=== PATIENT | male | born 1960 ===

== ENCOUNTER 2017-01-27 15:38 | Inpatient (IN) | payer MEDICAID, OTHER ==
[2017-01-27 15:45] VITALS: BMI 26.3
[2017-01-27] MEDS ORDERED: Sodium Chloride 0.9% 1,000 ML IV ONE ×3 (17:06→20:59)
--- NOTE | 2017-01-27 17:52 | C.PDOC ---
History Of Present Illness Patient BIBA from home for evaluation of nausea, vomiting and decreased PO intake for the last 3-4 days. Patient denies any current symptoms. Patient has h/o dementia, CAD, CHF, diabetes, DKA, HTN, schizophrenia, anemia. Time Seen by Provider: 01/27/17 17:05 Chief Complaint (Nursing): GI Problem History Per: Patient History/Exam Limitations: other (poor historian) Current Symptoms Are (Timing): Still Present Severity: Mild Past Medical History Reviewed: Historical Data, Nursing Documentation, Vital Signs Vital Signs: Last Vital Signs Temp 98.0 F 01/27/17 15:45 Pulse 82 01/27/17 15:45 Resp 16 01/27/17 15:45 BP 125/78 01/27/17 15:45 Pulse Ox 100 01/27/17 19:07 - Medical History PMH: Anemia, Anxiety, Bipolar Disorder, CAD, CHF, Dementia, Depression, Diabetes (DKA), Fractures (Skull), HTN, Schizophrenia - [facility] Procedures INSERTION OF ENDOTRACHEAL AIRWAY INTO TRACHEA, VIA OPENING (12/06/14) INTRODUCTION OF SERUM/TOX/VACCINE INTO MUSCLE, PERC APPROACH (11/26/16) OCCUPATIONAL THERAPY (06/01/14) PHYSICAL THERAPY NEC (06/01/14) RESPIRATORY VENTILATION, 24-96 CONSECUTIVE HOURS (12/06/14) VACCINATION NEC (06/15/14) Family History: States: No Known Family Hx - Social History Hx Tobacco Use: Yes Hx Alcohol Use: No Hx Substance Use: No - Immunization History Hx Tetanus Toxoid Vaccination: No Hx Influenza Vaccination: No Hx Pneumococcal Vaccination: No Review Of Systems Except As Marked, All Systems Reviewed And Found Negative. Constitutional: Negative for: Fever, Chills Cardiovascular: Negative for: Chest Pain, Palpitations Respiratory: Negative for: Cough, Shortness of Breath Gastrointestinal: Positive for: Nausea, Vomiting, Abdominal Pain. Negative for : Diarrhea Genitourinary: Negative for: Dysuria, Hematuria Physical Exam - Physical Exam Appears: Well, Non-toxic, No Acute Distress Skin: Normal Color, Warm, Dry Oral Mucosa: Moist Cardiovascular: Rhythm Regular Respiratory: Normal Breath Sounds, No Rales, No Rhonchi, No Wheezing Gastrointestinal/Abdominal: Normal Exam, Bowel Sounds, Soft, No Tenderness Neurological/Psych: Other (awake, alert) ED Course And Treatment - Laboratory Results Result Diagrams: 01/27/17 17:44 11/24/17 17:44 ECG: Interpreted By Me, Viewed By Me (NSR 73 bpm, normal axis, no peaked T waves , no QRS widening, no acute ST/ T wave changes) ECG Interpretation: No Acute Changes O2 Sat by Pulse Oximetry: 100 (RA) Pulse Ox Interpretation: Normal - Radiology CXR: Interpreted by Me, Viewed By Me CXR Interpretation: Yes: No Acute Disease. No: Infiltrates Progress Note: Blood work ordered and reviewed. Patient given IV NS bolus. 6: 25pm- Spoke with intenisivist Dr. Robles Wong, agrees with ICU admission for DKA. Pending call back from hospitalst. VBG and insulin drip ordered, as well as CXR , blood culture, urine culture. 6:35PM- Spoke with hospitalist, she agrees with admission to her service. Disposition - Disposition
[2017-01-27] MEDS ORDERED: Sodium Chloride 0.9% 1,000 ML ONE ×2 (17:54→19:04)
[2017-01-27 17:56] LABS: BASO % 0.5 % (0.0-2.0); EOS % 0.3 % (0.0-4.0); HEMATOCRIT 32.8 % (35.0-51.0); LYMPH # 3.1 K/uL (1.0-4.3); LYMPH % 34.5 % (20.0-40.0); MEAN CELL VOLUME 93.4 fL (80.0-94.0); MEAN CORPUSCULAR HEMOGLOBIN 30.7 pg (27.0-31.0); MEAN CORPUSCULAR HGB CONC 32.9 g/dL (33.0-37.0); MEAN PLATELET VOLUME 8.3 fL (7.2-11.7); MONO # 0.4 K/uL (0.0-0.8); MONO % 4.9 % (0.0-10.0); RED CELL DISTRIBUTION WIDTH 12.6 % (11.5-14.5)
[2017-01-27 18:15] LABS: URINE COLOR YELLOW (YELLOW)
[2017-01-27 18:16] LABS: PH,URINE 5.5 (5.0-8.0); RBC URINE 1 /hpf (0-3); URINE BILIRUBIN NEGATIVE (NEGATIVE); URINE BLOOD NEGATIVE (NEGATIVE); URINE GLUCOSE (UA) >1000 mg/dL (Normal); URINE KETONE 40 mg/dL (NEGATIVE); URINE LEUKOCYTE ESTERASE NEGATIVE Leu/uL (Negative); URINE PROTEIN 30 mg/dL (NEGATIVE); URINE UROBILINOGEN 0.2 mg/dL (0.2-1.0); WBC URINE 2 /hpf (0-5)
[2017-01-27 18:21] LABS: ALB/GLOB RATIO 1.9 (1.0-2.1); ALKALINE PHOSPHATASE 126 U/L (38-126); ALT/SGPT 90 U/L (21-72); AST/SGOT 37 U/L (17-59); BILIRUBIN,TOTAL 0.8 mg/dL (0.2-1.3); BLOOD UREA NITROGEN 48 mg/dL (9-20); CALCIUM 8.9 mg/dl (8.6-10.4); CARBON DIOXIDE 15 mmol/L (22-30); CHLORIDE 85 mmol/L (98-107); GFR AFRICAN-AMERICAN 51; POTASSIUM 6.5 mmol/L (3.6-5.2); SODIUM 120 mmol/L (132-148); TOTAL PROTEIN 6.5 g/dL (6.3-8.3)
[2017-01-27] MEDS ORDERED: Insulin Human Regular 100 UNIT in Sodium Chloride 0.9% 99 ML IV STA ×2 (18:21→21:07)
[2017-01-27] MEDS ORDERED: Calcium Gluconate 4.65 MEQ in Dextrose 5% In Water 100 ML IV STA (18:36)
[2017-01-27 18:51] LABS: GLUCOSE,RANDOM 754 mg/dL (75-110)
--- NOTE | 2017-01-27 18:57 | CP.PCM.CON ---
<Bret Rodriguez - Last Filed: 01/27/17 19:04> History of Present Illness - History of Present Illness History of Present Illness: PGY1 ICU Consult Note for Dr. Wong ICU Consult for DKA w/ anion gap of 27 56 year old male presents to the emergency room and was found to be in DKA. Patient does not appear to be in acute distress. Denied any problems. Did not know why he was at the hospital. Did not respond to other questions when attempting to obtain history. Patient states he is hungry and would like a sandwich. Per ED note, patient has had nausea, vomiting and decreased PO intake for the past 3-4 days. All information from chart review: PMHx: dementia, CAD, CHF, diabetes, DKA, HTN, schizophrenia, anemia. PSH: unknown Allergies: NKDA Medications: As per med rec, questionable compliance Family Hx: Unable to obtain Social Hx: Lives with /family, no tobacco or EtOH reported Surrogate: , info on chart Review of Systems - Review of Systems Systems not reviewed;Unavailable: Other (patient does not answer give any history.) Past Patient History - Infectious Disease Hx of Infectious Diseases: None - Tetanus Immunizations Tetanus Immunization: Unknown - Past Medical History & Family History Past Medical History?: Yes - Past Social History Smoking Status: Heavy Smoker > 10 Cigarettes Daily - CARDIAC Hx Congestive Heart Failure: Yes Hx Hypertension: Yes - PULMONARY Hx Tuberculosis: No (Pt denies) - NEUROLOGICAL Hx Dementia: Yes - HEENT Hx HEENT Problems: No - RENAL Hx Chronic Kidney Disease: No Hx Kidney Stones: No - ENDOCRINE/METABOLIC Hx Endocrine Disorders: Yes Hx Diabetes Mellitus Type 2: Yes - HEMATOLOGICAL/ONCOLOGICAL Hx Anemia: Yes - INTEGUMENTARY Hx Dermatological Problems: No - MUSCULOSKELETAL/RHEUMATOLOGICAL Hx Fractures: Yes (Skull) - GASTROINTESTINAL Hx Gastrointestinal Disorders: Yes HX Swallowing Problems: Yes ( has to blend food) - GENITOURINARY/GYNECOLOGICAL Hx Sexually Transmitted Disorders: No - PSYCHIATRIC Hx Anxiety: Yes Hx Bipolar Disorder: Yes Hx Depression: Yes Hx Schizophrenia: Yes Hx Substance Use: No - SURGICAL HISTORY Hx Surgeries: Yes Other/Comment: metal plates in head (skull fx) - ANESTHESIA Hx Anesthesia: Yes Hx Anesthesia Reactions: No Hx Malignant Hyperthermia: No Meds Allergies/Adverse Reactions: Allergies Allergy/AdvReac Type Severity Reaction Status Date / Time No Known Allergies Allergy Verified 01/27/17 15:42 - Medications Medications: Current Medications Insulin Human Regular 100 unit (/ Sodium Chloride) 100 mls @ 2 mls/hr IV .Q24H STA Stop: 01/28/17 18:20 Sodium Chloride (Sodium Chloride 0.9%) 1,000 mls @ 1,000 mls/hr IV .Q1H ONE Stop: 01/27/17 19:21 Calcium Gluconate 4.65 meq/ (Dextrose) 110 mls @ 1 mls/hr IV ONCE STA Stop: 02/01/17 08:35 Physical Exam - Constitutional Appears: No Acute Distress, Other (disheveled. ) - Head Exam Head Exam: ATRAUMATIC, NORMOCEPHALIC - Eye Exam Eye Exam: EOMI, Normal appearance - ENT Exam ENT Exam: Mucous Membranes Moist - Respiratory Exam Respiratory Exam: NORMAL BREATHING PATTERN. absent: Accessory Muscle Use, Respiratory Distress - Cardiovascular Exam Cardiovascular Exam: REGULAR RHYTHM - GI/Abdominal Exam GI & Abdominal Exam: Soft. absent: Distended, Firm, Guarding, Rigid, Tenderness - Extremities Exam Extremities exam: Positive for: pedal pulses present. Negative for: calf tenderness, pedal edema Additional comments: no hair on legs - Neurological Exam Neurological exam: Alert - Psychiatric Exam Additional comments: Patient states that he is hungry and would like a sandwich. Denied any problems. Did not know why he was at the hospital. Did not respond to other questions when attempting to obtain history. - Skin Skin Exam: Dry, Normal Color, Warm Results - Vital Signs Recent Vital Signs: Last Vital Signs Temp 98.0 F 01/27/17 15:45 Pulse 82 01/27/17 15:45 Resp 16 01/27/17 15:45 BP 125/78 01/27/17 15:45 Pulse Ox 100 01/27/17 18:49 - Labs Result Diagrams: 01/27/17 17:44 01/27/17 17:44 Labs: Laboratory Results - last 24 hr 01/27/17 01/27/17 01/27/17 15:53 17:44 17:44 WBC 9.0 D RBC 3.52 L Hgb 10.8 L Hct 32.8 L MCV 93.4 MCH 30.7 MCHC 32.9 L RDW 12.6 Plt Count 280 D MPV 8.3 Neut % (Auto) 59.8 Lymph % (Auto) 34.5 [place] % (Auto) 4.9 Eos % (Auto) 0.3 Baso % (Auto) 0.5 Neut # 5.4 Lymph # 3.1 [place] # 0.4 Eos # 0.0 Baso # 0.0 Sodium Potassium Chloride Carbon Dioxide Anion Gap BUN Creatinine Est GFR ( Amer) Est GFR (Non-Af Amer) POC Glucose (mg/dL) 468 H* Calcium Total Bilirubin AST ALT Alkaline Phosphatase Total Protein Albumin Globulin Albumin/Globulin Ratio Urine Color Yellow Urine Clarity Clear Urine pH 5.5 Ur Specific [place] 1.015 Urine Protein 30 Urine Glucose (UA) >1000 Urine Ketones 40 Urine Blood Negative Urine Nitrate Negative Urine Bilirubin Negative Urine Urobilinogen 0.2 Ur Leukocyte Esterase Negative Urine WBC (Auto) 2 Urine RBC (Auto) 1 Ur Squamous Epith Cells 2 Serum Ketones 01/27/17 17:44 WBC RBC Hgb Hct MCV MCH MCHC RDW Plt Count MPV Neut % (Auto) Lymph % (Auto) [place] % (Auto) Eos % (Auto) Baso % (Auto) Neut # Lymph # [place] # Eos # Baso # Sodium 120 L* Potassium 6.5 H* D Chloride 85 L Carbon Dioxide 15 L Anion Gap 27 H BUN 48 H Creatinine 1.7 H Est GFR ( Amer) 51 Est GFR (Non-Af Amer) 42 POC Glucose (mg/dL) Calcium 8.9 Total Bilirubin 0.8 AST 37 ALT 90 H D Alkaline Phosphatase 126 D Total Protein 6.5 Albumin 4.3 Globulin 2.2 Albumin/Globulin Ratio 1.9 Urine Color Urine Clarity Urine pH Ur Specific [place] Urine Protein Urine Glucose (UA) Urine Ketones Urine Blood Urine Nitrate Urine Bilirubin Urine Urobilinogen Ur Leukocyte Esterase Urine WBC (Auto) Urine RBC (Auto) Ur Squamous Epith Cells Serum Ketones Large Assessment & Plan - Assessment and Plan (Free Text) Assessment: 56 year old male with PMH of dementia, CAD, CHF, diabetes, HTN, schizophrenia, anemia presenting in DKA. Plan: Endo: Glucose 754 Sodium 120 Potassium 6.5 ED course: Calcium gluconate, 10 units of insulin given, Insulin drip started, 2L NS fluid bolus, ekg, cxr, vbg initial VBG - pO2 33/pCO2 33/HCO3 15.5/pH 7.27 Patient appears comfortable on exam. No agonal breathing. continue insulin drip f/u BMP/mag/phos q6h f/u VBG q2h keep NPO accuchecks q1h Case discussed with Dr. Wong <Ira Wong - Last Filed: 01/28/17 06:47> Meds - Medications Medications: Current Medications Heparin Sodium (Porcine) (Heparin) 5,000 units SC Q12 ALIE Calcium Gluconate 4.65 meq/ (Sodium Chloride) 110 mls @ 1 mls/hr IV ONCE STA Stop: 02/01/17 09:03 Last Admin: 01/27/17 19:13 Dose: 1 mls/hr Insulin Human Regular 100 unit (/ Sodium Chloride) 100 mls @ 2 mls/hr IV .Q24H STA PRN Reason: Protocol Stop: 01/28/17 21:06 Last Titration: 01/28/17 00:00 Dose: 0 ml/hr, 0 mls/hr Dextrose/Lactated Ringer's (Dextrose 5%/Lactated Ringer's) 1,000 mls @ 125 mls/ hr IV .Q8H ALIE Last Admin: 01/28/17 00:00 Dose: 125 mls/hr Insulin Glargine (Lantus) 12 unit SC HS ALIE Last Admin: 01/27/17 21:25 Dose: 12 units Pantoprazole Sodium (Protonix Ec Tab) 40 mg PO DAILY [facility] Results - Vital Signs Recent Vital Signs: Last Vital Signs Temp 98.5 F 01/28/17 04:00 Pulse 67 01/28/17 05:03 Resp 11 L 01/28/17 05:03 BP 104/53 L 01/28/17 04:12 Pulse Ox 98 01/28/17 04:12 - Labs Result Diagrams: 01/28/17 05:59 01/28/17 05:59 Labs: Laboratory Results - last 24 hr 01/27/17 01/27/17 01/27/17 15:53 17:44 17:44 WBC 9.0 D RBC 3.52 L Hgb 10.8 L Hct 32.8 L MCV 93.4 MCH 30.7 MCHC 32.9 L RDW 12.6 Plt Count 280 D MPV 8.3 Neut % (Auto) 59.8 Lymph % (Auto) 34.5 [place] % (Auto) 4.9 Eos % (Auto) 0.3 Baso % (Auto) 0.5 Neut # 5.4 Lymph # 3.1 [place] # 0.4 Eos # 0.0 Baso # 0.0 Puncture Site pO2 Artis Test VBG pH VBG pCO2 VBG HCO3 VBG Total CO2 VBG O2 Sat (Calc) VBG Base Excess VBG Potassium Glucose Lactate Crit Value Called To Crit Value Called By Crit Value Read Back Blood Gas Notified Time Sodium Potassium Chloride Carbon Dioxide Anion Gap BUN Creatinine Est GFR ( Amer) Est GFR (Non-Af Amer) POC Glucose (mg/dL) 468 H* Random Glucose Calcium Phosphorus Magnesium Total Bilirubin AST ALT Alkaline Phosphatase Total Protein Albumin Globulin Albumin/Globulin Ratio Venous Blood Potassium Urine Color Yellow Urine Clarity Clear Urine pH 5.5 Ur Specific [place] 1.015 Urine Protein 30 Urine Glucose (UA) >1000 Urine Ketones 40 Urine Blood Negative Urine Nitrate Negative Urine Bilirubin Negative Urine Urobilinogen 0.2 Ur Leukocyte Esterase Negative Urine WBC (Auto) 2 Urine RBC (Auto) 1 Ur Squamous Epith Cells 2 Serum Ketones Influenza Typ A,B (EIA) 01/27/17 01/27/17 01/27/17 17:44 18:52 18:52 WBC RBC Hgb Hct MCV MCH MCHC RDW Plt Count MPV Neut % (Auto) Lymph % (Auto) [place] % (Auto) Eos % (Auto) Baso % (Auto) Neut # Lymph # [place] # Eos # Baso # Puncture Site pO2 Artis Test VBG pH VBG pCO2 VBG HCO3 VBG Total CO2 VBG O2 Sat (Calc) VBG Base Excess VBG Potassium Glucose Lactate Crit Value Called To Crit Value Called By Crit Value Read Back Blood Gas Notified Time Sodium 120 L* 121 L Potassium 6.5 H* D 6.1 H Chloride 85 L 88 L Carbon Dioxide 15 L 13 L Anion Gap 27 H 26 H BUN 48 H 45 H Creatinine 1.7 H 1.8 H Est GFR ( Amer) 51 47 Est GFR (Non-Af Amer) 42 39 POC Glucose (mg/dL) Random Glucose 754 H* D 720 H* Calcium 8.9 8.1 L Phosphorus 5.4 H Magnesium 2.1 Total Bilirubin 0.8 AST 37 ALT 90 H D Alkaline Phosphatase 126 D Total Protein 6.5 Albumin 4.3 Globulin 2.2 Albumin/Globulin Ratio 1.9 Venous Blood Potassium Urine Color Urine Clarity Urine pH Ur Specific [place] Urine Protein Urine Glucose (UA) Urine Ketones Urine Blood Urine Nitrate Urine Bilirubin Urine Urobilinogen Ur Leukocyte Esterase Urine WBC (Auto) Urine RBC (Auto) Ur Squamous Epith Cells Serum Ketones Large Influenza Typ A,B (EIA) Negative for flu a/b 01/27/17 01/27/17 01/27/17 18:55 19:43 20:59 WBC RBC Hgb Hct MCV MCH MCHC RDW Plt Count MPV Neut % (Auto) Lymph % (Auto) [place] % (Auto) Eos % (Auto) Baso % (Auto) Neut # Lymph # [place] # Eos # Baso # Puncture Site pO2 33 Artis Test VBG pH 7.27 L VBG pCO2 33 L VBG HCO3 15.5 VBG Total CO2 16.2 L VBG O2 Sat (Calc) 72.1 H VBG Base Excess -10.6 L VBG Potassium 6.6 H* Glucose > 750 H* Lactate 2.0 Crit Value Called To T karlos do Crit Value Called By Dom aguirre block mason Crit Value Read Back Y Blood Gas Notified Time 1900 Sodium 147.0 Potassium Chloride 111.0 H Carbon Dioxide Anion Gap BUN Creatinine Est GFR ( Amer) Est GFR (Non-Af Amer) POC Glucose (mg/dL) > 500 H* > 500 H* Random Glucose Calcium Phosphorus Magnesium Total Bilirubin AST ALT Alkaline Phosphatase Total Protein Albumin Globulin Albumin/Globulin Ratio Venous Blood Potassium 6.6 H* Urine Color Urine Clarity Urine pH Ur Specific [place] Urine Protein Urine Glucose (UA) Urine Ketones Urine Blood Urine Nitrate Urine Bilirubin Urine Urobilinogen Ur Leukocyte Esterase Urine WBC (Auto) Urine RBC (Auto) Ur Squamous Epith Cells Serum Ketones Influenza Typ A,B (EIA) 01/27/17 01/27/17 01/27/17 22:28 22:51 22:51 WBC 8.6 RBC 2.83 L Hgb 8.8 L D Hct 25.5 L MCV 90.3 D MCH 31.2 H MCHC 34.6 RDW 12.5 Plt Count 221 MPV 7.1 L Neut % (Auto) 47.2 L Lymph % (Auto) 46.2 H [place] % (Auto) 5.2 Eos % (Auto) 1.0 Baso % (Auto) 0.4 Neut # 4.1 Lymph # 4.0 [place] # 0.4 Eos # 0.1 Baso # 0.0 Puncture Site pO2 Artis Test VBG pH VBG pCO2 VBG HCO3 VBG Total CO2 VBG O2 Sat (Calc) VBG Base Excess VBG Potassium Glucose Lactate Crit Value Called To Crit Value Called By Crit Value Read Back Blood Gas Notified Time Sodium 129 L Potassium 4.0 Chloride 99 Carbon Dioxide 19 L Anion Gap 15 BUN 40 H Creatinine 1.5 Est GFR ( Amer) 58 Est GFR (Non-Af Amer) 48 POC Glucose (mg/dL) 268 H Random Glucose 217 H Calcium 8.4 L Phosphorus 3.3 Magnesium 2.0 Total Bilirubin 0.6 AST 25 ALT 71 Alkaline Phosphatase 88 Total Protein 5.4 L Albumin 3.4 L D Globulin 2.0 L Albumin/Globulin Ratio 1.7 Venous Blood Potassium Urine Color Urine Clarity Urine pH Ur Specific [place] Urine Protein Urine Glucose (UA) Urine Ketones Urine Blood Urine Nitrate Urine Bilirubin Urine Urobilinogen Ur Leukocyte Esterase Urine WBC (Auto) Urine RBC (Auto) Ur Squamous Epith Cells Serum Ketones Influenza Typ A,B (EIA) 01/27/17 01/28/17 01/28/17 23:15 00:23 01:16 WBC RBC Hgb Hct MCV MCH MCHC RDW Plt Count MPV Neut % (Auto) Lymph % (Auto) [place] % (Auto) Eos % (Auto) Baso % (Auto) Neut # Lymph # [place] # Eos # Baso # Puncture Site pO2 Artis Test VBG pH VBG pCO2 VBG HCO3 VBG Total CO2 VBG O2 Sat (Calc) VBG Base Excess VBG Potassium Glucose Lactate Crit Value Called To Crit Value Called By Crit Value Read Back Blood Gas Notified Time Sodium Potassium Chloride Carbon Dioxide Anion Gap BUN Creatinine Est GFR ( Amer) Est GFR (Non-Af Amer) POC Glucose (mg/dL) 189 H 101 86 Random Glucose Calcium Phosphorus Magnesium Total Bilirubin AST ALT Alkaline Phosphatase Total Protein Albumin Globulin Albumin/Globulin Ratio Venous Blood Potassium Urine Color Urine Clarity Urine pH Ur Specific [place] Urine Protein Urine Glucose (UA) Urine Ketones Urine Blood Urine Nitrate Urine Bilirubin Urine Urobilinogen Ur Leukocyte Esterase Urine WBC (Auto) Urine RBC (Auto) Ur Squamous Epith Cells Serum Ketones Influenza Typ A,B (EIA) 01/28/17 01/28/17 01/28/17 02:05 03:12 04:08 WBC RBC Hgb Hct MCV MCH MCHC RDW Plt Count MPV Neut % (Auto) Lymph % (Auto) [place] % (Auto) Eos % (Auto) Baso % (Auto) Neut # Lymph # [place] # Eos # Baso # Puncture Site pO2 Artis Test VBG pH VBG pCO2 VBG HCO3 VBG Total CO2 VBG O2 Sat (Calc) VBG Base Excess VBG Potassium Glucose Lactate Crit Value Called To Crit Value Called By Crit Value Read Back Blood Gas Notified Time Sodium Potassium Chloride Carbon Dioxide Anion Gap BUN Creatinine Est GFR ( Amer) Est GFR (Non-Af Amer) POC Glucose (mg/dL) 88 94 84 Random Glucose Calcium Phosphorus Magnesium Total Bilirubin AST ALT Alkaline Phosphatase Total Protein Albumin Globulin Albumin/Globulin Ratio Venous Blood Potassium Urine Color Urine Clarity Urine pH Ur Specific [place] Urine Protein Urine Glucose (UA) Urine Ketones Urine Blood Urine Nitrate Urine Bilirubin Urine Urobilinogen Ur Leukocyte Esterase Urine WBC (Auto) Urine RBC (Auto) Ur Squamous Epith Cells Serum Ketones Influenza Typ A,B (EIA) 01/28/17 01/28/17 01/28/17 05:01 05:24 05:59 WBC RBC Hgb Hct MCV MCH MCHC RDW Plt Count MPV Neut % (Auto) Lymph % (Auto) [place] % (Auto) Eos % (Auto) Baso % (Auto) Neut # Lymph # [place] # Eos # Baso # Puncture Site Drawn by rn pO2 56 H Artis Test Na VBG pH 7.44 H VBG pCO2 35 L VBG HCO3 24.8 VBG Total CO2 VBG O2 Sat (Calc) 95.7 H VBG Base Excess 0.1 VBG Potassium Glucose Lactate Crit Value Called To Crit Value Called By Crit Value Read Back Blood Gas Notified Time Sodium 135 Potassium 3.7 Chloride 103 Carbon Dioxide 24 Anion Gap 11 BUN 37 H Creatinine 1.3 Est GFR ( Amer) > 60 Est GFR (Non-Af Amer) 57 POC Glucose (mg/dL) 119 H Random Glucose 81 Calcium 8.5 L Phosphorus 3.4 Magnesium 2.0 Total Bilirubin AST ALT Alkaline Phosphatase Total Protein Albumin Globulin Albumin/Globulin Ratio Venous Blood Potassium Urine Color Urine Clarity Urine pH Ur Specific [place] Urine Protein Urine Glucose (UA) Urine Ketones Urine Blood Urine Nitrate Urine Bilirubin Urine Urobilinogen Ur Leukocyte Esterase Urine WBC (Auto) Urine RBC (Auto) Ur Squamous Epith Cells Serum Ketones Influenza Typ A,B (EIA) 01/28/17 01/28/17 05:59 06:24 WBC 8.0 RBC 2.80 L Hgb 8.6 L Hct 25.2 L MCV 89.8 MCH 30.9 MCHC 34.4 RDW 12.5 Plt Count 223 MPV 7.6 Neut % (Auto) 40.4 L Lymph % (Auto) 51.8 H [place] % (Auto) 5.1 Eos % (Auto) 2.1 Baso % (Auto) 0.6 Neut # 3.2 Lymph # 4.1 [place] # 0.4 Eos # 0.2 Baso # 0.0 Puncture Site pO2 Artis Test VBG pH VBG pCO2 VBG HCO3 VBG Total CO2 VBG O2 Sat (Calc) VBG Base Excess VBG Potassium Glucose Lactate Crit Value Called To Crit Value Called By Crit Value Read Back Blood Gas Notified Time Sodium Potassium Chloride Carbon Dioxide Anion Gap BUN Creatinine Est GFR ( Amer) Est GFR (Non-Af Amer) POC Glucose (mg/dL) 106 Random Glucose Calcium Phosphorus Magnesium Total Bilirubin AST ALT Alkaline Phosphatase Total Protein Albumin Globulin Albumin/Globulin Ratio Venous Blood Potassium Urine Color Urine Clarity Urine pH Ur Specific [place] Urine Protein Urine Glucose (UA) Urine Ketones Urine Blood Urine Nitrate Urine Bilirubin Urine Urobilinogen Ur Leukocyte Esterase Urine WBC (Auto) Urine RBC (Auto) Ur Squamous Epith Cells Serum Ketones Influenza Typ A,B (EIA) Assessment & Plan - Assessment and Plan (Free Text) Plan: Patient seen and examined with above resident. Patient admitted to ICU for DKA. continue DKA protocol -DKA -above resident has doumented my clinical findgins and management -cc time 35 minutes
[2017-01-27 18:59] LABS: VENOUS BLOOD GAS BASE EXCESS -10.6 mmol/L (0.0-2.0); VENOUS BLOOD GAS PCO2 33 mmHg (40-60); VENOUS BLOOD PH 7.27 (7.32-7.43)
[2017-01-27] MEDS ORDERED: Calcium Gluconate 4.65 mEq/10 ml Inj ONE (19:04)
[2017-01-27] MEDS ORDERED: (Novolin R) Insulin Human Regular 100 units/ml vial IV ONE (19:07)
[2017-01-27 19:16] LABS: CALCIUM 8.1 mg/dl (8.6-10.4); MAGNESIUM 2.1 mg/dL (1.6-2.3); PHOSPHOROUS 5.4 mg/dL (2.5-4.5); POTASSIUM 6.1 mmol/L (3.6-5.2)
[2017-01-27] MEDS ORDERED: (Novolin R) Insulin Human Regular 100 units/ml vial ONE (19:17)
--- NOTE | 2017-01-27 19:58 | CP.PCM.HP ---
<Mirna Garcia - Last Filed: 01/27/17 19:55> History of Present Illness - History of Present Illness History of Present Illness: 56 year old male presents to the emergency room and was found to be in DKA. Patient does not appear to be in acute distress. Denied any problems.Stated he was in the hospital because of his sugar but does not know what happened with his sugar. Patient stated he was in the hospital but could not state what year it was or who the president currently is. Did not respond to other questions when attempting to obtain history. Per ED note, patient has had nausea, vomiting and decreased PO intake for the past 3-4 days. All information from chart review: PMHx: dementia, CAD, CHF, diabetes, DKA, HTN, schizophrenia, anemia. PSH: unknown Allergies: NKDA Medications: As per med rec, questionable compliance Family History: Unable to obtain Social History: Lives with /family, no tobacco or EtOH reported Surrogate: , info on chart Present on Admission - Present on Admission Any Indicators Present on Admission: No Review of Systems - Review of Systems Systems not reviewed;Unavailable: Dementia (patient does not answer give any history) Past Patient History - Infectious Disease Hx of Infectious Diseases: None - Tetanus Immunizations Tetanus Immunization: Unknown - Past Medical History & Family History Past Medical History?: Yes - Past Social History Smoking Status: Heavy Smoker > 10 Cigarettes Daily - CARDIAC Hx Congestive Heart Failure: Yes Hx Hypertension: Yes - PULMONARY Hx Tuberculosis: No (Pt denies) - NEUROLOGICAL Hx Dementia: Yes - HEENT Hx HEENT Problems: No - RENAL Hx Chronic Kidney Disease: No Hx Kidney Stones: No - ENDOCRINE/METABOLIC Hx Endocrine Disorders: Yes Hx Diabetes Mellitus Type 2: Yes - HEMATOLOGICAL/ONCOLOGICAL Hx Anemia: Yes - INTEGUMENTARY Hx Dermatological Problems: No - MUSCULOSKELETAL/RHEUMATOLOGICAL Hx Fractures: Yes (Skull) - GASTROINTESTINAL Hx Gastrointestinal Disorders: Yes HX Swallowing Problems: Yes ( has to blend food) - GENITOURINARY/GYNECOLOGICAL Hx Sexually Transmitted Disorders: No - PSYCHIATRIC Hx Anxiety: Yes Hx Bipolar Disorder: Yes Hx Depression: Yes Hx Schizophrenia: Yes Hx Substance Use: No - SURGICAL HISTORY Hx Surgeries: Yes Other/Comment: metal plates in head (skull fx) - ANESTHESIA Hx Anesthesia: Yes Hx Anesthesia Reactions: No Hx Malignant Hyperthermia: No Meds Allergies/Adverse Reactions: Allergies Allergy/AdvReac Type Severity Reaction Status Date / Time No Known Allergies Allergy Verified 01/27/17 15:42 Physical Exam - Constitutional Appears: No Acute Distress, Chronically Ill - Head Exam Head Exam: ATRAUMATIC, NORMAL INSPECTION - Eye Exam Eye Exam: EOMI, Normal appearance - ENT Exam ENT Exam: Mucous Membranes Moist - Respiratory Exam Respiratory Exam: Clear to Auscultation Bilateral, NORMAL BREATHING PATTERN - Cardiovascular Exam Cardiovascular Exam: REGULAR RHYTHM - GI/Abdominal Exam GI & Abdominal Exam: Normal Bowel Sounds, Soft. absent: Tenderness - Extremities Exam Extremities exam: Positive for: normal inspection. Negative for: joint swelling , pedal edema, tenderness - Neurological Exam Neurological exam: Alert - Skin Skin Exam: Normal Color, Warm Results - Vital Signs Recent Vital Signs: Last Vital Signs Temp 98 F 01/27/17 19:44 Pulse 80 01/27/17 19:44 Resp 16 01/27/17 19:44 BP 120/70 01/27/17 19:44 Pulse Ox 100 01/27/17 19:44 - Labs Result Diagrams: 01/27/17 17:44 01/27/17 18:52 Labs: Laboratory Results - last 24 hr 01/27/17 01/27/17 01/27/17 15:53 17:44 17:44 WBC 9.0 D RBC 3.52 L Hgb 10.8 L Hct 32.8 L MCV 93.4 MCH 30.7 MCHC 32.9 L RDW 12.6 Plt Count 280 D MPV 8.3 Neut % (Auto) 59.8 Lymph % (Auto) 34.5 [place] % (Auto) 4.9 Eos % (Auto) 0.3 Baso % (Auto) 0.5 Neut # 5.4 Lymph # 3.1 [place] # 0.4 Eos # 0.0 Baso # 0.0 pO2 VBG pH VBG pCO2 VBG HCO3 VBG Total CO2 VBG O2 Sat (Calc) VBG Base Excess VBG Potassium Glucose Lactate Crit Value Called To Crit Value Called By Crit Value Read Back Blood Gas Notified Time Sodium Potassium Chloride Carbon Dioxide Anion Gap BUN Creatinine Est GFR ( Amer) Est GFR (Non-Af Amer) POC Glucose (mg/dL) 468 H* Random Glucose Calcium Phosphorus Magnesium Total Bilirubin AST ALT Alkaline Phosphatase Total Protein Albumin Globulin Albumin/Globulin Ratio Venous Blood Potassium Urine Color Yellow Urine Clarity Clear Urine pH 5.5 Ur Specific [place] 1.015 Urine Protein 30 Urine Glucose (UA) >1000 Urine Ketones 40 Urine Blood Negative Urine Nitrate Negative Urine Bilirubin Negative Urine Urobilinogen 0.2 Ur Leukocyte Esterase Negative Urine WBC (Auto) 2 Urine RBC (Auto) 1 Ur Squamous Epith Cells 2 Serum Ketones Influenza Typ A,B (EIA) 01/27/17 01/27/17 01/27/17 17:44 18:52 18:52 WBC RBC Hgb Hct MCV MCH MCHC RDW Plt Count MPV Neut % (Auto) Lymph % (Auto) [place] % (Auto) Eos % (Auto) Baso % (Auto) Neut # Lymph # [place] # Eos # Baso # pO2 VBG pH VBG pCO2 VBG HCO3 VBG Total CO2 VBG O2 Sat (Calc) VBG Base Excess VBG Potassium Glucose Lactate Crit Value Called To Crit Value Called By Crit Value Read Back Blood Gas Notified Time Sodium 120 L* 121 L Potassium 6.5 H* D 6.1 H Chloride 85 L 88 L Carbon Dioxide 15 L 13 L Anion Gap 27 H 26 H BUN 48 H 45 H Creatinine 1.7 H 1.8 H Est GFR ( Amer) 51 47 Est GFR (Non-Af Amer) 42 39 POC Glucose (mg/dL) Random Glucose 754 H* D 720 H* Calcium 8.9 8.1 L Phosphorus 5.4 H Magnesium 2.1 Total Bilirubin 0.8 AST 37 ALT 90 H D Alkaline Phosphatase 126 D Total Protein 6.5 Albumin 4.3 Globulin 2.2 Albumin/Globulin Ratio 1.9 Venous Blood Potassium Urine Color Urine Clarity Urine pH Ur Specific [place] Urine Protein Urine Glucose (UA) Urine Ketones Urine Blood Urine Nitrate Urine Bilirubin Urine Urobilinogen Ur Leukocyte Esterase Urine WBC (Auto) Urine RBC (Auto) Ur Squamous Epith Cells Serum Ketones Large Influenza Typ A,B (EIA) Negative for flu a/b 01/27/17 01/27/17 18:55 19:43 WBC RBC Hgb Hct MCV MCH MCHC RDW Plt Count MPV Neut % (Auto) Lymph % (Auto) [place] % (Auto) Eos % (Auto) Baso % (Auto) Neut # Lymph # [place] # Eos # Baso # pO2 33 VBG pH 7.27 L VBG pCO2 33 L VBG HCO3 15.5 VBG Total CO2 16.2 L VBG O2 Sat (Calc) 72.1 H VBG Base Excess -10.6 L VBG Potassium 6.6 H* Glucose > 750 H* Lactate 2.0 Crit Value Called To T karlos do Crit Value Called By Dom aguirre student services coordinator Crit Value Read Back Y Blood Gas Notified Time 190 Sodium 147.0 Potassium Chloride 111.0 H Carbon Dioxide Anion Gap BUN Creatinine Est GFR ( Amer) Est GFR (Non-Af Amer) POC Glucose (mg/dL) > 500 H* Random Glucose Calcium Phosphorus Magnesium Total Bilirubin AST ALT Alkaline Phosphatase Total Protein Albumin Globulin Albumin/Globulin Ratio Venous Blood Potassium 6.6 H* Urine Color Urine Clarity Urine pH Ur Specific [place] Urine Protein Urine Glucose (UA) Urine Ketones Urine Blood Urine Nitrate Urine Bilirubin Urine Urobilinogen Ur Leukocyte Esterase Urine WBC (Auto) Urine RBC (Auto) Ur Squamous Epith Cells Serum Ketones Influenza Typ A,B (EIA) Assessment & Plan - Assessment and Plan (Free Text) Assessment: 56 year old male presents to the emergency room and was found to be in DKA with an anion gap of 20. 1.) DKA - Admitted to ICU - Glucose 754 - Sodium 120 - Potassium 6.5 - ED course: Calcium gluconate, 10 units of insulin given, Insulin drip started , 2L NS fluid bolus, ekg, cxr, vbg initial VBG - pO2 33/pCO2 33/HCO3 15.5/pH 7.27 - continue insulin drip - f/u x-ray - f/u BMP/mag/phos q6h - f/u VBG q2h - keep NPO - accuchecks q1h <Florian Botello - Last Filed: 01/28/17 06:27> Results - Vital Signs Recent Vital Signs: Last Vital Signs Temp 98.5 F 01/28/17 04:00 Pulse 67 01/28/17 05:03 Resp 11 L 01/28/17 05:03 BP 104/53 L 01/28/17 04:12 Pulse Ox 98 01/28/17 04:12 - Labs Result Diagrams: 01/28/17 05:59 01/27/17 22:51 Labs: Laboratory Results - last 24 hr 01/27/17 01/27/17 01/27/17 15:53 17:44 17:44 WBC 9.0 D RBC 3.52 L Hgb 10.8 L Hct 32.8 L MCV 93.4 MCH 30.7 MCHC 32.9 L RDW 12.6 Plt Count 280 D MPV 8.3 Neut % (Auto) 59.8 Lymph % (Auto) 34.5 [place] % (Auto) 4.9 Eos % (Auto) 0.3 Baso % (Auto) 0.5 Neut # 5.4 Lymph # 3.1 [place] # 0.4 Eos # 0.0 Baso # 0.0 Puncture Site pO2 Artis Test VBG pH VBG pCO2 VBG HCO3 VBG Total CO2 VBG O2 Sat (Calc) VBG Base Excess VBG Potassium Glucose Lactate Crit Value Called To Crit Value Called By Crit Value Read Back Blood Gas Notified Time Sodium Potassium Chloride Carbon Dioxide Anion Gap BUN Creatinine Est GFR ( Amer) Est GFR (Non-Af Amer) POC Glucose (mg/dL) 468 H* Random Glucose Calcium Phosphorus Magnesium Total Bilirubin AST ALT Alkaline Phosphatase Total Protein Albumin Globulin Albumin/Globulin Ratio Venous Blood Potassium Urine Color Yellow Urine Clarity Clear Urine pH 5.5 Ur Specific [place] 1.015 Urine Protein 30 Urine Glucose (UA) >1000 Urine Ketones 40 Urine Blood Negative Urine Nitrate Negative Urine Bilirubin Negative Urine Urobilinogen 0.2 Ur Leukocyte Esterase Negative Urine WBC (Auto) 2 Urine RBC (Auto) 1 Ur Squamous Epith Cells 2 Serum Ketones Influenza Typ A,B (EIA) 01/27/17 01/27/17 01/27/17 17:44 18:52 18:52 WBC RBC Hgb Hct MCV MCH MCHC RDW Plt Count MPV Neut % (Auto) Lymph % (Auto) [place] % (Auto) Eos % (Auto) Baso % (Auto) Neut # Lymph # [place] # Eos # Baso # Puncture Site pO2 Artis Test VBG pH VBG pCO2 VBG HCO3 VBG Total CO2 VBG O2 Sat (Calc) VBG Base Excess VBG Potassium Glucose Lactate Crit Value Called To Crit Value Called By Crit Value Read Back Blood Gas Notified Time Sodium 120 L* 121 L Potassium 6.5 H* D 6.1 H Chloride 85 L 88 L Carbon Dioxide 15 L 13 L Anion Gap 27 H 26 H BUN 48 H 45 H Creatinine 1.7 H 1.8 H Est GFR ( Amer) 51 47 Est GFR (Non-Af Amer) 42 39 POC Glucose (mg/dL) Random Glucose 754 H* D 720 H* Calcium 8.9 8.1 L Phosphorus 5.4 H Magnesium 2.1 Total Bilirubin 0.8 AST 37 ALT 90 H D Alkaline Phosphatase 126 D Total Protein 6.5 Albumin 4.3 Globulin 2.2 Albumin/Globulin Ratio 1.9 Venous Blood Potassium Urine Color Urine Clarity Urine pH Ur Specific [place] Urine Protein Urine Glucose (UA) Urine Ketones Urine Blood Urine Nitrate Urine Bilirubin Urine Urobilinogen Ur Leukocyte Esterase Urine WBC (Auto) Urine RBC (Auto) Ur Squamous Epith Cells Serum Ketones Large Influenza Typ A,B (EIA) Negative for flu a/b 01/27/17 01/27/17 01/27/17 18:55 19:43 20:59 WBC RBC Hgb Hct MCV MCH MCHC RDW Plt Count MPV Neut % (Auto) Lymph % (Auto) [place] % (Auto) Eos % (Auto) Baso % (Auto) Neut # Lymph # [place] # Eos # Baso # Puncture Site pO2 33 Artis Test VBG pH 7.27 L VBG pCO2 33 L VBG HCO3 15.5 VBG Total CO2 16.2 L VBG O2 Sat (Calc) 72.1 H VBG Base Excess -10.6 L VBG Potassium 6.6 H* Glucose > 750 H* Lactate 2.0 Crit Value Called To Glenna everett do Crit Value Called By Dom aguirre student services coordinator Crit Value Read Back Y Blood Gas Notified Time 1900 Sodium 147.0 Potassium Chloride 111.0 H Carbon Dioxide Anion Gap BUN Creatinine Est GFR ( Amer) Est GFR (Non-Af Amer) POC Glucose (mg/dL) > 500 H* > 500 H* Random Glucose Calcium Phosphorus Magnesium Total Bilirubin AST ALT Alkaline Phosphatase Total Protein Albumin Globulin Albumin/Globulin Ratio Venous Blood Potassium 6.6 H* Urine Color Urine Clarity Urine pH Ur Specific [place] Urine Protein Urine Glucose (UA) Urine Ketones Urine Blood Urine Nitrate Urine Bilirubin Urine Urobilinogen Ur Leukocyte Esterase Urine WBC (Auto) Urine RBC (Auto) Ur Squamous Epith Cells Serum Ketones Influenza Typ A,B (EIA) 01/27/17 01/27/17 01/27/17 22:28 22:51 22:51 WBC 8.6 RBC 2.83 L Hgb 8.8 L D Hct 25.5 L MCV 90.3 D MCH 31.2 H MCHC 34.6 RDW 12.5 Plt Count 221 MPV 7.1 L Neut % (Auto) 47.2 L Lymph % (Auto) 46.2 H [place] % (Auto) 5.2 Eos % (Auto) 1.0 Baso % (Auto) 0.4 Neut # 4.1 Lymph # 4.0 [place] # 0.4 Eos # 0.1 Baso # 0.0 Puncture Site pO2 Artis Test VBG pH VBG pCO2 VBG HCO3 VBG Total CO2 VBG O2 Sat (Calc) VBG Base Excess VBG Potassium Glucose Lactate Crit Value Called To Crit Value Called By Crit Value Read Back Blood Gas Notified Time Sodium 129 L Potassium 4.0 Chloride 99 Carbon Dioxide 19 L Anion Gap 15 BUN 40 H Creatinine 1.5 Est GFR ( Amer) 58 Est GFR (Non-Af Amer) 48 POC Glucose (mg/dL) 268 H Random Glucose 217 H Calcium 8.4 L Phosphorus 3.3 Magnesium 2.0 Total Bilirubin 0.6 AST 25 ALT 71 Alkaline Phosphatase 88 Total Protein 5.4 L Albumin 3.4 L D Globulin 2.0 L Albumin/Globulin Ratio 1.7 Venous Blood Potassium Urine Color Urine Clarity Urine pH Ur Specific [place] Urine Protein Urine Glucose (UA) Urine Ketones Urine Blood Urine Nitrate Urine Bilirubin Urine Urobilinogen Ur Leukocyte Esterase Urine WBC (Auto) Urine RBC (Auto) Ur Squamous Epith Cells Serum Ketones Influenza Typ A,B (EIA) 01/27/17 01/28/17 01/28/17 23:15 00:23 01:16 WBC RBC Hgb Hct MCV MCH MCHC RDW Plt Count MPV Neut % (Auto) Lymph % (Auto) [place] % (Auto) Eos % (Auto) Baso % (Auto) Neut # Lymph # [place] # Eos # Baso # Puncture Site pO2 Artis Test VBG pH VBG pCO2 VBG HCO3 VBG Total CO2 VBG O2 Sat (Calc) VBG Base Excess VBG Potassium Glucose Lactate Crit Value Called To Crit Value Called By Crit Value Read Back Blood Gas Notified Time Sodium Potassium Chloride Carbon Dioxide Anion Gap BUN Creatinine Est GFR ( Amer) Est GFR (Non-Af Amer) POC Glucose (mg/dL) 189 H 101 86 Random Glucose Calcium Phosphorus Magnesium Total Bilirubin AST ALT Alkaline Phosphatase Total Protein Albumin Globulin Albumin/Globulin Ratio Venous Blood Potassium Urine Color Urine Clarity Urine pH Ur Specific [place] Urine Protein Urine Glucose (UA) Urine Ketones Urine Blood Urine Nitrate Urine Bilirubin Urine Urobilinogen Ur Leukocyte Esterase Urine WBC (Auto) Urine RBC (Auto) Ur Squamous Epith Cells Serum Ketones Influenza Typ A,B (EIA) 01/28/17 01/28/17 01/28/17 02:05 03:12 04:08 WBC RBC Hgb Hct MCV MCH MCHC RDW Plt Count MPV Neut % (Auto) Lymph % (Auto) [place] % (Auto) Eos % (Auto) Baso % (Auto) Neut # Lymph # [place] # Eos # Baso # Puncture Site pO2 Artis Test VBG pH VBG pCO2 VBG HCO3 VBG Total CO2 VBG O2 Sat (Calc) VBG Base Excess VBG Potassium Glucose Lactate Crit Value Called To Crit Value Called By Crit Value Read Back Blood Gas Notified Time Sodium Potassium Chloride Carbon Dioxide Anion Gap BUN Creatinine Est GFR ( Amer) Est GFR (Non-Af Amer) POC Glucose (mg/dL) 88 94 84 Random Glucose Calcium Phosphorus Magnesium Total Bilirubin AST ALT Alkaline Phosphatase Total Protein Albumin Globulin Albumin/Globulin Ratio Venous Blood Potassium Urine Color Urine Clarity Urine pH Ur Specific [place] Urine Protein Urine Glucose (UA) Urine Ketones Urine Blood Urine Nitrate Urine Bilirubin Urine Urobilinogen Ur Leukocyte Esterase Urine WBC (Auto) Urine RBC (Auto) Ur Squamous Epith Cells Serum Ketones Influenza Typ A,B (EIA) 01/28/17 01/28/17 01/28/17 05:01 05:24 05:59 WBC 8.0 RBC 2.80 L Hgb 8.6 L Hct 25.2 L MCV 89.8 MCH 30.9 MCHC 34.4 RDW 12.5 Plt Count 223 MPV 7.6 Neut % (Auto) 40.4 L Lymph % (Auto) 51.8 H [place] % (Auto) 5.1 Eos % (Auto) 2.1 Baso % (Auto) 0.6 Neut # 3.2 Lymph # 4.1 [place] # 0.4 Eos # 0.2 Baso # 0.0 Puncture Site Drawn by rn pO2 56 H Artis Test Na VBG pH 7.44 H VBG pCO2 35 L VBG HCO3 24.8 VBG Total CO2 VBG O2 Sat (Calc) 95.7 H VBG Base Excess 0.1 VBG Potassium Glucose Lactate Crit Value Called To Crit Value Called By Crit Value Read Back Blood Gas Notified Time Sodium Potassium Chloride Carbon Dioxide Anion Gap BUN Creatinine Est GFR ( Amer) Est GFR (Non-Af Amer) POC Glucose (mg/dL) 119 H Random Glucose Calcium Phosphorus Magnesium Total Bilirubin AST ALT Alkaline Phosphatase Total Protein Albumin Globulin Albumin/Globulin Ratio Venous Blood Potassium Urine Color Urine Clarity Urine pH Ur Specific [place] Urine Protein Urine Glucose (UA) Urine Ketones Urine Blood Urine Nitrate Urine Bilirubin Urine Urobilinogen Ur Leukocyte Esterase Urine WBC (Auto) Urine RBC (Auto) Ur Squamous Epith Cells Serum Ketones Influenza Typ A,B (EIA) Assessment & Plan - Date & Time Date: 01/28/17 (I have seen and examined the patient. I agree with the findings and plan of care as documented by Dr. Garcia. Patient with DKA. Admit to ICU for close monitoring and management. Insulin drip. Monitor labs and ABG and adjust treatment as necessary. IVF. Monitor for acute changes.) Time: 06:26 Attending/Attestation - Attestation I have personally seen and examined this patient.: Yes I have fully participated in the care of the patient.: Yes I have reviewed all pertinent clinical information: Yes
[2017-01-27] MEDS ORDERED: (Lantus) Insulin Glargine, Recombinant SC SCH (22:00)
[2017-01-27 22:54] LABS: BASO % 0.4 % (0.0-2.0); EOS # 0.1 K/uL (0.0-0.7); HEMATOCRIT 25.5 % (35.0-51.0); LYMPH % 46.2 % (20.0-40.0); MEAN CELL VOLUME 90.3 fL (80.0-94.0); MEAN CORPUSCULAR HEMOGLOBIN 31.2 pg (27.0-31.0); MEAN CORPUSCULAR HGB CONC 34.6 g/dL (33.0-37.0); MEAN PLATELET VOLUME 7.1 fL (7.2-11.7); MONO # 0.4 K/uL (0.0-0.8); MONO % 5.2 % (0.0-10.0); RED CELL DISTRIBUTION WIDTH 12.5 % (11.5-14.5); WHITE BLOOD COUNT 8.6 K/uL (4.8-10.8)
[2017-01-27 23:10] LABS: ALB/GLOB RATIO 1.7 (1.0-2.1); BILIRUBIN,TOTAL 0.6 mg/dL (0.2-1.3); CALCIUM 8.4 mg/dl (8.6-10.4); PHOSPHOROUS 3.3 mg/dL (2.5-4.5); TOTAL PROTEIN 5.4 g/dL (6.3-8.3)
[2017-01-27] MEDS ORDERED: Dextrose 5%/Lactated Ringer's 1,000 ML IV SCH (23:45)
[2017-01-28 05:32] LABS: VENOUS BLOOD GAS BASE EXCESS 0.1 mmol/L (0.0-2.0); VENOUS BLOOD GAS PCO2 35 mmHg (40-60); VENOUS BLOOD PH 7.44 (7.32-7.43)
[2017-01-28 06:07] LABS: BASO % 0.6 % (0.0-2.0); EOS # 0.2 K/uL (0.0-0.7); EOS % 2.1 % (0.0-4.0); HEMATOCRIT 25.2 % (35.0-51.0); LYMPH # 4.1 K/uL (1.0-4.3); LYMPH % 51.8 % (20.0-40.0); MEAN CELL VOLUME 89.8 fL (80.0-94.0); MEAN CORPUSCULAR HEMOGLOBIN 30.9 pg (27.0-31.0); MEAN CORPUSCULAR HGB CONC 34.4 g/dL (33.0-37.0); MEAN PLATELET VOLUME 7.6 fL (7.2-11.7); MONO # 0.4 K/uL (0.0-0.8); MONO % 5.1 % (0.0-10.0); RED CELL DISTRIBUTION WIDTH 12.5 % (11.5-14.5)
[2017-01-28 06:40] LABS: BLOOD UREA NITROGEN 37 mg/dL (9-20); CALCIUM 8.5 mg/dl (8.6-10.4); CARBON DIOXIDE 24 mmol/L (22-30); CHLORIDE 103 mmol/L (98-107); GFR AFRICAN-AMERICAN > 60; GLUCOSE,RANDOM 81 mg/dL (75-110); PHOSPHOROUS 3.4 mg/dL (2.5-4.5); POTASSIUM 3.7 mmol/L (3.6-5.2); SODIUM 135 mmol/L (132-148)
--- NOTE | 2017-01-28 09:21 | CP.PCM.DIS ---
Provider - Provider Date of Admission: 01/27/17 18:28 Attending physician: Lia Saavedra MD Primary care physician: PMD: Jimenez Time Spent in preparation of Discharge (in minutes): 31 Diagnosis - Discharge Diagnosis (1) DKA (diabetic ketoacidoses) Status: Acute Priority: High Comment: Patient admitted to critical care unit, monitored, stablized and transfered out from the unit. Patient tolerating diet and reports feeling better. Provided insulin, equipement to check his sugars including test strips, lancets, syringes (one month supply) and prescription for new glucometer since he does not have a working one at home. Discussed with patient's and patient's PMD at time of discharge. (2) Diabetes Status: Chronic (3) Non-compliance Status: Chronic Hospital Course - Lab Results Lab Results: Most Recent Lab Values WBC 8.0 K/uL (4.8-10.8) 01/28/17 05:59 RBC 2.80 Mil/uL (4.40-5.90) L 01/28/17 05:59 Hgb 8.6 g/dL (12.0-18.0) L 01/28/17 05:59 Hct 25.2 % (35.0-51.0) L 01/28/17 05:59 MCV 89.8 fL (80.0-94.0) 01/28/17 05:59 MCH 30.9 pg (27.0-31.0) 01/28/17 05:59 MCHC 34.4 g/dL (33.0-37.0) 01/28/17 05:59 RDW 12.5 % (11.5-14.5) 01/28/17 05:59 Plt Count 223 K/uL (130-400) 01/28/17 05:59 MPV 7.6 fL (7.2-11.7) 01/28/17 05:59 Neut % (Auto) 40.4 % (50.0-75.0) L 01/28/17 05:59 Lymph % (Auto) 51.8 % (20.0-40.0) H 01/28/17 05:59 Treg[place] % (Auto) 5.1 % (0.0-10.0) 01/28/17 05:59 Eos % (Auto) 2.1 % (0.0-4.0) 01/28/17 05:59 Baso % (Auto) 0.6 % (0.0-2.0) 01/28/17 05:59 Neut # 3.2 K/uL (1.8-7.0) 01/28/17 05:59 Lymph # 4.1 K/uL (1.0-4.3) 01/28/17 05:59 [place] # 0.4 K/uL (0.0-0.8) 01/28/17 05:59 Eos # 0.2 K/uL (0.0-0.7) 01/28/17 05:59 Baso # 0.0 K/uL (0.0-0.2) 01/28/17 05:59 Puncture Site Drawn by rn 01/28/17 05:24 pO2 56 mm/Hg (30-55) H 01/28/17 05:24 Artis Test Na 01/28/17 05:24 VBG pH 7.44 (7.32-7.43) H 01/28/17 05:24 VBG pCO2 35 mmHg (40-60) L 01/28/17 05:24 VBG HCO3 24.8 mmol/L 01/28/17 05:24 VBG Total CO2 16.2 mmol/L (22-28) L 01/27/17 18:55 VBG O2 Sat (Calc) 95.7 % (40-65) H 01/28/17 05:24 VBG Base Excess 0.1 mmol/L (0.0-2.0) 01/28/17 05:24 VBG Potassium 6.6 mmol/L (3.6-5.2) H* 01/27/17 18:55 Sodium 147.0 mmol/l (132-148) 01/27/17 18:55 Chloride 111.0 mmol/L (98-107) H 01/27/17 18:55 Glucose > 750 mg/dl (75-110) H* 01/27/17 18:55 Lactate 2.0 mmol/L (0.7-2.1) 01/27/17 18:55 Crit Value Called To Glenna everett do 01/27/17 18:55 Crit Value Called By Dom aguirre nursing student 01/27/17 18:55 Crit Value Read Back Y 01/27/17 18:55 Blood Gas Notified Time 1900 01/27/17 18:55 Sodium 135 mmol/L (132-148) 01/28/17 05:59 Potassium 3.7 mmol/L (3.6-5.2) 01/28/17 05:59 Chloride 103 mmol/L (98-107) 01/28/17 05:59 Carbon Dioxide 24 mmol/L (22-30) 01/28/17 05:59 Anion Gap 11 (10-20) 01/28/17 05:59 BUN 37 mg/dL (9-20) H 01/28/17 05:59 Creatinine 1.3 mg/dL (0.8-1.5) 01/28/17 05:59 Est GFR ( Amer) > 60 01/28/17 05:59 Est GFR (Non-Af Amer) 57 01/28/17 05:59 POC Glucose (mg/dL) 105 mg/dL (65-110) 01/28/17 07:12 Random Glucose 81 mg/dL (75-110) 01/28/17 05:59 Calcium 8.5 mg/dl (8.6-10.4) L 01/28/17 05:59 Phosphorus 3.4 mg/dL (2.5-4.5) 01/28/17 05:59 Magnesium 2.0 mg/dL (1.6-2.3) 01/28/17 05:59 Total Bilirubin 0.6 mg/dL (0.2-1.3) 01/27/17 22:51 AST 25 U/L (17-59) 01/27/17 22:51 ALT 71 U/L (21-72) 01/27/17 22:51 Alkaline Phosphatase 88 U/L (38-126) 01/27/17 22:51 Total Protein 5.4 g/dL (6.3-8.3) L 01/27/17 22:51 Albumin 3.4 g/dL (3.5-5.0) L D 01/27/17 22:51 Globulin 2.0 gm/dL (2.2-3.9) L 01/27/17 22:51 Albumin/Globulin Ratio 1.7 (1.0-2.1) 01/27/17 22:51 Venous Blood Potassium 6.6 mmol/L (3.6-5.2) H* 01/27/17 18:55 Urine Color Yellow (YELLOW) 01/27/17 17:44 Urine Clarity Clear (Clear) 01/27/17 17:44 Urine pH 5.5 (5.0-8.0) 01/27/17 17:44 Ur Specific [place] 1.015 (1.003-1.030) 01/27/17 17:44 Urine Protein 30 mg/dL (NEGATIVE) 01/27/17 17:44 Urine Glucose (UA) >1000 mg/dL (Normal) 01/27/17 17:44 Urine Ketones 40 mg/dL (NEGATIVE) 01/27/17 17:44 Urine Blood Negative (NEGATIVE) 01/27/17 17:44 Urine Nitrate Negative (NEGATIVE) 01/27/17 17:44 Urine Bilirubin Negative (NEGATIVE) 01/27/17 17:44 Urine Urobilinogen 0.2 mg/dL (0.2-1.0) 01/27/17 17:44 Ur Leukocyte Esterase Negative William/uL (Negative) 01/27/17 17:44 Urine WBC (Auto) 2 /hpf (0-5) 01/27/17 17:44 Urine RBC (Auto) 1 /hpf (0-3) 01/27/17 17:44 Ur Squamous Epith Cells 2 /hpf (0-5) 01/27/17 17:44 Serum Ketones Large (NEGATIVE) 01/27/17 17:44 Influenza Typ A,B (EIA) Negative for flu a/b (NEGATIVE) 01/27/17 18:52 - Hospital Course Hospital Course: 56 year old male presents to the emergency room and was found to be in DKA. Patient does not appear to be in acute distress. Denied any problems.Stated he was in the hospital because of his sugar but does not know what happened with his sugar. Patient stated he was in the hospital but could not state what year it was or who the president currently is. Did not respond to other questions when attempting to obtain history. Per ED note, patient has had nausea, vomiting and decreased PO intake for the past 3-4 days. All information from chart review: PMHx: dementia, CAD, CHF, diabetes, DKA, HTN, schizophrenia, anemia. PSH: unknown Allergies: NKDA Medications: As per med rec, questionable compliance Family History: Unable to obtain Social History: Lives with /family, no tobacco or EtOH reported Surrogate: , info on chart Patient admitted to the critical care unit for DKA. patient stabilized and transferred out from the ICU this morning. Patient reports he is feeling well. Patient tolerating diet at bedside. Patient reports he has a homemaker that helps to take care of him. Patient has history of noncompliance on medications. Patient reports he has insulin at home. Patient denies any acute complaints at bedside. Patient tolerating breakfast at bedside. I spoke with patient's Amanda Hill ([phone]) given patient's history of dementia. confirms they do have sufficient insulin but do not having working glucometer at home. I advised patient should be checking his sugars prior to each meal and in the evening and bring his sugar logs to his primary care doctor's appointment. I spoke with Dr. Gaona, patient's PMD, in regards to the patient upon discharge, advises him to call his office on Monday for follow-up. He is currently away, but Dr. Garcia is covering his office. Patient has a previously scheduled appointment for Mar 10 2017, advised to move up his appointment given his recent hospitalization. New Prescriptions: 1) Lantus 12 units subHS (1 vial) no refill 2) Novolog 5 units TID AC (1 vial) no refill 3) Glucometer (One Touch Brand) 4) Test strips, lancets, and syringes-->one month supply provided This is a summary of patient's hospitalization. Please see EMR for further details. - Date & Time of H&P Date of H&P: 01/28/17 Time of H&P: 19:55 Discharge Exam - Head Exam Head Exam: ATRAUMATIC, NORMAL INSPECTION - Eye Exam Eye Exam: EOMI - ENT Exam ENT Exam: Mucous Membranes Moist - Respiratory Exam Respiratory Exam: Clear to PA & Lateral, NORMAL BREATHING PATTERN. absent: Rales, Rhonchi - Cardiovascular Exam Cardiovascular Exam: REGULAR RHYTHM, +S1, +S2 - GI/Abdominal Exam GI & Abdominal Exam: Normal Bowel Sounds, Soft. absent: Distended, Firm, Guarding, Rebound, Rigid, Tenderness - Extremities Exam Extremities exam: pedal pulses present Additional comments: no edema, no cyanosis, no clubbing b/l - Back Exam Back exam: absent: CVA tenderness (L), CVA tenderness (R), rash noted - Neurological Exam Neurological exam: Alert, Oriented x3 Additional comments: Patient identify Zuly is the President, he knows he is at the hospital, knows his 's name is Amanda - Psychiatric Exam Psychiatric exam: Normal Affect, Normal Mood - Skin Skin Exam: Dry, Intact, Normal Color, Warm Discharge Plan - Discharge Medications Prescriptions: Insulin Aspart, Recombinant [Novolog] 5 unit SQ AC #1 vial Insulin Glargine, Recombina [Lantus] 12 unit SQ HS #1 vial - Follow Up Plan Condition: STABLE Disposition: HOME/ ROUTINE Instructions: Diabetic Ketoacidosis (DC) Additional Instructions: Follow up visit with PMD Referrals: Javier Gaona MD [Staff Provider] -
[2017-01-28] MEDS ORDERED: Pantoprazole 40 mg EC Tab PO SCH (10:00)
[2017-01-28 11:02] VITALS: TEMP 98.4
[2017-01-28] MEDS ORDERED: (Novolog) Insulin Aspart, Recombinant 100 u/ml 10 ml vial SC SCH (11:30)
--- NOTE | 2017-01-28 12:11 | RAD ---
PROCEDURE: CHEST RADIOGRAPH, 1 VIEW HISTORY: DKA COMPARISON: Comparison chest 12/30/14. FINDINGS: Interval removal ETT. LUNGS: No acute consolidation. PLEURA: No pneumothorax or pleural fluid seen. CARDIOVASCULAR: Normal. OSSEOUS STRUCTURES: No significant abnormalities. VISUALIZED UPPER ABDOMEN: Normal. OTHER FINDINGS: None. IMPRESSION: No active disease.
[2017-01-28 13:15] VITALS: RESP 14
[2017-01-28 13:18] VITALS: BP 112/60; PULSE 66; O2SAT 97
--- NOTE | 2017-01-30 09:02 | CARD ---
APPROVED REPORT EKG Measurement Heart [id number] <Conclusion> Normal sinus rhythm Normal ECG
== END 2017-01-28 13:00 | disposition home or self-care (01) | DRG 294 ==
LOC: C.ER 15:38 → C.9E 18:28 → C.9I 19:04
PROVIDERS: ADMIT Internal Medicine; ATTEND Internal Medicine
DX: E11.10 Type 2 diabetes mellitus with ketoacidosis without coma (principal); I11.0 Hypertensive heart disease with heart failure; F03.90 Unspecified dementia, unspecified severity, without behavioral disturbance, psychotic disturbance, mood disturbance, and anxiety; I50.9 Heart failure, unspecified; F20.9 Schizophrenia, unspecified; F31.9 Bipolar disorder, unspecified; I25.10 Atherosclerotic heart disease of native coronary artery without angina pectoris; Z79.4 Long term (current) use of insulin; Z87.891 Personal history of nicotine dependence; Z91.19 Patient's noncompliance with other medical treatment and regimen

== ENCOUNTER 2017-02-24 00:34 | Inpatient (IN) | payer MEDICAID, OTHER ==
[2017-02-24 00:50] VITALS: BMI 21.9
[2017-02-24 01:59] LABS: BASO # 0.1 K/uL (0.0-0.2); BASO % 0.5 % (0.0-2.0); EOS # 0.2 K/uL (0.0-0.7); EOS % 1.2 % (0.0-4.0); HEMOGLOBIN 11.1 g/dL (12.0-18.0); LYMPH # 5.3 K/uL (1.0-4.3); LYMPH % 38.4 % (20.0-40.0); MEAN CORPUSCULAR HEMOGLOBIN 33.1 pg (27.0-31.0); MEAN PLATELET VOLUME 7.7 fL (7.2-11.7); MONO # 0.8 K/uL (0.0-0.8); MONO % 6.1 % (0.0-10.0); NEUT # 7.4 K/uL (1.8-7.0); NEUT % 53.8 % (50.0-75.0); RBC 3.36 Mil/uL (4.40-5.90); RED CELL DISTRIBUTION WIDTH 13.4 % (11.5-14.5); WHITE BLOOD COUNT 13.8 K/uL (4.8-10.8)
[2017-02-24 02:01] LABS: BARBITURATES, UR NEGATIVE (NEGATIVE); OPIATES, UR NEGATIVE (NEGATIVE); PHENCYCLIDINE, UR NEGATIVE (NEGATIVE)
[2017-02-24 02:08] LABS: BENZODIAZEPINES, UR POSITIVE (NEGATIVE)
[2017-02-24 02:12] LABS: ALB/GLOB RATIO 1.7 (1.0-2.1); ALBUMIN 4.5 g/dL (3.5-5.0); ALT/SGPT 53 U/L (21-72); AST/SGOT 71 U/L (17-59); BLOOD UREA NITROGEN 63 mg/dL (9-20); CALCIUM 9.1 mg/dl (8.6-10.4); GFR AFRICAN-AMERICAN 36; GFR NON-AFRICAN AMERICAN 29
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
[2017-02-24] MEDS ORDERED: Sodium Chloride 0.9% 1,000 ML IV ONE (02:21)
[2017-02-24] MEDS ORDERED: Midazolam 2 MG/2 ML VIAL IM STA (02:36)
[2017-02-24] MEDS ORDERED: DiphenhydrAMINE 50 mg/ml Inj IM STA (02:36)
[2017-02-24 02:39] LABS: URINE BILIRUBIN NEGATIVE (NEGATIVE); URINE BLOOD NEGATIVE (NEGATIVE); URINE CLARITY Clear (Clear); URINE COLOR Yellow (YELLOW); URINE GLUCOSE (UA) 3+ mg/dL (Normal); URINE LEUKOCYTE ESTERASE NEG Leu/uL (Negative); URINE NITRATE NEGATIVE (NEGATIVE); URINE PROTEIN 1+ mg/dL (NEGATIVE); URINE UROBILINOGEN NORMAL mg/dL (0.2-1.0)
[2017-02-24] MEDS ORDERED: DiphenhydrAMINE 50 mg/ml Inj ONE ×2 (02:39→02:40)
[2017-02-24] MEDS ORDERED: Midazolam 2 MG/2 ML VIAL ONE (02:41)
[2017-02-24] MEDS ORDERED: Sodium Chloride 0.9% 1,000 ML ONE (03:05)
[2017-02-24] MEDS ORDERED: (Novolin R) Insulin Human Regular 100 units/ml vial ONE ×2 (05:06→12:42)
[2017-02-24] MEDS ORDERED: (Novolin R) Insulin Human Regular 100 units/ml vial IV STA (05:07)
--- NOTE | 2017-02-24 09:11 | CT ---
PROCEDURE: CT HEAD WITHOUT CONTRAST. HISTORY: Altered mental status COMPARISON: None available. TECHNIQUE: Axial computed tomography images were obtained through the head/brain without intravenous contrast. Radiation dose: Total exam DLP = 1001.75 MGy-cm. This CT exam was performed using one or more of the following dose reduction techniques: Automated exposure control, adjustment of the mA and/or kV according to patient size, and/or use of iterative reconstruction technique. FINDINGS: HEMORRHAGE: No intracranial hemorrhage. BRAIN: Martinez-white matter differentiation is preserved. There is no mass, mass effect or abnormal extra-axial fluid collection. There are mild chronic microangiopathic changes. There is a small old lacunar infarction in the left thalamus. There are probable small lacunar infarctions in the right cerebellar hemisphere. VENTRICLES: There is mild global parenchymal volume loss and proportionate enlargement of the ventricles and cortical sulci. CALVARIUM: There is no calvarial fracture or extracranial soft tissue swelling. PARANASAL SINUSES: Predominantly clear. MASTOID AIR CELLS: Predominantly clear. OTHER FINDINGS: None. IMPRESSION: No acute intracranial abnormality. Mild chronic microangiopathic changes and mild global parenchymal volume loss, slightly advanced for the patient's age. Small old infarction in the left thalamus.
[2017-02-24] MEDS ORDERED: (Novolin R) Insulin Human Regular 100 units/ml vial SC STA (12:38)
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
[2017-02-24 14:37] LABS: ALB/GLOB RATIO 1.1 (1.0-2.1); ALBUMIN 3.5 g/dL (3.5-5.0); CALCIUM 8.4 mg/dl (8.6-10.4)
[2017-02-24] MEDS ORDERED: Divalproex 500 mg DR Tab PO SCH (18:00)
[2017-02-24] MEDS ORDERED: Divalproex 250 mg DR Tab PO SCH (18:00)
[2017-02-24] MEDS ORDERED: (Novolin N) Insulin Human Isophane (NPH) 100 u/ml 10 ml vial SC STA (20:34)
--- NOTE | 2017-02-24 21:59 | CP.PCM.HP ---
<Neno Smith - Last Filed: 02/25/17 03:24> History of Present Illness - History of Present Illness History of Present Illness: Medicine H&P for Dr. Botello This is a 56 year old male with PMHx bipolar, schizophrenia, dementia, CAD, CHF , diabetes, DKA, HTN, anemia who presents to the hospital brought in for psychotic behavior. Patient's called the police because the patient began knocking on the doors of their neighbors and was behaving bizarrely. Patient himself was very incoherent and unable to provide much insight as to why he was brought in. At this time, patient seems to deny suicidal or homicidal ideation but patient was apparently very agitated prompting restraints earlier during the day. By the time that the patient was seen in the ED, he had been heavily medicated including haldol, depakote, and versed. He was not on restraints by the time he was seen in the evening. Patient denies any acute complaints at the moment. Per Review of the EMR: PMHx: dementia, CAD, CHF, diabetes, DKA, HTN, schizophrenia, anemia. PSH: unknown Allergies: NKDA Medications: As per med rec, questionable compliance Family History: Unable to obtain Social History: Lives with /family, no tobacco or EtOH reported. Surrogate: , info on chart Present on Admission - Present on Admission Any Indicators Present on Admission: Yes History of Uncontrolled Diabetes: Yes Review of Systems - Constitutional Constitutional: absent: Chills, Fever - EENT Eyes: absent: Change in Vision Ears: absent: Decreased Hearing Nose/Mouth/Throat: absent: Nasal Congestion - Cardiovascular Cardiovascular: absent: Chest Pain - Respiratory Respiratory: absent: Dyspnea - Gastrointestinal Gastrointestinal: absent: Abdominal Pain, Constipation, Diarrhea, Nausea, Vomiting - Genitourinary Genitourinary: absent: Dysuria, Hematuria - Musculoskeletal Musculoskeletal: absent: Muscle Weakness - Integumentary Integumentary: absent: Rash - Neurological Neurological: absent: Weakness - Psychiatric Psychiatric: Confusion. absent: Homicidal Ideation, Suicidal Ideation - Endocrine Endocrine: absent: Fatigue Past Patient History - Infectious Disease Hx of Infectious Diseases: None - Tetanus Immunizations Tetanus Immunization: Unknown - Past Medical History & Family History Past Medical History?: Yes - Past Social History Smoking Status: Light Smoker < 10 Cigarettes Daily - CARDIAC Hx Cardiac Disorders: No Hx Hypertension: Yes - PULMONARY Hx Tuberculosis: No - NEUROLOGICAL HX Cerebrovascular Accident: No Hx Seizures: No - HEENT Hx HEENT Problems: No - RENAL Hx Chronic Kidney Disease: No Hx Kidney Stones: No - ENDOCRINE/METABOLIC Hx Endocrine Disorders: Yes Hx Diabetes Mellitus Type 1: Yes - HEMATOLOGICAL/ONCOLOGICAL Hx Cancer: No Hx Human Immunodeficiency Virus (HIV): No - INTEGUMENTARY Hx Dermatological Problems: No - MUSCULOSKELETAL/RHEUMATOLOGICAL Hx Fractures: Yes (Skull) - GASTROINTESTINAL Hx Gastrointestinal Disorders: Yes HX Swallowing Problems: Yes ( has to blend food) - GENITOURINARY/GYNECOLOGICAL Hx Sexually Transmitted Disorders: No - PSYCHIATRIC Hx Anxiety: Yes Hx Bipolar Disorder: Yes Hx Depression: Yes Hx Schizophrenia: Yes Hx Substance Use: No - SURGICAL HISTORY Hx Surgeries: Yes Other/Comment: metal plates in head (skull fx) - ANESTHESIA Hx Anesthesia: Yes Hx Anesthesia Reactions: No Hx Malignant Hyperthermia: No Meds Allergies/Adverse Reactions: Allergies Allergy/AdvReac Type Severity Reaction Status Date / Time No Known Allergies Allergy Verified 02/24/17 00:50 Physical Exam - Constitutional Appears: No Acute Distress, Confused - Head Exam Head Exam: ATRAUMATIC, NORMOCEPHALIC - Eye Exam Eye Exam: EOMI, PERRL - ENT Exam ENT Exam: Mucous Membranes Moist - Respiratory Exam Respiratory Exam: Clear to Auscultation Bilateral. absent: Rales, Rhonchi, Wheezes - Cardiovascular Exam Cardiovascular Exam: REGULAR RHYTHM, +S1, +S2 - GI/Abdominal Exam GI & Abdominal Exam: Normal Bowel Sounds, Soft. absent: Tenderness - Extremities Exam Extremities exam: Positive for: pedal pulses present. Negative for: tenderness - Neurological Exam Neurological exam: Alert, Oriented x3 - Psychiatric Exam Psychiatric exam: Manic - Skin Skin Exam: Dry, Warm Results - Vital Signs Recent Vital Signs: Last Vital Signs Temp 98.7 F 02/24/17 12:30 Pulse 80 02/24/17 19:30 Resp 14 02/24/17 19:30 BP 164/75 H 02/24/17 19:30 Pulse Ox 97 02/24/17 19:30 - Labs Result Diagrams: 02/24/17 01:53 02/24/17 23:00 Labs: Laboratory Results - last 24 hr 02/24/17 02/24/17 02/24/17 01:39 01:53 01:53 WBC 13.8 H D RBC 3.36 L Hgb 11.1 L D Hct 30.9 L MCV 92.0 D MCH 33.1 H MCHC 36.0 RDW 13.4 Plt Count 328 D MPV 7.7 Neut % (Auto) 53.8 Lymph % (Auto) 38.4 [place] % (Auto) 6.1 Eos % (Auto) 1.2 Baso % (Auto) 0.5 Neut # 7.4 H Lymph # 5.3 H [place] # 0.8 Eos # 0.2 Baso # 0.1 Sodium 128 L Potassium 5.6 H Chloride 91 L Carbon Dioxide 22 Anion Gap 21 H BUN 63 H Creatinine 2.3 H Est GFR ( Amer) 36 Est GFR (Non-Af Amer) 29 POC Glucose (mg/dL) Random Glucose 497 H* D Calcium 9.1 Total Bilirubin 0.3 AST 71 H D ALT 53 Alkaline Phosphatase 106 Total Protein 7.2 Albumin 4.5 Globulin 2.6 Albumin/Globulin Ratio 1.7 Urine Color Urine Clarity Urine pH Ur Specific [place] Urine Protein Urine Glucose (UA) Urine Ketones Urine Blood Urine Nitrate Urine Bilirubin Urine Urobilinogen Ur Leukocyte Esterase Urine WBC (Auto) Urine RBC (Auto) Hyaline Casts Urine Opiates Screen Negative Urine Methadone Screen Negative Ur Barbiturates Screen Negative Ur Phencyclidine Scrn Negative Ur Amphetamines Screen Negative U Benzodiazepines Scrn Positive U Oth Cocaine Metabols Negative U Cannabinoids Screen Negative Alcohol, Quantitative < 10 02/24/17 02/24/17 02/24/17 01:53 04:09 05:00 WBC RBC Hgb Hct MCV MCH MCHC RDW Plt Count MPV Neut % (Auto) Lymph % (Auto) [place] % (Auto) Eos % (Auto) Baso % (Auto) Neut # Lymph # [place] # Eos # Baso # Sodium Potassium Chloride Carbon Dioxide Anion Gap BUN Creatinine Est GFR ( Amer) Est GFR (Non-Af Amer) POC Glucose (mg/dL) 471 H* 440 H* Random Glucose Calcium Total Bilirubin AST ALT Alkaline Phosphatase Total Protein Albumin Globulin Albumin/Globulin Ratio Urine Color Yellow Urine Clarity Clear Urine pH 5.0 Ur Specific [place] 1.013 Urine Protein 1+ H Urine Glucose (UA) 3+ H Urine Ketones Negative Urine Blood Negative Urine Nitrate Negative Urine Bilirubin Negative Urine Urobilinogen Normal Ur Leukocyte Esterase Neg Urine WBC (Auto) 1 Urine RBC (Auto) < 1 Hyaline Casts 11-20 H Urine Opiates Screen Urine Methadone Screen Ur Barbiturates Screen Ur Phencyclidine Scrn Ur Amphetamines Screen U Benzodiazepines Scrn U Oth Cocaine Metabols U Cannabinoids Screen Alcohol, Quantitative 02/24/17 02/24/17 02/24/17 05:35 08:00 12:32 WBC RBC Hgb Hct MCV MCH MCHC RDW Plt Count MPV Neut % (Auto) Lymph % (Auto) [place] % (Auto) Eos % (Auto) Baso % (Auto) Neut # Lymph # [place] # Eos # Baso # Sodium Potassium Chloride Carbon Dioxide Anion Gap BUN Creatinine Est GFR ( Amer) Est GFR (Non-Af Amer) POC Glucose (mg/dL) 333 H 190 H > 500 H* Random Glucose Calcium Total Bilirubin AST ALT Alkaline Phosphatase Total Protein Albumin Globulin Albumin/Globulin Ratio Urine Color Urine Clarity Urine pH Ur Specific [place] Urine Protein Urine Glucose (UA) Urine Ketones Urine Blood Urine Nitrate Urine Bilirubin Urine Urobilinogen Ur Leukocyte Esterase Urine WBC (Auto) Urine RBC (Auto) Hyaline Casts Urine Opiates Screen Urine Methadone Screen Ur Barbiturates Screen Ur Phencyclidine Scrn Ur Amphetamines Screen U Benzodiazepines Scrn U Oth Cocaine Metabols U Cannabinoids Screen Alcohol, Quantitative 02/24/17 02/24/17 02/24/17 14:13 14:22 16:45 WBC RBC Hgb Hct MCV MCH MCHC RDW Plt Count MPV Neut % (Auto) Lymph % (Auto) [place] % (Auto) Eos % (Auto) Baso % (Auto) Neut # Lymph # [place] # Eos # Baso # Sodium 128 L Potassium 5.8 H Chloride 96 L Carbon Dioxide 24 Anion Gap 14 BUN 55 H Creatinine 1.7 H Est GFR ( Amer) 51 Est GFR (Non-Af Amer) 42 POC Glucose (mg/dL) 316 H 309 H Random Glucose 346 H Calcium 8.4 L Total Bilirubin 0.2 AST 45 ALT 49 Alkaline Phosphatase 75 Total Protein 6.5 Albumin 3.5 D Globulin 3.1 Albumin/Globulin Ratio 1.1 Urine Color Urine Clarity Urine pH Ur Specific [place] Urine Protein Urine Glucose (UA) Urine Ketones Urine Blood Urine Nitrate Urine Bilirubin Urine Urobilinogen Ur Leukocyte Esterase Urine WBC (Auto) Urine RBC (Auto) Hyaline Casts Urine Opiates Screen Urine Methadone Screen Ur Barbiturates Screen Ur Phencyclidine Scrn Ur Amphetamines Screen U Benzodiazepines Scrn U Oth Cocaine Metabols U Cannabinoids Screen Alcohol, Quantitative 02/24/17 20:10 WBC RBC Hgb Hct MCV MCH MCHC RDW Plt Count MPV Neut % (Auto) Lymph % (Auto) [place] % (Auto) Eos % (Auto) Baso % (Auto) Neut # Lymph # [place] # Eos # Baso # Sodium Potassium Chloride Carbon Dioxide Anion Gap BUN Creatinine Est GFR ( Amer) Est GFR (Non-Af Amer) POC Glucose (mg/dL) 495 H* Random Glucose Calcium Total Bilirubin AST ALT Alkaline Phosphatase Total Protein Albumin Globulin Albumin/Globulin Ratio Urine Color Urine Clarity Urine pH Ur Specific [place] Urine Protein Urine Glucose (UA) Urine Ketones Urine Blood Urine Nitrate Urine Bilirubin Urine Urobilinogen Ur Leukocyte Esterase Urine WBC (Auto) Urine RBC (Auto) Hyaline Casts Urine Opiates Screen Urine Methadone Screen Ur Barbiturates Screen Ur Phencyclidine Scrn Ur Amphetamines Screen U Benzodiazepines Scrn U Oth Cocaine Metabols U Cannabinoids Screen Alcohol, Quantitative Assessment & Plan - Assessment and Plan (Free Text) Plan: Schizophrenia and Bipolar Psychiatry consulted, Dr. Burdick, help appreciated Dr. Magana psychiatrist on duty has evaluated the patient and recommended [facility] evaluation for assisted care Per Dr. Magana, Abilify 2 mg PO daily and Depakote 250 mg PO BID, Haldol 5 mg IM Q1H prn agitation History of Diabetes Regular ISS high dose NS @100cc/hr No anion gap currently Hyperkalemia and hyperglycemia remains on repeat BMP despite receiving 10 units of IV novolin, 20 units of SC novolin in the ED and 10 units of SC novolin given on the floors EKG showed NSR without any peaked T waves Case DW Dr. Rosmery Smith PGY-1 <Florian Botello - Last Filed: 02/25/17 06:34> Results - Vital Signs Recent Vital Signs: Last Vital Signs Temp 98.5 F 02/24/17 23:26 Pulse 90 02/24/17 23:26 Resp 20 02/24/17 23:26 BP 120/67 02/24/17 23:26 Pulse Ox 100 02/24/17 23:26 - Labs Result Diagrams: 02/24/17 01:53 02/24/17 23:00 Labs: Laboratory Results - last 24 hr 02/24/17 02/24/17 02/24/17 08:00 12:32 14:13 Sodium 128 L Potassium 5.8 H Chloride 96 L Carbon Dioxide 24 Anion Gap 14 BUN 55 H Creatinine 1.7 H Est GFR ( Amer) 51 Est GFR (Non-Af Amer) 42 POC Glucose (mg/dL) 190 H > 500 H* Random Glucose 346 H Calcium 8.4 L Total Bilirubin 0.2 AST 45 ALT 49 Alkaline Phosphatase 75 Total Protein 6.5 Albumin 3.5 D Globulin 3.1 Albumin/Globulin Ratio 1.1 02/24/17 02/24/17 02/24/17 14:22 16:45 20:10 Sodium Potassium Chloride Carbon Dioxide Anion Gap BUN Creatinine Est GFR ( Amer) Est GFR (Non-Af Amer) POC Glucose (mg/dL) 316 H 309 H 495 H* Random Glucose Calcium Total Bilirubin AST ALT Alkaline Phosphatase Total Protein Albumin Globulin Albumin/Globulin Ratio 02/24/17 02/24/17 02/24/17 21:59 22:02 23:00 Sodium 124 L Potassium 5.9 H Chloride 95 L Carbon Dioxide 20 L Anion Gap 15 BUN 56 H Creatinine 1.5 Est GFR ( Amer) 58 Est GFR (Non-Af Amer) 48 POC Glucose (mg/dL) 457 H* 435 H* Random Glucose 417 H* D Calcium 8.4 L Total Bilirubin AST ALT Alkaline Phosphatase Total Protein Albumin Globulin Albumin/Globulin Ratio 02/25/17 01:58 Sodium Potassium Chloride Carbon Dioxide Anion Gap BUN Creatinine Est GFR ( Amer) Est GFR (Non-Af Amer) POC Glucose (mg/dL) 140 H Random Glucose Calcium Total Bilirubin AST ALT Alkaline Phosphatase Total Protein Albumin Globulin Albumin/Globulin Ratio Assessment & Plan - Date & Time Date: 02/25/17 (I have seen and examined the patient. I agree with the findings and plan of care as documented by Dr. Smith. Patient with uncontrolled diabetes. NISS and accuchecks for now. Monitor blood sugars and add long acting insulin. History of schizophrenia and bipolar. Possible dementia. Consult to psych. 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 Monitor for acute changes.) Time: 06:33 Attending/Attestation - Attestation I have personally seen and examined this patient.: Yes I have fully participated in the care of the patient.: Yes I have reviewed all pertinent clinical information: Yes
[2017-02-24] MEDS: Sodium Chloride 0.9% 1,000 ML IV SCH (22:13)
[2017-02-24] MEDS: (Novolin R) Insulin Human Regular 100 units/ml vial SC SCH (22:18)
[2017-02-24] MEDS ORDERED: (Novolin R) Insulin Human Regular 100 units/ml vial SC ONE (23:05)
[2017-02-24 23:17] LABS: CALCIUM 8.4 mg/dl (8.6-10.4)
[2017-02-24] MEDS ORDERED: Lidocaine 5% Patch TD SCH (23:23)
[2017-02-24 23:27] VITALS: RESP 20
[2017-02-25] MEDS ORDERED: Dextrose 50% SYRINGE Inj (50 ml) IV PRN (03:24)
[2017-02-25] MEDS ORDERED: Glucagon Recombinant 1 mg Inj IM PRN (03:24)
[2017-02-25 07:42] LABS: BASO % 0.6 % (0.0-2.0); EOS # 0.2 K/uL (0.0-0.7); EOS % 2.2 % (0.0-4.0); HEMOGLOBIN 9.7 g/dL (12.0-18.0); LYMPH # 3.9 K/uL (1.0-4.3); MEAN CELL VOLUME 90.4 fL (80.0-94.0); MEAN CORPUSCULAR HEMOGLOBIN 32.1 pg (27.0-31.0); MEAN CORPUSCULAR HGB CONC 35.6 g/dL (33.0-37.0); MEAN PLATELET VOLUME 7.8 fL (7.2-11.7); MONO # 0.6 K/uL (0.0-0.8); MONO % 7.6 % (0.0-10.0); NEUT # 3.2 K/uL (1.8-7.0); NEUT % 40.6 % (50.0-75.0); RBC 3.01 Mil/uL (4.40-5.90)
[2017-02-25] MEDS: (Novolin R) Insulin Human Regular 100 units/ml vial SC SCH ×2 (08:14→12:07)
[2017-02-25 08:34] LABS: BLOOD UREA NITROGEN 49 mg/dL (9-20); CALCIUM 8.7 mg/dl (8.6-10.4); GFR AFRICAN-AMERICAN > 60; GFR NON-AFRICAN AMERICAN 57
[2017-02-25] MEDS ORDERED: Sod Polystyrene Sulf 15 gm/60 ml Susp PO ONE (09:54)
[2017-02-25] MEDS: Enoxaparin 40 mg Syringe SC SCH (10:06)
[2017-02-25] MEDS: Sodium Chloride 0.9% 1,000 ML IV SCH ×2 (10:08→17:45)
[2017-02-25] MEDS: Divalproex 500 mg DR Tab PO SCH ×2 (10:20→17:55)
[2017-02-25] MEDS ORDERED: (Novolog) Insulin Aspart, Recombinant 100 u/ml 10 ml vial SC SCH (11:30)
[2017-02-25] MEDS: Metoprolol Succinate 50 mg XL Tab PO SCH (12:15)
--- NOTE | 2017-02-25 13:39 | CP.PCM.PN ---
<Radha Wells - Last Filed: 02/25/17 17:27> Subjective - Date & Time of Evaluation Date of Evaluation: 02/25/17 Time of Evaluation: 08:30 - Subjective Subjective: Medicine Progress Note: Hospitalist Service Patient seen and examined at bedside. Per nursing no acute events overnight. Patient is orientated to person and place. When asked what the date was, patient became frustrated and did not want to answer the question. He states that he wants to go to sleep and not be bothered. Patient denies headaches, dizziness, cp, palpitations, sob, abdominal pain, urinary symptoms, changes in bowel habits. Objective - Vital Signs/Intake and Output Vital Signs (last 24 hours): Temp Pulse Resp BP Pulse Ox 97.7 F 87 20 140/72 98 02/25/17 07:57 02/25/17 07:57 02/25/17 07:57 02/25/17 07:57 02/25/17 07:57 Intake and Output: 02/25/17 02/25/17 06:59 18:59 Intake Total 1040 Balance 1040 - Medications Medications: Current Medications Aripiprazole (Abilify) 5 mg PO DAILY [facility] Last Admin: 02/25/17 10:20 Dose: 5 mg Aspirin (Ecotrin) 81 mg PO DAILY [facility] Last Admin: 02/25/17 12:04 Dose: 81 mg Clopidogrel Bisulfate (Plavix) 75 mg PO DAILY [facility] Last Admin: 02/25/17 12:14 Dose: 75 mg Dextrose (Dextrose 50% Inj) 0 ml IV STAT PRN; Protocol PRN Reason: Hypoglycemia Protocol Dextrose (Glutose 15) 0 gm PO ONCE PRN; Protocol PRN Reason: Hypoglycemia Protocol Divalproex Sodium (Depakote Dr) 500 mg PO BID [facility] Last Admin: 02/25/17 10:20 Dose: 500 mg Enoxaparin Sodium (Lovenox) 40 mg SC DAILY [facility] Last Admin: 02/25/17 10:06 Dose: 40 mg Glucagon (Glucagen Diagnostic Kit) 0 mg IM STAT PRN; Protocol PRN Reason: Hypoglycemia Protocol Haloperidol (Haldol) 5 mg PO Q1H PRN PRN Reason: agitation max 4x/24h Haloperidol Lactate (Haldol) 5 mg IM Q1H PRN PRN Reason: aggression max 4x/24h Sodium Chloride (Sodium Chloride 0.9%) 1,000 mls @ 100 mls/hr IV .Q10H [facility] Last Admin: 02/25/17 10:08 Dose: 100 mls/hr Dextrose (Dextrose 5% In Water 1000 Ml) 1,000 mls @ 0 mls/hr IV .Q0M PRN; Protocol; Per Protocol PRN Reason: Hypoglycemia Protocol Insulin Aspart (Novolog) 10 unit SC AC [facility] Last Admin: 02/25/17 12:06 Dose: 10 unit Insulin Glargine (Lantus) 20 unit SC HS [facility] Insulin Human Regular (Novolin R) 0 unit SC ACHS [facility] PRN Reason: Protocol Last Admin: 02/25/17 12:07 Dose: 12 unit Lorazepam (Ativan) 1 mg PO Q4H PRN PRN Reason: severe agitation Metoprolol Succinate (Toprol Xl) 50 mg PO DAILY [facility] Last Admin: 02/25/17 12:15 Dose: 50 mg Pneumococcal Polyvalent Vaccine (Pneumovax 23 Vaccine) 0.5 ml IM .ONCE ONE Stop: 02/26/17 10:01 Rosuvastatin Calcium (Crestor) 5 mg PO [facility] - Labs Labs: 02/25/17 07:15 02/25/17 07:15 - Constitutional Appears: Well, No Acute Distress, Unkempt, Older Than Stated Age, Agitated, Confused - Head Exam Head Exam: ATRAUMATIC, NORMAL INSPECTION - Eye Exam Eye Exam: EOMI, Normal appearance - ENT Exam ENT Exam: Mucous Membranes Moist - Neck Exam Neck Exam: Full ROM - Respiratory Exam Respiratory Exam: Clear to Ausculation Bilateral, NORMAL BREATHING PATTERN. absent: Rales, Rhonchi, Wheezes - Cardiovascular Exam Cardiovascular Exam: REGULAR RHYTHM, +S1, +S2 - GI/Abdominal Exam GI & Abdominal Exam: Soft. absent: Guarding, Rigid, Tenderness - Extremities Exam Extremities Exam: Normal Inspection. absent: Calf Tenderness - Neurological Exam Neurological Exam: Alert, Awake. absent: Oriented x3 - Psychiatric Exam Psychiatric exam: Agitated, Flat Affect - Skin Skin Exam: Dry, Normal Color, Warm Assessment and Plan - Assessment and Plan (Free Text) Assessment: 1. Schizophrenia and Bipolar disorder * Psychiatry consulted, Dr. 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 History of Uncontrolled Diabetes Mellitus, non-compliant * Stable, afebrile * Accuchecks 156-500 * HgA1C 02/2017 - 13.0 * Endocrine consult placed, Dr Hernandez, help appreciated * Novolog 12 units SC AC * Lantus 30 units SC QHS * High dose ISS, accuchecks ACHS * Crestor 5mg PO daily * Will consider adding lisinopril for renal protection, however will hold in setting of hyperkalemia * Hypoglycemic protocol 3. Hyperkalemia * Potassium was 5.8 on admission, patient was given insulin * Today potassium is 5.5, Kayexylate ordered * Will continue to monitor 4. Normacytic Anemia * Chronic in nature, Hgb at baseline * No active bleeding at this time * Will continue to monitor 5. History of Coronary Artery Disease * Continue ASA and plavix daily 6. History of Hypertension * Continue Toprol XL 50mg PO daily 7. History of Hyperlipidemia * Continue Crestor 5mg daily * Lipid panel from 02/2017 * Triglycerides - 225 * Cholesterol - 209 * LDL - 101 * HDL - 56 Prophylactic measures * Lovenox 40mg SC daily <Lashell Pappas V - Last Filed: 02/26/17 15:59> Objective - Vital Signs/Intake and Output Vital Signs (last 24 hours): Temp Pulse Resp BP Pulse Ox 98.4 F 86 20 155/84 H 100 02/26/17 15:34 02/26/17 15:34 02/26/17 15:34 02/26/17 15:34 02/26/17 15:34 Intake and Output: 02/26/17 02/26/17 06:59 18:59 Intake Total 360 Balance 360 - Medications Medications: Current Medications Aripiprazole (Abilify) 5 mg PO DAILY [facility] Last Admin: 02/26/17 10:14 Dose: 5 mg Aspirin (Ecotrin) 81 mg PO DAILY [facility] Last Admin: 02/26/17 10:11 Dose: 81 mg Clopidogrel Bisulfate (Plavix) 75 mg PO DAILY [facility] Last Admin: 02/26/17 10:11 Dose: 75 mg Dextrose (Dextrose 50% Inj) 0 ml IV STAT PRN; Protocol PRN Reason: Hypoglycemia Protocol Dextrose (Glutose 15) 0 gm PO ONCE PRN; Protocol PRN Reason: Hypoglycemia Protocol Divalproex Sodium (Depakote ) 500 mg PO BID [facility] Last Admin: 02/26/17 10:14 Dose: 500 mg Enoxaparin Sodium (Lovenox) 40 mg SC DAILY [facility] Last Admin: 02/26/17 10:11 Dose: 40 mg Glucagon (Glucagen Diagnostic Kit) 0 mg IM STAT PRN; Protocol PRN Reason: Hypoglycemia Protocol Haloperidol (Haldol) 5 mg PO Q1H PRN PRN Reason: agitation max 4x/24h Haloperidol Lactate (Haldol) 5 mg IM Q1H PRN PRN Reason: aggression max 4x/24h Dextrose (Dextrose 5% In Water 1000 Ml) 1,000 mls @ 0 mls/hr IV .Q0M PRN; Protocol; Per Protocol PRN Reason: Hypoglycemia Protocol Sodium Chloride (Sodium Chloride 0.9%) 1,000 mls @ 150 mls/hr IV .Q6H40M [facility] Last Admin: 02/26/17 14:21 Dose: Not Given Insulin Aspart (Novolog) 0 unit SC ACHS [facility] PRN Reason: Protocol Last Admin: 02/26/17 12:31 Dose: 4 unit Insulin Aspart (Novolog) 16 unit SC AC [facility] Insulin Glargine (Lantus) 40 unit SC HS [facility] Lorazepam (Ativan) 1 mg PO Q4H PRN PRN Reason: severe agitation Metoprolol Succinate (Toprol Xl) 50 mg PO DAILY [facility] Last Admin: 02/26/17 10:11 Dose: 50 mg Rosuvastatin Calcium (Crestor) 5 mg PO HS [facility] Last Admin: 02/25/17 21:22 Dose: 5 mg - Labs Labs: 02/26/17 07:54 02/26/17 07:54 Attending/Attestation - Attestation I have personally seen and examined this patient.: Yes I have fully participated in the care of the patient.: Yes I have reviewed all pertinent clinical information, including history, physical exam and plan: Yes Notes (Text): This this is a late computer entry for 02/25/2017. Patient is well known to the hospitalist service. Patient with a known history of noncompliance for his diabetes. Patient also has a history of coronary artery disease hypertension and hyperlipidemia. As per review patient was brought in by for further psychiatric evaluation. Per crisis notes, patient is pending acceptance [place] [facility] [place] pending medical clearance. Patient sugars are uncontrolled. Endocrinology consulted. Discussed case with psychiatrist chaperon. Please note patient has forgotten his dentures at home and will need to change diet to soft. Assessment/Plan 1. Schizophrenia and Bipolar disorder * Psychiatry consulted, Dr. 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 History of Uncontrolled Diabetes Mellitus, non-compliant * Stable, afebrile * Accuchecks 156-500 * HgA1C 02/2017 - 13.0 * Endocrine consult placed, Dr Hernandez, help appreciated * Novolog 12 units SC AC * Lantus 30 units SC QHS * High dose ISS, accuchecks ACHS * Crestor 5mg PO daily * Will hold adding lisinopril for renal protection given hyperkalemia, however will hold in setting of hyperkalemia * Hypoglycemic protocol 3. Hyperkalemia * Potassium was 5.8 on admission, patient was given insulin * Today potassium is 5.5, Kayexylate ordered * Will continue to monitor 4. Normocytic Anemia * Chronic in nature, Hgb at baseline * No active bleeding at this time * Will continue to monitor 5. History of Coronary Artery Disease * Continue ASA 81mg PO daily and plavix 75mg PO daily * Continue Crestor 5mg daily 6. History of Hypertension * Continue Toprol XL 50mg PO daily 7. History of Hyperlipidemia * Continue Crestor 5mg daily * Lipid panel from 02/2017 * Triglycerides - 225 * Cholesterol - 209 * LDL - 101 * HDL - 56 8) Prophylactic measures * Lovenox 40mg SC daily Disposition: Patient is pending medical clearance for possible [facility] [place] for his multiple psychiatric conditions.
--- NOTE | 2017-02-25 16:02 | PCM.PYCHPN ---
Psychiatric Progress Note - Psychiatric Progress Note Patient seen today, length of contact: 15 minutes Patient Chief Complaint: "I'm fine" Problems Identified/Issues Discussed: Patient was seen and evaluated. Chart was reviewed. Stuffed nose input received. Patient is compliant with the medication and he denied side effects. Patient is not oriented to time place person. He was eating the food by using his fingers. 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 Patient was uncooperative and refused to answer. DSM 5 Symptoms Update: Schizophrenia - acute exacerbation r/o dementia r/o intellectual disability? Medication Change: No Medical Record Reviewed: Yes Mental Status Examination - Cognitive Function Orientation: Person, Place (pt is not oriented to place), Time (not oriented to year and month) Attention: Poor Concentration: Poor Association: Loose Fund of Knowledge: Poor Decription of patient's judgement and insights: Limited/poor - Mood Mood: Other (Irritable) - Affect Affect: Constricted (odd) - Speech Speech: Loud (Soft to loud) - Formal Thought Process Formal Thought Process: Loosening of associations Psychotic Thoughts and Behaviors: Uncooperative, eating his food with the hands - Suicidal Ideation Suicidal Ideation: No - Homicidal Ideation Homicidal Ideation: No Goal/Treatment Plan - Goal/Treatment Plan Need for Continued Stay: Discharge may exacerbated symptoms, Severe functional impairment Progress Toward Problem(s) and Goals/Treatment Plan: Continue current management and treatment as per primary team Continue Abilify low dose for agitation, possible psychosis. Depakote for mood swings, agitation (he used it before) prn meds. Therapy in milieu. Recommend to involve the social media director for patient disposition. - Smoking Cessation Smoking Cessation Initiated: No
[2017-02-25] MEDS: (Novolog) Insulin Aspart, Recombinant 100 u/ml 10 ml vial SC SCH ×3 (16:30→22:00)
[2017-02-25] MEDS ORDERED: (Lantus) Insulin Glargine, Recombinant SC SCH ×2 (22:00)
--- NOTE | 2017-02-26 00:10 | CON ---
ENDOCRINOLOGY CONSULTATION LOCATION: Room 359. HISTORY OF PRESENT ILLNESS: This is a 56-year-old male with known history of type 2 insulin-requiring diabetes presenting here with aggressive behavioral disturbances with underlying bipolar disorder and is now being referred for diabetic evaluation and management. PAST MEDICAL HISTORY: History of type 2 insulin-requiring diabetes on a combination of Lantus given as 30 units at bedtime and Humalog given as 12 units t.i.d. before meals as given. His glycemic values have been fluctuating at home as per the with variable oral intake and erratic usage of his insulin regimen depending on his day-to-day mood swings. He has history of hypertension and dyslipidemia, history of coronary artery disease with underlying peripheral arterial disease and vasculopathy. There is also significant history of early dementia with progressively worsening emotional lability and behavioral disturbances and has had multiple admissions in the hospital for not only uncontrolled type 2 insulin-requiring diabetes with diabetic ketoacidosis and hyperosmolar state, but also has had multiple psychiatric admissions for behavioral disturbances and worsening psychosis as noted. FAMILY HISTORY: Positive for hypertension and heart disease. SOCIAL HISTORY: Patient has supportive family. No known substance use. REVIEW OF SYSTEMS: As per the , the patient has had bizarre behavioral disturbances over the last 2 to 3 days prior to admission and has also had disturbances to his neighbors as noted in the history. He has had also increasing bouts of dizziness and light-headedness with suboptimal energy level and generalized body weakness and episodic hypersomnolence and disruptive sleep pattern. No chest pains or palpations or PNDs. His oral intake has been variable with nausea, dyspepsia, and vague upper abdominal pains. Also admits to marked polyuria and nocturia and recent weight loss as noted. PHYSICAL EXAMINATION: GENERAL: This is an average-built male, in no apparent distress. VITAL SIGNS: Blood pressure of 140/80, pulse of 70 beats per minute and regular, temperature 99, respirations 20. His height is 5 feet 2 inches. Weight is 120 pounds. HEENT: Head is normocephalic. Eyes, anicteric with pink conjunctivae. Funduscopy is not possible at this time. Ears, nose, and throat otherwise normal. NECK: Supple. Thyroid gland is normal in size. No carotid bruits or any cervical adenopathy. CARDIOPULMONARY: Revealed adynamic precordium. S1 and S2 is rapid and regular. LUNGS: Clear to auscultation. ABDOMEN: Flat, soft with positive bowel sounds. EXTREMITIES: No peripheral edema. Pulses are +2 bilaterally. LABORATORY DATA: Chemistries, initial BUN of 56, sodium 124, potassium 5.9, chloride 95, CO2 of 20, glucose 417, and creatinine 1.5. ASSESSMENT: This is a 56-year-old male with uncontrolled and decompensated type 2 insulin-requiring diabetes presenting here with recent psychotic breakthrough and behavioral disturbances and also with concomitant uncontrolled type 2 insulin-requiring diabetes as noted thereof. There also is diabetic microvascular complications of retinopathy, polyneuropathy, and nephropathy with diabetic macrovascular complications of coronary artery disease and peripheral arterial disease and vasculopathy. PLAN OF MANAGEMENT: As discussed with the staff, we will modify his current insulin regimen and switch him to a more physiologic basal and bolus insulin drug combination with Lantus given at a higher dose of 30 units subcu at bedtime daily as ordered. We will start him with Humalog, Novolog given at 12 units subcu t.i.d. before meals as ordered. We will modify the coverage scale to obviate hypoglycemia and detailed orders have been given. We will recommend IV hydration with expected increased volume depletion from the underlying increased osmotic diuresis from the recent hyperglycemic accelerations as noted thereof. We will obtain serial chemistries and supplement accordingly as needed. We will also obtain baseline thyroid studies and lipid panel. Brook Hernandez MD
[2017-02-26] MEDS: Sodium Chloride 0.9% 1,000 ML IV SCH ×3 (05:14→19:25)
[2017-02-26 08:07] LABS: BASO # 0.1 K/uL (0.0-0.2); BASO % 0.7 % (0.0-2.0); EOS # 0.1 K/uL (0.0-0.7); HEMOGLOBIN 10.7 g/dL (12.0-18.0); LYMPH # 3.6 K/uL (1.0-4.3); MEAN PLATELET VOLUME 8.4 fL (7.2-11.7); MONO # 0.5 K/uL (0.0-0.8)
[2017-02-26 08:16] LABS: EOS % 1.3 % (0.0-4.0); LYMPH % 38.4 % (20.0-40.0); MEAN CORPUSCULAR HEMOGLOBIN 32.4 pg (27.0-31.0); MEAN CORPUSCULAR HGB CONC 34.2 g/dL (33.0-37.0); MONO % 5.5 % (0.0-10.0); NEUT % 54.1 % (50.0-75.0); RBC 3.32 Mil/uL (4.40-5.90); RED CELL DISTRIBUTION WIDTH 13.2 % (11.5-14.5); WHITE BLOOD COUNT 9.3 K/uL (4.8-10.8)
[2017-02-26 08:24] LABS: MEAN CELL VOLUME 94.6 fL (80.0-94.0)
[2017-02-26] MEDS: (Novolog) Insulin Aspart, Recombinant 100 u/ml 10 ml vial SC SCH ×7 (08:24→21:50)
[2017-02-26 08:38] LABS: LDL CHOLESTEROL 138 mg/dL (0-129)
--- NOTE | 2017-02-26 08:38 | CP.PCM.PN ---
<Radha Wells - Last Filed: 02/26/17 16:01> Subjective - Date & Time of Evaluation Date of Evaluation: 02/26/17 Time of Evaluation: 08:35 - Subjective Subjective: Medicine Progress Note: Hospitalist Service Patient seen and examined at bedside. Per nursing, patient has a blood sugar of over 500 this morning. Offers no complaints at this time. He is orientated to person and place, not time. Denies headaches, dizziness, cp, palpitations, sob, abdominal pain, urinary symptoms, changes in bowel habits. Objective - Vital Signs/Intake and Output Vital Signs (last 24 hours): Temp Pulse Resp BP Pulse Ox 98.3 F 91 H 20 138/69 98 02/26/17 00:12 02/26/17 00:12 02/26/17 00:12 02/26/17 00:12 02/26/17 00:12 Intake and Output: 02/26/17 02/26/17 06:59 18:59 Intake Total 360 Balance 360 - Medications Medications: Current Medications Aripiprazole (Abilify) 5 mg PO DAILY [facility] Last Admin: 02/25/17 10:20 Dose: 5 mg Aspirin (Ecotrin) 81 mg PO DAILY [facility] Last Admin: 02/25/17 12:04 Dose: 81 mg Clopidogrel Bisulfate (Plavix) 75 mg PO DAILY [facility] Last Admin: 02/25/17 12:14 Dose: 75 mg Dextrose (Dextrose 50% Inj) 0 ml IV STAT PRN; Protocol PRN Reason: Hypoglycemia Protocol Dextrose (Glutose 15) 0 gm PO ONCE PRN; Protocol PRN Reason: Hypoglycemia Protocol Divalproex Sodium (Depakote Dr) 500 mg PO BID [facility] Last Admin: 02/25/17 17:55 Dose: 500 mg Enoxaparin Sodium (Lovenox) 40 mg SC DAILY [facility] Last Admin: 02/25/17 10:06 Dose: 40 mg Glucagon (Glucagen Diagnostic Kit) 0 mg IM STAT PRN; Protocol PRN Reason: Hypoglycemia Protocol Haloperidol (Haldol) 5 mg PO Q1H PRN PRN Reason: agitation max 4x/24h Haloperidol Lactate (Haldol) 5 mg IM Q1H PRN PRN Reason: aggression max 4x/24h Sodium Chloride (Sodium Chloride 0.9%) 1,000 mls @ 100 mls/hr IV .Q10H [facility] Last Admin: 02/26/17 05:14 Dose: Not Given Dextrose (Dextrose 5% In Water 1000 Ml) 1,000 mls @ 0 mls/hr IV .Q0M PRN; Protocol; Per Protocol PRN Reason: Hypoglycemia Protocol Insulin Aspart (Novolog) 0 unit SC ACHS [facility] PRN Reason: Protocol Last Admin: 02/26/17 08:24 Dose: 4 unit Insulin Aspart (Novolog) 12 unit SC AC [facility] Last Admin: 02/26/17 08:25 Dose: 12 unit Insulin Glargine (Lantus) 30 unit SC HS [facility] Last Admin: 02/25/17 22:30 Dose: 30 units Lorazepam (Ativan) 1 mg PO Q4H PRN PRN Reason: severe agitation Metoprolol Succinate (Toprol Xl) 50 mg PO DAILY [facility] Last Admin: 02/25/17 12:15 Dose: 50 mg Pneumococcal Polyvalent Vaccine (Pneumovax 23 Vaccine) 0.5 ml IM .ONCE ONE Stop: 02/26/17 10:01 Rosuvastatin Calcium (Crestor) [address] [facility] Last Admin: 02/25/17 21:22 Dose: 5 mg - Labs Labs: 02/26/17 07:54 02/25/17 07:15 - Constitutional Appears: Well, No Acute Distress - Head Exam Head Exam: ATRAUMATIC, NORMAL INSPECTION, NORMOCEPHALIC - Eye Exam Eye Exam: EOMI - ENT Exam ENT Exam: Mucous Membranes Moist - Respiratory Exam Respiratory Exam: Clear to Ausculation Bilateral, NORMAL BREATHING PATTERN. absent: Rales, Rhonchi, Wheezes - Cardiovascular Exam Cardiovascular Exam: REGULAR RHYTHM, +S1, +S2 - GI/Abdominal Exam GI & Abdominal Exam: Soft, Normal Bowel Sounds. absent: Firm, Guarding, Rigid, Tenderness - Extremities Exam Extremities Exam: Normal Capillary Refill, Normal Inspection. absent: Calf Tenderness - Neurological Exam Neurological Exam: Alert, Awake. absent: Oriented x3 (Oriented to person and place) - Psychiatric Exam Psychiatric exam: Normal Affect, Normal Mood - Skin Skin Exam: Dry, Normal Color, Warm Assessment and Plan - Assessment and Plan (Free Text) Assessment: 1. Schizophrenia and Bipolar disorder * Psychiatry consulted, Dr. Burdick, help appreciated * Psych is recommending [facility] evaluation for alf care * Per ED documentation, Dr De Guzman wants 2 consecutive glucose levels below 200 * Patient will need to be medically stabilized * Management per psych team 2. History of Uncontrolled Diabetes Mellitus, non-compliant * Stable, afebrile * Last HgA1C 02/2017 - 13.0 * Accuchecks today range from 163-500, Serum glucose 676 * ABG showed pH 7.37 PO2 133 PCO2 19 HCO3 15.3 * Anion gap 16 * NS bolus 500 cc x 1; NS @ 150 cc/hr * Will order CXR to rule out infectious etiology * F/U blood cx, urine cx, UA, procalcitonin, amylase, lipase * Endocrine on consult, Dr Hernandez, help appreciated- Increased Novolog 16 units SC TID, Increased Lantus 40 units SC QHS * Continue Low dose ISS, accuchecks ACHS * Continue Crestor 5mg PO daily * Will consider adding lisinopril for renal protection, however will hold in setting of hyperkalemia * Hypoglycemic protocol 3. Hyperkalemia * Potassium was 5.8 on admission, patient was given insulin * Today Potassium is 5.7, Kayexylate ordered, sampson * Repeat BMP this afternoon * Will continue to monitor 4. Normacytic Anemia * Chronic in nature, Hgb at baseline * No active bleeding at this time * Will continue to monitor 5. History of Coronary Artery Disease * Continue ASA and plavix daily 6. History of Hypertension * Continue Toprol XL 50mg PO daily 7. History of Hyperlipidemia * Continue Crestor 5mg daily * Lipid panel from 02/2017 * Triglycerides - 225 * Cholesterol - 209 * LDL - 101 * HDL - 56 Prophylactic measures * Lovenox 40mg SC daily <Lashell Pappas V - Last Filed: 02/26/17 16:28> Objective - Vital Signs/Intake and Output Vital Signs (last 24 hours): Temp Pulse Resp BP Pulse Ox 98.4 F 86 20 155/84 H 100 02/26/17 15:34 02/26/17 15:34 02/26/17 15:34 02/26/17 15:34 02/26/17 15:34 Intake and Output: 02/26/17 02/26/17 06:59 18:59 Intake Total 360 Balance 360 - Medications Medications: Current Medications Aripiprazole (Abilify) 5 mg PO DAILY [facility] Last Admin: 02/26/17 10:14 Dose: 5 mg Aspirin (Ecotrin) 81 mg PO DAILY [facility] Last Admin: 02/26/17 10:11 Dose: 81 mg Clopidogrel Bisulfate (Plavix) 75 mg PO DAILY [facility] Last Admin: 02/26/17 10:11 Dose: 75 mg Dextrose (Dextrose 50% Inj) 0 ml IV STAT PRN; Protocol PRN Reason: Hypoglycemia Protocol Dextrose (Glutose 15) 0 gm PO ONCE PRN; Protocol PRN Reason: Hypoglycemia Protocol Divalproex Sodium (Depakote Dr) 500 mg PO BID [facility] Last Admin: 02/26/17 10:14 Dose: 500 mg Enoxaparin Sodium (Lovenox) 40 mg SC DAILY [facility] Last Admin: 02/26/17 10:11 Dose: 40 mg Glucagon (Glucagen Diagnostic Kit) 0 mg IM STAT PRN; Protocol PRN Reason: Hypoglycemia Protocol Haloperidol (Haldol) 5 mg PO Q1H PRN PRN Reason: agitation max 4x/24h Haloperidol Lactate (Haldol) 5 mg IM Q1H PRN PRN Reason: aggression max 4x/24h Dextrose (Dextrose 5% In Water 1000 Ml) 1,000 mls @ 0 mls/hr IV .Q0M PRN; Protocol; Per Protocol PRN Reason: Hypoglycemia Protocol Sodium Chloride (Sodium Chloride 0.9%) 1,000 mls @ 150 mls/hr IV .Q6H40M [facility] Last Admin: 02/26/17 14:21 Dose: Not Given Insulin Aspart (Novolog) 0 unit SC ACHS [facility] PRN Reason: Protocol Last Admin: 02/26/17 12:31 Dose: 4 unit Insulin Aspart (Novolog) 16 unit SC AC [facility] Insulin Glargine (Lantus) 40 unit SC HS [facility] Lorazepam (Ativan) 1 mg PO Q4H PRN PRN Reason: severe agitation Metoprolol Succinate (Toprol Xl) 50 mg PO DAILY [facility] Last Admin: 02/26/17 10:11 Dose: 50 mg Rosuvastatin Calcium (Crestor) 5 mg PO HS [facility] Last Admin: 02/25/17 21:22 Dose: 5 mg - Labs Labs: 02/26/17 07:54 02/26/17 07:54 Attending/Attestation - Attestation I have personally seen and examined this patient.: Yes I have fully participated in the care of the patient.: Yes I have reviewed all pertinent clinical information, including history, physical exam and plan: Yes Notes (Text): Patient seen, examined, and case discussed with daytime resident. Patient seen this morning and was very agitated. Patient's sugars were above 600. Nursing has placed a call out to endocrinology. Insulin was readjusted. Patient seen again during lunch. Patient refused to eat lunch. Patient reports that the lunch is the reason why he has diabetes. Patient reemphasized to eat lunch given that he is a diabetic and I have spoken with his [place]-speaking nurse Isha as well. There is a concern that patient may go into DKA. Patient did have an ABG today please know a think he hyperventilated during ABG with a CO2 of 19. Patient does have a mild gap. This afternoon patient has refused repeat blood work and IV fluids. Have asked the resident to go down and reassess the patient and as well as patient's afternoon nurse to try to get blood work. Given that we are trying to prevent deep DKA for the patient. Patient is clinically more hydrated compared to yesterday patient is denying any excessive bathroom use. I referred psych evaluation note as well noting patient does have a aggressive episodes. And is in denial of his 's recognition of his aggression. Recommends for social work consult. Given that this is the holiday there is no social or case management available to us during the holiday weekend. We'll continue to monitor patient. Patient with a prior history of congestive heart failure with a most recent echo in October 2016. Where in EF improved compared to prior echo in 2014 where EF was less than 25%. Patient is on IV fluids and prevention of dehydration in light of possible DKA resident is aware to monitor for fluid overload state. Will repeat chest x-ray this evening to see his lung status patient lungs are clear on exam this morning this patient will be endorsed to nighttime resident and my colleagues for further monitoring. Patient does have persistently high sugars in the 400s. Will order for blood, urine, chest xray and procalcitonin to rule out infection. Assessment/Plan 1. Schizophrenia and Bipolar disorder * Psychiatry consulted, Dr. Burdick, help appreciated * Psych is recommending [facility] evaluation for alf care * Patient will need to be medically stabilize * Management per psych team 2. History of Uncontrolled Diabetes Mellitus, non-compliant * Patient is awake, alert, aggresive. * Accuchecks >400 today. Marked by patient refusal of treatment such as IV fluids and refusal of repeat blood work * HgA1C 02/2017 - 13.0 * Endocrine consult placed, Dr Hernandez, help appreciated * Novolog 16 units SC AC * Lantus 40 units SC QHS * Novolog sliding scale subq * High dose ISS, accuchecks ACHS * Crestor 5mg PO daily * Will hold adding lisinopril for renal protection given hyperkalemia * Hypoglycemic protocol 3. Hyperkalemia * Potassium was 5.8 on admission, patient was given insulin * Today potassium is 5.5, Kayexylate ordered * We'll hold lisinopril given side effect of hyperkalemia * Will continue to monitor 4. Normocytic Anemia * Chronic in nature, Hgb at baseline * No active bleeding at this time * Will continue to monitor 5. History of Coronary Artery Disease * Continue ASA 81mg PO daily and plavix 75mg PO daily * Continue Crestor 5mg daily 6. History of Hypertension * Continue Toprol XL 50mg PO daily 7. History of Hyperlipidemia * Continue Crestor 5mg daily * Lipid panel from 02/2017 * Triglycerides - 225 * Cholesterol - 209 * LDL - 101 * HDL - 56 8) Prophylactic measures * Lovenox 40mg SC daily Disposition: Patient is pending medical clearance for possible [facility] evaluation for his multiple psychiatric conditions. Patient will need sugars below 200 prior to consideration to [facility]. Pending social work family meeting with his . Awaiting cultures to rule out infection.
[2017-02-26 08:39] LABS: MAGNESIUM 1.8 mg/dL (1.6-2.3)
[2017-02-26 08:42] LABS: ALB/GLOB RATIO 1.5 (1.0-2.1); ALBUMIN 3.7 g/dL (3.5-5.0); ALT/SGPT 48 U/L (21-72); AST/SGOT 36 U/L (17-59); BLOOD UREA NITROGEN 42 mg/dL (9-20); CALCIUM 8.9 mg/dl (8.6-10.4); GFR AFRICAN-AMERICAN > 60; GFR NON-AFRICAN AMERICAN 57; HDL CHOLESTEROL 81 mg/dL (30-70)
[2017-02-26] MEDS ORDERED: Influenza Vaccine 60 mcg/0.5 mL SYR (4YR UP) IM ONE (10:00)
[2017-02-26] MEDS ORDERED: Pneumococcal 23-Valent Vaccine IM ONE (10:00)
[2017-02-26] MEDS: Enoxaparin 40 mg Syringe SC SCH (10:11)
[2017-02-26] MEDS: Metoprolol Succinate 50 mg XL Tab PO SCH (10:11)
[2017-02-26] MEDS: Divalproex 500 mg DR Tab PO SCH ×3 (10:14→17:40)
--- NOTE | 2017-02-26 11:14 | PCM.PYCHPN ---
Psychiatric Progress Note - Psychiatric Progress Note Patient seen today, length of contact: 17 min Patient Chief Complaint: "I am OK" Problems Identified/Issues Discussed: The pt is seen, chart reviewed and case discussed. He is better than he was seen in ED: somewhat more organized, knows hospital name, city, state, month, year and that it is almost "new year." He also denies AVH, delusions, paranoia, SI/HI. However, he minimizes his condition (DM) but knows he has it. He also denies his 's allegations, i.e. aggression. 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 His speech is hard to understand at times. He wants to go home but he is not ready yet and cannot sign out AMA yet. His judgment is poor and is unpredictable, irate and thought disordered. Medication Change: No Medical Record Reviewed: Yes Mental Status Examination - Cognitive Function Orientation: Person, Place, Time Memory: Impaired Attention: Poor Concentration: Poor Association: Loose Fund of Knowledge: Poor - Mood Mood: Other (labile) - Affect Affect: Constricted (labile, odd) - Speech Speech: Loud (Soft to loud) - Formal Thought Process Formal Thought Process: Loosening of associations - Suicidal Ideation Suicidal Ideation: No - Homicidal Ideation Homicidal Ideation: No Goal/Treatment Plan - Goal/Treatment Plan Need for Continued Stay: Discharge may exacerbated symptoms, Severe functional impairment, Other (Still running very high FS) Progress Toward Problem(s) and Goals/Treatment Plan: Abilify low dose for agitation, possible psychosi Depakote for mood swings, agitation, check level after 4 days prn meds Collateral info - Please invite for a meeting with the SW and possibly psychiatrist (Dr. 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 However, he is still medically not cleared (gluc was 600+!
[2017-02-26 11:30] LABS: ABG ALLEN TEST P; ARTERIAL BLOOD GAS HCO3 15.3 mmol/L (21-28); ARTERIAL BLOOD GAS HEMOGLOBIN 10.2 g/dL (11.7-17.4); ARTERIAL BLOOD GAS O2 SAT 100.3 % (95-98); ARTERIAL BLOOD GAS PCO2 19 mm/Hg (35-45); ARTERIAL BLOOD GAS PH 7.37 (7.35-7.45); ARTERIAL BLOOD GAS PO2 133 mm/Hg (80-100); ARTERIAL BLOOD GAS TCO2 11.6 mmol/L (22-28)
[2017-02-26] MEDS ORDERED: Sodium Chloride 0.9% 500 ML IV ONE ×2 (12:52→13:58)
[2017-02-26] MEDS ORDERED: Sodium Chloride 0.9% 250 ML IV ONE (12:53)
[2017-02-26 13:41] LABS: AMYLASE 59 U/L (30-110); LIPASE 120 U/L (23-300)
--- NOTE | 2017-02-26 14:42 | PN ---
ENDOCRINOLOGY FOLLOWUP NOTE LOCATION: In the room #359. This is a 56-year-old male with recent uncontrolled type 2 insulin-requiring diabetes, presenting here with marked hyperglycemic accelerations and early ketosis with concomitant dehydration with prerenal azotemia and spurious hyponatremia. He received intensive insulin therapy and vigorous IV hydration as given. His latest chemistries showed a BUN of 42, sodium 125, potassium 5.7, chloride 91, CO2 of 18, glucose 676 and creatinine 1.3. His glucose levels have been extremely elevated overnight ranging from 408 to over 500 mg/dL. So at this time, we will modify and increase his IV hydration with normal saline to be given at 150 mL per hour as ordered. We will titrate incrementally as indicated to optimize metabolic control. We will also obtain serial chemistries and supplement accordingly as needed. We will increase his IV hydration of normal saline to 150 mL per hour as ordered. We will also titrate his insulin regimen to optimize metabolic control and increase the Lantus to 40 units subcu at bedtime daily to start tonight. We will also increase the NovoLog to 16 units subcu t.i.d. before meals to start at dinnertime today as ordered. We will continue the low-dose correction scale using NovoLog insulin as given. We will titrate incrementally as indicated to optimize metabolic control. We will follow. Brook Hernandez MD
[2017-02-26] MEDS ORDERED: Sod Polystyrene Sulf 15 gm/60 ml Susp PO ONE (15:36)
[2017-02-26] MEDS ORDERED: Albuterol-Ipratrop 3 mg / 0.5 (3 ml) UD INH STA (15:36)
[2017-02-26 16:36] LABS: BLOOD UREA NITROGEN 46 mg/dL (9-20); CALCIUM 8.9 mg/dl (8.6-10.4); GFR AFRICAN-AMERICAN > 60; GFR NON-AFRICAN AMERICAN 57
[2017-02-26 16:44] LABS: URINE BACTERIA RARE (<OCC); URINE BILIRUBIN NEGATIVE (NEGATIVE); URINE CLARITY Clear (Clear); URINE COLOR Yellow (YELLOW); URINE GLUCOSE (UA) 3+ mg/dL (Normal); URINE LEUKOCYTE ESTERASE NEG Leu/uL (Negative); URINE NITRATE NEGATIVE (NEGATIVE); URINE PROTEIN 1+ mg/dL (NEGATIVE); URINE UROBILINOGEN NORMAL mg/dL (0.2-1.0)
[2017-02-26 16:46] LABS: URINE BLOOD NEGATIVE (NEGATIVE)
--- NOTE | 2017-02-26 16:59 | RAD ---
HISTORY: R/O infectious process COMPARISON: 01/27/2017. FINDINGS: LUNGS: The lungs are hyperinflated and there is peribronchial thickening with chronic changes in both lungs. No focal consolidation. PLEURA: No significant pleural effusion identified, no pneumothorax apparent. CARDIOVASCULAR: Normal. OSSEOUS STRUCTURES: No significant abnormalities. VISUALIZED UPPER ABDOMEN: Normal. OTHER FINDINGS: None. IMPRESSION: No active pulmonary disease. COPD.
[2017-02-26] MEDS: (Lantus) Insulin Glargine, Recombinant SC SCH (21:48)
[2017-02-27] MEDS: Sodium Chloride 0.9% 1,000 ML IV SCH ×2 (03:00→08:15)
[2017-02-27 06:54] LABS: BASO % 0.5 % (0.0-2.0); EOS # 0.1 K/uL (0.0-0.7); EOS % 1.5 % (0.0-4.0); LYMPH % 44.7 % (20.0-40.0); MEAN CELL VOLUME 90.4 fL (80.0-94.0); MEAN CORPUSCULAR HEMOGLOBIN 31.9 pg (27.0-31.0); MEAN CORPUSCULAR HGB CONC 35.3 g/dL (33.0-37.0); MEAN PLATELET VOLUME 7.7 fL (7.2-11.7); MONO # 0.5 K/uL (0.0-0.8); MONO % 5.5 % (0.0-10.0); NEUT # 4.3 K/uL (1.8-7.0); NEUT % 47.8 % (50.0-75.0); NRBC % 0.1 % (0.0-2.0); RBC 2.83 Mil/uL (4.40-5.90); RED CELL DISTRIBUTION WIDTH 13.4 % (11.5-14.5); WHITE BLOOD COUNT 8.9 K/uL (4.8-10.8)
[2017-02-27 07:13] LABS: ALB/GLOB RATIO 1.3 (1.0-2.1); ALBUMIN 3.2 g/dL (3.5-5.0); ALT/SGPT 42 U/L (21-72); AST/SGOT 34 U/L (17-59); BLOOD UREA NITROGEN 40 mg/dL (9-20); CALCIUM 8.7 mg/dl (8.6-10.4); GFR AFRICAN-AMERICAN > 60; GFR NON-AFRICAN AMERICAN > 60; MAGNESIUM 1.7 mg/dL (1.6-2.3)
[2017-02-27] MEDS: (Novolog) Insulin Aspart, Recombinant 100 u/ml 10 ml vial SC SCH ×8 (08:13→21:42)
[2017-02-27] MEDS: Enoxaparin 40 mg Syringe SC SCH (09:20)
[2017-02-27] MEDS: Divalproex 500 mg DR Tab PO SCH ×2 (09:21→17:15)
[2017-02-27] MEDS: Metoprolol Succinate 50 mg XL Tab PO SCH (09:22)
--- NOTE | 2017-02-27 10:36 | CP.PCM.PN ---
<Neno Smith - Last Filed: 02/27/17 19:45> Subjective - Date & Time of Evaluation Date of Evaluation: 02/27/17 Time of Evaluation: 07:35 - Subjective Subjective: Medicine progress note for Dr. Gricel Wong Patient seen and examined at bedside. Patient reports no acute complaints. He states that he is in no pain and is eating well. Patient is requesting to go home. Objective - Vital Signs/Intake and Output Vital Signs (last 24 hours): Temp Pulse Resp BP Pulse Ox 98 F 84 20 130/80 97 02/27/17 07:42 02/27/17 07:42 02/27/17 07:42 02/27/17 07:42 02/27/17 07:42 Intake and Output: 02/27/17 02/27/17 06:59 18:59 Intake Total 740 Balance 740 - Medications Medications: Current Medications Aripiprazole (Abilify) 5 mg PO DAILY COUNT [facility]CLUD[facility] Last Admin: 02/27/17 09:22 Dose: 5 mg Aspirin (Ecotrin) 81 mg PO DAILY [facility]CLUD[facility] Last Admin: 02/27/17 09:20 Dose: 81 mg Clopidogrel Bisulfate (Plavix) 75 mg PO DAILY [facility] Last Admin: 02/27/17 09:22 Dose: 75 mg Dextrose (Dextrose 50% Inj) 0 ml IV STAT PRN; Protocol PRN Reason: Hypoglycemia Protocol Dextrose (Glutose 15) 0 gm PO ONCE PRN; Protocol PRN Reason: Hypoglycemia Protocol Divalproex Sodium (Depakote Dr) 500 mg PO BID COUNT [facility]CLUDES [facility] Last Admin: 02/27/17 09:21 Dose: 500 mg Enoxaparin Sodium (Lovenox) 40 mg SC DAILY [facility] Last Admin: 02/27/17 09:20 Dose: 40 mg Glucagon (Glucagen Diagnostic Kit) 0 mg IM STAT PRN; Protocol PRN Reason: Hypoglycemia Protocol Haloperidol (Haldol) 5 mg PO Q1H PRN PRN Reason: agitation max 4x/24h Last Admin: 02/26/17 19:53 Dose: 5 mg Haloperidol Lactate (Haldol) 5 mg IM Q1H PRN PRN Reason: aggression max 4x/24h Last Admin: 02/26/17 20:13 Dose: 5 mg Dextrose (Dextrose 5% In Water 1000 Ml) 1,000 mls @ 0 mls/hr IV .Q0M PRN; Protocol; Per Protocol PRN Reason: Hypoglycemia Protocol Sodium Chloride (Sodium Chloride 0.9%) 1,000 mls @ 150 mls/hr IV .Q6H40M COUNT INCLUDES [facility] Last Admin: 02/27/17 08:15 Dose: Not Given Insulin Aspart (Novolog) 0 unit SC ACHS COUNT INCLUDES [facility] PRN Reason: Protocol Last Admin: 02/27/17 08:14 Dose: Not Given Insulin Aspart (Novolog) 16 unit SC AC COUNT [facility]CLUDES [facility] Last Admin: 02/27/17 08:13 Dose: 16 unit Insulin Glargine (Lantus) 40 unit SC HS COUNT [facility]CLUDES [facility] Last Admin: 02/26/17 21:48 Dose: 40 units Lorazepam (Ativan) 1 mg PO Q4H PRN PRN Reason: severe agitation Last Admin: 02/26/17 19:53 Dose: 1 mg Metoprolol Succinate (Toprol Xl) 50 mg PO DAILY [facility] Last Admin: 02/27/17 09:22 Dose: 50 mg Rosuvastatin Calcium (Crestor) 5 mg PO [facility] Last Admin: 02/26/17 21:45 Dose: 5 mg - Labs Labs: 02/27/17 06:45 02/27/17 06:45 - Constitutional Appears: No Acute Distress - Head Exam Head Exam: ATRAUMATIC, NORMOCEPHALIC - Eye Exam Eye Exam: EOMI, Normal appearance - ENT Exam ENT Exam: Mucous Membranes Moist - Respiratory Exam Respiratory Exam: Clear to Ausculation Bilateral, NORMAL BREATHING PATTERN. absent: Rales, Rhonchi, Wheezes - Cardiovascular Exam Cardiovascular Exam: REGULAR RHYTHM, +S1, +S2 - GI/Abdominal Exam GI & Abdominal Exam: Soft, Normal Bowel Sounds. absent: Distended, Guarding, Tenderness - Extremities Exam Extremities Exam: Normal Inspection - Neurological Exam Neurological Exam: Alert, Awake. absent: Oriented x3 (person and place) - Psychiatric Exam Psychiatric exam: Anxious - Skin Skin Exam: Dry, Warm Assessment and Plan - Assessment and Plan (Free Text) Plan: 1. Schizophrenia and Bipolar disorder * Psychiatry consulted, Dr. Burdick, help appreciated * Psych is recommending [facility] for intermediate care * Per ED documentation, Dr De Guzman wants 2 consecutive glucose levels below 200 * Patient will need to be medically stabilized * Management per psych team 2. History of Uncontrolled Diabetes Mellitus, non-compliant * Stable, afebrile * HgA1C 02/2017 - 13.4 * Accuchecks today range from 163-500, Serum glucose 676 * ABG showed pH 7.37 PO2 133 PCO2 19 HCO3 15.3 * Anion gap 16 * NS @ 150 cc/hr * CXR shows no active disease but evidence of COPD * F/U blood cx, urine cx, * UA shows 1+ protein, 3+glucose and 6-10 hyaline casts * procalcitonin, amylase, lipase were all unremarkable * Endocrine on consult, Dr Hernandez, help appreciated- Novolog 16 units SC TIDAC, Lantus 40 units SC QHS * Continue Low dose ISS, accuchecks ACHS * Continue Crestor 10mg PO daily * Will consider adding lisinopril for renal protection, however will hold in setting of hyperkalemia * Hypoglycemic protocol 3. Hyperkalemia * Potassium was 5.8 on admission, patient was given insulin * yesterday Potassium is 5.7, Kayexylate ordered, duonebs * Resolved * Will continue to monitor 4. Normacytic Anemia * Chronic in nature, Hgb at baseline * No active bleeding at this time * Will continue to monitor 5. History of Coronary Artery Disease * Continue ASA and plavix daily 6. History of Hypertension * Continue Toprol XL 50mg PO daily 7. History of Hyperlipidemia * Increased Crestor to 10mg daily due to LDL given diabetic status * Lipid panel from 02/2017 * Triglycerides - 225 * Cholesterol - 209 * LDL - 101 * HDL - 56 Prophylactic measures * Lovenox 40mg SC daily Patient is now medically optimized for transfer to [facility] for long-term care. Per psychiatry, he remains unable to competently make decisions. Case DW Dr. Gricel Smith PGY-1 <Raymond Wong - Last Filed: 02/27/17 20:09> Objective - Vital Signs/Intake and Output Vital Signs (last 24 hours): Temp Pulse Resp BP Pulse Ox 98.2 F 87 20 134/74 100 02/27/17 15:00 02/27/17 15:00 02/27/17 15:00 02/27/17 15:00 02/27/17 15:00 Intake and Output: 02/27/17 02/28/17 18:59 06:59 Intake Total 300 Balance 300 - Medications Medications: Current Medications Aripiprazole (Abilify) 5 mg PO DAILY COUNT [facility]CLUD[facility] Last Admin: 02/27/17 09:22 Dose: 5 mg Aspirin (Ecotrin) 81 mg PO DAILY COUNT [facility]CLUDES [facility] Last Admin: 02/27/17 09:20 Dose: 81 mg Clopidogrel Bisulfate (Plavix) 75 mg PO DAILY COUNT [facility]CLUD[facility] Last Admin: 02/27/17 09:22 Dose: 75 mg Dextrose (Dextrose 50% Inj) 0 ml IV STAT PRN; Protocol PRN Reason: Hypoglycemia Protocol Dextrose (Glutose 15) 0 gm PO ONCE PRN; Protocol PRN Reason: Hypoglycemia Protocol Divalproex Sodium (Depakote Dr) 500 mg PO BID COUNT [facility]CLUD[facility] Last Admin: 02/27/17 17:15 Dose: 500 mg Enoxaparin Sodium (Lovenox) 40 mg SC DAILY COUNT [facility]CLUDES [facility] Last Admin: 02/27/17 09:20 Dose: 40 mg Glucagon (Glucagen Diagnostic Kit) 0 mg IM STAT PRN; Protocol PRN Reason: Hypoglycemia Protocol Haloperidol (Haldol) 5 mg PO Q1H PRN PRN Reason: agitation max 4x/24h Last Admin: 02/27/17 17:15 Dose: 5 mg Haloperidol Lactate (Haldol) 5 mg IM Q1H PRN PRN Reason: aggression max 4x/24h Last Admin: 02/26/17 20:13 Dose: 5 mg Dextrose (Dextrose 5% In Water 1000 Ml) 1,000 mls @ 0 mls/hr IV .Q0M PRN; Protocol; Per Protocol PRN Reason: Hypoglycemia Protocol Insulin Aspart (Novolog) 0 unit SC ACHS COUNT INCLUDES [facility] PRN Reason: Protocol Last Admin: 02/27/17 17:01 Dose: Not Given Insulin Aspart (Novolog) 16 unit SC AC COUNT INCLUDES [facility] Last Admin: 02/27/17 17:01 Dose: Not Given Insulin Glargine (Lantus) 40 unit SC HS COUNT INCLUDES [facility] Last Admin: 02/26/17 21:48 Dose: 40 units Lorazepam (Ativan) 1 mg PO Q4H PRN PRN Reason: severe agitation Last Admin: 02/27/17 17:15 Dose: 1 mg Metoprolol Succinate (Toprol Xl) 50 mg PO DAILY COUNT [facility]CLUDES [facility] Last Admin: 02/27/17 09:22 Dose: 50 mg Rosuvastatin Calcium (Crestor) 10 mg PO HS COUNT INCLUDES [facility] - Labs Labs: 02/27/17 06:45 02/27/17 06:45 Attending/Attestation - Attestation I have personally seen and examined this patient.: Yes I have fully participated in the care of the patient.: Yes I have reviewed all pertinent clinical information, including history, physical exam and plan: Yes Notes (Text): 02/27/17 20:03 Patient was seen and examined at 4:45 PM 02/27/17 359 A Exam, assessment and plan were thoroughly gone over with the resident Assessments: 1). Schizophrenia/Bipolar Disorder Reta Underwood PRN, [place] PRN Psychiatry Dr. Magana 2). DM 1 Aspart 12 units meals Lantus 30 units SC HS Hypoglycemic Protocol Aspart ISS ACHS 3). CAD/HF ASA, Plavix, Metoprolol, Crestor 4). HTN Metoprolol 5). HLD Crestor 5). Anemia Chronic Disease Monitor Hgb/Hct F/U TSH, T4 Disposition: Patient is medical optimized for transfer to Psychiatry [facility]. Medicine Team will speak with Psychiatry Team on 02/28/17 for them to arrange this. Raymond Wong D.O.
--- NOTE | 2017-02-27 14:01 | PN ---
DATE: ENDOCRINOLOGY FOLLOWUP NOTE LOCATION: Room 359. SUBJECTIVE: This is a 56-year-old male with recent uncontrolled type 2 insulin-requiring diabetes with marked hyperglycemic accelerations and is now being followed closely for metabolic management. His glycemic levels are fluctuating as noted, also related to the variability of his oral intake as noted. His glucose values today have ranged from 193 to 374 mg/dL. His latest chemistries showed a BUN of 40, sodium 132, potassium 4.3, chloride 98, CO2 of 27, glucose 151, and creatinine 1.2. So, at this time, we will hold off dose modifications of his insulin regimen to allow for dose equilibration and keep him on the Lantus given as 40 units subcu at bedtime daily as ordered. We will also continue the NovoLog given as 16 units subcu t.i.d. before meals as ordered. We will titrate incrementally as indicated to optimize metabolic control. We will also continue the low-dose correction scale using NovoLog insulin as given. The biggest concern is really the patient's adherence to his insulin regimen on the outpatient because of his underlying chronic schizoaffective disorder and behavioral disturbances thereof. We will follow and advise accordingly. Brook Hernandez MD
--- NOTE | 2017-02-27 19:24 | PCM.PYCHPN ---
Psychiatric Progress Note - Psychiatric Progress Note Patient seen today, length of contact: 15 min Patient Chief Complaint: "I'm better" Problems Identified/Issues Discussed: Patient was seen and evaluated. Chart was reviewed. Nurse input received that pt is with the medication. As per Dr. Fernandes, pt wants to be d/c. Pt is oriented to time and place. Pt stated that he is taking his meds and he denied side effects. He is less irritable. Pt stated that his appetite is good and slept well last night. DSM 5 Symptoms Update: Schizophrenia Dementia Medication Change: No Medical Record Reviewed: Yes Mental Status Examination - Cognitive Function Orientation: Person, Place, Time Memory: Impaired Attention: Poor Concentration: Poor Association: Loose Fund of Knowledge: Poor - Mood Mood: Other (labile) - Affect Affect: Constricted (labile, odd) - Speech Speech: Loud (Soft to loud) - Formal Thought Process Formal Thought Process: Loosening of associations - Suicidal Ideation Suicidal Ideation: No - Homicidal Ideation Homicidal Ideation: No Goal/Treatment Plan - Goal/Treatment Plan Need for Continued Stay: Discharge may exacerbated symptoms, Severe functional impairment, Other (Still running very high FS) Progress Toward Problem(s) and Goals/Treatment Plan: Continue current management and treatment as per primary team Continue Abilify low dose for agitation, possible psychosis. Depakote for mood swings, agitation (he used it before) prn meds. Therapy in milieu. Psychoeducation regarding medication, benefits, side effects provided to pt. Recommend to involve the social worker school for patient disposition. Recommend SW to involve family members regarding pt disposition and mental and physical health. Pt cannot sign out AMA yet. His judgment is poor and is unpredictable. Pt information was collaborated with primary team
[2017-02-27] MEDS: (Lantus) Insulin Glargine, Recombinant SC SCH (21:43)
[2017-02-28 06:23] LABS: BASO # 0.1 K/uL (0.0-0.2); BASO % 0.7 % (0.0-2.0); EOS # 0.2 K/uL (0.0-0.7); HEMOGLOBIN 9.4 g/dL (12.0-18.0); LYMPH # 3.8 K/uL (1.0-4.3); LYMPH % 49.5 % (20.0-40.0); MEAN CELL VOLUME 91.2 fL (80.0-94.0); MEAN CORPUSCULAR HEMOGLOBIN 31.5 pg (27.0-31.0); MEAN CORPUSCULAR HGB CONC 34.6 g/dL (33.0-37.0); MEAN PLATELET VOLUME 7.7 fL (7.2-11.7); MONO # 0.5 K/uL (0.0-0.8); MONO % 6.6 % (0.0-10.0); NEUT # 3.1 K/uL (1.8-7.0); NEUT % 41.2 % (50.0-75.0); NRBC % 0.1 % (0.0-2.0); RBC 2.97 Mil/uL (4.40-5.90); WHITE BLOOD COUNT 7.6 K/uL (4.8-10.8)
[2017-02-28] MEDS: (Novolog) Insulin Aspart, Recombinant 100 u/ml 10 ml vial SC SCH ×7 (07:30→21:44)
--- NOTE | 2017-02-28 07:35 | CP.PCM.PN ---
<Neno Smith S - Last Filed: 02/28/17 16:00> Subjective - Date & Time of Evaluation Date of Evaluation: 02/28/17 Time of Evaluation: 07:40 - Subjective Subjective: Medicine progress note for Dr. Gricel Wong Patient seen and examined at bedside. Patient feels well with no acute complaints and still wishes to go home. Objective - Vital Signs/Intake and Output Vital Signs (last 24 hours): Temp Pulse Resp BP Pulse Ox 98.5 F 80 20 147/80 99 02/27/17 23:33 02/27/17 23:33 02/27/17 23:33 02/27/17 23:33 02/27/17 23:33 Intake and Output: 02/28/17 02/28/17 06:59 18:59 Intake Total 450 Output Total 500 Balance -50 - Medications Medications: Current Medications Aripiprazole (Abilify) 5 mg PO DAILY [facility] Last Admin: 02/27/17 09:22 Dose: 5 mg Aspirin (Ecotrin) 81 mg PO DAILY [facility] Last Admin: 02/27/17 09:20 Dose: 81 mg Clopidogrel Bisulfate (Plavix) 75 mg PO DAILY [facility] Last Admin: 02/27/17 09:22 Dose: 75 mg Dextrose (Dextrose 50% Inj) 0 ml IV STAT PRN; Protocol PRN Reason: Hypoglycemia Protocol Dextrose (Glutose 15) 0 gm PO ONCE PRN; Protocol PRN Reason: Hypoglycemia Protocol Divalproex Sodium (Depakote Dr) 500 mg PO BID [facility] Last Admin: 02/27/17 17:15 Dose: 500 mg Enoxaparin Sodium (Lovenox) 40 mg SC DAILY [facility] Last Admin: 02/27/17 09:20 Dose: 40 mg Glucagon (Glucagen Diagnostic Kit) 0 mg IM STAT PRN; Protocol PRN Reason: Hypoglycemia Protocol Haloperidol (Haldol) 5 mg PO Q1H PRN PRN Reason: agitation max 4x/24h Last Admin: 02/27/17 21:45 Dose: 5 mg Haloperidol Lactate (Haldol) 5 mg IM Q1H PRN PRN Reason: aggression max 4x/24h Last Admin: 02/26/17 20:13 Dose: 5 mg Dextrose (Dextrose 5% In Water 1000 Ml) 1,000 mls @ 0 mls/hr IV .Q0M PRN; Protocol; Per Protocol PRN Reason: Hypoglycemia Protocol Insulin Aspart (Novolog) 0 unit SC ACHS [facility] PRN Reason: Protocol Last Admin: 02/27/17 21:42 Dose: 2 unit Insulin Aspart (Novolog) 16 unit SC AC [facility] Last Admin: 02/27/17 17:25 Dose: 16 unit Insulin Glargine (Lantus) 40 unit SC HS [facility] Last Admin: 02/27/17 21:43 Dose: 40 units Lorazepam (Ativan) 1 mg PO Q4H PRN PRN Reason: severe agitation Last Admin: 02/27/17 17:15 Dose: 1 mg Metoprolol Succinate (Toprol Xl) 50 mg PO DAILY [facility] Last Admin: 02/27/17 09:22 Dose: 50 mg Rosuvastatin Calcium (Crestor) 10 mg PO HS [facility] Last Admin: 02/27/17 21:42 Dose: 10 mg - Labs Labs: 02/28/17 06:04 02/27/17 06:45 - Constitutional Appears: No Acute Distress - Head Exam Head Exam: ATRAUMATIC, NORMOCEPHALIC - Eye Exam Eye Exam: EOMI, Normal appearance - ENT Exam ENT Exam: Mucous Membranes Moist - Respiratory Exam Respiratory Exam: Clear to Ausculation Bilateral, NORMAL BREATHING PATTERN. absent: Rales, Rhonchi, Wheezes - Cardiovascular Exam Cardiovascular Exam: REGULAR RHYTHM, +S1, +S2 - GI/Abdominal Exam GI & Abdominal Exam: Soft, Normal Bowel Sounds. absent: Tenderness - Extremities Exam Extremities Exam: absent: Pedal Edema, Tenderness - Neurological Exam Neurological Exam: Alert, Awake, Oriented x3 - Psychiatric Exam Psychiatric exam: Anxious - Skin Skin Exam: Dry, Warm Assessment and Plan - Assessment and Plan (Free Text) Plan: 1. Schizophrenia and Bipolar disorder * Psychiatry consulted, Dr. Burdick, help appreciated * Psych is recommending [facility] evaluation for [facility] * Per ED documentation, Dr De Guzman wants 2 consecutive glucose levels below 200 * Patient medically optimized * Management per psych team 2. History of Uncontrolled Diabetes Mellitus, non-compliant * Stable, afebrile * HgA1C 02/2017 - 13.4 * Accuchecks today range from 163-500, Serum glucose 676 * ABG showed pH 7.37 PO2 133 PCO2 19 HCO3 15.3 * Anion gap 16 * NS @ 150 cc/hr * CXR shows no active disease but evidence of COPD * F/U blood cx, urine cx, * UA shows 1+ protein, 3+glucose and 6-10 hyaline casts * procalcitonin, amylase, lipase were all unremarkable * Endocrine on consult, Dr Hernandez, help appreciated- Novolog 16 units SC TIDAC, Lantus 40 units SC QHS * Continue Low dose ISS, accuchecks ACHS * Continue Crestor 10mg PO daily * Will consider adding lisinopril for renal protection, however will hold in setting of hyperkalemia * Hypoglycemic protocol 3. Hyperkalemia * Potassium was 5.8 on admission, patient was given insulin * yesterday Potassium is 5.7, Kayexylate ordered, duonebs * Resolved * Will continue to monitor 4. Normacytic Anemia * Chronic in nature, Hgb at baseline * No active bleeding at this time * Will continue to monitor 5. History of Coronary Artery Disease * Continue ASA and plavix daily 6. History of Hypertension * Continue Toprol XL 50mg PO daily 7. History of Hyperlipidemia * Increased Crestor to 10mg daily due to LDL given diabetic status * Lipid panel from 02/2017 * Triglycerides - 225 * Cholesterol - 209 * LDL - 101 * HDL - 56 Prophylactic measures * Lovenox 40mg SC daily Patient is medically optimized for transfer to [facility] for long-term care. Per psychiatry, he remains unable to competently make decisions and will be screened for involuntary commitment at [facility]. Case DW Dr. Gricel Smith PGY1 <Raymond Wong - Last Filed: 02/28/17 18:47> Objective - Vital Signs/Intake and Output Vital Signs (last 24 hours): Temp Pulse Resp BP Pulse Ox 98.8 F 87 20 163/89 H 100 02/28/17 16:21 02/28/17 16:21 02/28/17 16:21 02/28/17 16:21 02/28/17 16:21 Intake and Output: 02/28/17 02/28/17 06:59 18:59 Intake Total 450 Output Total 500 Balance -50 - Medications Medications: Current Medications Aripiprazole (Abilify) 5 mg PO DAILY [facility] Last Admin: 02/28/17 10:25 Dose: 5 mg Aspirin (Ecotrin) 81 mg PO DAILY [facility] Last Admin: 02/28/17 10:20 Dose: 81 mg Clopidogrel Bisulfate (Plavix) 75 mg PO DAILY [facility] Last Admin: 02/28/17 10:23 Dose: 75 mg Dextrose (Dextrose 50% Inj) 0 ml IV STAT PRN; Protocol PRN Reason: Hypoglycemia Protocol Dextrose (Glutose 15) 0 gm PO ONCE PRN; Protocol PRN Reason: Hypoglycemia Protocol Divalproex Sodium (Depakote Dr) 500 mg PO BID [facility] Last Admin: 02/28/17 17:34 Dose: 500 mg Enoxaparin Sodium (Lovenox) 40 mg SC DAILY [facility] Last Admin: 02/28/17 10:24 Dose: 40 mg Glucagon (Glucagen Diagnostic Kit) 0 mg IM STAT PRN; Protocol PRN Reason: Hypoglycemia Protocol Haloperidol (Haldol) 5 mg PO Q1H PRN PRN Reason: agitation max 4x/24h Last Admin: 02/27/17 21:45 Dose: 5 mg Haloperidol Lactate (Haldol) 5 mg IM Q1H PRN PRN Reason: aggression max 4x/24h Last Admin: 02/26/17 20:13 Dose: 5 mg Dextrose (Dextrose 5% In Water 1000 Ml) 1,000 mls @ 0 mls/hr IV .Q0M PRN; Protocol; Per Protocol PRN Reason: Hypoglycemia Protocol Insulin Aspart (Novolog) 0 unit SC ACHS [facility] PRN Reason: Protocol Last Admin: 02/28/17 17:04 Dose: 2 unit Insulin Aspart (Novolog) 16 unit SC AC [facility] Last Admin: 02/28/17 17:05 Dose: 16 unit Insulin Glargine (Lantus) 40 unit SC HS [facility] Last Admin: 02/27/17 21:43 Dose: 40 units Lorazepam (Ativan) 1 mg PO Q4H PRN PRN Reason: severe agitation Last Admin: 02/27/17 17:15 Dose: 1 mg Metoprolol Succinate (Toprol Xl) 50 mg PO DAILY [facility] Last Admin: 02/28/17 10:18 Dose: 50 mg Rosuvastatin Calcium (Crestor) 10 mg PO HS [facility] Last Admin: 02/27/17 21:42 Dose: 10 mg - Labs Labs: 02/28/17 06:04 02/28/17 06:04 Attending/Attestation - Attestation I have personally seen and examined this patient.: Yes I have fully participated in the care of the patient.: Yes I have reviewed all pertinent clinical information, including history, physical exam and plan: Yes Notes (Text): 02/28/17 18:46 Hospitalist Progress Note Patient was seen and examined at 1:00 PM 02/28/17 359 A Exam, assessment and plan were thoroughly gone over with the resident Assessments: 1). Schizophrenia/Bipolar Disorder Abilify, Haldol PRN, Ativan PRN Psychiatry Dr. Magana/Guicho 2). DM 1 Aspart 12 units meals Lantus 30 units SC HS Hypoglycemic Protocol Aspart ISS ACHS 3). CAD/HF ASA, Plavix, Metoprolol, Crestor 4). HTN Metoprolol 5). HLD Crestor 5). Anemia Chronic Disease Monitor Hgb/Hct TSH and T4 are WNL Disposition: Patient is medical optimized for transfer to Psychiatry [facility]. Medicine Team spoke with Psychiatry Team on 02/28/[address] Lindo to contact [facility]. Resident Care Provider Adam was also made aware. Raymond Wong D.O. 02/28/17 18:47
[2017-02-28 08:18] LABS: ALB/GLOB RATIO 1.3 (1.0-2.1); ALBUMIN 3.2 g/dL (3.5-5.0); ALT/SGPT 44 U/L (21-72); AST/SGOT 51 U/L (17-59); BLOOD UREA NITROGEN 29 mg/dL (9-20); CALCIUM 8.5 mg/dl (8.6-10.4); GFR AFRICAN-AMERICAN > 60; GFR NON-AFRICAN AMERICAN > 60; MAGNESIUM 1.8 mg/dL (1.6-2.3)
[2017-02-28] MEDS: Metoprolol Succinate 50 mg XL Tab PO SCH (10:18)
[2017-02-28] MEDS: Enoxaparin 40 mg Syringe SC SCH (10:24)
[2017-02-28] MEDS: Divalproex 500 mg DR Tab PO SCH ×2 (10:25→17:34)
--- NOTE | 2017-02-28 12:05 | PCM.PYCHPN ---
Psychiatric Progress Note - Psychiatric Progress Note Patient seen today, length of contact: 15 min Patient Chief Complaint: " I want to go home" Problems Identified/Issues Discussed: The pt is seen, chart reviewed and case discussed. Patient was seen at the nursing station with his nurse. Patient was quite agitated and states that he wants to go home. Patient states that " I have been here for many days and nothing is wrong with me, i just want to go home." Patient's was called with the help of nurse Stefanie on 3T as event staff. Patient's that they have no place to live, she is currently living in a Hotel and cannot accommodate her . She states that they have been kicked out of 3 apartments because of the patient's agitation and aggression. Patient' s states that she no longer has the help to take care of her . During the conversation, patient's was told that [facility] [place] and if accepted, patient will go with [facility] and if not, patient will be discharged home to family. DSM 5 Symptoms Update: Schizophrenia Possible Dementia Medication Change: No Medical Record Reviewed: Yes Mental Status Examination - Cognitive Function Orientation: Person, Place Memory: Impaired Attention: Poor Concentration: Poor Association: Loose Fund of Knowledge: Poor - Mood Mood: Other (labile and agitated) - Affect Affect: Constricted (labile, odd) - Speech Speech: Loud (Soft to loud and incoherent at times ) - Formal Thought Process Formal Thought Process: Loosening of associations - Suicidal Ideation Suicidal Ideation: No - Homicidal Ideation Homicidal Ideation: No Goal/Treatment Plan - Goal/Treatment Plan Need for Continued Stay: Discharge may exacerbated symptoms, Severe functional impairment, Other (Still running very high FS) Progress Toward Problem(s) and Goals/Treatment Plan: Continue current management and treatment as per primary team Continue Abilify low dose for agitation, possible psychosis. Depakote for mood swings, agitation (he used it before) As needed medications Pt cannot sign out AMA yet. His judgment is poor and is unpredictable. [facility] [place] possible long-term placement. Patient's notified via phone conversation. Patient's is not cooperative. - Smoking Cessation Smoking Cessation Initiated: No
[2017-02-28] MEDS: (Lantus) Insulin Glargine, Recombinant SC SCH (21:45)
[2017-02-28] MEDS ORDERED: (Lantus) Insulin Glargine, Recombinant SC ONE (23:22)
--- NOTE | 2017-03-01 06:46 | PN ---
DATE: ENDOCRINOLOGY FOLLOWUP NOTE LOCATION: In the room #359. This is a 56-year-old male with recent uncontrolled type 2 insulin-requiring diabetes, now being followed closely for metabolic management. His glycemic levels are fluctuating, but improved and the latest glucose levels have ranged from 90-129 and 413 mg/dL at bedtime last night. His chemistries showed a BUN of 29, sodium 134, potassium 4.1, chloride of 100, CO2 of 28, glucose 97 and creatinine 1.1. So at this time, we will continue the same basal and bolus insulin regimen to allow for dose equilibration and keep him on the NovoLog given as 16 units subcu t.i.d. before meals and Lantus given as 40 units subcu at bedtime daily as ordered. We will continue the low dose correction scale using Novolog insulin as given. We will follow. Brook Hernandez MD
--- NOTE | 2017-03-01 06:58 | CP.PCM.PN ---
<Neno Smith - Last Filed: 03/01/17 16:29> Subjective - Date & Time of Evaluation Date of Evaluation: 03/01/17 Time of Evaluation: 07:10 - Subjective Subjective: Medicine progress note for Dr. Gricel Wong Patient seen and examined at bedside. Patient feels well with no acute complaints and still wishes to go home. Objective - Vital Signs/Intake and Output Vital Signs (last 24 hours): Temp Pulse Resp BP Pulse Ox 98.1 F 81 20 142/69 98 03/01/17 00:00 03/01/17 00:00 03/01/17 00:00 03/01/17 00:00 03/01/17 00:00 Intake and Output: 02/28/17 03/01/17 18:59 06:59 Intake Total 840 Output Total 450 Balance 390 - Medications Medications: Current Medications Aripiprazole (Abilify) 5 mg PO DAILY [facility] Last Admin: 02/28/17 10:25 Dose: 5 mg Aspirin (Ecotrin) 81 mg PO DAILY [facility] Last Admin: 02/28/17 10:20 Dose: 81 mg Clopidogrel Bisulfate (Plavix) 75 mg PO DAILY [facility] Last Admin: 02/28/17 10:23 Dose: 75 mg Dextrose (Dextrose 50% Inj) 0 ml IV STAT PRN; Protocol PRN Reason: Hypoglycemia Protocol Dextrose (Glutose 15) 0 gm PO ONCE PRN; Protocol PRN Reason: Hypoglycemia Protocol Divalproex Sodium (Depakote Dr) 500 mg PO BID [facility] Last Admin: 02/28/17 17:34 Dose: 500 mg Enoxaparin Sodium (Lovenox) 40 mg SC DAILY [facility] Last Admin: 02/28/17 10:24 Dose: 40 mg Glucagon (Glucagen Diagnostic Kit) 0 mg IM STAT PRN; Protocol PRN Reason: Hypoglycemia Protocol Haloperidol (Haldol) 5 mg PO Q1H PRN PRN Reason: agitation max 4x/24h Last Admin: 02/27/17 21:45 Dose: 5 mg Haloperidol Lactate (Haldol) 5 mg IM Q1H PRN PRN Reason: aggression max 4x/24h Last Admin: 02/26/17 20:13 Dose: 5 mg Dextrose (Dextrose 5% In Water 1000 Ml) 1,000 mls @ 0 mls/hr IV .Q0M PRN; Protocol; Per Protocol PRN Reason: Hypoglycemia Protocol Insulin Aspart (Novolog) 0 unit SC ACHS [facility] PRN Reason: Protocol Last Admin: 02/28/17 21:44 Dose: Not Given Insulin Aspart (Novolog) 16 unit SC AC [facility] Last Admin: 02/28/17 17:05 Dose: 16 unit Insulin Glargine (Lantus) 40 unit SC HS [facility] Last Admin: 02/28/17 21:45 Dose: Not Given Lorazepam (Ativan) 1 mg PO Q4H PRN PRN Reason: severe agitation Last Admin: 02/27/17 17:15 Dose: 1 mg Metoprolol Succinate (Toprol Xl) 50 mg PO DAILY [facility] Last Admin: 02/28/17 10:18 Dose: 50 mg Rosuvastatin Calcium (Crestor) 10 mg PO [facility] Last Admin: 02/28/17 22:22 Dose: 10 mg - Labs Labs: 02/28/17 06:04 02/28/17 06:04 - Constitutional Appears: No Acute Distress - Head Exam Head Exam: ATRAUMATIC, NORMOCEPHALIC - Eye Exam Eye Exam: EOMI, Normal appearance - ENT Exam ENT Exam: Mucous Membranes Moist - Respiratory Exam Respiratory Exam: Clear to Ausculation Bilateral. absent: Rales, Rhonchi, Wheezes - Cardiovascular Exam Cardiovascular Exam: REGULAR RHYTHM, +S1, +S2 - GI/Abdominal Exam GI & Abdominal Exam: Soft, Normal Bowel Sounds. absent: Tenderness - Neurological Exam Neurological Exam: Alert, Awake - Psychiatric Exam Psychiatric exam: Anxious - Skin Skin Exam: Dry, Intact, Normal Color, Warm Assessment and Plan - Assessment and Plan (Free Text) Plan: 1. Schizophrenia and Bipolar disorder * Psychiatry consulted, Dr. Burdick, help appreciated * Psych is recommending [facility] evaluation for egg gatherer care * Per ED documentation, Dr De Guzman wants 2 consecutive glucose levels below 200 * Patient medically optimized * Management per psych team * Pending [facility] screening 2. History of Uncontrolled Diabetes Mellitus, non-compliant * Stable, afebrile * HgA1C 02/2017 - 13.4 * Accuchecks today range from 163-500, Serum glucose 676 * ABG showed pH 7.37 PO2 133 PCO2 19 HCO3 15.3 * Anion gap 16 * NS @ 150 cc/hr * CXR shows no active disease but evidence of COPD * F/U blood cx, urine cx, * UA shows 1+ protein, 3+glucose and 6-10 hyaline casts * procalcitonin, amylase, lipase were all unremarkable * Endocrine on consult, Dr Hernandez, help appreciated- Novolog 16 units SC TIDAC, Lantus 40 units SC QHS * Continue Low dose ISS, accuchecks ACHS * Continue Crestor 10mg PO daily * Will consider adding lisinopril for renal protection, however will hold in setting of hyperkalemia * Hypoglycemic protocol 3. Hyperkalemia * Potassium was 5.8 on admission, patient was given insulin * yesterday Potassium is 5.7, Kayexylate ordered, duonebs * Resolved * Will continue to monitor 4. Normacytic Anemia * Chronic in nature, Hgb at baseline * No active bleeding at this time * Will continue to monitor 5. History of Coronary Artery Disease * Continue ASA and plavix daily 6. History of Hypertension * Continue Toprol XL 50mg PO daily 7. History of Hyperlipidemia * Increased Crestor to 10mg daily due to LDL given diabetic status * Lipid panel from 02/2017 * Triglycerides - 225 * Cholesterol - 209 * LDL - 101 * HDL - 56 Prophylactic measures * Lovenox 40mg SC daily Patient is medically optimized for transfer to [facility] for long-term care. Per psychiatry, he remains unable to competently make decisions and will be screened for involuntary commitment at [facility]. shop worker is also looking into placement options at the center where the patient previously stayed. Case DW Dr. Gricel Smith PGY-1 <Raymond Wong - Last Filed: 03/01/17 17:16> Objective - Vital Signs/Intake and Output Vital Signs (last 24 hours): Temp Pulse Resp BP Pulse Ox 98.3 F 84 20 159/71 H 99 03/01/17 15:00 03/01/17 15:00 03/01/17 15:00 03/01/17 15:00 03/01/17 15:00 Intake and Output: 03/01/17 03/01/17 06:59 18:59 Intake Total 840 250 Output Total 450 500 Balance 390 -250 - Medications Medications: Current Medications Aripiprazole (Abilify) 5 mg PO DAILY [facility] Last Admin: 03/01/17 10:04 Dose: 5 mg Aspirin (Ecotrin) 81 mg PO DAILY [facility] Last Admin: 03/01/17 10:04 Dose: 81 mg Clopidogrel Bisulfate (Plavix) 75 mg PO DAILY [facility] Last Admin: 03/01/17 10:04 Dose: 75 mg Dextrose (Dextrose 50% Inj) 0 ml IV STAT PRN; Protocol PRN Reason: Hypoglycemia Protocol Dextrose (Glutose 15) 0 gm PO ONCE PRN; Protocol PRN Reason: Hypoglycemia Protocol Divalproex Sodium (Depakote Dr) 500 mg PO BID [facility] Last Admin: 03/01/17 10:04 Dose: 500 mg Enoxaparin Sodium (Lovenox) 40 mg SC DAILY [facility] Last Admin: 03/01/17 10:04 Dose: 40 mg Glucagon (Glucagen Diagnostic Kit) 0 mg IM STAT PRN; Protocol PRN Reason: Hypoglycemia Protocol Haloperidol (Haldol) 5 mg PO Q1H PRN PRN Reason: agitation max 4x/24h Last Admin: 02/27/17 21:45 Dose: 5 mg Haloperidol Lactate (Haldol) 5 mg IM Q1H PRN PRN Reason: aggression max 4x/24h Last Admin: 02/26/17 20:13 Dose: 5 mg Dextrose (Dextrose 5% In Water 1000 Ml) 1,000 mls @ 0 mls/hr IV .Q0M PRN; Protocol; Per Protocol PRN Reason: Hypoglycemia Protocol Insulin Aspart (Novolog) 0 unit SC ACHS [facility] PRN Reason: Protocol Last Admin: 03/01/17 11:30 Dose: Not Given Insulin Aspart (Novolog) 10 unit SC AC [facility] Insulin Glargine (Lantus) 24 unit SC HS [facility] Lorazepam (Ativan) 1 mg PO Q4H PRN PRN Reason: severe agitation Last Admin: 02/27/17 17:15 Dose: 1 mg Metoprolol Succinate (Toprol Xl) 50 mg PO DAILY [facility] Last Admin: 03/01/17 10:04 Dose: 50 mg Rosuvastatin Calcium (Crestor) 10 mg PO HS [facility] Last Admin: 02/28/17 22:22 Dose: 10 mg - Labs Labs: 03/01/17 07:09 03/01/17 07:09 Attending/Attestation - Attestation I have personally seen and examined this patient.: Yes I have fully participated in the care of the patient.: Yes I have reviewed all pertinent clinical information, including history, physical exam and plan: Yes Notes (Text): 03/01/17 17:09 Hospitalist Progress Note Patient was seen and examined at 2:55 PM 03/01/17 359 A Exam, assessment and plan were thoroughly gone over with the resident Assessments: 1). Schizophrenia/Bipolar Disorder Abilicandelaria, Haldol PRN, Ativan PRN Psychiatry Dr. Magana/Guicho 2). DM 1 Aspart 12 units meals Lantus 30 units SC HS Hypoglycemic Protocol Aspart ISS ACHS 3). CAD/HF ASA, Plavix, Metoprolol, Crestor 4). HTN Metoprolol 5). HLD Crestor 5). Anemia Chronic Disease Monitor Hgb/Hct TSH and T4 are WNL Disposition: Patient is medical optimized for transfer to Psychiatry [facility]. Medicine Team spoke with Psychiatry Team on 02/28/[address] Lindo to contact [facility]. Wind Turbine Machinist Adam was also made aware. If [facility] does NOT accept patient , then option would be for [facility], which Wind Turbine Machinist Andrea is working on. Raymond Wong D.O.
[2017-03-01 07:21] LABS: BASO % 0.4 % (0.0-2.0); EOS # 0.1 K/uL (0.0-0.7); HEMOGLOBIN 9.3 g/dL (12.0-18.0); LYMPH % 40.9 % (20.0-40.0); MEAN CELL VOLUME 91.1 fL (80.0-94.0); MEAN CORPUSCULAR HEMOGLOBIN 31.8 pg (27.0-31.0); MEAN CORPUSCULAR HGB CONC 34.9 g/dL (33.0-37.0); MEAN PLATELET VOLUME 8.2 fL (7.2-11.7); MONO # 0.5 K/uL (0.0-0.8); MONO % 7.2 % (0.0-10.0); NEUT # 3.7 K/uL (1.8-7.0); NEUT % 49.5 % (50.0-75.0); RBC 2.94 Mil/uL (4.40-5.90); WHITE BLOOD COUNT 7.4 K/uL (4.8-10.8)
[2017-03-01] MEDS: (Novolog) Insulin Aspart, Recombinant 100 u/ml 10 ml vial SC SCH ×7 (08:00→21:57)
[2017-03-01 08:21] LABS: ALBUMIN 3.2 g/dL (3.5-5.0); ALT/SGPT 44 U/L (21-72); AST/SGOT 47 U/L (17-59); BLOOD UREA NITROGEN 26 mg/dL (9-20); CALCIUM 8.4 mg/dl (8.6-10.4); GFR AFRICAN-AMERICAN > 60; GFR NON-AFRICAN AMERICAN 57; MAGNESIUM 1.8 mg/dL (1.6-2.3)
[2017-03-01 08:26] LABS: ALB/GLOB RATIO 1.3 (1.0-2.1)
[2017-03-01] MEDS: Divalproex 500 mg DR Tab PO SCH ×2 (10:04→17:59)
[2017-03-01] MEDS: Metoprolol Succinate 50 mg XL Tab PO SCH (10:04)
[2017-03-01] MEDS: Enoxaparin 40 mg Syringe SC SCH (10:04)
--- NOTE | 2017-03-01 11:46 | CARD ---
APPROVED REPORT EKG Measurement Heart [id number] <Conclusion> Normal sinus rhythm Normal ECG
--- NOTE | 2017-03-01 13:36 | PCM.PYCHPN ---
Psychiatric Progress Note - Psychiatric Progress Note Patient seen today, length of contact: 15 min Patient Chief Complaint: "Can I go home" Problems Identified/Issues Discussed: The pt is seen, chart reviewed and case discussed. Patient was quite agitated and states that he wants to go home. Patient is awaiting to be seen by [facility] screener Medication Change: No Medical Record Reviewed: Yes Mental Status Examination - Cognitive Function Orientation: Person, Place Memory: Impaired Attention: Poor Concentration: Poor Association: Loose Fund of Knowledge: Poor - Mood Mood: Other (labile and agitated) - Affect Affect: Constricted (labile, odd) - Speech Speech: Loud (Soft to loud and incoherent at times ) - Formal Thought Process Formal Thought Process: Loosening of associations - Suicidal Ideation Suicidal Ideation: No - Homicidal Ideation Homicidal Ideation: No Goal/Treatment Plan - Goal/Treatment Plan Need for Continued Stay: Discharge may exacerbated symptoms, Severe functional impairment, Other (Still running very high FS) Progress Toward Problem(s) and Goals/Treatment Plan: Continue current management and treatment as per primary team Continue Abilify low dose for agitation, possible psychosis. Depakote for mood swings, agitation (he used it before) As needed medications Pt cannot sign out AMA yet. His judgment is poor and is unpredictable. Awaiting [facility] screener evaluation From psychiatry, nothing more to do at this time
[2017-03-01] MEDS ORDERED: (Novolin R) Insulin Human Regular 100 units/ml vial IV ONE (18:33)
--- NOTE | 2017-03-01 19:12 | PN ---
DATE: ENDOCRINOLOGY FOLLOWUP NOTE LOCATION: Room 359. SUBJECTIVE: This is a 56-year-old male with recent uncontrolled type 2 insulin-requiring diabetes, now being followed closely for metabolic management. He continues to have variable oral intake with supervening glycemic fluctuations and today, his glucose levels were low normal with a glucose of 58 mg/dL at noontime and supervening hyperglycemic accelerations and glucose values now over 500 mg/dL. His latest chemistries showed a BUN of 26, sodium 132, potassium 4.7, chloride 97, CO2 of 28, glucose 251, and creatinine 1.3. So, at this time, we will modify once again his basal and bolus insulin regimen and lower the NovoLog to 10 units subcu t.i.d. before meals to start today as ordered. We will also lower the basal insulin with Lantus to be given as 24 units subcu at bedtime daily to start tonight. We will continue the low-dose correction scale using NovoLog insulin as ordered. We will obtain serial chemistries and supplement accordingly as needed. We will follow. Brook Hernandez MD
[2017-03-01 21:42] LABS: ALB/GLOB RATIO 1.4 (1.0-2.1); ALBUMIN 3.6 g/dL (3.5-5.0); ALT/SGPT 44 U/L (21-72); AST/SGOT 37 U/L (17-59); BLOOD UREA NITROGEN 31 mg/dL (9-20); CALCIUM 8.9 mg/dl (8.6-10.4); GFR AFRICAN-AMERICAN > 60; GFR NON-AFRICAN AMERICAN > 60
[2017-03-01] MEDS ORDERED: (Lantus) Insulin Glargine, Recombinant SC SCH (22:00)
--- NOTE | 2017-03-02 07:08 | CP.PCM.PN ---
<Neno Smith - Last Filed: 03/02/17 16:15> Subjective - Date & Time of Evaluation Date of Evaluation: 03/02/17 Time of Evaluation: 07:30 - Subjective Subjective: Medicine progress note for Dr. Gricel Wong Patient seen and examined at bedside. Patient reports that he is doing well and feels good. No acute complaints at this time. Objective - Vital Signs/Intake and Output Vital Signs (last 24 hours): Temp Pulse Resp BP Pulse Ox 98.1 F 83 20 149/78 100 03/01/17 23:50 03/01/17 23:50 03/01/17 23:50 03/01/17 23:50 03/01/17 23:50 Intake and Output: 03/02/17 03/02/17 06:59 18:59 Intake Total 740 Balance 740 - Medications Medications: Current Medications Aripiprazole (Abilify) 5 mg PO DAILY [facility] Last Admin: 03/01/17 10:04 Dose: 5 mg Aspirin (Ecotrin) 81 mg PO DAILY [facility] Last Admin: 03/01/17 10:04 Dose: 81 mg Clopidogrel Bisulfate (Plavix) 75 mg PO DAILY [facility] Last Admin: 03/01/17 10:04 Dose: 75 mg Dextrose (Dextrose 50% Inj) 0 ml IV STAT PRN; Protocol PRN Reason: Hypoglycemia Protocol Dextrose (Glutose 15) 0 gm PO ONCE PRN; Protocol PRN Reason: Hypoglycemia Protocol Divalproex Sodium (Depakote Dr) 500 mg PO BID [facility] Last Admin: 03/01/17 17:59 Dose: 500 mg Enoxaparin Sodium (Lovenox) 40 mg SC DAILY [facility] Last Admin: 03/01/17 10:04 Dose: 40 mg Glucagon (Glucagen Diagnostic Kit) 0 mg IM STAT PRN; Protocol PRN Reason: Hypoglycemia Protocol Haloperidol (Haldol) 5 mg PO Q1H PRN PRN Reason: agitation max 4x/24h Last Admin: 02/27/17 21:45 Dose: 5 mg Haloperidol Lactate (Haldol) 5 mg IM Q1H PRN PRN Reason: aggression max 4x/24h Last Admin: 02/26/17 20:13 Dose: 5 mg Dextrose (Dextrose 5% In Water 1000 Ml) 1,000 mls @ 0 mls/hr IV .Q0M PRN; Protocol; Per Protocol PRN Reason: Hypoglycemia Protocol Insulin Aspart (Novolog) 0 unit SC ACHS [facility] PRN Reason: Protocol Last Admin: 03/01/17 21:57 Dose: Not Given Insulin Aspart (Novolog) 10 unit SC AC [facility] Last Admin: 03/01/17 17:16 Dose: 10 unit Insulin Glargine (Lantus) 24 unit SC HS [facility] Last Admin: 03/01/17 22:32 Dose: 24 units Lorazepam (Ativan) 1 mg PO Q4H PRN PRN Reason: severe agitation Last Admin: 02/27/17 17:15 Dose: 1 mg Metoprolol Succinate (Toprol Xl) 50 mg PO DAILY [facility] Last Admin: 03/01/17 10:04 Dose: 50 mg Rosuvastatin Calcium (Crestor) 10 mg PO HS [facility] Last Admin: 03/01/17 21:55 Dose: 10 mg - Labs Labs: 03/01/17 07:09 03/01/17 21:19 - Constitutional Appears: No Acute Distress - Head Exam Head Exam: ATRAUMATIC, NORMOCEPHALIC - Eye Exam Eye Exam: EOMI, Normal appearance - ENT Exam ENT Exam: Mucous Membranes Moist - Respiratory Exam Respiratory Exam: Clear to Ausculation Bilateral. absent: Rales, Rhonchi, Wheezes - Cardiovascular Exam Cardiovascular Exam: REGULAR RHYTHM, +S1, +S2 - GI/Abdominal Exam GI & Abdominal Exam: Soft, Normal Bowel Sounds. absent: Tenderness - Extremities Exam Extremities Exam: absent: Pedal Edema, Tenderness - Neurological Exam Neurological Exam: Alert, Awake - Psychiatric Exam Psychiatric exam: Normal Affect, Normal Mood - Skin Skin Exam: Dry, Intact, Normal Color, Warm Assessment and Plan - Assessment and Plan (Free Text) Plan: 1. Schizophrenia and Bipolar disorder * Psychiatry consulted, Dr. Burdick, help appreciated * Psych is recommending [facility] [place] for [place] * Per ED documentation, Dr De Guzman wants 2 consecutive glucose levels below 200 * Patient medically optimized * Management per psych team * [facility] screening denied the patient on 03/01/17 in the evening stating that his issue is a behavioral one not a psychiatric issue * Per Dr. Lindo, patient is stable for discharge from psychiatric perspective 2. History of Uncontrolled Diabetes Mellitus, non-compliant * Stable, afebrile * HgA1C 02/2017 - 13.4 * Accuchecks today range from 163-500, Serum glucose 676 * ABG showed pH 7.37 PO2 133 PCO2 19 HCO3 15.3 * Anion gap 16 * NS @ 150 cc/hr * CXR shows no active disease but evidence of COPD * F/U blood cx, urine cx, * UA shows 1+ protein, 3+glucose and 6-10 hyaline casts * procalcitonin, amylase, lipase were all unremarkable * Endocrine on consult, Dr Hernandez, help appreciated- Novolog 16 units SC TIDAC, Lantus 40 units SC QHS * Continue Low dose ISS, accuchecks ACHS * Continue Crestor 10mg PO daily * Will consider adding lisinopril for renal protection, however will hold in setting of hyperkalemia * Hypoglycemic protocol 3. Hyperkalemia * Potassium was 5.8 on admission, patient was given insulin * Resolved * Will continue to monitor 4. Normacytic Anemia * Chronic in nature, Hgb at baseline * No active bleeding at this time * Will continue to monitor 5. History of Coronary Artery Disease * Continue ASA and plavix daily 6. History of Hypertension * Continue Toprol XL 50mg PO daily 7. History of Hyperlipidemia * Increased Crestor to 10mg daily due to LDL given diabetic status * Lipid panel from 02/2017 * Triglycerides - 225 * Cholesterol - 209 * LDL - 101 * HDL - 56 Prophylactic measures * Lovenox 40mg SC daily Patient was medically optimized for transfer to [facility] for long-[place] care. Per psychiatry, he remains unable to competently make decisions and was screened for involuntary commitment at [facility]. However [facility] denied him stating that his issue was a behavioral one not a psychiatric one. Per Dr. Lindo, patient is stable for discharge from psychiatric perspective. antique auto museum maintenance worker is currently looking into placement options at [facility] in [place] where the patient previously stayed. Case DW Dr. Gricel Smith PGY-1 <Raymond Wong - Last Filed: 03/02/17 18:50> Objective - Vital Signs/Intake and Output Vital Signs (last 24 hours): Temp Pulse Resp BP Pulse Ox 98.2 F 81 20 157/89 H 100 03/02/17 15:16 03/02/17 15:16 03/02/17 15:16 03/02/17 15:16 03/02/17 15:16 Intake and Output: 03/02/17 03/02/17 06:59 18:59 Intake Total 740 450 Balance 740 450 - Medications Medications: Current Medications Aripiprazole (Abilify) 5 mg PO DAILY [facility] Last Admin: 03/02/17 10:44 Dose: 5 mg Aspirin (Ecotrin) 81 mg PO DAILY [facility] Last Admin: 03/02/17 10:42 Dose: 81 mg Clopidogrel Bisulfate (Plavix) 75 mg PO DAILY [facility] Last Admin: 03/02/17 10:42 Dose: 75 mg Dextrose (Dextrose 50% Inj) 0 ml IV STAT PRN; Protocol PRN Reason: Hypoglycemia Protocol Dextrose (Glutose 15) 0 gm PO ONCE PRN; Protocol PRN Reason: Hypoglycemia Protocol Divalproex Sodium (Depakote Dr) 500 mg PO BID [facility] Last Admin: 03/02/17 17:04 Dose: 500 mg Enoxaparin Sodium (Lovenox) 40 mg SC DAILY [facility] Last Admin: 03/02/17 10:41 Dose: 40 mg Glucagon (Glucagen Diagnostic Kit) 0 mg IM STAT PRN; Protocol PRN Reason: Hypoglycemia Protocol Haloperidol (Haldol) 5 mg PO Q1H PRN PRN Reason: agitation max 4x/24h Last Admin: 02/27/17 21:45 Dose: 5 mg Haloperidol Lactate (Haldol) 5 mg IM Q1H PRN PRN Reason: aggression max 4x/24h Last Admin: 02/26/17 20:13 Dose: 5 mg Dextrose (Dextrose 5% In Water 1000 Ml) 1,000 mls @ 0 mls/hr IV .Q0M PRN; Protocol; Per Protocol PRN Reason: Hypoglycemia Protocol Insulin Aspart (Novolog) 0 unit SC ACHS [facility] PRN Reason: Protocol Last Admin: 03/02/17 17:03 Dose: Not Given Insulin Aspart (Novolog) 12 unit SC AC [facility] Last Admin: 03/02/17 17:02 Dose: 12 unit Insulin Glargine (Lantus) 30 unit SC HS [facility] Lorazepam (Ativan) 1 mg PO Q4H PRN PRN Reason: severe agitation Last Admin: 02/27/17 17:15 Dose: 1 mg Metoprolol Succinate (Toprol Xl) 50 mg PO DAILY [facility] Last Admin: 03/02/17 10:42 Dose: 50 mg Rosuvastatin Calcium (Crestor) 10 mg PO HS [facility] Last Admin: 03/01/17 21:55 Dose: 10 mg - Labs Labs: 03/02/17 08:03 03/02/17 08:03 Attending/Attestation - Attestation I have personally seen and examined this patient.: Yes I have fully participated in the care of the patient.: Yes I have reviewed all pertinent clinical information, including history, physical exam and plan: Yes Notes (Text): 03/02/17 18:47 Hospitalist Progress Note Patient was seen and examined at 11:15 AM 03/02/17 359 A Exam, assessment and plan were thoroughly gone over with the resident Assessments: 1). Schizophrenia/Bipolar Disorder Arabellalicandelaria, Haldol PRN, Ativan PRN Psychiatry Dr. Magana/Guicho 2). DM 1 Aspart 12 units meals Lantus 30 units SC HS Hypoglycemic Protocol Aspart ISS ACHS Episodes of Hyperglycemia: patient continues to have sugar packets near his bed as well as sugary juices. Again, spoke with nurses and RUBBER MIXER (who is situated in this room that has 4 patients) to keep an eye on patient taking sugar filled snacks/drinks/fruit cups from the food center on the floor. 3). CAD/HF ASA, Plavix, Metoprolol, Crestor 4). HTN Metoprolol 5). HLD Crestor 5). Anemia Chronic Disease Monitor Hgb/Hct TSH and T4 are WNL Disposition: Patient is medical optimized for transfer to Psychiatry [facility]. Medicine Team spoke with Psychiatry Team on 02/28/[address] Lindo to contacted [facility]. Tube Sizer Operator Andrea was also made aware. However, [facility] did NOT accept patient. Tube Sizer Operator Andrea is working towards placing patient at [facility] in [place]. Raymond Wong D.O.
[2017-03-02 08:13] LABS: BASO % 0.5 % (0.0-2.0); EOS # 0.2 K/uL (0.0-0.7); HEMOGLOBIN 10.1 g/dL (12.0-18.0); LYMPH # 3.2 K/uL (1.0-4.3); LYMPH % 35.1 % (20.0-40.0); MEAN CORPUSCULAR HEMOGLOBIN 32.2 pg (27.0-31.0); MEAN CORPUSCULAR HGB CONC 35.4 g/dL (33.0-37.0); MEAN PLATELET VOLUME 7.7 fL (7.2-11.7); MONO # 0.5 K/uL (0.0-0.8); MONO % 5.8 % (0.0-10.0); NEUT # 5.1 K/uL (1.8-7.0); NEUT % 56.6 % (50.0-75.0); RBC 3.13 Mil/uL (4.40-5.90); RED CELL DISTRIBUTION WIDTH 13.1 % (11.5-14.5); WHITE BLOOD COUNT 9.1 K/uL (4.8-10.8)
[2017-03-02] MEDS: (Novolog) Insulin Aspart, Recombinant 100 u/ml 10 ml vial SC SCH ×7 (08:23→21:05)
[2017-03-02 09:24] LABS: ALB/GLOB RATIO 1.2 (1.0-2.1); ALBUMIN 3.5 g/dL (3.5-5.0); ALT/SGPT 38 U/L (21-72); AST/SGOT 25 U/L (17-59); BLOOD UREA NITROGEN 29 mg/dL (9-20); CALCIUM 8.5 mg/dl (8.6-10.4); GFR AFRICAN-AMERICAN > 60; GFR NON-AFRICAN AMERICAN > 60; MAGNESIUM 1.7 mg/dL (1.6-2.3)
[2017-03-02] MEDS: Enoxaparin 40 mg Syringe SC SCH (10:41)
[2017-03-02] MEDS: Metoprolol Succinate 50 mg XL Tab PO SCH (10:42)
[2017-03-02] MEDS: Divalproex 500 mg DR Tab PO SCH ×2 (10:44→17:04)
--- NOTE | 2017-03-02 13:30 | PCM.PYCHPN ---
Psychiatric Progress Note - Psychiatric Progress Note Patient seen today, length of contact: 15 min Patient Chief Complaint: I am feeling better Problems Identified/Issues Discussed: Patient seen and evaluated, chart reviewed and discussed with the nurse. Patient reports improvement in his mood and reports improvement in the anxiety symptoms. He denies any auditory or visual hallucinations. He remained calm and cooperative. He denies any feelings of hopelessness and helplessness. He is taking medication and denies any side effects. He needs more time for stabilization. Supportive therapy and psychoeducation were given. Medication Change: No Medical Record Reviewed: Yes Mental Status Examination - Cognitive Function Orientation: Person, Place Memory: Impaired Attention: WNL Concentration: WNL Association: WNL Fund of Knowledge: WNL - Mood Mood: Anxious - Affect Affect: Constricted - Speech Speech: Appropriate - Formal Thought Process Formal Thought Process: No Impairment - Suicidal Ideation Suicidal Ideation: No - Homicidal Ideation Homicidal Ideation: No Goal/Treatment Plan - Goal/Treatment Plan Need for Continued Stay: Other Progress Toward Problem(s) and Goals/Treatment Plan: Pt psychiatrically stable for discharge. - Smoking Cessation Smoking Cessation Initiated: No
[2017-03-02] MEDS ORDERED: (Lantus) Insulin Glargine, Recombinant SC SCH (22:00)
--- NOTE | 2017-03-03 01:13 | PN ---
DATE: LOCATION: Room 359 SUBJECTIVE: This is a 56-year-old male with recent uncontrolled type 2 insulin-requiring diabetes, now being followed closely for metabolic management. His oral intake remains quite variable at this time, but somehow has improved today as noted. His glucose values have ranged from 163 to 235 mg/dL. The latest chemistry shows a BUN of 29, sodium 128, potassium 4.9, chloride 94, CO2 is 28, glucose 239 and creatinine 1.0. So at this time we will modify once again his basal and bolus insulin regimen and increase the Lantus to 30 units subcu at bedtime daily to start tonight. We will also increase his NovoLog to 12 units subcu t.i.d. before meals as ordered. We will continue his NovoLog coverage scale with a very low dose algorithm to obviate hypoglycemia. He was extremely elevated actually last night with glucose levels ranging from 303 to over 500 mg/dL as noted. We will obtain serial chemistry and supplement accordingly as needed. We will follow with you. Brook Hernandez MD
[2017-03-03 07:56] LABS: BASO % 0.7 % (0.0-2.0); EOS # 0.1 K/uL (0.0-0.7); EOS % 2.2 % (0.0-4.0); HEMOGLOBIN 9.1 g/dL (12.0-18.0); LYMPH # 2.5 K/uL (1.0-4.3); LYMPH % 39.4 % (20.0-40.0); MEAN CELL VOLUME 90.2 fL (80.0-94.0); MEAN CORPUSCULAR HEMOGLOBIN 32.1 pg (27.0-31.0); MEAN CORPUSCULAR HGB CONC 35.5 g/dL (33.0-37.0); MEAN PLATELET VOLUME 7.5 fL (7.2-11.7); MONO # 0.7 K/uL (0.0-0.8); MONO % 10.1 % (0.0-10.0); NEUT # 3.1 K/uL (1.8-7.0); NEUT % 47.6 % (50.0-75.0); RBC 2.82 Mil/uL (4.40-5.90); RED CELL DISTRIBUTION WIDTH 12.9 % (11.5-14.5); WHITE BLOOD COUNT 6.4 K/uL (4.8-10.8)
[2017-03-03 07:58] LABS: ALB/GLOB RATIO 1.3 (1.0-2.1); ALBUMIN 3.2 g/dL (3.5-5.0); ALT/SGPT 37 U/L (21-72); AST/SGOT 26 U/L (17-59); BLOOD UREA NITROGEN 25 mg/dL (9-20); CALCIUM 8.6 mg/dl (8.6-10.4); GFR AFRICAN-AMERICAN > 60; GFR NON-AFRICAN AMERICAN > 60; MAGNESIUM 1.9 mg/dL (1.6-2.3)
[2017-03-03] MEDS: (Novolog) Insulin Aspart, Recombinant 100 u/ml 10 ml vial SC SCH ×7 (08:46→21:54)
[2017-03-03] MEDS: Divalproex 500 mg DR Tab PO SCH ×2 (09:03→18:27)
[2017-03-03] MEDS: Metoprolol Succinate 50 mg XL Tab PO SCH (09:04)
[2017-03-03] MEDS: Enoxaparin 40 mg Syringe SC SCH (09:04)
--- NOTE | 2017-03-03 14:03 | PN ---
ENDOCRINOLOGY FOLLOWUP NOTE LOCATION: Room 359. SUBJECTIVE: This is a 56-year-old male with recent uncontrolled type 2 insulin-requiring diabetes, now being followed closely for metabolic management. His glycemic levels are fluctuating also because of the variability of his oral intake as noted thereof. His glucose values today have ranged from the chemistry showing a BUN of 25, sodium 131, potassium 4.5, chloride 96, CO2 of 34, glucose . So at this time, we will modify once again his basal and bolus insulin regimen and we will also lower the Lantus to 24 units subcu at bedtime daily to start tonight. We will also modify the prandial insulin and lower the Novolog to 12 units subcu t.i.d. before meals as ordered. We will titrate incrementally as indicated to optimize metabolic control. We will follow. Brook Hernandez MD
--- NOTE | 2017-03-03 16:25 | CP.PCM.PN ---
Subjective - Date & Time of Evaluation Date of Evaluation: 03/03/17 Time of Evaluation: 09:30 - Subjective Subjective: Medicine progress note for Dr. Gricel Wong Patient seen and examined at bedside this morning. Patient reports no acute complaints at this time. Objective - Vital Signs/Intake and Output Vital Signs (last 24 hours): Temp Pulse Resp BP Pulse Ox 99.2 F 66 20 104/61 96 03/03/17 15:23 03/03/17 15:23 03/03/17 15:23 03/03/17 15:23 03/03/17 15:23 Intake and Output: 03/03/17 03/03/17 06:59 18:59 Intake Total 500 500 Output Total 500 Balance 0 500 - Medications Medications: Current Medications Aripiprazole (Abilify) 5 mg PO DAILY [facility] Last Admin: 03/03/17 09:04 Dose: 5 mg Aspirin (Ecotrin) 81 mg PO DAILY [facility] Last Admin: 03/03/17 09:04 Dose: 81 mg Clopidogrel Bisulfate (Plavix) 75 mg PO DAILY [facility] Last Admin: 03/03/17 09:04 Dose: 75 mg Dextrose (Dextrose 50% Inj) 0 ml IV STAT PRN; Protocol PRN Reason: Hypoglycemia Protocol Dextrose (Glutose 15) 0 gm PO ONCE PRN; Protocol PRN Reason: Hypoglycemia Protocol Divalproex Sodium (Depakote Dr) 500 mg PO BID [facility] Last Admin: 03/03/17 09:03 Dose: 500 mg Enoxaparin Sodium (Lovenox) 40 mg SC DAILY [facility] Last Admin: 03/03/17 09:04 Dose: 40 mg Glucagon (Glucagen Diagnostic Kit) 0 mg IM STAT PRN; Protocol PRN Reason: Hypoglycemia Protocol Haloperidol (Haldol) 5 mg PO Q1H PRN PRN Reason: agitation max 4x/24h Last Admin: 02/27/17 21:45 Dose: 5 mg Haloperidol Lactate (Haldol) 5 mg IM Q1H PRN PRN Reason: aggression max 4x/24h Last Admin: 02/26/17 20:13 Dose: 5 mg Dextrose (Dextrose 5% In Water 1000 Ml) 1,000 mls @ 0 mls/hr IV .Q0M PRN; Protocol; Per Protocol PRN Reason: Hypoglycemia Protocol Insulin Aspart (Novolog) 0 unit SC ACHS [facility] PRN Reason: Protocol Last Admin: 03/03/17 11:36 Dose: Not Given Insulin Aspart (Novolog) 8 unit SC AC [facility] Last Admin: 03/03/17 13:15 Dose: 8 unit Insulin Glargine (Lantus) 24 unit SC [facility] Lorazepam (Ativan) 1 mg PO Q4H PRN PRN Reason: severe agitation Last Admin: 02/27/17 17:15 Dose: 1 mg Metoprolol Succinate (Toprol Xl) 50 mg PO DAILY [facility] Last Admin: 03/03/17 09:04 Dose: 50 mg Rosuvastatin Calcium (Crestor) 10 mg PO HS [facility] Last Admin: 03/02/17 23:14 Dose: 10 mg - Labs Labs: 03/03/17 07:14 03/03/17 07:14 - Constitutional Appears: No Acute Distress - Head Exam Head Exam: ATRAUMATIC, NORMOCEPHALIC - Eye Exam Eye Exam: EOMI, Normal appearance - ENT Exam ENT Exam: Mucous Membranes Moist - Respiratory Exam Respiratory Exam: Clear to Ausculation Bilateral. absent: Rales, Rhonchi, Wheezes - Cardiovascular Exam Cardiovascular Exam: REGULAR RHYTHM, +S1, +S2 - GI/Abdominal Exam GI & Abdominal Exam: Soft, Normal Bowel Sounds. absent: Distended, Tenderness - Extremities Exam Extremities Exam: absent: Pedal Edema, Tenderness - Neurological Exam Neurological Exam: Alert, Awake - Psychiatric Exam Psychiatric exam: Normal Affect, Normal Mood - Skin Skin Exam: Dry, Warm Assessment and Plan - Assessment and Plan (Free Text) Plan: 1. Schizophrenia and Bipolar disorder * Psychiatry consulted, Dr. Burdick, help appreciated * Psych is [place] [facility] [place] * Per ED documentation, Dr De Guzman wants 2 consecutive glucose levels below 200 * Patient medically optimized * Management per psych team * [facility] [place] 03/01/17 in the evening stating that his issue is a behavioral one not a psychiatric issue * Per Dr. Lindo, patient is stable for discharge from psychiatric perspective 2. History of Uncontrolled Diabetes Mellitus, non-compliant * Stable, afebrile * HgA1C 02/2017 - 13.4 * Accuchecks today range from 163-500, Serum glucose 676 * ABG showed pH 7.37 PO2 133 PCO2 19 HCO3 15.3 * Anion gap 16 * NS @ 150 cc/hr * CXR shows no active disease but evidence of COPD * F/U blood cx, urine cx, * UA shows 1+ protein, 3+glucose and 6-10 hyaline casts * procalcitonin, amylase, lipase were all unremarkable * Endocrine on consult, Dr Hernandez, help appreciated- Novolog 12 units SC TIDAC, Lantus 24 units SC QHS * Continue Low dose ISS, accuchecks ACHS * Continue Crestor 10mg PO daily * Will consider adding lisinopril for renal protection, however will hold in setting of hyperkalemia * Hypoglycemic protocol 3. Hyperkalemia * Potassium was 5.8 on admission, patient was given insulin * Resolved * Will continue to monitor 4. Normacytic Anemia * Chronic in nature, Hgb at baseline * No active bleeding at this time * Will continue to monitor 5. History of Coronary Artery Disease * Continue ASA and plavix daily 6. History of Hypertension * Continue Toprol XL 50mg PO daily 7. History of Hyperlipidemia * Increased Crestor to 10mg daily due to LDL given diabetic status * Lipid panel from 02/2017 * Triglycerides - 225 * Cholesterol - 209 * LDL - 101 * HDL - 56 Prophylactic measures * Lovenox 40mg SC daily Patient was medically optimized for transfer [place] [facility] [place]. Per psychiatry, he remains unable to competently make decisions and was screened for involuntary commitment [place] [facility] [place] [facility] [place] stating that his issue was a behavioral one not a psychiatric one. Per Dr. Lindo, patient is stable for discharge from psychiatric perspective. Per social insurance adviser, [facility] in [place] where the patient previously stayed has denied him stating that his issue is more of a psychiatric one rather than the patient being unable to care for himself. Case DW Dr. Gricel Smith PGY-1
[2017-03-03] MEDS ORDERED: (Lantus) Insulin Glargine, Recombinant SC SCH (22:00)
--- NOTE | 2017-03-04 01:38 | CP.PCM.PN ---
<Tejas Garcia - Last Filed: 03/04/17 01:36> Subjective - Date & Time of Evaluation Date of Evaluation: 03/04/17 Time of Evaluation: 01:36 (`) - Subjective Subjective: Medicine progress note for Dr. Gricel Wong Patient seen and examined at bedside this morning. Patient reports no acute complaints at this time. Objective - Vital Signs/Intake and Output Vital Signs (last 24 hours): Temp Pulse Resp BP Pulse Ox 98.9 F 81 20 133/74 81 L 03/03/17 23:52 03/03/17 23:52 03/03/17 23:52 03/03/17 23:52 03/03/17 23:52 Intake and Output: 03/03/17 03/04/17 18:59 06:59 Intake Total 500 Balance 500 - Medications Medications: Current Medications Aripiprazole (Abilify) 5 mg PO DAILY [facility] Last Admin: 03/03/17 09:04 Dose: 5 mg Aspirin (Ecotrin) 81 mg PO DAILY [facility] Last Admin: 03/03/17 09:04 Dose: 81 mg Clopidogrel Bisulfate (Plavix) 75 mg PO DAILY [facility] Last Admin: 03/03/17 09:04 Dose: 75 mg Dextrose (Dextrose 50% Inj) 0 ml IV STAT PRN; Protocol PRN Reason: Hypoglycemia Protocol Dextrose (Glutose 15) 0 gm PO ONCE PRN; Protocol PRN Reason: Hypoglycemia Protocol Divalproex Sodium (Depakote Dr) 500 mg PO BID [facility] Last Admin: 03/03/17 18:27 Dose: 500 mg Enoxaparin Sodium (Lovenox) 40 mg SC DAILY [facility] Last Admin: 03/03/17 09:04 Dose: 40 mg Glucagon (Glucagen Diagnostic Kit) 0 mg IM STAT PRN; Protocol PRN Reason: Hypoglycemia Protocol Haloperidol (Haldol) 5 mg PO Q1H PRN PRN Reason: agitation max 4x/24h Last Admin: 02/27/17 21:45 Dose: 5 mg Haloperidol Lactate (Haldol) 5 mg IM Q1H PRN PRN Reason: aggression max 4x/24h Last Admin: 02/26/17 20:13 Dose: 5 mg Dextrose (Dextrose 5% In Water 1000 Ml) 1,000 mls @ 0 mls/hr IV .Q0M PRN; Protocol; Per Protocol PRN Reason: Hypoglycemia Protocol Insulin Aspart (Novolog) 0 unit SC ACHS [facility] PRN Reason: Protocol Last Admin: 03/03/17 21:54 Dose: Not Given Insulin Aspart (Novolog) 8 unit SC AC [facility] Last Admin: 03/03/17 18:01 Dose: Not Given Insulin Glargine (Lantus) 24 unit SC HS [facility] Last Admin: 03/03/17 22:05 Dose: Not Given Lorazepam (Ativan) 1 mg PO Q4H PRN PRN Reason: severe agitation Last Admin: 02/27/17 17:15 Dose: 1 mg Metoprolol Succinate (Toprol Xl) 50 mg PO DAILY [facility] Last Admin: 03/03/17 09:04 Dose: 50 mg Rosuvastatin Calcium (Crestor) 10 mg PO [facility] Last Admin: 03/03/17 22:04 Dose: 10 mg - Labs Labs: 03/03/17 07:14 03/03/17 07:14 - Additional Findings Additional findings: - Constitutional Appears: No Acute Distress - Head Exam Head Exam: ATRAUMATIC, NORMOCEPHALIC - Eye Exam Eye Exam: EOMI, Normal appearance - ENT Exam ENT Exam: Mucous Membranes Moist - Respiratory Exam Respiratory Exam: Clear to Ausculation Bilateral. absent: Rales, Rhonchi, Wheezes - Cardiovascular Exam Cardiovascular Exam: REGULAR RHYTHM, +S1, +S2 - GI/Abdominal Exam GI & Abdominal Exam: Soft, Normal Bowel Sounds. absent: Distended, Tenderness - Extremities Exam Extremities Exam: absent: Pedal Edema, Tenderness - Neurological Exam Neurological Exam: Alert, Awake - Psychiatric Exam Psychiatric exam: Normal Affect, Normal Mood - Skin Skin Exam: Dry, Warm Assessment and Plan - Assessment and Plan (Free Text) Assessment: 1. Schizophrenia and Bipolar disorder * Psychiatry consulted, Dr. Burdick, help appreciated * Psych is recommending [facility] evaluation for extermination supervisor care * Per ED documentation, Dr De Guzman wants 2 consecutive glucose levels below 200 * Patient medically optimized * Management per psych team * [facility] screening denied the patient on 03/01/17 in the evening stating that his issue is a behavioral one not a psychiatric issue * Per Dr. Lindo, patient is stable for discharge from psychiatric perspective 2. History of Uncontrolled Diabetes Mellitus, non-compliant * Stable, afebrile * HgA1C 02/2017 - 13.4 * Accuchecks today range from 163-500, Serum glucose 676 * ABG showed pH 7.37 PO2 133 PCO2 19 HCO3 15.3 * Anion gap 16 * NS @ 150 cc/hr * CXR shows no active disease but evidence of COPD * F/U blood cx, urine cx, * UA shows 1+ protein, 3+glucose and 6-10 hyaline casts * procalcitonin, amylase, lipase were all unremarkable * Endocrine on consult, Dr Hernandez, help appreciated- Novolog 12 units SC TIDAC, Lantus 24 units SC QHS * Continue Low dose ISS, accuchecks ACHS * Continue Crestor 10mg PO daily * Will consider adding lisinopril for renal protection, however will hold in setting of hyperkalemia * Hypoglycemic protocol 3. Hyperkalemia * Potassium was 5.8 on admission, patient was given insulin * Resolved * Will continue to monitor 4. Normacytic Anemia * Chronic in nature, Hgb at baseline * No active bleeding at this time * Will continue to monitor 5. History of Coronary Artery Disease * Continue ASA and plavix daily 6. History of Hypertension * Continue Toprol XL 50mg PO daily 7. History of Hyperlipidemia * Increased Crestor to 10mg daily due to LDL given diabetic status * Lipid panel from 02/2017 * Triglycerides - 225 * Cholesterol - 209 * LDL - 101 * HDL - 56 Prophylactic measures * Lovenox 40mg SC daily Patient was medically optimized for transfer to [facility] for long-term care. Per psychiatry, he remains unable to competently make decisions and was screened for involuntary commitment at [facility]. However [facility] denied him stating that his issue was a behavioral one not a psychiatric one. Per Dr. Lindo, patient is stable for discharge from psychiatric perspective. Per social scientist, [facility] in [place] where the patient previously stayed has denied him stating that his issue is more of a psychiatric one rather than the patient being unable to care for himself. <Raymond Wong - Last Filed: 03/04/17 19:15> Objective - Vital Signs/Intake and Output Vital Signs (last 24 hours): Temp Pulse Resp BP Pulse Ox 98.4 F 91 H 20 166/79 H 100 03/04/17 15:30 03/04/17 15:30 03/04/17 15:30 03/04/17 15:30 03/04/17 15:30 Intake and Output: 12/30/17 12/31/17 18:59 06:59 Intake Total 400 Balance 400 - Medications Medications: Current Medications Aripiprazole (Abilify) 5 mg PO DAILY [facility] Last Admin: 03/04/17 10:21 Dose: 5 mg Aspirin (Ecotrin) 81 mg PO DAILY [facility] Last Admin: 03/04/17 10:21 Dose: 81 mg Clopidogrel Bisulfate (Plavix) 75 mg PO DAILY [facility] Last Admin: 03/04/17 10:21 Dose: 75 mg Dextrose (Dextrose 50% Inj) 0 ml IV STAT PRN; Protocol PRN Reason: Hypoglycemia Protocol Dextrose (Glutose 15) 0 gm PO ONCE PRN; Protocol PRN Reason: Hypoglycemia Protocol Divalproex Sodium (Depakote Dr) 500 mg PO BID [facility] Last Admin: 03/04/17 10:20 Dose: 500 mg Enoxaparin Sodium (Lovenox) 40 mg SC DAILY [facility] Last Admin: 03/04/17 10:20 Dose: 40 mg Glucagon (Glucagen Diagnostic Kit) 0 mg IM STAT PRN; Protocol PRN Reason: Hypoglycemia Protocol Haloperidol (Haldol) 5 mg PO Q1H PRN PRN Reason: agitation max 4x/24h Last Admin: 02/27/17 21:45 Dose: 5 mg Haloperidol Lactate (Haldol) 5 mg IM Q1H PRN PRN Reason: aggression max 4x/24h Last Admin: 02/26/17 20:13 Dose: 5 mg Dextrose (Dextrose 5% In Water 1000 Ml) 1,000 mls @ 0 mls/hr IV .Q0M PRN; Protocol; Per Protocol PRN Reason: Hypoglycemia Protocol Insulin Aspart (Novolog) 0 unit SC ACHS [facility] PRN Reason: Protocol Last Admin: 03/04/17 16:46 Dose: Not Given Insulin Aspart (Novolog) 10 unit SC AC [facility] Last Admin: 03/04/17 16:55 Dose: Not Given Insulin Glargine (Lantus) 30 unit SC HS [facility] Lorazepam (Ativan) 1 mg PO Q4H PRN PRN Reason: severe agitation Last Admin: 02/27/17 17:15 Dose: 1 mg Metoprolol Succinate (Toprol Xl) 50 mg PO DAILY [facility] Last Admin: 03/04/17 10:21 Dose: 50 mg Rosuvastatin Calcium (Crestor) 10 mg PO HS [facility] Last Admin: 03/03/17 22:04 Dose: 10 mg - Labs Labs: 03/04/17 07:52 03/04/17 07:52 Attending/Attestation - Attestation I have personally seen and examined this patient.: Yes I have fully participated in the care of the patient.: Yes I have reviewed all pertinent clinical information, including history, physical exam and plan: Yes Notes (Text): 03/04/17 19:11 Hospitalist Progress Note Patient was seen and examined at 4:40 PM 03/04/17 359 A Exam, assessment and plan were thoroughly gone over with the resident Assessments: 1). Schizophrenia/Bipolar Disorder Kj, Reta PRN, Ativan PRN Psychiatry Dr. Magana/Guicho 2). DM 1 Aspart 10 units AC meals Lantus 30 units SC HS Hypoglycemic Protocol Aspart ISS ACHS Episodes of Hyperglycemia continue and likely secondary to patient noncompliance with instructions concerning snacking: patient continues to have sugary juices and fruits. Again, spoke with nurses and VAULT CASHIER (who is situated in this room that has 4 patients) to keep an eye on patient taking sugar filled snacks/drinks/fruit cups from the food center on the floor. 3). CAD/HF ASA, Plavix, Metoprolol, Crestor 4). HTN Metoprolol 5). HLD Crestor 5). Anemia Chronic Disease Monitor Hgb/Hct TSH and T4 are WNL Disposition: Patient is medical optimized for transfer to Psychiatry [facility]. Medicine Team spoke with Psychiatry Team on 02/28/[address] Lindo to contacted [facility]. Padder Cushion Andrea was also made aware. However, [facility] did NOT accept patient. Social Ankita Medina is worked towards placing patient at [facility] in [place], where he was before his signed him out from there. However, [facility] has denied patient. Social Ankita Medina continues to look for placement for this patient. Raymond Wong D.O.
[2017-03-04 07:59] LABS: BASO # 0.1 K/uL (0.0-0.2); BASO % 0.7 % (0.0-2.0); EOS # 0.2 K/uL (0.0-0.7); HEMOGLOBIN 10.2 g/dL (12.0-18.0); LYMPH # 3.2 K/uL (1.0-4.3); LYMPH % 41.9 % (20.0-40.0); MEAN CELL VOLUME 91.5 fL (80.0-94.0); MEAN CORPUSCULAR HEMOGLOBIN 31.5 pg (27.0-31.0); MEAN CORPUSCULAR HGB CONC 34.5 g/dL (33.0-37.0); MEAN PLATELET VOLUME 7.4 fL (7.2-11.7); MONO # 0.7 K/uL (0.0-0.8); MONO % 8.8 % (0.0-10.0); NEUT # 3.6 K/uL (1.8-7.0); NEUT % 46.6 % (50.0-75.0); NRBC % 0.1 % (0.0-2.0); RBC 3.25 Mil/uL (4.40-5.90); RED CELL DISTRIBUTION WIDTH 13.2 % (11.5-14.5); WHITE BLOOD COUNT 7.7 K/uL (4.8-10.8)
[2017-03-04] MEDS: (Novolog) Insulin Aspart, Recombinant 100 u/ml 10 ml vial SC SCH ×7 (08:05→21:23)
[2017-03-04 08:58] LABS: ALB/GLOB RATIO 1.5 (1.0-2.1); ALBUMIN 3.5 g/dL (3.5-5.0); ALT/SGPT 39 U/L (21-72); AST/SGOT 32 U/L (17-59); BLOOD UREA NITROGEN 26 mg/dL (9-20); CALCIUM 8.1 mg/dl (8.6-10.4); GFR AFRICAN-AMERICAN > 60; GFR NON-AFRICAN AMERICAN > 60; MAGNESIUM 1.9 mg/dL (1.6-2.3)
[2017-03-04] MEDS: Enoxaparin 40 mg Syringe SC SCH (10:20)
[2017-03-04] MEDS: Divalproex 500 mg DR Tab PO SCH ×3 (10:20→21:31)
[2017-03-04] MEDS: Metoprolol Succinate 50 mg XL Tab PO SCH (10:21)
--- NOTE | 2017-03-04 13:02 | PN ---
DATE: ENDOCRINOLOGY FOLLOWUP NOTE LOCATION: Room 359. SUBJECTIVE: This is a 56-year-old male with recent uncontrolled type 2 insulin-requiring diabetes with extremes of glycemic fluctuations as noted overnight with glucose levels actually in the 40s yesterday at dinnertime and overnight had hyperglycemic accelerations with glucose levels ranging from 279 to 337 mg/dL. His latest chemistry showed the BUN of 26, sodium 129, potassium 5.1, chloride 95, CO2 of 28, glucose 337, and creatinine 1.1. So, at this time, we will modify once again his basal and bolus insulin regimen and increase the Lantus to 30 units subcutaneously at bedtime daily to start tonight. We will also titrate his NovoLog to 10 units subcutaneously t.i.d. before meals to start at lunchtime today as ordered. We will obtain serial chemistries and supplement accordingly as need. We will also continue the low-dose correction scale using NovoLog insulin as given. We will follow. Brook Hernandez MD
[2017-03-04] MEDS: (Lantus) Insulin Glargine, Recombinant SC SCH (21:22)
--- NOTE | 2017-03-05 00:52 | CP.PCM.PN ---
<Tejas Garcia R - Last Filed: 03/05/17 00:50> Subjective - Date & Time of Evaluation Date of Evaluation: 03/05/17 Time of Evaluation: 00:50 - Subjective Subjective: Medicine progress note for Dr. Gricel Wong Patient seen and examined at bedside this morning. He is eating well, sleeping well and able to ambulate without difficulty. Patient reports no acute complaints at this time. Objective - Vital Signs/Intake and Output Vital Signs (last 24 hours): Temp Pulse Resp BP Pulse Ox 98.3 F 87 20 168/84 H 100 03/04/17 23:28 03/04/17 23:28 03/04/17 23:28 03/04/17 23:28 03/04/17 23:28 Intake and Output: 03/04/17 03/05/17 18:59 06:59 Intake Total 400 500 Balance 400 500 - Medications Medications: Current Medications Aripiprazole (Abilify) 5 mg PO DAILY [facility] Last Admin: 03/04/17 10:21 Dose: 5 mg Aspirin (Ecotrin) 81 mg PO DAILY [facility] Last Admin: 03/04/17 10:21 Dose: 81 mg Clopidogrel Bisulfate (Plavix) 75 mg PO DAILY [facility] Last Admin: 03/04/17 10:21 Dose: 75 mg Dextrose (Dextrose 50% Inj) 0 ml IV STAT PRN; Protocol PRN Reason: Hypoglycemia Protocol Dextrose (Glutose 15) 0 gm PO ONCE PRN; Protocol PRN Reason: Hypoglycemia Protocol Divalproex Sodium (Depakote Dr) 500 mg PO BID [facility] Last Admin: 03/04/17 21:31 Dose: 500 mg Enoxaparin Sodium (Lovenox) 40 mg SC DAILY [facility] Last Admin: 03/04/17 10:20 Dose: 40 mg Glucagon (Glucagen Diagnostic Kit) 0 mg IM STAT PRN; Protocol PRN Reason: Hypoglycemia Protocol Haloperidol (Haldol) 5 mg PO Q1H PRN PRN Reason: agitation max 4x/24h Last Admin: 02/27/17 21:45 Dose: 5 mg Haloperidol Lactate (Haldol) 5 mg IM Q1H PRN PRN Reason: aggression max 4x/24h Last Admin: 02/26/17 20:13 Dose: 5 mg Dextrose (Dextrose 5% In Water 1000 Ml) 1,000 mls @ 0 mls/hr IV .Q0M PRN; Protocol; Per Protocol PRN Reason: Hypoglycemia Protocol Insulin Aspart (Novolog) 0 unit SC ACHS [facility] PRN Reason: Protocol Last Admin: 03/04/17 21:23 Dose: 3 unit Insulin Aspart (Novolog) 10 unit SC AC [facility] Last Admin: 03/04/17 16:55 Dose: Not Given Insulin Glargine (Lantus) 30 unit SC HS [facility] Last Admin: 03/04/17 21:22 Dose: 30 units Lorazepam (Ativan) 1 mg PO Q4H PRN PRN Reason: severe agitation Last Admin: 02/27/17 17:15 Dose: 1 mg Metoprolol Succinate (Toprol Xl) 50 mg PO DAILY [facility] Last Admin: 03/04/17 10:21 Dose: 50 mg Rosuvastatin Calcium (Crestor) 10 mg PO HS [facility] Last Admin: 03/04/17 21:21 Dose: 10 mg - Labs Labs: 03/04/17 07:52 03/04/17 07:52 - Additional Findings Additional findings: - Constitutional Appears: No Acute Distress - Head Exam Head Exam: ATRAUMATIC, NORMOCEPHALIC - Eye Exam Eye Exam: EOMI, Normal appearance - ENT Exam ENT Exam: Mucous Membranes Moist - Respiratory Exam Respiratory Exam: Clear to Ausculation Bilateral. absent: Rales, Rhonchi, Wheezes - Cardiovascular Exam Cardiovascular Exam: REGULAR RHYTHM, +S1, +S2 - GI/Abdominal Exam GI & Abdominal Exam: Soft, Normal Bowel Sounds. absent: Distended, Tenderness - Extremities Exam Extremities Exam: absent: Pedal Edema, Tenderness - Neurological Exam Neurological Exam: Alert, Awake - Psychiatric Exam Psychiatric exam: Normal Affect, Normal Mood - Skin Skin Exam: Dry, Warm Assessment and Plan - Assessment and Plan (Free Text) Assessment: 1. Schizophrenia and Bipolar disorder * Psychiatry consulted, Dr. Burdick, help appreciated * Psych is recommending [facility] [place] termite treater helper care * Per ED documentation, Dr De Guzman wants 2 consecutive glucose levels below 200 * Patient medically optimized * Management per psych team * [facility] screening denied the patient on 03/01/17 in the evening stating that his issue is a behavioral one not a psychiatric issue * Per Dr. Lindo, patient is stable for discharge from psychiatric perspective 2. History of Uncontrolled Diabetes Mellitus, non-compliant * Stable, afebrile * HgA1C 02/2017 - 13.4 * Accuchecks today range from 163-500, Serum glucose 676 * ABG showed pH 7.37 PO2 133 PCO2 19 HCO3 15.3 * Anion gap 16 * NS @ 150 cc/hr * CXR shows no active disease but evidence of COPD * F/U blood cx, urine cx, * UA shows 1+ protein, 3+glucose and 6-10 hyaline casts * procalcitonin, amylase, lipase were all unremarkable * Endocrine on consult, Dr Hernandez, help appreciated- Novolog 12 units SC TIDAC, Lantus 24 units SC QHS * Continue Low dose ISS, accuchecks ACHS * Continue Crestor 10mg PO daily * Will consider adding lisinopril for renal protection, however will hold in setting of hyperkalemia * Hypoglycemic protocol 3. Hyperkalemia * Potassium was 5.8 on admission, patient was given insulin * Resolved * Will continue to monitor 4. Normacytic Anemia * Chronic in nature, Hgb at baseline * No active bleeding at this time * Will continue to monitor 5. History of Coronary Artery Disease * Continue ASA and plavix daily 6. History of Hypertension * Continue Toprol XL 50mg PO daily 7. History of Hyperlipidemia * Increased Crestor to 10mg daily due to LDL given diabetic status * Lipid panel from 02/2017 * Triglycerides - 225 * Cholesterol - 209 * LDL - 101 * HDL - 56 Prophylactic measures * Lovenox 40mg SC daily Disposition: Patient is medical optimized for transfer to Psychiatry [facility]. Medicine Team spoke with Psychiatry Team on 02/28/[address] Lindo to contacted [facility]. Bdr Andrea was also made aware. However, [facility] did NOT accept patient. Social Ankita Medina is worked towards placing patient at [facility] in [place], where he was before his signed him out from there. However, [facility] has denied patient. Bdr Andrea continues to look for placement for this patient. <Raymond Wong - Last Filed: 03/05/17 19:58> Objective - Vital Signs/Intake and Output Vital Signs (last 24 hours): Temp Pulse Resp BP Pulse Ox 98.6 F 81 20 165/77 H 100 03/05/17 15:00 03/05/17 15:00 03/05/17 15:00 03/05/17 15:00 03/05/17 15:00 - Medications Medications: Current Medications Aripiprazole (Abilify) 5 mg PO DAILY [facility] Last Admin: 03/05/17 09:30 Dose: 5 mg Aspirin (Ecotrin) 81 mg PO DAILY [facility] Last Admin: 03/05/17 09:30 Dose: 81 mg Clopidogrel Bisulfate (Plavix) 75 mg PO DAILY [facility] Last Admin: 03/05/17 09:30 Dose: 75 mg Dextrose (Dextrose 50% Inj) 0 ml IV STAT PRN; Protocol PRN Reason: Hypoglycemia Protocol Dextrose (Glutose 15) 0 gm PO ONCE PRN; Protocol PRN Reason: Hypoglycemia Protocol Divalproex Sodium (Depakote Dr) 500 mg PO BID [facility] Last Admin: 03/05/17 17:52 Dose: 500 mg Enoxaparin Sodium (Lovenox) 40 mg SC DAILY [facility] Last Admin: 03/05/17 09:30 Dose: 40 mg Glucagon (Glucagen Diagnostic Kit) 0 mg IM STAT PRN; Protocol PRN Reason: Hypoglycemia Protocol Haloperidol (Haldol) 5 mg PO Q1H PRN PRN Reason: agitation max 4x/24h Last Admin: 03/05/17 17:52 Dose: 5 mg Haloperidol Lactate (Haldol) 5 mg IM Q1H PRN PRN Reason: aggression max 4x/24h Last Admin: 02/26/17 20:13 Dose: 5 mg Dextrose (Dextrose 5% In Water 1000 Ml) 1,000 mls @ 0 mls/hr IV .Q0M PRN; Protocol; Per Protocol PRN Reason: Hypoglycemia Protocol Insulin Aspart (Novolog) 0 unit SC ACHS [facility] PRN Reason: Protocol Last Admin: 03/05/17 16:30 Dose: Not Given Insulin Aspart (Novolog) 10 unit SC AC [facility] Last Admin: 03/05/17 16:30 Dose: 10 unit Insulin Glargine (Lantus) 30 unit SC HS [facility] Last Admin: 03/04/17 21:22 Dose: 30 units Lorazepam (Ativan) 1 mg PO Q4H PRN PRN Reason: severe agitation Last Admin: 03/05/17 14:23 Dose: 1 mg Metoprolol Succinate (Toprol Xl) 50 mg PO DAILY [facility] Last Admin: 03/05/17 09:30 Dose: 50 mg Rosuvastatin Calcium (Crestor) 10 mg PO HS [facility] Last Admin: 03/04/17 21:21 Dose: 10 mg - Labs Labs: 03/05/17 07:43 03/05/17 07:43 Attending/Attestation - Attestation I have personally seen and examined this patient.: Yes I have fully participated in the care of the patient.: Yes I have reviewed all pertinent clinical information, including history, physical exam and plan: Yes Notes (Text): 03/05/17 19:57 Hospitalist Progress Note Patient was seen and examined at 5:15 PM 03/05/17 359 A Exam, assessment and plan were thoroughly gone over with the resident Assessments: 1). Schizophrenia/Bipolar Disorder Kj, Reta PRN, Ativan PRN Psychiatry Dr. Magana/Guicho 2). DM 1 Aspart 10 units AC meals Lantus 30 units SC HS Hypoglycemic Protocol Aspart ISS ACHS Episodes of Hyperglycemia continue and likely secondary to patient noncompliance with instructions concerning snacking: patient continues to have sugary juices and fruits. Again on 03/04/17, spoke with nurses and DRAW HAND (who is situated in this room that has 4 patients) to keep an eye on patient taking sugar filled snacks/drinks/fruit cups from the food center on the floor. Blood Glucose better on 03/05/17. 3). CAD/HF ASA, Plavix, Metoprolol, Crestor 4). HTN Metoprolol 5). HLD Crestor 5). Anemia Chronic Disease Monitor Hgb/Hct TSH and T4 are WNL Disposition: Patient is medical optimized for transfer to [facility]iat[facility]. Medicine Team spoke with Psychiatry Team on 02/28/[address] Lindo to contacted [facility]. Bdr Andrea was also made aware. However, [facility] did NOT accept patient. Social Ankita Medina is worked towards placing patient at [facility] in [place], where he was before his signed him out from there. However, [facility] has denied patient. Social Ankita Medina continues to look for placement for this patient. Raymond Wong D.O.
[2017-03-05] MEDS: (Novolog) Insulin Aspart, Recombinant 100 u/ml 10 ml vial SC SCH ×7 (07:30→22:30)
[2017-03-05 07:53] LABS: BASO # 0.1 K/uL (0.0-0.2); BASO % 0.6 % (0.0-2.0); EOS # 0.2 K/uL (0.0-0.7); EOS % 1.5 % (0.0-4.0); HEMOGLOBIN 9.7 g/dL (12.0-18.0); LYMPH # 4.9 K/uL (1.0-4.3); LYMPH % 42.2 % (20.0-40.0); MEAN CORPUSCULAR HEMOGLOBIN 31.6 pg (27.0-31.0); MEAN CORPUSCULAR HGB CONC 34.7 g/dL (33.0-37.0); MEAN PLATELET VOLUME 7.1 fL (7.2-11.7); MONO # 0.9 K/uL (0.0-0.8); NEUT # 5.5 K/uL (1.8-7.0); NEUT % 47.7 % (50.0-75.0); RBC 3.09 Mil/uL (4.40-5.90); RED CELL DISTRIBUTION WIDTH 13.3 % (11.5-14.5); WHITE BLOOD COUNT 11.6 K/uL (4.8-10.8)
[2017-03-05 08:50] LABS: ALB/GLOB RATIO 1.5 (1.0-2.1); ALBUMIN 4.5 g/dL (3.5-5.0); ALT/SGPT 48 U/L (21-72); AST/SGOT 38 U/L (17-59); BLOOD UREA NITROGEN 35 mg/dL (9-20); CALCIUM 9.4 mg/dl (8.6-10.4); GFR AFRICAN-AMERICAN > 60; GFR NON-AFRICAN AMERICAN > 60; MAGNESIUM 2.1 mg/dL (1.6-2.3)
[2017-03-05] MEDS: Metoprolol Succinate 50 mg XL Tab PO SCH (09:30)
[2017-03-05] MEDS: Enoxaparin 40 mg Syringe SC SCH (09:30)
[2017-03-05] MEDS: Divalproex 500 mg DR Tab PO SCH ×2 (09:31→17:52)
--- NOTE | 2017-03-05 19:55 | CP.PCM.PCO ---
Physician Communication Note - Physician Communication Note Physician Communication Note: Patient CAN NOT sign AMA
[2017-03-05] MEDS: (Lantus) Insulin Glargine, Recombinant SC SCH (22:30)
--- NOTE | 2017-03-06 03:09 | CP.PCM.PN ---
<Neno Smith - Last Filed: 03/06/17 06:58> Subjective - Date & Time of Evaluation Date of Evaluation: 03/06/17 Time of Evaluation: 06:20 - Subjective Subjective: Medicine progress note for Dr. Saavedra Patient seen and examined at bedside. No acute complaints at this time. Patient is requesting to go home. Objective - Vital Signs/Intake and Output Vital Signs (last 24 hours): Temp Pulse Resp BP Pulse Ox 98.4 F 83 20 123/69 99 03/06/17 00:28 03/06/17 00:28 03/06/17 00:28 03/06/17 00:28 03/06/17 00:28 Intake and Output: 03/05/17 03/06/17 18:59 06:59 Intake Total 300 Balance 300 - Medications Medications: Current Medications Aripiprazole (Abilify) 5 mg PO DAILY [facility] Last Admin: 03/05/17 09:30 Dose: 5 mg Aspirin (Ecotrin) 81 mg PO DAILY [facility] Last Admin: 03/05/17 09:30 Dose: 81 mg Clopidogrel Bisulfate (Plavix) 75 mg PO DAILY [facility] Last Admin: 03/05/17 09:30 Dose: 75 mg Dextrose (Dextrose 50% Inj) 0 ml IV STAT PRN; Protocol PRN Reason: Hypoglycemia Protocol Dextrose (Glutose 15) 0 gm PO ONCE PRN; Protocol PRN Reason: Hypoglycemia Protocol Divalproex Sodium (Depakote Dr) 500 mg PO BID [facility] Last Admin: 03/05/17 17:52 Dose: 500 mg Enoxaparin Sodium (Lovenox) 40 mg SC DAILY [facility] Last Admin: 03/05/17 09:30 Dose: 40 mg Glucagon (Glucagen Diagnostic Kit) 0 mg IM STAT PRN; Protocol PRN Reason: Hypoglycemia Protocol Haloperidol (Haldol) 5 mg PO Q1H PRN PRN Reason: agitation max 4x/24h Last Admin: 03/05/17 17:52 Dose: 5 mg Haloperidol Lactate (Haldol) 5 mg IM Q1H PRN PRN Reason: aggression max 4x/24h Last Admin: 02/26/17 20:13 Dose: 5 mg Dextrose (Dextrose 5% In Water 1000 Ml) 1,000 mls @ 0 mls/hr IV .Q0M PRN; Protocol; Per Protocol PRN Reason: Hypoglycemia Protocol Insulin Aspart (Novolog) 0 unit SC ACHS [facility] PRN Reason: Protocol Last Admin: 03/05/17 22:30 Dose: 3 unit Insulin Aspart (Novolog) 10 unit SC AC [facility] Last Admin: 03/05/17 16:30 Dose: 10 unit Insulin Glargine (Lantus) 30 unit SC HS [facility] Last Admin: 03/05/17 22:30 Dose: 30 units Lorazepam (Ativan) 1 mg PO Q4H PRN PRN Reason: severe agitation Last Admin: 03/06/17 01:33 Dose: 1 mg Metoprolol Succinate (Toprol Xl) 50 mg PO DAILY [facility] Last Admin: 03/05/17 09:30 Dose: 50 mg Rosuvastatin Calcium (Crestor) 10 mg PO [facility] Last Admin: 03/05/17 22:29 Dose: 10 mg - Labs Labs: 03/05/17 07:43 03/05/17 07:43 - Constitutional Appears: No Acute Distress - Head Exam Head Exam: ATRAUMATIC, NORMOCEPHALIC - Eye Exam Eye Exam: EOMI, Normal appearance - ENT Exam ENT Exam: Mucous Membranes Moist - Respiratory Exam Respiratory Exam: Clear to Ausculation Bilateral. absent: Rales, Rhonchi, Wheezes - Cardiovascular Exam Cardiovascular Exam: REGULAR RHYTHM, +S1, +S2 - GI/Abdominal Exam GI & Abdominal Exam: Soft, Normal Bowel Sounds. absent: Distended, Tenderness - Extremities Exam Extremities Exam: absent: Pedal Edema, Tenderness - Neurological Exam Neurological Exam: Alert, Awake - Psychiatric Exam Psychiatric exam: Normal Affect, Normal Mood - Skin Skin Exam: Dry, Intact, Normal Color, Warm Assessment and Plan - Assessment and Plan (Free Text) Plan: 1. Schizophrenia and Bipolar disorder * Psychiatry consulted, Dr. Burdick, help appreciated * Psych is recommending [facility] evaluation for group home care * Per ED documentation, Dr De Guzman wants 2 consecutive glucose levels below 200 * Patient medically optimized * Management per psych team * [facility] screening denied the patient on 03/01/17 in the evening stating that his issue is a behavioral one not a psychiatric issue * Per Dr. Lindo, patient is stable for discharge from psychiatric perspective 2. History of Uncontrolled Diabetes Mellitus, non-compliant * Stable, afebrile * HgA1C 02/2017 - 13.4 * Accuchecks today range from 163-500, Serum glucose 676 * ABG showed pH 7.37 PO2 133 PCO2 19 HCO3 15.3 * Anion gap 16 * NS @ 150 cc/hr * CXR shows no active disease but evidence of COPD * F/U blood cx, urine cx, * UA shows 1+ protein, 3+glucose and 6-10 hyaline casts * procalcitonin, amylase, lipase were all unremarkable * Endocrine on consult, Dr Hernandez, help appreciated- Novolog 12 units SC TIDAC, Lantus 24 units SC QHS * Continue Low dose ISS, accuchecks ACHS * Continue Crestor 10mg PO daily * Will consider adding lisinopril for renal protection, however will hold in setting of hyperkalemia * Hypoglycemic protocol 3. Hyperkalemia * Potassium was 5.8 on admission, patient was given insulin * Resolved * Will continue to monitor 4. Normacytic Anemia * Chronic in nature, Hgb at baseline * No active bleeding at this time * Will continue to monitor 5. History of Coronary Artery Disease * Continue ASA and plavix daily 6. History of Hypertension * Continue Toprol XL 50mg PO daily 7. History of Hyperlipidemia * Increased Crestor to 10mg daily due to LDL given diabetic status * Lipid panel from 02/2017 * Triglycerides - 225 * Cholesterol - 209 * LDL - 101 * HDL - 56 Prophylactic measures * Lovenox 40mg SC daily Disposition: Patient is medical optimized for transfer to Psychiatry [facility]. Medicine Team spoke with Psychiatry Team on 02/28/[address] Lindo to contacted [facility]. Outside Event Sales Specialist Adam was also made aware. However, [facility] did NOT accept patient. Outside Event Sales Specialist worked towards placing patient at [facility] in [place], where he was before his signed him out from there. However, [facility] has denied patient. Outside Event Sales Specialist continues to look for placement for this patient. Will DW Dr. Quentin Smith PGY-1 <Lia Saavedra - Last Filed: 03/06/17 13:55> Objective - Vital Signs/Intake and Output Vital Signs (last 24 hours): Temp Pulse Resp BP Pulse Ox 98.5 F 90 20 157/78 H 100 03/06/17 08:30 03/06/17 08:30 03/06/17 08:30 03/06/17 08:30 03/06/17 08:30 Intake and Output: 01/01/18 01/01/18 06:59 18:59 Intake Total 300 250 Balance 300 250 - Medications Medications: Current Medications Aripiprazole (Abilify) 5 mg PO DAILY [facility] Last Admin: 03/06/17 09:54 Dose: 5 mg Aspirin (Ecotrin) 81 mg PO DAILY [facility] Last Admin: 03/06/17 09:53 Dose: 81 mg Clopidogrel Bisulfate (Plavix) 75 mg PO DAILY [facility] Last Admin: 03/06/17 09:54 Dose: 75 mg Dextrose (Dextrose 50% Inj) 0 ml IV STAT PRN; Protocol PRN Reason: Hypoglycemia Protocol Dextrose (Glutose 15) 0 gm PO ONCE PRN; Protocol PRN Reason: Hypoglycemia Protocol Divalproex Sodium (Depakote Dr) 500 mg PO BID [facility] Last Admin: 03/06/17 09:54 Dose: 500 mg Enoxaparin Sodium (Lovenox) 40 mg SC DAILY [facility] Last Admin: 03/06/17 09:53 Dose: 40 mg Glucagon (Glucagen Diagnostic Kit) 0 mg IM STAT PRN; Protocol PRN Reason: Hypoglycemia Protocol Haloperidol (Haldol) 5 mg PO Q1H PRN PRN Reason: agitation max 4x/24h Last Admin: 03/05/17 17:52 Dose: 5 mg Haloperidol Lactate (Haldol) 5 mg IM Q1H PRN PRN Reason: aggression max 4x/24h Last Admin: 02/26/17 20:13 Dose: 5 mg Dextrose (Dextrose 5% In Water 1000 Ml) 1,000 mls @ 0 mls/hr IV .Q0M PRN; Protocol; Per Protocol PRN Reason: Hypoglycemia Protocol Insulin Aspart (Novolog) 0 unit SC ACHS [facility] PRN Reason: Protocol Last Admin: 03/06/17 11:38 Dose: Not Given Insulin Aspart (Novolog) 6 unit SC AC [facility] Last Admin: 03/06/17 12:30 Dose: 6 unit Insulin Glargine (Lantus) 24 unit SC HS [facility] Lorazepam (Ativan) 1 mg PO Q4H PRN PRN Reason: severe agitation Last Admin: 03/06/17 01:33 Dose: 1 mg Metoprolol Succinate (Toprol Xl) 50 mg PO DAILY [facility] Last Admin: 03/06/17 09:53 Dose: 50 mg Rosuvastatin Calcium (Crestor) 10 mg PO HS [facility] Last Admin: 03/05/17 22:29 Dose: 10 mg - Labs Labs: 03/05/17 07:43 03/05/17 07:43 Attending/Attestation - Attestation I have personally seen and examined this patient.: Yes I have fully participated in the care of the patient.: Yes I have reviewed all pertinent clinical information, including history, physical exam and plan: Yes Notes (Text): Seen and examined,I agree with the documentation of the assessment and plan of the resident Case discussed with the resident
[2017-03-06] MEDS: (Novolog) Insulin Aspart, Recombinant 100 u/ml 10 ml vial SC SCH ×7 (08:07→22:17)
[2017-03-06] MEDS: Metoprolol Succinate 50 mg XL Tab PO SCH (09:53)
[2017-03-06] MEDS: Enoxaparin 40 mg Syringe SC SCH (09:53)
[2017-03-06] MEDS: Divalproex 500 mg DR Tab PO SCH ×2 (09:54→17:46)
--- NOTE | 2017-03-06 10:31 | PN ---
DATE: 03/05/2017 ENDOCRINOLOGY FOLLOWUP NOTE SUBJECTIVE: This is a 56-year-old male with recent uncontrolled type 2 insulin-requiring diabetes, presenting here with marked hyperglycemic accelerations related to poor adherence to his insulin regimen and is now being followed closely for metabolic management. His glycemic levels are fluctuating with glucose levels ranging from 112 to 233 and 390 mg/dL. His latest chemistry shows a BUN of 35, sodium 133, potassium 4.2, chloride 91, CO2 of 31, glucose 64, and creatinine 1.1. So, at this time, we will continue the same basal and bolus insulin regimen to allow for dose equilibration and keep him on the Lantus given as 30 units subcu at bedtime daily as ordered. We will continue the NovoLog given as 10 units subcu t.i.d. before meals as ordered. We will titrate incrementally as indicated to optimize metabolic control. We will follow. Brook Hernandez MD
[2017-03-06 14:18] LABS: BASO % 0.5 % (0.0-2.0); EOS # 0.1 K/uL (0.0-0.7); EOS % 1.7 % (0.0-4.0); HEMOGLOBIN 8.9 g/dL (12.0-18.0); LYMPH # 3.1 K/uL (1.0-4.3); LYMPH % 39.4 % (20.0-40.0); MEAN CELL VOLUME 90.8 fL (80.0-94.0); MEAN CORPUSCULAR HEMOGLOBIN 31.5 pg (27.0-31.0); MEAN CORPUSCULAR HGB CONC 34.7 g/dL (33.0-37.0); MONO # 0.6 K/uL (0.0-0.8); MONO % 7.5 % (0.0-10.0); NEUT % 50.9 % (50.0-75.0); RBC 2.82 Mil/uL (4.40-5.90); RED CELL DISTRIBUTION WIDTH 13.4 % (11.5-14.5); WHITE BLOOD COUNT 7.8 K/uL (4.8-10.8)
[2017-03-06 14:33] LABS: ALB/GLOB RATIO 1.4 (1.0-2.1); ALBUMIN 3.6 g/dL (3.5-5.0); ALT/SGPT 31 U/L (21-72); AST/SGOT 28 U/L (17-59); BLOOD UREA NITROGEN 30 mg/dL (9-20); CALCIUM 8.7 mg/dl (8.6-10.4); GFR AFRICAN-AMERICAN > 60; GFR NON-AFRICAN AMERICAN > 60; MAGNESIUM 2.2 mg/dL (1.6-2.3)
[2017-03-06] MEDS: (Lantus) Insulin Glargine, Recombinant SC SCH (22:10)
[2017-03-07] MEDS: (Lantus) Insulin Glargine, Recombinant SC SCH (02:28)
[2017-03-07 06:40] LABS: BASO # 0.1 K/uL (0.0-0.2); BASO % 0.8 % (0.0-2.0); EOS # 0.1 K/uL (0.0-0.7); EOS % 1.4 % (0.0-4.0); LYMPH # 2.7 K/uL (1.0-4.3); LYMPH % 33.4 % (20.0-40.0); MEAN CORPUSCULAR HEMOGLOBIN 32.2 pg (27.0-31.0); MEAN CORPUSCULAR HGB CONC 35.7 g/dL (33.0-37.0); MEAN PLATELET VOLUME 7.1 fL (7.2-11.7); MONO # 0.8 K/uL (0.0-0.8); MONO % 10.1 % (0.0-10.0); NEUT # 4.4 K/uL (1.8-7.0); NEUT % 54.3 % (50.0-75.0); RBC 2.5 Mil/uL (4.40-5.90); RED CELL DISTRIBUTION WIDTH 13.4 % (11.5-14.5); WHITE BLOOD COUNT 8.1 K/uL (4.8-10.8)
[2017-03-07 06:57] LABS: ALBUMIN 3.1 g/dL (3.5-5.0); ALT/SGPT 29 U/L (21-72); AST/SGOT 23 U/L (17-59); BLOOD UREA NITROGEN 31 mg/dL (9-20); CALCIUM 8.6 mg/dl (8.6-10.4); GFR AFRICAN-AMERICAN > 60; GFR NON-AFRICAN AMERICAN > 60; MAGNESIUM 2.2 mg/dL (1.6-2.3)
[2017-03-07 06:59] LABS: ALB/GLOB RATIO 1.3 (1.0-2.1)
--- NOTE | 2017-03-07 07:59 | PN ---
DATE: ENDOCRINOLOGY FOLLOWUP NOTE LOCATION: Room 359. SUBJECTIVE: This is a 56-year-old male with recent uncontrolled type 2 insulin requiring diabetes, now being followed closely for metabolic management. He once again developed director pharmaceutical hypoglycemia and glucose levels dropped to 37 mg/dL. His oral intake has been quite variable as per the nursing staff. LABORATORY DATA: As noted, his latest chemistry showed a BUN of 35, sodium 133, potassium 4.2, chloride 91, CO2 of 31, glucose 64, creatinine 1.1. PLAN: So, at this time, we will modify once again his basal and bolus insulin regimen and lower the Lantus to 24 units subcutaneous at bedtime daily to start tonight. We also lowered the NovoLog to 6 units subcutaneous t.i.d. before meals to start at lunchtime today as ordered. We will titrate incrementally as indicated to optimize metabolic control. We will follow. Brook Hernandez MD
[2017-03-07] MEDS: (Novolog) Insulin Aspart, Recombinant 100 u/ml 10 ml vial SC SCH ×7 (08:36→21:33)
[2017-03-07] MEDS: Metoprolol Succinate 50 mg XL Tab PO SCH (09:43)
[2017-03-07] MEDS: Enoxaparin 40 mg Syringe SC SCH (09:44)
[2017-03-07] MEDS: Divalproex 500 mg DR Tab PO SCH ×2 (09:44→17:42)
--- NOTE | 2017-03-07 15:08 | CP.PCM.PN ---
<Cy Mcdonald - Last Filed: 03/07/17 15:01> Subjective - Date & Time of Evaluation Date of Evaluation: 03/07/17 Time of Evaluation: 15:01 - Subjective Subjective: Patient has been seen and examined. No overnight events reported. He has no complaints at this time. Objective - Vital Signs/Intake and Output Vital Signs (last 24 hours): Temp Pulse Resp BP Pulse Ox 98.7 F 88 20 158/77 H 100 03/07/17 08:00 03/07/17 08:00 03/07/17 08:00 03/07/17 08:00 03/07/17 08:00 Intake and Output: 03/07/17 03/07/17 06:59 18:59 Intake Total 550 Balance 550 - Medications Medications: Current Medications Aripiprazole (Abilify) 5 mg PO DAILY [facility] Last Admin: 03/07/17 12:30 Dose: 5 mg Aspirin (Ecotrin) 81 mg PO DAILY [facility] Last Admin: 03/07/17 09:43 Dose: 81 mg Clopidogrel Bisulfate (Plavix) 75 mg PO DAILY [facility] Last Admin: 03/07/17 09:43 Dose: 75 mg Dextrose (Dextrose 50% Inj) 0 ml IV STAT PRN; Protocol PRN Reason: Hypoglycemia Protocol Dextrose (Glutose 15) 0 gm PO ONCE PRN; Protocol PRN Reason: Hypoglycemia Protocol Divalproex Sodium (Depakote Dr) 500 mg PO BID [facility] Last Admin: 03/07/17 09:44 Dose: 500 mg Enoxaparin Sodium (Lovenox) 40 mg SC DAILY [facility] Last Admin: 03/07/17 09:44 Dose: 40 mg Glucagon (Glucagen Diagnostic Kit) 0 mg IM STAT PRN; Protocol PRN Reason: Hypoglycemia Protocol Haloperidol (Haldol) 5 mg PO Q1H PRN PRN Reason: agitation max 4x/24h Last Admin: 03/05/17 17:52 Dose: 5 mg Haloperidol Lactate (Haldol) 5 mg IM Q1H PRN PRN Reason: aggression max 4x/24h Last Admin: 02/26/17 20:13 Dose: 5 mg Dextrose (Dextrose 5% In Water 1000 Ml) 1,000 mls @ 0 mls/hr IV .Q0M PRN; Protocol; Per Protocol PRN Reason: Hypoglycemia Protocol Insulin Aspart (Novolog) 0 unit SC ACHS [facility] PRN Reason: Protocol Last Admin: 03/07/17 12:30 Dose: Not Given Insulin Aspart (Novolog) 6 unit SC AC [facility] Last Admin: 03/07/17 12:31 Dose: Not Given Insulin Glargine (Lantus) 24 unit SC HS [facility] Last Admin: 03/07/17 02:28 Dose: 24 units Lorazepam (Ativan) 1 mg PO Q4H PRN PRN Reason: severe agitation Last Admin: 03/06/17 01:33 Dose: 1 mg Metoprolol Succinate (Toprol Xl) 50 mg PO DAILY [facility] Last Admin: 03/07/17 09:43 Dose: 50 mg Rosuvastatin Calcium (Crestor) 10 mg PO [facility] Last Admin: 03/06/17 21:20 Dose: 10 mg - Labs Labs: 03/07/17 06:28 03/07/17 06:28 - Additional Findings Additional findings: - Constitutional Appears: No Acute Distress - Head Exam Head Exam: ATRAUMATIC, NORMOCEPHALIC - Eye Exam Eye Exam: EOMI, Normal appearance - ENT Exam ENT Exam: Mucous Membranes Moist - Respiratory Exam Respiratory Exam: Clear to Ausculation Bilateral. absent: Rales, Rhonchi, Wheezes - Cardiovascular Exam Cardiovascular Exam: REGULAR RHYTHM, +S1, +S2 - GI/Abdominal Exam GI & Abdominal Exam: Soft, Normal Bowel Sounds. absent: Distended, Tenderness - Extremities Exam Extremities Exam: absent: Pedal Edema, Tenderness - Neurological Exam Neurological Exam: Alert, Awake - Psychiatric Exam Psychiatric exam: Normal Affect, Normal Mood - Skin Skin Exam: Dry, Intact, Normal Color, Warm Assessment and Plan - Assessment and Plan (Free Text) Assessment: 56 year old male with PMHx bipolar, schizophrenia, dementia, CAD, CHF, diabetes , DKA, HTN, anemia who presents to the hospital brought in for psychotic behavior. Found to have uncontrolled diabetes. Plan: 1. Schizophrenia and Bipolar disorder * Psychiatry consulted, Dr. Burdick, help appreciated * Psych is recommending [facility] evaluation for intermission coordinator care * Patient medically optimized * Management per psych team * [facility] screening denied the patient on 03/01/17 in the evening stating that his issue is a behavioral one not a psychiatric issue * Per Dr. Lindo, patient is stable for discharge from psychiatric perspective * Reconsulted Psych (Dr. Magana) - F/U * Consulted Palliative Care for Goals of care. - F/U with Recs 2. History of Uncontrolled Diabetes Mellitus, non-compliant * Stable, afebrile * HgA1C 02/2017 - 13.4 * Accuchecks today range from 163-500, Serum glucose 676 * ABG showed pH 7.37 PO2 133 PCO2 19 HCO3 15.3 * Anion gap 16 * NS @ 150 cc/hr * CXR shows no active disease but evidence of COPD * F/U blood cx, urine cx, * UA shows 1+ protein, 3+glucose and 6-10 hyaline casts * procalcitonin, amylase, lipase were all unremarkable * Endocrine on consult, Dr Hernandez, help appreciated- * Novolog 12 units SC TIDAC, Lantus 24 units SC QHS * Continue Low dose ISS, accuchecks ACHS * Continue Crestor 10mg PO daily * Will consider adding lisinopril for renal protection, however will hold in setting of hyperkalemia * Hypoglycemic protocol 3. Hyperkalemia (Resolved) * Potassium was 5.8 on admission, patient was given insulin * Will continue to monitor 4. Normacytic Anemia (Stable) * Chronic in nature, Hgb at baseline * No active bleeding at this time * Will continue to monitor 5. History of Coronary Artery Disease * Continue ASA and plavix daily 6. History of Hypertension * Continue Toprol XL 50mg PO daily 7. History of Hyperlipidemia * Increased Crestor to 10mg daily due to LDL given diabetic status * Lipid panel from 02/2017 * Triglycerides - 225 * Cholesterol - 209 * LDL - 101 * HDL - 56 Prophylactic measures * Lovenox 40mg SC daily Disposition: Patient is medical optimized for transfer to Psychiatry [facility]. Medicine Team spoke with Psychiatry Team on 02/28/[address] Lindo to contacted [facility]. [employer] Adam was also made aware. However, [facility] did NOT accept patient. [employer] worked towards placing patient at [facility] in [place], where he was before his signed him out from there. However, [facility] has denied patient. [employer] continues to look for placement for this patient. 03/07/16: Reconsulted Psych. Consulted Palliative, consulted dietary (Patient doesn't have dentures with him) Patient seen and discussed with Attending Cy Mcdonald PGY-1 <Lashell Pappas V - Last Filed: 03/07/17 17:22> Objective - Vital Signs/Intake and Output Vital Signs (last 24 hours): Temp Pulse Resp BP Pulse Ox 98.7 F 88 20 158/77 H 100 03/07/17 08:00 03/07/17 12:50 03/07/17 08:00 03/07/17 12:50 03/07/17 12:50 Intake and Output: 03/07/17 03/07/17 06:59 18:59 Intake Total 550 Balance 550 - Medications Medications: Current Medications Aripiprazole (Abilify) 5 mg PO DAILY [facility] Last Admin: 03/07/17 12:30 Dose: 5 mg Aspirin (Ecotrin) 81 mg PO DAILY [facility] Last Admin: 03/07/17 09:43 Dose: 81 mg Clopidogrel Bisulfate (Plavix) 75 mg PO DAILY [facility] Last Admin: 03/07/17 09:43 Dose: 75 mg Dextrose (Dextrose 50% Inj) 0 ml IV STAT PRN; Protocol PRN Reason: Hypoglycemia Protocol Dextrose (Glutose 15) 0 gm PO ONCE PRN; Protocol PRN Reason: Hypoglycemia Protocol Divalproex Sodium (Depakote Dr) 500 mg PO BID [facility] Last Admin: 03/07/17 09:44 Dose: 500 mg Enoxaparin Sodium (Lovenox) 40 mg SC DAILY [facility] Last Admin: 03/07/17 09:44 Dose: 40 mg Glucagon (Glucagen Diagnostic Kit) 0 mg IM STAT PRN; Protocol PRN Reason: Hypoglycemia Protocol Haloperidol (Haldol) 5 mg PO Q1H PRN PRN Reason: agitation max 4x/24h Last Admin: 03/05/17 17:52 Dose: 5 mg Haloperidol Lactate (Haldol) 5 mg IM Q1H PRN PRN Reason: aggression max 4x/24h Last Admin: 02/26/17 20:13 Dose: 5 mg Dextrose (Dextrose 5% In Water 1000 Ml) 1,000 mls @ 0 mls/hr IV .Q0M PRN; Protocol; Per Protocol PRN Reason: Hypoglycemia Protocol Insulin Aspart (Novolog) 0 unit SC ACHS [facility] PRN Reason: Protocol Last Admin: 03/07/17 12:30 Dose: Not Given Insulin Aspart (Novolog) 6 unit SC AC [facility] Last Admin: 03/07/17 12:31 Dose: Not Given Insulin Glargine (Lantus) 24 unit SC [facility] Last Admin: 03/07/17 02:28 Dose: 24 units Lorazepam (Ativan) 1 mg PO Q4H PRN PRN Reason: severe agitation Last Admin: 03/06/17 01:33 Dose: 1 mg Metoprolol Succinate (Toprol Xl) 50 mg PO DAILY [facility] Last Admin: 03/07/17 09:43 Dose: 50 mg Rosuvastatin Calcium (Crestor) 10 mg PO [facility] Last Admin: 03/06/17 21:20 Dose: 10 mg - Labs Labs: 03/07/17 06:28 03/07/17 06:28 Attending/Attestation - Attestation I have personally seen and examined this patient.: Yes I have fully participated in the care of the patient.: Yes I have reviewed all pertinent clinical information, including history, physical exam and plan: Yes Notes (Text): Patient seen, examined, in case discussed with daytime resident. Patient seen this morning. Spoke to the patient in U[place]bek. Patient was very calm, denied acute complaints except that he can't really eat the food without his dentures which are at the house. Patient inquires when he can go home. Discussed with case management and social welfare clerk. There is much controversy in regards to discharge planning for the patient. Patient was refused from [facility] given that his major issues are behavioral as opposed to psychiatric. Patient has been refused from [facility] a long-term care facility which he has previous history of signing himself out AGAINST MEDICAL ADVICE. Resident did recheck to patient's primary care doctor Dr. Gaona. He reports from his visits with the patient that he is hard headed and stubborn but he is able to make decisions. Palliative care consult for goals of care. Palliative care has spoken with with patient's who remarks the patient is very aggressive behavior, refusal to take his medications at home, which is complicated by a very social situation wherein she is also providing further 33-year-old son with Down syndrome and in- home situation is unstable given that they have lost their apartments in the past given patient's aggressive behavior. Patient cannot leave AGAINST MEDICAL ADVICE. We'll ask psych to reevaluate the patient. I do believe part of patient's aggressive behavior in the hospital setting is usually most associated with language barrier given his paralleling which is [place]. Patient has not been aggressive with me. Patient has been noted to be aggressive with nursing staff, refusing blood works, and eating when he chooses to. Assessment/Plan 1. Schizophrenia and Bipolar disorder (stable) * Psychiatry consulted, Dr. Burdick, help appreciated * Psych is recommending [facility] evaluation for penitentiary care * Patient medically optimized * [facility] screening denied the patient on 03/01/17 in the evening stating that his issue is a behavioral one not a psychiatric issue * Per Dr. Lindo, patient is stable for discharge from psychiatric perspective * Will reconsult Psych (Dr. Magana) * Consulted Palliative Care for Goals of care. - F/U with Recs 2. History of Uncontrolled Diabetes Mellitus, non-compliant * Stable, afebrile * HgA1C 02/2017 - 13.4 * Accuchecks today range from 163-500, Serum glucose 676 * CXR shows no active disease but evidence of COPD * Blood cultures: negative * urine cx: <10,000 CFU contamination * procalcitonin, amylase, lipase were all unremarkable * Endocrine on consult, Dr Hernandez, help appreciated- * Novolog ) units subq ACHS8) * Novolog 6 units subq AC * Lantus 24 units subHS * Continue Crestor 10mg PO daily * Hold Lisinopril to prevent hyperkalemia * Hypoglycemic protocol 3. Hyperkalemia (Resolved) * Normalized 4. Normacytic Anemia (Stable) * Chronic in nature, Hgb at baseline * No active bleeding at this time * Will continue to monitor 5. History of Coronary Artery Disease * Continue ASA and plavix daily 6. History of Hypertension * Continue Toprol XL 50mg PO daily 7. History of Hyperlipidemia * Increased Crestor to 10mg daily due to LDL given diabetic status * Lipid panel from 02/2017 * Triglycerides - 225 * Cholesterol - 209 * LDL - 101 * HDL - 56 8_ Prophylactic measures * Lovenox 40mg SC daily Disposition: * Patient is medical optimized for transfer to Psychiatry [facility]. * Medicine Team spoke with Psychiatry Team on 02/28/[address] Lindo to contacted [facility]. [employer] Adam was also made aware. However, [facility] did NOT accept patient. [employer] worked towards placing patient at [facility] in [place], where he was before his signed him out from there. However, [facility] has denied patient. [employer] continues to look for placement for this patient. * Palliative care consult * Will need to reconsult psych * Patient cannot AMA.
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
--- NOTE | 2017-03-07 17:21 | PCM.PYCHPN ---
Psychiatric Progress Note - Psychiatric Progress Note Patient seen today, length of contact: 18 min Patient Chief Complaint: "I feel fine" Problems Identified/Issues Discussed: The pt is seen, chart reviewed and case discussed again. He is better than when he first presented to ED; calmer and cooperative, pleasantly answering questions, almost child-like at times. He denies suicidal/homicidal ideation and no delusions or hallucinations elicited. He is reported to be more irate at night time and maybe confused, which could be due to his dementia. He is adherent to his meds but has minimal insight and is NOT able to take care of ADLs, meds, blood sugar, even basic needs without help/support or guidance. His psych condition is NO longer affecting him as negatively and he NO longer needs inpatient psych admission. However, he does NOT have the capacity to make medical decisions, as he does not grasp his conditions properly, nor is able to take care of self by himself. His is refusing to take him back fearing he will stop meds and relapse again, plus she is already taking care of their down syndrome son. Support given, psychoed given. Medication Change: Yes (Abilify 5 mg twice a day) Medical Record Reviewed: Yes Mental Status Examination - Cognitive Function Orientation: Person, Place, Time (year and month) Memory: Impaired (more significant than other cognitive areas) Attention: Poor Concentration: Poor Association: Loose Fund of Knowledge: Poor - Mood Mood: Other (labile) - Affect Affect: Constricted (odd), Other (labile) - Speech Speech: Slurred - Formal Thought Process Formal Thought Process: Loosening of associations - Suicidal Ideation Suicidal Ideation: No - Homicidal Ideation Homicidal Ideation: No Goal/Treatment Plan - Goal/Treatment Plan Need for Continued Stay: Discharge may exacerbated symptoms, Severe functional impairment Progress Toward Problem(s) and Goals/Treatment Plan: Abilify 5 mg BID for psychosis Depakote for mood swings, irritability prn meds Support and psychoed Aricept for dementia sxs Refer to intermediate accountant placement
[2017-03-07] MEDS ORDERED: (Lantus) Insulin Glargine, Recombinant SC SCH (22:00)
--- NOTE | 2017-03-08 00:25 | PN ---
DATE: ENDOCRINOLOGY FOLLOWUP NOTE LOCATION: Room 359. SUBJECTIVE: This is a 56-year-old male with recent uncontrolled type 2 insulin-requiring diabetes with extremes of glycemic fluctuations and constant daily metabolic lability as noted, and the glucose values again overnight have ranged from 92 to 153 and 268 mg/dL. His latest chemistry showed a BUN of 31, sodium 131, potassium 4.5, chloride 96, CO2 29, glucose 206, creatinine 1.2. So at this time, we will modify once again his basal and bolus insulin regimen and increase the Lantus to 28 units subcu at bedtime daily to start tonight. We will increase his Novolog to 8 units subcu t.i.d. before meals to start tomorrow morning before breakfast as ordered. We will continue again the low dose correction scale using Novolog insulin to obviate hypoglycemia and detailed orders have been given. We will obtain serial chemistries and supplement accordingly as needed. Brook Hernandez MD
[2017-03-08] MEDS: (Novolog) Insulin Aspart, Recombinant 100 u/ml 10 ml vial SC SCH ×7 (07:16→21:55)
[2017-03-08] MEDS: Divalproex 500 mg DR Tab PO SCH ×2 (09:05→18:00)
[2017-03-08] MEDS: Enoxaparin 40 mg Syringe SC SCH (09:06)
[2017-03-08] MEDS: Metoprolol Succinate 50 mg XL Tab PO SCH (09:06)
--- NOTE | 2017-03-08 15:59 | CP.PCM.PN ---
<Cy Mcdonald - Last Filed: 03/08/17 16:13> Subjective - Date & Time of Evaluation Date of Evaluation: 03/08/17 Time of Evaluation: 09:30 - Subjective Subjective: Patient has been seen and examined. No overnight events reported. He has no complaints at this time. Objective - Vital Signs/Intake and Output Vital Signs (last 24 hours): Temp Pulse Resp BP Pulse Ox 98.1 F 83 20 155/73 H 98 03/08/17 15:39 03/08/17 15:39 03/08/17 15:39 03/08/17 15:39 03/08/17 15:39 Intake and Output: 03/08/17 03/08/17 06:59 18:59 Intake Total 240 480 Balance 240 480 - Medications Medications: Current Medications Aripiprazole (Abilify) 5 mg PO BID [facility] Last Admin: 03/08/17 09:05 Dose: 5 mg Aspirin (Ecotrin) 81 mg PO DAILY [facility] Last Admin: 03/08/17 09:05 Dose: 81 mg Clopidogrel Bisulfate (Plavix) 75 mg PO DAILY [facility] Last Admin: 03/08/17 09:05 Dose: 75 mg Dextrose (Dextrose 50% Inj) 0 ml IV STAT PRN; Protocol PRN Reason: Hypoglycemia Protocol Dextrose (Glutose 15) 0 gm PO ONCE PRN; Protocol PRN Reason: Hypoglycemia Protocol Divalproex Sodium (Depakote Dr) 500 mg PO BID [facility] Last Admin: 03/08/17 09:05 Dose: 500 mg Enoxaparin Sodium (Lovenox) 40 mg SC DAILY [facility] Last Admin: 03/08/17 09:06 Dose: 40 mg Glucagon (Glucagen Diagnostic Kit) 0 mg IM STAT PRN; Protocol PRN Reason: Hypoglycemia Protocol Haloperidol (Haldol) 5 mg PO Q1H PRN PRN Reason: agitation max 4x/24h Last Admin: 03/05/17 17:52 Dose: 5 mg Haloperidol Lactate (Haldol) 5 mg IM Q1H PRN PRN Reason: aggression max 4x/24h Last Admin: 02/26/17 20:13 Dose: 5 mg Dextrose (Dextrose 5% In Water 1000 Ml) 1,000 mls @ 0 mls/hr IV .Q0M PRN; Protocol; Per Protocol PRN Reason: Hypoglycemia Protocol Insulin Aspart (Novolog) 0 unit SC ACHS [facility] PRN Reason: Protocol Last Admin: 03/08/17 12:07 Dose: Not Given Insulin Aspart (Novolog) 8 unit SC AC [facility] Last Admin: 03/08/17 12:07 Dose: 8 unit Insulin Glargine (Lantus) 30 unit SC HS [facility] Lorazepam (Ativan) 1 mg PO Q4H PRN PRN Reason: severe agitation Last Admin: 03/06/17 01:33 Dose: 1 mg Metoprolol Succinate (Toprol Xl) 50 mg PO DAILY [facility] Last Admin: 03/08/17 09:06 Dose: 50 mg Rosuvastatin Calcium (Crestor) 10 mg PO HS [facility] Last Admin: 03/07/17 21:43 Dose: 10 mg - Labs Labs: 03/07/17 06:28 03/07/17 06:28 - Additional Findings Additional findings: - Constitutional Appears: No Acute Distress - Head Exam Head Exam: ATRAUMATIC, NORMOCEPHALIC - Eye Exam Eye Exam: EOMI, Normal appearance - ENT Exam ENT Exam: Mucous Membranes Moist - Respiratory Exam Respiratory Exam: Clear to Ausculation Bilateral. absent: Rales, Rhonchi, Wheezes - Cardiovascular Exam Cardiovascular Exam: REGULAR RHYTHM, +S1, +S2 - GI/Abdominal Exam GI & Abdominal Exam: Soft, Normal Bowel Sounds. absent: Distended, Tenderness - Extremities Exam Extremities Exam: absent: Pedal Edema, Tenderness - Neurological Exam Neurological Exam: Alert, Awake - Psychiatric Exam Psychiatric exam: Normal Affect, Normal Mood - Skin Skin Exam: Dry, Intact, Normal Color, Warm Assessment and Plan - Assessment and Plan (Free Text) Assessment: 56 year old male with PMHx bipolar, schizophrenia, dementia, CAD, CHF, diabetes , DKA, HTN, anemia who presents to the hospital brought in for psychotic behavior. Found to have uncontrolled diabetes. Plan: 1. Schizophrenia and Bipolar disorder * Psychiatry consulted, Dr. Burdcik, help appreciated * Psych is recommending [facility] [place] for [place] care * Patient medically optimized * Management per psych team * [facility] screening denied the patient on 03/01/17 in the evening stating that his issue is a behavioral one not a psychiatric issue * Reconsulted Psych (Dr. Magana) - Stated that patient does not have the competency to make medical decisions. * Consulted Palliative Care for Goals of care. - Stated that if patient isn't competent for medical decisions than can sign POLST. Recomended Long-term placement 2. History of Uncontrolled Diabetes Mellitus, non-compliant * Stable, afebrile * HgA1C 02/2017 - 13.4 * Accuchecks today range from 163-500, Serum glucose 676 * ABG showed pH 7.37 PO2 133 PCO2 19 HCO3 15.3 * Anion gap 16 * NS @ 150 cc/hr * CXR shows no active disease but evidence of COPD * F/U blood cx, urine cx, * UA shows 1+ protein, 3+glucose and 6-10 hyaline casts * procalcitonin, amylase, lipase were all unremarkable * Endocrine on consult, Dr Hernandez, help appreciated- * Novolog 8 units AC, ISS, and Glaragine 30 Units HS * Continue Crestor 10mg PO daily * Will consider adding lisinopril for renal protection, however will hold in setting of hyperkalemia * Hypoglycemic protocol 3. Hyperkalemia (Resolved) * Potassium was 5.8 on admission, patient was given insulin * Will continue to monitor 4. Normacytic Anemia (Stable) * Chronic in nature, Hgb at baseline * No active bleeding at this time * Will continue to monitor 5. History of Coronary Artery Disease * Continue ASA and plavix daily 6. History of Hypertension * Continue Toprol XL 50mg PO daily 7. History of Hyperlipidemia * Increased Crestor to 10mg daily due to LDL given diabetic status * Lipid panel from 02/2017 * Triglycerides - 225 * Cholesterol - 209 * LDL - 101 * HDL - 56 Prophylactic measures * Lovenox 40mg SC daily Disposition: Patient is medical optimized for transfer to Psychiatry [facility]. Medicine Team spoke with Psychiatry Team on 02/28/[address] Lindo to contacted [facility]. Anesthesiologist Assistant Certified Adam was also made aware. However, [facility] did NOT accept patient. Anesthesiologist Assistant Certified worked towards placing patient at [facility] in [place], where he was before his signed him out from there. However, [facility] has denied patient. Anesthesiologist Assistant Certified continues to look for placement for this patient. Per Psych, patient does not have the competence to make medical decisions. Per Palliative. If patient does not hold competence, than patient's may sign POLST. The plan at this time if to start the process of terminal makeup operator placement. Case management is aware. Patient seen and discussed with Attending Cy Mcdonald PGY-1 <Lashell Pappas V - Last Filed: 03/08/17 23:35> Objective - Vital Signs/Intake and Output Vital Signs (last 24 hours): Temp Pulse Resp BP Pulse Ox 98.0 F 83 20 155/73 H 98 03/08/17 20:54 03/08/17 16:48 03/08/17 15:39 03/08/17 16:48 03/08/17 16:48 Intake and Output: 03/08/17 03/09/17 18:59 06:59 Intake Total 480 350 Balance 480 350 - Medications Medications: Current Medications Acetaminophen (Tylenol 325mg Tab) 650 mg PO Q6 PRN PRN Reason: pain. Last Admin: 03/08/17 19:54 Dose: 650 mg Aripiprazole (Abilify) 5 mg PO BID [facility] Last Admin: 03/08/17 18:00 Dose: 5 mg Aspirin (Ecotrin) 81 mg PO DAILY [facility] Last Admin: 03/08/17 09:05 Dose: 81 mg Clopidogrel Bisulfate (Plavix) 75 mg PO DAILY [facility] Last Admin: 03/08/17 09:05 Dose: 75 mg Dextrose (Dextrose 50% Inj) 0 ml IV STAT PRN; Protocol PRN Reason: Hypoglycemia Protocol Dextrose (Glutose 15) 0 gm PO ONCE PRN; Protocol PRN Reason: Hypoglycemia Protocol Divalproex Sodium (Depakote Dr) 500 mg PO BID [facility] Last Admin: 03/08/17 18:00 Dose: 500 mg Enoxaparin Sodium (Lovenox) 40 mg SC DAILY [facility] Last Admin: 03/08/17 09:06 Dose: 40 mg Glucagon (Glucagen Diagnostic Kit) 0 mg IM STAT PRN; Protocol PRN Reason: Hypoglycemia Protocol Haloperidol (Haldol) 5 mg PO Q1H PRN PRN Reason: agitation max 4x/24h Last Admin: 03/05/17 17:52 Dose: 5 mg Haloperidol Lactate (Haldol) 5 mg IM Q1H PRN PRN Reason: aggression max 4x/24h Last Admin: 02/26/17 20:13 Dose: 5 mg Dextrose (Dextrose 5% In Water 1000 Ml) 1,000 mls @ 0 mls/hr IV .Q0M PRN; Protocol; Per Protocol PRN Reason: Hypoglycemia Protocol Insulin Aspart (Novolog) 0 unit SC ACHS [facility] PRN Reason: Protocol Last Admin: 03/08/17 21:55 Dose: 2 unit Insulin Aspart (Novolog) 8 unit SC AC [facility] Last Admin: 03/08/17 17:10 Dose: 8 unit Insulin Glargine (Lantus) 30 unit SC HS [facility] Last Admin: 03/08/17 21:53 Dose: 30 unit Lorazepam (Ativan) 1 mg PO Q4H PRN PRN Reason: severe agitation Last Admin: 03/06/17 01:33 Dose: 1 mg Metoprolol Succinate (Toprol Xl) 50 mg PO DAILY [facility] Last Admin: 03/08/17 09:06 Dose: 50 mg Rosuvastatin Calcium (Crestor) 10 mg PO [facility] Last Admin: 03/08/17 21:22 Dose: 10 mg - Labs Labs: 03/07/17 06:28 03/07/17 06:28 Attending/Attestation - Attestation I have personally seen and examined this patient.: Yes I have fully participated in the care of the patient.: Yes I have reviewed all pertinent clinical information, including history, physical exam and plan: Yes
[2017-03-08] MEDS: (Lantus) Insulin Glargine, Recombinant SC SCH (21:53)
--- NOTE | 2017-03-09 01:27 | PN ---
DATE: ENDOCRINOLOGY FOLLOWUP NOTE LOCATION: Room 659. SUBJECTIVE: This is a 56-year-old male with recent uncontrolled type-2 insulin-requiring diabetes with marked metabolic lability and extensive glycemic fluctuation as noted with his glucose values of range from 92, 233, 268 and 427 mg /dL. LABORATORY DATA: His chemistries showed BUN of 26, sodium 129, potassium 5.1, chloride 95, CO2 of 28, glucose 337, and creatinine 1.1. PLAN: So at this time we will modify once again his basal and bolus insulin regimen and increase the Lantus to 33 units subcu at bedtime daily to start tonight. We will continue NovoLog given as 8 units t.i.d. before meals as ordered. We will titrate incrementally as indicated to optimize metabolic control. We will follow. Brook Hernandez MD
[2017-03-09] MEDS: (Novolog) Insulin Aspart, Recombinant 100 u/ml 10 ml vial SC SCH ×7 (07:58→21:36)
--- NOTE | 2017-03-09 08:09 | CP.PCM.PN ---
<Cy Mcdonald - Last Filed: 03/09/17 12:34> Subjective - Date & Time of Evaluation Date of Evaluation: 03/09/17 Time of Evaluation: 08:06 - Subjective Subjective: Patient has been seen and examined. He has no complaints at this time. He states "I'm okay". Patient is wondering when he is going home and has been refusing blood draws. Objective - Vital Signs/Intake and Output Vital Signs (last 24 hours): Temp Pulse Resp BP Pulse Ox 98.4 F 78 20 160/79 H 100 03/09/17 07:00 03/09/17 07:00 03/09/17 07:00 03/09/17 07:00 03/09/17 07:00 Intake and Output: 03/09/17 03/09/17 06:59 18:59 Intake Total 590 Balance 590 - Medications Medications: Current Medications Acetaminophen (Tylenol 325mg Tab) 650 mg PO Q6 PRN PRN Reason: pain. Last Admin: 03/08/17 19:54 Dose: 650 mg Aripiprazole (Abilify) 5 mg PO BID [facility] Last Admin: 03/08/17 18:00 Dose: 5 mg Aspirin (Ecotrin) 81 mg PO DAILY [facility] Last Admin: 03/08/17 09:05 Dose: 81 mg Clopidogrel Bisulfate (Plavix) 75 mg PO DAILY [facility] Last Admin: 03/08/17 09:05 Dose: 75 mg Dextrose (Dextrose 50% Inj) 0 ml IV STAT PRN; Protocol PRN Reason: Hypoglycemia Protocol Dextrose (Glutose 15) 0 gm PO ONCE PRN; Protocol PRN Reason: Hypoglycemia Protocol Divalproex Sodium (Depakote Dr) 500 mg PO BID [facility] Last Admin: 03/08/17 18:00 Dose: 500 mg Enoxaparin Sodium (Lovenox) 40 mg SC DAILY [facility] Last Admin: 03/08/17 09:06 Dose: 40 mg Glucagon (Glucagen Diagnostic Kit) 0 mg IM STAT PRN; Protocol PRN Reason: Hypoglycemia Protocol Haloperidol (Haldol) 5 mg PO Q1H PRN PRN Reason: agitation max 4x/24h Last Admin: 03/05/17 17:52 Dose: 5 mg Haloperidol Lactate (Haldol) 5 mg IM Q1H PRN PRN Reason: aggression max 4x/24h Last Admin: 02/26/17 20:13 Dose: 5 mg Dextrose (Dextrose 5% In Water 1000 Ml) 1,000 mls @ 0 mls/hr IV .Q0M PRN; Protocol; Per Protocol PRN Reason: Hypoglycemia Protocol Insulin Aspart (Novolog) 0 unit SC ACHS [facility] PRN Reason: Protocol Last Admin: 03/09/17 07:58 Dose: Not Given Insulin Aspart (Novolog) 8 unit SC AC [facility] Last Admin: 03/09/17 07:58 Dose: Not Given Insulin Glargine (Lantus) 30 unit SC [facility] Last Admin: 03/08/17 21:53 Dose: 30 unit Lorazepam (Ativan) 1 mg PO Q4H PRN PRN Reason: severe agitation Last Admin: 03/06/17 01:33 Dose: 1 mg Metoprolol Succinate (Toprol Xl) 50 mg PO DAILY [facility] Last Admin: 03/08/17 09:06 Dose: 50 mg Rosuvastatin Calcium (Crestor) 10 mg PO [facility] Last Admin: 03/08/17 21:22 Dose: 10 mg - Labs Labs: 03/07/17 06:28 03/07/17 06:28 - Additional Findings Additional findings: - Constitutional Appears: No Acute Distress - Head Exam Head Exam: ATRAUMATIC, NORMOCEPHALIC - Eye Exam Eye Exam: EOMI, Normal appearance - ENT Exam ENT Exam: Mucous Membranes Moist - Respiratory Exam Respiratory Exam: Clear to Ausculation Bilateral. absent: Rales, Rhonchi, Wheezes - Cardiovascular Exam Cardiovascular Exam: REGULAR RHYTHM, +S1, +S2 - GI/Abdominal Exam GI & Abdominal Exam: Soft, Normal Bowel Sounds. absent: Distended, Tenderness - Extremities Exam Extremities Exam: absent: Pedal Edema, Tenderness - Neurological Exam Neurological Exam: Alert, Awake - Psychiatric Exam Psychiatric exam: Normal Affect, Normal Mood - Skin Skin Exam: Dry, Intact, Normal Color, Warm Assessment and Plan - Assessment and Plan (Free Text) Assessment: 56 year old male with PMHx bipolar, schizophrenia, dementia, CAD, CHF, diabetes , DKA, HTN, anemia who presents to the hospital brought in for psychotic behavior. Found to have uncontrolled diabetes. Currently awaiting parts counterman placement. Plan: 1. Schizophrenia and Bipolar disorder * Psychiatry consulted, Dr. Burdick, help appreciated * Psych is recommending [facility] [place] for parts counterman care * Patient medically optimized * Management per psych team * [facility] screening denied the patient on 03/01/17 in the evening stating that his issue is a behavioral one not a psychiatric issue * Reconsulted Psych (Dr. Magana) - Stated that patient does not have the competency to make medical decisions. * Consulted Palliative Care for Goals of care. - Stated that if patient isn't competent for medical decisions than can sign POLST. Recomended Long-term placement 2. History of Uncontrolled Diabetes Mellitus, non-compliant * Stable, afebrile * HgA1C 02/2017 - 13.4 * Accuchecks today range from 163-500, Serum glucose 676 * ABG showed pH 7.37 PO2 133 PCO2 19 HCO3 15.3 * Anion gap 16 * NS @ 150 cc/hr * CXR shows no active disease but evidence of COPD * F/U blood cx, urine cx, * UA shows 1+ protein, 3+glucose and 6-10 hyaline casts * procalcitonin, amylase, lipase were all unremarkable * Endocrine on consult, Dr Hernandez, help appreciated- * Novolog 8 units AC, ISS, and Glaragine 30 Units HS * Continue Crestor 10mg PO daily * Will consider adding lisinopril for renal protection, however will hold in setting of hyperkalemia * Hypoglycemic protocol 3. Hyperkalemia (Resolved) * Potassium was 5.8 on admission, patient was given insulin * Will continue to monitor 4. Normacytic Anemia (Stable) * Chronic in nature, Hgb at baseline * No active bleeding at this time * Will continue to monitor 5. History of Coronary Artery Disease * Continue ASA and plavix daily 6. History of Hypertension * Continue Toprol XL 50mg PO daily 7. History of Hyperlipidemia * Increased Crestor to 10mg daily due to LDL given diabetic status * Lipid panel from 02/2017 * Triglycerides - 225 * Cholesterol - 209 * LDL - 101 * HDL - 56 Prophylactic measures * Lovenox 40mg SC daily Disposition: Patient is medical optimized for transfer to Psychiatry [facility]. Medicine Team spoke with Psychiatry Team on 02/28/[address] Lindo to contacted [facility]. Pleating Supervisor Adam was also made aware. However, [facility] did NOT accept patient. Pleating Supervisor worked towards placing patient at [facility] in [place], where he was before his signed him out from there. However, [facility] has denied patient. Pleating Supervisor continues to look for placement for this patient. Per Psych, patient does not have the competence to make medical decisions. Per Palliative. If patient does not hold competence, than patient's may sign POLST. The plan at this time if to start the process of penitentiary placement. Case management is aware. Will follow up. (03/09/16): Patient has been refusing blood draws since yesterday. Patient seen and discussed with Attending Cy Mcdonald PGY-1 <Lashell Pappas V - Last Filed: 03/09/17 16:28> Objective - Vital Signs/Intake and Output Vital Signs (last 24 hours): Temp Pulse Resp BP Pulse Ox 98.4 F 78 20 150/75 98 03/09/17 07:00 03/09/17 15:26 03/09/17 07:00 03/09/17 15:26 03/09/17 15:26 Intake and Output: 03/09/17 03/09/17 06:59 18:59 Intake Total 590 550 Balance 590 550 - Medications Medications: Current Medications Acetaminophen (Tylenol 325mg Tab) 650 mg PO Q6 PRN PRN Reason: pain. Last Admin: 03/08/17 19:54 Dose: 650 mg Aripiprazole (Abilify) 5 mg PO BID [facility] Last Admin: 03/09/17 11:08 Dose: 5 mg Aspirin (Ecotrin) 81 mg PO DAILY [facility] Last Admin: 03/09/17 11:07 Dose: 81 mg Clopidogrel Bisulfate (Plavix) 75 mg PO DAILY [facility] Last Admin: 03/09/17 11:07 Dose: 75 mg Dextrose (Dextrose 50% Inj) 0 ml IV STAT PRN; Protocol PRN Reason: Hypoglycemia Protocol Dextrose (Glutose 15) 0 gm PO ONCE PRN; Protocol PRN Reason: Hypoglycemia Protocol Divalproex Sodium (Depakote Dr) 500 mg PO BID [facility] Last Admin: 03/09/17 11:08 Dose: 500 mg Enoxaparin Sodium (Lovenox) 40 mg SC DAILY [facility] Last Admin: 03/09/17 11:07 Dose: 40 mg Glucagon (Glucagen Diagnostic Kit) 0 mg IM STAT PRN; Protocol PRN Reason: Hypoglycemia Protocol Haloperidol (Haldol) 5 mg PO Q1H PRN PRN Reason: agitation max 4x/24h Last Admin: 03/05/17 17:52 Dose: 5 mg Haloperidol Lactate (Haldol) 5 mg IM Q1H PRN PRN Reason: aggression max 4x/24h Last Admin: 02/26/17 20:13 Dose: 5 mg Dextrose (Dextrose 5% In Water 1000 Ml) 1,000 mls @ 0 mls/hr IV .Q0M PRN; Protocol; Per Protocol PRN Reason: Hypoglycemia Protocol Insulin Aspart (Novolog) 0 unit SC ACHS [facility] PRN Reason: Protocol Last Admin: 03/09/17 11:30 Dose: Not Given Insulin Aspart (Novolog) 8 unit SC AC [facility] Last Admin: 03/09/17 11:37 Dose: 8 unit Insulin Glargine (Lantus) 30 unit SC HS [facility] Last Admin: 03/08/17 21:53 Dose: 30 unit Lorazepam (Ativan) 1 mg PO Q4H PRN PRN Reason: severe agitation Last Admin: 03/09/17 15:15 Dose: 1 mg Metoprolol Succinate (Toprol Xl) 50 mg PO DAILY [facility] Last Admin: 03/09/17 11:07 Dose: 50 mg Rosuvastatin Calcium (Crestor) 10 mg PO [facility] Last Admin: 03/08/17 21:22 Dose: 10 mg - Labs Labs: 03/07/17 06:28 03/07/17 06:28 Attending/Attestation - Attestation I have personally seen and examined this patient.: Yes I have fully participated in the care of the patient.: Yes I have reviewed all pertinent clinical information, including history, physical exam and plan: Yes Notes (Text): Assessment/Plan 1. Schizophrenia and Bipolar disorder Aggressive Behavior * Psychiatry consulted, Dr. Burdick, Dr. Lindo, and Dr. Javier help appreciated * Palliative Care: goals of care * Per discussion with palliative care (03/07/17), Mrs. Alcala states fear of her 's aggressive behavior when he is home and is asking for him to be placed to a parts counterman facility. She reports that at home, patient refuses to take his meds and insulin, becomes violent and presents threat to her and her child who is with Down Syndrome. She is also worried that her land lord would kick her out of the apartment because of his misbehavior . She is concerned about loosing place to live with her disabled child. I elicited her impression about patient's ability to make Medical decisions. Mrs. Alcala suggested that it was better not to talk to patient about it as he could get irritated and violent, as he has a habit of denying all of his diagnosis. She stated that they never discussed End of life care. She agreed to sign POLST if patient determined incompetent to make medical decisions. I allowed Mrs. Alcala to leave hospital without being seen by her , as I was concerned that after seeing her , Mr. Hill would get more irritated and aggressive about going home. * Psych is recommending [facility] evaluation on admission, patient is not eligible for [facility] admission given behaviors issue rather psychiatric issues. * Patient medically optimized for placement * [facility] screening denied the patient on 03/01/17 in the evening stating that his issue is a behavioral one not a psychiatric issue * Per Dr. Lindo, patient is stable for discharge from psychiatric perspective prior visit. However, Latest psych note (03/07/17): He is adherent to his meds but has minimal insight and is NOT able to take care of ADLs, meds, blood sugar , even basic needs without help/support or guidance. His psych condition is NO longer affecting him as negatively and he NO longer needs inpatient psych admission. However, he does NOT have the capacity to make medical decisions, as he does not grasp his conditions properly, nor is able to take care of self by himself. His is refusing to take him back fearing he will stop meds and relapse again, plus she is already taking care of their down syndrome son. Refer to penitentiary placement. This patient should not be allowed to sign AMA * During hospitalization, patient refuses blood works and has refused bloodwork for the past two days. * Abilify 5mg PO BID * Depakote 500mg PO BID * Haldol 5mg [id number] agitation/ IM Q1H aggression * Ativan 1mg PO Q4H PRN severe agitation 2. History of Uncontrolled Diabetes Mellitus, non-compliant * Endocrine on consult, Dr Hernandez, help appreciated- * Stable, afebrile * HgA1C 02/2017 - 13.4 * Accuchecks today range from 298 * Note: patient refuses blood works and sugars and at times refuses to eat. * CXR shows no active disease but evidence of COPD * Blood cultures: negative * urine cx: <10,000 CFU contamination * procalcitonin, amylase, lipase were all unremarkable * Endocrine on consult, Dr Hernandez, help appreciated- * Novolog sliding scale subq * Novolog 8 units subq AC * Lantus 30 units subHS * Continue Crestor 10mg PO daily * Hold Lisinopril to prevent hyperkalemia * Hypoglycemic protocol 3. Hyperkalemia (Resolved) * Normalized 4. Normacytic Anemia (Stable) * Chronic in nature, Hgb at baseline * No active bleeding at this time * Will continue to monitor 5. History of Coronary Artery Disease * Continue ASA and plavix daily 6. History of Hypertension * Continue Toprol XL 50mg PO daily 7. History of Hyperlipidemia * Increased Crestor to 10mg daily due to LDL given diabetic status * Lipid panel from 02/2017 * Triglycerides - 225 * Cholesterol - 209 * LDL - 101 * HDL - 56 8_ Prophylactic measures * Lovenox 40mg SC daily Disposition: * Patient is medical optimized. However, [facility] psych has refused the patient. Our patient is not eligible per inpatient psych at [facility] as per 03/07/17 Psych note. Will need to work with social and case management for parts counterman placement for the patient. * Patient cannot AMA.
[2017-03-09] MEDS: Enoxaparin 40 mg Syringe SC SCH (11:07)
[2017-03-09] MEDS: Metoprolol Succinate 50 mg XL Tab PO SCH (11:07)
[2017-03-09] MEDS: Divalproex 500 mg DR Tab PO SCH ×2 (11:08→17:23)
[2017-03-09] MEDS: (Lantus) Insulin Glargine, Recombinant SC SCH (21:34)
--- NOTE | 2017-03-10 00:31 | PN ---
ENDOCRINOLOGY FOLLOWUP NOTE DATE: LOCATION: Room 359. SUBJECTIVE: This is a 56-year-old male with recent uncontrolled type 2 insulin-requiring diabetes, now being followed for metabolic management. His glycemic levels are fluctuating, but much improved at this time. The latest glucose levels have ranged from 296 to 298 and mg/dL. His latest chemistry shows a BUN of 31, sodium 131, potassium 4.5, chloride 96, CO2 of 29, glucose 206 and creatinine 1.2. His bedtime glucose was 351 mg/dL. ASSESSMENT This is a 56-year-old male with uncontrolled and decompensated type 2 insulin-requiring diabetes with extremes of glycemic fluctuation as noted thereof. PLAN OF MANAGEMENT: We will continue the same basal and bolus insulin regimen to allow for dose equilibration and keep him on the Lantus given as 30 units subcu at bedtime daily as ordered. We will continue the NovoLog given as 8 units subcu t.i.d. before meals as ordered. We will titrate incrementally as indicated to optimize metabolic control. We will follow up with you. Brook Hernandez MD
[2017-03-10] MEDS: (Novolog) Insulin Aspart, Recombinant 100 u/ml 10 ml vial SC SCH ×8 (07:28→21:32)
[2017-03-10 07:32] LABS: BASO # 0.1 K/uL (0.0-0.2); BASO % 0.7 % (0.0-2.0); EOS # 0.2 K/uL (0.0-0.7); EOS % 2.3 % (0.0-4.0); HEMOGLOBIN 8.8 g/dL (12.0-18.0); LYMPH % 39.3 % (20.0-40.0); MEAN CELL VOLUME 91.3 fL (80.0-94.0); MEAN CORPUSCULAR HEMOGLOBIN 31.9 pg (27.0-31.0); MEAN CORPUSCULAR HGB CONC 34.9 g/dL (33.0-37.0); MONO # 0.7 K/uL (0.0-0.8); NEUT # 3.7 K/uL (1.8-7.0); NEUT % 48.7 % (50.0-75.0); RBC 2.75 Mil/uL (4.40-5.90); RED CELL DISTRIBUTION WIDTH 13.6 % (11.5-14.5); WHITE BLOOD COUNT 7.5 K/uL (4.8-10.8)
[2017-03-10 08:23] LABS: ALBUMIN 3.1 g/dL (3.5-5.0); ALT/SGPT 27 U/L (21-72); AST/SGOT 23 U/L (17-59); BLOOD UREA NITROGEN 31 mg/dL (9-20); CALCIUM 8.3 mg/dl (8.6-10.4); GFR AFRICAN-AMERICAN > 60; GFR NON-AFRICAN AMERICAN > 60
[2017-03-10 08:24] LABS: ALB/GLOB RATIO 1.2 (1.0-2.1)
[2017-03-10] MEDS: Enoxaparin 40 mg Syringe SC SCH (09:23)
[2017-03-10] MEDS: Metoprolol Succinate 50 mg XL Tab PO SCH (09:23)
[2017-03-10] MEDS: Divalproex 250 mg DR Tab PO SCH ×2 (09:24→17:25)
--- NOTE | 2017-03-10 15:44 | CP.PCM.PN ---
<Cy Mcdonald - Last Filed: 03/10/17 15:42> Subjective - Date & Time of Evaluation Date of Evaluation: 03/10/17 Time of Evaluation: 13:42 - Subjective Subjective: Patient has been seen and examined. No overnight events reported. He has no complaints at this time. He states "I'm okay". Objective - Vital Signs/Intake and Output Vital Signs (last 24 hours): Temp Pulse Resp BP Pulse Ox 98.4 F 77 20 148/73 99 03/10/17 00:00 03/10/17 00:00 03/10/17 00:00 03/10/17 00:00 03/10/17 00:00 Intake and Output: 03/10/17 03/10/17 06:59 18:59 Intake Total 1150 850 Balance 1150 850 - Medications Medications: Current Medications Acetaminophen (Tylenol 325mg Tab) 650 mg PO Q6 PRN PRN Reason: pain. Last Admin: 03/08/17 19:54 Dose: 650 mg Aripiprazole (Abilify) 5 mg PO BID [facility] Last Admin: 03/10/17 09:24 Dose: 5 mg Aspirin (Ecotrin) 81 mg PO DAILY [facility] Last Admin: 03/10/17 09:23 Dose: 81 mg Clopidogrel Bisulfate (Plavix) 75 mg PO DAILY [facility] Last Admin: 03/10/17 09:23 Dose: 75 mg Dextrose (Dextrose 50% Inj) 0 ml IV STAT PRN; Protocol PRN Reason: Hypoglycemia Protocol Last Admin: 03/10/17 12:07 Dose: 50 ml Dextrose (Glutose 15) 0 gm PO ONCE PRN; Protocol PRN Reason: Hypoglycemia Protocol Last Admin: 03/10/17 05:24 Dose: 15 gm Divalproex Sodium (Depakote Dr) 750 mg PO BID [facility] Last Admin: 03/10/17 09:24 Dose: 750 mg Enoxaparin Sodium (Lovenox) 40 mg SC DAILY [facility] Last Admin: 03/10/17 09:23 Dose: 40 mg Glucagon (Glucagen Diagnostic Kit) 0 mg IM STAT PRN; Protocol PRN Reason: Hypoglycemia Protocol Haloperidol (Haldol) 5 mg PO Q1H PRN PRN Reason: agitation max 4x/24h Last Admin: 03/05/17 17:52 Dose: 5 mg Haloperidol Lactate (Haldol) 5 mg IM Q1H PRN PRN Reason: aggression max 4x/24h Last Admin: 02/26/17 20:13 Dose: 5 mg Dextrose (Dextrose 5% In Water 1000 Ml) 1,000 mls @ 0 mls/hr IV .Q0M PRN; Protocol; Per Protocol PRN Reason: Hypoglycemia Protocol Insulin Aspart (Novolog) 0 unit SC ACHS [facility] PRN Reason: Protocol Last Admin: 03/10/17 12:13 Dose: Not Given Insulin Aspart (Novolog) 8 unit SC AC [facility] Last Admin: 03/10/17 12:13 Dose: Not Given Insulin Glargine (Lantus) 30 unit SC HS [facility] Last Admin: 03/09/17 21:34 Dose: 30 unit Lorazepam (Ativan) 1 mg PO Q4H PRN PRN Reason: severe agitation Last Admin: 03/09/17 15:15 Dose: 1 mg Metoprolol Succinate (Toprol Xl) 50 mg PO DAILY [facility] Last Admin: 03/10/17 09:23 Dose: 50 mg Rosuvastatin Calcium (Crestor) 10 mg PO [facility] Last Admin: 03/09/17 22:02 Dose: 10 mg - Labs Labs: 03/10/17 07:15 03/10/17 07:15 - Additional Findings Additional findings: - Constitutional Appears: No Acute Distress - Head Exam Head Exam: ATRAUMATIC, NORMOCEPHALIC - Eye Exam Eye Exam: EOMI, Normal appearance - ENT Exam ENT Exam: Mucous Membranes Moist - Respiratory Exam Respiratory Exam: Clear to Ausculation Bilateral. absent: Rales, Rhonchi, Wheezes - Cardiovascular Exam Cardiovascular Exam: REGULAR RHYTHM, +S1, +S2 - GI/Abdominal Exam GI & Abdominal Exam: Soft, Normal Bowel Sounds. absent: Distended, Tenderness - Extremities Exam Extremities Exam: absent: Pedal Edema, Tenderness - Neurological Exam Neurological Exam: Alert, Awake - Psychiatric Exam Psychiatric exam: Normal Affect, Normal Mood - Skin Skin Exam: Dry, Intact, Normal Color, Warm Assessment and Plan - Assessment and Plan (Free Text) Assessment: 56 year old male with PMHx bipolar, schizophrenia, dementia, CAD, CHF, diabetes , DKA, HTN, anemia who presents to the hospital brought in for psychotic behavior. Found to have uncontrolled diabetes. Currently awaiting intermediate placement. Plan: 1. Schizophrenia and Bipolar disorder * Psychiatry consulted, Dr. Burdick, help appreciated * Psych is recommending [facility] [place] for vermin exterminator care * Patient medically optimized * Management per psych team * [facility] screening denied the patient on 03/01/17 in the evening stating that his issue is a behavioral one not a psychiatric issue * Reconsulted Psych (Dr. Magana) - Stated that patient does not have the competency to make medical decisions. * Consulted Palliative Care for Goals of care. - Stated that if patient isn't competent for medical decisions than can sign POLST. Recomended Long-term placement 2. History of Uncontrolled Diabetes Mellitus, non-compliant * Stable, afebrile * HgA1C 02/2017 - 13.4 * Accuchecks today range from 163-500, Serum glucose 676 * ABG showed pH 7.37 PO2 133 PCO2 19 HCO3 15.3 * Anion gap 16 * NS @ 150 cc/hr * CXR shows no active disease but evidence of COPD * F/U blood cx, urine cx, * UA shows 1+ protein, 3+glucose and 6-10 hyaline casts * procalcitonin, amylase, lipase were all unremarkable * Endocrine on consult, Dr Hernandez, help appreciated- * Novolog 8 units AC, ISS, and Glaragine 30 Units HS * Continue Crestor 10mg PO daily * Will consider adding lisinopril for renal protection, however will hold in setting of hyperkalemia * Hypoglycemic protocol 3. Hyperkalemia (Resolved) * Potassium was 5.8 on admission, patient was given insulin * Will continue to monitor 4. Normacytic Anemia (Stable) * Chronic in nature, Hgb at baseline * No active bleeding at this time * Will continue to monitor 5. History of Coronary Artery Disease * Continue ASA and plavix daily 6. History of Hypertension * Continue Toprol XL 50mg PO daily 7. History of Hyperlipidemia * Increased Crestor to 10mg daily due to LDL given diabetic status * Lipid panel from 02/2017 * Triglycerides - 225 * Cholesterol - 209 * LDL - 101 * HDL - 56 Prophylactic measures * Lovenox 40mg SC daily Disposition: Patient is medical optimized for transfer to Psychiatry [facility]. Medicine Team spoke with Psychiatry Team on 02/28/[address] Lindo to contacted [facility]. District Gauger Adam was also made aware. However, [facility] did NOT accept patient. District Gauger worked towards placing patient at [facility] in [place], where he was before his signed him out from there. However, [facility] has denied patient. District Gauger continues to look for placement for this patient. Per Psych, patient does not have the competence to make medical decisions. Per Palliative. If patient does not hold competence, than patient's may sign POLST. The plan at this time if to start the process of intermediate placement. Case management is aware. Will follow up. Patient seen and discussed with Attending Cy Mcdonald PGY-1 <Lashell Pappas V - Last Filed: 03/11/17 08:17> Objective - Vital Signs/Intake and Output Vital Signs (last 24 hours): Temp Pulse Resp BP Pulse Ox 98.4 F 94 H 20 171/78 H 99 03/10/17 23:26 03/10/17 23:26 03/10/17 23:26 03/10/17 23:26 03/10/17 23:26 Intake and Output: 03/11/17 03/11/17 06:59 18:59 Intake Total 1080 Balance 1080 - Medications Medications: Current Medications Acetaminophen (Tylenol 325mg Tab) 650 mg PO Q6 PRN PRN Reason: pain. Last Admin: 03/08/17 19:54 Dose: 650 mg Amlodipine Besylate (Norvasc) 5 mg PO DAILY [facility] Aripiprazole (Abilify) 5 mg PO BID [facility] Last Admin: 03/10/17 17:24 Dose: 5 mg Aspirin (Ecotrin) 81 mg PO DAILY [facility] Last Admin: 03/10/17 09:23 Dose: 81 mg Clopidogrel Bisulfate (Plavix) 75 mg PO DAILY [facility] Last Admin: 03/10/17 09:23 Dose: 75 mg Dextrose (Dextrose 50% Inj) 0 ml IV STAT PRN; Protocol PRN Reason: Hypoglycemia Protocol Last Admin: 03/10/17 12:07 Dose: 50 ml Dextrose (Glutose 15) 0 gm PO ONCE PRN; Protocol PRN Reason: Hypoglycemia Protocol Last Admin: 03/10/17 05:24 Dose: 15 gm Divalproex Sodium (Depakote Dr) 750 mg PO BID [facility] Last Admin: 03/10/17 17:25 Dose: 750 mg Enoxaparin Sodium (Lovenox) 40 mg SC DAILY [facility] Last Admin: 03/10/17 09:23 Dose: 40 mg Glucagon (Glucagen Diagnostic Kit) 0 mg IM STAT PRN; Protocol PRN Reason: Hypoglycemia Protocol Haloperidol (Haldol) 5 mg PO Q1H PRN PRN Reason: agitation max 4x/24h Last Admin: 03/05/17 17:52 Dose: 5 mg Haloperidol Lactate (Haldol) 5 mg IM Q1H PRN PRN Reason: aggression max 4x/24h Last Admin: 02/26/17 20:13 Dose: 5 mg Dextrose (Dextrose 5% In Water 1000 Ml) 1,000 mls @ 0 mls/hr IV .Q0M PRN; Protocol; Per Protocol PRN Reason: Hypoglycemia Protocol Insulin Aspart (Novolog) 0 unit SC ACHS [facility] PRN Reason: Protocol Last Admin: 03/11/17 07:40 Dose: Not Given Insulin Aspart (Novolog) 6 unit SC AC [facility] Last Admin: 03/11/17 07:40 Dose: Not Given Insulin Glargine (Lantus) 25 unit SC HS [facility] Lorazepam (Ativan) 1 mg PO Q4H PRN PRN Reason: severe agitation Last Admin: 03/09/17 15:15 Dose: 1 mg Metoprolol Succinate (Toprol Xl) 50 mg PO DAILY [facility] Last Admin: 03/10/17 09:23 Dose: 50 mg Rosuvastatin Calcium (Crestor) 10 mg PO HS [facility] Last Admin: 03/10/17 21:31 Dose: 10 mg - Labs Labs: 03/10/17 07:15 03/10/17 07:15 Attending/Attestation - Attestation I have personally seen and examined this patient.: Yes I have fully participated in the care of the patient.: Yes I have reviewed all pertinent clinical information, including history, physical exam and plan: Yes Notes (Text): This is a late computer entry for 03/10/2017. Patient seen and examined and case discussed with medical assistant secretary. Patient continues to have labile sugars. Per nursing staff patient is eating all his meals. Will need to coordinate with endocrinology to adjust his insulin while patient remains here at the hospital will be able to monitor patient's compliance and effectiveness on the insulin. No new updates from case management. Assessment/Plan 1. Schizophrenia and Bipolar disorder Aggressive Behavior * Psychiatry consulted, Dr. Burdick, Dr. Lindo, and Dr. Javier help appreciated * Palliative Care: goals of care * Per discussion with palliative care (03/07/17), Mrs. Alcala states fear of her 's aggressive behavior when he is home and is asking for him to be placed to a vermin exterminator facility. She reports that at home, patient refuses to take his meds and insulin, becomes violent and presents threat to her and her child who is with Down Syndrome. She is also worried that her land lord would kick her out of the apartment because of his misbehavior . She is concerned about loosing place to live with her disabled child. I elicited her impression about patient's ability to make Medical decisions. Mrs. Alcala suggested that it was better not to talk to patient about it as he could get irritated and violent, as he has a habit of denying all of his diagnosis. She stated that they never discussed End of life care. She agreed to sign POLST if patient determined incompetent to make medical decisions. I allowed Mrs. Alcala to leave hospital without being seen by her , as I was concerned that after seeing her , Mr. Hill would get more irritated and aggressive about going home. * Psych is recommending [facility] [place] admission, patient is not eligible for [facility] admission given behaviors issue rather psychiatric issues. * Patient medically optimized for placement * [facility] screening denied the patient on 03/01/17 in the evening stating that his issue is a behavioral one not a psychiatric issue * Per Dr. Lindo, patient is stable for discharge from psychiatric perspective prior visit. However, Latest psych note (03/07/17): He is adherent to his meds but has minimal insight and is NOT able to take care of ADLs, meds, blood sugar , even basic needs without help/support or guidance. His psych condition is NO longer affecting him as negatively and he NO longer needs inpatient psych admission. However, he does NOT have the capacity to make medical decisions, as he does not grasp his conditions properly, nor is able to take care of self by himself. His is refusing to take him back fearing he will stop meds and relapse again, plus she is already taking care of their down syndrome son. Refer to vermin exterminator placement. This patient should not be allowed to sign AMA * During hospitalization, patient refuses blood works and has refused bloodwork for the past two days. Patient has allowed for blood work today. * Abilify 5mg PO BID * Depakote 500mg PO BID * Haldol 5mg [id number] agitation/ IM Q1H aggression * Ativan 1mg PO Q4H PRN severe agitation 2. History of Uncontrolled Diabetes Mellitus, non-compliant * Endocrine on consult, Dr Hernandez, help appreciated- * Stable, afebrile * HgA1C 02/2017 - 13.4 * Accuchecks today range from 298 * Note: patient refuses blood works and sugars and at times refuses to eat. * CXR shows no active disease but evidence of COPD * Blood cultures: negative * urine cx: <10,000 CFU contamination * procalcitonin, amylase, lipase were all unremarkable * Endocrine on consult, Dr Hernandez, help appreciated- * Novolog sliding scale subq * Novolog 8 units subq AC * Lantus 30 units subHS * Continue Crestor 10mg PO daily * Hold Lisinopril to prevent hyperkalemia * Hypoglycemic protocol 3. Hyperkalemia (Resolved) * Normalized 4. Normacytic Anemia (Stable) * Chronic in nature, Hgb at baseline * No active bleeding at this time * Will continue to monitor 5. History of Coronary Artery Disease * Continue ASA and plavix daily 6. History of Hypertension * Continue Toprol XL 50mg PO daily 7. History of Hyperlipidemia * Increased Crestor to 10mg daily due to LDL given diabetic status * Lipid panel from 02/2017 * Triglycerides - 225 * Cholesterol - 209 * LDL - 101 * HDL - 56 8_ Prophylactic measures * Lovenox 40mg SC daily Disposition: * Patient is medical optimized. However, [facility] psych has refused the patient. Our patient is not eligible per inpatient psych at [facility] as per 03/07/17 Psych note. Will need to work with social and case management for vermin exterminator placement for the patient. * Patient cannot AMA. * F/u case management and social work in regards to placement
[2017-03-10] MEDS: (Lantus) Insulin Glargine, Recombinant SC SCH (21:32)
--- NOTE | 2017-03-11 00:37 | CP.PCM.PN ---
<Radha Wells - Last Filed: 03/11/17 03:48> Subjective - Date & Time of Evaluation Date of Evaluation: 03/11/17 Time of Evaluation: 00:36 - Subjective Subjective: Medicine Progress Note: Hospitalist Service Patient seen and examined at bedside. Patient seen and examined at bedside. Per nursing no acute events overnight. Patient is doing well, offers no complaints at this time. Resting comfortably in bed. Denies headaches, dizziness, cp, palpitations, sob, abdominal pain, urinary symptoms, changes in bowel habits. Objective - Vital Signs/Intake and Output Vital Signs (last 24 hours): Temp Pulse Resp BP Pulse Ox 98.4 F 94 H 20 171/78 H 99 03/10/17 23:26 03/10/17 23:26 03/10/17 23:26 03/10/17 23:26 03/10/17 23:26 Intake and Output: 03/10/17 03/11/17 18:59 06:59 Intake Total 850 600 Balance 850 600 - Medications Medications: Current Medications Acetaminophen (Tylenol 325mg Tab) 650 mg PO Q6 PRN PRN Reason: pain. Last Admin: 03/08/17 19:54 Dose: 650 mg Aripiprazole (Abilify) 5 mg PO BID [facility] Last Admin: 03/10/17 17:24 Dose: 5 mg Aspirin (Ecotrin) 81 mg PO DAILY [facility] Last Admin: 03/10/17 09:23 Dose: 81 mg Clopidogrel Bisulfate (Plavix) 75 mg PO DAILY [facility] Last Admin: 03/10/17 09:23 Dose: 75 mg Dextrose (Dextrose 50% Inj) 0 ml IV STAT PRN; Protocol PRN Reason: Hypoglycemia Protocol Last Admin: 03/10/17 12:07 Dose: 50 ml Dextrose (Glutose 15) 0 gm PO ONCE PRN; Protocol PRN Reason: Hypoglycemia Protocol Last Admin: 03/10/17 05:24 Dose: 15 gm Divalproex Sodium (Depakote Dr) 750 mg PO BID [facility] Last Admin: 03/10/17 17:25 Dose: 750 mg Enoxaparin Sodium (Lovenox) 40 mg SC DAILY [facility] Last Admin: 03/10/17 09:23 Dose: 40 mg Glucagon (Glucagen Diagnostic Kit) 0 mg IM STAT PRN; Protocol PRN Reason: Hypoglycemia Protocol Haloperidol (Haldol) 5 mg PO Q1H PRN PRN Reason: agitation max 4x/24h Last Admin: 03/05/17 17:52 Dose: 5 mg Haloperidol Lactate (Haldol) 5 mg IM Q1H PRN PRN Reason: aggression max 4x/24h Last Admin: 02/26/17 20:13 Dose: 5 mg Dextrose (Dextrose 5% In Water 1000 Ml) 1,000 mls @ 0 mls/hr IV .Q0M PRN; Protocol; Per Protocol PRN Reason: Hypoglycemia Protocol Insulin Aspart (Novolog) 0 unit SC ACHS [facility] PRN Reason: Protocol Last Admin: 03/10/17 21:32 Dose: Not Given Insulin Aspart (Novolog) 6 unit SC AC [facility] Insulin Glargine (Lantus) 30 unit SC [facility] Last Admin: 03/10/17 21:32 Dose: 30 unit Lorazepam (Ativan) 1 mg PO Q4H PRN PRN Reason: severe agitation Last Admin: 03/09/17 15:15 Dose: 1 mg Metoprolol Succinate (Toprol Xl) 50 mg PO DAILY [facility] Last Admin: 03/10/17 09:23 Dose: 50 mg Rosuvastatin Calcium (Crestor) 10 mg PO [facility] Last Admin: 03/10/17 21:31 Dose: 10 mg - Labs Labs: 03/10/17 07:15 03/10/17 07:15 - Additional Findings Additional findings: Appears: No Acute Distress - Head Exam Head Exam: ATRAUMATIC, NORMOCEPHALIC - Eye Exam Eye Exam: EOMI, Normal appearance - ENT Exam ENT Exam: Mucous Membranes Moist - Respiratory Exam Respiratory Exam: Clear to Ausculation Bilateral. absent: Rales, Rhonchi, Wheezes - Cardiovascular Exam Cardiovascular Exam: REGULAR RHYTHM, +S1, +S2 - GI/Abdominal Exam GI & Abdominal Exam: Soft, Normal Bowel Sounds. absent: Distended, Tenderness - Extremities Exam Extremities Exam: absent: Pedal Edema, Tenderness - Neurological Exam Neurological Exam: Alert, Awake - Psychiatric Exam Psychiatric exam: Normal Affect, Normal Mood - Skin Skin Exam: Dry, Intact, Normal Color, Warm Assessment and Plan - Assessment and Plan (Free Text) Assessment: 56 year old male with PMHx bipolar, schizophrenia, dementia, CAD, CHF, diabetes , DKA, HTN, anemia who presents to the hospital brought in for psychotic behavior. Found to have uncontrolled diabetes. Currently awaiting terminal operations manager placement. Plan: 1. Schizophrenia and Bipolar disorder * Psychiatry consulted, Dr. Burdick, help appreciated * Psych was recommending [facility] [place] * Patient medically optimized for placement * [facility] [place] denied the patient on 03/01/17 in the evening stating that his issue is a behavioral one not a psychiatric issue * Per Dr. Lindo, patient is stable for discharge from psychiatric perspective prior visit. However, Latest psych note (03/07/17): He is adherent to his meds but has minimal insight and is NOT able to take care of ADLs, meds, blood sugar , even basic needs without help/support or guidance. His psych condition is NO longer affecting him as negatively and he NO longer needs inpatient psych admission. However, he does NOT have the capacity to make medical decisions, as he does not grasp his conditions properly, nor is able to take care of self by himself. His is refusing to take him back fearing he will stop meds and relapse again, plus she is already taking care of their down syndrome son. Refer to terminal operations manager placement. This patient should not be allowed to sign AMA * Consulted Palliative Care for Goals of care. - Mrs. Alcala stated that they never discussed End of life care. She agreed to sign POLST if patient determined incompetent to make medical decisions * Medical Management per psych team * Continue Abilify 5mg PO BID, Depakote 750mg PO BID * Haldol 5mg [id number] agitation/ IM Q1H aggression * Ativan 1mg PO Q4H PRN severe agitatio 2. History of Uncontrolled Diabetes Mellitus, non-compliant * Stable, afebrile * HgA1C 02/2017 - 13.4 * Accuchecks today range from 28-319, patient was symptomatic during hypoglycemic episode * CXR shows no active disease but evidence of COPD * UA shows 1+ protein, 3+glucose and 6-10 hyaline casts * Blood cx no growth for 5 days, urine cx <10,000 CFU contamination * Procalcitonin, amylase, lipase were all unremarkable * Endocrine on consult, Dr Hernandez, help appreciated- * Novolog 6 units AC * ISS, accuchecks ACHS * Lantus 30 Units HS * Continue Crestor 10mg PO daily * Will consider adding lisinopril for renal protection * Hypoglycemic protocol 3. Hyperkalemia (Resolved) * Potassium was 5.8 on admission, patient was given insulin * Will continue to monitor * K+ currently 4.5 4. Normacytic Anemia (Stable) * Chronic in nature, Hgb at baseline * No active bleeding at this time * Will continue to monitor 5. History of Coronary Artery Disease * Continue ASA and plavix daily * Continue Crestor 10mp PO HS 6. History of Hypertension * Continue Toprol XL 50mg PO daily * SBPs 165-192 range, patient was given Hydralazine 25mg PO yesterday * Will consider add anti-hypertensive agent or increasing Toprol XL dose 7. History of Hyperlipidemia * Increased Crestor to 10mg daily due to LDL given diabetic status * Lipid panel from 02/2017 * Triglycerides - 225 * Cholesterol - 209 * LDL - 101 * HDL - 56 Prophylactic measures * Lovenox 40mg SC daily Disposition: * Patient is medical optimized. However, [facility] psych [place] refused the patient. Our patient is not eligible per inpatient psych at [facility] as per 03/07/17 Psych note. Will need to work with social and case management for terminal operations manager placement for the patient. * Patient cannot AMA. <Lashell Pappas V - Last Filed: 03/11/17 09:58> Objective - Vital Signs/Intake and Output Vital Signs (last 24 hours): Temp Pulse Resp BP Pulse Ox 98.5 F 85 20 182/85 H 100 03/11/17 08:41 03/11/17 08:41 03/11/17 08:41 03/11/17 08:41 03/11/17 08:41 Intake and Output: 03/11/17 03/11/17 06:59 18:59 Intake Total 1080 Balance 1080 - Medications Medications: Current Medications Acetaminophen (Tylenol 325mg Tab) 650 mg PO Q6 PRN PRN Reason: pain. Last Admin: 03/08/17 19:54 Dose: 650 mg Amlodipine Besylate (Norvasc) 5 mg PO DAILY [facility] Aripiprazole (Abilify) 5 mg PO BID [facility] Last Admin: 03/10/17 17:24 Dose: 5 mg Aspirin (Ecotrin) 81 mg PO DAILY [facility] Last Admin: 03/10/17 09:23 Dose: 81 mg Clopidogrel Bisulfate (Plavix) 75 mg PO DAILY [facility] Last Admin: 03/10/17 09:23 Dose: 75 mg Dextrose (Dextrose 50% Inj) 0 ml IV STAT PRN; Protocol PRN Reason: Hypoglycemia Protocol Last Admin: 03/10/17 12:07 Dose: 50 ml Dextrose (Glutose 15) 0 gm PO ONCE PRN; Protocol PRN Reason: Hypoglycemia Protocol Last Admin: 03/10/17 05:24 Dose: 15 gm Divalproex Sodium (Depakote Dr) 750 mg PO BID [facility] Last Admin: 03/10/17 17:25 Dose: 750 mg Enoxaparin Sodium (Lovenox) 40 mg SC DAILY [facility] Last Admin: 03/10/17 09:23 Dose: 40 mg Glucagon (Glucagen Diagnostic Kit) 0 mg IM STAT PRN; Protocol PRN Reason: Hypoglycemia Protocol Haloperidol (Haldol) 5 mg PO Q1H PRN PRN Reason: agitation max 4x/24h Last Admin: 03/05/17 17:52 Dose: 5 mg Haloperidol Lactate (Haldol) 5 mg IM Q1H PRN PRN Reason: aggression max 4x/24h Last Admin: 02/26/17 20:13 Dose: 5 mg Dextrose (Dextrose 5% In Water 1000 Ml) 1,000 mls @ 0 mls/hr IV .Q0M PRN; Protocol; Per Protocol PRN Reason: Hypoglycemia Protocol Insulin Aspart (Novolog) 0 unit SC ACHS [facility] PRN Reason: Protocol Last Admin: 03/11/17 07:40 Dose: Not Given Insulin Aspart (Novolog) 6 unit SC AC [facility] Last Admin: 03/11/17 07:40 Dose: Not Given Insulin Glargine (Lantus) 25 unit SC [facility] Lorazepam (Ativan) 1 mg PO Q4H PRN PRN Reason: severe agitation Last Admin: 03/09/17 15:15 Dose: 1 mg Metoprolol Succinate (Toprol Xl) 50 mg PO DAILY [facility] Last Admin: 03/10/17 09:23 Dose: 50 mg Rosuvastatin Calcium (Crestor) 10 mg PO HS [facility] Last Admin: 03/10/17 21:31 Dose: 10 mg - Labs Labs: 03/10/17 07:15 03/10/17 07:15 Attending/Attestation - Attestation I have personally seen and examined this patient.: Yes I have fully participated in the care of the patient.: Yes I have reviewed all pertinent clinical information, including history, physical exam and plan: Yes Notes (Text): Patient seen and examined and case discussed with medical reimbursement manager. Patient continues to have labile sugars. Per nursing staff patient is eating all his meals. Patient received Lantus 30 units overnight. AM sugars: 53/55, Patient did not receive pre-meal insulin of 6 units given concern by nursing staff that he will become hypoglycemic. Patient is eating all his food at bedside. Will continue to monitor sugars. I have lowered evening Lantus 25 units subHS to prevent hypoglycemia in AM. Patient will start hctz 12.5mg once a day for blood pressure control. Patient has refused blood work for this morning. No new updates from case management. Assessment/Plan 1. Schizophrenia and Bipolar disorder Aggressive Behavior * Psychiatry consulted, Dr. Burdick, Dr. Lindo, and Dr. Javier help appreciated * Palliative Care: goals of care * Per discussion with palliative care (03/07/17), Mrs. Alcala states fear of her 's aggressive behavior when he is home and is asking for him to be placed to a terminal operations manager facility. She reports that at home, patient refuses to take his meds and insulin, becomes violent and presents threat to her and her child who is with Down Syndrome. She is also worried that her land lord would kick her out of the apartment because of his misbehavior . She is concerned about loosing place to live with her disabled child. I elicited her impression about patient's ability to make Medical decisions. Mrs. Alcala suggested that it was better not to talk to patient about it as he could get irritated and violent, as he has a habit of denying all of his diagnosis. She stated that they never discussed End of life care. She agreed to sign POLST if patient determined incompetent to make medical decisions. I allowed Mrs. Alcala to leave hospital without being seen by her , as I was concerned that after seeing her , Mr. Hill would get more irritated and aggressive about going home. * Psych is recommending [facility] [place] admission, patient is not eligible for [facility] admission given behaviors issue rather psychiatric issues. * Patient medically optimized for placement * [facility] [place] denied the patient on 03/01/17 in the evening stating that his issue is a behavioral one not a psychiatric issue * Per Dr. Lindo, patient is stable for discharge from psychiatric perspective prior visit. However, Latest psych note (03/07/17): He is adherent to his meds but has minimal insight and is NOT able to take care of ADLs, meds, blood sugar , even basic needs without help/support or guidance. His psych condition is NO longer affecting him as negatively and he NO longer needs inpatient psych admission. However, he does NOT have the capacity to make medical decisions, as he does not grasp his conditions properly, nor is able to take care of self by himself. His is refusing to take him back fearing he will stop meds and relapse again, plus she is already taking care of their down syndrome son. Refer to terminal operations manager placement. This patient should not be allowed to sign AMA * During hospitalization, patient refuses blood works and has refused bloodwork for the past two days. Patient has allowed for blood work today. * Abilify 5mg PO BID * Depakote 500mg PO BID * Haldol 5mg [id number] agitation/ IM Q1H aggression * Ativan 1mg PO Q4H PRN severe agitation 2. History of Uncontrolled Diabetes Mellitus, non-compliant * Endocrine on consult, Dr Hernandez, help appreciated- * Sugars are liable afebrile * HgA1C 02/2017 - 13.4 * Accuchecks QAC and H * Note: patient refuses blood works at times and sugars and at times refuses to eat. However, he has been eating very well for the past three days per discussion with nursing staff. * CXR shows no active disease but evidence of COPD * Blood cultures: negative * urine cx: <10,000 CFU contamination * procalcitonin, amylase, lipase were all unremarkable * Endocrine on consult, Dr Hernandez, help appreciated- * Novolog sliding scale subq * Novolog 6 units subq AC * Lantus 25 units subHS * Continue Crestor 10mg PO HS * Hold Lisinopril to prevent hyperkalemia * Hypoglycemic protocol 3. Hyperkalemia (Resolved) * Normalized 4. Normacytic Anemia (Stable) * Chronic in nature, Hgb at baseline * No active bleeding at this time * Will continue to monitor 5. History of Coronary Artery Disease * Continue ASA and plavix daily 6. History of Hypertension * Continue Toprol XL 50mg PO daily * start HCTZ 12.5mg PO once a day 7. History of Hyperlipidemia * Increased Crestor to 10mg daily due to LDL given diabetic status * Lipid panel from 02/2017 * Triglycerides - 225 * Cholesterol - 209 * LDL - 101 * HDL - 56 8_ Prophylactic measures * Lovenox 40mg SC daily Disposition: * Patient is medical optimized. However, [facility] psych has refused the patient. Our patient is not eligible per inpatient psych at [facility] as per 03/07/17 Psych note. Will need to work with social and case management for detention placement for the patient. * Patient cannot AMA. * F/u case management and social work in regards to placement
--- NOTE | 2017-03-11 01:32 | PN ---
ENDOCRINOLOGY FOLLOWUP NOTE DATE: LOCATION: Room 359. SUBJECTIVE: This is a 56-year-old male with recent uncontrolled type 2 insulin-requiring diabetes with persistent glycemic fluctuations ranging from hypoglycemic to hyperglycemic accelerations and this is now being followed closely for metabolic management. His oral intake also continues to be quite variable as per the nursing staff. His glucose has varied from 235 to 296 mg/dL. The latest chemistry showed a BUN of 31, sodium 131, potassium 4.5, chloride 96, CO2 of 29, glucose 206 and creatinine of 0.2. So at this time, we will continue again the basal and bolus insulin regimen to allow for dose equilibration and keep him on the Lantus given as 3 units subcu at bedtime daily as given. We will continue the NovoLog given as 8 units subcu t.i.d. before meals as ordered. We will titrate incrementally as indicated to optimize metabolic control. We will follow. Brook Hernandez MD
[2017-03-11] MEDS: (Novolog) Insulin Aspart, Recombinant 100 u/ml 10 ml vial SC SCH ×7 (07:40→21:55)
[2017-03-11] MEDS ORDERED: (Lantus) Insulin Glargine, Recombinant SC SCH (07:43)
[2017-03-11] MEDS: Metoprolol Succinate 50 mg XL Tab PO SCH (09:52)
[2017-03-11] MEDS: Enoxaparin 40 mg Syringe SC SCH (09:53)
[2017-03-11] MEDS: Divalproex 250 mg DR Tab PO SCH ×2 (09:53→18:05)
--- NOTE | 2017-03-11 13:26 | PN ---
DATE: ENDOCRINOLOGY FOLLOWUP NOTE LOCATION: Room 359. SUBJECTIVE: This is a 56-year-old male with recent uncontrolled type 2 insulin requiring diabetes, who continues to have extremes of glycemic fluctuations from symptomatic hypoglycemia to hyperglycemic acceleration as noted thereof. Today at lunch time, his glucose levels dropped to 28 with a repeat level of 36 mg/dL. His glucose levels subsequent to that have ranged from 158 to 319 mg/dL. LABORATORY DATA: His latest chemistry showed a BUN of 31, sodium 133, potassium 4.5, chloride 98, CO2 of 30, glucose 195 and creatinine 1.2. ASSESSEMENT AND PLAN: So at this time, we will modify once again his basal and bolus insulin regimen and lower the NovoLog to 6 units subcutaneously t.i.d. before meals to start today as ordered. We also continue the Lantus given as 30 units subcutaneously at bedtime daily as ordered. We will obtain serum chemistries and supplement accordingly as needed. We will follow with you. Brook Hernandez MD
--- NOTE | 2017-03-12 01:38 | CP.PCM.PN ---
<Radha Wells - Last Filed: 03/12/17 06:37> Subjective - Date & Time of Evaluation Date of Evaluation: 03/12/17 Time of Evaluation: 01:37 - Subjective Subjective: Medicine Progress Note: Hospitalist Service Patient seen and examined at bedside. Per nursing no acute events overnight. Patient is doing well, offers no complaints at this time. Blood sugar this morning was 155. Denies headaches, dizziness, cp, palpitations, sob, abdominal pain, urinary symptoms, changes in bowel habits. Objective - Vital Signs/Intake and Output Vital Signs (last 24 hours): Temp Pulse Resp BP Pulse Ox 98.7 F 85 20 147/85 97 03/11/17 23:37 03/11/17 23:37 03/11/17 23:37 03/11/17 23:37 03/11/17 23:37 Intake and Output: 03/11/17 03/12/17 18:59 06:59 Intake Total 550 600 Balance 550 600 - Medications Medications: Current Medications Acetaminophen (Tylenol 325mg Tab) 650 mg PO Q6 PRN PRN Reason: pain. Last Admin: 03/08/17 19:54 Dose: 650 mg Aripiprazole (Abilify) 5 mg PO BID [facility] Last Admin: 03/11/17 18:05 Dose: 5 mg Aspirin (Ecotrin) 81 mg PO DAILY [facility] Last Admin: 03/11/17 09:52 Dose: 81 mg Clopidogrel Bisulfate (Plavix) 75 mg PO DAILY [facility] Last Admin: 03/11/17 09:53 Dose: 75 mg Dextrose (Dextrose 50% Inj) 0 ml IV STAT PRN; Protocol PRN Reason: Hypoglycemia Protocol Last Admin: 03/10/17 12:07 Dose: 50 ml Dextrose (Glutose 15) 0 gm PO ONCE PRN; Protocol PRN Reason: Hypoglycemia Protocol Last Admin: 03/10/17 05:24 Dose: 15 gm Divalproex Sodium (Depakote Dr) 750 mg PO BID [facility] Last Admin: 03/11/17 18:05 Dose: 750 mg Enoxaparin Sodium (Lovenox) 40 mg SC DAILY [facility] Last Admin: 03/11/17 09:53 Dose: 40 mg Glucagon (Glucagen Diagnostic Kit) 0 mg IM STAT PRN; Protocol PRN Reason: Hypoglycemia Protocol Haloperidol (Haldol) 5 mg PO Q1H PRN PRN Reason: agitation max 4x/24h Last Admin: 03/05/17 17:52 Dose: 5 mg Haloperidol Lactate (Haldol) 5 mg IM Q1H PRN PRN Reason: aggression max 4x/24h Last Admin: 02/26/17 20:13 Dose: 5 mg Hydrochlorothiazide (Microzide) 12.5 mg PO DAILY [facility] Last Admin: 03/11/17 10:13 Dose: 12.5 mg Dextrose (Dextrose 5% In Water 1000 Ml) 1,000 mls @ 0 mls/hr IV .Q0M PRN; Protocol; Per Protocol PRN Reason: Hypoglycemia Protocol Insulin Aspart (Novolog) 0 unit SC [facility] PRN Reason: Protocol Last Admin: 03/11/17 21:55 Dose: Not Given Insulin Aspart (Novolog) 8 unit SC [facility] Insulin Glargine (Lantus) 25 unit SC [facility] Last Admin: 03/11/17 22:00 Dose: 25 unit Lorazepam (Ativan) 1 mg PO Q4H PRN PRN Reason: severe agitation Last Admin: 03/09/17 15:15 Dose: 1 mg Metoprolol Succinate (Toprol Xl) 50 mg PO DAILY [facility] Last Admin: 03/11/17 09:52 Dose: 50 mg Rosuvastatin Calcium (Crestor) 10 mg PO [facility] Last Admin: 03/11/17 21:53 Dose: 10 mg - Labs Labs: 03/10/17 07:15 03/10/17 07:15 - Additional Findings Additional findings: - Additional Findings Additional findings: Appears: No Acute Distress - Head Exam Head Exam: ATRAUMATIC, NORMOCEPHALIC - Eye Exam Eye Exam: EOMI, Normal appearance - ENT Exam ENT Exam: Mucous Membranes Moist - Respiratory Exam Respiratory Exam: Clear to Ausculation Bilateral. absent: Rales, Rhonchi, Wheezes - Cardiovascular Exam Cardiovascular Exam: REGULAR RHYTHM, +S1, +S2 - GI/Abdominal Exam GI & Abdominal Exam: Soft, Normal Bowel Sounds. absent: Distended, Tenderness - Extremities Exam Extremities Exam: absent: Pedal Edema, Tenderness - Neurological Exam Neurological Exam: Alert, Awake - Psychiatric Exam Psychiatric exam: Normal Affect, Normal Mood - Skin Skin Exam: Dry, Intact, Normal Color, Warm Assessment and Plan - Assessment and Plan (Free Text) Assessment: 56 year old male with PMHx bipolar, schizophrenia, dementia, CAD, CHF, diabetes , DKA, HTN, anemia who presents to the hospital brought in for psychotic behavior. Found to have uncontrolled diabetes. Currently [place] [facility] [place]. Plan: 1. Schizophrenia and Bipolar disorder * Psychiatry consulted, Dr. Burdick, help appreciated * Psych was recommending [facility] evaluation for ingredient specialist care * Patient medically optimized for placement * [facility] screening denied the patient on 03/01/17 in the evening stating that his issue is a behavioral one not a psychiatric issue * Per Dr. Lindo, patient is stable for discharge from psychiatric perspective prior visit. However, Latest psych note (03/07/17): He is adherent to his meds but has minimal insight and is NOT able to take care of ADLs, meds, blood sugar , even basic needs without help/support or guidance. His psych condition is NO longer affecting him as negatively and he NO longer needs inpatient psych admission. However, he does NOT have the capacity to make medical decisions, as he does not grasp his conditions properly, nor is able to take care of self by himself. His is refusing to take him back fearing he will stop meds and relapse again, plus she is already taking care of their down syndrome son. Refer to ingredient specialist placement. This patient should not be allowed to sign AMA * Consulted Palliative Care for Goals of care. - Mrs. Alcala stated that they never discussed End of life care. She agreed to sign POLST if patient determined incompetent to make medical decisions * Medical Management per psych team * Continue Abilify 5mg PO BID, Depakote 750mg PO BID * Haldol 5mg [id number] agitation/ IM Q1H aggression * Ativan 1mg PO Q4H PRN severe agitatio 2. History of Uncontrolled Diabetes Mellitus, non-compliant * Stable, afebrile * HgA1C 02/2017 - 13.4 * Accuchecks today range from 136-414 * CXR shows no active disease but evidence of COPD * UA shows 1+ protein, 3+glucose and 6-10 hyaline casts * Blood cx no growth for 5 days, urine cx <10,000 CFU contamination * Procalcitonin, amylase, lipase were all unremarkable * Endocrine on consult, Dr Hernandez, help appreciated- * Novolog 8 units AC * ISS, accuchecks ACHS * Lantus 30 Units HS - Lantus decreased to 25 units HS to prevent AM hypoglycemic episodes * Continue Crestor 10mg PO daily * Will consider adding lisinopril for renal protection * Hypoglycemic protocol 3. Hyperkalemia (Resolved) * Potassium was 5.8 on admission, patient was given insulin * Will continue to monitor * Patient has been refusing blood work 4. Normacytic Anemia (Stable) * Chronic in nature, Hgb at baseline * No active bleeding at this time * Will continue to monitor 5. History of Coronary Artery Disease * Continue ASA and plavix daily * Continue Crestor 10mp PO HS 6. History of Hypertension * Continue Toprol XL 50mg PO daily * Added HCTZ 12.5mg PO daily * SBPs improved this evening, will continue to monitor 7. History of Hyperlipidemia * Increased Crestor to 10mg daily due to LDL given diabetic status * Lipid panel from 02/2017 * Triglycerides - 225 * Cholesterol - 209 * LDL - 101 * HDL - 56 Prophylactic measures * Lovenox 40mg SC daily Disposition: * Patient is medical optimized. However, [facility] psych has refused the patient. Our patient is not eligible per inpatient psych at [facility] as per 03/07/17 Psych note. Will need to work with social and case management for [place] [facility] [place] placement for the patient. * Patient cannot AMA. <Lashell Pappas V - Last Filed: 03/12/17 08:54> Objective - Vital Signs/Intake and Output Vital Signs (last 24 hours): Temp Pulse Resp BP Pulse Ox 98.0 F 81 20 168/86 H 100 03/12/17 07:55 03/12/17 07:55 03/12/17 07:55 03/12/17 07:55 03/12/17 07:55 Intake and Output: 03/12/17 03/12/17 06:59 18:59 Intake Total 600 200 Balance 600 200 - Medications Medications: Current Medications Acetaminophen (Tylenol 325mg Tab) 650 mg PO Q6 PRN PRN Reason: pain. Last Admin: 03/08/17 19:54 Dose: 650 mg Aripiprazole (Abilify) 5 mg PO BID [facility] Last Admin: 03/11/17 18:05 Dose: 5 mg Aspirin (Ecotrin) 81 mg PO DAILY [facility] Last Admin: 03/11/17 09:52 Dose: 81 mg Clopidogrel Bisulfate (Plavix) 75 mg PO DAILY [facility] Last Admin: 03/11/17 09:53 Dose: 75 mg Dextrose (Dextrose 50% Inj) 0 ml IV STAT PRN; Protocol PRN Reason: Hypoglycemia Protocol Last Admin: 03/10/17 12:07 Dose: 50 ml Dextrose (Glutose 15) 0 gm PO ONCE PRN; Protocol PRN Reason: Hypoglycemia Protocol Last Admin: 03/10/17 05:24 Dose: 15 gm Divalproex Sodium (Depakote Dr) 750 mg PO BID [facility] Last Admin: 03/11/17 18:05 Dose: 750 mg Enoxaparin Sodium (Lovenox) 40 mg SC DAILY [facility] Last Admin: 03/11/17 09:53 Dose: 40 mg Glucagon (Glucagen Diagnostic Kit) 0 mg IM STAT PRN; Protocol PRN Reason: Hypoglycemia Protocol Haloperidol (Haldol) 5 mg PO Q1H PRN PRN Reason: agitation max 4x/24h Last Admin: 03/05/17 17:52 Dose: 5 mg Haloperidol Lactate (Haldol) 5 mg IM Q1H PRN PRN Reason: aggression max 4x/24h Last Admin: 02/26/17 20:13 Dose: 5 mg Hydrochlorothiazide (Microzide) 12.5 mg PO DAILY [facility] Last Admin: 03/11/17 10:13 Dose: 12.5 mg Dextrose (Dextrose 5% In Water 1000 Ml) 1,000 mls @ 0 mls/hr IV .Q0M PRN; Protocol; Per Protocol PRN Reason: Hypoglycemia Protocol Insulin Aspart (Novolog) 0 unit SC [facility] PRN Reason: Protocol Last Admin: 03/12/17 07:52 Dose: Not Given Insulin Aspart (Novolog) 8 unit SC AC [facility] Last Admin: 03/12/17 07:52 Dose: Not Given Insulin Glargine (Lantus) 18 unit SC HS [facility] Lorazepam (Ativan) 1 mg PO Q4H PRN PRN Reason: severe agitation Last Admin: 03/09/17 15:15 Dose: 1 mg Metoprolol Succinate (Toprol Xl) 50 mg PO DAILY [facility] Last Admin: 03/11/17 09:52 Dose: 50 mg Rosuvastatin Calcium (Crestor) 10 mg PO HS [facility] Last Admin: 03/11/17 21:53 Dose: 10 mg - Labs Labs: 03/10/17 07:15 03/10/17 07:15 Attending/Attestation - Attestation I have personally seen and examined this patient.: Yes I have fully participated in the care of the patient.: Yes I have reviewed all pertinent clinical information, including history, physical exam and plan: Yes Notes (Text): Patient seen and examined and case discussed with medical office secretary. Patient continues to have labile sugars. Per nursing staff patient is eating all his meals. Patient received Lantus 245units last night. This AM, patient had 7:45AM--> Sugars were: 51-->44 (juice juice),/42 (D50 Ampule) went up to 102. Patient is asymptomatic. We will continue to monitor sugars. Patient will start hctz 12.5mg once a day for blood pressure control yesterday. Patient has refused blood work this week. No new updates from case management. Assessment/Plan 1. Schizophrenia and Bipolar disorder Aggressive Behavior * Psychiatry consulted, Dr. Burdick, Dr. Lindo, and Dr. Javier help appreciated * Palliative Care: goals of care * Per discussion with palliative care (03/07/17), Mrs. Alcala states fear of her 's aggressive behavior when he is home and is asking for him to be placed to a ingredient specialist facility. She reports that at home, patient refuses to take his meds and insulin, becomes violent and presents threat to her and her child who is with Down Syndrome. She is also worried that her land lord would kick her out of the apartment because of his misbehavior . She is concerned about loosing place to live with her disabled child. I elicited her impression about patient's ability to make Medical decisions. Mrs. Alcala suggested that it was better not to talk to patient about it as he could get irritated and violent, as he has a habit of denying all of his diagnosis. She stated that they never discussed End of life care. She agreed to sign POLST if patient determined incompetent to make medical decisions. I allowed Mrs. Alcala to leave hospital without being seen by her , as I was concerned that after seeing her , Mr. Hill would get more irritated and aggressive about going home. * Psych is recommending [facility] evaluation on admission, patient is not eligible for [facility] admission given behaviors issue rather psychiatric issues. * Patient medically optimized for placement * [facility] screening denied the patient on 03/01/17 in the evening stating that his issue is a behavioral one not a psychiatric issue * Per Dr. Lindo, patient is stable for discharge from psychiatric perspective prior visit. However, Latest psych note (03/07/17): He is adherent to his meds but has minimal insight and is NOT able to take care of ADLs, meds, blood sugar , even basic needs without help/support or guidance. His psych condition is NO longer affecting him as negatively and he NO longer needs inpatient psych admission. However, he does NOT have the capacity to make medical decisions, as he does not grasp his conditions properly, nor is able to take care of self by himself. His is refusing to take him back fearing he will stop meds and relapse again, plus she is already taking care of their down syndrome son. [place]er [place] [facility] [place]. This patient should not be allowed to sign AMA * During hospitalization, patient refuses blood works and has refused bloodwork for the past two days. Patient has allowed for blood work today. * Abilify 5mg PO BID * Depakote 500mg PO BID * Haldol 5mg [id number] agitation/ IM Q1H aggression * Ativan 1mg PO Q4H PRN severe agitation 2. History of Uncontrolled Diabetes Mellitus, non-compliant * Endocrine on consult, Dr Hernandez, help appreciated- * Sugars are liable afebrile * HgA1C 02/2017 - 13.4 * Accuchecks QAC and H * Note: patient refuses blood works at times and sugars and at times refuses to eat. However, he has been eating very well for the past three days per discussion with nursing staff. * CXR shows no active disease but evidence of COPD * Blood cultures: negative * urine cx: <10,000 CFU contamination * procalcitonin, amylase, lipase were all unremarkable * Endocrine on consult, Dr Hernandez, help appreciated- * Novolog sliding scale subq * Novolog 6 units subq AC * Lantus 25 units subHS * Continue Crestor 10mg PO HS * Hold Lisinopril to prevent hyperkalemia * Hypoglycemic protocol 3. Hyperkalemia (Resolved) * Normalized 4. Normacytic Anemia (Stable) * Chronic in nature, Hgb at baseline * No active bleeding at this time * Will continue to monitor 5. History of Coronary Artery Disease * Continue ASA and plavix daily 6. History of Hypertension * Continue Toprol XL 50mg PO daily * start HCTZ 12.5mg PO once a day 7. History of Hyperlipidemia * Increased Crestor to 10mg daily due to LDL given diabetic status * Lipid panel from 02/2017 * Triglycerides - 225 * Cholesterol - 209 * LDL - 101 * HDL - 56 8_ Prophylactic measures * Lovenox 40mg SC daily Disposition: * Patient is medical optimized. However, [facility] psych has refused the patient. Our patient is not eligible per inpatient psych at [facility] as per 03/07/17 Psych note. Will need to work with social and case management for [place] [facility] [place] placement for the patient. * Patient cannot AMA. * F/u case management and social work in regards to placement * F/u Sugars-->Continue to be liable in the AM.
[2017-03-12] MEDS: (Novolog) Insulin Aspart, Recombinant 100 u/ml 10 ml vial SC SCH ×7 (07:52→21:43)
[2017-03-12] MEDS ORDERED: Dextrose 50% SYRINGE Inj (50 ml) ONE (08:13)
[2017-03-12] MEDS: Enoxaparin 40 mg Syringe SC SCH (09:54)
[2017-03-12] MEDS: Metoprolol Succinate 50 mg XL Tab PO SCH (09:55)
[2017-03-12] MEDS: Divalproex 250 mg DR Tab PO SCH ×2 (09:55→18:50)
--- NOTE | 2017-03-12 13:03 | PN ---
DATE: ENDOCRINOLOGY FOLLOWUP NOTE LOCATION: Room 359. SUBJECTIVE: This is a 56-year-old male with recent uncontrolled type 2 insulin-requiring diabetes, presenting here with hyperosmolar hyperglycemic state and dehydration and since has improved clinically and metabolically as noted thereof. 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 The latest fasting glucose was actually 44 mg/dL with a bedtime glucose of 136, and a 2:00 a.m. glucose of 155 mg/dL. So, at this time, we will modify once again his basal and bolus insulin regimen and lower the Levemir to 18 units subcu at bedtime daily to start tonight. We will also increase the NovoLog to 8 units subcu t.i.d. before meals as ordered. We will titrate incrementally as indicated to optimize metabolic control. We will follow. Brook Hernandez MD
[2017-03-12] MEDS: (Lantus) Insulin Glargine, Recombinant SC SCH (21:46)
[2017-03-13] MEDS: (Novolog) Insulin Aspart, Recombinant 100 u/ml 10 ml vial SC SCH ×7 (08:14→21:43)
[2017-03-13] MEDS: Metoprolol Succinate 50 mg XL Tab PO SCH (09:16)
[2017-03-13] MEDS: Divalproex 250 mg DR Tab PO SCH ×2 (09:17→17:18)
[2017-03-13] MEDS: Enoxaparin 40 mg Syringe SC SCH (09:17)
--- NOTE | 2017-03-13 17:01 | PN ---
DATE: ENDOCRINOLOGY FOLLOWUP NOTE LOCATION: Room 359. SUBJECTIVE: This is a 56-year-old male with recent uncontrolled type 2 insulin-requiring diabetes with extremes of glycemic fluctuations and today's glucose levels have improved remarkably overnight as noted. His glucose levels have ranged from 126 to 241 and 250 mg/dL. His latest chemistries showed a BUN of 31, sodium 133, potassium 4.5, chloride 98, CO2 of 30, glucose 195, and creatinine 1.2. So, at this time, we will continue the same basal and bolus insulin regimen to allow for dose equilibration and keep him on the Lantus given as 18 units subcu at bedtime daily as ordered with NovoLog given as 8 units subcu t.i.d. before meals as ordered. We will titrate incrementally as indicated to optimize metabolic control. We will obtain serial chemistries and supplement accordingly as needed. We will follow. Brook Hernandez MD
--- NOTE | 2017-03-13 20:16 | CP.PCM.PN ---
<Cy Mcdonald - Last Filed: 03/13/17 20:10> Subjective - Date & Time of Evaluation Date of Evaluation: 03/13/17 Time of Evaluation: 10:00 - Subjective Subjective: Patient seen and examined at bedside. Per nursing no acute events overnight. Patient is doing well, offers no complaints at this time. Denies headaches, dizziness, cp, palpitations, sob, abdominal pain, urinary symptoms, changes in bowel habits. Objective - Vital Signs/Intake and Output Vital Signs (last 24 hours): Temp Pulse Resp BP Pulse Ox 98.5 F 81 20 164/80 H 99 03/13/17 15:00 03/13/17 16:06 03/13/17 15:00 03/13/17 16:06 03/13/17 16:06 Intake and Output: 03/13/17 03/14/17 18:59 06:59 Intake Total 900 Balance 900 - Medications Medications: Current Medications Acetaminophen (Tylenol 325mg Tab) 650 mg PO Q6 PRN PRN Reason: pain. Last Admin: 03/08/17 19:54 Dose: 650 mg Aripiprazole (Abilify) 5 mg PO BID [facility] Last Admin: 03/13/17 17:18 Dose: 5 mg Aspirin (Ecotrin) 81 mg PO DAILY [facility] Last Admin: 03/13/17 09:19 Dose: 81 mg Clopidogrel Bisulfate (Plavix) 75 mg PO DAILY [facility] Last Admin: 03/13/17 09:16 Dose: 75 mg Dextrose (Dextrose 50% Inj) 0 ml IV STAT PRN; Protocol PRN Reason: Hypoglycemia Protocol Last Admin: 03/10/17 12:07 Dose: 50 ml Dextrose (Glutose 15) 0 gm PO ONCE PRN; Protocol PRN Reason: Hypoglycemia Protocol Last Admin: 03/10/17 05:24 Dose: 15 gm Divalproex Sodium (Depakote Dr) 750 mg PO BID [facility] Last Admin: 03/13/17 17:18 Dose: 750 mg Enoxaparin Sodium (Lovenox) 40 mg SC DAILY [facility] Last Admin: 03/13/17 09:17 Dose: 40 mg Glucagon (Glucagen Diagnostic Kit) 0 mg IM STAT PRN; Protocol PRN Reason: Hypoglycemia Protocol Haloperidol (Haldol) 5 mg PO Q1H PRN PRN Reason: agitation max 4x/24h Last Admin: 03/13/17 17:18 Dose: 5 mg Haloperidol Lactate (Haldol) 5 mg IM Q1H PRN PRN Reason: aggression max 4x/24h Last Admin: 02/26/17 20:13 Dose: 5 mg Hydrochlorothiazide (Microzide) 12.5 mg PO DAILY [facility] Last Admin: 03/13/17 09:17 Dose: 12.5 mg Dextrose (Dextrose 5% In Water 1000 Ml) 1,000 mls @ 0 mls/hr IV .Q0M PRN; Protocol; Per Protocol PRN Reason: Hypoglycemia Protocol Insulin Aspart (Novolog) 0 unit SC ACHS [facility] PRN Reason: Protocol Last Admin: 03/13/17 17:19 Dose: Not Given Insulin Aspart (Novolog) 8 unit SC AC [facility] Last Admin: 03/13/17 17:18 Dose: 8 unit Insulin Glargine (Lantus) 18 unit SC [facility] Last Admin: 03/12/17 21:46 Dose: 18 unit Lorazepam (Ativan) 1 mg PO Q4H PRN PRN Reason: severe agitation Last Admin: 03/13/17 17:18 Dose: 1 mg Metoprolol Succinate (Toprol Xl) 50 mg PO DAILY [facility] Last Admin: 03/13/17 09:16 Dose: 50 mg Rosuvastatin Calcium (Crestor) 10 mg PO [facility] Last Admin: 03/12/17 21:41 Dose: 10 mg - Labs Labs: 03/10/17 07:15 03/10/17 07:15 - Additional Findings Additional findings: - Constitutional Appears: No Acute Distress - Head Exam Head Exam: ATRAUMATIC, NORMOCEPHALIC - Eye Exam Eye Exam: EOMI, Normal appearance - ENT Exam ENT Exam: Mucous Membranes Moist - Respiratory Exam Respiratory Exam: Clear to Ausculation Bilateral. absent: Rales, Rhonchi, Wheezes - Cardiovascular Exam Cardiovascular Exam: REGULAR RHYTHM, +S1, +S2 - GI/Abdominal Exam GI & Abdominal Exam: Soft, Normal Bowel Sounds. absent: Distended, Tenderness - Extremities Exam Extremities Exam: absent: Pedal Edema, Tenderness - Neurological Exam Neurological Exam: Alert, Awake - Psychiatric Exam Psychiatric exam: Normal Affect, Normal Mood - Skin Skin Exam: Dry, Intact, Normal Color, Warm Assessment and Plan - Assessment and Plan (Free Text) Assessment: 56 year old male with PMHx bipolar, schizophrenia, dementia, CAD, CHF, diabetes , DKA, HTN, anemia who presents to the hospital brought in for psychotic behavior. Found to have uncontrolled diabetes. Currently awaiting longterm placement. Plan: 1. Schizophrenia and Bipolar disorder * Psychiatry consulted, Dr. uBrdick, help appreciated * Psych was recommending [facility] evaluation for longterm care * Patient medically optimized for placement * [facility] screening denied the patient on 03/01/17 in the evening stating that his issue is a behavioral one not a psychiatric issue * Per Dr. Lindo, patient is stable for discharge from psychiatric perspective prior visit. However, Latest psych note (03/07/17): He is adherent to his meds but has minimal insight and is NOT able to take care of ADLs, meds, blood sugar , even basic needs without help/support or guidance. His psych condition is NO longer affecting him as negatively and he NO longer needs inpatient psych admission. However, he does NOT have the capacity to make medical decisions, as he does not grasp his conditions properly, nor is able to take care of self by himself. His is refusing to take him back fearing he will stop meds and relapse again, plus she is already taking care of their down syndrome son. Refer to longterm placement. This patient should not be allowed to sign AMA * Consulted Palliative Care for Goals of care. - Mrs. Alcala stated that they never discussed End of life care. She agreed to sign POLST if patient determined incompetent to make medical decisions * Medical Management per psych team * Continue Abilify 5mg PO BID, Depakote 750mg PO BID * Haldol 5mg [id number] agitation/ IM Q1H aggression * Ativan 1mg PO Q4H PRN severe agitatio 2. History of Uncontrolled Diabetes Mellitus, non-compliant * Stable, afebrile * HgA1C 02/2017 - 13.4 * Accuchecks today range from 136-414 * CXR shows no active disease but evidence of COPD * UA shows 1+ protein, 3+glucose and 6-10 hyaline casts * Blood cx no growth for 5 days, urine cx <10,000 CFU contamination * Procalcitonin, amylase, lipase were all unremarkable * Endocrine on consult, Dr Hernandez, help appreciated- * Novolog 8 units AC * ISS, accuchecks ACHS * Lantus 18 Units HS - Lantus decreased to 25 units HS to prevent AM hypoglycemic episodes * Continue Crestor 10mg PO daily * Will consider adding lisinopril for renal protection * Hypoglycemic protocol 3. Hyperkalemia (Resolved) * Potassium was 5.8 on admission, patient was given insulin * Will continue to monitor * Patient has been refusing blood work 4. Normacytic Anemia (Stable) * Chronic in nature, Hgb at baseline * No active bleeding at this time * Will continue to monitor 5. History of Coronary Artery Disease * Continue ASA and plavix daily * Continue Crestor 10mp PO HS 6. History of Hypertension * Continue Toprol XL 50mg PO daily * Added HCTZ 12.5mg PO daily * SBPs improved this evening, will continue to monitor 7. History of Hyperlipidemia * Increased Crestor to 10mg daily due to LDL given diabetic status * Lipid panel from 02/2017 * Triglycerides - 225 * Cholesterol - 209 * LDL - 101 * HDL - 56 Prophylactic measures * Lovenox 40mg SC daily Disposition: Awaiting [id number]. Patient discussed with Attending Cy Mcdonald - PGY1 <Raymond Wong - Last Filed: 03/13/17 20:32> Objective - Vital Signs/Intake and Output Vital Signs (last 24 hours): Temp Pulse Resp BP Pulse Ox 98.5 F 81 20 164/80 H 99 03/13/17 15:00 03/13/17 16:06 03/13/17 15:00 03/13/17 16:06 03/13/17 16:06 Intake and Output: 03/13/17 03/14/17 18:59 06:59 Intake Total 900 Balance 900 - Medications Medications: Current Medications Acetaminophen (Tylenol 325mg Tab) 650 mg PO Q6 PRN PRN Reason: pain. Last Admin: 03/08/17 19:54 Dose: 650 mg Aripiprazole (Abilify) 5 mg PO BID [facility] Last Admin: 03/13/17 17:18 Dose: 5 mg Aspirin (Ecotrin) 81 mg PO DAILY [facility] Last Admin: 03/13/17 09:19 Dose: 81 mg Clopidogrel Bisulfate (Plavix) 75 mg PO DAILY [facility] Last Admin: 03/13/17 09:16 Dose: 75 mg Dextrose (Dextrose 50% Inj) 0 ml IV STAT PRN; Protocol PRN Reason: Hypoglycemia Protocol Last Admin: 03/10/17 12:07 Dose: 50 ml Dextrose (Glutose 15) 0 gm PO ONCE PRN; Protocol PRN Reason: Hypoglycemia Protocol Last Admin: 03/10/17 05:24 Dose: 15 gm Divalproex Sodium (Depakote Dr) 750 mg PO BID [facility] Last Admin: 03/13/17 17:18 Dose: 750 mg Enoxaparin Sodium (Lovenox) 40 mg SC DAILY [facility] Last Admin: 03/13/17 09:17 Dose: 40 mg Glucagon (Glucagen Diagnostic Kit) 0 mg IM STAT PRN; Protocol PRN Reason: Hypoglycemia Protocol Haloperidol (Haldol) 5 mg PO Q1H PRN PRN Reason: agitation max 4x/24h Last Admin: 03/13/17 17:18 Dose: 5 mg Haloperidol Lactate (Haldol) 5 mg IM Q1H PRN PRN Reason: aggression max 4x/24h Last Admin: 02/26/17 20:13 Dose: 5 mg Hydrochlorothiazide (Microzide) 12.5 mg PO DAILY [facility] Last Admin: 03/13/17 09:17 Dose: 12.5 mg Dextrose (Dextrose 5% In Water 1000 Ml) 1,000 mls @ 0 mls/hr IV .Q0M PRN; Protocol; Per Protocol PRN Reason: Hypoglycemia Protocol Insulin Aspart (Novolog) 0 unit SC [facility] PRN Reason: Protocol Last Admin: 03/13/17 17:19 Dose: Not Given Insulin Aspart (Novolog) 8 unit SC AC [facility] Last Admin: 03/13/17 17:18 Dose: 8 unit Insulin Glargine (Lantus) 18 unit SC [facility] Last Admin: 03/12/17 21:46 Dose: 18 unit Lorazepam (Ativan) 1 mg PO Q4H PRN PRN Reason: severe agitation Last Admin: 03/13/17 17:18 Dose: 1 mg Metoprolol Succinate (Toprol Xl) 50 mg PO DAILY [facility] Last Admin: 03/13/17 09:16 Dose: 50 mg Rosuvastatin Calcium (Crestor) 10 mg PO [facility] Last Admin: 03/12/17 21:41 Dose: 10 mg - Labs Labs: 03/10/17 07:15 03/10/17 07:15 Attending/Attestation - Attestation I have personally seen and examined this patient.: Yes I have fully participated in the care of the patient.: Yes I have reviewed all pertinent clinical information, including history, physical exam and plan: Yes Notes (Text): 03/13/17 20:29 Hospitalist Progress Note Patient was seen and examined at 10:20 AM 03/13/17 359 A Exam, assessment and plan were thoroughly gone over with the resident Assessments: 1). Schizophrenia/Bipolar Disorder Abilify, Haldol PRN, Ativan PRN Psychiatry Dr. Magana/Guicho 2). DM 1 Aspart 8 units AC meals Lantus 18 units SC HS Hypoglycemic Protocol Aspart ISS ACHS 3). CAD/HF ASA, Plavix, Metoprolol, Crestor 4). HTN Metoprolol, Microzide 5). HLD Crestor 6). Anemia Chronic Disease Monitor Hgb/Hct 7). Hyperkalemia Resolved 8). Prophylaxis Lovenox Haldol 03/13/17: Spoke with Money Market Clerk Adam and patient's insurance has denied Resident Care Manager Rn Placement. Adam is in the process of appealing this decision as clearly this patient needs longterm placement considering that he can not take care of himself. Raymond Wong D.O.
[2017-03-13] MEDS: (Lantus) Insulin Glargine, Recombinant SC SCH (21:50)
[2017-03-14] MEDS: (Novolog) Insulin Aspart, Recombinant 100 u/ml 10 ml vial SC SCH ×6 (07:43→21:17)
[2017-03-14] MEDS: Metoprolol Succinate 50 mg XL Tab PO SCH (09:11)
[2017-03-14] MEDS: Divalproex 250 mg DR Tab PO SCH ×2 (09:11→17:12)
[2017-03-14] MEDS: Enoxaparin 40 mg Syringe SC SCH (09:12)
[2017-03-14 11:28] LABS: BASO # 0.1 K/uL (0.0-0.2); BASO % 0.8 % (0.0-2.0); EOS # 0.2 K/uL (0.0-0.7); EOS % 2.2 % (0.0-4.0); LYMPH # 3.1 K/uL (1.0-4.3); LYMPH % 39.8 % (20.0-40.0); MEAN CELL VOLUME 91.2 fL (80.0-94.0); MEAN CORPUSCULAR HEMOGLOBIN 32.1 pg (27.0-31.0); MEAN CORPUSCULAR HGB CONC 35.2 g/dL (33.0-37.0); MEAN PLATELET VOLUME 7.3 fL (7.2-11.7); MONO # 0.6 K/uL (0.0-0.8); MONO % 7.3 % (0.0-10.0); NEUT # 3.9 K/uL (1.8-7.0); NEUT % 49.9 % (50.0-75.0); RBC 2.82 Mil/uL (4.40-5.90); RED CELL DISTRIBUTION WIDTH 13.7 % (11.5-14.5); WHITE BLOOD COUNT 7.8 K/uL (4.8-10.8)
[2017-03-14 11:48] LABS: ALB/GLOB RATIO 1.4 (1.0-2.1); ALBUMIN 3.8 g/dL (3.5-5.0); ALT/SGPT 30 U/L (21-72); AST/SGOT 21 U/L (17-59); BLOOD UREA NITROGEN 33 mg/dL (9-20); CALCIUM 8.9 mg/dl (8.6-10.4); GFR AFRICAN-AMERICAN > 60; GFR NON-AFRICAN AMERICAN > 60
--- NOTE | 2017-03-14 12:26 | PN ---
DATE: ENDOCRINOLOGY FOLLOWUP NOTE LOCATION: Room 359. SUBJECTIVE: This is a 56-year-old male with recent uncontrolled type 2 insulin-requiring diabetes, now being followed closely for metabolic management. His glycemic levels once again are extremely fluctuating from hypo to hyperglycemic accelerations as noted thereof. His latest glucose levels overnight showed a glucose level of 219-454 mg/dL last night as noted. It was 158-330 mg/dL today as ordered. We will modify his current basal and bolus insulin regimen and increase the Lantus to 20 units subcu at bedtime daily to start tonight. We will also continue the same NovoLog given as 8 units subcu t.i.d. before meals as ordered. We will titrate incrementally as indicated to optimize metabolic control. We will follow and advise accordingly. Brook Hernandez MD
--- NOTE | 2017-03-14 20:08 | CP.PCM.PN ---
<Cy Mcdonald - Last Filed: 03/14/17 20:06> Subjective - Date & Time of Evaluation Date of Evaluation: 03/14/17 Time of Evaluation: 10:30 - Subjective Subjective: Patient seen and examined at bedside. Per nursing no acute events overnight. Patient is doing well, offers no complaints at this time. Denies headaches, dizziness, cp, palpitations, sob, abdominal pain, urinary symptoms, changes in bowel habits. Objective - Vital Signs/Intake and Output Vital Signs (last 24 hours): Temp Pulse Resp BP Pulse Ox 98.5 F 81 20 138/74 100 03/14/17 16:34 03/14/17 16:34 03/14/17 16:34 03/14/17 16:34 03/14/17 16:34 Intake and Output: 03/14/17 03/15/17 18:59 06:59 Intake Total 400 Output Total 1000 Balance -600 - Medications Medications: Current Medications Acetaminophen (Tylenol 325mg Tab) 650 mg PO Q6 PRN PRN Reason: pain. Last Admin: 03/08/17 19:54 Dose: 650 mg Aripiprazole (Abilify) 5 mg PO BID [facility] Last Admin: 03/14/17 17:57 Dose: 5 mg Aspirin (Ecotrin) 81 mg PO DAILY [facility] Last Admin: 03/14/17 09:12 Dose: 81 mg Clopidogrel Bisulfate (Plavix) 75 mg PO DAILY [facility] Last Admin: 03/14/17 09:13 Dose: 75 mg Dextrose (Dextrose 50% Inj) 0 ml IV STAT PRN; Protocol PRN Reason: Hypoglycemia Protocol Last Admin: 03/10/17 12:07 Dose: 50 ml Dextrose (Glutose 15) 0 gm PO ONCE PRN; Protocol PRN Reason: Hypoglycemia Protocol Last Admin: 03/10/17 05:24 Dose: 15 gm Divalproex Sodium (Depakote Dr) 750 mg PO BID [facility] Last Admin: 03/14/17 17:12 Dose: 750 mg Enoxaparin Sodium (Lovenox) 40 mg SC DAILY [facility] Last Admin: 03/14/17 09:12 Dose: 40 mg Glucagon (Glucagen Diagnostic Kit) 0 mg IM STAT PRN; Protocol PRN Reason: Hypoglycemia Protocol Haloperidol (Haldol) 5 mg PO Q1H PRN PRN Reason: agitation max 4x/24h Last Admin: 03/13/17 17:18 Dose: 5 mg Haloperidol Lactate (Haldol) 5 mg IM Q1H PRN PRN Reason: aggression max 4x/24h Last Admin: 02/26/17 20:13 Dose: 5 mg Hydrochlorothiazide (Hydrodiuril) 25 mg PO DAILY [facility] Dextrose (Dextrose 5% In Water 1000 Ml) 1,000 mls @ 0 mls/hr IV .Q0M PRN; Protocol; Per Protocol PRN Reason: Hypoglycemia Protocol Insulin Aspart (Novolog) 0 unit SC ACHS [facility] PRN Reason: Protocol Last Admin: 03/14/17 17:14 Dose: 4 unit Insulin Aspart (Novolog) 8 unit SC AC [facility] Last Admin: 03/14/17 17:11 Dose: 8 unit Insulin Glargine (Lantus) 20 unit SC HS [facility] Lorazepam (Ativan) 1 mg PO Q4H PRN PRN Reason: severe agitation Last Admin: 03/13/17 17:18 Dose: 1 mg Metoprolol Succinate (Toprol Xl) 50 mg PO DAILY [facility] Last Admin: 03/14/17 09:11 Dose: 50 mg Rosuvastatin Calcium (Crestor) 10 mg PO HS [facility] Last Admin: 03/13/17 21:42 Dose: 10 mg - Labs Labs: 03/14/17 11:08 03/14/17 11:08 - Additional Findings Additional findings: - Constitutional Appears: No Acute Distress - Head Exam Head Exam: ATRAUMATIC, NORMOCEPHALIC - Eye Exam Eye Exam: EOMI, Normal appearance - ENT Exam ENT Exam: Mucous Membranes Moist - Respiratory Exam Respiratory Exam: Clear to Ausculation Bilateral. absent: Rales, Rhonchi, Wheezes - Cardiovascular Exam Cardiovascular Exam: REGULAR RHYTHM, +S1, +S2 - GI/Abdominal Exam GI & Abdominal Exam: Soft, Normal Bowel Sounds. absent: Distended, Tenderness - Extremities Exam Extremities Exam: absent: Pedal Edema, Tenderness - Neurological Exam Neurological Exam: Alert, Awake - Psychiatric Exam Psychiatric exam: Normal Affect, Normal Mood - Skin Skin Exam: Dry, Intact, Normal Color, Warm Assessment and Plan - Assessment and Plan (Free Text) Assessment: 56 year old male with PMHx bipolar, schizophrenia, dementia, CAD, CHF, diabetes , DKA, HTN, anemia who presents to the hospital brought in for psychotic behavior. Found to have uncontrolled diabetes. Currently awaiting termite exterminator helper placement. Plan: 1. Schizophrenia and Bipolar disorder * Psychiatry consulted, Dr. Burdick, help appreciated * Psych was recommending [facility] [place] term[facility] exterminator helper care * Patient medically optimized for placement * [facility] screening denied the patient on 03/01/17 in the evening stating that his issue is a behavioral one not a psychiatric issue * Per Dr. Lindo, patient is stable for discharge from psychiatric perspective prior visit. However, Latest psych note (03/07/17): He is adherent to his meds but has minimal insight and is NOT able to take care of ADLs, meds, blood sugar , even basic needs without help/support or guidance. His psych condition is NO longer affecting him as negatively and he NO longer needs inpatient psych admission. However, he does NOT have the capacity to make medical decisions, as he does not grasp his conditions properly, nor is able to take care of self by himself. His is refusing to take him back fearing he will stop meds and relapse again, plus she is already taking care of their down syndrome son. Refer to termite exterminator helper placement. This patient should not be allowed to sign AMA * Consulted Palliative Care for Goals of care. - Mrs. Alcala stated that they never discussed End of life care. She agreed to sign POLST if patient determined incompetent to make medical decisions * Medical Management per psych team * Continue Abilify 5mg PO BID, Depakote 750mg PO BID * Haldol 5mg [id number] agitation/ IM Q1H aggression * Ativan 1mg PO Q4H PRN severe agitatio 2. History of Uncontrolled Diabetes Mellitus, non-compliant * Stable, afebrile * HgA1C 02/2017 - 13.4 * Accuchecks today range from 136-414 * CXR shows no active disease but evidence of COPD * UA shows 1+ protein, 3+glucose and 6-10 hyaline casts * Blood cx no growth for 5 days, urine cx <10,000 CFU contamination * Procalcitonin, amylase, lipase were all unremarkable * Endocrine on consult, Dr Hernandez, help appreciated- * Novolog 8 units AC * ISS, accuchecks ACHS * Lantus 18 Units HS - Lantus decreased to 25 units HS to prevent AM hypoglycemic episodes * Continue Crestor 10mg PO daily * Will consider adding lisinopril for renal protection * Hypoglycemic protocol 3. Hyperkalemia (Resolved) * Potassium was 5.8 on admission, patient was given insulin * Will continue to monitor * Patient has been refusing blood work 4. Normacytic Anemia (Stable) * Chronic in nature, Hgb at baseline * No active bleeding at this time * Will continue to monitor 5. History of Coronary Artery Disease * Continue ASA and plavix daily * Continue Crestor 10mp PO HS 6. History of Hypertension * Continue Toprol XL 50mg PO daily * HCTZ 12.5mg PO daily increased to 25mg PO Daily * SBPs improved this evening, will continue to monitor 7. History of Hyperlipidemia * Increased Crestor to 10mg daily due to LDL given diabetic status * Lipid panel from 02/2017 * Triglycerides - 225 * Cholesterol - 209 * LDL - 101 * HDL - 56 Prophylactic measures * Lovenox 40mg SC daily Disposition: Awaiting [id number]. Patient discussed with Attending Cy Mcdonald - PGY1 <Lashell Pappas V - Last Filed: 03/16/17 23:15> Objective - Vital Signs/Intake and Output Vital Signs (last 24 hours): Temp Pulse Resp BP Pulse Ox 98.5 F 72 20 156/81 H 100 03/16/17 15:00 03/16/17 15:00 03/16/17 15:00 03/16/17 15:00 03/16/17 15:00 Intake and Output: 03/16/17 03/17/17 18:59 06:59 Intake Total 500 Balance 500 - Medications Medications: Current Medications Acetaminophen (Tylenol 325mg Tab) 650 mg PO Q6 PRN PRN Reason: pain. Last Admin: 03/08/17 19:54 Dose: 650 mg Aripiprazole (Abilify) 5 mg PO BID [facility] Last Admin: 03/16/17 17:52 Dose: 5 mg Aspirin (Ecotrin) 81 mg PO DAILY [facility] Last Admin: 03/16/17 09:52 Dose: 81 mg Clopidogrel Bisulfate (Plavix) 75 mg PO DAILY [facility] Last Admin: 03/16/17 09:52 Dose: 75 mg Dextrose (Dextrose 50% Inj) 0 ml IV STAT PRN; Protocol PRN Reason: Hypoglycemia Protocol Last Admin: 03/10/17 12:07 Dose: 50 ml Dextrose (Glutose 15) 0 gm PO ONCE PRN; Protocol PRN Reason: Hypoglycemia Protocol Last Admin: 03/10/17 05:24 Dose: 15 gm Divalproex Sodium (Depakote Dr) 750 mg PO BID [facility] Last Admin: 03/16/17 17:52 Dose: 750 mg Enoxaparin Sodium (Lovenox) 40 mg SC DAILY [facility] Last Admin: 03/16/17 09:51 Dose: 40 mg Glucagon (Glucagen Diagnostic Kit) 0 mg IM STAT PRN; Protocol PRN Reason: Hypoglycemia Protocol Haloperidol (Haldol) 5 mg PO Q1H PRN PRN Reason: agitation max 4x/24h Last Admin: 03/13/17 17:18 Dose: 5 mg Haloperidol Lactate (Haldol) 5 mg IM Q1H PRN PRN Reason: aggression max 4x/24h Last Admin: 02/26/17 20:13 Dose: 5 mg Hydrochlorothiazide (Hydrodiuril) 25 mg PO DAILY [facility] Last Admin: 03/16/17 09:52 Dose: 25 mg Dextrose (Dextrose 5% In Water 1000 Ml) 1,000 mls @ 0 mls/hr IV .Q0M PRN; Protocol; Per Protocol PRN Reason: Hypoglycemia Protocol Insulin Aspart (Novolog) 0 unit SC ACHS [facility] PRN Reason: Protocol Last Admin: 03/16/17 21:57 Dose: 3 unit Insulin Aspart (Novolog) 10 unit SC AC [facility] Last Admin: 03/16/17 17:53 Dose: Not Given Insulin Glargine (Lantus) 20 unit SC [facility] Last Admin: 03/16/17 21:58 Dose: 20 u Lorazepam (Ativan) 1 mg PO Q4H PRN PRN Reason: severe agitation Last Admin: 03/13/17 17:18 Dose: 1 mg Metoprolol Succinate (Toprol Xl) 50 mg PO DAILY [facility] Last Admin: 03/16/17 09:52 Dose: 50 mg Rosuvastatin Calcium (Crestor) 10 mg PO HS [facility] Last Admin: 03/16/17 21:59 Dose: 10 mg - Labs Labs: 03/16/17 07:51 03/16/17 07:51 Attending/Attestation - Attestation I have personally seen and examined this patient.: Yes I have fully participated in the care of the patient.: Yes I have reviewed all pertinent clinical information, including history, physical exam and plan: Yes Notes (Text): This is late computer entry for 03/14/17. Patient seen and examined and case discussed with senior medical writer. Patient continues to have labile sugars. Per nursing staff patient is eating all his meals. Patient received Lantus 20 5units last night. We will continue to monitor sugars. Increased diuretic hctz 25mg once a day for blood pressure control given uncontrolled blood pressure Assessment/Plan 1. Schizophrenia and Bipolar disorder Aggressive Behavior * Psychiatry consulted, Dr. Burdick, Dr. Lindo, and Dr. Javier help appreciated * Palliative Care: goals of care * Per discussion with palliative care (03/07/17), Mrs. Alcala states fear of her 's aggressive behavior when he is home and is asking for him to be placed to a termite exterminator helper facility. She reports that at home, patient refuses to take his meds and insulin, becomes violent and presents threat to her and her child who is with Down Syndrome. She is also worried that her land lord would kick her out of the apartment because of his misbehavior . She is concerned about loosing place to live with her disabled child. I elicited her impression about patient's ability to make Medical decisions. Mrs. Alcala suggested that it was better not to talk to patient about it as he could get irritated and violent, as he has a habit of denying all of his diagnosis. She stated that they never discussed End of life care. She agreed to sign POLST if patient determined incompetent to make medical decisions. I allowed Mrs. Alcala to leave hospital without being seen by her , as I was concerned that after seeing her , Mr. Hill would get more irritated and aggressive about going home. * Psych is recommending [facility] [place] admission, patient is not eligible for [facility] admission given behaviors issue rather psychiatric issues. * Patient medically optimized for placement * [facility] [place] denied the patient on 03/01/17 in the evening stating that his issue is a behavioral one not a psychiatric issue * Per Dr. Lindo, patient is stable for discharge from psychiatric perspective prior visit. However, Latest psych note (03/07/17): He is adherent to his meds but has minimal insight and is NOT able to take care of ADLs, meds, blood sugar , even basic needs without help/support or guidance. His psych condition is NO longer affecting him as negatively and he NO longer needs inpatient psych admission. However, he does NOT have the capacity to make medical decisions, as he does not grasp his conditions properly, nor is able to take care of self by himself. His is refusing to take him back fearing he will stop meds and relapse again, plus she is already taking care of their down syndrome son. Refer to longterm placement. This patient should not be allowed to sign AMA * During hospitalization, patient refuses blood works and has refused bloodwork for the past two days. Patient has allowed for blood work today. * Abilify 5mg PO BID * Depakote 500mg PO BID * Haldol 5mg [id number] agitation/ IM Q1H aggression * Ativan 1mg PO Q4H PRN severe agitation 2. History of Uncontrolled Diabetes Mellitus, non-compliant * Endocrine on consult, Dr Hernandez, help appreciated- * Sugars are liable afebrile * HgA1C 02/2017 - 13.4 * Accuchecks QAC and H * Note: patient refuses blood works at times and sugars and at times refuses to eat. However, he has been eating very well for the past three days per discussion with nursing staff. * CXR shows no active disease but evidence of COPD * Blood cultures: negative * urine cx: <10,000 CFU contamination * procalcitonin, amylase, lipase were all unremarkable * Endocrine on consult, Dr Hernandez, help appreciated- * Novolog sliding scale subq * Novolog 8 units subq AC * Lantus 20 units subHS * Continue Crestor 10mg PO HS * Hold Lisinopril to prevent hyperkalemia * Hypoglycemic protocol 3. Hyperkalemia (Resolved) * Normalized 4. Normacytic Anemia (Stable) * Chronic in nature, Hgb at baseline * No active bleeding at this time * Will continue to monitor 5. History of Coronary Artery Disease * Continue ASA and plavix daily 6. History of Hypertension * Continue Toprol XL 50mg PO daily * increase HCTZ 25mg PO once a day 7. History of Hyperlipidemia * Increased Crestor to 10mg daily due to LDL given diabetic status * Lipid panel from 02/2017 * Triglycerides - 225 * Cholesterol - 209 * LDL - 101 * HDL - 56 8_ Prophylactic measures * Lovenox 40mg SC daily Disposition: * Patient is medical optimized. However, [facility] psych [place] refused the patient. Our patient is not eligible per inpatient psych at [facility] as per 03/07/17 Psych note. Will need to work with social and case management for longterm placement for the patient. 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 * Patient cannot AMA. * F/u case management and social work in regards to placement
[2017-03-14] MEDS: (Lantus) Insulin Glargine, Recombinant SC SCH (21:19)
[2017-03-15] MEDS: (Novolog) Insulin Aspart, Recombinant 100 u/ml 10 ml vial SC SCH ×7 (08:10→21:33)
[2017-03-15] MEDS: Divalproex 250 mg DR Tab PO SCH ×2 (09:30→18:02)
[2017-03-15] MEDS: Metoprolol Succinate 50 mg XL Tab PO SCH (09:30)
[2017-03-15] MEDS: Enoxaparin 40 mg Syringe SC SCH (09:30)
[2017-03-15] MEDS ORDERED: (Novolog) Insulin Aspart, Recombinant 100 u/ml 10 ml vial SC STA (13:08)
[2017-03-15] MEDS ORDERED: (Novolog) Insulin Aspart, Recombinant 100 u/ml 10 ml vial SC ONE (14:32)
--- NOTE | 2017-03-15 18:52 | CP.PCM.PN ---
<[email or web address] - Last Filed: 03/15/17 18:49> Subjective - Date & Time of Evaluation Date of Evaluation: 03/15/17 Time of Evaluation: 09:15 - Subjective Subjective: Patient seen and examined at bedside. Per nursing no acute events overnight. Patient is doing well, offers no complaints at this time. Denies headaches, dizziness, cp, palpitations, sob, abdominal pain, urinary symptoms, changes in bowel habits. Objective - Vital Signs/Intake and Output Vital Signs (last 24 hours): Temp Pulse Resp BP Pulse Ox 97.9 F 73 20 145/77 100 03/15/17 16:00 03/15/17 16:00 03/15/17 16:00 03/15/17 16:00 03/15/17 16:00 Intake and Output: 03/15/17 03/15/17 06:59 18:59 Intake Total 500 Balance 500 - Medications Medications: Current Medications Acetaminophen (Tylenol 325mg Tab) 650 mg PO Q6 PRN PRN Reason: pain. Last Admin: 03/08/17 19:54 Dose: 650 mg Aripiprazole (Abilify) 5 mg PO BID [facility] Last Admin: 03/15/17 18:01 Dose: 5 mg Aspirin (Ecotrin) 81 mg PO DAILY [facility] Last Admin: 03/15/17 09:30 Dose: 81 mg Clopidogrel Bisulfate (Plavix) 75 mg PO DAILY [facility] Last Admin: 03/15/17 09:31 Dose: 75 mg Dextrose (Dextrose 50% Inj) 0 ml IV STAT PRN; Protocol PRN Reason: Hypoglycemia Protocol Last Admin: 03/10/17 12:07 Dose: 50 ml Dextrose (Glutose 15) 0 gm PO ONCE PRN; Protocol PRN Reason: Hypoglycemia Protocol Last Admin: 03/10/17 05:24 Dose: 15 gm Divalproex Sodium (Depakote Dr) 750 mg PO BID [facility] Last Admin: 03/15/17 18:02 Dose: 750 mg Enoxaparin Sodium (Lovenox) 40 mg SC DAILY [facility] Last Admin: 03/15/17 09:30 Dose: 40 mg Glucagon (Glucagen Diagnostic Kit) 0 mg IM STAT PRN; Protocol PRN Reason: Hypoglycemia Protocol Haloperidol (Haldol) 5 mg PO Q1H PRN PRN Reason: agitation max 4x/24h Last Admin: 03/13/17 17:18 Dose: 5 mg Haloperidol Lactate (Haldol) 5 mg IM Q1H PRN PRN Reason: aggression max 4x/24h Last Admin: 02/26/17 20:13 Dose: 5 mg Hydrochlorothiazide (Hydrodiuril) 25 mg PO DAILY [facility] Last Admin: 03/15/17 09:30 Dose: 25 mg Dextrose (Dextrose 5% In Water 1000 Ml) 1,000 mls @ 0 mls/hr IV .Q0M PRN; Protocol; Per Protocol PRN Reason: Hypoglycemia Protocol Insulin Aspart (Novolog) 0 unit SC ACHS [facility] PRN Reason: Protocol Last Admin: 03/15/17 18:01 Dose: 10 unit Insulin Aspart (Novolog) 10 unit SC AC [facility] Insulin Glargine (Lantus) 20 unit SC HS [facility] Last Admin: 03/14/17 21:19 Dose: 20 u Lorazepam (Ativan) 1 mg PO Q4H PRN PRN Reason: severe agitation Last Admin: 03/13/17 17:18 Dose: 1 mg Metoprolol Succinate (Toprol Xl) 50 mg PO DAILY [facility] Last Admin: 03/15/17 09:30 Dose: 50 mg Rosuvastatin Calcium (Crestor) 10 mg PO HS [facility] Last Admin: 03/14/17 21:18 Dose: 10 mg - Labs Labs: 03/14/17 11:08 03/14/17 11:08 - Additional Findings Additional findings: - Constitutional Appears: No Acute Distress - Head Exam Head Exam: ATRAUMATIC, NORMOCEPHALIC - Eye Exam Eye Exam: EOMI, Normal appearance - ENT Exam ENT Exam: Mucous Membranes Moist - Respiratory Exam Respiratory Exam: Clear to Ausculation Bilateral. absent: Rales, Rhonchi, Wheezes - Cardiovascular Exam Cardiovascular Exam: REGULAR RHYTHM, +S1, +S2 - GI/Abdominal Exam GI & Abdominal Exam: Soft, Normal Bowel Sounds. absent: Distended, Tenderness - Extremities Exam Extremities Exam: absent: Pedal Edema, Tenderness - Neurological Exam Neurological Exam: Alert, Awake - Psychiatric Exam Psychiatric exam: Normal Affect, Normal Mood - Skin Skin Exam: Dry, Intact, Normal Color, Warm Assessment and Plan - Assessment and Plan (Free Text) Assessment: 56 year old male with PMHx bipolar, schizophrenia, dementia, CAD, CHF, diabetes , DKA, HTN, anemia who presents to the hospital brought in for psychotic behavior. Found to have uncontrolled diabetes. 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 Plan: 1. Schizophrenia and Bipolar disorder * Psychiatry consulted, Dr. Burdick, help appreciated * Psych was [place] [facility] [place] * Patient medically optimized for placement * [facility] [place] patient on 03/01/17 in the evening stating that his issue is a behavioral one not a psychiatric issue * Per Dr. Lindo, patient is stable for discharge from psychiatric perspective prior visit. However, Latest psych note (03/07/17): He is adherent to his meds but has minimal insight and is NOT able to take care of ADLs, meds, blood sugar , even basic needs without help/support or guidance. His psych condition is NO longer affecting him as negatively and he NO longer needs inpatient psych admission. However, he does NOT have the capacity to make medical decisions, as he does not grasp his conditions properly, nor is able to take care of self by himself. His is refusing to take him back fearing he will stop meds and relapse again, plus she is already taking care of their down syndrome son. Refer to shelter placement. This patient should not be allowed to sign AMA * Consulted Palliative Care for Goals of care. - Mrs. Alcala stated that they never discussed End of life care. She agreed to sign POLST if patient determined incompetent to make medical decisions * Medical Management per psych team * Continue Abilify 5mg PO BID, Depakote 750mg PO BID * Haldol 5mg [id number] agitation/ IM Q1H aggression * Ativan 1mg PO Q4H PRN severe agitatio 2. History of Uncontrolled Diabetes Mellitus, non-compliant * Stable, afebrile * HgA1C 02/2017 - 13.4 * Accuchecks today range from 136-414 * CXR shows no active disease but evidence of COPD * UA shows 1+ protein, 3+glucose and 6-10 hyaline casts * Blood cx no growth for 5 days, urine cx <10,000 CFU contamination * Procalcitonin, amylase, lipase were all unremarkable * Endocrine on consult, Dr Hernandez, help appreciated- * Novolog 8 units AC * ISS, accuchecks ACHS * Lantus 18 Units HS - Lantus decreased to 25 units HS to prevent AM hypoglycemic episodes * Continue Crestor 10mg PO daily * Will consider adding lisinopril for renal protection * Hypoglycemic protocol 3. Hyperkalemia (Resolved) * Potassium was 5.8 on admission, patient was given insulin * Will continue to monitor * Patient has been refusing blood work 4. Normacytic Anemia (Stable) * Chronic in nature, Hgb at baseline * No active bleeding at this time * Will continue to monitor 5. History of Coronary Artery Disease * Continue ASA and plavix daily * Continue Crestor 10mp PO HS 6. History of Hypertension * Continue Toprol XL 50mg PO daily * HCTZ 12.5mg PO daily increased to 25mg PO Daily * SBPs improved this evening, will continue to monitor 7. History of Hyperlipidemia * Increased Crestor to 10mg daily due to LDL given diabetic status * Lipid panel from 02/2017 * Triglycerides - 225 * Cholesterol - 209 * LDL - 101 * HDL - 56 Prophylactic measures * Lovenox 40mg SC daily Disposition: agreed to take patient home. senior insight manager international working on getting psychiatric services for home. Will DC once this is done. Patient discussed with Attending Cy Mcdonald - PGY1 <Raymond Wong - Last Filed: 03/15/17 19:45> Objective - Vital Signs/Intake and Output Vital Signs (last 24 hours): Temp Pulse Resp BP Pulse Ox 97.9 F 73 20 145/77 100 03/15/17 16:00 03/15/17 16:00 03/15/17 16:00 03/15/17 16:00 03/15/17 16:00 - Medications Medications: Current Medications Acetaminophen (Tylenol 325mg Tab) 650 mg PO Q6 PRN PRN Reason: pain. Last Admin: 03/08/17 19:54 Dose: 650 mg Aripiprazole (Abilify) 5 mg PO BID [facility] Last Admin: 03/15/17 18:01 Dose: 5 mg Aspirin (Ecotrin) 81 mg PO DAILY [facility] Last Admin: 03/15/17 09:30 Dose: 81 mg Clopidogrel Bisulfate (Plavix) 75 mg PO DAILY [facility] Last Admin: 03/15/17 09:31 Dose: 75 mg Dextrose (Dextrose 50% Inj) 0 ml IV STAT PRN; Protocol PRN Reason: Hypoglycemia Protocol Last Admin: 03/10/17 12:07 Dose: 50 ml Dextrose (Glutose 15) 0 gm PO ONCE PRN; Protocol PRN Reason: Hypoglycemia Protocol Last Admin: 03/10/17 05:24 Dose: 15 gm Divalproex Sodium (Depakote Dr) 750 mg PO BID [facility] Last Admin: 03/15/17 18:02 Dose: 750 mg Enoxaparin Sodium (Lovenox) 40 mg SC DAILY [facility] Last Admin: 03/15/17 09:30 Dose: 40 mg Glucagon (Glucagen Diagnostic Kit) 0 mg IM STAT PRN; Protocol PRN Reason: Hypoglycemia Protocol Haloperidol (Haldol) 5 mg PO Q1H PRN PRN Reason: agitation max 4x/24h Last Admin: 03/13/17 17:18 Dose: 5 mg Haloperidol Lactate (Haldol) 5 mg IM Q1H PRN PRN Reason: aggression max 4x/24h Last Admin: 02/26/17 20:13 Dose: 5 mg Hydrochlorothiazide (Hydrodiuril) 25 mg PO DAILY [facility] Last Admin: 03/15/17 09:30 Dose: 25 mg Dextrose (Dextrose 5% In Water 1000 Ml) 1,000 mls @ 0 mls/hr IV .Q0M PRN; Protocol; Per Protocol PRN Reason: Hypoglycemia Protocol Insulin Aspart (Novolog) 0 unit SC ACHS [facility] PRN Reason: Protocol Last Admin: 03/15/17 18:01 Dose: 10 unit Insulin Aspart (Novolog) 10 unit SC AC [facility] Last Admin: 03/15/17 17:30 Dose: 10 unit Insulin Glargine (Lantus) 20 unit SC HS [facility] Last Admin: 03/14/17 21:19 Dose: 20 u Lorazepam (Ativan) 1 mg PO Q4H PRN PRN Reason: severe agitation Last Admin: 03/13/17 17:18 Dose: 1 mg Metoprolol Succinate (Toprol Xl) 50 mg PO DAILY [facility] Last Admin: 03/15/17 09:30 Dose: 50 mg Rosuvastatin Calcium (Crestor) 10 mg PO HS [facility] Last Admin: 03/14/17 21:18 Dose: 10 mg - Labs Labs: 03/14/17 11:08 03/14/17 11:08 Attending/Attestation - Attestation I have personally seen and examined this patient.: Yes I have fully participated in the care of the patient.: Yes I have reviewed all pertinent clinical information, including history, physical exam and plan: Yes Notes (Text): 03/15/17 19:43 Hospitalist Progress Note Patient was seen and examined at 6:45 PM 03/15/17 359 A Exam, assessment and plan were thoroughly gone over with the resident Assessments: 1). Schizophrenia/Bipolar Disorder Abilify, Haldol PRN, Ativan PRN Psychiatry Dr. Magana/Guicho 2). DM 1 Aspart 10 units AC meals Lantus 20 units SC HS Hypoglycemic Protocol Aspart ISS ACHS 3). CAD/HF ASA, Plavix, Metoprolol, Crestor 4). HTN Metoprolol, Microzide 5). HLD Crestor 6). Anemia Chronic Disease Monitor Hgb/Hct 7). Hyperkalemia Resolved 8). Prophylaxis Lovenox Haldol 03/13/17: Spoke with Metal Mockup Maker Adam and patient's insurance has denied Chemical Process Operator Placement. Adam is in the process of appealing this decision as clearly this patient needs shelter placement considering that he can not take care of himself. 03/15/17: Spoke with Metal Mockup Maker Adam and she spoke with who has decided that she will take patient home. KENDRA Medina and Policyholder Information Clerk are trying to arrange for Home Visiting Psychiatry Nurse and once this is done, we will discharge patient. I spoke with Psychiatrist Dr. Lindo and from his perspective , patient may be discharged. Raymond Wong D.O.
--- NOTE | 2017-03-15 23:03 | PCM.PYCHPN ---
Psychiatric Progress Note - Psychiatric Progress Note Patient seen today, length of contact: 18 min Patient Chief Complaint: I am feeling better' Problems Identified/Issues Discussed: Patient seen and evaluated, chart reviewed and discussed with the nurse. Patient reports improvement in his mood and reports improvement in the anxiety symptoms. He denies any auditory or visual hallucinations. He remained calm and cooperative. He denies any feelings of hopelessness and helplessness. He is taking medication and denies any side effects. He needs more time for stabilization. Supportive therapy and psychoeducation were given. Medication Change: No Medical Record Reviewed: Yes Mental Status Examination - Cognitive Function Orientation: Person, Place, Situation, Time (year and month) Memory: Intact Attention: WNL Concentration: WNL Association: WNL Fund of Knowledge: WNL - Mood Mood: Neutral - Affect Affect: Constricted - Speech Speech: Appropriate, Soft - Formal Thought Process Formal Thought Process: No Impairment - Suicidal Ideation Suicidal Ideation: No - Homicidal Ideation Homicidal Ideation: No Goal/Treatment Plan - Goal/Treatment Plan Need for Continued Stay: Other Progress Toward Problem(s) and Goals/Treatment Plan: Depakote 750 mg PO BID Abilify 5 mg PO BID VPA level in AM Pt psychiatrically stable and clear for discharge. - Smoking Cessation Smoking Cessation Initiated: No
[2017-03-15] MEDS: (Lantus) Insulin Glargine, Recombinant SC SCH (23:06)
[2017-03-16 07:58] LABS: BASO # 0.1 K/uL (0.0-0.2); BASO % 0.8 % (0.0-2.0); EOS # 0.2 K/uL (0.0-0.7); EOS % 2.3 % (0.0-4.0); HEMOGLOBIN 9.5 g/dL (12.0-18.0); LYMPH # 3.4 K/uL (1.0-4.3); LYMPH % 42.2 % (20.0-40.0); MEAN CELL VOLUME 91.8 fL (80.0-94.0); MEAN CORPUSCULAR HEMOGLOBIN 31.6 pg (27.0-31.0); MEAN CORPUSCULAR HGB CONC 34.4 g/dL (33.0-37.0); MEAN PLATELET VOLUME 7.1 fL (7.2-11.7); MONO # 0.5 K/uL (0.0-0.8); MONO % 6.3 % (0.0-10.0); NEUT # 3.9 K/uL (1.8-7.0); NEUT % 48.4 % (50.0-75.0); NRBC % 0.1 % (0.0-2.0); RED CELL DISTRIBUTION WIDTH 13.8 % (11.5-14.5)
[2017-03-16] MEDS: (Novolog) Insulin Aspart, Recombinant 100 u/ml 10 ml vial SC SCH ×7 (08:16→21:57)
[2017-03-16 08:45] LABS: ALB/GLOB RATIO 1.4 (1.0-2.1); ALBUMIN 3.7 g/dL (3.5-5.0); ALT/SGPT 22 U/L (21-72); AST/SGOT 20 U/L (17-59); BLOOD UREA NITROGEN 31 mg/dL (9-20); CALCIUM 8.5 mg/dl (8.6-10.4); GFR AFRICAN-AMERICAN > 60; GFR NON-AFRICAN AMERICAN > 60
[2017-03-16] MEDS: Enoxaparin 40 mg Syringe SC SCH (09:51)
[2017-03-16] MEDS: Divalproex 250 mg DR Tab PO SCH ×2 (09:51→17:52)
[2017-03-16] MEDS: Metoprolol Succinate 50 mg XL Tab PO SCH (09:52)
--- NOTE | 2017-03-16 10:48 | PN ---
DATE: ENDOCRINOLOGY FOLLOWUP NOTE LOCATION: Room 359. SUBJECTIVE: This is a 56-year-old male with recent uncontrolled type 2 insulin-requiring diabetes who continues to have extremes of glycemic fluctuations and glucose levels overnight were extremely elevated at bedtime with glucose levels of 426 to 433 mg/dL. His engineering research manager glucose levels dropped to 39 and 43 mg/dL with latest glucose of 77 mg/dL. His latest chemistry showed BUN of 33, sodium 120, potassium 4.6, chloride 95, CO2 32, glucose 239 and creatinine 1.2. So at this time, we will increase his NovoLog to 10 units subcutaneous t.i.d. before meals to start at dinnertime today as ordered. We will also continue the same basal insulin given as Lantus at 20 units subcutaneous at bedtime daily as ordered. We will continue the low dose correction scale using NovoLog insulin as given. We will titrate incrementally as indicated to optimize metabolic control. We will obtain serial chemistries and supplement accordingly as needed. We will follow. Brook Hernandez MD
--- NOTE | 2017-03-16 20:49 | CP.PCM.PN ---
Subjective - Date & Time of Evaluation Date of Evaluation: 03/16/17 Time of Evaluation: 20:47 - Subjective Subjective: Patient seen and examined at bedside. Per nursing no acute events overnight. Patient is doing well, offers no complaints at this time. Denies headaches, dizziness, cp, palpitations, sob, abdominal pain, urinary symptoms, changes in bowel habits. Objective - Vital Signs/Intake and Output Vital Signs (last 24 hours): Temp Pulse Resp BP Pulse Ox 98.5 F 72 20 156/81 H 100 03/16/17 15:00 03/16/17 15:00 03/16/17 15:00 03/16/17 15:00 03/16/17 15:00 Intake and Output: 03/16/17 03/17/17 18:59 06:59 Intake Total 500 Balance 500 - Medications Medications: Current Medications Acetaminophen (Tylenol 325mg Tab) 650 mg PO Q6 PRN PRN Reason: pain. Last Admin: 03/08/17 19:54 Dose: 650 mg Aripiprazole (Abilify) 5 mg PO BID [facility] Last Admin: 03/16/17 17:52 Dose: 5 mg Aspirin (Ecotrin) 81 mg PO DAILY [facility] Last Admin: 03/16/17 09:52 Dose: 81 mg Clopidogrel Bisulfate (Plavix) 75 mg PO DAILY [facility] Last Admin: 03/16/17 09:52 Dose: 75 mg Dextrose (Dextrose 50% Inj) 0 ml IV STAT PRN; Protocol PRN Reason: Hypoglycemia Protocol Last Admin: 03/10/17 12:07 Dose: 50 ml Dextrose (Glutose 15) 0 gm PO ONCE PRN; Protocol PRN Reason: Hypoglycemia Protocol Last Admin: 03/10/17 05:24 Dose: 15 gm Divalproex Sodium (Depakote Dr) 750 mg PO BID [facility] Last Admin: 03/16/17 17:52 Dose: 750 mg Enoxaparin Sodium (Lovenox) 40 mg SC DAILY [facility] Last Admin: 03/16/17 09:51 Dose: 40 mg Glucagon (Glucagen Diagnostic Kit) 0 mg IM STAT PRN; Protocol PRN Reason: Hypoglycemia Protocol Haloperidol (Haldol) 5 mg PO Q1H PRN PRN Reason: agitation max 4x/24h Last Admin: 03/13/17 17:18 Dose: 5 mg Haloperidol Lactate (Haldol) 5 mg IM Q1H PRN PRN Reason: aggression max 4x/24h Last Admin: 02/26/17 20:13 Dose: 5 mg Hydrochlorothiazide (Hydrodiuril) 25 mg PO DAILY [facility] Last Admin: 03/16/17 09:52 Dose: 25 mg Dextrose (Dextrose 5% In Water 1000 Ml) 1,000 mls @ 0 mls/hr IV .Q0M PRN; Protocol; Per Protocol PRN Reason: Hypoglycemia Protocol Insulin Aspart (Novolog) 0 unit SC ACHS [facility] PRN Reason: Protocol Last Admin: 03/16/17 17:53 Dose: Not Given Insulin Aspart (Novolog) 10 unit SC AC [facility] Last Admin: 03/16/17 17:53 Dose: Not Given Insulin Glargine (Lantus) 20 unit SC HS [facility] Last Admin: 03/15/17 23:06 Dose: Not Given Lorazepam (Ativan) 1 mg PO Q4H PRN PRN Reason: severe agitation Last Admin: 03/13/17 17:18 Dose: 1 mg Metoprolol Succinate (Toprol Xl) 50 mg PO DAILY [facility] Last Admin: 03/16/17 09:52 Dose: 50 mg Rosuvastatin Calcium (Crestor) 10 mg PO [facility] Last Admin: 03/15/17 21:30 Dose: 10 mg - Labs Labs: 03/16/17 07:51 03/16/17 07:51 - Additional Findings Additional findings: - Constitutional Appears: No Acute Distress - Head Exam Head Exam: ATRAUMATIC, NORMOCEPHALIC - Eye Exam Eye Exam: EOMI, Normal appearance - ENT Exam ENT Exam: Mucous Membranes Moist - Respiratory Exam Respiratory Exam: Clear to Ausculation Bilateral. absent: Rales, Rhonchi, Wheezes - Cardiovascular Exam Cardiovascular Exam: REGULAR RHYTHM, +S1, +S2 - GI/Abdominal Exam GI & Abdominal Exam: Soft, Normal Bowel Sounds. absent: Distended, Tenderness - Extremities Exam Extremities Exam: absent: Pedal Edema, Tenderness - Neurological Exam Neurological Exam: Alert, Awake - Psychiatric Exam Psychiatric exam: Normal Affect, Normal Mood - Skin Skin Exam: Dry, Intact, Normal Color, Warm Assessment and Plan - Assessment and Plan (Free Text) Assessment: 56 year old male with PMHx bipolar, schizophrenia, dementia, CAD, CHF, diabetes , DKA, HTN, anemia who presents to the hospital brought in for psychotic behavior. Found to have uncontrolled diabetes. Currently awaiting mcc placement. Plan: 1. Schizophrenia and Bipolar disorder * Psychiatry consulted, Dr. Burdick, help appreciated * Psych was [place] [facility] [place] solicitor [place] * Patient medically optimized for placement * [facility] [place] 03/01/17 in the evening stating that his issue is a behavioral one not a psychiatric issue * Per Dr. Lindo, patient is stable for discharge from psychiatric perspective prior visit. However, Latest psych note (03/07/17): He is adherent to his meds but has minimal insight and is NOT able to take care of ADLs, meds, blood sugar , even basic needs without help/support or guidance. His psych condition is NO longer affecting him as negatively and he NO longer needs inpatient psych admission. However, he does NOT have the capacity to make medical decisions, as he does not grasp his conditions properly, nor is able to take care of self by himself. His is refusing to take him back fearing he will stop meds and relapse again, plus she is already taking care of their down syndrome son. Refer to mcc placement. This patient should not be allowed to sign AMA * Consulted Palliative Care for Goals of care. - Mrs. Alcala stated that they never discussed End of life care. She agreed to sign POLST if patient determined incompetent to make medical decisions * Medical Management per psych team * Continue Abilify 5mg PO BID, Depakote 750mg PO BID * Haldol 5mg [id number] agitation/ IM Q1H aggression * Ativan 1mg PO Q4H PRN severe agitatio 2. History of Uncontrolled Diabetes Mellitus, non-compliant * Stable, afebrile * HgA1C 02/2017 - 13.4 * Accuchecks today range from 136-414 * CXR shows no active disease but evidence of COPD * UA shows 1+ protein, 3+glucose and 6-10 hyaline casts * Blood cx no growth for 5 days, urine cx <10,000 CFU contamination * Procalcitonin, amylase, lipase were all unremarkable * Endocrine on consult, Dr Hernandez, help appreciated- * Novolog 8 units AC * ISS, accuchecks ACHS * Lantus 18 Units HS - Lantus decreased to 25 units HS to prevent AM hypoglycemic episodes * Continue Crestor 10mg PO daily * Will consider adding lisinopril for renal protection * Hypoglycemic protocol * Patient has been getting additional snacks, causing his labile blood sugars. 3. Hyperkalemia (Resolved) * Potassium was 5.8 on admission, patient was given insulin * Will continue to monitor * Patient has been refusing blood work 4. Normacytic Anemia (Stable) * Chronic in nature, Hgb at baseline * No active bleeding at this time * Will continue to monitor 5. History of Coronary Artery Disease * Continue ASA and plavix daily * Continue Crestor 10mp PO HS 6. History of Hypertension * Continue Toprol XL 50mg PO daily * HCTZ 12.5mg PO daily increased to 25mg PO Daily * SBPs improved this evening, will continue to monitor 7. History of Hyperlipidemia * Increased Crestor to 10mg daily due to LDL given diabetic status * Lipid panel from 02/2017 * Triglycerides - 225 * Cholesterol - 209 * LDL - 101 * HDL - 56 Prophylactic measures * Lovenox 40mg SC daily Disposition: agreed to take patient home. manager strategic working on getting psychiatric services for home. Will DC once this is done. Patient discussed with Attending Cy Mcdonald - PGY1
[2017-03-16] MEDS: (Lantus) Insulin Glargine, Recombinant SC SCH (21:58)
--- NOTE | 2017-03-17 06:26 | PN ---
DATE: ENDO FOLLOWUP NOTE LOCATION: Room 369. SUBJECTIVE: This is a 56-year-old male with recent uncontrolled type 2 insulin-requiring diabetes with extremes of glycemic fluctuations ranging from symptomatic hypoglycemia to catherine hyperglycemic accelerations as noted thereof. With variability of his oral intake and also suboptimal meal portions and sometimes supramaximal meal portions, this might unpredictable at this time to serve on his glycemic fluctuations especially with underlying autonomic neuropathy contributing to the aforementioned metabolic liability as noted thereof. His glucose levels all night have ranged from 96 mg/dL at bedtime with hyperglycemic accelerations as they apparently held the bedtime insulin as ordered. So, early this morning, the glucose was 221 to 401 mg/dL. The latest glucose at lunch time was 358 as noted. His latest chemistries showed a BUN of 31, sodium 129, potassium 5.2, chloride 95, CO2 of 29, glucose 431, and creatinine 1.2. So, at this time, we will really continue the same basal and bolus insulin regimen to allow for full dose equilibration and keeping on the Lantus given as 20 units subcu at bedtime daily as ordered. We will continue the NovoLog given as 10 units subcu t.i.d. before meals as ordered. We will titrate incrementally as indicated to optimize metabolic control. We will follow and advise accordingly. Brook Hernandez MD
[2017-03-17 07:37] LABS: BASO % 0.6 % (0.0-2.0); EOS # 0.2 K/uL (0.0-0.7); EOS % 2.3 % (0.0-4.0); HEMOGLOBIN 8.8 g/dL (12.0-18.0); LYMPH # 2.8 K/uL (1.0-4.3); LYMPH % 38.1 % (20.0-40.0); MEAN CELL VOLUME 91.2 fL (80.0-94.0); MEAN CORPUSCULAR HEMOGLOBIN 31.4 pg (27.0-31.0); MEAN CORPUSCULAR HGB CONC 34.5 g/dL (33.0-37.0); MEAN PLATELET VOLUME 7.5 fL (7.2-11.7); MONO # 0.5 K/uL (0.0-0.8); MONO % 6.6 % (0.0-10.0); NEUT # 3.9 K/uL (1.8-7.0); NEUT % 52.4 % (50.0-75.0); NRBC % 0.1 % (0.0-2.0); RBC 2.8 Mil/uL (4.40-5.90); RED CELL DISTRIBUTION WIDTH 13.9 % (11.5-14.5); WHITE BLOOD COUNT 7.4 K/uL (4.8-10.8)
[2017-03-17 07:40] LABS: ALB/GLOB RATIO 1.4 (1.0-2.1); ALBUMIN 3.4 g/dL (3.5-5.0); CALCIUM 8.7 mg/dl (8.6-10.4)
--- NOTE | 2017-03-17 07:51 | CP.PCM.PN ---
Subjective - Date & Time of Evaluation Date of Evaluation: 03/17/17 Time of Evaluation: 07:00 - Subjective Subjective: PGY1-Medicine Note- Dr. Wong's Service Patient seen and examined at bedside. Per nursing no acute events overnight. Patient is doing well and has no complaints. Denies headaches, dizziness, cp, palpitations, sob, abdominal pain, urinary symptoms, changes in bowel habits. Objective - Vital Signs/Intake and Output Vital Signs (last 24 hours): Temp Pulse Resp BP Pulse Ox 98.1 F 81 20 148/75 98 03/16/17 23:59 03/16/17 23:59 03/16/17 23:59 03/16/17 23:59 03/16/17 23:59 Intake and Output: 03/17/17 03/17/17 06:59 18:59 Intake Total 600 Balance 600 - Medications Medications: Current Medications Acetaminophen (Tylenol 325mg Tab) 650 mg PO Q6 PRN PRN Reason: pain. Last Admin: 03/08/17 19:54 Dose: 650 mg Aripiprazole (Abilify) 5 mg PO BID [facility] Last Admin: 03/16/17 17:52 Dose: 5 mg Aspirin (Ecotrin) 81 mg PO DAILY [facility] Last Admin: 03/16/17 09:52 Dose: 81 mg Clopidogrel Bisulfate (Plavix) 75 mg PO DAILY [facility] Last Admin: 03/16/17 09:52 Dose: 75 mg Dextrose (Dextrose 50% Inj) 0 ml IV STAT PRN; Protocol PRN Reason: Hypoglycemia Protocol Last Admin: 03/10/17 12:07 Dose: 50 ml Dextrose (Glutose 15) 0 gm PO ONCE PRN; Protocol PRN Reason: Hypoglycemia Protocol Last Admin: 03/10/17 05:24 Dose: 15 gm Divalproex Sodium (Depakote Dr) 750 mg PO BID [facility] Last Admin: 03/16/17 17:52 Dose: 750 mg Enoxaparin Sodium (Lovenox) 40 mg SC DAILY [facility] Last Admin: 03/16/17 09:51 Dose: 40 mg Glucagon (Glucagen Diagnostic Kit) 0 mg IM STAT PRN; Protocol PRN Reason: Hypoglycemia Protocol Haloperidol (Haldol) 5 mg PO Q1H PRN PRN Reason: agitation max 4x/24h Last Admin: 03/13/17 17:18 Dose: 5 mg Haloperidol Lactate (Haldol) 5 mg IM Q1H PRN PRN Reason: aggression max 4x/24h Last Admin: 02/26/17 20:13 Dose: 5 mg Hydrochlorothiazide (Hydrodiuril) 25 mg PO DAILY [facility] Last Admin: 03/16/17 09:52 Dose: 25 mg Dextrose (Dextrose 5% In Water 1000 Ml) 1,000 mls @ 0 mls/hr IV .Q0M PRN; Protocol; Per Protocol PRN Reason: Hypoglycemia Protocol Insulin Aspart (Novolog) 0 unit SC ACHS [facility] PRN Reason: Protocol Last Admin: 03/16/17 21:57 Dose: 3 unit Insulin Aspart (Novolog) 10 unit SC AC [facility] Last Admin: 03/16/17 17:53 Dose: Not Given Insulin Glargine (Lantus) 20 unit SC [facility] Last Admin: 03/16/17 21:58 Dose: 20 u Lorazepam (Ativan) 1 mg PO Q4H PRN PRN Reason: severe agitation Last Admin: 03/13/17 17:18 Dose: 1 mg Metoprolol Succinate (Toprol Xl) 50 mg PO DAILY [facility] Last Admin: 03/16/17 09:52 Dose: 50 mg Rosuvastatin Calcium (Crestor) 10 mg PO [facility] Last Admin: 03/16/17 21:59 Dose: 10 mg - Labs Labs: 03/17/17 06:55 03/17/17 06:55 - Additional Findings Additional findings: - Constitutional Appears: No Acute Distress - Head Exam Head Exam: ATRAUMATIC, NORMOCEPHALIC - Eye Exam Eye Exam: EOMI, Normal appearance - ENT Exam ENT Exam: Mucous Membranes Moist - Respiratory Exam Respiratory Exam: Clear to Ausculation Bilateral. absent: Rales, Rhonchi, Wheezes - Cardiovascular Exam Cardiovascular Exam: REGULAR RHYTHM, +S1, +S2 - GI/Abdominal Exam GI & Abdominal Exam: Soft, Normal Bowel Sounds. absent: Distended, Tenderness - Extremities Exam Extremities Exam: absent: Pedal Edema, Tenderness - Neurological Exam Neurological Exam: Alert, Awake - Psychiatric Exam Psychiatric exam: Normal Affect, Normal Mood - Skin Skin Exam: Dry, Intact, Normal Color, Warm Assessment and Plan - Assessment and Plan (Free Text) Assessment: 1. Schizophrenia and Bipolar disorder * Psychiatry consulted, Dr. Burdick, help appreciated * Psych was recommending [facility] evaluation for [facility] care * Patient medically optimized for placement * [facility] screening denied the patient on 03/01/17 in the evening stating that his issue is a behavioral one not a psychiatric issue * Per Dr. Lindo, patient is stable for discharge from psychiatric perspective prior visit. However, Latest psych note (03/07/17): He is adherent to his meds but has minimal insight and is NOT able to take care of ADLs, meds, blood sugar , even basic needs without help/support or guidance. His psych condition is NO longer affecting him as negatively and he NO longer needs inpatient psych admission. However, he does NOT have the capacity to make medical decisions, as he does not grasp his conditions properly, nor is able to take care of self by himself. His is refusing to take him back fearing he will stop meds and relapse again, plus she is already taking care of their down syndrome son. Refer to chcf placement. This patient should not be allowed to sign AMA * Consulted Palliative Care for Goals of care. - Mrs. Alcala stated that they never discussed End of life care. She agreed to sign POLST if patient determined incompetent to make medical decisions * Medical Management per psych team * Continue Abilify 5mg PO BID, Depakote 750mg PO BID * Haldol 5mg [id number] agitation/ IM Q1H aggression * Ativan 1mg PO Q4H PRN severe agitatio 2. History of Uncontrolled Diabetes Mellitus, non-compliant * Stable, afebrile * HgA1C 02/2017 - 13.4 * Accuchecks today range from 136-414 * CXR shows no active disease but evidence of COPD * UA shows 1+ protein, 3+glucose and 6-10 hyaline casts * Blood cx no growth for 5 days, urine cx <10,000 CFU contamination * Procalcitonin, amylase, lipase were all unremarkable * Endocrine on consult, Dr Hernandez, help appreciated- * Novolog 8 units AC * ISS, accuchecks ACHS * Lantus 24 Units HS * Continue Crestor 10mg PO daily * Will consider adding lisinopril for renal protection * Hypoglycemic protocol * Patient has been getting additional snacks, causing his labile blood sugars. 3. Hyperkalemia (Resolved) * Potassium was 5.8 on admission, patient was given insulin * Will continue to monitor * Patient has been refusing blood work 4. Normacytic Anemia (Stable) * Chronic in nature, Hgb at baseline * No active bleeding at this time * Will continue to monitor 5. History of Coronary Artery Disease * Continue ASA and plavix daily * Continue Crestor 10mg PO HS 6. History of Hypertension * Continue Toprol XL 50mg PO daily * HCTZ stopped on 03/17/17 due to uncontrolled blood sugars * Lisinopril 10mg po daily started on 03/17/17 * SBPs improved this evening, will continue to monitor 7. History of Hyperlipidemia * Increased Crestor to 10mg daily due to LDL given diabetic status * Lipid panel from 02/2017 * Triglycerides - 225 * Cholesterol - 209 * LDL - 101 * HDL - 56 Prophylactic measures * Lovenox 40mg SC daily Disposition: agreed to take patient home. 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 Pt to be discharged once this is done. Check labs on M and Patient discussed with Attending
[2017-03-17] MEDS: (Novolog) Insulin Aspart, Recombinant 100 u/ml 10 ml vial SC SCH ×7 (07:56→21:51)
[2017-03-17] MEDS: Enoxaparin 40 mg Syringe SC SCH (09:40)
[2017-03-17] MEDS: Metoprolol Succinate 50 mg XL Tab PO SCH (09:40)
[2017-03-17] MEDS: Divalproex 250 mg DR Tab PO SCH ×2 (09:40→17:43)
--- NOTE | 2017-03-17 14:22 | PN ---
DATE: ENDOCRINOLOGY FOLLOWUP NOTE LOCATION: Room 359. SUBJECTIVE: This is a 56-year-old male with recent uncontrolled type 2 insulin-requiring diabetes, who continues to have extremes of glycemic fluctuations despite a day to day insulin dose adjustment being undertaken thereof. His oral intake is also quite unpredictable and variable as noted thereof. His glucose levels today have ranged from 142 to 294 mg/dL. It was 384 to over 500 last night as noted. His latest chemistry shows a BUN of 39, sodium 133, potassium 4.9, chloride 94, CO2 of 30, glucose 173 and creatinine 1.5. So at this time, we will modify once again his basal and bolus insulin regimen and lower the NovoLog to 8 units subcu t.i.d. before meals to start at dinnertime today as ordered. We will also increase the basal insulin overnight to Lantus given as 24 units subcu at bedtime daily as ordered. We will titrate incrementally as indicated to optimize metabolic control. We will follow. Brook Hernandez MD
[2017-03-17] MEDS: (Lantus) Insulin Glargine, Recombinant SC SCH (21:50)
--- NOTE | 2017-03-18 05:51 | CP.PCM.PN ---
<Cy Mcdonald - Last Filed: 03/18/17 05:50> Subjective - Date & Time of Evaluation Date of Evaluation: 03/18/17 Time of Evaluation: 05:50 - Subjective Subjective: Patient seen and examined at bedside. Per nursing no acute events overnight. Patient is doing well and has no complaints. Denies headaches, dizziness, cp, palpitations, sob, abdominal pain, urinary symptoms, changes in bowel habits. Objective - Vital Signs/Intake and Output Vital Signs (last 24 hours): Temp Pulse Resp BP Pulse Ox 98.5 F 82 20 149/68 97 03/17/17 23:59 03/17/17 23:59 03/17/17 23:59 03/17/17 23:59 03/17/17 23:59 Intake and Output: 03/17/17 03/18/17 18:59 06:59 Intake Total 500 650 Balance 500 650 - Medications Medications: Current Medications Acetaminophen (Tylenol 325mg Tab) 650 mg PO Q6 PRN PRN Reason: pain. Last Admin: 03/08/17 19:54 Dose: 650 mg Aripiprazole (Abilify) 5 mg PO BID [facility] Last Admin: 03/17/17 18:21 Dose: 5 mg Aspirin (Ecotrin) 81 mg PO DAILY [facility] Last Admin: 03/17/17 09:40 Dose: 81 mg Clopidogrel Bisulfate (Plavix) 75 mg PO DAILY [facility] Last Admin: 03/17/17 09:40 Dose: 75 mg Dextrose (Dextrose 50% Inj) 0 ml IV STAT PRN; Protocol PRN Reason: Hypoglycemia Protocol Last Admin: 03/10/17 12:07 Dose: 50 ml Dextrose (Glutose 15) 0 gm PO ONCE PRN; Protocol PRN Reason: Hypoglycemia Protocol Last Admin: 03/10/17 05:24 Dose: 15 gm Divalproex Sodium (Depakote Dr) 750 mg PO BID [facility] Last Admin: 03/17/17 17:43 Dose: 750 mg Enoxaparin Sodium (Lovenox) 40 mg SC DAILY [facility] Last Admin: 03/17/17 09:40 Dose: 40 mg Glucagon (Glucagen Diagnostic Kit) 0 mg IM STAT PRN; Protocol PRN Reason: Hypoglycemia Protocol Haloperidol (Haldol) 5 mg PO Q1H PRN PRN Reason: agitation max 4x/24h Last Admin: 03/13/17 17:18 Dose: 5 mg Haloperidol Lactate (Haldol) 5 mg IM Q1H PRN PRN Reason: aggression max 4x/24h Last Admin: 02/26/17 20:13 Dose: 5 mg Dextrose (Dextrose 5% In Water 1000 Ml) 1,000 mls @ 0 mls/hr IV .Q0M PRN; Protocol; Per Protocol PRN Reason: Hypoglycemia Protocol Insulin Aspart (Novolog) 0 unit SC ACHS [facility] PRN Reason: Protocol Last Admin: 03/17/17 21:51 Dose: Not Given Insulin Aspart (Novolog) 8 unit SC AC [facility] Last Admin: 03/17/17 17:47 Dose: 8 unit Insulin Glargine (Lantus) 24 unit SC HS [facility] Last Admin: 03/17/17 21:50 Dose: 24 u Lisinopril (Zestril) 10 mg PO DAILY [facility] Lorazepam (Ativan) 1 mg PO Q4H PRN PRN Reason: severe agitation Last Admin: 03/13/17 17:18 Dose: 1 mg Metoprolol Succinate (Toprol Xl) 50 mg PO DAILY [facility] Last Admin: 03/17/17 09:40 Dose: 50 mg Rosuvastatin Calcium (Crestor) 10 mg PO HS [facility] Last Admin: 03/17/17 21:52 Dose: 10 mg - Labs Labs: 03/17/17 06:55 03/17/17 06:55 - Additional Findings Additional findings: - Constitutional Appears: No Acute Distress - Head Exam Head Exam: ATRAUMATIC, NORMOCEPHALIC - Eye Exam Eye Exam: EOMI, Normal appearance - ENT Exam ENT Exam: Mucous Membranes Moist - Respiratory Exam Respiratory Exam: Clear to Ausculation Bilateral. absent: Rales, Rhonchi, Wheezes - Cardiovascular Exam Cardiovascular Exam: REGULAR RHYTHM, +S1, +S2 - GI/Abdominal Exam GI & Abdominal Exam: Soft, Normal Bowel Sounds. absent: Distended, Tenderness - Extremities Exam Extremities Exam: absent: Pedal Edema, Tenderness - Neurological Exam Neurological Exam: Alert, Awake - Psychiatric Exam Psychiatric exam: Normal Affect, Normal Mood - Skin Skin Exam: Dry, Intact, Normal Color, Warm Assessment and Plan - Assessment and Plan (Free Text) Assessment: 1. Schizophrenia and Bipolar disorder * Psychiatry consulted, Dr. 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 Lindo, patient is stable for discharge from psychiatric perspective prior visit. However, Latest psych note (03/07/17): He is adherent to his meds but has minimal insight and is NOT able to take care of ADLs, meds, blood sugar , even basic needs without help/support or guidance. His psych condition is NO longer affecting him as negatively and he NO longer needs inpatient psych admission. However, he does NOT have the capacity to make medical decisions, as he does not grasp his conditions properly, nor is able to take care of self by himself. His is refusing to take him back fearing he will stop meds and relapse again, plus she is already taking care of their down syndrome son. Refer to shelter placement. This patient should not be allowed to sign AMA * Consulted Palliative Care for Goals of care. - Mrs. Alcala stated that they never discussed End of life care. She agreed to sign POLST if patient determined incompetent to make medical decisions * Medical Management per psych team * Continue Abilify 5mg PO BID, Depakote 750mg PO BID * Haldol 5mg [id number] agitation/ IM Q1H aggression * Ativan 1mg PO Q4H PRN severe agitatio 2. History of Uncontrolled Diabetes Mellitus, non-compliant * Stable, afebrile * HgA1C 02/2017 - 13.4 * Accuchecks today range from 136-414 * CXR shows no active disease but evidence of COPD * UA shows 1+ protein, 3+glucose and 6-10 hyaline casts * Blood cx no growth for 5 days, urine cx <10,000 CFU contamination * Procalcitonin, amylase, lipase were all unremarkable * Endocrine on consult, Dr Hernandez, help appreciated- * Novolog 8 units AC * ISS, accuchecks ACHS * Lantus 24 Units HS * Continue Crestor 10mg PO daily * Will consider adding lisinopril for renal protection * Hypoglycemic protocol * Patient has been getting additional snacks, causing his labile blood sugars. 3. Hyperkalemia (Resolved) * Potassium was 5.8 on admission, patient was given insulin * Will continue to monitor * Patient has been refusing blood work 4. Normacytic Anemia (Stable) * Chronic in nature, Hgb at baseline * No active bleeding at this time * Will continue to monitor 5. History of Coronary Artery Disease * Continue ASA and plavix daily * Continue Crestor 10mg PO HS 6. History of Hypertension * Continue Toprol XL 50mg PO daily * HCTZ stopped on 03/17/17 due to uncontrolled blood sugars * Lisinopril 10mg po daily started on 03/17/17 * SBPs improved this evening, will continue to monitor 7. History of Hyperlipidemia * Increased Crestor to 10mg daily due to LDL given diabetic status * Lipid panel from 02/2017 * Triglycerides - 225 * Cholesterol - 209 * LDL - 101 * HDL - 56 Prophylactic measures * Lovenox 40mg SC daily Disposition: agreed to take patient home. 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 Pt to be discharged once this is done. Check labs on and Patient discussed with Attending <Raymond Wong - Last Filed: 03/18/17 17:56> Objective - Vital Signs/Intake and Output Vital Signs (last 24 hours): Temp Pulse Resp BP Pulse Ox 98.5 F 80 20 122/61 98 03/18/17 15:00 03/18/17 15:00 03/18/17 15:00 03/18/17 15:00 03/18/17 15:00 Intake and Output: 03/18/17 03/18/17 06:59 18:59 Intake Total 650 Output Total 0 Balance 650 0 - Medications Medications: Current Medications Acetaminophen (Tylenol 325mg Tab) 650 mg PO Q6 PRN PRN Reason: pain. Last Admin: 03/08/17 19:54 Dose: 650 mg Aripiprazole (Abilify) 5 mg PO BID [facility] Last Admin: 03/18/17 10:16 Dose: 5 mg Aspirin (Ecotrin) 81 mg PO DAILY [facility] Last Admin: 03/18/17 10:12 Dose: 81 mg Clopidogrel Bisulfate (Plavix) 75 mg PO DAILY [facility] Last Admin: 03/18/17 10:11 Dose: 75 mg Dextrose (Dextrose 50% Inj) 0 ml IV STAT PRN; Protocol PRN Reason: Hypoglycemia Protocol Last Admin: 03/10/17 12:07 Dose: 50 ml Dextrose (Glutose 15) 0 gm PO ONCE PRN; Protocol PRN Reason: Hypoglycemia Protocol Last Admin: 03/10/17 05:24 Dose: 15 gm Divalproex Sodium (Depakote Dr) 750 mg PO BID [facility] Last Admin: 03/18/17 10:14 Dose: 750 mg Enoxaparin Sodium (Lovenox) 40 mg SC DAILY [facility] Last Admin: 03/18/17 10:12 Dose: 40 mg Glucagon (Glucagen Diagnostic Kit) 0 mg IM STAT PRN; Protocol PRN Reason: Hypoglycemia Protocol Haloperidol (Haldol) 5 mg PO Q1H PRN PRN Reason: agitation max 4x/24h Last Admin: 03/13/17 17:18 Dose: 5 mg Haloperidol Lactate (Haldol) 5 mg IM Q1H PRN PRN Reason: aggression max 4x/24h Last Admin: 02/26/17 20:13 Dose: 5 mg Dextrose (Dextrose 5% In Water 1000 Ml) 1,000 mls @ 0 mls/hr IV .Q0M PRN; Protocol; Per Protocol PRN Reason: Hypoglycemia Protocol Insulin Aspart (Novolog) 0 unit SC [facility] PRN Reason: Protocol Last Admin: 03/18/17 17:27 Dose: Not Given Insulin Aspart (Novolog) 8 unit SC AC [facility] Last Admin: 03/18/17 17:27 Dose: 8 unit Insulin Glargine (Lantus) 24 unit SC [facility] Last Admin: 03/17/17 21:50 Dose: 24 u Lisinopril (Zestril) 10 mg PO DAILY [facility] Last Admin: 03/18/17 10:12 Dose: 10 mg Lorazepam (Ativan) 1 mg PO Q4H PRN PRN Reason: severe agitation Last Admin: 03/13/17 17:18 Dose: 1 mg Metoprolol Succinate (Toprol Xl) 50 mg PO DAILY [facility] Last Admin: 03/18/17 10:12 Dose: 50 mg Rosuvastatin Calcium (Crestor) 10 mg PO HS [facility] Last Admin: 03/17/17 21:52 Dose: 10 mg - Labs Labs: 03/17/17 06:55 03/17/17 06:55 Attending/Attestation - Attestation I have personally seen and examined this patient.: Yes I have fully participated in the care of the patient.: Yes I have reviewed all pertinent clinical information, including history, physical exam and plan: Yes Notes (Text): 03/18/17 17:54 Hospitalist Progress Note Patient was seen and examined at 12:30 AM 03/18/17 359 A Exam, assessment and plan were thoroughly gone over with the resident Assessments: 1). Schizophrenia/Bipolar Disorder Humphrey Underwoodl PRN, Ativan PRN Psychiatry Dr. Magana/Guicho 2). DM 1 Aspart 10 units AC meals Lantus 20 units SC HS Hypoglycemic Protocol Aspart ISS ACHS 3). CAD/HF ASA, Plavix, Metoprolol, Crestor 4). HTN Metoprolol, Microzide 5). HLD Crestor 6). Anemia Chronic Disease Monitor Hgb/Hct 7). Hyperkalemia Resolved 8). Prophylaxis Lovenox Haldol 03/13/17: Spoke with Motor Block Mechanic Andrea and patient's insurance has denied [facility] Placement. Adam is in the process of appealing this decision as clearly this patient needs shelter placement considering that he can not take care of himself. 03/15/17: Spoke with Motor Block Mechanic Andrea and she spoke with who has decided that she will take patient home. KEDNRA Medina and Regional Office Coordinator are trying to arrange for Home Visiting Psychiatry Nurse and once this is done, we will discharge patient. I spoke with Psychiatrist Dr. Lindo and from his perspective , patient may be discharged. 03/17/17: Motor Block Mechanic Andrea is working towards setting up Adult Medicine Day Care at [facility] and once this is set up patient will be discharged to home. Home Visitin Psychiatry Nurse could not be arranged. Raymond Wong D.O.
[2017-03-18] MEDS: (Novolog) Insulin Aspart, Recombinant 100 u/ml 10 ml vial SC SCH ×7 (07:50→22:00)
[2017-03-18] MEDS: Enoxaparin 40 mg Syringe SC SCH (10:12)
[2017-03-18] MEDS: Metoprolol Succinate 50 mg XL Tab PO SCH (10:12)
[2017-03-18] MEDS: Divalproex 250 mg DR Tab PO SCH ×3 (10:14→18:14)
--- NOTE | 2017-03-18 12:58 | PN ---
DATE: ENDOCRINOLOGY FOLLOWUP NOTE LOCATION: Room 359. SUBJECTIVE: This is a 56-year-old male with recent uncontrolled type 2 insulin-requiring diabetes, who continues to have extremes of glycemic fluctuations related to the variability of his oral intake with underlying severe autonomic polyneuropathy as noted. His latest chemistry shows a BUN of 39, sodium 133, potassium 4.9, chloride 94, CO2 of 30, glucose 173 and creatinine 1.5. So, at this time we will continue the same basal and bolus insulin regimen to allow for dose equilibration and keeping on the Lantus given as 24 units subcu at bedtime daily as ordered. We will continue the NovoLog given as 8 units subcu t.i.d. before meals as ordered. We will titrate incrementally as indicated to optimize metabolic control. We will follow and advise accordingly. Brook Hernandez MD
[2017-03-18] MEDS: (Lantus) Insulin Glargine, Recombinant SC SCH (21:44)
--- NOTE | 2017-03-19 01:52 | CP.PCM.PN ---
<[email or web address] - Last Filed: 03/19/17 01:49> Subjective - Date & Time of Evaluation Date of Evaluation: 03/19/17 Time of Evaluation: 01:49 - Subjective Subjective: Patient seen and examined at bedside. Per nursing no acute events overnight. Patient is doing well and has no complaints. Denies headaches, dizziness, cp, palpitations, sob, abdominal pain, urinary symptoms, changes in bowel habits. Was called about blood sugar in the 70's. Did not hold/adjust Lantus dose as per Night Attending. Objective - Vital Signs/Intake and Output Vital Signs (last 24 hours): Temp Pulse Resp BP Pulse Ox 98.0 F 74 20 126/74 99 03/18/17 23:05 03/18/17 23:05 03/18/17 23:05 03/18/17 23:05 03/18/17 23:05 Intake and Output: 03/18/17 03/19/17 18:59 06:59 Intake Total 500 Output Total 0 Balance 0 500 - Medications Medications: Current Medications Acetaminophen (Tylenol 325mg Tab) 650 mg PO Q6 PRN PRN Reason: pain. Last Admin: 03/18/17 18:12 Dose: 650 mg Aripiprazole (Abilify) 5 mg PO BID [facility] Last Admin: 03/18/17 18:14 Dose: 5 mg Aspirin (Ecotrin) 81 mg PO DAILY [facility] Last Admin: 03/18/17 10:12 Dose: 81 mg Clopidogrel Bisulfate (Plavix) 75 mg PO DAILY [facility] Last Admin: 03/18/17 10:11 Dose: 75 mg Dextrose (Dextrose 50% Inj) 0 ml IV STAT PRN; Protocol PRN Reason: Hypoglycemia Protocol Last Admin: 03/10/17 12:07 Dose: 50 ml Dextrose (Glutose 15) 0 gm PO ONCE PRN; Protocol PRN Reason: Hypoglycemia Protocol Last Admin: 03/10/17 05:24 Dose: 15 gm Divalproex Sodium (Depakote Dr) 750 mg PO BID [facility] Last Admin: 03/18/17 18:14 Dose: 750 mg Enoxaparin Sodium (Lovenox) 40 mg SC DAILY [facility] Last Admin: 03/18/17 10:12 Dose: 40 mg Glucagon (Glucagen Diagnostic Kit) 0 mg IM STAT PRN; Protocol PRN Reason: Hypoglycemia Protocol Haloperidol (Haldol) 5 mg PO Q1H PRN PRN Reason: agitation max 4x/24h Last Admin: 03/13/17 17:18 Dose: 5 mg Haloperidol Lactate (Haldol) 5 mg IM Q1H PRN PRN Reason: aggression max 4x/24h Last Admin: 02/26/17 20:13 Dose: 5 mg Dextrose (Dextrose 5% In Water 1000 Ml) 1,000 mls @ 0 mls/hr IV .Q0M PRN; Protocol; Per Protocol PRN Reason: Hypoglycemia Protocol Insulin Aspart (Novolog) 0 unit SC [facility] PRN Reason: Protocol Last Admin: 03/18/17 17:27 Dose: Not Given Insulin Aspart (Novolog) 8 unit SC AC [facility] Last Admin: 03/18/17 17:27 Dose: 8 unit Insulin Glargine (Lantus) 24 unit SC [facility] Last Admin: 03/18/17 21:44 Dose: 24 u Lisinopril (Zestril) 10 mg PO DAILY [facility] Last Admin: 03/18/17 10:12 Dose: 10 mg Lorazepam (Ativan) 1 mg PO Q4H PRN PRN Reason: severe agitation Last Admin: 03/13/17 17:18 Dose: 1 mg Metoprolol Succinate (Toprol Xl) 50 mg PO DAILY [facility] Last Admin: 03/18/17 10:12 Dose: 50 mg Rosuvastatin Calcium (Crestor) 10 mg PO [facility] Last Admin: 03/18/17 21:33 Dose: 10 mg - Labs Labs: 03/17/17 06:55 03/17/17 06:55 - Additional Findings Additional findings: - Constitutional Appears: No Acute Distress - Head Exam Head Exam: ATRAUMATIC, NORMOCEPHALIC - Eye Exam Eye Exam: EOMI, Normal appearance - ENT Exam ENT Exam: Mucous Membranes Moist - Respiratory Exam Respiratory Exam: Clear to Ausculation Bilateral. absent: Rales, Rhonchi, Wheezes - Cardiovascular Exam Cardiovascular Exam: REGULAR RHYTHM, +S1, +S2 - GI/Abdominal Exam GI & Abdominal Exam: Soft, Normal Bowel Sounds. absent: Distended, Tenderness - Extremities Exam Extremities Exam: absent: Pedal Edema, Tenderness - Neurological Exam Neurological Exam: Alert, Awake - Psychiatric Exam Psychiatric exam: Normal Affect, Normal Mood - Skin Skin Exam: Dry, Intact, Normal Color, Warm Assessment and Plan - Assessment and Plan (Free Text) Assessment: 1. Schizophrenia and Bipolar disorder * Psychiatry consulted, Dr. Burdick, help appreciated * Psych was recommending [facility] evaluation for chcf care * Patient medically optimized for placement * [facility] screening denied the patient on 03/01/17 in the evening stating that his issue is a behavioral one not a psychiatric issue * Per Dr. Lindo, patient is stable for discharge from psychiatric perspective prior visit. However, Latest psych note (03/07/17): He is adherent to his meds but has minimal insight and is NOT able to take care of ADLs, meds, blood sugar , even basic needs without help/support or guidance. His psych condition is NO longer affecting him as negatively and he NO longer needs inpatient psych admission. However, he does NOT have the capacity to make medical decisions, as he does not grasp his conditions properly, nor is able to take care of self by himself. His is refusing to take him back fearing he will stop meds and relapse again, plus she is already taking care of their down syndrome son. Refer to terminal make up operator placement. This patient should not be allowed to sign AMA * Consulted Palliative Care for Goals of care. - Mrs. Alcala stated that they never discussed End of life care. She agreed to sign POLST if patient determined incompetent to make medical decisions * Medical Management per psych team * Continue Abilify 5mg PO BID, Depakote 750mg PO BID * Haldol 5mg [id number] agitation/ IM Q1H aggression * Ativan 1mg PO Q4H PRN severe agitatio 2. History of Uncontrolled Diabetes Mellitus, non-compliant * Stable, afebrile * HgA1C 02/2017 - 13.4 * Accuchecks today range from 136-414 * CXR shows no active disease but evidence of COPD * UA shows 1+ protein, 3+glucose and 6-10 hyaline casts * Blood cx no growth for 5 days, urine cx <10,000 CFU contamination * Procalcitonin, amylase, lipase were all unremarkable * Endocrine on consult, Dr Hernandez, help appreciated- * Novolog 8 units AC * ISS, accuchecks ACHS * Lantus 24 Units HS * Continue Crestor 10mg PO daily * Will consider adding lisinopril for renal protection * Hypoglycemic protocol * Patient has been getting additional snacks, causing his labile blood sugars. 3. Hyperkalemia (Resolved) * Potassium was 5.8 on admission, patient was given insulin * Will continue to monitor * Patient has been refusing blood work 4. Normacytic Anemia (Stable) * Chronic in nature, Hgb at baseline * No active bleeding at this time * Will continue to monitor 5. History of Coronary Artery Disease * Continue ASA and plavix daily * Continue Crestor 10mg PO HS 6. History of Hypertension * Continue Toprol XL 50mg PO daily * HCTZ stopped on 03/17/17 due to uncontrolled blood sugars * Lisinopril 10mg po daily started on 03/17/17 * SBPs improved this evening, will continue to monitor 7. History of Hyperlipidemia * Increased Crestor to 10mg daily due to LDL given diabetic status * Lipid panel from 02/2017 * Triglycerides - 225 * Cholesterol - 209 * LDL - 101 * HDL - 56 Prophylactic measures * Lovenox 40mg SC daily Disposition: agreed to take patient home. car wash manager working on getting psychiatric services for home. Pt to be discharged once this is done. Check labs on and <Raymond Wong - Last Filed: 03/19/17 20:59> Objective - Vital Signs/Intake and Output Vital Signs (last 24 hours): Temp Pulse Resp BP Pulse Ox 98.5 F 93 H 20 157/66 H 98 03/19/17 15:23 03/19/17 15:23 03/19/17 15:23 03/19/17 15:23 03/19/17 15:23 Intake and Output: 03/19/17 03/20/17 18:59 06:59 Intake Total 600 Balance 600 - Medications Medications: Current Medications Acetaminophen (Tylenol 325mg Tab) 650 mg PO Q6 PRN PRN Reason: pain. Last Admin: 03/18/17 18:12 Dose: 650 mg Aripiprazole (Abilify) 5 mg PO BID [facility] Last Admin: 03/19/17 17:49 Dose: 5 mg Aspirin (Ecotrin) 81 mg PO DAILY [facility] Last Admin: 03/19/17 10:07 Dose: 81 mg Clopidogrel Bisulfate (Plavix) 75 mg PO DAILY [facility] Last Admin: 03/19/17 10:07 Dose: 75 mg Dextrose (Dextrose 50% Inj) 0 ml IV STAT PRN; Protocol PRN Reason: Hypoglycemia Protocol Last Admin: 03/10/17 12:07 Dose: 50 ml Dextrose (Glutose 15) 0 gm PO ONCE PRN; Protocol PRN Reason: Hypoglycemia Protocol Last Admin: 03/10/17 05:24 Dose: 15 gm Divalproex Sodium (Depakote Dr) 750 mg PO BID [facility] Last Admin: 03/19/17 17:49 Dose: 750 mg Enoxaparin Sodium (Lovenox) 40 mg SC DAILY [facility] Last Admin: 03/19/17 10:10 Dose: 40 mg Glucagon (Glucagen Diagnostic Kit) 0 mg IM STAT PRN; Protocol PRN Reason: Hypoglycemia Protocol Haloperidol (Haldol) 5 mg PO Q1H PRN PRN Reason: agitation max 4x/24h Last Admin: 03/13/17 17:18 Dose: 5 mg Haloperidol Lactate (Haldol) 5 mg IM Q1H PRN PRN Reason: aggression max 4x/24h Last Admin: 02/26/17 20:13 Dose: 5 mg Dextrose (Dextrose 5% In Water 1000 Ml) 1,000 mls @ 0 mls/hr IV .Q0M PRN; Protocol; Per Protocol PRN Reason: Hypoglycemia Protocol Insulin Aspart (Novolog) 0 unit SC [facility] PRN Reason: Protocol Last Admin: 03/19/17 17:53 Dose: 2 unit Insulin Aspart (Novolog) 8 unit SC AC [facility] Last Admin: 03/19/17 17:52 Dose: 8 unit Insulin Glargine (Lantus) 24 unit SC HS [facility] Last Admin: 03/18/17 21:44 Dose: 24 u Lisinopril (Zestril) 10 mg PO DAILY [facility] Last Admin: 03/19/17 10:07 Dose: 10 mg Lorazepam (Ativan) 1 mg PO Q4H PRN PRN Reason: severe agitation Last Admin: 03/13/17 17:18 Dose: 1 mg Metoprolol Succinate (Toprol Xl) 50 mg PO DAILY [facility] Last Admin: 03/19/17 10:07 Dose: 50 mg Rosuvastatin Calcium (Crestor) 10 mg PO HS [facility] Last Admin: 03/18/17 21:33 Dose: 10 mg - Labs Labs: 03/17/17 06:55 03/17/17 06:55 Attending/Attestation - Attestation I have personally seen and examined this patient.: Yes I have fully participated in the care of the patient.: Yes I have reviewed all pertinent clinical information, including history, physical exam and plan: Yes Notes (Text): 03/19/17 20:56 Hospitalist Progress Note Patient was seen and examined at 4:00 PM 03/19/17 359 A Exam, assessment and plan were thoroughly gone over with the resident Assessments: 1). Schizophrenia/Bipolar Disorder Abilify, Haldol PRN, Ativan PRN Psychiatry Dr. Magana/Guicho 2). DM 1 Aspart 10 units AC meals Lantus 20 units SC HS Hypoglycemic Protocol Aspart ISS ACHS 3). CAD/HF ASA, Plavix, Metoprolol, Crestor 4). HTN Metoprolol, Microzide 5). HLD Crestor 6). Anemia Chronic Disease Monitor Hgb/Hct 7). Hyperkalemia Resolved 8). Prophylaxis Lovenox Haldol 03/13/17: Spoke with Marine Biologist Adam and patient's insurance has denied [facility]. Adam is in the process of appealing this decision as clearly this patient needs chcf placement considering that he can not take care of himself. 03/15/17: Spoke with Marine Biologist Adam and she spoke with who has decided that she will take patient home. KENDRA Medina and Hris Administrator are trying to arrange for Home Visiting Psychiatry Nurse and once this is done, we will discharge patient. I spoke with Psychiatrist Dr. Lindo and from his perspective , patient may be discharged. 03/17/17: Marine Biologist Andrea is working towards setting up Adult Medicine Day Care at [facility] and once this is set up patient will be discharged to home. Home Visitin Psychiatry Nurse could not be arranged. 03/19/17: Patient's Amanda [phone] at bedside and with the help of Nurse Stefanie (who translated in English), explained plan. Also noted that she was bringing sugary snacks from home for patient (sugar wafers) which patient was eating at the time of exam. Explained at length that this is what was causing fluctuations in his blood glucose. Dietary Consult for Diabetic Diet placed to provide patient's Amanda with education concerning this issue. Raymond Wong D.O.
[2017-03-19] MEDS: (Novolog) Insulin Aspart, Recombinant 100 u/ml 10 ml vial SC SCH ×6 (07:55→17:53)
[2017-03-19] MEDS: Divalproex 250 mg DR Tab PO SCH ×2 (10:07→17:49)
[2017-03-19] MEDS: Metoprolol Succinate 50 mg XL Tab PO SCH (10:07)
[2017-03-19] MEDS: Enoxaparin 40 mg Syringe SC SCH (10:10)
--- NOTE | 2017-03-19 21:02 | PN ---
DATE: ENDOCRINOLOGY FOLLOWUP NOTE LOCATION: Room 359. SUBJECTIVE: This is a 56-year-old male with recent uncontrolled type 2 insulin-requiring diabetes, now being followed closely for metabolic management. His glycemic levels are fluctuating, but improved as the glucose values have ranged from 91 to 121 and 251 mg/dL. It was 76 at bedtime last night. The latest chemistries have not been done at this time and the only available ones shows a BUN of 31, sodium 131, potassium 4.5, chloride 96, CO2 of 29, glucose 206 and creatinine 1.2. So at this time, we will continue the modified basal and bolus insulin regimen with Lantus given as 24 units subcu at bedtime daily as given. We will continue the NovoLog given as 8 units subcu t.i.d. before meals as ordered. We will titrate incrementally as indicated to optimize metabolic control. We will follow. Brook Hernandez MD
[2017-03-19] MEDS: (Lantus) Insulin Glargine, Recombinant SC SCH (21:43)
[2017-03-20 06:37] LABS: BASO % 0.7 % (0.0-2.0); EOS # 0.2 K/uL (0.0-0.7); HEMOGLOBIN 8.4 g/dL (12.0-18.0); LYMPH # 2.9 K/uL (1.0-4.3); LYMPH % 43.3 % (20.0-40.0); MEAN CELL VOLUME 90.9 fL (80.0-94.0); MEAN CORPUSCULAR HEMOGLOBIN 31.4 pg (27.0-31.0); MEAN CORPUSCULAR HGB CONC 34.6 g/dL (33.0-37.0); MEAN PLATELET VOLUME 7.2 fL (7.2-11.7); MONO # 0.6 K/uL (0.0-0.8); MONO % 8.2 % (0.0-10.0); NEUT # 3.1 K/uL (1.8-7.0); NEUT % 44.8 % (50.0-75.0); RBC 2.69 Mil/uL (4.40-5.90); WHITE BLOOD COUNT 6.8 K/uL (4.8-10.8)
[2017-03-20 06:53] LABS: ALB/GLOB RATIO 1.3 (1.0-2.1); ALBUMIN 3.1 g/dL (3.5-5.0); CALCIUM 8.1 mg/dl (8.6-10.4)
[2017-03-20] MEDS: (Novolog) Insulin Aspart, Recombinant 100 u/ml 10 ml vial SC SCH ×7 (07:41→21:37)
[2017-03-20] MEDS: Divalproex 250 mg DR Tab PO SCH ×2 (09:53→17:20)
[2017-03-20] MEDS: Enoxaparin 40 mg Syringe SC SCH (09:54)
[2017-03-20] MEDS: Metoprolol Succinate 50 mg XL Tab PO SCH (09:57)
--- NOTE | 2017-03-20 12:17 | CP.PCM.PN ---
<MianLashell V - Last Filed: 03/20/17 13:51> Objective - Vital Signs/Intake and Output Vital Signs (last 24 hours): Temp Pulse Resp BP Pulse Ox 98.4 F 72 20 142/72 100 03/20/17 07:30 03/20/17 07:30 03/20/17 07:30 03/20/17 07:30 03/20/17 07:30 Intake and Output: 03/20/17 03/20/17 06:59 18:59 Intake Total 500 Balance 500 - Medications Medications: Current Medications Acetaminophen (Tylenol 325mg Tab) 650 mg PO Q6 PRN PRN Reason: pain. Last Admin: 03/18/17 18:12 Dose: 650 mg Aripiprazole (Abilify) 5 mg PO BID [facility] Last Admin: 03/20/17 09:54 Dose: 5 mg Aspirin (Ecotrin) 81 mg PO DAILY [facility] Last Admin: 03/20/17 09:54 Dose: 81 mg Clopidogrel Bisulfate (Plavix) 75 mg PO DAILY [facility] Last Admin: 03/20/17 09:54 Dose: 75 mg Dextrose (Dextrose 50% Inj) 0 ml IV STAT PRN; Protocol PRN Reason: Hypoglycemia Protocol Last Admin: 03/10/17 12:07 Dose: 50 ml Dextrose (Glutose 15) 0 gm PO ONCE PRN; Protocol PRN Reason: Hypoglycemia Protocol Last Admin: 03/10/17 05:24 Dose: 15 gm Divalproex Sodium (Depakote Dr) 750 mg PO BID [facility] Last Admin: 03/20/17 09:53 Dose: 750 mg Enoxaparin Sodium (Lovenox) 40 mg SC DAILY [facility] Last Admin: 03/20/17 09:54 Dose: 40 mg Glucagon (Glucagen Diagnostic Kit) 0 mg IM STAT PRN; Protocol PRN Reason: Hypoglycemia Protocol Haloperidol (Haldol) 5 mg PO Q1H PRN PRN Reason: agitation max 4x/24h Last Admin: 03/13/17 17:18 Dose: 5 mg Haloperidol Lactate (Haldol) 5 mg IM Q1H PRN PRN Reason: aggression max 4x/24h Last Admin: 02/26/17 20:13 Dose: 5 mg Insulin Aspart (Novolog) 0 unit SC [facility] PRN Reason: Protocol Last Admin: 03/20/17 11:36 Dose: Not Given Insulin Aspart (Novolog) 8 unit SC AC [facility] Last Admin: 03/20/17 12:20 Dose: 8 unit Insulin Glargine (Lantus) 24 unit SC [facility] Last Admin: 03/19/17 21:43 Dose: 24 u Lisinopril (Zestril) 10 mg PO DAILY [facility] Last Admin: 03/20/17 09:54 Dose: 10 mg Lorazepam (Ativan) 1 mg PO Q4H PRN PRN Reason: severe agitation Last Admin: 03/13/17 17:18 Dose: 1 mg Metoprolol Succinate (Toprol Xl) 50 mg PO DAILY [facility] Last Admin: 03/20/17 09:57 Dose: 50 mg Rosuvastatin Calcium (Crestor) 10 mg PO [facility] Last Admin: 03/19/17 21:41 Dose: 10 mg - Labs Labs: 03/20/17 06:27 03/20/17 06:27 Attending/Attestation - Attestation I have personally seen and examined this patient.: Yes I have fully participated in the care of the patient.: Yes I have reviewed all pertinent clinical information, including history, physical exam and plan: Yes Notes (Text): Patient seen and examined and case discussed with medical records assistant. Patient continues to have labile sugars. Per nursing staff patient is eating all his meals. Discussed with case management, patient is awaiting psychiatric nursing/ placement. Patient's potassium is borderline high-normal. Will discontinue Lisinopril. Will start gentle IV hydration for mild acute renal insufficiency F/u case management and social work in regards to psychiatric services for possible discharge planning. Assessment/Plan 1. Schizophrenia and Bipolar disorder Aggressive Behavior * Psychiatry consulted, Dr. Burdick, Dr. Lindo, and Dr. Javier help appreciated * Palliative Care: goals of care * Per discussion with palliative care (03/07/17), Mrs. Alcala states fear of her 's aggressive behavior when he is home and is asking for him to be placed to a intermediate facility. She reports that at home, patient refuses to take his meds and insulin, becomes violent and presents threat to her and her child who is with Down Syndrome. She is also worried that her land lord would kick her out of the apartment because of his misbehavior . She is concerned about loosing place to live with her disabled child. I elicited her impression about patient's ability to make Medical decisions. Mrs. Alcala suggested that it was better not to talk to patient about it as he could get irritated and violent, as he has a habit of denying all of his diagnosis. She stated that they never discussed End of life care. She agreed to sign POLST if patient determined incompetent to make medical decisions. I allowed Mrs. Alcala to leave hospital without being seen by her , as I was concerned that after seeing her , Mr. Hill would get more irritated and aggressive about going home. * Psych is recommending [facility] evaluation on admission, patient is not eligible for [facility] admission given behaviors issue rather psychiatric issues. * Patient medically optimized for placement * [facility] screening denied the patient on 03/01/17 in the evening stating that his issue is a behavioral one not a psychiatric issue * Per Dr. Lindo, patient is stable for discharge from psychiatric perspective prior visit. However, Latest psych note (03/07/17): He is adherent to his meds but has minimal insight and is NOT able to take care of ADLs, meds, blood sugar , even basic needs without help/support or guidance. His psych condition is NO longer affecting him as negatively and he NO longer needs inpatient psych admission. However, he does NOT have the capacity to make medical decisions, as he does not grasp his conditions properly, nor is able to take care of self by himself. His is refusing to take him back fearing he will stop meds and relapse again, plus she is already taking care of their down syndrome son. Refer to wire web worker placement. This patient should not be allowed to sign AMA * Abilify 5mg PO BID * Depakote 500mg PO BID * Haldol 5mg [id number] agitation/ IM Q1H aggression * Ativan 1mg PO Q4H PRN severe agitation 2. History of Uncontrolled Diabetes Mellitus, non-compliant * Endocrine on consult, Dr Hernandez, help appreciated- * Sugars are liable afebrile * HgA1C 02/2017 - 13.4 * Accuchecks QAC and H * Note: patient refuses blood works at times and sugars and at times refuses to eat. However, he has been eating very well for the past three days per discussion with nursing staff. * CXR shows no active disease but evidence of COPD * Blood cultures: negative * urine cx: <10,000 CFU contamination * procalcitonin, amylase, lipase were all unremarkable * Endocrine on consult, Dr Hernandez, help appreciated- * Novolog sliding scale subq * Novolog 8 units subq AC * Lantus 24 units subHS * Continue Crestor 10mg PO HS * Hold Lisinopril to prevent hyperkalemia * Hypoglycemic protocol 3. Hyperkalemia (Resolved) * Normal (high spectrum) * D/c Lisinopril se: hyperkalemia 4. Normacytic Anemia (Stable) * Chronic in nature, Hgb at baseline * No active bleeding at this time * Will continue to monitor 5. History of Coronary Artery Disease * Continue ASA and plavix daily 6. History of Hypertension * Continue Toprol XL 50mg PO daily * increase HCTZ 25mg PO once a day 7. History of Hyperlipidemia * Increased Crestor to 10mg daily due to LDL given diabetic status * Lipid panel from 02/2017 * Triglycerides - 225 * Cholesterol - 209 * LDL - 101 * HDL - 56 8_ Prophylactic measures * Lovenox 40mg SC daily * Start NS 100cc/hr Disposition: * Patient is medical optimized. However, [facility] psych has refused the patient. Our patient is not eligible per inpatient psych at [facility] as per 03/07/17 Psych note. Will need to work with social and case management for wire web worker placement for the patient. intermediate placement patient was denied from. * Patient cannot AMA. * Social work note: 03/16/17 [facility] to followup for psychiatric services and social work has spoken with his /landlord will provide one more change before starting eviction process. * Start IV fluids for mild acute renal insuffiency and d/c Lisinopril <Jose Siegel - Last Filed: 03/20/17 18:54> Subjective - Date & Time of Evaluation Date of Evaluation: 03/20/17 Time of Evaluation: 08:14 - Subjective Subjective: Medicine Progress Note for Dr. Pappas's Service, Jose Siegel PGY1 [employer] Patient was seen and examined at [facility]. Per nursing no acute events occurred overnight. The patient reports feeling better today. The patient denies any chest pain, shortness of breath, lightheadedness, dizziness, syncopal episodes, fevers, chills, nausea, vomiting, abdominal pain, constipation, diarrhea, headaches, or any other complaints. Objective - Vital Signs/Intake and Output Vital Signs (last 24 hours): Temp Pulse Resp BP Pulse Ox 98.4 F 72 20 142/72 100 03/20/17 07:30 03/20/17 07:30 03/20/17 07:30 03/20/17 07:30 03/20/17 07:30 Intake and Output: 03/20/17 03/20/17 06:59 18:59 Intake Total 500 Balance 500 - Medications Medications: Current Medications Acetaminophen (Tylenol 325mg Tab) 650 mg PO Q6 PRN PRN Reason: pain. Last Admin: 03/18/17 18:12 Dose: 650 mg Aripiprazole (Abilify) 5 mg PO BID [facility] Last Admin: 03/20/17 09:54 Dose: 5 mg Aspirin (Ecotrin) 81 mg PO DAILY [facility] Last Admin: 03/20/17 09:54 Dose: 81 mg Clopidogrel Bisulfate (Plavix) 75 mg PO DAILY [facility] Last Admin: 03/20/17 09:54 Dose: 75 mg Dextrose (Dextrose 50% Inj) 0 ml IV STAT PRN; Protocol PRN Reason: Hypoglycemia Protocol Last Admin: 03/10/17 12:07 Dose: 50 ml Dextrose (Glutose 15) 0 gm PO ONCE PRN; Protocol PRN Reason: Hypoglycemia Protocol Last Admin: 03/10/17 05:24 Dose: 15 gm Divalproex Sodium (Depakote Dr) 750 mg PO BID [facility] Last Admin: 03/20/17 09:53 Dose: 750 mg Enoxaparin Sodium (Lovenox) 40 mg SC DAILY [facility] Last Admin: 03/20/17 09:54 Dose: 40 mg Glucagon (Glucagen Diagnostic Kit) 0 mg IM STAT PRN; Protocol PRN Reason: Hypoglycemia Protocol Haloperidol (Haldol) 5 mg PO Q1H PRN PRN Reason: agitation max 4x/24h Last Admin: 03/13/17 17:18 Dose: 5 mg Haloperidol Lactate (Haldol) 5 mg IM Q1H PRN PRN Reason: aggression max 4x/24h Last Admin: 02/26/17 20:13 Dose: 5 mg Insulin Aspart (Novolog) 0 unit SC [facility] PRN Reason: Protocol Last Admin: 03/20/17 11:36 Dose: Not Given Insulin Aspart (Novolog) 8 unit SC AC [facility] Last Admin: 03/20/17 07:54 Dose: 8 unit Insulin Glargine (Lantus) 24 unit SC [facility] Last Admin: 03/19/17 21:43 Dose: 24 u Lisinopril (Zestril) 10 mg PO DAILY [facility] Last Admin: 03/20/17 09:54 Dose: 10 mg Lorazepam (Ativan) 1 mg PO Q4H PRN PRN Reason: severe agitation Last Admin: 03/13/17 17:18 Dose: 1 mg Metoprolol Succinate (Toprol Xl) 50 mg PO DAILY [facility] Last Admin: 03/20/17 09:57 Dose: 50 mg Rosuvastatin Calcium (Crestor) 10 mg PO [facility] Last Admin: 03/19/17 21:41 Dose: 10 mg - Labs Labs: 03/20/17 06:27 03/20/17 06:27 - Head Exam Head Exam: ATRAUMATIC, NORMAL INSPECTION, NORMOCEPHALIC - Eye Exam Eye Exam: EOMI, Normal appearance, PERRL. absent: Periorbital tenderness Pupil Exam: NORMAL ACCOMODATION, PERRL. absent: Irregular, Unequal - ENT Exam ENT Exam: Mucous Membranes Moist, Normal Exam, Normal Oropharynx - Neck Exam Neck Exam: Normal Inspection - Respiratory Exam Respiratory Exam: Clear to Ausculation Bilateral, NORMAL BREATHING PATTERN. absent: Chest Wall Tenderness, Prolonged Expiratory Phase, Respiratory Distress - Cardiovascular Exam Cardiovascular Exam: REGULAR RHYTHM, +S1, +S2 - GI/Abdominal Exam GI & Abdominal Exam: Soft, Normal Bowel Sounds. absent: Tenderness, Hyperactive Bowel Sounds - Extremities Exam Extremities Exam: Full ROM, Normal Inspection. absent: Joint Swelling, Pedal Edema, Tenderness - Back Exam Back Exam: NORMAL INSPECTION. absent: CVA tenderness (L), CVA tenderness (R), paraspinal tenderness - Neurological Exam Neurological Exam: Alert, Awake, CN II-XII Intact - Psychiatric Exam Psychiatric exam: Normal Affect, Normal Mood - Skin Skin Exam: Dry, Intact, Normal Color, Warm Assessment and Plan - Assessment and Plan (Free Text) Assessment: 56 year old male with a past medical history of bipolar, schizophrenia, dementia , CAD, CHF, diabetes, DKA, hypertension and anemia who was admitted to the hospital for altered mental status. Plan: Schizophrenia and Bipolar disorder * Psychiatry consulted, Dr. Burdick, recommendations appreciated * Psych was recommending [facility] evaluation for wire web worker care * Patient medically optimized for placement * [facility] screening denied the patient on 03/01/17 in the evening stating that his issue is a behavioral one not a psychiatric issue * Per Dr. Lindo, patient is stable for discharge from psychiatric perspective prior visit. However, Latest psych note (03/07/17): He is adherent to his meds but has minimal insight and is NOT able to take care of ADLs, meds, blood sugar , even basic needs without help/support or guidance. His psych condition is NO longer affecting him as negatively and he NO longer needs inpatient psych admission. However, he does NOT have the capacity to make medical decisions, as he does not grasp his conditions properly, nor is able to take care of self by himself. His is refusing to take him back fearing he will stop meds and relapse again, plus she is already taking care of their down syndrome son. Refer to wire web worker placement. This patient should not be allowed to sign AMA * Consulted Palliative Care for Goals of care. - Mrs. Alcala stated that they never discussed End of life care. She agreed to sign POLST if patient determined incompetent to make medical decisions * Medical Management per psych team * Continue Abilify 5mg PO BID, Depakote 750mg PO BID * Haldol 5mg [id number] agitation/ IM Q1H aggression * Ativan 1mg PO Q4H PRN severe agitation History of Uncontrolled Diabetes Mellitus, non-compliant * Stable, afebrile * HgA1C 02/2017 - 13.4 * Accuchecks today range from 136-414 * CXR shows no active disease but evidence of COPD * UA shows 1+ protein, 3+glucose and 6-10 hyaline casts * Blood cx no growth for 5 days, urine cx <10,000 CFU contamination * Procalcitonin, amylase, lipase were all unremarkable * Endocrine on consult, Dr Hernandez, help appreciated- * Novolog 8 units AC * ISS, accuchecks ACHS * Lantus 24 Units HS * Continue Crestor 10mg PO daily * Hypoglycemic protocol * Patient has been getting additional snacks, causing his labile blood sugars. * Discussed with patient to not and have extra snacks during the day as it can cause his blood sugar to spike. JORGE L - Creatinine of 1.5 today. Will start gentle hydration. Will monitor with serial CMP's. Hyperkalemia (Resolved) * Potassium was 5.8 on admission, patient was given insulin. * Will continue to monitor with serial CMP's. Normacytic Anemia (Stable) * Chronic in nature, Hgb at baseline * No active bleeding at this time * Will continue to monitor * History of Coronary Artery Disease * Continue ASA and plavix daily * Continue Crestor 10mg PO HS History of Hypertension * Continue Toprol XL 50mg PO daily * HCTZ stopped on 03/17/17 due to uncontrolled blood sugars * Continue Lisinopril 10mg po daily(Started on 03/17/17). * Will continue to monitor SBP. History of Hyperlipidemia * Continue Crestor to 10mg daily. * Lipid panel from 02/2017 * Triglycerides - 225 * Cholesterol - 209 * LDL - 101 * HDL - 56 Prophylactic measures * Lovenox 40mg SC daily Disposition: agreed to take patient home. division human resources manager working on getting psychiatric services for home. Pt to be discharged once this is done. Currently awaiting approval for possible [facility] daycare.
[2017-03-20] MEDS: Sodium Chloride 0.9% 1,000 ML IV SCH (14:52)
--- NOTE | 2017-03-20 15:06 | PN ---
DATE: ENDOCRINOLOGY FOLLOWUP NOTE LOCATION: Room 359. SUBJECTIVE: This is a 56-year-old male with recent uncontrolled type 2 insulin-requiring diabetes, now being followed closely for metabolic management. His metabolic lability and extremes of glycemic fluctuations are starting to improve at this time as noted and the latest glucose levels have ranged from 167 to 226 mg/dL. It was 315 yesterday as noted. The latest chemistry showed a BUN of 42, sodium 131, potassium 5.1, chloride 98, CO2 of 30, glucose 174, creatinine 1.5. PLAN: So at this time, we will continue the same basal and bolus insulin regimen to allow for dose equilibration and keep him on the Lantus given as 24 units subcu at bedtime daily as ordered. We will continue the NovoLog given as 8 units subcu t.i.d. before meals as given. We will titrate incrementally as indicated to optimize metabolic control. We will follow. Brook Hernandez MD
[2017-03-20] MEDS: (Lantus) Insulin Glargine, Recombinant SC SCH (21:49)
[2017-03-21] MEDS: Sodium Chloride 0.9% 1,000 ML IV SCH ×3 (00:37→21:32)
--- NOTE | 2017-03-21 06:34 | PN ---
DATE: ENDOCRINOLOGY FOLLOWUP NOTE LOCATION: Room 359. This is a 56-year-old male with recent uncontrolled type 2 insulin requiring diabetes, now being followed closely for metabolic management. His glycemic levels are fluctuating, but much improved at this time and the latest glucose levels have ranged from 208 to 282 mg/dL. The latest chemistry showed a BUN of 42, sodium 131, potassium 5.1, chloride 98, CO2 32 , glucose 134, and creatinine 1.5. So at this time, we will continue the same basal and bolus insulin regimen as given, Lantus given as 24 units subcu at bedtime daily as ordered. We will continue the NovoLog given as 8 units subcu t.i.d. before meals as ordered. We will titrate incrementally as indicated to optimize metabolic control. We will follow. Brook Hernandez MD
[2017-03-21] MEDS: (Novolog) Insulin Aspart, Recombinant 100 u/ml 10 ml vial SC SCH ×8 (08:30→21:34)
[2017-03-21 09:14] LABS: BASO # 0.1 K/uL (0.0-0.2); BASO % 0.8 % (0.0-2.0); EOS # 0.2 K/uL (0.0-0.7); EOS % 2.7 % (0.0-4.0); HEMOGLOBIN 9.3 g/dL (12.0-18.0); LYMPH # 3.1 K/uL (1.0-4.3); LYMPH % 41.4 % (20.0-40.0); MEAN CORPUSCULAR HEMOGLOBIN 31.3 pg (27.0-31.0); MEAN PLATELET VOLUME 7.5 fL (7.2-11.7); MONO # 0.6 K/uL (0.0-0.8); MONO % 8.5 % (0.0-10.0); NEUT # 3.5 K/uL (1.8-7.0); NEUT % 46.6 % (50.0-75.0); NRBC % 0.1 % (0.0-2.0); RBC 2.96 Mil/uL (4.40-5.90); RED CELL DISTRIBUTION WIDTH 13.9 % (11.5-14.5); WHITE BLOOD COUNT 7.6 K/uL (4.8-10.8)
[2017-03-21] MEDS: Metoprolol Succinate 50 mg XL Tab PO SCH (09:28)
[2017-03-21] MEDS: Enoxaparin 40 mg Syringe SC SCH (09:28)
[2017-03-21] MEDS: Divalproex 250 mg DR Tab PO SCH ×2 (09:29→17:42)
[2017-03-21 09:40] LABS: ALB/GLOB RATIO 1.4 (1.0-2.1); ALBUMIN 3.7 g/dL (3.5-5.0); ALT/SGPT 16 U/L (21-72); AST/SGOT 17 U/L (17-59); BLOOD UREA NITROGEN 43 mg/dL (9-20); CALCIUM 8.2 mg/dl (8.6-10.4); GFR AFRICAN-AMERICAN > 60; GFR NON-AFRICAN AMERICAN 52
--- NOTE | 2017-03-21 13:59 | CP.PCM.PN ---
Subjective - Date & Time of Evaluation Date of Evaluation: 03/21/17 Time of Evaluation: 09:56 - Subjective Subjective: Medicine Progress Note for Dr. Pappas's Service, Jose Siegel PGY1 [employer] Patient was seen and examined at [facility]. Per nursing no acute events occurred overnight. The patient reports feeling better today. The patient denies any dizziness, syncopal episodes, fevers, chills, nausea, changes in vision, abdominal pain, numbness or tingling in the extremities, vomiting, abdominal pain, constipation, diarrhea, headaches, or any other complaints. Objective - Vital Signs/Intake and Output Vital Signs (last 24 hours): Temp Pulse Resp BP Pulse Ox 98.1 F 73 20 139/70 99 03/21/17 08:00 03/21/17 08:00 03/21/17 08:00 03/21/17 08:00 03/21/17 08:00 Intake and Output: 03/21/17 03/21/17 06:59 18:59 Intake Total 1080 Balance 1080 - Medications Medications: Current Medications Acetaminophen (Tylenol 325mg Tab) 650 mg PO Q6 PRN PRN Reason: pain. Last Admin: 03/18/17 18:12 Dose: 650 mg Aripiprazole (Abilify) 5 mg PO BID [facility] Last Admin: 03/21/17 09:29 Dose: 5 mg Aspirin (Ecotrin) 81 mg PO DAILY [facility] Last Admin: 03/21/17 09:29 Dose: 81 mg Clopidogrel Bisulfate (Plavix) 75 mg PO DAILY [facility] Last Admin: 03/21/17 09:28 Dose: 75 mg Dextrose (Dextrose 50% Inj) 0 ml IV STAT PRN; Protocol PRN Reason: Hypoglycemia Protocol Last Admin: 03/10/17 12:07 Dose: 50 ml Dextrose (Glutose 15) 0 gm PO ONCE PRN; Protocol PRN Reason: Hypoglycemia Protocol Last Admin: 03/10/17 05:24 Dose: 15 gm Divalproex Sodium (Depakote Dr) 750 mg PO BID [facility] Last Admin: 03/21/17 09:29 Dose: 750 mg Enoxaparin Sodium (Lovenox) 40 mg SC DAILY [facility] Last Admin: 03/21/17 09:28 Dose: 40 mg Glucagon (Glucagen Diagnostic Kit) 0 mg IM STAT PRN; Protocol PRN Reason: Hypoglycemia Protocol Haloperidol (Haldol) 5 mg PO Q1H PRN PRN Reason: agitation max 4x/24h Last Admin: 03/13/17 17:18 Dose: 5 mg Haloperidol Lactate (Haldol) 5 mg IM Q1H PRN PRN Reason: aggression max 4x/24h Last Admin: 02/26/17 20:13 Dose: 5 mg Sodium Chloride (Sodium Chloride 0.9%) 1,000 mls @ 100 mls/hr IV .Q10H [facility] Last Admin: 03/21/17 09:29 Dose: Not Given Insulin Aspart (Novolog) 0 unit SC ACHS [facility] PRN Reason: Protocol Last Admin: 03/21/17 11:36 Dose: Not Given Insulin Aspart (Novolog) 8 unit SC AC [facility] Last Admin: 03/21/17 12:00 Dose: 8 unit Insulin Glargine (Lantus) 24 unit SC [facility] Last Admin: 03/20/17 21:49 Dose: 24 u Lorazepam (Ativan) 1 mg PO Q4H PRN PRN Reason: severe agitation Last Admin: 03/13/17 17:18 Dose: 1 mg Metoprolol Succinate (Toprol Xl) 50 mg PO DAILY [facility] Last Admin: 03/21/17 09:28 Dose: 50 mg Rosuvastatin Calcium (Crestor) 10 mg PO [facility] Last Admin: 03/20/17 21:25 Dose: 10 mg - Labs Labs: 03/21/17 09:03 03/21/17 09:03 - Head Exam Head Exam: ATRAUMATIC, NORMAL INSPECTION, NORMOCEPHALIC - Eye Exam Eye Exam: EOMI, Normal appearance, PERRL. absent: Periorbital tenderness Pupil Exam: NORMAL ACCOMODATION, PERRL. absent: Irregular, Unequal - ENT Exam ENT Exam: Mucous Membranes Moist, Normal Oropharynx - Neck Exam Neck Exam: Full ROM. absent: Lymphadenopathy, Thyromegaly - Respiratory Exam Respiratory Exam: Clear to Ausculation Bilateral, NORMAL BREATHING PATTERN. absent: Respiratory Distress - Cardiovascular Exam Cardiovascular Exam: REGULAR RHYTHM, RRR, +S1, +S2. absent: Gallop, Rubs - GI/Abdominal Exam GI & Abdominal Exam: Soft, Normal Bowel Sounds. absent: Rigid, Hyperactive Bowel Sounds - Extremities Exam Extremities Exam: Full ROM, Normal Inspection. absent: Joint Swelling, Pedal Edema - Back Exam Back Exam: NORMAL INSPECTION. absent: CVA tenderness (L), CVA tenderness (R), paraspinal tenderness - Neurological Exam Neurological Exam: Alert, Awake, CN II-XII Intact - Psychiatric Exam Psychiatric exam: Normal Affect, Normal Mood - Skin Skin Exam: Dry, Intact, Normal Color, Warm Assessment and Plan - Assessment and Plan (Free Text) Assessment: 56 year old male with a past medical history of bipolar, schizophrenia, dementia , CAD, CHF, diabetes, DKA, hypertension and anemia who was admitted to the hospital for altered mental status. Plan: Schizophrenia and Bipolar disorder * Psychiatry consulted, Dr. Burdick, recommendations appreciated * Psych was recommending [facility] evaluation for control room technician care * Patient medically optimized for placement * [facility] screening denied the patient on 03/01/17 in the evening stating that his issue is a behavioral one not a psychiatric issue * Per Dr. Lindo, patient is stable for discharge from psychiatric perspective prior visit. However, Latest psych note (03/07/17): He is adherent to his meds but has minimal insight and is NOT able to take care of ADLs, meds, blood sugar , even basic needs without help/support or guidance. His psych condition is NO longer affecting him as negatively and he NO longer needs inpatient psych admission. However, he does NOT have the capacity to make medical decisions, as he does not grasp his conditions properly, nor is able to take care of self by himself. His is refusing to take him back fearing he will stop meds and relapse again, plus she is already taking care of their down syndrome son. Refer to alf placement. This patient should not be allowed to sign AMA * Consulted Palliative Care for Goals of care. - Mrs. Alcala stated that they never discussed End of life care. She agreed to sign POLST if patient determined incompetent to make medical decisions * Medical Management per psych team * Continue Abilify 5mg PO BID, Depakote 750mg PO BID * Haldol 5mg [id number] agitation/ IM Q1H aggression * Ativan 1mg PO Q4H PRN severe agitation History of Uncontrolled Diabetes Mellitus, non-compliant * Stable, afebrile * HgA1C 02/2017 - 13.4 * Accuchecks today range from 136-414 * CXR shows no active disease but evidence of COPD * UA shows 1+ protein, 3+glucose and 6-10 hyaline casts * Blood cx no growth for 5 days, urine cx <10,000 CFU contamination * Procalcitonin, amylase, lipase were all unremarkable * Endocrine on consult, Dr Hernandez, help appreciated- * Novolog 8 units AC * ISS, accuchecks ACHS * Lantus 24 Units HS * Continue Crestor 10mg PO daily * Hypoglycemic protocol * Patient has been getting additional snacks, causing his labile blood sugars. * Discussed with patient to not and have extra snacks during the day as it can cause his blood sugar to spike. JORGE L - Creatinine of 1.4 today. Currently not on hydration due to patient's refusal. Will continue to monitor with serial CMP's. Hyperkalemia (Resolved) * Potassium was 5.8 on admission, patient was given insulin. * Will continue to monitor with serial CMP's. Normacytic Anemia (Stable) * Chronic in nature, Hgb at baseline * No active bleeding at this time * Will continue to monitor * History of Coronary Artery Disease * Continue ASA and plavix daily * Continue Crestor 10mg PO HS History of Hypertension * Continue Toprol XL 50mg PO daily * HCTZ stopped on 03/17/17 due to uncontrolled blood sugars * Continue Lisinopril 10mg po daily(Started on 03/17/17). * Will continue to monitor SBP. History of Hyperlipidemia * Continue Crestor to 10mg daily. * Lipid panel from 02/2017 * Triglycerides - 225 * Cholesterol - 209 * LDL - 101 * HDL - 56 Prophylactic measures * Lovenox 40mg SC daily Disposition: agreed to take patient home. manager occupational working on getting psychiatric services for home. Pt to be discharged once this is done. Approved [facility] daycare. Pending Home insulin approval and transportation will likely be discharged in the A.M.
[2017-03-21] MEDS: (Lantus) Insulin Glargine, Recombinant SC SCH (21:33)
[2017-03-22 07:29] LABS: BASO # 0.1 K/uL (0.0-0.2); BASO % 0.7 % (0.0-2.0); EOS # 0.2 K/uL (0.0-0.7); EOS % 2.6 % (0.0-4.0); HEMOGLOBIN 9.4 g/dL (12.0-18.0); LYMPH # 3.4 K/uL (1.0-4.3); MEAN CELL VOLUME 90.7 fL (80.0-94.0); MEAN CORPUSCULAR HEMOGLOBIN 31.3 pg (27.0-31.0); MEAN CORPUSCULAR HGB CONC 34.5 g/dL (33.0-37.0); MEAN PLATELET VOLUME 7.5 fL (7.2-11.7); MONO # 0.6 K/uL (0.0-0.8); MONO % 8.3 % (0.0-10.0); NEUT # 3.4 K/uL (1.8-7.0); NEUT % 44.4 % (50.0-75.0); RBC 3.01 Mil/uL (4.40-5.90); RED CELL DISTRIBUTION WIDTH 13.8 % (11.5-14.5); WHITE BLOOD COUNT 7.8 K/uL (4.8-10.8)
[2017-03-22] MEDS: (Novolog) Insulin Aspart, Recombinant 100 u/ml 10 ml vial SC SCH ×6 (07:36→16:35)
[2017-03-22 08:07] LABS: ALBUMIN 3.5 g/dL (3.5-5.0); ALT/SGPT 14 U/L (21-72); AST/SGOT 18 U/L (17-59); BLOOD UREA NITROGEN 39 mg/dL (9-20); CALCIUM 8.5 mg/dl (8.6-10.4); GFR AFRICAN-AMERICAN > 60; GFR NON-AFRICAN AMERICAN 57
[2017-03-22 08:13] LABS: ALB/GLOB RATIO 1.4 (1.0-2.1)
[2017-03-22] MEDS: Divalproex 250 mg DR Tab PO SCH ×2 (09:55→17:26)
[2017-03-22] MEDS: Enoxaparin 40 mg Syringe SC SCH (09:56)
[2017-03-22] MEDS: Metoprolol Succinate 50 mg XL Tab PO SCH (09:58)
[2017-03-22 15:33] VITALS: BP 174/83; PULSE 78; TEMP 98.3; O2SAT 100
[2017-03-22] MEDS: Sodium Chloride 0.9% 1,000 ML IV SCH (16:05)
--- NOTE | 2017-03-22 17:58 | CP.PCM.DIS ---
Provider - Provider Date of Admission: 02/24/17 18:34 Attending physician: Raymond Wong MD Primary care physician: PMD: None Consults: Consults: Endocrine (Dr. Hernandez), Psych (Dr. Lindo) Time Spent in preparation of Discharge (in minutes): 45 Hospital Course - Lab Results Lab Results: Micro Results 02/26/17 22:54 Blood Blood Culture - Final NO GROWTH AFTER 5 DAYS 02/26/17 22:54 Blood Gram Stain - Final TEST NOT PERFORMED 02/26/17 22:54 Blood Blood Culture - Final NO GROWTH AFTER 5 DAYS 02/26/17 22:54 Blood Gram Stain - Final TEST NOT PERFORMED 02/26/17 22:54 Urine,Clean Catch Urine Culture - Final <10,000 CFU/ML. MULTIPLE SPECIES. PROBABLE CONTAMINATION. Most Recent Lab Values WBC 7.8 K/uL (4.8-10.8) 03/22/17 07:12 RBC 3.01 Mil/uL (4.40-5.90) L 03/22/17 07:12 Hgb 9.4 g/dL (12.0-18.0) L 03/22/17 07:12 Hct 27.3 % (35.0-51.0) L 03/22/17 07:12 MCV 90.7 fL (80.0-94.0) 03/22/17 07:12 MCH 31.3 pg (27.0-31.0) H 03/22/17 07:12 MCHC 34.5 g/dL (33.0-37.0) 03/22/17 07:12 RDW 13.8 % (11.5-14.5) 03/22/17 07:12 Plt Count 256 K/uL (130-400) 03/22/17 07:12 MPV 7.5 fL (7.2-11.7) 03/22/17 07:12 Neut % (Auto) 44.4 % (50.0-75.0) L 03/22/17 07:12 Lymph % (Auto) 44.0 % (20.0-40.0) H 03/22/17 07:12 O'Brien % (Auto) 8.3 % (0.0-10.0) 03/22/17 07:12 Eos % (Auto) 2.6 % (0.0-4.0) 03/22/17 07:12 Baso % (Auto) 0.7 % (0.0-2.0) 03/22/17 07:12 Neut # 3.4 K/uL (1.8-7.0) 03/22/17 07:12 Lymph # 3.4 K/uL (1.0-4.3) 03/22/17 07:12 O'Brien # 0.6 K/uL (0.0-0.8) 03/22/17 07:12 Eos # 0.2 K/uL (0.0-0.7) 03/22/17 07:12 Baso # 0.1 K/uL (0.0-0.2) 03/22/17 07:12 Puncture Site Rra 02/26/17 11:25 pCO2 19 mm/Hg (35-45) L* 02/26/17 11:25 pO2 133 mm/Hg (80-100) H 02/26/17 11:25 HCO3 15.3 mmol/L (21-28) L 02/26/17 11:25 ABG pH 7.37 (7.35-7.45) 02/26/17 11:25 ABG Total CO2 11.6 mmol/L (22-28) L 02/26/17 11:25 ABG O2 Saturation 100.3 % (95-98) H 02/26/17 11:25 ABG Base Excess -12.4 mmol/L (-2.0-3.0) L 02/26/17 11:25 ABG Hemoglobin 10.2 g/dL (11.7-17.4) L 02/26/17 11:25 ABG Carboxyhemoglobin 2.4 % (0.5-1.5) H 02/26/17 11:25 POC ABG HHb (Measured) -0.3 % (0.0-5.0) L 02/26/17 11:25 ABG Methemoglobin 1.1 % (0.0-3.0) 02/26/17 11:25 Artis Test P 02/26/17 11:25 A-a O2 Difference -7.0 mm/Hg 02/26/17 11:25 Respiratory Index -0.1 02/26/17 11:25 Hgb O2 Saturation 96.8 % (95.0-98.0) 02/26/17 11:25 FiO2 21.0 % 02/26/17 11:25 Crit Value Called To Latrell banda do 02/26/17 11:25 Crit Value Called By Dom aguirre safety sitter 02/26/17 11:25 Crit Value Read Back Y 02/26/17 11:25 Blood Gas Notified Time 1132 02/26/17 11:25 Sodium 130 mmol/L (132-148) L 03/22/17 07:12 Potassium 5.1 mmol/L (3.6-5.2) 03/22/17 07:12 Chloride 96 mmol/L (98-107) L 03/22/17 07:12 Carbon Dioxide 29 mmol/L (22-30) 03/22/17 07:12 Anion Gap 10 (10-20) 03/22/17 07:12 BUN 39 mg/dL (9-20) H 03/22/17 07:12 Creatinine 1.3 mg/dL (0.8-1.5) 03/22/17 07:12 Est GFR ( Amer) > 60 03/22/17 07:12 Est GFR (Non-Af Amer) 57 03/22/17 07:12 POC Glucose (mg/dL) 207 mg/dL (65-110) H 03/22/17 16:06 Random Glucose 90 mg/dL (75-110) 03/22/17 07:12 Hemoglobin A1c 13.4 % (4.2-6.5) H 02/26/17 07:54 Calcium 8.5 mg/dl (8.6-10.4) L 03/22/17 07:12 Phosphorus 2.9 mg/dL (2.5-4.5) 03/02/17 08:03 Magnesium 2.2 mg/dL (1.6-2.3) 03/07/17 06:28 Total Bilirubin 0.3 mg/dL (0.2-1.3) 03/22/17 07:12 AST 18 U/L (17-59) 03/22/17 07:12 ALT 14 U/L (21-72) L 03/22/17 07:12 Alkaline Phosphatase 45 U/L (38-126) 03/22/17 07:12 Total Protein 6.0 g/dL (6.3-8.3) L 03/22/17 07:12 Albumin 3.5 g/dL (3.5-5.0) 03/22/17 07:12 Globulin 2.5 gm/dL (2.2-3.9) 03/22/17 07:12 Albumin/Globulin Ratio 1.4 (1.0-2.1) 03/22/17 07:12 Triglycerides 207 mg/dL (0-149) H 02/26/17 07:54 Cholesterol 241 mg/dL (0-199) H 02/26/17 07:54 LDL Cholesterol Direct 138 mg/dL (0-129) H 02/26/17 07:54 HDL Cholesterol 81 mg/dL (30-70) H 02/26/17 07:54 Amylase 59 U/L (30-110) 02/26/17 07:54 Lipase 120 U/L (23-300) 02/26/17 07:54 Procalcitonin 0.08 NG/ML (0.19-0.49) L 02/26/17 22:54 Free T4 1.20 ng/dL (0.78-2.19) 02/28/17 06:04 TSH 3rd Generation 2.85 mIU/L (0.46-4.68) 02/28/17 06:04 Urine Color Yellow (YELLOW) 02/26/17 16:18 Urine Clarity Clear (Clear) 02/26/17 16:18 Urine pH 5.0 (5.0-8.0) 02/26/17 16:18 Ur Specific [place] 1.015 (1.003-1.030) 02/26/17 16:18 Urine Protein 1+ mg/dL (NEGATIVE) H 02/26/17 16:18 Urine Glucose (UA) 3+ mg/dL (Normal) H 02/26/17 16:18 Urine Ketones Trace mg/dL (NEGATIVE) 02/26/17 16:18 Urine Blood Negative (NEGATIVE) 02/26/17 16:18 Urine Nitrate Negative (NEGATIVE) 02/26/17 16:18 Urine Bilirubin Negative (NEGATIVE) 02/26/17 16:18 Urine Urobilinogen Normal mg/dL (0.2-1.0) 02/26/17 16:18 Ur Leukocyte Esterase Neg William/uL (Negative) 02/26/17 16:18 Urine WBC (Auto) 1 /hpf (0-5) 02/26/17 16:18 Urine RBC (Auto) 2 /hpf (0-3) 02/26/17 16:18 Urine Bacteria Rare (<OCC) 02/26/17 16:18 Hyaline Casts 6-10 /lpf (0-2) H 02/26/17 16:18 Urine Opiates Screen Negative (NEGATIVE) 02/24/17 01:39 Urine Methadone Screen Negative (NEGATIVE) 02/24/17 01:39 Ur Barbiturates Screen Negative (NEGATIVE) 02/24/17 01:39 Valproic Acid 55.4 ug/mL (50.0-100.0) 03/16/17 07:51 Ur Phencyclidine Scrn Negative (NEGATIVE) 02/24/17 01:39 Ur Amphetamines Screen Negative (NEGATIVE) 02/24/17 01:39 U Benzodiazepines Scrn Positive (NEGATIVE) 02/24/17 01:39 U Oth Cocaine Metabols Negative (NEGATIVE) 02/24/17 01:39 U Cannabinoids Screen Negative (NEGATIVE) 02/24/17 01:39 Alcohol, Quantitative < 10 mg/dl (0-10) 02/24/17 01:53 - Hospital Course Hospital Course: CC: Psychotic behavior HISTORY OF PRESENT ILLNESS: This is a 56 year old male with PMHx bipolar, schizophrenia, dementia, CAD, CHF, diabetes, DKA, HTN, anemia who presents to the hospital brought in for psychotic behavior. Patient's called the police because the patient began knocking on the doors of their neighbors and was behaving bizarrely. Patient himself was very incoherent and unable to provide much insight as to why he was brought in. At this time, patient seems to deny suicidal or homicidal ideation but patient was apparently very agitated prompting restraints earlier during the day. By the time that the patient was seen in the ED, he had been heavily medicated including haldol, depakote, and versed. He was not on restraints by the time he was seen in the evening. Patient denies any acute complaints at the moment. SUMMARY OF COURSE: Sadi Hill is a 56-year-old Palestinian-speaking male who was admitted to [facility] on 02/24/2018-03/22/2017 for altered mental status. His medical history is notable for bipolar disorder, schizophrenia, dementia, CAD, CHF, uncontrolled diabetes, DKA HTN and anemia. While at the hospital, his labile blood sugars were monitored and treated appropriately. Endocrine and Psych were consulted. Imaging study results are stated below. Endocrine consult Dr. Hernandez started Mr. Hill on new diabetes medication and adjusted the doses to optimize metabolic control. Psych consult Dr. Lindo started medications for bipolar disorder and schizophrenia and says that Mr. Hill is psychiatrically stable clear for discharge. The patient is to go home with his and is approved for [facility] daycare and home insulin. He is also to follow up in [address] Lindo. Imaging: EKG 02/24: Normal sinus rhythm, normal ECG Head CT 02/24: No acute intracranial abnormality. Mild chronic microangiopathic changes and mild global parenchymal volume loss, slightly advanced for the patients age. Small old infarction in the left thalamus. Chest X-Ray 02/26: No active pulmonary disease. COPD. DISCHARGE MEDICATIONS: Aspirin 81 mg PO daily Plavix 75 mg PO daily Depakote DR 500 mg PO BID Insulin Aspart, Recombinant 100 unit/ml, 12 unit SQ HS Lantus 30 unit SQ HS Lisinopril 20 mg PO daily Ativan 1 mg PO daily Metoprolol Succinate 50 mg PO daily Multivitamins 1 tab PO daily Pravastatin sodium 20 mg PO HS Aldactone 25 mg PO BID Ambien 10 mg PO HS Discharge Exam - Head Exam Head Exam: ATRAUMATIC, NORMAL INSPECTION, NORMOCEPHALIC - Eye Exam Eye Exam: EOMI, Normal appearance, PERRL Pupil Exam: NORMAL ACCOMODATION, PERRL. absent: Irregular, Unequal - ENT Exam ENT Exam: Mucous Membranes Moist, Normal Oropharynx - Respiratory Exam Respiratory Exam: Clear to PA & Lateral, NORMAL BREATHING PATTERN, UNREMARKABLE. absent: Decreased Breath Sounds, Rales, Rhonchi - Cardiovascular Exam Cardiovascular Exam: REGULAR RHYTHM, +S1, +S2. absent: Gallop, Rubs - GI/Abdominal Exam GI & Abdominal Exam: Normal Bowel Sounds, Unremarkable. absent: Distended, Hypoactive Bowel Sounds, Organomegaly, Pulsatile Mass - Extremities Exam Extremities exam: full ROM - Back Exam Back exam: NORMAL INSPECTION. absent: CVA tenderness (L), CVA tenderness (R), paraspinal tenderness - Neurological Exam Neurological exam: Alert, CN II-XII Intact, Normal Gait - Psychiatric Exam Psychiatric exam: Normal Affect, Normal Mood - Skin Skin Exam: Dry, Intact Discharge Plan - Discharge Medications Prescriptions: ARIPiprazole [Abilify] 5 mg PO BID #28 tab Aspirin [Adult Low Dose Aspirin EC] 81 mg PO DAILY #30 tablet. Clopidogrel [Plavix] 75 mg PO DAILY #30 tab Divalproex [Depakote ER] 750 mg PO BID #28 ter Insulin Aspart, Recombinant [Novolog] 1 unit IV QAM #1 vial Insulin Glargine, Recombina [Lantus] 24 unit SC QPM #1 vial Lisinopril [Prinivil] 20 mg PO DAILY #30 tablet LORazepam [Ativan] 1 mg PO Q4 #180 tab Metoprolol Succinate [Toprol XL] 50 mg PO DAILY #30 tab Mv,Min10/Folic Acid/D3/Ala/Lut [Strovite One Caplet] 1 tab PO DAILY #30 tab Pravastatin Sodium [Pravachol] 20 mg PO HS #30 tablet Spironolactone [Aldactone] 25 mg PO BID #60 tab Zolpidem [Ambien] 10 mg PO HS #30 tab - Follow Up Plan Condition: FAIR Disposition: HOME/ ROUTINE Instructions: Metoprolol (By mouth), Spironolactone (By mouth), Lisinopril (By mouth), Lorazepam (By mouth), Aspirin (By mouth), Pravastatin (By mouth), Zolpidem (By mouth), Clopidogrel (By mouth), Insulin Aspart, Recombinant (By injection), Aripiprazole (By mouth), Divalproex (By mouth), Insulin Glargine ( By injection), Heart Failure (DC), Diabetic Hyperglycemia (DC) Referrals: Javier Gaona MD [Staff Provider] -
--- NOTE | 2017-03-23 08:01 | PN ---
DATE: ROOM: 359 SUBJECTIVE: This is a 56-year-old male with recent uncontrolled type 2 insulin-requiring diabetes, now being followed closely for metabolic management. His glycemic levels are fluctuating but much improved at this time. The latest glucose levels have ranged from 97 to 118 and 207 mg/dL. His latest chemistry showed a BUN of 39, sodium 130, potassium 5.1, chloride 96, CO2 of 29, glucose 90, and creatinine 1.3. So at this time, we will continue the same basal and bolus insulin regimen to allow for dose equilibration and keep him on the Lantus at 24 units subcutaneous at bedtime daily as given. We will also continue the NovoLog given as 8 units subcutaneous t.i.d. before meals as ordered. We will titrate incrementally as indicated to optimize metabolic control. We will follow. Brook Hernandez MD
== END 2017-03-22 19:31 | disposition home or self-care (01) | DRG 430 ==
LOC: C.ER 00:34 → C.9E 18:34 → C.3T 20:05
PROVIDERS: ADMIT Internal Medicine; ATTEND Family Medicine
DX: F25.0 Schizoaffective disorder, bipolar type (principal); E11.00 Type 2 diabetes mellitus with hyperosmolarity without nonketotic hyperglycemic-hyperosmolar coma (NKHHC); E11.51 Type 2 diabetes mellitus with diabetic peripheral angiopathy without gangrene; E11.42 Type 2 diabetes mellitus with diabetic polyneuropathy; E11.649 Type 2 diabetes mellitus with hypoglycemia without coma; E87.5 Hyperkalemia; F03.91 Unspecified dementia, unspecified severity, with behavioral disturbance; E86.0 Dehydration; E87.1 Hypo-osmolality and hyponatremia; I11.0 Hypertensive heart disease with heart failure; I50.9 Heart failure, unspecified; J44.9 Chronic obstructive pulmonary disease, unspecified; E11.319 Type 2 diabetes mellitus with unspecified diabetic retinopathy without macular edema; D63.8 Anemia in other chronic diseases classified elsewhere; Z79.4 Long term (current) use of insulin; E78.5 Hyperlipidemia, unspecified; I25.10 Atherosclerotic heart disease of native coronary artery without angina pectoris; N28.9 Disorder of kidney and ureter, unspecified; Z51.5 Encounter for palliative care; Z79.02 Long term (current) use of antithrombotics/antiplatelets; Z79.82 Long term (current) use of aspirin; F17.210 Nicotine dependence, cigarettes, uncomplicated; F10.10 Alcohol abuse, uncomplicated; R45.6 Violent behavior

== ENCOUNTER 2017-09-12 17:43 | Inpatient (IN) | payer MEDICAID, OTHER ==
[2017-09-12] MEDS ORDERED: Sodium Chloride 0.9% 1,000 ML IV ONE (18:42)
--- NOTE | 2017-09-12 18:43 | C.PDOC ---
History Of Present Illness 56 year old male presents to the ER with a complaint of chest pain. Patient has a Hx of uncontrolled diabetes and poorly controlled schizophrenia and bipolar disordered. Patient has had multiple admission from March to June, his baseline creatinine is 1.3-1.7. Patient is edentulous, making conversation difficulty. Denies nausea, vomiting, or chest pain. Time Seen by Provider: 09/12/17 18:35 Chief Complaint (Nursing): Chest Pain History Per: Patient History/Exam Limitations: physical impairment (Edentulous) Onset/Duration Of Symptoms: Hrs Current Symptoms Are (Timing): Still Present Associated Symptoms: denies: Nausea, Dyspnea, Diaphoresis, Syncope Modifying Factors: None Exacerbating Factors: None Alleviating Factors: None Recent travel outside of the [place]: No Past Medical History Reviewed: Historical Data, Nursing Documentation, Vital Signs Vital Signs: Last Vital Signs Temp 98.7 F 09/12/17 23:30 Pulse 82 09/12/17 21:10 Resp 19 09/12/17 23:30 BP 175/76 H 09/12/17 23:30 Pulse Ox 99 09/12/17 22:00 - Medical History PMH: Anemia, Anxiety, Bipolar Disorder, CAD, CHF, Dementia, Depression, Diabetes (DKA), Fractures (Skull), HTN, Schizophrenia - [facility] Procedures INSERTION OF ENDOTRACHEAL AIRWAY INTO TRACHEA, VIA OPENING (12/06/14) INTRODUCTION OF SERUM/TOX/VACCINE INTO MUSCLE, PERC APPROACH (11/26/16) OCCUPATIONAL THERAPY (06/01/14) PHYSICAL THERAPY NEC (06/01/14) RESPIRATORY VENTILATION, 24-96 CONSECUTIVE HOURS (12/06/14) VACCINATION NEC (06/15/14) Family History: States: Unknown Family Hx - Social History Hx Tobacco Use: Yes Hx Alcohol Use: No Hx Substance Use: No - Immunization History Hx Tetanus Toxoid Vaccination: No Hx Influenza Vaccination: No Hx Pneumococcal Vaccination: No Review Of Systems Constitutional: Negative for: Fever, Chills Cardiovascular: Positive for: Chest Pain. Negative for: Palpitations Respiratory: Negative for: Cough, Shortness of Breath Gastrointestinal: Negative for: Nausea, Vomiting Musculoskeletal: Negative for: Neck Pain Neurological: Negative for: Weakness, Numbness Physical Exam - Physical Exam Appears: Chronically Ill, Other (Thin) Skin: Normal Color, Warm, Dry Head: Atraumatic, Normacephalic Eye(s): bilateral: Normal Inspection Oral Mucosa: Moist Teeth: Edentulous Neck: Normal, Supple Chest: Symmetrical, No Tenderness Cardiovascular: Rhythm Regular Respiratory: No Rales, No Rhonchi, No Wheezing Gastrointestinal/Abdominal: Soft, No Tenderness Back: No CVA Tenderness Extremity: Normal ROM (x4) Neurological/Psych: Oriented x3, Normal Speech ED Course And Treatment - Laboratory Results Result Diagrams: 09/12/17 18:56 09/12/17 18:56 Lab Interpretation: Abnormal (glucose low) ECG: Interpreted By Me ECG Rhythm: Sinus Rhythm ECG Interpretation: Normal Rate From EC O2 Sat by Pulse Oximetry: 99 Pulse Ox Interpretation: Normal - Radiology CXR: Interpreted by Me CXR Interpretation: Yes: No Acute Disease Reevaluation Time: 21:57 Reassessment Condition: Improved - Physician Consult Information Outcome Of Conversation: 2200: d/w Dr. Hoang- Medicine [employer]- ok to admit. Requests Dr. Vanegas- Cardio [employer]- for Consult. Medical Decision Making Medical Decision Making: uncontrolled DM A1c 9.8 H supposed insulin regimen @ home. Schizo/Bipolar ? compliance with psych meds Acute Renal Insuff: creat 2.3 from baseline 1.3-1.7 (lastest 06/20) prob pre-renal from chronic polyuria from uncontrolled DM hydrate and follow labs renal consult PRN Disposition Doctor Will See Patient In The: Hospital Counseled Patient/Family Regarding: Studies Performed, Diagnosis - Disposition Disposition: HOSPITALIZED Disposition Time: 21:59 Condition: GOOD - Clinical Impression Clinical Impression: Chest discomfort, Acute renal failure (ARF) - Scribe Statement The provider has reviewed the documentation as recorded by the Scribrobson Noonan All medical record entries made by the Margaretibe were at my direction and personally dictated by me. I have reviewed the chart and agree that the record accurately reflects my personal performance of the history, physical exam, medical decision making, and the department course for this patient. I have also personally directed, reviewed, and agree with the discharge instructions and disposition.
[2017-09-12 18:59] LABS: BASO # 0.1 K/uL (0.0-0.2); BASO % 0.7 % (0.0-2.0); EOS # 0.2 K/uL (0.0-0.7); EOS % 2.5 % (0.0-4.0); HEMOGLOBIN 10.5 g/dL (12.0-18.0); LYMPH # 3.4 K/uL (1.0-4.3); LYMPH % 38.7 % (20.0-40.0); MEAN CORPUSCULAR HGB CONC 33.8 g/dL (33.0-37.0); MEAN PLATELET VOLUME 7.9 fL (7.2-11.7); MONO # 0.5 K/uL (0.0-0.8); NEUT # 4.6 K/uL (1.8-7.0); NEUT % 52.1 % (50.0-75.0); NRBC % 0.1 % (0.0-2.0); RBC 3.52 Mil/uL (4.40-5.90); RED CELL DISTRIBUTION WIDTH 14.4 % (11.5-14.5); WHITE BLOOD COUNT 8.8 K/uL (4.8-10.8)
[2017-09-12 19:00] LABS: MEAN CELL VOLUME 88.6 fL (80.0-94.0)
[2017-09-12 19:09] LABS: SQUAMOUS EPITHIAL 1 /hpf (0-5); URINE BACTERIA OCC (<OCC); URINE BILIRUBIN NEGATIVE (NEGATIVE); URINE BLOOD NEGATIVE (NEGATIVE); URINE CLARITY Hazy (Clear); URINE COLOR Yellow (YELLOW); URINE GLUCOSE (UA) 3+ mg/dL (Normal); URINE LEUKOCYTE ESTERASE NEG Leu/uL (Negative); URINE PROTEIN 2+ mg/dL (NEGATIVE)
[2017-09-12 19:11] LABS: ALB/GLOB RATIO 1.4 (1.0-2.1); ALBUMIN 3.9 g/dL (3.5-5.0); ALT/SGPT 31 U/L (21-72); AST/SGOT 23 U/L (17-59); BLOOD UREA NITROGEN 53 mg/dL (9-20); CALCIUM 9.4 mg/dl (8.6-10.4); GFR AFRICAN-AMERICAN 36; GFR NON-AFRICAN AMERICAN 29
[2017-09-12 19:23] LABS: B-TYPE NATRIURETIC PEPTIDE 733 pg/mL (0-900)
[2017-09-12] MEDS ORDERED: Aspirin 325 mg EC Tablets PO STA (21:57)
[2017-09-12] MEDS ORDERED: Sod Polystyrene Sulf 15 gm/60 ml Susp PO ONE (23:23)
[2017-09-12] MEDS: Sodium Chloride 0.45% 1,000 ML IV SCH (23:40)
[2017-09-12 23:45] VITALS: BMI 24.9
[2017-09-13 02:26] VITALS: RESP 20
[2017-09-13 04:23] LABS: BASO # 0.1 K/uL (0.0-0.2); BASO % 0.7 % (0.0-2.0); EOS # 0.3 K/uL (0.0-0.7); EOS % 3.7 % (0.0-4.0); HEMOGLOBIN 9.7 g/dL (12.0-18.0); LYMPH # 3.2 K/uL (1.0-4.3); LYMPH % 39.6 % (20.0-40.0); MEAN CELL VOLUME 87.8 fL (80.0-94.0); MEAN CORPUSCULAR HGB CONC 34.2 g/dL (33.0-37.0); MONO # 0.5 K/uL (0.0-0.8); MONO % 6.7 % (0.0-10.0); NEUT % 49.3 % (50.0-75.0); RBC 3.24 Mil/uL (4.40-5.90); RED CELL DISTRIBUTION WIDTH 14.2 % (11.5-14.5)
[2017-09-13 04:55] LABS: IRON 69 ug/dL (49-181)
[2017-09-13 05:05] LABS: % IRON SATURATION 23 (20-55); TOTAL IRON BINDING CAPACITY 301 ug/dL (250-450)
[2017-09-13 05:08] LABS: ALB/GLOB RATIO 1.6 (1.0-2.1); ALBUMIN 3.5 g/dL (3.5-5.0); ALT/SGPT 29 U/L (21-72); AST/SGOT 20 U/L (17-59); BLOOD UREA NITROGEN 47 mg/dL (9-20); CALCIUM 8.8 mg/dl (8.6-10.4); GFR AFRICAN-AMERICAN 47; GFR NON-AFRICAN AMERICAN 39; HDL CHOLESTEROL 49 mg/dL (30-70)
[2017-09-13 05:12] LABS: LDL CHOLESTEROL 92 mg/dL (0-129)
[2017-09-13 05:34] LABS: FERRITIN 58.2 ng/mL
[2017-09-13 06:05] LABS: FOLATE 11.3 ng/mL
[2017-09-13 07:02] LABS: SQUAMOUS EPITHIAL < 1 /hpf (0-5); URINE BILIRUBIN NEGATIVE (NEGATIVE); URINE BLOOD NEGATIVE (NEGATIVE); URINE CLARITY Clear (Clear); URINE COLOR Yellow (YELLOW); URINE GLUCOSE (UA) NORMAL (Normal); URINE HYALINE CAST 0-2 /lpf (0-2); URINE LEUKOCYTE ESTERASE NEG Leu/uL (Negative); URINE PROTEIN 1+ mg/dL (NEGATIVE); URINE UROBILINOGEN NORMAL mg/dL (0.2-1.0)
[2017-09-13] MEDS ORDERED: (Novolin R) Insulin Human Regular 100 units/ml vial SC SCH (07:30)
[2017-09-13] MEDS: Metoprolol Succinate 100 mg XL Tab PO SCH (09:52)
[2017-09-13] MEDS: Divalproex 500 mg ER Tab PO SCH ×2 (09:53→17:30)
--- NOTE | 2017-09-13 10:03 | RAD ---
Date of service: 09/12/2017 PROCEDURE: CHEST RADIOGRAPH, 1 VIEW HISTORY: SOB COMPARISON: 02/26/2017 FINDINGS: LUNGS: Clear. PLEURA: No pneumothorax or pleural fluid seen. CARDIOVASCULAR: Normal. OSSEOUS STRUCTURES: No significant abnormalities. VISUALIZED UPPER ABDOMEN: Normal. OTHER FINDINGS: None. IMPRESSION: No active disease. No acute/significant interval changes. No significant interval change compared to the prior examination(s). Concordant results with the preliminary interpretation rendered by the emergency department physician procedure.
--- NOTE | 2017-09-13 10:11 | CP.PCM.PN ---
Subjective - Date & Time of Evaluation Date of Evaluation: 09/13/17 Time of Evaluation: 09:30 - Subjective Subjective: H&P dictated #[id number] Objective - Vital Signs/Intake and Output Vital Signs (last 24 hours): Temp Pulse Resp BP Pulse Ox 97.8 F 66 20 152/83 H 99 09/13/17 00:10 09/13/17 00:10 09/13/17 00:10 09/13/17 00:10 09/13/17 00:16 Intake and Output: 09/13/17 09/13/17 06:59 18:59 Intake Total 680 Balance 680 - Medications Medications: Current Medications Aspirin (Ecotrin) 81 mg PO DAILY [facility] Last Admin: 09/13/17 09:52 Dose: 81 mg Clopidogrel Bisulfate (Plavix) 75 mg PO DAILY [facility] Last Admin: 09/13/17 09:52 Dose: 75 mg Divalproex Sodium (Depakote Er) 500 mg PO BID [facility] Last Admin: 09/13/17 09:53 Dose: 500 mg Heparin Sodium (Porcine) (Heparin) 5,000 units SC Q12 [facility] Last Admin: 09/13/17 09:53 Dose: 5,000 units Hydralazine HCl (Apresoline) 50 mg PO TID [facility] Last Admin: 09/13/17 09:52 Dose: 50 mg Sodium Chloride (Sodium Chloride 0.45%) 1,000 mls @ 60 mls/hr IV .[id number] [facility] Last Admin: 09/12/17 23:40 Dose: 60 mls/hr Insulin Human Regular (Novolin R) 0 unit SC ACHS [facility] PRN Reason: Protocol Last Admin: 09/13/17 07:34 Dose: 4 units Metoprolol Succinate (Toprol Xl) 100 mg PO DAILY [facility] Last Admin: 09/13/17 09:52 Dose: 100 mg Rosuvastatin Calcium (Crestor) 2.5 mg PO HS [facility] - Labs Labs: 09/13/17 04:16 09/13/17 04:16
[2017-09-13] MEDS ORDERED: (Novolog) Insulin Aspart, Recombinant 100 u/ml 10 ml vial SC ONE (14:00)
--- NOTE | 2017-09-13 14:09 | CARD ---
APPROVED REPORT Date of service: 09/13/2017 EXAM: Two-dimensional and M-mode echocardiogram with Doppler and color Doppler. INDICATION Chest Pain Tobacco use RISK FACTORS Diabetes 2D DIMENSIONS IVSd1.2 (0.7-1.1cm)LVDd4.3 (3.9-5.9cm) PWd1.1 (0.7-1.1cm)LVDs2.6 (2.5-4.0cm) FS (%) 39.9 %LVEF (%)70.8 (>50%) M-Mode DIMENSIONS Left Atrium (MM)3.33 (2.5-4.0cm)IVSd1.12 (0.7-1.1cm) Aortic Root3.40 (2.2-3.7cm)LVDd4.84 (4.0-5.6cm) Aortic Cusp Exc.2.33 (1.5-2.0cm)PWd0.89 (0.7-1.1cm) FS (%) 41 %LVDs2.86 (2.0-3.8cm) LVEF (%)72 (>50%) Mitral Valve MV E Bamwxige74.4cm/sMV A Ibpzpqbd75.8cm/sE/A ratio0.7 TDI E/Lateral E'0.0E/Medial E'0.0 Tricuspid Valve TR Peak Bwiqfpnt096kd/sTR Peak Gr.26mmHg LEFT VENTRICLE The left ventricle is normal size. There is normal left ventricular wall thickness. The left ventricular function is normal. The left ventricular ejection fraction is within the normal range. No regional wall motion abnormalities noted. Transmitral Doppler flow pattern is Grade I-abnormal relaxation pattern. No left ventricle thrombus noted on this study. There is no ventricular septal defect visualized. There is no left ventricular aneurysm. There is no mass noted in the left ventricle. RIGHT VENTRICLE The right ventricle is normal size. There is normal right ventricular wall thickness. The right ventricular systolic function is normal. ATRIA The left atrium size is normal. The right atrium size is normal. The interatrial septum is intact with no evidence for an atrial septal defect. AORTIC VALVE The aortic valve is normal in structure and function. No aortic regurgitation is present. There is no aortic valvular stenosis. There is no aortic valvular vegetation. MITRAL VALVE The mitral valve is normal in structure and function. There is no evidence of mitral valve prolapse. There is no mitral valve stenosis. There is no mitral valve regurgitation noted. TRICUSPID VALVE The tricuspid valve is normal in structure and function. There is no tricuspid valve regurgitation noted. There is no tricuspid valve prolapse or vegetation. There is no tricuspid valve stenosis. PULMONIC VALVE The pulmonary valve is normal in structure and function. There is no pulmonic valvular regurgitation. There is no pulmonic valvular stenosis. GREAT VESSELS The aortic root is normal in size. The ascending aorta is normal in size. The pulmonary artery is normal. The IVC is normal in size and collapses >50% with inspiration. PERICARDIAL EFFUSION The pericardium appears normal. There is no pleural effusion. <Conclusion> The left ventricular function is normal. The left ventricular ejection fraction is within the normal range. No regional wall motion abnormalities noted.
[2017-09-13] MEDS ORDERED: (Novolog) Insulin Aspart, Recombinant 100 u/ml 10 ml vial SC SCH (16:30)
[2017-09-13] MEDS: (Novolog) Insulin Aspart, Recombinant 100 u/ml 10 ml vial SC SCH ×3 (17:30→21:57)
[2017-09-13] MEDS: Sodium Chloride 0.45% 1,000 ML IV SCH (17:33)
--- NOTE | 2017-09-13 19:06 | CP.PCM.CON ---
History of Present Illness - History of Present Illness History of Present Illness: pt is seen and examined, full consult is dictated #[id number] 1. edmar on ckd sec to dehydration, r/o atn 2. s/p hypoglycemia 3. htn 4. proteinuria, r/o dmn vs htn neprosclerosis, vs ch. gn check hept.b, c, wade,c3,c4, 24 hr up,cr,cr cl, u/s kidneys for size, c/w ivf bmp daily x Past Patient History - Infectious Disease Hx of Infectious Diseases: None - Tetanus Immunizations Tetanus Immunization: Unknown - Past Medical History & Family History Past Medical History?: Yes - Past Social History Smoking Status: Never Smoked - CARDIAC Hx Cardiac Disorders: Yes Hx Congestive Heart Failure: Yes Hx Hypertension: Yes - PULMONARY Hx Respiratory Disorders: No Hx Tuberculosis: No - NEUROLOGICAL Hx Neurological Disorder: Yes HX Cerebrovascular Accident: Yes Hx Dementia: Yes - HEENT Hx HEENT Problems: No - RENAL Hx Chronic Kidney Disease: No Hx Kidney Stones: No - ENDOCRINE/METABOLIC Hx Endocrine Disorders: Yes Hx Diabetes Mellitus Type 1: Yes - HEMATOLOGICAL/ONCOLOGICAL Hx Blood Disorders: Yes Hx Anemia: Yes - INTEGUMENTARY Hx Dermatological Problems: No - MUSCULOSKELETAL/RHEUMATOLOGICAL Hx Musculoskeletal Disorders: Yes Hx Falls: Yes Hx Fractures: Yes (Skull) - GASTROINTESTINAL Hx Gastrointestinal Disorders: Yes HX Swallowing Problems: Yes - GENITOURINARY/GYNECOLOGICAL Hx Genitourinary Disorders: No Hx Sexually Transmitted Disorders: No - PSYCHIATRIC Hx Psychophysiologic Disorder: Yes Hx Anxiety: Yes Hx Bipolar Disorder: Yes Hx Depression: Yes Hx Schizophrenia: Yes Hx Substance Use: No - SURGICAL HISTORY Hx Surgeries: Yes Other/Comment: metal plates in head (skull fx) - ANESTHESIA Hx Anesthesia: Yes Hx Anesthesia Reactions: No Hx Malignant Hyperthermia: No Meds Allergies/Adverse Reactions: Allergies Allergy/AdvReac Type Severity Reaction Status Date / Time No Known Allergies Allergy Verified 06/26/17 03:42 - Medications Medications: Current Medications Aspirin (Ecotrin) 81 mg PO DAILY [facility] Last Admin: 09/13/17 09:52 Dose: 81 mg Clopidogrel Bisulfate (Plavix) 75 mg PO DAILY [facility] Last Admin: 09/13/17 09:52 Dose: 75 mg Divalproex Sodium (Depakote Er) 500 mg PO BID [facility] Last Admin: 09/13/17 17:30 Dose: 500 mg Heparin Sodium (Porcine) (Heparin) 5,000 units SC Q12 [facility] Last Admin: 09/13/17 09:53 Dose: 5,000 units Hydralazine HCl (Apresoline) 50 mg PO TID [facility] Last Admin: 09/13/17 17:30 Dose: 50 mg Sodium Chloride (Sodium Chloride 0.45%) 1,000 mls @ 60 mls/hr IV .[id number] [facility] Last Admin: 09/13/17 17:33 Dose: Not Given Insulin Aspart (Novolog) 0 unit SC ACHS [facility] Last Admin: 09/13/17 17:30 Dose: 2 units Insulin Aspart (Novolog) 6 unit SC AC [facility] Last Admin: 09/13/17 17:31 Dose: 6 units Insulin Glargine (Lantus) 20 unit SC HS [facility] Metoprolol Succinate (Toprol Xl) 100 mg PO DAILY [facility] Last Admin: 09/13/17 09:52 Dose: 100 mg Rosuvastatin Calcium (Crestor) 2.5 mg PO [facility] Results - Vital Signs Recent Vital Signs: Last Vital Signs Temp 98.1 F 09/13/17 16:00 Pulse 81 09/13/17 16:00 Resp 20 09/13/17 16:00 BP 171/85 H 09/13/17 16:00 Pulse Ox 98 09/13/17 16:00 - Labs Result Diagrams: 09/13/17 04:16 09/13/17 04:16 Labs: Laboratory Results - last 24 hr 09/12/17 09/12/17 09/12/17 18:56 18:56 18:56 WBC RBC Hgb Hct MCV MCH MCHC RDW Plt Count MPV Neut % (Auto) Lymph % (Auto) [place] % (Auto) Eos % (Auto) Baso % (Auto) Neut # (Auto) Lymph # (Auto) [place] # (Auto) Eos # (Auto) Baso # (Auto) Sodium 146 Potassium 5.6 H Chloride 107 Carbon Dioxide 28 Anion Gap 17 BUN 53 H Creatinine 2.3 H Est GFR ( Amer) 36 Est GFR (Non-Af Amer) 29 POC Glucose (mg/dL) Random Glucose 47 L Hemoglobin A1c 9.8 H D Calcium 9.4 Phosphorus Magnesium Iron TIBC % Saturation Ferritin Total Bilirubin 0.3 AST 23 ALT 31 Alkaline Phosphatase 66 Troponin I < 0.0120 NT-Pro-B Natriuret Pep 733 Total Protein 6.7 Albumin 3.9 Globulin 2.8 Albumin/Globulin Ratio 1.4 Triglycerides Cholesterol LDL Cholesterol Direct HDL Cholesterol Vitamin B12 Folate TSH 3rd Generation Urine Color Yellow Urine Clarity Hazy Urine pH 5.0 Ur Specific [place] 1.017 Urine Protein 2+ H Urine Glucose (UA) 3+ H Urine Ketones Trace Urine Blood Negative Urine Nitrate Negative Urine Bilirubin Negative Urine Urobilinogen 2.0 Ur Leukocyte Esterase Neg Urine WBC (Auto) 2 Urine RBC (Auto) 3 Ur Squamous Epith Cells 1 Urine Bacteria Occ H Hyaline Casts 6-10 H 09/13/17 09/13/17 09/13/17 02:11 04:16 04:16 WBC 8.0 RBC 3.24 L Hgb 9.7 L Hct 28.4 L MCV 87.8 MCH 30.0 MCHC 34.2 RDW 14.2 Plt Count 211 MPV 8.0 Neut % (Auto) 49.3 L Lymph % (Auto) 39.6 [place] % (Auto) 6.7 Eos % (Auto) 3.7 Baso % (Auto) 0.7 Neut # (Auto) 4.0 Lymph # (Auto) 3.2 [place] # (Auto) 0.5 Eos # (Auto) 0.3 Baso # (Auto) 0.1 Sodium Potassium Chloride Carbon Dioxide Anion Gap BUN Creatinine Est GFR ( Amer) Est GFR (Non-Af Amer) POC Glucose (mg/dL) 80 Random Glucose Hemoglobin A1c Calcium Phosphorus Magnesium Iron 69 TIBC 301 % Saturation 23 Ferritin Total Bilirubin AST ALT Alkaline Phosphatase Troponin I NT-Pro-B Natriuret Pep Total Protein Albumin Globulin Albumin/Globulin Ratio Triglycerides Cholesterol LDL Cholesterol Direct HDL Cholesterol Vitamin B12 Folate TSH 3rd Generation Urine Color Urine Clarity Urine pH Ur Specific [place] Urine Protein Urine Glucose (UA) Urine Ketones Urine Blood Urine Nitrate Urine Bilirubin Urine Urobilinogen Ur Leukocyte Esterase Urine WBC (Auto) Urine RBC (Auto) Ur Squamous Epith Cells Urine Bacteria Hyaline Casts 09/13/17 09/13/17 09/13/17 04:16 04:16 04:16 WBC RBC Hgb Hct MCV MCH MCHC RDW Plt Count MPV Neut % (Auto) Lymph % (Auto) [place] % (Auto) Eos % (Auto) Baso % (Auto) Neut # (Auto) Lymph # (Auto) [place] # (Auto) Eos # (Auto) Baso # (Auto) Sodium 142 Potassium 5.2 Chloride 108 H Carbon Dioxide 27 Anion Gap 12 BUN 47 H Creatinine 1.8 H Est GFR ( Amer) 47 Est GFR (Non-Af Amer) 39 POC Glucose (mg/dL) Random Glucose 152 H Hemoglobin A1c 9.9 H Calcium 8.8 Phosphorus 3.9 Magnesium 2.4 H Iron TIBC % Saturation 23 Ferritin 58.2 Total Bilirubin 0.5 AST 20 ALT 29 Alkaline Phosphatase 62 Troponin I < 0.0120 NT-Pro-B Natriuret Pep Total Protein 5.7 L Albumin 3.5 Globulin 2.2 Albumin/Globulin Ratio 1.6 Triglycerides 244 H Cholesterol 186 LDL Cholesterol Direct 92 HDL Cholesterol 49 Vitamin B12 664 Folate 11.3 TSH 3rd Generation 1.00 Urine Color Urine Clarity Urine pH Ur Specific [place] Urine Protein Urine Glucose (UA) Urine Ketones Urine Blood Urine Nitrate Urine Bilirubin Urine Urobilinogen Ur Leukocyte Esterase Urine WBC (Auto) Urine RBC (Auto) Ur Squamous Epith Cells Urine Bacteria Hyaline Casts 09/13/17 09/13/17 09/13/17 06:44 06:49 11:28 WBC RBC Hgb Hct MCV MCH MCHC RDW Plt Count MPV Neut % (Auto) Lymph % (Auto) [place] % (Auto) Eos % (Auto) Baso % (Auto) Neut # (Auto) Lymph # (Auto) [place] # (Auto) Eos # (Auto) Baso # (Auto) Sodium Potassium Chloride Carbon Dioxide Anion Gap BUN Creatinine Est GFR ( Amer) Est GFR (Non-Af Amer) POC Glucose (mg/dL) 336 H 354 H Random Glucose Hemoglobin A1c Calcium Phosphorus Magnesium Iron TIBC % Saturation Ferritin Total Bilirubin AST ALT Alkaline Phosphatase Troponin I NT-Pro-B Natriuret Pep Total Protein Albumin Globulin Albumin/Globulin Ratio Triglycerides Cholesterol LDL Cholesterol Direct HDL Cholesterol Vitamin B12 Folate TSH 3rd Generation Urine Color Yellow Urine Clarity Clear Urine pH 5.0 Ur Specific [place] 1.018 Urine Protein 1+ H Urine Glucose (UA) Normal Urine Ketones Negative Urine Blood Negative Urine Nitrate Negative Urine Bilirubin Negative Urine Urobilinogen Normal Ur Leukocyte Esterase Neg Urine WBC (Auto) 2 Urine RBC (Auto) 1 Ur Squamous Epith Cells < 1 Urine Bacteria Hyaline Casts 0-2 09/13/17 09/13/17 14:06 15:52 WBC RBC Hgb Hct MCV MCH MCHC RDW Plt Count MPV Neut % (Auto) Lymph % (Auto) [place] % (Auto) Eos % (Auto) Baso % (Auto) Neut # (Auto) Lymph # (Auto) [place] # (Auto) Eos # (Auto) Baso # (Auto) Sodium Potassium Chloride Carbon Dioxide Anion Gap BUN Creatinine Est GFR ( Amer) Est GFR (Non-Af Amer) POC Glucose (mg/dL) 326 H Random Glucose Hemoglobin A1c Calcium Phosphorus Magnesium Iron TIBC % Saturation Ferritin Total Bilirubin AST ALT Alkaline Phosphatase Troponin I < 0.0120 NT-Pro-B Natriuret Pep Total Protein Albumin Globulin Albumin/Globulin Ratio Triglycerides Cholesterol LDL Cholesterol Direct HDL Cholesterol Vitamin B12 Folate TSH 3rd Generation Urine Color Urine Clarity Urine pH Ur Specific [place] Urine Protein Urine Glucose (UA) Urine Ketones Urine Blood Urine Nitrate Urine Bilirubin Urine Urobilinogen Ur Leukocyte Esterase Urine WBC (Auto) Urine RBC (Auto) Ur Squamous Epith Cells Urine Bacteria Hyaline Casts
[2017-09-13] MEDS: Rosuvastatin Calcium 2.5 mg Tab PO SCH (21:56)
[2017-09-13] MEDS ORDERED: (Lantus) Insulin Glargine, Recombinant SC SCH (22:00)
--- NOTE | 2017-09-13 22:16 | CON ---
DATE: 09/13/2017 ENDOCRINOLOGY CONSULTATION LOCATION: Room 352. HISTORY OF PRESENT ILLNESS: This is a 56-year-old male with known history of type 2 insulin-requiring diabetes, now admitted with precordial chest pain and is being referred now for diabetic evaluation because of supervening hyperglycemic accelerations as noted thereof. PAST MEDICAL HISTORY: As mentioned above, history of type 2 insulin-requiring diabetes, on a basal insulin given as Levemir at 10 units subcu twice a day with Humalog sliding scale as given. History of hypertension and dyslipidemia, history of diabetic retinopathy, polyneuropathy and nephropathy. He also has significant history of coronary artery disease and previous admissions for congestive heart failure. History of generalized anxiety and depression with underlying schizophrenia/bipolar disorder. There is also significant history of early dementia as noted. History of diffuse osteoarthritis and a prior skull fracture from head injury. History of chronic anemia. FAMILY HISTORY: Positive for diabetes and hypertension. SOCIAL HISTORY: The patient has supportive family. Has previous history of smoking as noted. REVIEW OF SYSTEMS: As per the family, he has been noted to have increasing bouts of dizziness and lightheadedness with generalized body weakness and hypersomnolence and lethargy. He also admits to precordial chest pain with episodic shortness of breath especially on exertion. His oral intake has been variable with nausea, dyspepsia and vague upper abdominal pain. PHYSICAL EXAMINATION: GENERAL: This is an average built male in no apparent distress. VITAL SIGNS: With a blood pressure of 160/90, pulse of 70 beats per minute and regular, temperature 98, respirations 20. Height is 5 feet 4 inches. Weight is 145 pounds. HEENT: Head is normocephalic. Eyes are anicteric with pink conjunctivae. Funduscopy not possible at this time. Ears, nose, and throat otherwise normal. NECK: Supple. Thyroid gland is normal in size. No carotid bruits or cervical adenopathy. CARDIOPULMONARY: Some adynamic precordium. S1 and S2 are rapid and regular. LUNGS: Clear to auscultation. ABDOMEN: Flat, soft with positive bowel sounds. EXTREMITIES: No peripheral edema. Pulses are +2 bilaterally. LABORATORY DATA: His chemistries showed a BUN of 47, sodium 142, potassium 5.2, chloride 108, CO2 of 27, glucose is 152, and creatinine is 1.8. His glucose levels today are fluctuating and ranging from 336 to 354 mg/dL. His hemoglobin A1c is 9.9%, which is elevated and indicative of suboptimal metabolic control of his diabetic condition even prior to this admission. ASSESSMENT: This is a 56-year-old male with uncontrolled and decompensated type 2 insulin-requiring diabetes, presenting here with precordial chest pain and currently undergoing cardiac workup for acute coronary syndrome and is being referred now for diabetic evaluation and management. He also has diabetic microvascular complications of retinopathy, polyneuropathy and nephropathy with diabetic macrovascular complications of coronary artery disease and peripheral arterial disease and vasculopathy. However with a variability of his oral intake, he presented here with symptomatic hypoglycemia as noted, but with improved oral intake has supervening hyperglycemic accelerations as noted today. PLAN OF MANAGEMENT: As discussed with the staff, we will modify his current insulin regimen to a more physiologic basal and bolus insulin drug combination. We will start him with NovoLog given at 6 units subcu t.i.d. before meals to start at dinner time today as ordered. We will also start him with basal insulin with Lantus given as 20 units subcu at bedtime daily to start tonight. We will modify coverage scale using NovoLog insulin as rapid-acting insulin analog to obviate hypoglycemia and detailed orders have been given. We will obtain serial chemistry and supplement accordingly as needed. We will follow with you. Brook Hernandez MD
[2017-09-13 22:56] LABS: COMPLEMENT C4 22.9 mg/dL (14.0-44.0)
--- NOTE | 2017-09-13 22:59 | HP ---
CHIEF COMPLAINT: Left-sided chest pain, which started yesterday afternoon, lasted for five minutes. HISTORY OF PRESENT ILLNESS: Mr. Hill is a 56-year-old male with past medical history of diabetes mellitus, poorly controlled; coronary artery disease; CHF; status post ND in the past; hypertension; schizophrenia; bipolar disorder, status post voluntary inpatient psych admission to [facility] recently; history of seizures who has been following up with PMD prior admissions for DKA and anemia of chronic disease, came into the ED with complaints of left-sided chest pain, which started yesterday afternoon while he was at home at rest, pain was squeezing in nature, 5/10 lasted for five minutes. It was all after he came to the emergency room. As per him, the chest pain is not associated with any dizziness, diaphoresis, nausea, vomiting, or shortness of breath. When I examined the patient this morning, the patient denies any headache, dizziness. Denies any chest pain, shortness of breath, or wheezing. Denies any nausea, vomiting, abdominal pain, diarrhea, or constipation. Denies any urinary complaints. Denies any neurologic symptoms. All the history obtained from the patient via a Cuban-speaking senior marketing coordinator. PAST MEDICAL HISTORY: As described, hypertension, diabetes mellitus, CAD, CHF, bipolar disorder, uncontrolled diabetes mellitus. PAST SURGICAL HISTORY: Denies any past surgical history. FAMILY HISTORY: Denies any family history of coronary artery disease. PERSONAL HISTORY: He is , having one son, living with his . SOCIAL HISTORY: He denies any alcohol use. Smokes five cigarettes per day for many years. Denies any drug abuse. ALLERGIES: NO KNOWN DRUG ALLERGIES. HOME MEDICATIONS: Include Ambien 10 mg p.o. at bedtime, hydralazine 50 mg p.o. t.i.d., insulin 10 units subcu every 12 hours, Haldol 2 mg p.o. b.i.d., lispro as per his sugars, aspirin 81 mg daily, Plavix 75 mg daily, Depakote 500 mg p.o. b.i.d., lisinopril 20 mg p.o. daily, metoprolol 100 mg daily, Pravachol 20 mg p.o. at bedtime, Ativan 1 mg as needed. REVIEW OF SYSTEMS: As described in history of present illness. All other systems reviewed and were found to be negative. PHYSICAL EXAMINATION: GENERAL: A middle-aged male, lying in bed, in no acute distress. VITAL SIGNS: Blood pressure 152/83, pulse 66, respirations 20, temperature 97.8 degrees Fahrenheit, O2 saturation 99% on room air. HEENT: Pupils are equal, round, and reacting to light and accommodation. Extraocular muscles intact. No icterus. No pallor. No oral thrush. No pharyngeal congestion. NECK: Supple. No JVD. LUNGS: Bilateral vesicular breath sounds. No wheezing. No rhonchi. CVS: S1 and S2 present, regular. ABDOMEN: Soft, nontender. Bowel sounds present. No guarding. No rigidity. No rebound tenderness noted. MEDIA DEVELOPER: Alert, awake, oriented x3. No focal deficits noted. EXTREMITIES: No edema. Palpable peripheral pulses, but he claims he uses a walker to ambulate around for the past few years. LABORATORIES DONE FROM THE ED: Chest x-ray, no active disease, no acute significant interval change. EKG done in the ED shows normal sinus rhythm at 69 beats per minute, no acute ST-T changes noted. Review of his old records show he underwent a Myoview scan in 10/2016 consistent with small size mild intensity apical defect, mild LV systolic dysfunction. Echocardiogram done in 10/2016 shows EF is 50%, mild septal hypokinesis noted. EEG done in 06/2014, normal activity. Labs done from ED: WBC 8.8, hemoglobin 10.5, hematocrit 31.1, platelets 253. Sodium 146, potassium 5.6, chloride 107, bicarb 28, BUN 53, creatinine 2.3, glucose 47. Hemoglobin A1c 9.8. Calcium 9.4. Total bilirubin 0.3, AST 23, ALT 31, alkaline phosphatase 66. Cardiac enzymes x1 negative. ProBNP 733. Total protein 6.7, albumin 3.9. UA: Specific gravity 1.017, pH of 5, protein 2+, glucose 3+. ASSESSMENT AND PLAN: A middle-aged male with history of diabetes mellitus, hypertension, hyperlipidemia, coronary artery disease, status post myocardial infarction, congestive heart failure and bipolar disorder, came into the emergency department with complaints of left-sided chest pain. The patient is being admitted for further management, and he was also found to have elevated blood urea nitrogen and creatinine and elevated potassium and low glucose levels. 1. Chest pain in a patient with multiple risk factors and prior history of myocardial infarction, rule out acute coronary syndrome. 2. Hyperkalemia. 3. Acute kidney injury on chronic kidney disease. 4. Hypoglycemia. 5. Uncontrolled diabetes mellitus. 6. Anemia of chronic disease. 7. Coronary artery disease, congestive heart failure. 8. History of bipolar disorder and schizophrenia. 9. History of hyperlipidemia. PLAN: The patient is being admitted to cardiac telemetry. We will do serial cardiac enzymes, serial EKGs. We will check echocardiogram. We will obtain cardiology consult with Dr. Brown. Continue with aspirin 81 mg daily, Plavix 75 mg daily, metoprolol 100 mg p.o. daily, and hydralazine 50 mg p.o. t.i.d. We will hold lisinopril as his creatinine is elevated. We will adjust his blood pressure medications as needed. Continue with his psychiatric medications. We will obtain renal consult. The patient received one dose of Kayexalate. We will monitor potassium closely. We will add further recommendations as his clinical course progresses. Francia Galan MD
[2017-09-13 23:21] LABS: HEPATITIS B SURFACE AG Negative (NEGATIVE)
[2017-09-13 23:27] LABS: HEPATITIS A IGM NEGATIVE (NEGATIVE); HEPATITIS B CORE AB NEGATIVE (NEGATIVE)
[2017-09-13 23:39] LABS: HEPATITIS C ANTIBODY NEGATIVE (NEGATIVE)
--- NOTE | 2017-09-14 01:08 | CON ---
DATE: 09/13/2017 CARDIOLOGY CONSULTATION REASON FOR CONSULTATION: Chest pain. NOTE: The history was relied upon from the emergency room notes as the patient himself denies having chest pain and he says he does not know why he came to the hospital. HISTORY OF PRESENT ILLNESS: The patient is a 56-year-old male who has a history of poorly-controlled schizophrenia and bipolar disorder, has a history of hypertension, has a history of diabetes mellitus, chronic renal insufficiency, presented because of chest pain. At this time, the patient denies any chest pain and denies any prior history of heart attack in the past. SOCIAL HISTORY: The patient is nonsmoker, nondrinker. REVIEW OF SYSTEMS: The patient uses a walker because of his imbalance. PHYSICAL EXAMINATION: GENERAL: The patient is a middle-aged male who does not appear to be in acute distress. VITAL SIGNS: Blood pressure 152/83, heart rate 66, temperature 97.8, respirations 20. HEENT: Normocephalic. CHEST: Clear. HEART: S1, S2 regular. ABDOMEN: Soft. EXTREMITIES: No edema. LABORATORY DATA: SMA-7; sodium 142, potassium 5.2, chloride 108, CO2 of 27, glucose 152, BUN 47, creatinine 1.8. Today's hemoglobin and hematocrit 9.7 and 28.4. White count and platelet count are within normal limits. Two sets of troponins were negative. IMAGING STUDIES: Chest x-ray was unremarkable. Head CT scan done in June of this year revealed no acute intracranial pathology. Lexiscan performed in October of last year revealed small-sized mild intensity apical defect with mild LV systolic function and recommendation was invasive evaluation only if the patient has clinical signs and symptoms of ischemia. EKG revealed normal sinus rhythm at rate of 69. ASSESSMENT: 1. Chest pain, myocardial infarction is ruled out. 2. Chronic renal insufficiency. 3. Bipolar disorder and schizophrenia. 4. Uncontrolled diabetes mellitus. The patient's most recent hemoglobin A1c is 9.8. RECOMMENDATIONS: Continue current hydralazine 50 mg t.i.d., Crestor 2.5 mg once daily, Depakote 500 mg once a day, aspirin 81 mg once a day, Plavix 75 mg once a day, and Toprol-XL 100 mg once a day. Obtain serum D-dimer. I will review the echocardiography study performed today. Mohit Brown MD [facility] # [id number]
[2017-09-14] MEDS: (Novolog) Insulin Aspart, Recombinant 100 u/ml 10 ml vial SC SCH ×7 (07:46→21:32)
[2017-09-14] MEDS: Sodium Chloride 0.45% 1,000 ML IV SCH ×2 (09:49→17:42)
[2017-09-14] MEDS: Divalproex 500 mg ER Tab PO SCH ×2 (09:58→17:24)
[2017-09-14] MEDS: Metoprolol Succinate 100 mg XL Tab PO SCH (09:58)
--- NOTE | 2017-09-14 10:19 | CON ---
DATE: 09/13/2017 LOCATION: The patient is located in room 352, bed A. RENAL CONSULT IS REQUESTED BY: Dr. Francia Galan. REASON FOR CONSULTATION: Acute renal failure, chronic kidney disease, and proteinuria. HISTORY OF PRESENT ILLNESS: Mr. Hill is a 56 years old middle-aged male with a past medical history significant for diabetes for about 30 years, hypertension for 10 years, bipolar, schizophrenia, questionable compliance with medication, and uncontrolled diabetes with hemoglobin A1c 9.8. The patient was admitted through the emergency room with chief complaints of chest pain and with multiple admissions to [facility] with a baseline creatinine about 1.3-1.7, was found to be hypoglycemic on admission and confusion with a blood sugar about 47 and creatinine 2.3 and potassium 5.6. Now, the patient is alert, awake, and following commands appropriately. Denies any chest pain at this time. Denies any nausea, vomiting, diarrhea. Denies any fever or cough. No abdominal pain. No urinary symptoms. No edema of the legs. PAST MEDICAL HISTORY: Significant for diabetes for 30 years, hypertension for 10 years, hyperlipidemia, chronic kidney disease, schizophrenia, and bipolar. PAST SURGICAL HISTORY: Denies any surgeries. ALLERGIES: NO KNOWN DRUG ALLERGIES. SOCIAL HISTORY: The patient is a smoker. Denies alcohol. Denies any drug abuse. PERSONAL HISTORY: He is , and he has one child. FAMILY HISTORY: Not significant. CURRENT MEDICATIONS: Include as follows; hydralazine 50 mg p.o. t.i.d., Crestor 2.5 mg at bedtime, Depakote 500 mg p.o. b.i.d., aspirin 81 mg daily, subcu heparin 5000 every 12 hours, Lantus 20 units subcu at bedtime, NovoLog for sliding scale and also 6 units subcu before meals, Plavix 75 mg daily, IV fluids half-normal saline at 60 mL/hour, metoprolol succinate 100 mg p.o. daily. REVIEW OF SYSTEMS: Significant for chest discomfort and confusion and hypoglycemia. All other review of systems are reviewed and negative. PHYSICAL EXAMINATION: VITAL SIGNS: As follows: Blood pressure 171/85, pulse 81, respirations 20, temperature 98.1, saturation 98%. Height 5 feet 4 inches and weight is 145 pounds. GENERAL: Mr. Hill is a 56-year-old middle-aged male, looks much older than his age, thin-built, not in distress. HEENT: Pupils normal, reactive to light and accommodation. Conjunctivae pink. Sclerae anicteric. Tongue is moist, and trachea is midline. LUNGS: Symmetric on both sides. Bilateral breath sounds present. Clear to auscultation. CVS: [place] at the fifth intercostal space and midclavicular line, half inch middle to. S1, S2 audible. No murmur or gallop. ABDOMEN: Normal in appearance. Soft, tympanic. No guarding. No rigidity. No hepatosplenomegaly. LIDAR SCIENTIST: The patient is alert, awake, and oriented x2 to x3. Sensory and motor system is grossly within normal limits. Cranial nerves II through XII grossly intact. EXTREMITIES: No cyanosis, no clubbing, no edema. LABORATORY DATA: Include as follows; as of 09/12/2017, WBC 8.8, hemoglobin 10.5, hematocrit is 31.1, platelets 253. Sodium 146, potassium 5.6, chloride 107, CO2 of 28, BUN 53, creatinine 2.3, glucose 47, hemoglobin A1c 9.8, calcium 9.4. Total bili 0.3, AST 23, ALT 31, alkaline phosphatase 66, and troponin 0.012. ProBNP 733, total protein 6.7, albumin is 3.9. Urinalysis, yellow, hazy, pH of 5, specific gravity 1.017, protein 2+, glucose 3+, ketones trace, blood negative, nitrites negative, bilirubin negative, urobilinogen 0.2, leukocyte esterase negative, wbc 2, rbc 3, bacteria occasional, hyaline casts 6-10. OTHER LABORATORY DATA: As of 09/13/2017, WBC 8, hemoglobin 9.7, hematocrit is 28.4, platelets 211. Sodium 142, potassium 5.2, chloride 108, CO2 of 27, BUN 47, creatinine 1.8, glucose 152. Hemoglobin is 9.9, calcium 8.8, phosphorus 3.9, magnesium 2.4, iron 69, TIBC 301, ferritin 58.2, and saturation 23%. Total bili 0.5, AST 20, ALT 29, alkaline phosphatase 62, troponin 0.012, 0.012, 0.012. Total protein 5.7, albumin 3.5. Cholesterol 186, triglycerides 244, HDL is 92, vitamin B12 is 664, folic acid 11.3, TSH is 1.0. Chest x-ray, no active disease. No acute or significant interval change, and no significant interval change compared to the prior examinations. ASSESSMENT: In summary, Mr. Hill is a 56-year-old middle-aged male with a history of longstanding diabetes, hypertension, hyperlipidemia, chronic kidney disease with a baseline creatinine of 1.3 to 1.7, who was admitted with questionable chest discomfort, confusion, and hypoglycemia. The patient does not know why he is in the hospital, and the patient was found to have hypoglycemia, blood sugar 47. 1. Acute renal failure on chronic kidney disease, most likely secondary to intravascular depletion and dehydration. 2. Hypoglycemia. 3. Hypertension. 4. Proteinuria, rule out diabetic nephropathy versus hypertensive nephrosclerosis, cannot rule out underlying chronic glomerulonephritis. PLAN: Continue his current blood pressure medications, hydralazine and metoprolol; and also, we will check hepatitis B and C serology; WENDY; and compliment level C3, C4; and 24 urine, protein, creatinine; creatinine clearance; and ultrasound of the kidneys for size, and also we will check stool for occult blood. We will follow with you. Thank you for allowing me to participate in your patient's care. Jenna Galan MD
--- NOTE | 2017-09-14 10:19 | CP.PCM.PN ---
Subjective - Date & Time of Evaluation Date of Evaluation: 09/14/17 Time of Evaluation: 10:20 - Subjective Subjective: Progress note dictated #[id number] Objective - Vital Signs/Intake and Output Vital Signs (last 24 hours): Temp Pulse Resp BP Pulse Ox 98.5 F 69 20 170/83 H 98 09/14/17 08:00 09/14/17 08:00 09/14/17 08:00 09/14/17 08:00 09/14/17 08:00 Intake and Output: 09/14/17 09/14/17 06:59 18:59 Intake Total 750 300 Output Total 570 Balance 750 -270 - Medications Medications: Current Medications Aspirin (Ecotrin) 81 mg PO DAILY [facility] Last Admin: 09/14/17 09:58 Dose: 81 mg Clopidogrel Bisulfate (Plavix) 75 mg PO DAILY [facility] Last Admin: 09/14/17 09:58 Dose: 75 mg Divalproex Sodium (Depakote Er) 500 mg PO BID [facility] Last Admin: 09/14/17 09:58 Dose: 500 mg Heparin Sodium (Porcine) (Heparin) 5,000 units SC Q12 [facility] Last Admin: 09/14/17 09:58 Dose: 5,000 units Hydralazine HCl (Apresoline) 50 mg PO TID [facility] Last Admin: 09/14/17 09:58 Dose: 50 mg Sodium Chloride (Sodium Chloride 0.45%) 1,000 mls @ 60 mls/hr IV .[id number] [facility] Last Admin: 09/14/17 09:49 Dose: Not Given Insulin Aspart (Novolog) 0 unit SC ACHS [facility] Last Admin: 09/14/17 07:46 Dose: Not Given Insulin Aspart (Novolog) 6 unit SC AC [facility] Last Admin: 09/14/17 08:04 Dose: 6 units Insulin Glargine (Lantus) 20 unit SC HS [facility] Last Admin: 09/13/17 21:57 Dose: 20 units Metoprolol Succinate (Toprol Xl) 100 mg PO DAILY [facility] Last Admin: 09/14/17 09:58 Dose: 100 mg Rosuvastatin Calcium (Crestor) 2.5 mg PO HS [facility] Last Admin: 09/13/17 21:56 Dose: 2.5 mg - Labs Labs: 09/13/17 04:16 09/13/17 04:16
--- NOTE | 2017-09-14 11:17 | US ---
Date of service: 09/13/2017 PROCEDURE: Ultrasound of the Kidneys HISTORY: edmar, htn, dm for kidney sizw COMPARISON: None available. TECHNIQUE: Sonogram of the kidneys. FINDINGS: RIGHT KIDNEY: Measures: 11.2 x 4.4 x 4.6 cm. Increased cortical echogenicity Normal in size and contour. No stone, solid mass lesion or hydronephrosis visualized. LEFT KIDNEY: Measures: 10.1 x 5.8 x 5.0 cm. Increased cortical echogenicity Normal in size and contour. No stone, solid mass lesion or hydronephrosis visualized. OTHER FINDINGS: None. IMPRESSION: Bilateral echogenic kidneys compatible with medical renal disease.
[2017-09-14 11:33] LABS: BASO % 0.7 % (0.0-2.0); EOS # 0.2 K/uL (0.0-0.7); EOS % 2.8 % (0.0-4.0); HEMOGLOBIN 10.8 g/dL (12.0-18.0); LYMPH # 2.4 K/uL (1.0-4.3); LYMPH % 33.4 % (20.0-40.0); MEAN CELL VOLUME 88.4 fL (80.0-94.0); MEAN PLATELET VOLUME 8.7 fL (7.2-11.7); MONO # 0.4 K/uL (0.0-0.8); MONO % 6.2 % (0.0-10.0); NEUT % 56.9 % (50.0-75.0); RBC 3.6 Mil/uL (4.40-5.90); RED CELL DISTRIBUTION WIDTH 14.4 % (11.5-14.5); WHITE BLOOD COUNT 7.1 K/uL (4.8-10.8)
[2017-09-14 11:49] LABS: ALB/GLOB RATIO 1.6 (1.0-2.1); ALBUMIN 3.9 g/dL (3.5-5.0); ALT/SGPT 18 U/L (21-72); AST/SGOT 24 U/L (17-59); BLOOD UREA NITROGEN 30 mg/dL (9-20); CALCIUM 9.2 mg/dl (8.6-10.4); GFR AFRICAN-AMERICAN > 60; GFR NON-AFRICAN AMERICAN 57
--- NOTE | 2017-09-14 12:20 | CARD ---
APPROVED REPORT Date of service: 09/12/2017 EKG Measurement Heart [id number] CT [id number] <Conclusion> Normal sinus rhythm Normal ECG
[2017-09-14 16:07] VITALS: PULSE 76
--- NOTE | 2017-09-14 17:53 | CP.PCM.PN ---
Subjective - Date & Time of Evaluation Date of Evaluation: 09/14/17 Time of Evaluation: 17:53 - Subjective Subjective: pt is seen and examined, follow up consult is dictated #[id number] c/w ivf f/u labs Objective - Vital Signs/Intake and Output Vital Signs (last 24 hours): Temp Pulse Resp BP Pulse Ox 98.2 F 76 20 137/72 99 09/14/17 16:00 09/14/17 16:00 09/14/17 16:00 09/14/17 16:00 09/14/17 16:00 Intake and Output: 09/14/17 09/14/17 06:59 18:59 Intake Total 750 300 Output Total 570 Balance 750 -270 - Medications Medications: Current Medications Aspirin (Ecotrin) 81 mg PO DAILY [facility] Last Admin: 09/14/17 09:58 Dose: 81 mg Clopidogrel Bisulfate (Plavix) 75 mg PO DAILY [facility] Last Admin: 09/14/17 09:58 Dose: 75 mg Divalproex Sodium (Depakote Er) 500 mg PO BID [facility] Last Admin: 09/14/17 17:24 Dose: 500 mg Heparin Sodium (Porcine) (Heparin) 5,000 units SC Q12 [facility] Last Admin: 09/14/17 09:58 Dose: 5,000 units Hydralazine HCl (Apresoline) 50 mg PO TID [facility] Last Admin: 09/14/17 17:24 Dose: 50 mg Sodium Chloride (Sodium Chloride 0.45%) 1,000 mls @ 60 mls/hr IV .[id number] [facility] Last Admin: 09/14/17 17:42 Dose: 60 mls/hr Insulin Aspart (Novolog) 0 unit SC ACHS [facility] Last Admin: 09/14/17 16:49 Dose: Not Given Insulin Aspart (Novolog) 6 unit SC AC [facility] Last Admin: 09/14/17 17:24 Dose: 6 units Insulin Glargine (Lantus) 16 unit SC HS [facility] Metoprolol Succinate (Toprol Xl) 100 mg PO DAILY [facility] Last Admin: 09/14/17 09:58 Dose: 100 mg Rosuvastatin Calcium (Crestor) 2.5 mg PO HS [facility] Last Admin: 09/13/17 21:56 Dose: 2.5 mg - Labs Labs: 09/14/17 11:21 09/14/17 11:21
--- NOTE | 2017-09-14 20:53 | PN ---
DATE: 09/14/2017 ENDO FOLLOWUP NOTE LOCATION: In room #352. SUBJECTIVE: This is a 56-year-old male with recent uncontrolled type 2 insulin-requiring diabetes presenting here with generalized body weakness and supervening marked hyperglycemic accelerations and interspersed with occasional hypoglycemic episodes because of the variability of his oral intake and is now being followed closely for metabolic management. His glucose levels today have improved overnight and have ranged from 92 to 182 mg/dL. It was 185 at bedtime last night. The chemistry showed a BUN of 30, sodium 139, potassium 4.7, chloride 105, CO2 25, glucose 168, and creatinine 1.3. His hemoglobin A1c is 9.9%, which is elevated and indicative of suboptimal metabolic control of his diabetic condition. His thyroid study showed a TSH of 1. ASSESSMENT: This is a 56-year-old male with uncontrolled and decompensated type 2 insulin-requiring diabetes presenting here with extremes of glycemic fluctuations from hypoglycemia to hyperglycemic accelerations with a variability of his oral intake as noted thereof. He also has diabetic microvascular complications of retinopathy, polyneuropathy, and nephropathy with diabetic macrovascular complications of coronary artery disease and peripheral arterial disease and vasculopathy. PLAN OF MANAGEMENT: As discussed with the staff, as the patient has underlying dementia with chronic schizoaffective disorder, we will modify his current insulin regimen to a much lower dosing to optimize metabolic control and also to prevent extremes of glycemic fluctuations. We will continue to modify Novolog given at a lower dose of 6 units subcu t.i.d. before meals as ordered. We will lower the Lantus given as basal insulin at 16 units subcu at bedtime daily to start tonight. We will titrate incrementally as indicated to optimize metabolic control. We will also continue the low dose correction scale using Novolog insulin as given to obviate hypoglycemia. Detailed orders have been given. We will titrate incrementally as indicated to optimize metabolic control. We will follow with you. Brook Hernandez MD
--- NOTE | 2017-09-14 21:14 | PN ---
DATE: 09/14/2017 SUBJECTIVE: The patient denies any chest pain or shortness of breath. OBJECTIVE: VITAL SIGNS: Blood pressure 170/83, heart rate 69, temperature 98.6, and respiration 20. HEENT: Pale conjunctivae. CHEST: Clear. HEART: S1 and S2 regular. EXTREMITIES: Show no edema. LABORATORY DATA: Today's SMA-7 is within normal limits except for glucose of 168 and BUN of 30. Hemoglobin and hematocrit 10.8 and 31.8. Renal ultrasound revealed bilateral echogenic kidneys compatible with medical renal disease. Echocardiogram revealed normal left ventricular systolic function, normal ejection fraction, and no regional wall motion abnormality. ASSESSMENT: 1. Improved renal insufficiency. 2. Chest pain, myocardial infarction is ruled out. 3. Bipolar disorder. 4. Uncontrolled diabetes mellitus. RECOMMENDATIONS: Continue current conservative medical approach. Continue hydralazine 50 mg t.i.d., Crestor 2.5 mg once a day, aspirin 81 mg once a day, Depakote 500 mg twice a day, subcutaneous heparin 5000 units every 12 hours, Plavix 75 mg once a day, Toprol-XL mg once a day, and half-normal saline at 40 mL per hour. Mohit Brown MD
[2017-09-14] MEDS: Rosuvastatin Calcium 2.5 mg Tab PO SCH (21:31)
[2017-09-14] MEDS ORDERED: (Lantus) Insulin Glargine, Recombinant SC SCH (22:00)
--- NOTE | 2017-09-14 22:27 | PN ---
DATE: 09/14/2017 SUBJECTIVE: The patient was seen and examined at bedside. The patient is feeling much better. Denies any headache, dizziness. Denies any chest pain, shortness of breath or wheezing. Denies any urinary complaints. All other systems reviewed and were found to be negative. PHYSICAL EXAMINATION: GENERAL: A middle-aged male, sitting in chair, in no acute distress. VITAL SIGNS: Blood pressure 156/78, pulse 77, respirations 20, temperature 98.1 degrees Fahrenheit, O2 sat is 98% on room air. HEENT: Pupils equal, round and reacting to light and accommodation. Extraocular muscles intact. No icterus. No pallor. No oral thrush. No pharyngeal congestion. NECK: Supple. No JVD. LUNGS: Bilateral vesicular breath sounds. No wheezing. No rhonchi. CVS: S1 and S2 present, regular. ABDOMEN: Soft, nontender. Bowel sounds present. No guarding. No rigidity. No rebound tenderness noted. GOLF COURSE KEEPER: Alert, awake, and oriented x3. No focal deficits noted. EXTREMITIES: No edema. MEDICATIONS: Include aspirin 81 mg daily, Plavix 75 mg daily, Depakote 500 mg p.o. b.i.d., subcu heparin 5000 units every 12 hours, hydralazine 50 mg p.o. t.i.d., NovoLog 6 units subcu with each meal, Lantus 16 units subcu at bedtime, metoprolol 100 mg daily, Crestor 2.5 mg p.o. at bedtime, half normal saline at 60 mL/hour. LABORATORY DATA: Labs from this morning: WBC 7.1, hemoglobin 10.8, hematocrit 31.8, platelets 242. Sodium 139, potassium 4.7, chloride 105, bicarb 25, BUN 30, creatinine 1.3, glucose 182, calcium 9.2. Total bilirubin 0.6, AST 24, ALT 18, alkaline phosphatase 74. Hepatitis serology negative. A 24-hour urine collection is under . ASSESSMENT AND PLAN: Middle-aged male with history of uncontrolled diabetes mellitus, bipolar disorder, schizophrenia, coronary artery disease, status post myocardial infarction, congestive heart failure, hypertension, hyperlipidemia. Admitted for chest pain. Myocardial infarction is ruled out with negative cardiac enzymes and no new EKG changes. Echo with normal ejection fraction. Hyperkalemia resolved. Renal function improving, back to his baseline. Status post hypoglycemia. His insulin dose is being adjusted. The patient's blood pressure is slightly high. His blood pressure medications are adjusted. We will follow a 24-hour urine result. Cardiology, renal and endocrinology consults appreciated. We will continue with current management. We will add further recommendations as his clinical courses progresses. If he is hemodynamically stable and cleared by all the consultants, we will plan discharging the patient home in a.m. Francia Galan MD
[2017-09-14 23:23] LABS: U CREAT 24HOUR URINE 823.7 mg/24hr (800-2800); URINE CREATININE 85.8 mg/dL; URINE CREATININE 86.7 mg/dL
--- NOTE | 2017-09-15 01:44 | PN ---
DATE: 09/14/2017 FOLLOWUP RENAL CONSULTATION LOCATION: The patient is located in room 352, bed A. REQUESTED BY: Francia Galan MD REASON FOR FOLLOWUP: Acute renal failure and chronic kidney disease for further evaluation. SUBJECTIVE: Mr. Hill is a 56-year-old middle-aged male with a past medical history significant for longstanding hypertension, diabetes, anxiety, bipolar disorder, CAD, CHF, chronic kidney disease, schizophrenia, bipolar questionable who was admitted with chest discomfort and confusion. The patient was found to have hypoglycemia on admission, blood sugar 47 with a baseline creatinine 1.3 to 1.7. Now, the patient is out of bed to chair. Denies any chest pain or palpitation. Denies any fever or cough. No abdominal pain. No nausea, vomiting, or diarrhea. The patient is receiving IV fluids. The patient claims he has a good urine output. PHYSICAL EXAMINATION: VITAL SIGNS: As follows. Blood pressure 171/85, pulse 81, respirations 20, temperature 98.1, saturation 98%. Height 5 feet 4 inches. Weight is 145 pounds. GENERAL: Mr. Hill is a 56-year-old middle-aged male, looks older than his age, moderately built, moderately nourished, not in distress. HEENT: Pupils are normal and reactive to light and accommodation. Conjunctivae are pink. Sclerae are anicteric. Tongue is moist. Trachea is midline. LUNGS: Symmetric on both sides. Bilateral breath sounds present. Clear to auscultation. CVS: [place] at the fifth intercostal space, midclavicular line. S1 and S2 audible. No murmur or gallop. ABDOMEN: Normal in appearance. It is soft, tympanic. No guarding. No rigidity. No hepatosplenomegaly. VETERINARY PHARMACOLOGIST: The patient is alert, awake and oriented x2-3. Sensory and motor system is grossly within normal limits. EXTREMITIES: No cyanosis, no clubbing, no edema. CURRENT MEDICATIONS: Include as follows: Hydralazine 50 mg p.o. t.i.d., Crestor 2.5 mg p.o. at bedtime, Depakote 500 mg p.o. b.i.d., aspirin 81 mg daily, subcu heparin 5000 units every 12 hours, Lantus 16 units subcu at bedtime, NovoLog insulin 6 units subcu before meals, Plavix 75 mg daily, IV fluids half-normal saline at 60 mL/hour, metoprolol 100 mg p.o. daily. LABORATORY DATA: Include as follows as of 09/14/2017: WBC 7.1, hemoglobin 10.8, hematocrit is 31.8, and platelets are 242. Sodium 139, potassium 4.7, chloride 105, CO2 of 25, BUN 30, creatinine 1.3, glucose 168, calcium 9.2. Total bili 0.6, AST 24, ALT 18, alkaline phosphatase 74, total protein 6.4, albumin is 3.9. Ultrasound of the kidneys as of 09/13/2017: Right kidney is 11.2 x 4.4 x 4.6 cm, increased cortical echogenicity, normal size and contour, and no stones, solid mass or hydronephrosis. Left kidney is 10.1 x 5.8 x 5 cm, increased cortical echogenicity, normal size and contour, no stone, no solid mass or hydronephrosis. Impression: Bilateral echogenic kidneys compatible with medical renal disease. In other reports, hepatitis A antibody IgM is negative. Hepatitis B surface antigen is negative. Hepatitis B core antibody IgM is negative. Hepatitis C antibody is negative. Compliment level C3 is 83 and C4 is 22.9. Urinalysis as of 09/13/2017, yellow, clear, pH 5, specific gravity 1.018, protein 1+, glucose normal, ketones negative, blood negative, nitrites negative, bilirubin negative, urobilinogen normal, leukocyte esterase negative, wbc's 2, rbc 1, and hyaline cyst 0-2. ASSESSMENT: In summary, Mr. Hill is a 56-year-old middle-aged male with history of hypertension, diabetes, anxiety, schizophrenia, bipolar disorder, chronic kidney disease, coronary artery disease, congestive heart failure, was admitted with chest discomfort, confusion and hypoglycemia with increased blood urea nitrogen and creatinine. 1. Acute renal failure on chronic kidney disease, most likely secondary to intravascular volume depletion. 2. Uncontrolled diabetes. 3. Hypertension. 4. Psychiatric disorder. PLAN: Continue IV fluids half-normal saline at 60 mL/hour and check 24-hour urine protein, creatinine, creatinine clearance. Repeat BMP in a.m. Check WENDY level also. Renal function is almost back to his baseline. We will follow with you. Thank you for allowing me to participate in your patient's care. Jenna Galan MD
[2017-09-15] MEDS: (Novolog) Insulin Aspart, Recombinant 100 u/ml 10 ml vial SC SCH ×6 (07:11→16:47)
--- NOTE | 2017-09-15 09:21 | CP.PCM.PN ---
Subjective - Date & Time of Evaluation Date of Evaluation: 09/15/17 Time of Evaluation: 09:20 - Subjective Subjective: Discharge summary dictated #[id number] Objective - Vital Signs/Intake and Output Vital Signs (last 24 hours): Temp Pulse Resp BP Pulse Ox 98.5 F 76 20 184/92 H 100 09/15/17 08:21 09/15/17 08:21 09/15/17 08:21 09/15/17 08:21 09/15/17 08:21 Intake and Output: 09/15/17 09/15/17 06:59 18:59 Intake Total 880 Balance 880 - Medications Medications: Current Medications Aspirin (Ecotrin) 81 mg PO DAILY [facility] Last Admin: 09/14/17 09:58 Dose: 81 mg Clopidogrel Bisulfate (Plavix) 75 mg PO DAILY [facility] Last Admin: 09/14/17 09:58 Dose: 75 mg Divalproex Sodium (Depakote Er) 500 mg PO BID [facility] Last Admin: 09/14/17 17:24 Dose: 500 mg Heparin Sodium (Porcine) (Heparin) 5,000 units SC Q12 [facility] Last Admin: 09/14/17 21:31 Dose: 5,000 units Hydralazine HCl (Apresoline) 50 mg PO TID [facility] Last Admin: 09/14/17 17:24 Dose: 50 mg Sodium Chloride (Sodium Chloride 0.45%) 1,000 mls @ 60 mls/hr IV .[id number] [facility] Last Admin: 09/14/17 17:42 Dose: 60 mls/hr Insulin Aspart (Novolog) 0 unit SC ACHS [facility] Last Admin: 09/15/17 07:11 Dose: Not Given Insulin Aspart (Novolog) 6 unit SC AC [facility] Last Admin: 09/15/17 07:38 Dose: 6 units Insulin Glargine (Lantus) 16 unit SC HS [facility] Last Admin: 09/14/17 21:31 Dose: 16 units Metoprolol Succinate (Toprol Xl) 100 mg PO DAILY [facility] Last Admin: 09/14/17 09:58 Dose: 100 mg Rosuvastatin Calcium (Crestor) 2.5 mg PO HS [facility] Last Admin: 09/14/17 21:31 Dose: 2.5 mg - Labs Labs: 09/14/17 11:21 09/14/17 22:32
[2017-09-15] MEDS: Divalproex 500 mg ER Tab PO SCH ×2 (09:22→17:28)
[2017-09-15] MEDS: Metoprolol Succinate 100 mg XL Tab PO SCH (09:22)
[2017-09-15] MEDS: Sodium Chloride 0.45% 1,000 ML IV SCH (09:57)
[2017-09-15] MEDS ORDERED: Pneumococcal 23-Valent Vaccine IM ONE (10:00)
[2017-09-15 11:23] LABS: BASO % 0.6 % (0.0-2.0); EOS # 0.2 K/uL (0.0-0.7); EOS % 3.1 % (0.0-4.0); HEMOGLOBIN 10.7 g/dL (12.0-18.0); LYMPH # 2.8 K/uL (1.0-4.3); LYMPH % 39.9 % (20.0-40.0); MEAN CELL VOLUME 88.1 fL (80.0-94.0); MEAN CORPUSCULAR HEMOGLOBIN 30.3 pg (27.0-31.0); MEAN CORPUSCULAR HGB CONC 34.4 g/dL (33.0-37.0); MEAN PLATELET VOLUME 8.6 fL (7.2-11.7); MONO # 0.5 K/uL (0.0-0.8); MONO % 6.7 % (0.0-10.0); NEUT # 3.5 K/uL (1.8-7.0); NEUT % 49.7 % (50.0-75.0); NRBC % 0.1 % (0.0-2.0); RBC 3.53 Mil/uL (4.40-5.90); RED CELL DISTRIBUTION WIDTH 14.1 % (11.5-14.5)
[2017-09-15 11:35] LABS: BLOOD UREA NITROGEN 24 mg/dL (9-20); CALCIUM 9.3 mg/dl (8.6-10.4); GFR AFRICAN-AMERICAN > 60; GFR NON-AFRICAN AMERICAN > 60
--- NOTE | 2017-09-15 15:32 | PN ---
DATE: 09/15/2017 ENDO FOLLOWUP NOTE LOCATION: In room 352. SUBJECTIVE: This is a 56-year-old male with recent uncontrolled type 2 insulin-requiring diabetes, now being followed closely for metabolic management. His oral intake remains variable at this time with suboptimal meal portions as per the nursing staff. His glucose levels are fluctuating, but improved and have ranged from 173 to 178 mg/dL. His latest chemistry showed a BUN of 30, sodium 139, potassium 4.7, chloride 105, CO2 of 25, glucose 168, and creatinine 1.3. His calcium level is 9.2. ASSESSMENT: This is a 56-year-old male with uncontrolled and decompensated type 2 insulin-requiring diabetes, presenting with extremes of glycemic fluctuations from hypoglycemia to hyperglycemic accelerations depending on the variability of his oral intake as noted thereof. PLAN OF MANAGEMENT: We will modify his current insulin regimen and change the Novolog to 6 units subcu t.i.d. before meals to start today as ordered. We will also lower the basal insulin with Lantus to be given as 16 units subcu at bedtime daily to start tonight. We will continue the modified low dose coverage scale using Novolog insulin as ordered to obviate hypoglycemia and detailed orders have been given. We will obtain serial chemistries and supplement accordingly as needed. We will follow. Brook Hernandez MD
[2017-09-15 16:31] VITALS: BP 167/79; TEMP 98.4; O2SAT 98
--- NOTE | 2017-09-15 20:30 | PN ---
DATE: 09/15/2017 SUBJECTIVE: The patient denies any chest pain or shortness of breath. PHYSICAL EXAMINATION: VITAL SIGNS: Blood pressure 184/92, earlier was within normal limits 137/72, heart rate 76, temperature 98.5, and respirations 20. HEENT: Pale conjunctivae. CHEST: Clear. HEART: S1 and S2 regular. ABDOMEN: Soft. EXTREMITIES: No edema. LABORATORY DATA: SMA-7 is within normal limits except BUN of 24. Today's hemoglobin and hematocrit 10.7 and 31.1. White count and platelet count are within normal limits. ASSESSMENT: 1. Atypical chest pain, myocardial infarction is ruled out. 2. Improved renal insufficiency. 3. Bipolar disorder. 4. Mild anemia. 5. Uncontrolled diabetes mellitus. RECOMMENDATIONS: Continue hydralazine 50 mg t.i.d., Crestor 2.5 mg once a day, Depakote 500 mg once a day, aspirin 81 mg once a day, subcutaneous heparin 5000 units every 12 hours, Norvasc 5 mg once a day, Toprol XL 100 mg once a day, and Plavix 75 mg once a day. Mohit Brown MD
--- NOTE | 2017-09-16 08:07 | DS ---
DISCHARGE DIAGNOSES: 1. Acute kidney injury, on chronic kidney disease. 2. Uncontrolled diabetes. 3. Atypical chest pain. 4. Myocardial infarction, ruled out. 5. History of hypertension, uncontrolled blood pressure. 6. Status post hyperkalemia. 7. Coronary artery disease. 8. Congestive heart failure. 9. Bipolar disorder. 10. Status post hypoglycemia. 11. Anemia of chronic disease. 12. Hyperlipidemia. 13. Hypertension. HISTORY OF PRESENT ILLNESS: Mr. Hill is a 56-year-old male with history of uncontrolled diabetes mellitus, CAD, CHF, status post ND, hypertension, bipolar disorder who has been following up with Dr. Gaona, his primary care physician. Had multiple admissions in the past to psych unit and to multiple hospitals. Came into the ED with complaints of chest pain, lasted for few minutes in the ED. The patient was found to be having elevated potassium and elevated BUN and creatinine and low glucose levels, and the patient is being admitted for further management. Today, the patient is feeling much better. Denies any headache, dizziness. Denies any chest pain, shortness of breath, or wheezing. Denies any nausea, vomiting, abdominal pain, diarrhea, or constipation. Denies any urinary complaints. Denies any leg pains or leg cramps. Denies any other neurologic symptoms. All other systems reviewed and were found to be negative. PHYSICAL EXAMINATION: GENERAL: Middle aged male, lying in bed with no acute distress. VITAL SIGNS: Blood pressure 167/79, pulse 76, respirations 20, temperature 98.4 degree Fahrenheit, O2 sat 98% on room air. HEENT: Pupils equal, round, and reacting to light and accommodation. Extraocular muscles intact. No icterus. No pallor. No oral thrush. No pharyngeal congestion. NECK: Supple. No JVD. LUNGS: Bilateral vesicular breath sounds. No wheezing. No rhonchi. CVS: S1, S2 present, regular. ABDOMEN: Soft, nontender. Bowel sounds present. No guarding, no rigidity, no rebound tenderness noted. BACK SHOE CUTTER: Alert, awake, oriented x3. No focal deficits noted. EXTREMITIES: No edema. Palpable peripheral pulses. LABORATORY DATA: Labs done from this morning: WBC is 7, hemoglobin 10.7, hematocrit 31.1, platelets 236,000. Sodium 141, potassium 4.9, chloride 106, bicarb 25, BUN 24, creatinine 1.2, glucose 102, calcium 9.3, creatinine clearance is 42 mL, hepatitis serology negative, C3 is low, C4 is normal. D-dimer negative. HOSPITAL COURSE: The patient was admitted to the hospital for chest pain, acute kidney injury, and chronic kidney disease. The patient was given Kayexalate, started on IV fluids. His lisinopril was held. The patient's chest pain resolved. The patient was evaluated by Cardiology. Did not think any further workup needed at this time from cardiac standpoint. The patient is cleared by Cardiology for discharge with IV fluids. The patient's renal function improved. The patient was evaluated by Renal. His lisinopril was stopped and started on amlodipine, continued with other current medication. The patient was also evaluated by Endocrinology. The patient is otherwise feeling better and cleared by all the consultants. The patient is being discharged and advised the patient to follow up with all the consultants. If any symptoms recur, advised the patient to return to the ED. CONDITION UPON DISCHARGE: The patient is alert, awake, oriented x3 and hemodynamically stable at the time of discharge. DISCHARGE INSTRUCTIONS: Follow up with PMD. Follow up with Endocrinology. Follow up with Cardiology. Follow up with Nephrology. DISCHARGE DIET: Low sodium, low cholesterol, 1800-calorie ADA heart healthy diet. ACTIVITY: As tolerated. DISCHARGE MEDICATIONS: Include amlodipine 5 mg daily; aspirin 81 mg daily; Plavix 75 mg daily; Depakote 500 mg p.o. b.i.d; Haldol 2 mg p.o. b.i.d.; hydralazine 50 mg p.o. t.i.d.; insulin 10 units subcutaneous every 12 hours; lispro as needed; Ativan 1 mg as needed; metoprolol 50 mg tablet, 100 mg daily; pravastatin 20 mg daily; rolling walker; Ambien 10 mg p.o. at bedtime. Advised the patient to return to ED of any worsening of his symptoms. Francia Galan MD
== END 2017-09-15 19:14 | disposition home or self-care (01) | DRG 316 ==
LOC: C.ER 17:43 → C.9E 22:00 → C.3T 22:44
PROVIDERS: ADMIT Internal Medicine; ATTEND Internal Medicine
DX: N17.9 Acute kidney failure, unspecified (principal); E87.5 Hyperkalemia; E86.0 Dehydration; E11.649 Type 2 diabetes mellitus with hypoglycemia without coma; I13.0 Hypertensive heart and chronic kidney disease with heart failure and stage 1 through stage 4 chronic kidney disease, or unspecified chronic kidney disease; I50.9 Heart failure, unspecified; N18.9 Chronic kidney disease, unspecified; I25.10 Atherosclerotic heart disease of native coronary artery without angina pectoris; E78.5 Hyperlipidemia, unspecified; F31.9 Bipolar disorder, unspecified; F17.210 Nicotine dependence, cigarettes, uncomplicated; F25.9 Schizoaffective disorder, unspecified; F41.1 Generalized anxiety disorder; F03.90 Unspecified dementia, unspecified severity, without behavioral disturbance, psychotic disturbance, mood disturbance, and anxiety; I25.2 Old myocardial infarction; Z79.02 Long term (current) use of antithrombotics/antiplatelets; Z79.4 Long term (current) use of insulin

== ENCOUNTER 2017-10-06 01:24 | Inpatient (IN) | payer OTHER ==
[2017-10-06 01:26] VITALS: BMI 24.9
--- NOTE | 2017-10-06 01:39 | C.PDOC ---
History Of Present Illness 57 year old male with PMHx of DM2, HTN, likely CKD, CAD s/p SD in the past, schizophrenia, seizure is brought to the ED by EMS for evaluation. History is limited due to patients clinical condition. Per EMS called for increasing lethargy, elevated sugar at home today. No family available for further history. Patient was recently discharged earlier this month, he was hospitalized for acute renal insufficiency. Patient's baseline creatinine is 1.3 -1.7. DM2, HTN, likely CKD, CAD s/p SD in the past, and schizophrenia, seizure disorder. baseline creatinine is 1.3-1.7 ECHO 09/12: EF, LVF WNL Chief Complaint (Nursing): High Blood Sugar History Per: EMS History/Exam Limitations: clinical condition Onset/Duration Of Symptoms: Hrs Current Symptoms Are (Timing): Still Present Severity: Moderate Recent travel outside of the [place]: No Additional History Per: EMS Past Medical History Reviewed: Historical Data, Nursing Documentation, Vital Signs Vital Signs: Last Vital Signs Temp 97.9 F 10/06/17 01:36 Pulse 79 10/06/17 03:34 Resp 14 10/06/17 03:34 BP 133/48 L 10/06/17 03:34 Pulse Ox 100 10/06/17 04:02 - Medical History PMH: Anemia, Anxiety, Bipolar Disorder, CAD, CHF, Dementia, Depression, Diabetes (DKA), Fractures (Skull), HTN, Schizophrenia Denies: Hepatitis, HIV, Kidney Stones, Chronic Kidney Disease, Seizures, Sexually Transmitted Disease Surgical History: No Surg Hx - [facility] Procedures INSERTION OF ENDOTRACHEAL AIRWAY INTO TRACHEA, VIA OPENING (12/06/14) INTRODUCTION OF SERUM/TOX/VACCINE INTO MUSCLE, PERC APPROACH (11/26/16) OCCUPATIONAL THERAPY (06/01/14) PHYSICAL THERAPY NEC (06/01/14) RESPIRATORY VENTILATION, 24-96 CONSECUTIVE HOURS (12/06/14) VACCINATION NEC (06/15/14) Family History: States: Unknown Family Hx - Social History Hx Tobacco Use: Yes Hx Alcohol Use: Yes Hx Substance Use: No - Immunization History Hx Tetanus Toxoid Vaccination: No Hx Influenza Vaccination: No Hx Pneumococcal Vaccination: No Review Of Systems Review Of Systems: ROS cannot be obtained secondary to pt's inabilty to answer questions. Physical Exam - Physical Exam Appears: Other (sleeping response to painful stimuli, follow commands) Skin: Normal Color, Warm, Dry Head: Atraumatic, Normacephalic Eye(s): bilateral: Normal Inspection Oral Mucosa: Moist Neck: Normal ROM, Supple Chest: Symmetrical Cardiovascular: Rhythm Regular Respiratory: Normal Breath Sounds, No Rales, No Rhonchi, No Wheezing Gastrointestinal/Abdominal: Soft, No Tenderness, No Guarding, No Rebound Extremity: Normal ROM, No Tenderness, No Swelling Extremity: Bilateral: Atraumatic Neurological/Psych: Other (sleeping with response to painful stimuli, follows commands) Gait: Unable To Assess ED Course And Treatment - Laboratory Results Result Diagrams: 10/06/17 04:46 10/06/17 01:53 ECG: Interpreted By Vt ECG Rhythm: Sinus Rhythm ECG Interpretation: Normal Rate From EC O2 Sat by Pulse Oximetry: 100 (ON RA) Pulse Ox Interpretation: Normal - Radiology CXR: Interpreted by Me CXR Interpretation: Yes: No Acute Disease - CT Scan/US CT head Other Rad Studies (CT/US): Read By Radiologist, Radiology Report Reviewed CT/US Interpretation: EXAM: CT Head Without Intravenous Contrast. CLINICAL HISTORY: 57 years old, male; Pain; Other: Confused; Patient HX: 06-24-17 images sent; Additional info: AMS. TECHNIQUE: Axial computed tomography images of the head/brain without intravenous contrast. All CT scans at. this facility use at least one of these dose optimization techniques: automated exposure control; mA. and/or kV adjustment per patient size (includes targeted exams where dose is matched to clinical. indication); or iterative reconstruction. COMPARISON: No relevant prior studies available. FINDINGS: Brain: Moderate atrophy. No intracranial hemorrhage. No mass. Minimal decreased attenuation. within periventricular white matter. Probable chronic lacunar infarct within LEFT thalamus. No. definite edema. Ventricles: No hydrocephalus. Bones/joints : No acute fracture. Soft tissues: Dermal calcifications. Tiny dermal lesion frontal scalp. Vasculature: Minimal atherosclerotic disease of intracranial arteries. Sinuses: No acute sinusitis. Mastoid air cells: No significant effusion. Orbits: Unremarkable as visualized. IMPRESSION: 1. Nonspecific white matter changes. Acute infarction may be CT occult within first 24 hours. If a. focal deficit persists, consider followup CT or MRI for further evaluation. 2. Incidental/non-acute findings are described above. Thank you for allowing us to participate in the care of your patient. Dictated and Authenticated by: Kevin Johnson MD Progress - Re-Evaluation Re-evaluation Note: 10/06/17 02:46 D/W DR BERRY AWARE OF ER FINDINGS WILL EVAL IN ER EXAM UN[facility], VSS. ivf in progress 10/06/17 03:00 d/w dr pa c/f pmd will admit. icu eval pending - Data Reviewed Data Reviewed: Lab, Diagnostic imaging, EKG, Old records - Critical Care Citical Care: Excluding Proc Time Critical Care Time: 120 minutes - Continuity of Care Discussed patient case with:: Covering for PMD Discussed pt. case with websphere consultant/specialty: Pulmonary/Crit. Care Medical Decision Making Medical Decision Making: Impression: lethargy, high blood sugar at home Plan: * VBG * CT head * EKG * Labs * IV fluids * Insulin * IV fluids * Urine culture * UA Disposition Counseled Patient/Family Regarding: Studies Performed, Diagnosis - Disposition Disposition: HOSPITALIZED Disposition Time: 03:01 Condition: SERIOUS Forms: [facility] ([place]yan) - POA Present On Arrival: Poor Glycemic Control - Clinical Impression Clinical Impression: Acute renal failure (ARF), Toxic metabolic encephalopathy, Hyperosmolar hyperglycemic coma due to diabetes mellitus without ketoacidosis - Scribe Statement The provider has reviewed the documentation as recorded by the Scribe Chris Licona All medical record entries made by the Scribe were at my direction and personally dictated by me. I have reviewed the chart and agree that the record accurately reflects my personal performance of the history, physical exam, medical decision making, and the department course for this patient. I have also personally directed, reviewed, and agree with the discharge instructions and disposition.
[2017-10-06] MEDS ORDERED: Sodium Chloride 0.9% 250 ML IV ONE (01:47)
[2017-10-06 01:53] LABS: VENOUS BLOOD GAS BASE EXCESS -11.6 mmol/L (0.0-2.0); VENOUS BLOOD GAS PCO2 33 mmHg (40-60); VENOUS BLOOD GAS PO2 29 mm/Hg (30-55); VENOUS BLOOD PH 7.25 (7.32-7.43)
[2017-10-06] MEDS ORDERED: Sodium Chloride 0.9% 1,000 ML IV ONE ×2 (01:54→02:55)
[2017-10-06] MEDS ORDERED: (Novolin R) Insulin Human Regular 100 units/ml vial IV STA ×2 (01:54)
[2017-10-06 02:00] LABS: BASO % 0.6 % (0.0-2.0); EOS % 0.4 % (0.0-4.0); HEMOGLOBIN 9.4 g/dL (12.0-18.0); LYMPH % 28.9 % (20.0-40.0); MEAN CELL VOLUME 97.6 fL (80.0-94.0); MEAN CORPUSCULAR HEMOGLOBIN 30.2 pg (27.0-31.0); MEAN CORPUSCULAR HGB CONC 30.9 g/dL (33.0-37.0); MEAN PLATELET VOLUME 8.8 fL (7.2-11.7); MONO # 0.6 K/uL (0.0-0.8); MONO % 8.7 % (0.0-10.0); NEUT # 4.2 K/uL (1.8-7.0); NEUT % 61.4 % (50.0-75.0); NRBC % 0.1 % (0.0-2.0); RBC 3.11 Mil/uL (4.40-5.90); RED CELL DISTRIBUTION WIDTH 15.6 % (11.5-14.5); WHITE BLOOD COUNT 6.8 K/uL (4.8-10.8)
[2017-10-06] MEDS ORDERED: (Novolin R) Insulin Human Regular 100 units/ml vial ONE (02:15)
[2017-10-06 02:42] LABS: ALBUMIN 3.9 g/dL (3.5-5.0); CALCIUM 8.6 mg/dl (8.6-10.4)
[2017-10-06] MEDS ORDERED: Calcium Gluconate 4.65 MEQ in Dextrose 5% In Water 100 ML IV STA (02:43)
[2017-10-06] MEDS ORDERED: Calcium Gluconate 4.65 mEq/10 ml Inj ONE (02:51)
[2017-10-06] MEDS ORDERED: Calcium Gluconate 4.65 mEq/10 ml Inj IVP ONE (02:53)
[2017-10-06] MEDS ORDERED: Insulin Human Regular 100 UNIT in Sodium Chloride 0.9% 99 ML IV SCH (03:00)
[2017-10-06 03:40] LABS: URINE BILIRUBIN NEGATIVE (NEGATIVE); URINE BLOOD NEGATIVE (NEGATIVE); URINE CLARITY Clear (Clear); URINE COLOR Straw (YELLOW); URINE GLUCOSE (UA) 3+ mg/dL (Normal); URINE LEUKOCYTE ESTERASE NEG Leu/uL (Negative); URINE PROTEIN NEGATIVE (NEGATIVE); URINE UROBILINOGEN NORMAL mg/dL (0.2-1.0)
[2017-10-06 04:48] LABS: VENOUS BLOOD GAS BASE EXCESS -14.8 mmol/L (0.0-2.0); VENOUS BLOOD GAS PCO2 35 mmHg (40-60); VENOUS BLOOD GAS PO2 60 mm/Hg (30-55); VENOUS BLOOD PH 7.17 (7.32-7.43)
[2017-10-06 04:49] LABS: BASO % 0.6 % (0.0-2.0); EOS % 0.3 % (0.0-4.0); HEMOGLOBIN 8.3 g/dL (12.0-18.0); LYMPH # 2.5 K/uL (1.0-4.3); LYMPH % 34.7 % (20.0-40.0); MEAN CELL VOLUME 94.3 fL (80.0-94.0); MEAN CORPUSCULAR HEMOGLOBIN 30.4 pg (27.0-31.0); MEAN CORPUSCULAR HGB CONC 32.2 g/dL (33.0-37.0); MEAN PLATELET VOLUME 8.1 fL (7.2-11.7); MONO # 0.5 K/uL (0.0-0.8); MONO % 6.7 % (0.0-10.0); NEUT # 4.1 K/uL (1.8-7.0); NEUT % 57.7 % (50.0-75.0); RBC 2.74 Mil/uL (4.40-5.90); RED CELL DISTRIBUTION WIDTH 15.4 % (11.5-14.5); WHITE BLOOD COUNT 7.1 K/uL (4.8-10.8)
[2017-10-06] MEDS: Sodium Chloride 0.45% 1,000 ML IV SCH ×2 (04:52→09:22)
[2017-10-06 04:53] LABS: INR 0.8
--- NOTE | 2017-10-06 04:55 | CP.PCM.HP ---
<Ling Nuno E - Last Filed: 10/06/17 06:13> History of Present Illness - History of Present Illness History of Present Illness: CC: Lethargic HPI: Patient is a poor historian and unable to obtain adequate HPI due to pt's current condition Patient is a 57 year old male with past medical history of uncontrolled diabetes , DKA, CAD, CHF, HTN, anemia, alcohol abuse bipolar, schizophrenia, dementia, who presents to the ED via EMS for hyperglycemia and lethargy. As per EMS reports and nursing staff, patient's noted patient was lethargy with mild altered mental change and elevated blood glucose, therefore she called for an ambulance. As per EMR, patient has had multiple episodes of DKA. Unable to obtain adequate ROS due to patient's current condition. Following patient's information as per EMR PMD: Jimenez PMHx: Uncontrolled diabetes, DKA, CAD, CHF, HTN, anemia, alcohol abuse bipolar, schizophrenia, dementia, CAD, CHF, HTN, anemia PSHx: Unable to obtain FHx: Unable to obtain Medications: Januvia 50mg PO QD, ASA 81mg PO QD, Lisinopril 20mg PO QD, Haldol 2mg PO, Norvasc 5mg PO QD, Pravastatin 20mg PO HS, Ambien 10mg PO HS, Hydralazine 50mg PO QD, Lyrica 75mg PO QD, Plavix 75mg PO QD, Depakote 500mg PO QD Allergies: NKDA Social Hx: Lives with , No noted use of tobacco, ETOH and illicit drugs Present on Admission - Present on Admission Any Indicators Present on Admission: Yes History of Uncontrolled Diabetes: Yes Review of Systems - Review of Systems Review of Systems: Unable to obtain adequate ROS due to patient's current condition Past Patient History - Infectious Disease Hx of Infectious Diseases: None - Tetanus Immunizations Tetanus Immunization: Unknown - Past Medical History & Family History Past Medical History?: Yes - Past Social History Smoking Status: Never Smoked - CARDIAC Hx Congestive Heart Failure: Yes Hx Hypertension: Yes - PULMONARY Hx Respiratory Disorders: No Hx Tuberculosis: No - NEUROLOGICAL Hx Dementia: Yes Hx Seizures: No - HEENT Hx HEENT Problems: No - RENAL Hx Chronic Kidney Disease: No Hx Kidney Stones: No - ENDOCRINE/METABOLIC Hx Diabetes Mellitus Type 1: Yes - HEMATOLOGICAL/ONCOLOGICAL Hx Anemia: Yes Hx Human Immunodeficiency Virus (HIV): No - INTEGUMENTARY Hx Dermatological Problems: No - MUSCULOSKELETAL/RHEUMATOLOGICAL Hx Fractures: Yes (Skull) - GASTROINTESTINAL Hx Gastrointestinal Disorders: Yes HX Swallowing Problems: Yes - GENITOURINARY/GYNECOLOGICAL Hx Sexually Transmitted Disorders: No - PSYCHIATRIC Hx Anxiety: Yes Hx Bipolar Disorder: Yes Hx Depression: Yes Hx Schizophrenia: Yes Hx Substance Use: No - SURGICAL HISTORY Hx Surgeries: Yes Other/Comment: metal plates in head (skull fx) - ANESTHESIA Hx Anesthesia: Yes Hx Anesthesia Reactions: No Hx Malignant Hyperthermia: No Meds Allergies/Adverse Reactions: Allergies Allergy/AdvReac Type Severity Reaction Status Date / Time No Known Allergies Allergy Verified 06/26/17 03:42 Physical Exam - Constitutional Additional comments: Lethargic - Head Exam Head Exam: ATRAUMATIC, NORMOCEPHALIC - Eye Exam Eye Exam: EOMI Pupil Exam: NORMAL ACCOMODATION - ENT Exam ENT Exam: Mucous Membranes Dry - Respiratory Exam Respiratory Exam: Decreased Breath Sounds, NORMAL BREATHING PATTERN. absent: Prolonged Expiratory Phase, Rhonchi, Wheezes, Respiratory Distress - Cardiovascular Exam Cardiovascular Exam: REGULAR RHYTHM, +S1, +S2. absent: Diastolic murmur, Systolic Murmur - GI/Abdominal Exam GI & Abdominal Exam: Normal Bowel Sounds, Soft. absent: Distended, Firm, Guarding - Extremities Exam Extremities exam: Positive for: pedal pulses present. Negative for: pedal edema - Neurological Exam Additional comments: AAOX1 - Skin Skin Exam: Diaphoretic, Dry Results - Vital Signs Recent Vital Signs: Last Vital Signs Temp 97.9 F 10/06/17 01:36 Pulse 79 10/06/17 03:34 Resp 14 10/06/17 03:34 BP 133/48 L 10/06/17 03:34 Pulse Ox 100 10/06/17 04:02 - Labs Result Diagrams: 10/06/17 04:46 10/06/17 04:46 Labs: Laboratory Results - last 24 hr 10/06/17 10/06/17 10/06/17 01:29 01:40 01:49 WBC RBC Hgb Hct MCV MCH MCHC RDW Plt Count MPV Neut % (Auto) Lymph % (Auto) [place] % (Auto) Eos % (Auto) Baso % (Auto) Neut # (Auto) Lymph # (Auto) [place] # (Auto) Eos # (Auto) Baso # (Auto) pO2 29 L VBG pH 7.25 L VBG pCO2 33 L VBG HCO3 14.4 VBG Total CO2 15.5 L VBG O2 Sat (Calc) 65.1 H VBG Base Excess -11.6 L VBG Potassium 7.6 H* Sodium 127.0 L Chloride 94.0 L Glucose > 750 H* Lactate 2.2 H Crit Value Called To Wolf mckenzie rn Crit Value Called By Inna dry boss Crit Value Read Back Y Blood Gas Notified Time 153 Potassium Carbon Dioxide Anion Gap BUN Creatinine Est GFR ( Amer) Est GFR (Non-Af Amer) POC Glucose (mg/dL) > 500 H* Random Glucose Calcium Total Bilirubin AST ALT Alkaline Phosphatase Total Protein Albumin Globulin Albumin/Globulin Ratio Venous Blood Potassium 7.6 H* Urine Color Straw Urine Clarity Clear Urine pH 5.0 Ur Specific [place] 1.021 Urine Protein Negative Urine Glucose (UA) 3+ H Urine Ketones 1+ H Urine Blood Negative Urine Nitrate Negative Urine Bilirubin Negative Urine Urobilinogen Normal Ur Leukocyte Esterase Neg Urine WBC (Auto) < 1 Urine RBC (Auto) < 1 B-Hydroxybutyrate 10/06/17 10/06/17 10/06/17 01:53 01:53 02:46 WBC 6.8 RBC 3.11 L Hgb 9.4 L Hct 30.3 L MCV 97.6 H D MCH 30.2 MCHC 30.9 L RDW 15.6 H Plt Count 266 MPV 8.8 Neut % (Auto) 61.4 Lymph % (Auto) 28.9 [place] % (Auto) 8.7 Eos % (Auto) 0.4 Baso % (Auto) 0.6 Neut # (Auto) 4.2 Lymph # (Auto) 2.0 [place] # (Auto) 0.6 Eos # (Auto) 0.0 Baso # (Auto) 0.0 pO2 VBG pH VBG pCO2 VBG HCO3 VBG Total CO2 VBG O2 Sat (Calc) VBG Base Excess VBG Potassium Sodium 126 L Chloride 93 L Glucose Lactate Crit Value Called To Crit Value Called By Crit Value Read Back Blood Gas Notified Time Potassium 7.4 H* D Carbon Dioxide 13 L Anion Gap 28 H BUN 59 H Creatinine 2.7 H Est GFR ( Amer) 30 Est GFR (Non-Af Amer) 24 POC Glucose (mg/dL) > 500 H* Random Glucose 1086 H* Calcium 8.6 Total Bilirubin 0.3 AST 15 L D ALT 27 Alkaline Phosphatase 102 Total Protein 5.8 L Albumin 3.9 Globulin 2.0 L Albumin/Globulin Ratio 2.0 Venous Blood Potassium Urine Color Urine Clarity Urine pH Ur Specific [place] Urine Protein Urine Glucose (UA) Urine Ketones Urine Blood Urine Nitrate Urine Bilirubin Urine Urobilinogen Ur Leukocyte Esterase Urine WBC (Auto) Urine RBC (Auto) B-Hydroxybutyrate 5.21 H Assessment & Plan (1) DKA (diabetic ketoacidoses) Assessment and Plan: Admission to ICU HgbA1C (09/13/17): 9.9 Management: * Titratable insulin drip * 1/2 NS @ 300mls/hr * Accuchecks Status: Acute Priority: High (2) Hyperkalemia Assessment and Plan: On admission: * K+: 7.4 Calcium Gluconate 4.65meq once Titratable insulin drip Status: Resolved (3) History of coronary artery disease Assessment and Plan: Continue home medication: * Plavix 75mg PO QD * ASA 81mg PO QD * Pravastatin 20mg PO HS Status: Acute (4) JORGE L (acute kidney injury) Assessment and Plan: Secondary to uncontrolled diabetes and JORGE L NS @ 300mls/hr, continue to monitor with labs Status: Acute (5) History of hypertension Assessment and Plan: home medications: ( Currently held due to borderline BP) * Hydralazine 50mg PO QD * Metoprolol Xl 100mg PO QD * Norvasc 5mg PO QD * Lisinopril 20mg PO QD (Hold due to JORGE L) Status: Acute (6) Schizophrenia Assessment and Plan: And bipolar with aggressive behavior Home medications: * Haldol 2mg PO BID * Depakote 500mg PO BID * Ambien 10mg PO HS Status: Chronic (7) Prophylactic measure Assessment and Plan: GI: Pepcid 20mg IV daily DVT: SCDs, Heparin 5,000 units SC Q8H PT/OT Status: Acute <Florian Botello - Last Filed: 10/06/17 06:29> Results - Vital Signs Recent Vital Signs: Last Vital Signs Temp 97.9 F 10/06/17 01:36 Pulse 69 10/06/17 05:46 Resp 12 10/06/17 05:46 BP 109/41 L 10/06/17 05:46 Pulse Ox 100 10/06/17 05:46 - Labs Result Diagrams: 10/06/17 04:46 10/06/17 04:46 Labs: Laboratory Results - last 24 hr 10/06/17 10/06/17 10/06/17 01:29 01:40 01:49 WBC RBC Hgb Hct MCV MCH MCHC RDW Plt Count MPV Neut % (Auto) Lymph % (Auto) [place] % (Auto) Eos % (Auto) Baso % (Auto) Neut # (Auto) Lymph # (Auto) [place] # (Auto) Eos # (Auto) Baso # (Auto) PT INR APTT pO2 29 L VBG pH 7.25 L VBG pCO2 33 L VBG HCO3 14.4 VBG Total CO2 15.5 L VBG O2 Sat (Calc) 65.1 H VBG Base Excess -11.6 L VBG Potassium 7.6 H* Sodium 127.0 L Chloride 94.0 L Glucose > 750 H* Lactate 2.2 H Crit Value Called To Wolf mckenzie rn Crit Value Called By Inna dry boss Crit Value Read Back Y Blood Gas Notified Time 153 Potassium Carbon Dioxide Anion Gap BUN Creatinine Est GFR ( Amer) Est GFR (Non-Af Amer) POC Glucose (mg/dL) > 500 H* Random Glucose Calcium Phosphorus Magnesium Total Bilirubin AST ALT Alkaline Phosphatase Total Protein Albumin Globulin Albumin/Globulin Ratio Venous Blood Potassium 7.6 H* Urine Color Straw Urine Clarity Clear Urine pH 5.0 Ur Specific [place] 1.021 Urine Protein Negative Urine Glucose (UA) 3+ H Urine Ketones 1+ H Urine Blood Negative Urine Nitrate Negative Urine Bilirubin Negative Urine Urobilinogen Normal Ur Leukocyte Esterase Neg Urine WBC (Auto) < 1 Urine RBC (Auto) < 1 B-Hydroxybutyrate 10/06/17 10/06/17 10/06/17 01:53 01:53 02:46 WBC 6.8 RBC 3.11 L Hgb 9.4 L Hct 30.3 L MCV 97.6 H D MCH 30.2 MCHC 30.9 L RDW 15.6 H Plt Count 266 MPV 8.8 Neut % (Auto) 61.4 Lymph % (Auto) 28.9 [place] % (Auto) 8.7 Eos % (Auto) 0.4 Baso % (Auto) 0.6 Neut # (Auto) 4.2 Lymph # (Auto) 2.0 [place] # (Auto) 0.6 Eos # (Auto) 0.0 Baso # (Auto) 0.0 PT INR APTT pO2 VBG pH VBG pCO2 VBG HCO3 VBG Total CO2 VBG O2 Sat (Calc) VBG Base Excess VBG Potassium Sodium 126 L Chloride 93 L Glucose Lactate Crit Value Called To Crit Value Called By Crit Value Read Back Blood Gas Notified Time Potassium 7.4 H* D Carbon Dioxide 13 L Anion Gap 28 H BUN 59 H Creatinine 2.7 H Est GFR ( Amer) 30 Est GFR (Non-Af Amer) 24 POC Glucose (mg/dL) > 500 H* Random Glucose 1086 H* Calcium 8.6 Phosphorus Magnesium Total Bilirubin 0.3 AST 15 L D ALT 27 Alkaline Phosphatase 102 Total Protein 5.8 L Albumin 3.9 Globulin 2.0 L Albumin/Globulin Ratio 2.0 Venous Blood Potassium Urine Color Urine Clarity Urine pH Ur Specific [place] Urine Protein Urine Glucose (UA) Urine Ketones Urine Blood Urine Nitrate Urine Bilirubin Urine Urobilinogen Ur Leukocyte Esterase Urine WBC (Auto) Urine RBC (Auto) B-Hydroxybutyrate 5.21 H 10/06/17 10/06/17 10/06/17 03:44 04:40 04:46 WBC 7.1 RBC 2.74 L Hgb 8.3 L Hct 25.9 L MCV 94.3 H D MCH 30.4 MCHC 32.2 L RDW 15.4 H Plt Count 239 MPV 8.1 Neut % (Auto) 57.7 Lymph % (Auto) 34.7 [place] % (Auto) 6.7 Eos % (Auto) 0.3 Baso % (Auto) 0.6 Neut # (Auto) 4.1 Lymph # (Auto) 2.5 [place] # (Auto) 0.5 Eos # (Auto) 0.0 Baso # (Auto) 0.0 PT INR APTT pO2 60 H VBG pH 7.17 L* VBG pCO2 35 L VBG HCO3 13.0 VBG Total CO2 13.9 L VBG O2 Sat (Calc) 92.9 H VBG Base Excess -14.8 L VBG Potassium 4.7 Sodium 136.0 Chloride 105.0 Glucose > 750 H* Lactate 6.6 H* Crit Value Called To Jean Paul gunter/rn Crit Value Called By Stalin burks/rt Crit Value Read Back Y Blood Gas Notified Time 450 Potassium Carbon Dioxide Anion Gap BUN Creatinine Est GFR ( Amer) Est GFR (Non-Af Amer) POC Glucose (mg/dL) > 500 H* Random Glucose Calcium Phosphorus Magnesium Total Bilirubin AST ALT Alkaline Phosphatase Total Protein Albumin Globulin Albumin/Globulin Ratio Venous Blood Potassium 4.7 Urine Color Urine Clarity Urine pH Ur Specific [place] Urine Protein Urine Glucose (UA) Urine Ketones Urine Blood Urine Nitrate Urine Bilirubin Urine Urobilinogen Ur Leukocyte Esterase Urine WBC (Auto) Urine RBC (Auto) B-Hydroxybutyrate 10/06/17 10/06/17 10/06/17 04:46 04:46 05:59 WBC RBC Hgb Hct MCV MCH MCHC RDW Plt Count MPV Neut % (Auto) Lymph % (Auto) [place] % (Auto) Eos % (Auto) Baso % (Auto) Neut # (Auto) Lymph # (Auto) [place] # (Auto) Eos # (Auto) Baso # (Auto) PT 9.0 L INR 0.8 APTT 27 pO2 VBG pH VBG pCO2 VBG HCO3 VBG Total CO2 VBG O2 Sat (Calc) VBG Base Excess VBG Potassium Sodium 136 Chloride 104 Glucose Lactate Crit Value Called To Crit Value Called By Crit Value Read Back Blood Gas Notified Time Potassium 4.8 Carbon Dioxide 12 L Anion Gap 25 H BUN 52 H Creatinine 2.5 H Est GFR ( Amer) 32 Est GFR (Non-Af Amer) 27 POC Glucose (mg/dL) > 500 H* Random Glucose 722 H* D Calcium 8.8 Phosphorus 3.8 Magnesium 2.6 H Total Bilirubin 0.1 L AST 16 L ALT 26 Alkaline Phosphatase 83 Total Protein 5.4 L Albumin 3.4 L Globulin 2.0 L Albumin/Globulin Ratio 1.7 Venous Blood Potassium Urine Color Urine Clarity Urine pH Ur Specific [place] Urine Protein Urine Glucose (UA) Urine Ketones Urine Blood Urine Nitrate Urine Bilirubin Urine Urobilinogen Ur Leukocyte Esterase Urine WBC (Auto) Urine RBC (Auto) B-Hydroxybutyrate Assessment & Plan - Date & Time Date: 10/06/17 (I have seen and examined the patient. I agree with the findings and plan of care as documented by Dr. Nuno. Patient with hyperosmolar non ketotic state, acute kidney injury, and hyperkalemia. Insulin drip and IVF. Admit to ICU. Further management as per ICU. Monitor for acute changes.) Time: 06:28 Attending/Attestation - Attestation I have personally seen and examined this patient.: Yes I have fully participated in the care of the patient.: Yes I have reviewed all pertinent clinical information: Yes
[2017-10-06 05:27] LABS: ALB/GLOB RATIO 1.7 (1.0-2.1); ALBUMIN 3.4 g/dL (3.5-5.0); CALCIUM 8.8 mg/dl (8.6-10.4)
--- NOTE | 2017-10-06 05:50 | CP.PCM.CON ---
History of Present Illness - History of Present Illness History of Present Illness: Patient is a 57 year old male with past medical history of uncontrolled diabetes , DKA, CAD, CHF, HTN, anemia, alcohol abuse bipolar, schizophrenia, dementia, who presents to the ED via EMS for hyperglycemia and lethargy. As per EMS reports and nursing staff, patient's noted patient was lethargy with mild altered mental change and elevated blood glucose, therefore she called for an ambulance. Patient could not provide exact reason why he was brought to ER, denies any complains, know he is in hospital but not the name, says he is 56 yrs old, doesn't know what month is this, also mentions has been taking his medications. In ER patient found hyperglycemic, hyperkalemic, JORGE L, dehydrated, arousable but tired. Patient received 2 lits NS bolus and had received insulin bolus and drip. Patient asked for critical care evaluation for severe metabolic derangements. Following patient's information as per EMR PMD: Jimenez PMHx: Uncontrolled diabetes, DKA, CAD, CHF, HTN, anemia, alcohol abuse bipolar, schizophrenia, dementia, CAD, CHF, HTN, anemia PSHx: Unable to obtain FHx: Unable to obtain Medications: Januvia 50mg PO QD, ASA 81mg PO QD, Lisinopril 20mg PO QD, Haldol 2mg PO, Norvasc 5mg PO QD, Pravastatin 20mg PO HS, Ambien 10mg PO HS, Hydralazine 50mg PO QD, Lyrica 75mg PO QD, Plavix 75mg PO QD, Depakote 500mg PO QD Allergies: NKDA Social Hx: Lives with , mentions smokes few cig, denies ETOH and illicit drugs Review of Systems - Review of Systems All systems: reviewed and no additional remarkable complaints except (HPI) Past Patient History - Infectious Disease Hx of Infectious Diseases: None - Tetanus Immunizations Tetanus Immunization: Unknown - Past Medical History & Family History Past Medical History?: Yes - Past Social History Smoking Status: Current Some Days Smoker Alcohol: None Home Situation {Lives}: With Family - CARDIAC Hx Congestive Heart Failure: Yes Hx Hypertension: Yes - PULMONARY Hx Respiratory Disorders: No Hx Tuberculosis: No - NEUROLOGICAL Hx Dementia: Yes Hx Seizures: No - HEENT Hx HEENT Problems: No - RENAL Hx Chronic Kidney Disease: No Hx Kidney Stones: No - ENDOCRINE/METABOLIC Hx Diabetes Mellitus Type 1: Yes - HEMATOLOGICAL/ONCOLOGICAL Hx Anemia: Yes Hx Human Immunodeficiency Virus (HIV): No - INTEGUMENTARY Hx Dermatological Problems: No - MUSCULOSKELETAL/RHEUMATOLOGICAL Hx Fractures: Yes (Skull) - GASTROINTESTINAL Hx Gastrointestinal Disorders: Yes HX Swallowing Problems: Yes - GENITOURINARY/GYNECOLOGICAL Hx Sexually Transmitted Disorders: No - PSYCHIATRIC Hx Anxiety: Yes Hx Bipolar Disorder: Yes Hx Depression: Yes Hx Schizophrenia: Yes Hx Substance Use: No - SURGICAL HISTORY Hx Surgeries: Yes Other/Comment: metal plates in head (skull fx) - ANESTHESIA Hx Anesthesia: Yes Hx Anesthesia Reactions: No Hx Malignant Hyperthermia: No Meds Allergies/Adverse Reactions: Allergies Allergy/AdvReac Type Severity Reaction Status Date / Time No Known Allergies Allergy Verified 06/26/17 03:42 - Medications Medications: Current Medications Divalproex Sodium (Depakote Er) 500 mg PO BID ALIE Famotidine (Pepcid) 20 mg IVP DAILY [facility] Insulin Human Regular 100 unit (/ Sodium Chloride) 100 mls @ 6.35 mls/hr IV .[id number] ALIE; 0.1 U/KG/HR PRN Reason: Protocol Last Admin: 10/06/17 03:37 Dose: 6.35 mls/hr Sodium Chloride (Sodium Chloride 0.45%) 1,000 mls @ 300 mls/hr IV .[id number] ALIE Stop: 10/06/17 11:09 Last Admin: 10/06/17 04:52 Dose: 300 mls/hr Physical Exam - Additional Findings Additional findings: HEENT ZA, dry mucous membranes neck supple CVS Regular, no gallop or rub PA soft, nt bs present Ext no edema, some bruising Skin turgor low, SNUFF BLENDER awake, weak, difficulty in talking due to dry mouth, moving all 4 limbs, some slurring suspected from dry mouth. Results - Vital Signs Recent Vital Signs: Last Vital Signs Temp 97.9 F 10/06/17 01:36 Pulse 79 10/06/17 03:34 Resp 14 10/06/17 03:34 BP 133/48 L 10/06/17 03:34 Pulse Ox 100 10/06/17 04:51 - Labs Result Diagrams: 10/06/17 04:46 10/06/17 04:46 Labs: Laboratory Results - last 24 hr 10/06/17 10/06/17 10/06/17 01:29 01:40 01:49 WBC RBC Hgb Hct MCV MCH MCHC RDW Plt Count MPV Neut % (Auto) Lymph % (Auto) [place] % (Auto) Eos % (Auto) Baso % (Auto) Neut # (Auto) Lymph # (Auto) [place] # (Auto) Eos # (Auto) Baso # (Auto) PT INR APTT pO2 29 L VBG pH 7.25 L VBG pCO2 33 L VBG HCO3 14.4 VBG Total CO2 15.5 L VBG O2 Sat (Calc) 65.1 H VBG Base Excess -11.6 L VBG Potassium 7.6 H* Sodium 127.0 L Chloride 94.0 L Glucose > 750 H* Lactate 2.2 H Crit Value Called To Wolf mckenzie rn Crit Value Called By Inna livestock yard supervisor Crit Value Read Back Y Blood Gas Notified Time 153 Potassium Carbon Dioxide Anion Gap BUN Creatinine Est GFR ( Amer) Est GFR (Non-Af Amer) POC Glucose (mg/dL) > 500 H* Random Glucose Calcium Phosphorus Magnesium Total Bilirubin AST ALT Alkaline Phosphatase Total Protein Albumin Globulin Albumin/Globulin Ratio Venous Blood Potassium 7.6 H* Urine Color Straw Urine Clarity Clear Urine pH 5.0 Ur Specific [place] 1.021 Urine Protein Negative Urine Glucose (UA) 3+ H Urine Ketones 1+ H Urine Blood Negative Urine Nitrate Negative Urine Bilirubin Negative Urine Urobilinogen Normal Ur Leukocyte Esterase Neg Urine WBC (Auto) < 1 Urine RBC (Auto) < 1 B-Hydroxybutyrate 10/06/17 10/06/17 10/06/17 01:53 01:53 02:46 WBC 6.8 RBC 3.11 L Hgb 9.4 L Hct 30.3 L MCV 97.6 H D MCH 30.2 MCHC 30.9 L RDW 15.6 H Plt Count 266 MPV 8.8 Neut % (Auto) 61.4 Lymph % (Auto) 28.9 [place] % (Auto) 8.7 Eos % (Auto) 0.4 Baso % (Auto) 0.6 Neut # (Auto) 4.2 Lymph # (Auto) 2.0 [place] # (Auto) 0.6 Eos # (Auto) 0.0 Baso # (Auto) 0.0 PT INR APTT pO2 VBG pH VBG pCO2 VBG HCO3 VBG Total CO2 VBG O2 Sat (Calc) VBG Base Excess VBG Potassium Sodium 126 L Chloride 93 L Glucose Lactate Crit Value Called To Crit Value Called By Crit Value Read Back Blood Gas Notified Time Potassium 7.4 H* D Carbon Dioxide 13 L Anion Gap 28 H BUN 59 H Creatinine 2.7 H Est GFR ( Amer) 30 Est GFR (Non-Af Amer) 24 POC Glucose (mg/dL) > 500 H* Random Glucose 1086 H* Calcium 8.6 Phosphorus Magnesium Total Bilirubin 0.3 AST 15 L D ALT 27 Alkaline Phosphatase 102 Total Protein 5.8 L Albumin 3.9 Globulin 2.0 L Albumin/Globulin Ratio 2.0 Venous Blood Potassium Urine Color Urine Clarity Urine pH Ur Specific [place] Urine Protein Urine Glucose (UA) Urine Ketones Urine Blood Urine Nitrate Urine Bilirubin Urine Urobilinogen Ur Leukocyte Esterase Urine WBC (Auto) Urine RBC (Auto) B-Hydroxybutyrate 5.21 H 10/06/17 10/06/17 10/06/17 04:40 04:46 04:46 WBC 7.1 RBC 2.74 L Hgb 8.3 L Hct 25.9 L MCV 94.3 H D MCH 30.4 MCHC 32.2 L RDW 15.4 H Plt Count 239 MPV 8.1 Neut % (Auto) 57.7 Lymph % (Auto) 34.7 [place] % (Auto) 6.7 Eos % (Auto) 0.3 Baso % (Auto) 0.6 Neut # (Auto) 4.1 Lymph # (Auto) 2.5 [place] # (Auto) 0.5 Eos # (Auto) 0.0 Baso # (Auto) 0.0 PT INR APTT pO2 60 H VBG pH 7.17 L* VBG pCO2 35 L VBG HCO3 13.0 VBG Total CO2 13.9 L VBG O2 Sat (Calc) 92.9 H VBG Base Excess -14.8 L VBG Potassium 4.7 Sodium 136.0 136 Chloride 105.0 104 Glucose > 750 H* Lactate 6.6 H* Crit Value Called To Jean Paul gunter/rn Crit Value Called By Stalin burks/rt Crit Value Read Back Y Blood Gas Notified Time 450 Potassium 4.8 Carbon Dioxide 12 L Anion Gap 25 H BUN 52 H Creatinine 2.5 H Est GFR ( Amer) 32 Est GFR (Non-Af Amer) 27 POC Glucose (mg/dL) Random Glucose 722 H* D Calcium 8.8 Phosphorus 3.8 Magnesium 2.6 H Total Bilirubin 0.1 L AST 16 L ALT 26 Alkaline Phosphatase 83 Total Protein 5.4 L Albumin 3.4 L Globulin 2.0 L Albumin/Globulin Ratio 1.7 Venous Blood Potassium 4.7 Urine Color Urine Clarity Urine pH Ur Specific [place] Urine Protein Urine Glucose (UA) Urine Ketones Urine Blood Urine Nitrate Urine Bilirubin Urine Urobilinogen Ur Leukocyte Esterase Urine WBC (Auto) Urine RBC (Auto) B-Hydroxybutyrate 10/06/17 04:46 WBC RBC Hgb Hct MCV MCH MCHC RDW Plt Count MPV Neut % (Auto) Lymph % (Auto) [place] % (Auto) Eos % (Auto) Baso % (Auto) Neut # (Auto) Lymph # (Auto) [place] # (Auto) Eos # (Auto) Baso # (Auto) PT 9.0 L INR 0.8 APTT 27 pO2 VBG pH VBG pCO2 VBG HCO3 VBG Total CO2 VBG O2 Sat (Calc) VBG Base Excess VBG Potassium Sodium Chloride Glucose Lactate Crit Value Called To Crit Value Called By Crit Value Read Back Blood Gas Notified Time Potassium Carbon Dioxide Anion Gap BUN Creatinine Est GFR ( Amer) Est GFR (Non-Af Amer) POC Glucose (mg/dL) Random Glucose Calcium Phosphorus Magnesium Total Bilirubin AST ALT Alkaline Phosphatase Total Protein Albumin Globulin Albumin/Globulin Ratio Venous Blood Potassium Urine Color Urine Clarity Urine pH Ur Specific [place] Urine Protein Urine Glucose (UA) Urine Ketones Urine Blood Urine Nitrate Urine Bilirubin Urine Urobilinogen Ur Leukocyte Esterase Urine WBC (Auto) Urine RBC (Auto) B-Hydroxybutyrate Assessment & Plan - Assessment and Plan (Free Text) Assessment: JORGE L from dehydration Hyperkalemia from above Dehydration likely due to hyperosmolar-ketoacidosis state, IDDM lacticacidosis with maintained pressure due to dehydration, slow metabolism H/o seizure disorder, unclear if patient had event at home H/o CAD, strokes H/o neuropathy Plan: * Admit to icu. * Since patient is dehydrated, hyperosolar, corrected sodium is 148, will give 1 /2 ns after initial bolus * continue insulin drip * hyperkalemia corrected * Metabolic acidosis both ag and nag, should imrprove with insulin, hypotonic fluid, clearance of lactate with hydration * continue depakote * Holding on BP meds due to bp borderline also JORGE L so avoid ACEI * GI/DVT prophylaxis * See orders for detail.
--- NOTE | 2017-10-06 08:22 | RAD ---
Date of service: 10/06/2017 PROCEDURE: CHEST RADIOGRAPH, 1 VIEW HISTORY: Diabetic COMPARISON: 09/12/2017. FINDINGS: LUNGS: The lungs are well inflated and clear. PLEURA: No pneumothorax or pleural fluid seen. CARDIOVASCULAR: Normal. OSSEOUS STRUCTURES: No significant abnormalities. VISUALIZED UPPER ABDOMEN: Normal. OTHER FINDINGS: None. IMPRESSION: No active pulmonary disease.
[2017-10-06 08:30] LABS: ABG ALLEN TEST POS; ARTERIAL BLOOD GAS HCO3 21.9 mmol/L (21-28); ARTERIAL BLOOD GAS PCO2 37 mm/Hg (35-45); ARTERIAL BLOOD GAS PH 7.36 (7.35-7.45); ARTERIAL BLOOD GAS PO2 137 mm/Hg (80-100)
[2017-10-06 08:35] LABS: CALCIUM 8.8 mg/dl (8.6-10.4)
--- NOTE | 2017-10-06 09:02 | CT ---
Date of service: 10/06/2017 PROCEDURE: CT HEAD WITHOUT CONTRAST. HISTORY: Altered mental status COMPARISON: 02/24/2017. TECHNIQUE: Axial computed tomography images were obtained through the head/brain without intravenous contrast. Radiation dose: Total exam DLP = 945.05 mGy-cm. This CT exam was performed using one or more of the following dose reduction techniques: Automated exposure control, adjustment of the mA and/or kV according to patient size, and/or use of iterative reconstruction technique. FINDINGS: HEMORRHAGE: No intracranial hemorrhage. BRAIN: Martinez-white matter differentiation is preserved. There is an old lacunar infarction in the left thalamus. There is also an air old infarction in the right cerebellar hemisphere. There is no mass, mass effect or abnormal extra-axial fluid collection. VENTRICLES: There is moderate age-related global parenchymal volume loss and proportionate enlargement of the ventricles and cortical sulci. CALVARIUM: The skull base and calvarium are normal. PARANASAL SINUSES: Predominantly clear. MASTOID AIR CELLS: Predominantly clear. OTHER FINDINGS: None. IMPRESSION: No acute intracranial abnormality. 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 Moderate age-related global parenchymal volume loss. A preliminary report was provided by [facility].
[2017-10-06] MEDS ORDERED: Insulin Detemir 100 units/ml Vial (Levemir) SC STA (09:37)
[2017-10-06] MEDS ORDERED: Divalproex 500 mg ER Tab PO SCH (10:00)
[2017-10-06] MEDS: Divalproex 500 mg ER Tab PO SCH (10:30)
[2017-10-06] MEDS: (Novolin R) Insulin Human Regular 100 units/ml vial SC SCH ×4 (14:39→20:00)
[2017-10-06 15:55] LABS: CALCIUM 8.5 mg/dl (8.6-10.4)
[2017-10-06] MEDS: Sodium Chloride 0.9% 1,000 ML IV SCH ×2 (16:35→21:29)
[2017-10-06] MEDS ORDERED: Dextrose 50% SYRINGE Inj (50 ml) IV PRN (18:33)
[2017-10-06] MEDS ORDERED: Glucagon Recombinant 1 mg Inj IM PRN (18:33)
[2017-10-06] MEDS ORDERED: Dextrose 5%/0.45% NS 1,000 ML IV SCH (21:45)
[2017-10-06] MEDS: Insulin Detemir 100 units/ml Vial (Levemir) SC SCH (22:11)
[2017-10-06] MEDS: Rosuvastatin Calcium 2.5 mg Tab PO SCH (22:11)
[2017-10-06] MEDS: (Novolog) Insulin Aspart, Recombinant 100 u/ml 10 ml vial SC SCH (22:12)
[2017-10-07] MEDS: (Novolin R) Insulin Human Regular 100 units/ml vial SC SCH ×4 (04:00→12:04)
[2017-10-07 06:27] LABS: BASO # 0.1 K/uL (0.0-0.2); BASO % 0.6 % (0.0-2.0); EOS # 0.2 K/uL (0.0-0.7); EOS % 1.4 % (0.0-4.0); HEMOGLOBIN 9.2 g/dL (12.0-18.0); LYMPH # 1.9 K/uL (1.0-4.3); LYMPH % 15.6 % (20.0-40.0); MEAN CELL VOLUME 89.5 fL (80.0-94.0); MEAN CORPUSCULAR HEMOGLOBIN 30.4 pg (27.0-31.0); MONO # 0.6 K/uL (0.0-0.8); MONO % 4.6 % (0.0-10.0); NEUT # 9.7 K/uL (1.8-7.0); NEUT % 77.8 % (50.0-75.0); RBC 3.03 Mil/uL (4.40-5.90); RED CELL DISTRIBUTION WIDTH 15.6 % (11.5-14.5); WHITE BLOOD COUNT 12.4 K/uL (4.8-10.8)
[2017-10-07 06:44] LABS: ALB/GLOB RATIO 1.3 (1.0-2.1); ALBUMIN 2.9 g/dL (3.5-5.0); ALT/SGPT 29 U/L (21-72); AST/SGOT 21 U/L (17-59); BLOOD UREA NITROGEN 28 mg/dL (9-20); CALCIUM 8.3 mg/dl (8.6-10.4); GFR AFRICAN-AMERICAN > 60; GFR NON-AFRICAN AMERICAN 57
[2017-10-07] MEDS: (Novolog) Insulin Aspart, Recombinant 100 u/ml 10 ml vial SC SCH ×4 (08:49→22:12)
[2017-10-07] MEDS: Insulin Detemir 100 units/ml Vial (Levemir) SC SCH ×2 (09:58→22:09)
[2017-10-07] MEDS: Divalproex 500 mg ER Tab PO SCH (09:58)
--- NOTE | 2017-10-07 14:54 | CARD ---
APPROVED REPORT Date of service: 10/06/2017 EKG Measurement Heart [id number] <Conclusion> Normal sinus rhythm Possible Left atrial enlargement Septal infarct, age undetermined Abnormal ECG
--- NOTE | 2017-10-07 19:51 | CP.PCM.PN ---
Subjective - Date & Time of Evaluation Date of Evaluation: 10/07/17 Time of Evaluation: 15:00 - Subjective Subjective: Hospitalist Progress Note Patient was seen and examined at 3:00 PM 10/07/17 ICU Bed 16 57 year old male who was admitted on 10/06/17 for DKA. Please see Assessment and Plans below. Upon FULL ROS NO dysphagia/odynopahgia NO soreness in throat NO cough NO sinus/nasal congestion NO fever/chills NO muscle aches/pains NO joint pain NO chest pain/palpations NO SOB NO abdominal pain NO n/v/d/c NO burning pain with urination NO FRANCO NO lightheadedness/dizziness NO paresthesias Exam: General: Awake, Alert, He is oriented to person and place. He believes it is 1917 and does not know the month or day and believes it is winter time (this is baseline for this patient compared to when I last saw him in February/March) HEENT: NCA, EOMI, PERRLA, NO cervical/supraclavicular/submandibular lymphadenopathy, NO pharyngeal erythema/exudate, Nasal Turbinates are nonerythematous/nonedematous, Oral Mucosa is moist Cardio: NS1 and NS2, NO M/R/G Resp: CTA B/L, NO R/R/W GI: BSx4, Soft, NT, NO HSM, NO guarding/rebound tenderness Ext: Pulses are strong and equal, Capillary Refill is 2 seconds, NO edema Neuro: CN II through XII are grossly intact 1). DKA in DM 1 Resolved Levemir 10 units SC Q12H Aspart ISS [facility] States that his is the one who administers insulin to him 2). Hyperkalemia Likely secondary to DKA Resolved 3). Hx CAD Echocardiogram 09/12/17 shows LVSF normal with normal EF, NO regional wall abnormalities Plavix 75 mg PO 1x/day Crestor 2.5 mg PO 1x/day ASA 81 mg PO 1x/day Metoprolol XL has been restarted at lower dose of 12.5 mg PO 1x/day with holding parameters 4). JORGE L Likely secondary to DKA Resolved 5). Hx HTN Metoprolol 12.5 mg PO 1x/day Lisinopril 10 mg PO 1x/day restarted as JORGE L resolved 6). Hx Schizophrenia/Bipolar Disorder Depakote 500 mg PO 1x/day Lyrica 75 mg PO TID Abilify 5 mg PO 2x/day restarted (patient is supposed to be on this medication as per review of prior records) 7). Hx Anemia of Chronic Disease HgB/Hct is stable 8). Prophylaxis Pepcid 20 mg PO 1x/day Heparin 5,000 Units SC Q8H SCDs Disposition: patient is stable for transfer out of ICU. [employer] will need to be involved in arranging for home visiting nurse for this patient. Objective - Vital Signs/Intake and Output Vital Signs (last 24 hours): Temp Pulse Resp BP Pulse Ox 98.6 F 76 13 134/69 99 10/07/17 16:00 10/07/17 13:00 10/07/17 13:00 10/07/17 12:10 10/07/17 13:00 Intake and Output: 10/07/17 10/08/17 18:59 06:59 Intake Total 470 Output Total 620 Balance -150 - Medications Medications: Current Medications Aspirin (Ecotrin) 81 mg PO DAILY [facility] Last Admin: 10/07/17 09:58 Dose: 81 mg Clopidogrel Bisulfate (Plavix) 75 mg PO DAILY [facility] Last Admin: 10/07/17 09:58 Dose: 75 mg Dextrose (Dextrose 50% Inj) 0 ml IV STAT PRN; Protocol PRN Reason: Hypoglycemia Protocol Last Admin: 10/06/17 21:58 Dose: 25 ml Dextrose (Glutose 15) 0 gm PO ONCE PRN; Protocol PRN Reason: Hypoglycemia Protocol Divalproex Sodium (Depakote Er) 500 mg PO DAILY [facility] Last Admin: 10/07/17 09:58 Dose: 500 mg Famotidine (Pepcid) 20 mg PO DAILY [facility] Last Admin: 10/07/17 12:03 Dose: 20 mg Glucagon (Glucagen Diagnostic Kit) 0 mg IM STAT PRN; Protocol PRN Reason: Hypoglycemia Protocol Heparin Sodium (Porcine) (Heparin) 5,000 units SC Q8 [facility] Last Admin: 10/07/17 14:02 Dose: 5,000 units Dextrose (Dextrose 5% In Water 1000 Ml) 1,000 mls @ 0 mls/hr IV .Q0M PRN; Protocol; Per Protocol PRN Reason: Hypoglycemia Protocol Insulin Aspart (Novolog) 0 unit SC ACHS [facility] PRN Reason: Protocol Last Admin: 10/07/17 12:03 Dose: 4 u Insulin Detemir (Levemir) 10 unit SC Q12 [facility] Last Admin: 10/07/17 09:58 Dose: 10 u Pregabalin (Lyrica) 75 mg PO TID [facility] Last Admin: 10/07/17 14:02 Dose: 75 mg Rosuvastatin Calcium (Crestor) 2.5 mg PO HS [facility] Last Admin: 10/06/17 22:11 Dose: 2.5 mg - Labs Labs: 10/07/17 06:23 10/07/17 06:22 PT 9.0 SECONDS (9.7-12.2) L 10/06/17 04:46 INR 0.8 10/06/17 04:46 APTT 27 SECONDS (21-34) 10/06/17 04:46
--- NOTE | 2017-10-07 20:44 | CP.CCUPN ---
CCU Subjective - Physician Review Events Since Last Encounter (Free Text): 10/07/17 20:43 Hospitalist Progress Note Patient was seen and examined at 3:00 PM 10/07/17 ICU Bed 16 57 year old male who was admitted on 10/06/17 for DKA. Please see Assessment and Plans below. Upon FULL ROS NO dysphagia/odynopahgia NO soreness in throat NO cough NO sinus/nasal congestion NO fever/chills NO muscle aches/pains NO joint pain NO chest pain/palpations NO SOB NO abdominal pain NO n/v/d/c NO burning pain with urination NO FRANCO NO lightheadedness/dizziness NO paresthesias Exam: General: Awake, Alert, He is oriented to person and place. He believes it is 1917 and does not know the month or day and believes it is winter time (this is baseline for this patient compared to when I last saw him in ) HEENT: NCA, EOMI, PERRLA, NO cervical/supraclavicular/submandibular lymphadenopathy, NO pharyngeal erythema/exudate, Nasal Turbinates are nonerythematous/nonedematous, Oral Mucosa is moist Cardio: NS1 and NS2, NO M/R/G Resp: CTA B/L, NO R/R/W GI: BSx4, Soft, NT, NO HSM, NO guarding/rebound tenderness Ext: Pulses are strong and equal, Capillary Refill is 2 seconds, NO edema Neuro: CN II through XII are grossly intact 1). DKA in DM 1 Resolved Levemir 10 units SC Q12H Aspart ISS [facility] States that his is the one who administers insulin to him 2). Hyperkalemia Likely secondary to DKA Resolved 3). Hx CAD Echocardiogram 09/12/17 shows LVSF normal with normal EF, NO regional wall abnormalities Plavix 75 mg PO 1x/day Crestor 2.5 mg PO 1x/day ASA 81 mg PO 1x/day Metoprolol XL has been restarted at lower dose of 12.5 mg PO 1x/day with holding parameters 4). JORGE L Likely secondary to DKA Resolved 5). Hx HTN Metoprolol 12.5 mg PO 1x/day Lisinopril 10 mg PO 1x/day restarted as JORGE L resolved 6). Hx Schizophrenia/Bipolar Disorder Depakote 500 mg PO 1x/day Lyrica 75 mg PO TID Abilify 5 mg PO 2x/day restarted (patient is supposed to be on this medication as per review of prior records) 7). Hx Anemia of Chronic Disease HgB/Hct is stable 8). Prophylaxis Pepcid 20 mg PO 1x/day Heparin 5,000 Units SC Q8H [facility]CD[facility] transfer to floor. CCU Objective - Vital Signs / Intake & Output Intake and Output (Last 8hrs): Intake & Output 10/07/17 10/07/17 10/07/17 06:59 14:59 22:59 Intake Total 560 470 Output Total 750 620 Balance -190 -150 Weight 144 lb 0.12 oz Intake: Intake, IV Amount 560 350 Right Antecubital 560 350 Oral 120 Output: Urine 750 620 Urine, Voided 750 620 Other: # Voids Urine, Voided 1 # Bowel Movements 0 - Medications Active Medications: Active Medications Generic Name Dose Route Start Last Admin Trade Name Freq PRN Reason Stop Dose Admin Aripiprazole 5 mg 10/08/17 10:00 Abilify PO BID ALIE Aspirin 81 mg 10/06/17 10:00 10/07/17 09:58 Ecotrin PO 81 mg DAILY ALIE Administration Clopidogrel Bisulfate 75 mg 10/06/17 10:00 10/07/17 09:58 Plavix PO 75 mg DAILY ALIE Administration Dextrose 0 ml 10/06/17 18:33 10/06/17 21:58 Dextrose 50% Inj IV 25 ml STAT PRN Administration Hypoglycemia Protocol Protocol Dextrose 0 gm 10/06/17 18:33 Glutose 15 PO ONCE PRN Hypoglycemia Protocol Protocol Divalproex Sodium 500 mg 10/06/17 10:00 10/07/17 09:58 Depakote Er PO 500 mg DAILY ALIE Administration Famotidine 20 mg 10/07/17 11:15 10/07/17 12:03 Pepcid PO 20 mg DAILY ALIE Administration Glucagon 0 mg 10/06/17 18:33 Glucagen Diagnostic Kit IM STAT PRN Hypoglycemia Protocol Protocol Heparin Sodium (Porcine) 5,000 units 10/06/17 14:00 10/07/17 14:02 Heparin SC 5,000 units Q8 ALIE Administration Dextrose 1,000 mls @ 0 mls/hr 10/06/17 18:33 Dextrose 5% In Water 1000 Ml IV .Q0M PRN Hypoglycemia Protocol Protocol Per Protocol Insulin Aspart 0 unit 10/06/17 22:00 10/07/17 12:03 Novolog SC 4 u ACHS ALIE Administration Protocol Insulin Detemir 10 unit 10/06/17 22:00 10/07/17 09:58 Levemir SC 10 u Q12 ALIE Administration Lisinopril 10 mg 10/08/17 10:00 Zestril PO DAILY ALIE Metoprolol Succinate 12.5 mg 10/08/17 10:00 Toprol Xl PO DAILY ALIE Pregabalin 75 mg 10/06/17 10:00 10/07/17 14:02 Lyrica PO 75 mg TID ALIE Administration Rosuvastatin Calcium 2.5 mg 10/06/17 22:00 10/06/17 22:11 Crestor PO 2.5 mg HS ALIE Administration - Patient Studies Lab Studies: Microbiology Studies 10/06/17 02:50 Urine Culture - Final Urine No Growth (<1,000 CFU/ML) 10/06/17 07:29 MRSA Culture (Admit) - Final Nose MRSA NOT DETECTED Lab Studies 10/07/17 10/07/17 10/07/17 Range/Units 16:29 11:10 07:23 WBC (4.8-10.8) K/uL RBC (4.40-5.90) Mil/uL Hgb (12.0-18.0) g/dL Hct (35.0-51.0) % MCV (80.0-94.0) fL MCH (27.0-31.0) pg MCHC (33.0-37.0) g/dL RDW (11.5-14.5) % Plt Count (130-400) K/uL MPV (7.2-11.7) fL Neut % (Auto) (50.0-75.0) % Lymph % (Auto) (20.0-40.0) % [place] % (Auto) (0.0-10.0) % Eos % (Auto) (0.0-4.0) % Baso % (Auto) (0.0-2.0) % Neut # (Auto) (1.8-7.0) K/uL Lymph # (Auto) (1.0-4.3) K/uL [place] # (Auto) (0.0-0.8) K/uL Eos # (Auto) (0.0-0.7) K/uL Baso # (Auto) (0.0-0.2) K/uL Sodium (132-148) mmol/L Potassium (3.6-5.2) mmol/L Chloride (98-107) mmol/L Carbon Dioxide (22-30) mmol/L Anion Gap (10-20) BUN (9-20) mg/dL Creatinine (0.8-1.5) mg/dL Est GFR ( Amer) Est GFR (Non-Af Amer) POC Glucose (mg/dL) 151 H 388 H 338 H (65-110) mg/dL Random Glucose (75-110) mg/dL Calcium (8.6-10.4) mg/dl Phosphorus (2.5-4.5) mg/dL Magnesium (1.6-2.3) mg/dL Total Bilirubin (0.2-1.3) mg/dL AST (17-59) U/L ALT (21-72) U/L Alkaline Phosphatase (38-126) U/L Total Protein (6.3-8.3) g/dL Albumin (3.5-5.0) g/dL Globulin (2.2-3.9) gm/dL Albumin/Globulin Ratio (1.0-2.1) 10/07/17 10/07/17 10/06/17 Range/Units 06:23 06:22 22:13 WBC 12.4 H D (4.8-10.8) K/uL RBC 3.03 L (4.40-5.90) Mil/uL Hgb 9.2 L (12.0-18.0) g/dL Hct 27.2 L (35.0-51.0) % MCV 89.5 D (80.0-94.0) fL MCH 30.4 (27.0-31.0) pg MCHC 34.0 (33.0-37.0) g/dL RDW 15.6 H (11.5-14.5) % Plt Count 246 (130-400) K/uL MPV 8.0 (7.2-11.7) fL Neut % (Auto) 77.8 H (50.0-75.0) % Lymph % (Auto) 15.6 L (20.0-40.0) % [place] % (Auto) 4.6 (0.0-10.0) % Eos % (Auto) 1.4 (0.0-4.0) % Baso % (Auto) 0.6 (0.0-2.0) % Neut # (Auto) 9.7 H (1.8-7.0) K/uL Lymph # (Auto) 1.9 (1.0-4.3) K/uL [place] # (Auto) 0.6 (0.0-0.8) K/uL Eos # (Auto) 0.2 (0.0-0.7) K/uL Baso # (Auto) 0.1 (0.0-0.2) K/uL Sodium 138 (132-148) mmol/L Potassium 4.9 (3.6-5.2) mmol/L Chloride 109 H (98-107) mmol/L Carbon Dioxide 22 (22-30) mmol/L Anion Gap 11 (10-20) BUN 28 H (9-20) mg/dL Creatinine 1.3 (0.8-1.5) mg/dL Est GFR ( Amer) > 60 Est GFR (Non-Af Amer) 57 POC Glucose (mg/dL) 115 H (65-110) mg/dL Random Glucose 261 H (75-110) mg/dL Calcium 8.3 L (8.6-10.4) mg/dl Phosphorus 2.9 (2.5-4.5) mg/dL Magnesium 2.1 (1.6-2.3) mg/dL Total Bilirubin 0.2 (0.2-1.3) mg/dL AST 21 (17-59) U/L ALT 29 (21-72) U/L Alkaline Phosphatase 85 (38-126) U/L Total Protein 5.0 L (6.3-8.3) g/dL Albumin 2.9 L (3.5-5.0) g/dL Globulin 2.2 (2.2-3.9) gm/dL Albumin/Globulin Ratio 1.3 (1.0-2.1) 10/06/17 10/06/17 Range/Units 21:31 21:30 WBC (4.8-10.8) K/uL RBC (4.40-5.90) Mil/uL Hgb (12.0-18.0) g/dL Hct (35.0-51.0) % MCV (80.0-94.0) fL MCH (27.0-31.0) pg MCHC (33.0-37.0) g/dL RDW (11.5-14.5) % Plt Count (130-400) K/uL MPV (7.2-11.7) fL Neut % (Auto) (50.0-75.0) % Lymph % (Auto) (20.0-40.0) % [place] % (Auto) (0.0-10.0) % Eos % (Auto) (0.0-4.0) % Baso % (Auto) (0.0-2.0) % Neut # (Auto) (1.8-7.0) K/uL Lymph # (Auto) (1.0-4.3) K/uL [place] # (Auto) (0.0-0.8) K/uL Eos # (Auto) (0.0-0.7) K/uL Baso # (Auto) (0.0-0.2) K/uL Sodium (132-148) mmol/L Potassium (3.6-5.2) mmol/L Chloride (98-107) mmol/L Carbon Dioxide (22-30) mmol/L Anion Gap (10-20) BUN (9-20) mg/dL Creatinine (0.8-1.5) mg/dL Est GFR ( Amer) Est GFR (Non-Af Amer) POC Glucose (mg/dL) 47 L 47 L (65-110) mg/dL Random Glucose (75-110) mg/dL Calcium (8.6-10.4) mg/dl Phosphorus (2.5-4.5) mg/dL Magnesium (1.6-2.3) mg/dL Total Bilirubin (0.2-1.3) mg/dL AST (17-59) U/L ALT (21-72) U/L Alkaline Phosphatase (38-126) U/L Total Protein (6.3-8.3) g/dL Albumin (3.5-5.0) g/dL Globulin (2.2-3.9) gm/dL Albumin/Globulin Ratio (1.0-2.1) Laboratory Results - last 24 hr 10/06/17 10/06/17 10/06/17 21:30 21:31 22:13 WBC RBC Hgb Hct MCV MCH MCHC RDW Plt Count MPV Neut % (Auto) Lymph % (Auto) [place] % (Auto) Eos % (Auto) Baso % (Auto) Neut # (Auto) Lymph # (Auto) [place] # (Auto) Eos # (Auto) Baso # (Auto) Sodium Potassium Chloride Carbon Dioxide Anion Gap BUN Creatinine Est GFR ( Amer) Est GFR (Non-Af Amer) POC Glucose (mg/dL) 47 L 47 L 115 H Random Glucose Calcium Phosphorus Magnesium Total Bilirubin AST ALT Alkaline Phosphatase Total Protein Albumin Globulin Albumin/Globulin Ratio 10/07/17 10/07/17 10/07/17 06:22 06:23 07:23 WBC 12.4 H D RBC 3.03 L Hgb 9.2 L Hct 27.2 L MCV 89.5 D MCH 30.4 MCHC 34.0 RDW 15.6 H Plt Count 246 MPV 8.0 Neut % (Auto) 77.8 H Lymph % (Auto) 15.6 L [place] % (Auto) 4.6 Eos % (Auto) 1.4 Baso % (Auto) 0.6 Neut # (Auto) 9.7 H Lymph # (Auto) 1.9 [place] # (Auto) 0.6 Eos # (Auto) 0.2 Baso # (Auto) 0.1 Sodium 138 Potassium 4.9 Chloride 109 H Carbon Dioxide 22 Anion Gap 11 BUN 28 H Creatinine 1.3 Est GFR ( Amer) > 60 Est GFR (Non-Af Amer) 57 POC Glucose (mg/dL) 338 H Random Glucose 261 H Calcium 8.3 L Phosphorus 2.9 Magnesium 2.1 Total Bilirubin 0.2 AST 21 ALT 29 Alkaline Phosphatase 85 Total Protein 5.0 L Albumin 2.9 L Globulin 2.2 Albumin/Globulin Ratio 1.3 10/07/17 10/07/17 11:10 16:29 WBC RBC Hgb Hct MCV MCH MCHC RDW Plt Count MPV Neut % (Auto) Lymph % (Auto) [place] % (Auto) Eos % (Auto) Baso % (Auto) Neut # (Auto) Lymph # (Auto) [place] # (Auto) Eos # (Auto) Baso # (Auto) Sodium Potassium Chloride Carbon Dioxide Anion Gap BUN Creatinine Est GFR ( Amer) Est GFR (Non-Af Amer) POC Glucose (mg/dL) 388 H 151 H Random Glucose Calcium Phosphorus Magnesium Total Bilirubin AST ALT Alkaline Phosphatase Total Protein Albumin Globulin Albumin/Globulin Ratio Fingerstick Blood Sugar Results: 115 Critical Care Progress Note - Nutrition Nutrition: Nutrition Category Date Time Status Heart Healthy Diet [DIET] Diets 10/06/17 Lunch Active
[2017-10-07] MEDS: Rosuvastatin Calcium 2.5 mg Tab PO SCH (22:08)
[2017-10-08 07:19] VITALS: RESP 20
[2017-10-08] MEDS: (Novolog) Insulin Aspart, Recombinant 100 u/ml 10 ml vial SC SCH ×4 (07:41→21:45)
[2017-10-08] MEDS ORDERED: Dextrose 50% SYRINGE Inj (50 ml) ONE (07:51)
[2017-10-08 08:54] LABS: ALB/GLOB RATIO 1.5 (1.0-2.1); ALBUMIN 3.4 g/dL (3.5-5.0); ALT/SGPT 27 U/L (21-72); AST/SGOT 28 U/L (17-59); BLOOD UREA NITROGEN 26 mg/dL (9-20); CALCIUM 9.3 mg/dl (8.6-10.4); GFR AFRICAN-AMERICAN > 60; GFR NON-AFRICAN AMERICAN 52
[2017-10-08] MEDS: Metoprolol Succinate 12.5 mg XL Tab PO SCH (09:41)
[2017-10-08] MEDS: Insulin Detemir 100 units/ml Vial (Levemir) SC SCH ×2 (09:42→21:34)
[2017-10-08] MEDS: Divalproex 500 mg ER Tab PO SCH (09:43)
--- NOTE | 2017-10-08 16:35 | CP.PCM.PN ---
<Hanh Garcia - Last Filed: 10/08/17 16:33> Subjective - Date & Time of Evaluation Date of Evaluation: 10/08/17 Time of Evaluation: 07:00 - Subjective Subjective: PGY2- Progress Note for Dr. Wong Patient seen and examined at bedside. Patient denies any pain today. Patient knows he is in [facility]. Patient says the year is 1969. Patient is unable to state the month. Objective - Vital Signs/Intake and Output Vital Signs (last 24 hours): Temp Pulse Resp BP Pulse Ox 98.2 F 74 20 160/89 H 99 10/08/17 15:09 10/08/17 15:09 10/08/17 15:09 10/08/17 15:09 10/08/17 15:09 Intake and Output: 10/08/17 10/08/17 06:59 18:59 Intake Total 220 350 Output Total 650 400 Balance -430 -50 - Medications Medications: Current Medications Aripiprazole (Abilify) 5 mg PO BID [facility] Last Admin: 10/08/17 09:41 Dose: 5 mg Aspirin (Ecotrin) 81 mg PO DAILY [facility] Last Admin: 10/08/17 09:41 Dose: 81 mg Clopidogrel Bisulfate (Plavix) 75 mg PO DAILY [facility] Last Admin: 10/08/17 09:41 Dose: 75 mg Dextrose (Dextrose 50% Inj) 0 ml IV STAT PRN; Protocol PRN Reason: Hypoglycemia Protocol Last Admin: 10/06/17 21:58 Dose: 25 ml Dextrose (Glutose 15) 0 gm PO ONCE PRN; Protocol PRN Reason: Hypoglycemia Protocol Divalproex Sodium (Depakote Er) 500 mg PO DAILY [facility] Last Admin: 10/08/17 09:43 Dose: 500 mg Famotidine (Pepcid) 20 mg PO DAILY [facility] Last Admin: 10/08/17 09:41 Dose: 20 mg Glucagon (Glucagen Diagnostic Kit) 0 mg IM STAT PRN; Protocol PRN Reason: Hypoglycemia Protocol Heparin Sodium (Porcine) (Heparin) 5,000 units SC Q8 [facility] Last Admin: 10/08/17 13:42 Dose: 5,000 units Dextrose (Dextrose 5% In Water 1000 Ml) 1,000 mls @ 0 mls/hr IV .Q0M PRN; Protocol; Per Protocol PRN Reason: Hypoglycemia Protocol Insulin Aspart (Novolog) 0 unit SC [facility] PRN Reason: Protocol Last Admin: 10/08/17 12:13 Dose: 2 u Insulin Detemir (Levemir) 10 unit SC Q12 [facility] Last Admin: 10/08/17 09:42 Dose: 10 u Lisinopril (Zestril) 10 mg PO DAILY [facility] Last Admin: 10/08/17 09:42 Dose: 10 mg Metoprolol Succinate (Toprol Xl) 12.5 mg PO DAILY [facility] Last Admin: 10/08/17 09:41 Dose: 12.5 mg Pregabalin (Lyrica) 75 mg PO TID [facility] Last Admin: 10/08/17 13:42 Dose: 75 mg Rosuvastatin Calcium (Crestor) 2.5 mg PO HS [facility] Last Admin: 10/07/17 22:08 Dose: 2.5 mg - Labs Labs: 10/07/17 06:23 10/08/17 08:01 PT 9.0 SECONDS (9.7-12.2) L 10/06/17 04:46 INR 0.8 10/06/17 04:46 APTT 27 SECONDS (21-34) 10/06/17 04:46 - Constitutional Appears: Non-toxic, No Acute Distress - Head Exam Head Exam: ATRAUMATIC, NORMAL INSPECTION, NORMOCEPHALIC - Eye Exam Eye Exam: EOMI, Normal appearance - Respiratory Exam Respiratory Exam: Clear to Ausculation Bilateral, NORMAL BREATHING PATTERN - Cardiovascular Exam Cardiovascular Exam: REGULAR RHYTHM, RRR, +S1, +S2 - GI/Abdominal Exam GI & Abdominal Exam: Soft, Normal Bowel Sounds. absent: Tenderness - Extremities Exam Extremities Exam: Full ROM, Normal Inspection - Neurological Exam Neurological Exam: Alert, Awake. absent: Oriented x3 - Psychiatric Exam Psychiatric exam: Normal Affect, Normal Mood - Skin Skin Exam: Intact, Normal Color, Warm Assessment and Plan - Assessment and Plan (Free Text) Assessment: DKA in DM I- Resolved Levemir 10 units SC Q12H Aspart ISS [facility] States that his is the one who administers insulin to him Hyperkalemia Likely secondary to DKA Resolved Hx CAD Echocardiogram 09/12/17 shows LVSF normal with normal EF, NO regional wall abnormalities Plavix 75 mg PO 1x/day Crestor 2.5 mg PO 1x/day ASA 81 mg PO 1x/day Metoprolol XL has been restarted at lower dose of 12.5 mg PO 1x/day with holding parameters JORGE L Likely secondary to DKA Resolved HTN Metoprolol 12.5 mg PO 1x/day Lisinopril 10 mg PO 1x/day restarted as JORGE L resolved Schizophrenia/Bipolar Disorder Depakote 500 mg PO 1x/day Lyrica 75 mg PO TID Abilify 5 mg PO 2x/day restarted (patient is supposed to be on this medication as per review of prior records) Hx Anemia of Chronic Disease HgB/Hct is stable Prophylaxis Pepcid 20 mg PO 1x/day Heparin 5,000 Units SC Q8H [facility] Disposition: pt will need visiting nurse Discussed with Dr. Cooney <Arthur Cooney H - Last Filed: 10/08/17 18:40> Objective - Vital Signs/Intake and Output Vital Signs (last 24 hours): Temp Pulse Resp BP Pulse Ox 98.2 F 74 20 160/89 H 99 10/08/17 15:09 10/08/17 15:09 10/08/17 15:09 10/08/17 15:09 10/08/17 15:09 Intake and Output: 10/08/17 10/08/17 06:59 18:59 Intake Total 220 350 Output Total 650 400 Balance -430 -50 - Medications Medications: Current Medications Aripiprazole (Abilify) 5 mg PO BID [facility] Last Admin: 10/08/17 09:41 Dose: 5 mg Aspirin (Ecotrin) 81 mg PO DAILY [facility] Last Admin: 10/08/17 09:41 Dose: 81 mg Clopidogrel Bisulfate (Plavix) 75 mg PO DAILY [facility] Last Admin: 10/08/17 09:41 Dose: 75 mg Dextrose (Dextrose 50% Inj) 0 ml IV STAT PRN; Protocol PRN Reason: Hypoglycemia Protocol Last Admin: 10/06/17 21:58 Dose: 25 ml Dextrose (Glutose 15) 0 gm PO ONCE PRN; Protocol PRN Reason: Hypoglycemia Protocol Divalproex Sodium (Depakote Er) 500 mg PO DAILY [facility] Last Admin: 10/08/17 09:43 Dose: 500 mg Famotidine (Pepcid) 20 mg PO DAILY [facility] Last Admin: 10/08/17 09:41 Dose: 20 mg Glucagon (Glucagen Diagnostic Kit) 0 mg IM STAT PRN; Protocol PRN Reason: Hypoglycemia Protocol Heparin Sodium (Porcine) (Heparin) 5,000 units SC Q8 [facility] Last Admin: 10/08/17 13:42 Dose: 5,000 units Dextrose (Dextrose 5% In Water 1000 Ml) 1,000 mls @ 0 mls/hr IV .Q0M PRN; Protocol; Per Protocol PRN Reason: Hypoglycemia Protocol Insulin Aspart (Novolog) 0 unit SC ACHS [facility] PRN Reason: Protocol Last Admin: 10/08/17 16:30 Dose: 1 u Insulin Detemir (Levemir) 10 unit SC Q12 [facility] Last Admin: 10/08/17 09:42 Dose: 10 u Lisinopril (Zestril) 10 mg PO DAILY [facility] Last Admin: 10/08/17 09:42 Dose: 10 mg Metoprolol Succinate (Toprol Xl) 12.5 mg PO DAILY [facility] Last Admin: 10/08/17 09:41 Dose: 12.5 mg Pregabalin (Lyrica) 75 mg PO TID [facility] Last Admin: 10/08/17 18:08 Dose: 75 mg Rosuvastatin Calcium (Crestor) 2.5 mg PO HS [facility] Last Admin: 10/07/17 22:08 Dose: 2.5 mg - Labs Labs: 10/07/17 06:23 10/08/17 08:01 PT 9.0 SECONDS (9.7-12.2) L 10/06/17 04:46 INR 0.8 10/06/17 04:46 APTT 27 SECONDS (21-34) 10/06/17 04:46 Attending/Attestation - Attestation I have personally seen and examined this patient.: Yes I have fully participated in the care of the patient.: Yes I have reviewed all pertinent clinical information, including history, physical exam and plan: Yes Notes (Text): 10/08/17 18:34 Medical attending: Patient was seen and examined by me. Agree with the above note by the resident. The patient was not in any acute distress when we saw him. He denied chest pain , denied abdominal pain, denied shortness of breath and said he was "fine" It should be mentioned that he has severe dementia and said it is "1970" He clearly is not able to make decision on his own capacity after evaluating the patient. At this moment he remains stable. The patient was in the ICU for DKA - this has happened multiple times in the past. Blood glucoses as well as the serum bicarbs are stable at this time. He is tolerating PO, however when asked what he has been eating he is unable to even recall the meal he had just one or two hours ago [facility]
[2017-10-08] MEDS: Rosuvastatin Calcium 2.5 mg Tab PO SCH (21:33)
--- NOTE | 2017-10-09 07:17 | CP.PCM.PN ---
Subjective - Date & Time of Evaluation Date of Evaluation: 10/09/17 Time of Evaluation: 08:45 - Subjective Subjective: PGY-1 Jerilyn Palacio D.O. Medicine progress note for Dr. Raymond service: Patient was seen and examined this morning. He is sitting upright in a chair next to his bed. He is oriented to person only. He denies pain/discomfort. His speech is somewhat slurred, but this is his baseline. Objective - Vital Signs/Intake and Output Vital Signs (last 24 hours): Temp Pulse Resp BP Pulse Ox 98.5 F 81 20 162/78 H 98 10/08/17 23:50 10/08/17 23:50 10/08/17 23:50 10/08/17 23:50 10/08/17 23:50 Intake and Output: 10/09/17 10/09/17 06:59 18:59 Intake Total 450 Output Total 800 Balance -350 - Medications Medications: Current Medications Aripiprazole (Abilify) 5 mg PO BID [facility] Last Admin: 10/08/17 18:00 Dose: 5 mg Aspirin (Ecotrin) 81 mg PO DAILY [facility] Last Admin: 10/08/17 09:41 Dose: 81 mg Clopidogrel Bisulfate (Plavix) 75 mg PO DAILY [facility] Last Admin: 10/08/17 09:41 Dose: 75 mg Dextrose (Dextrose 50% Inj) 0 ml IV STAT PRN; Protocol PRN Reason: Hypoglycemia Protocol Last Admin: 10/06/17 21:58 Dose: 25 ml Dextrose (Glutose 15) 0 gm PO ONCE PRN; Protocol PRN Reason: Hypoglycemia Protocol Divalproex Sodium (Depakote Er) 500 mg PO DAILY [facility] Last Admin: 10/08/17 09:43 Dose: 500 mg Famotidine (Pepcid) 20 mg PO DAILY [facility] Last Admin: 10/08/17 09:41 Dose: 20 mg Glucagon (Glucagen Diagnostic Kit) 0 mg IM STAT PRN; Protocol PRN Reason: Hypoglycemia Protocol Heparin Sodium (Porcine) (Heparin) 5,000 units SC Q8 [facility] Last Admin: 10/09/17 06:23 Dose: 5,000 units Dextrose (Dextrose 5% In Water 1000 Ml) 1,000 mls @ 0 mls/hr IV .Q0M PRN; Protocol; Per Protocol PRN Reason: Hypoglycemia Protocol Insulin Aspart (Novolog) 0 unit SC ACHS [facility] PRN Reason: Protocol Last Admin: 10/08/17 21:45 Dose: 3 u Insulin Detemir (Levemir) 10 unit SC Q12 [facility] Last Admin: 10/08/17 21:34 Dose: 10 u Lisinopril (Zestril) 10 mg PO DAILY [facility] Last Admin: 10/08/17 09:42 Dose: 10 mg Metoprolol Succinate (Toprol Xl) 12.5 mg PO DAILY [facility] Last Admin: 10/08/17 09:41 Dose: 12.5 mg Pregabalin (Lyrica) 75 mg PO TID [facility] Last Admin: 10/08/17 18:08 Dose: 75 mg Rosuvastatin Calcium (Crestor) 2.5 mg PO HS [facility] Last Admin: 10/08/17 21:33 Dose: 2.5 mg - Labs Labs: 10/07/17 06:23 10/08/17 08:01 PT 9.0 SECONDS (9.7-12.2) L 10/06/17 04:46 INR 0.8 10/06/17 04:46 APTT 27 SECONDS (21-34) 10/06/17 04:46 10/09/17 07:42 10/09/17 07:42 - Constitutional Appears: Well, No Acute Distress, Older Than Stated Age - Head Exam Head Exam: ATRAUMATIC, NORMAL INSPECTION - Eye Exam Eye Exam: EOMI, Normal appearance - ENT Exam ENT Exam: Mucous Membranes Moist - Neck Exam Neck Exam: Normal Inspection - Respiratory Exam Respiratory Exam: Clear to Ausculation Bilateral, NORMAL BREATHING PATTERN - Cardiovascular Exam Cardiovascular Exam: REGULAR RHYTHM. absent: Murmur - GI/Abdominal Exam GI & Abdominal Exam: Soft. absent: Tenderness - Rectal Exam Rectal Exam: Deferred - Extremities Exam Extremities Exam: Full ROM, Normal Inspection - Back Exam Back Exam: NORMAL INSPECTION. absent: tenderness - Neurological Exam Neurological Exam: Alert, Awake. absent: Oriented x3 (person only) - Psychiatric Exam Additional comments: unable to articulate - Skin Skin Exam: Dry, Intact, Normal Color, Warm Assessment and Plan - Assessment and Plan (Free Text) Assessment: Patient is a 57 yo male who presented with DKA. He has been admitted several times in the past with the same presentation (AMS, hyperglycemia). He was initially in the ICU x2 days. Plan: DKA, acute, recurrent, resolved- admins insulin to pt at home, however, she reports he tends to eat sugary drinks/foods at night when she is sleeping - CT head 10/06- no acute pathology - BG 1086 on admission 10/07 - Beta-hydroxybutyrate- 5.21 - BG 193-344 today 10/09 - Accuchecks ACHS - Continue home Levemir 10u SC q12hrs - Hypoglycemia protocol - Insulin sliding scale- low dose Insomnia, chronic per pt's - Start Risperdal 0.5 mg PO qhs Hyperkalemia, acute, resolved- likely secondary to DKA JORGE L, resolved- likely secondary to DKA - Initial Cr 2.7m BUN 59 - Cr 1.5, BUN 30 CAD - Echo (09/12/17): LVSF normal with normal EF, No regional wall abnormalities - Plavix 75 mg PO daily - Crestor 2.5 mg PO daily - ASA 81 mg PO daily - Metoprolol succinate- restarted at lower dose of 12.5 mg PO daily with holding parameters Essential HTN - Metoprolol succinate 12.5 mg PO daily - Lisinopril 10 mg PO daily Schizophrenia vs Bipolar disorder, chronic - Depakote 500 mg PO daily- level subtherapeutic 35.6 - Lyrica 75 mg PO TID - Abilify 5 mg PO BID Anemia of chronic disease, stable - Hgb 10.7 - CBC in AM PT consult IVF: not indicated GI ppx: Pepcid 20 mg PO daily VTE ppx: Heparin 5,000 Units SC Q8H, SCDs Diet: heart healthy Code status: full code Disposition: Patient will be discharged home once visiting home nurse services secured- anticipate tomorrow 10/10.
[2017-10-09] MEDS: (Novolog) Insulin Aspart, Recombinant 100 u/ml 10 ml vial SC SCH ×3 (07:59→17:30)
[2017-10-09 08:11] LABS: BASO % 0.7 % (0.0-2.0); EOS # 0.1 K/uL (0.0-0.7); EOS % 2.3 % (0.0-4.0); HEMOGLOBIN 9.6 g/dL (12.0-18.0); LYMPH # 1.5 K/uL (1.0-4.3); LYMPH % 27.1 % (20.0-40.0); MEAN CELL VOLUME 89.2 fL (80.0-94.0); MEAN CORPUSCULAR HEMOGLOBIN 31.1 pg (27.0-31.0); MEAN CORPUSCULAR HGB CONC 34.9 g/dL (33.0-37.0); MEAN PLATELET VOLUME 7.9 fL (7.2-11.7); MONO # 0.4 K/uL (0.0-0.8); MONO % 7.9 % (0.0-10.0); NEUT # 3.3 K/uL (1.8-7.0); NRBC % 0.1 % (0.0-2.0); RBC 3.09 Mil/uL (4.40-5.90); RED CELL DISTRIBUTION WIDTH 15.5 % (11.5-14.5)
[2017-10-09 08:16] LABS: WHITE BLOOD COUNT 5.4 K/uL (4.8-10.8)
[2017-10-09 08:23] LABS: ALB/GLOB RATIO 1.6 (1.0-2.1); ALBUMIN 3.4 g/dL (3.5-5.0); CALCIUM 9.1 mg/dl (8.6-10.4)
[2017-10-09] MEDS: Metoprolol Succinate 12.5 mg XL Tab PO SCH (09:44)
[2017-10-09] MEDS: Divalproex 500 mg ER Tab PO SCH (09:44)
[2017-10-09] MEDS: Insulin Detemir 100 units/ml Vial (Levemir) SC SCH ×2 (09:45→21:41)
[2017-10-09] MEDS: Rosuvastatin Calcium 2.5 mg Tab PO SCH (21:42)
--- NOTE | 2017-10-10 06:20 | CP.PCM.DIS ---
Provider - Provider Date of Admission: 10/06/17 04:51 Attending physician: Ric Ocasio MD Consults: ICU Time Spent in preparation of Discharge (in minutes): 45 Hospital Course - Lab Results Lab Results: Micro Results 10/07/17 22:32 Nose MRSA Culture - Final MRSA NOT DETECTED 10/06/17 02:50 Urine Urine Culture - Final No Growth (<1,000 CFU/ML) 10/06/17 07:29 Nose MRSA Culture (Admit) - Final MRSA NOT DETECTED Most Recent Lab Values WBC 5.4 K/uL (4.8-10.8) D 10/09/17 07:42 RBC 3.09 Mil/uL (4.40-5.90) L 10/09/17 07:42 Hgb 9.6 g/dL (12.0-18.0) L 10/09/17 07:42 Hct 27.5 % (35.0-51.0) L 10/09/17 07:42 MCV 89.2 fL (80.0-94.0) 10/09/17 07:42 MCH 31.1 pg (27.0-31.0) H 10/09/17 07:42 MCHC 34.9 g/dL (33.0-37.0) 10/09/17 07:42 RDW 15.5 % (11.5-14.5) H 10/09/17 07:42 Plt Count 190 K/uL (130-400) 10/09/17 07:42 MPV 7.9 fL (7.2-11.7) 10/09/17 07:42 Neut % (Auto) 62.0 % (50.0-75.0) 10/09/17 07:42 Lymph % (Auto) 27.1 % (20.0-40.0) 10/09/17 07:42 [place] % (Auto) 7.9 % (0.0-10.0) 10/09/17 07:42 Eos % (Auto) 2.3 % (0.0-4.0) 10/09/17 07:42 Baso % (Auto) 0.7 % (0.0-2.0) 10/09/17 07:42 Neut # (Auto) 3.3 K/uL (1.8-7.0) 10/09/17 07:42 Lymph # (Auto) 1.5 K/uL (1.0-4.3) 10/09/17 07:42 [place] # (Auto) 0.4 K/uL (0.0-0.8) 10/09/17 07:42 Eos # (Auto) 0.1 K/uL (0.0-0.7) 10/09/17 07:42 Baso # (Auto) 0.0 K/uL (0.0-0.2) 10/09/17 07:42 PT 9.0 SECONDS (9.7-12.2) L 10/06/17 04:46 INR 0.8 10/06/17 04:46 APTT 27 SECONDS (21-34) 10/06/17 04:46 Puncture Site Lra 10/06/17 08:22 pCO2 37 mm/Hg (35-45) 10/06/17 08:22 pO2 137 mm/Hg (80-100) H 10/06/17 08:22 HCO3 21.9 mmol/L (21-28) 10/06/17 08:22 ABG pH 7.36 (7.35-7.45) 10/06/17 08:22 ABG Total CO2 22.0 mmol/L (22-28) 10/06/17 08:22 ABG O2 Saturation 99.0 % (95-98) H 10/06/17 08:22 ABG Base Excess -4.0 mmol/L (-2.0-3.0) L 10/06/17 08:22 Artis Test Pos 10/06/17 08:22 ABG Potassium 3.7 mmol/L (3.6-5.2) 10/06/17 08:22 VBG pH 7.17 (7.32-7.43) L* 10/06/17 04:40 VBG pCO2 35 mmHg (40-60) L 10/06/17 04:40 VBG HCO3 13.0 mmol/L 10/06/17 04:40 VBG Total CO2 13.9 mmol/L (22-28) L 10/06/17 04:40 VBG O2 Sat (Calc) 92.9 % (40-65) H 10/06/17 04:40 VBG Base Excess -14.8 mmol/L (0.0-2.0) L 10/06/17 04:40 VBG Potassium 4.7 mmol/L (3.6-5.2) 10/06/17 04:40 A-a O2 Difference 16.0 mm/Hg 10/06/17 08:22 Respiratory Index 0.1 10/06/17 08:22 Sodium 140.0 mmol/l (132-148) 10/06/17 08:22 Chloride 115.0 mmol/L (98-107) H 10/06/17 08:22 Glucose 183 mg/dl (75-110) H 10/06/17 08:22 Lactate 2.4 mmol/L (0.7-2.1) H 10/06/17 08:22 Liter Flow 2.0 10/06/17 08:22 FiO2 28.0 % 10/06/17 08:22 Crit Value Called To Jean Paul gunter/rn 10/06/17 04:40 Crit Value Called By Stalin [email or web address]/rt 10/06/17 04:40 Crit Value Read Back Y 10/06/17 04:40 Blood Gas Notified Time 450 10/06/17 04:40 Sodium 140 mmol/L (132-148) 10/09/17 07:42 Potassium 5.1 mmol/L (3.6-5.2) 10/09/17 07:42 Chloride 105 mmol/L (98-107) 10/09/17 07:42 Carbon Dioxide 25 mmol/L (22-30) 10/09/17 07:42 Anion Gap 15 (10-20) 10/09/17 07:42 BUN 30 mg/dL (9-20) H 10/09/17 07:42 Creatinine 1.5 mg/dL (0.8-1.5) 10/09/17 07:42 Est GFR ( Amer) 58 10/09/17 07:42 Est GFR (Non-Af Amer) 48 10/09/17 07:42 POC Glucose (mg/dL) 287 mg/dL (65-110) H 10/09/17 11:02 Random Glucose 193 mg/dL (75-110) H 10/09/17 07:42 Calcium 9.1 mg/dl (8.6-10.4) 10/09/17 07:42 Phosphorus 3.0 mg/dL (2.5-4.5) 10/09/17 07:42 Magnesium 2.0 mg/dL (1.6-2.3) 10/09/17 07:42 Total Bilirubin 0.4 mg/dL (0.2-1.3) 10/09/17 07:42 AST 19 U/L (17-59) 10/09/17 07:42 ALT 28 U/L (21-72) 10/09/17 07:42 Alkaline Phosphatase 98 U/L (38-126) 10/09/17 07:42 Ammonia < 9 umol/L (9-33) L 10/06/17 07:44 Total Protein 5.5 g/dL (6.3-8.3) L 10/09/17 07:42 Albumin 3.4 g/dL (3.5-5.0) L 10/09/17 07:42 Globulin 2.1 gm/dL (2.2-3.9) L 10/09/17 07:42 Albumin/Globulin Ratio 1.6 (1.0-2.1) 10/09/17 07:42 Arterial Blood Potassium 3.7 mmol/L (3.6-5.2) 10/06/17 08:22 Venous Blood Potassium 4.7 mmol/L (3.6-5.2) 10/06/17 04:40 Urine Color Straw (YELLOW) 10/06/17 01:40 Urine Clarity Clear (Clear) 10/06/17 01:40 Urine pH 5.0 (5.0-8.0) 10/06/17 01:40 Ur Specific [place] 1.021 (1.003-1.030) 10/06/17 01:40 Urine Protein Negative mg/dL (NEGATIVE) 10/06/17 01:40 Urine Glucose (UA) 3+ mg/dL (Normal) H 10/06/17 01:40 Urine Ketones 1+ mg/dL (NEGATIVE) H 10/06/17 01:40 Urine Blood Negative (NEGATIVE) 10/06/17 01:40 Urine Nitrate Negative (NEGATIVE) 10/06/17 01:40 Urine Bilirubin Negative (NEGATIVE) 10/06/17 01:40 Urine Urobilinogen Normal mg/dL (0.2-1.0) 10/06/17 01:40 Ur Leukocyte Esterase Neg William/uL (Negative) 10/06/17 01:40 Urine WBC (Auto) < 1 /hpf (0-5) 10/06/17 01:40 Urine RBC (Auto) < 1 /hpf (0-3) 10/06/17 01:40 Valproic Acid 35.6 ug/mL (50.0-100.0) L 10/06/17 07:44 B-Hydroxybutyrate 5.21 mM (0.02-0.27) H 10/06/17 01:53 Discharge Exam - Head Exam Head Exam: ATRAUMATIC, NORMAL INSPECTION Discharge Plan - Follow Up Plan Condition: SERIOUS Disposition: HOME/ ROUTINE
[2017-10-10] MEDS: (Novolog) Insulin Aspart, Recombinant 100 u/ml 10 ml vial SC SCH ×4 (08:20→21:45)
[2017-10-10] MEDS: Insulin Detemir 100 units/ml Vial (Levemir) SC SCH ×2 (10:02→21:44)
[2017-10-10] MEDS: Divalproex 500 mg ER Tab PO SCH (10:02)
[2017-10-10] MEDS: Metoprolol Succinate 12.5 mg XL Tab PO SCH (10:03)
--- NOTE | 2017-10-10 10:14 | CP.PCM.PN ---
Subjective - Date & Time of Evaluation Date of Evaluation: 10/10/17 - Subjective Subjective: PGY 3 Medicine Progress Note - Dr. Mckinney's service Objective - Vital Signs/Intake and Output Vital Signs (last 24 hours): Temp Pulse Resp BP Pulse Ox 98.3 F 72 20 170/86 H 98 10/10/17 07:33 10/10/17 07:33 10/10/17 07:33 10/10/17 07:33 10/10/17 07:33 Intake and Output: 10/10/17 10/10/17 06:59 18:59 Intake Total 420 Output Total 500 Balance -80 - Medications Medications: Current Medications Aripiprazole (Abilify) 5 mg PO BID [facility] Last Admin: 10/10/17 10:01 Dose: 5 mg Aspirin (Ecotrin) 81 mg PO DAILY [facility] Last Admin: 10/10/17 10:03 Dose: 81 mg Clopidogrel Bisulfate (Plavix) 75 mg PO DAILY [facility] Last Admin: 10/10/17 10:03 Dose: 75 mg Dextrose (Dextrose 50% Inj) 0 ml IV STAT PRN; Protocol PRN Reason: Hypoglycemia Protocol Last Admin: 10/06/17 21:58 Dose: 25 ml Dextrose (Glutose 15) 0 gm PO ONCE PRN; Protocol PRN Reason: Hypoglycemia Protocol Divalproex Sodium (Depakote Er) 500 mg PO DAILY [facility] Last Admin: 10/10/17 10:02 Dose: 500 mg Famotidine (Pepcid) 20 mg PO DAILY [facility] Last Admin: 10/10/17 10:03 Dose: 20 mg Glucagon (Glucagen Diagnostic Kit) 0 mg IM STAT PRN; Protocol PRN Reason: Hypoglycemia Protocol Heparin Sodium (Porcine) (Heparin) 5,000 units SC Q8 [facility] Last Admin: 10/10/17 05:12 Dose: 5,000 units Dextrose (Dextrose 5% In Water 1000 Ml) 1,000 mls @ 0 mls/hr IV .Q0M PRN; Protocol; Per Protocol PRN Reason: Hypoglycemia Protocol Insulin Aspart (Novolog) 0 unit SC ACHS [facility] PRN Reason: Protocol Last Admin: 10/09/17 17:30 Dose: 3 u Insulin Detemir (Levemir) 10 unit SC Q12 [facility] Last Admin: 10/10/17 10:02 Dose: 10 u Lisinopril (Zestril) 10 mg PO DAILY [facility] Last Admin: 10/10/17 10:03 Dose: 10 mg Metoprolol Succinate (Toprol Xl) 12.5 mg PO DAILY [facility] Last Admin: 10/10/17 10:03 Dose: 12.5 mg Pregabalin (Lyrica) 75 mg PO TID [facility] Last Admin: 10/10/17 10:02 Dose: 75 mg Risperidone (Risperdal Tab) 0.5 mg PO [facility] Last Admin: 10/09/17 22:01 Dose: 0.5 mg Rosuvastatin Calcium (Crestor) 2.5 mg PO [facility] Last Admin: 10/09/17 21:42 Dose: 2.5 mg - Labs Labs: 10/09/17 07:42 10/09/17 07:42 PT 9.0 SECONDS (9.7-12.2) L 10/06/17 04:46 INR 0.8 10/06/17 04:46 APTT 27 SECONDS (21-34) 10/06/17 04:46 Assessment and Plan - Assessment and Plan (Free Text) Assessment: DKA Resolved History of noncompliance- late night food habits CT head 10/06- no acute pathology Accuchecks ACHS Continue home Levemir 10u SC q12hrs Hypoglycemia protocol Insulin sliding scale- low dose Anemia of chronic disease Stable at this time Monitor Hgb JORGE L Likely secondary to DKA Improving Monitor CAD Echo (09/12/17): LVSF normal with normal EF, No regional wall abnormalities Plavix 75 mg PO daily Crestor 2.5 mg PO daily ASA 81 mg PO daily Metoprolol succinate- restarted at lower dose of 12.5 mg PO daily with holding parameters HTN Metoprolol Succinate 12.5 mg PO daily Lisinopril 10 mg PO daily Heart Healthy diet Monitor Insomnia On Risperdal 0.5 mg PO nightly Schizophrenia vs Bipolar disorder Depakote 500 mg PO daily- level subtherapeutic 35.6 Lyrica 75 mg PO TID Abilify 5 mg PO BID Prophylactic measure GI ppx: Pepcid 20 mg PO daily VTE ppx: Heparin 5,000 Units SC Q8H, SCDs
[2017-10-10] MEDS ORDERED: Insulin Detemir 100 units/ml Vial (Levemir) SC SCH (10:39)
[2017-10-10] MEDS ORDERED: Metoprolol Succinate 25 mg XL Tab PO SCH (10:40)
[2017-10-10 11:56] LABS: BASO % 0.5 % (0.0-2.0); EOS # 0.2 K/uL (0.0-0.7); HEMOGLOBIN 9.3 g/dL (12.0-18.0); LYMPH % 26.1 % (20.0-40.0); MEAN CELL VOLUME 90.7 fL (80.0-94.0); MEAN CORPUSCULAR HEMOGLOBIN 30.9 pg (27.0-31.0); MEAN CORPUSCULAR HGB CONC 34.1 g/dL (33.0-37.0); MEAN PLATELET VOLUME 8.1 fL (7.2-11.7); MONO # 0.6 K/uL (0.0-0.8); MONO % 8.4 % (0.0-10.0); NEUT # 4.9 K/uL (1.8-7.0); RBC 3.01 Mil/uL (4.40-5.90); RED CELL DISTRIBUTION WIDTH 15.1 % (11.5-14.5); WHITE BLOOD COUNT 7.7 K/uL (4.8-10.8)
[2017-10-10 12:46] LABS: ALB/GLOB RATIO 1.4 (1.0-2.1); ALBUMIN 3.5 g/dL (3.5-5.0); ALT/SGPT 22 U/L (21-72); AST/SGOT 23 U/L (17-59); BLOOD UREA NITROGEN 32 mg/dL (9-20); CALCIUM 8.9 mg/dl (8.6-10.4); GFR AFRICAN-AMERICAN > 60; GFR NON-AFRICAN AMERICAN 52
--- NOTE | 2017-10-10 14:53 | CP.PCM.PN ---
Subjective - Date & Time of Evaluation Date of Evaluation: 10/10/17 Time of Evaluation: 09:20 - Subjective Subjective: PGY-1 Jerilyn Palacio D.O. Medicine progress note for Dr. Ocasio's service: Patient was seen and examined this morning. He is sitting upright in a chair next to his bed, smiling. He is oriented to person only. He denies pain/ discomfort. Objective - Vital Signs/Intake and Output Vital Signs (last 24 hours): Temp Pulse Resp BP Pulse Ox 98.3 F 72 20 170/86 H 98 10/10/17 07:33 10/10/17 07:33 10/10/17 07:33 10/10/17 07:33 10/10/17 07:33 Intake and Output: 10/10/17 10/10/17 06:59 18:59 Intake Total 420 Output Total 500 Balance -80 - Medications Medications: Current Medications Aripiprazole (Abilify) 5 mg PO BID [facility] Last Admin: 10/10/17 10:01 Dose: 5 mg Aspirin (Ecotrin) 81 mg PO DAILY [facility] Last Admin: 10/10/17 10:03 Dose: 81 mg Clopidogrel Bisulfate (Plavix) 75 mg PO DAILY [facility] Last Admin: 10/10/17 10:03 Dose: 75 mg Dextrose (Dextrose 50% Inj) 0 ml IV STAT PRN; Protocol PRN Reason: Hypoglycemia Protocol Last Admin: 10/06/17 21:58 Dose: 25 ml Dextrose (Glutose 15) 0 gm PO ONCE PRN; Protocol PRN Reason: Hypoglycemia Protocol Divalproex Sodium (Depakote Er) 500 mg PO DAILY [facility] Last Admin: 10/10/17 10:02 Dose: 500 mg Famotidine (Pepcid) 20 mg PO DAILY [facility] Last Admin: 10/10/17 10:03 Dose: 20 mg Glucagon (Glucagen Diagnostic Kit) 0 mg IM STAT PRN; Protocol PRN Reason: Hypoglycemia Protocol Heparin Sodium (Porcine) (Heparin) 5,000 units SC Q8 [facility] Last Admin: 10/10/17 14:01 Dose: 5,000 units Dextrose (Dextrose 5% In Water 1000 Ml) 1,000 mls @ 0 mls/hr IV .Q0M PRN; Protocol; Per Protocol PRN Reason: Hypoglycemia Protocol Insulin Aspart (Novolog) 0 unit SC ACHS [facility] PRN Reason: Protocol Last Admin: 10/10/17 11:33 Dose: 12 units Insulin Detemir (Levemir) 12 unit SC Q12 [facility] Lisinopril (Zestril) 20 mg PO DAILY [facility] Metoprolol Succinate (Toprol Xl) 25 mg PO DAILY [facility] Pregabalin (Lyrica) 75 mg PO TID [facility] Last Admin: 10/10/17 14:01 Dose: 75 mg Risperidone (Risperdal Tab) 0.5 mg PO [facility] Last Admin: 10/09/17 22:01 Dose: 0.5 mg Rosuvastatin Calcium (Crestor) 2.5 mg PO HS [facility] Last Admin: 10/09/17 21:42 Dose: 2.5 mg - Labs Labs: 10/10/17 11:48 10/10/17 11:48 PT 9.0 SECONDS (9.7-12.2) L 10/06/17 04:46 INR 0.8 10/06/17 04:46 APTT 27 SECONDS (21-34) 10/06/17 04:46 - Constitutional Appears: Well, Non-toxic, No Acute Distress, Older Than Stated Age, Confused - Head Exam Head Exam: ATRAUMATIC, NORMAL INSPECTION, NORMOCEPHALIC - Eye Exam Eye Exam: EOMI, Normal appearance - ENT Exam ENT Exam: Mucous Membranes Moist - Neck Exam Neck Exam: Normal Inspection - Respiratory Exam Respiratory Exam: Clear to Ausculation Bilateral, NORMAL BREATHING PATTERN - Cardiovascular Exam Cardiovascular Exam: REGULAR RHYTHM. absent: Murmur - GI/Abdominal Exam GI & Abdominal Exam: Soft - Rectal Exam Rectal Exam: Deferred - Extremities Exam Extremities Exam: Normal Inspection. absent: Pedal Edema - Back Exam Back Exam: NORMAL INSPECTION - Neurological Exam Neurological Exam: Alert, Awake. absent: Oriented x3 (person only) - Psychiatric Exam Psychiatric exam: Normal Affect, Normal Mood ("ankita") - Skin Skin Exam: Dry, Intact, Normal Color, Warm Assessment and Plan - Assessment and Plan (Free Text) Assessment: Patient is a 57 yo male who presented with DKA. He has a h/o psych disorder (bipolar vs schizophrenia) and dementia. He has been admitted several times in the past with the same presentation (AMS, hyperglycemia). He was initially in the ICU x2 days. His administers his medications, including insulin, at home. Plan: DKA, acute, recurrent, resolved- admins insulin to pt at home, however, she reports he tends to eat sugary drinks/foods at night when she is sleeping - CT head 10/06- no acute pathology - BG 1086 on admission 10/07 - Beta-hydroxybutyrate- 5.21 - BG 480->500 today 10/10 - Accuchecks ACHS - Increase Levemir to 14u SC q12hrs tonight and tomorrow AM, then Levemir 12u SC q12hrs starting tomorrow night - Hypoglycemia protocol - Insulin sliding scale- low dose while in hospital- once discharged, add Novolog 4u before each meal Essential HTN, chronic - Increase metoprolol succinate to 25 mg PO daily - Increase lisinopril to 20 mg PO daily Insomnia, chronic per pt's - Start Risperdal 0.5 mg PO qhs Hyperkalemia, acute, resolved- likely secondary to DKA - CMP in AM JORGE L, resolved- likely secondary to DKA - CMP in AM CAD, chronic - Echo (09/12/17): LVSF normal with normal EF, No regional wall abnormalities - Plavix 75 mg PO daily - Crestor 2.5 mg PO daily - ASA 81 mg PO daily - Increase metoprolol succinate to 25 mg PO daily Schizophrenia vs Bipolar disorder, chronic - Depakote 500 mg PO daily- level subtherapeutic 35.6 - Lyrica 75 mg PO TID - Abilify 5 mg PO BID - Add Risperdal 0.5 mg PO qhs Anemia of chronic disease, stable - CBC in AM PT consult- rec JORDY or home with services 2 wks 3-5x/wk - cleared for OOB to chair and rolling walker for ambulation IVF: not indicated GI ppx: Pepcid 20 mg PO daily VTE ppx: Heparin 5,000 Units SC Q8H, SCDs Diet: heart healthy Code status: full code Disposition: Patient will be discharged home with visiting nursing services- anticipate tomorrow pending blood glucose stabilization- anticipate tomorrow 10/11.
[2017-10-10] MEDS: Rosuvastatin Calcium 2.5 mg Tab PO SCH (21:44)
[2017-10-11 07:26] LABS: BASO % 0.7 % (0.0-2.0); EOS # 0.3 K/uL (0.0-0.7); HEMOGLOBIN 9.5 g/dL (12.0-18.0); LYMPH # 3.1 K/uL (1.0-4.3); LYMPH % 41.2 % (20.0-40.0); MEAN CELL VOLUME 89.3 fL (80.0-94.0); MEAN CORPUSCULAR HEMOGLOBIN 30.3 pg (27.0-31.0); MEAN CORPUSCULAR HGB CONC 33.9 g/dL (33.0-37.0); MEAN PLATELET VOLUME 8.4 fL (7.2-11.7); MONO # 0.7 K/uL (0.0-0.8); MONO % 8.9 % (0.0-10.0); NEUT # 3.4 K/uL (1.8-7.0); NEUT % 45.2 % (50.0-75.0); RBC 3.12 Mil/uL (4.40-5.90); RED CELL DISTRIBUTION WIDTH 15.3 % (11.5-14.5); WHITE BLOOD COUNT 7.4 K/uL (4.8-10.8)
[2017-10-11 07:41] LABS: ALB/GLOB RATIO 1.4 (1.0-2.1); ALBUMIN 3.7 g/dL (3.5-5.0); CALCIUM 9.5 mg/dl (8.6-10.4)
[2017-10-11] MEDS: (Novolog) Insulin Aspart, Recombinant 100 u/ml 10 ml vial SC SCH ×2 (08:11→12:23)
[2017-10-11 09:08] VITALS: O2SAT 100
[2017-10-11] MEDS: Insulin Detemir 100 units/ml Vial (Levemir) SC SCH (09:56)
[2017-10-11] MEDS: Divalproex 500 mg ER Tab PO SCH (09:57)
--- NOTE | 2017-10-11 13:15 | CP.PCM.DIS ---
<Jerilyn Palacio - Last Filed: 10/11/17 14:31> Provider - Provider Date of Admission: 10/06/17 04:51 Attending physician: Arthur Cooney DO Primary care physician: Dr. Gaona Consults: ICU (Franca) Time Spent in preparation of Discharge (in minutes): 45 Diagnosis - Discharge Diagnosis (1) DKA (diabetic ketoacidoses) Status: Resolved Priority: High Comment: Patient was admitted to ICU, treated for DKA. He has been observed to have multiple admissions due to DKA. Situation is more complicated due to patient's neuropsychiatric history. (2) Dementia Status: Chronic Priority: Medium Comment: This is chronic. He is able to follow very simple one-step commands. However, does not know the date or time or his location. (3) HTN (hypertension) Status: Chronic Priority: Medium Comment: Please continue metoprolol. (4) CAD (coronary artery disease) Status: Chronic Priority: Medium Comment: Currently stable during this hospitalization. Hospital Course - Lab Results Lab Results: Micro Results 10/07/17 22:32 Nose MRSA Culture - Final MRSA NOT DETECTED 10/06/17 02:50 Urine Urine Culture - Final No Growth (<1,000 CFU/ML) 10/06/17 07:29 Nose MRSA Culture (Admit) - Final MRSA NOT DETECTED Most Recent Lab Values WBC 7.4 K/uL (4.8-10.8) 10/11/17 06:51 RBC 3.12 Mil/uL (4.40-5.90) L 10/11/17 06:51 Hgb 9.5 g/dL (12.0-18.0) L 10/11/17 06:51 Hct 27.9 % (35.0-51.0) L 10/11/17 06:51 MCV 89.3 fL (80.0-94.0) 10/11/17 06:51 MCH 30.3 pg (27.0-31.0) 10/11/17 06:51 MCHC 33.9 g/dL (33.0-37.0) 10/11/17 06:51 RDW 15.3 % (11.5-14.5) H 10/11/17 06:51 Plt Count 195 K/uL (130-400) 10/11/17 06:51 MPV 8.4 fL (7.2-11.7) 10/11/17 06:51 Neut % (Auto) 45.2 % (50.0-75.0) L 10/11/17 06:51 Lymph % (Auto) 41.2 % (20.0-40.0) H 10/11/17 06:51 Lander % (Auto) 8.9 % (0.0-10.0) 10/11/17 06:51 Eos % (Auto) 4.0 % (0.0-4.0) 10/11/17 06:51 Baso % (Auto) 0.7 % (0.0-2.0) 10/11/17 06:51 Neut # (Auto) 3.4 K/uL (1.8-7.0) 10/11/17 06:51 Lymph # (Auto) 3.1 K/uL (1.0-4.3) 10/11/17 06:51 Lander # (Auto) 0.7 K/uL (0.0-0.8) 10/11/17 06:51 Eos # (Auto) 0.3 K/uL (0.0-0.7) 10/11/17 06:51 Baso # (Auto) 0.0 K/uL (0.0-0.2) 10/11/17 06:51 PT 9.0 SECONDS (9.7-12.2) L 10/06/17 04:46 INR 0.8 10/06/17 04:46 APTT 27 SECONDS (21-34) 10/06/17 04:46 Puncture Site Lra 10/06/17 08:22 pCO2 37 mm/Hg (35-45) 10/06/17 08:22 pO2 137 mm/Hg (80-100) H 10/06/17 08:22 HCO3 21.9 mmol/L (21-28) 10/06/17 08:22 ABG pH 7.36 (7.35-7.45) 10/06/17 08:22 ABG Total CO2 22.0 mmol/L (22-28) 10/06/17 08:22 ABG O2 Saturation 99.0 % (95-98) H 10/06/17 08:22 ABG Base Excess -4.0 mmol/L (-2.0-3.0) L 10/06/17 08:22 Artis Test Pos 10/06/17 08:22 ABG Potassium 3.7 mmol/L (3.6-5.2) 10/06/17 08:22 VBG pH 7.17 (7.32-7.43) L* 10/06/17 04:40 VBG pCO2 35 mmHg (40-60) L 10/06/17 04:40 VBG HCO3 13.0 mmol/L 10/06/17 04:40 VBG Total CO2 13.9 mmol/L (22-28) L 10/06/17 04:40 VBG O2 Sat (Calc) 92.9 % (40-65) H 10/06/17 04:40 VBG Base Excess -14.8 mmol/L (0.0-2.0) L 10/06/17 04:40 VBG Potassium 4.7 mmol/L (3.6-5.2) 10/06/17 04:40 A-a O2 Difference 16.0 mm/Hg 10/06/17 08:22 Respiratory Index 0.1 10/06/17 08:22 Sodium 140.0 mmol/l (132-148) 10/06/17 08:22 Chloride 115.0 mmol/L (98-107) H 10/06/17 08:22 Glucose 183 mg/dl (75-110) H 10/06/17 08:22 Lactate 2.4 mmol/L (0.7-2.1) H 10/06/17 08:22 Liter Flow 2.0 10/06/17 08:22 FiO2 28.0 % 10/06/17 08:22 Crit Value Called To Jean Paul gunter/rn 10/06/17 04:40 Crit Value Called By Stalin burks/rt 10/06/17 04:40 Crit Value Read Back Y 10/06/17 04:40 Blood Gas Notified Time 450 10/06/17 04:40 Sodium 141 mmol/L (132-148) 10/11/17 06:51 Potassium 5.4 mmol/L (3.6-5.2) H 10/11/17 06:51 Chloride 105 mmol/L (98-107) 10/11/17 06:51 Carbon Dioxide 27 mmol/L (22-30) 10/11/17 06:51 Anion Gap 14 (10-20) 10/11/17 06:51 BUN 41 mg/dL (9-20) H 10/11/17 06:51 Creatinine 1.6 mg/dL (0.8-1.5) H 10/11/17 06:51 Est GFR ( Amer) 54 10/11/17 06:51 Est GFR (Non-Af Amer) 45 10/11/17 06:51 POC Glucose (mg/dL) 266 mg/dL (65-110) H 10/11/17 11:11 Random Glucose 83 mg/dL (75-110) 10/11/17 06:51 Calcium 9.5 mg/dl (8.6-10.4) 10/11/17 06:51 Phosphorus 3.9 mg/dL (2.5-4.5) 10/11/17 06:51 Magnesium 2.0 mg/dL (1.6-2.3) 10/11/17 06:51 Total Bilirubin 0.3 mg/dL (0.2-1.3) 10/11/17 06:51 AST 26 U/L (17-59) 10/11/17 06:51 ALT 25 U/L (21-72) 10/11/17 06:51 Alkaline Phosphatase 94 U/L (38-126) 10/11/17 06:51 Ammonia < 9 umol/L (9-33) L 10/06/17 07:44 Total Protein 6.3 g/dL (6.3-8.3) 10/11/17 06:51 Albumin 3.7 g/dL (3.5-5.0) 10/11/17 06:51 Globulin 2.6 gm/dL (2.2-3.9) 10/11/17 06:51 Albumin/Globulin Ratio 1.4 (1.0-2.1) 10/11/17 06:51 Arterial Blood Potassium 3.7 mmol/L (3.6-5.2) 10/06/17 08:22 Venous Blood Potassium 4.7 mmol/L (3.6-5.2) 10/06/17 04:40 Urine Color Straw (YELLOW) 10/06/17 01:40 Urine Clarity Clear (Clear) 10/06/17 01:40 Urine pH 5.0 (5.0-8.0) 10/06/17 01:40 Ur Specific Chalmers 1.021 (1.003-1.030) 10/06/17 01:40 Urine Protein Negative mg/dL (NEGATIVE) 10/06/17 01:40 Urine Glucose (UA) 3+ mg/dL (Normal) H 10/06/17 01:40 Urine Ketones 1+ mg/dL (NEGATIVE) H 10/06/17 01:40 Urine Blood Negative (NEGATIVE) 10/06/17 01:40 Urine Nitrate Negative (NEGATIVE) 10/06/17 01:40 Urine Bilirubin Negative (NEGATIVE) 10/06/17 01:40 Urine Urobilinogen Normal mg/dL (0.2-1.0) 10/06/17 01:40 Ur Leukocyte Esterase Neg William/uL (Negative) 10/06/17 01:40 Urine WBC (Auto) < 1 /hpf (0-5) 10/06/17 01:40 Urine RBC (Auto) < 1 /hpf (0-3) 10/06/17 01:40 Valproic Acid 35.6 ug/mL (50.0-100.0) L 10/06/17 07:44 B-Hydroxybutyrate 5.21 mM (0.02-0.27) H 10/06/17 01:53 - Hospital Course Hospital Course: This is a 57 yo male who has had multiple hospitalizations due to DKA. As mentioned previously, the patient has had a history of psychiatric disorders and dementia that we suspect is contributing to noncompliance with medication/ insulin. During this hospitalization, he was successfully treated for DKA in the ICU, and then monitored on the medical floor for the next several days. Adjustments were made to his insulin regimen. As mentioned previously, the patient has extensive dementia. He is unable to recall the date or the time. From HPI: "Patient is a poor historian and unable to obtain adequate HPI due to pt's current condition Patient is a 57 year old male with past medical history of uncontrolled diabetes , DKA, CAD, CHF, HTN, anemia, alcohol abuse bipolar, schizophrenia, dementia, who presents to the ED via EMS for hyperglycemia and lethargy. As per EMS reports and nursing staff, patient's noted patient was lethargy with mild altered mental change and elevated blood glucose, therefore she called for an ambulance. As per EMR, patient has had multiple episodes of DKA. Unable to obtain adequate ROS due to patient's current condition." Discharge Exam - Head Exam Head Exam: ATRAUMATIC, NORMAL INSPECTION, NORMOCEPHALIC - Eye Exam Eye Exam: EOMI, Normal appearance - ENT Exam ENT Exam: Mucous Membranes Moist - Neck Exam Neck exam: Normal Inspection - Respiratory Exam Respiratory Exam: Clear to PA & Lateral, NORMAL BREATHING PATTERN - Cardiovascular Exam Cardiovascular Exam: REGULAR RHYTHM, +S1, +S2 - GI/Abdominal Exam GI & Abdominal Exam: Normal Bowel Sounds, Soft, Unremarkable - Rectal Exam Rectal Exam: Deferred - Extremities Exam Extremities exam: full ROM, normal inspection - Back Exam Back exam: NORMAL INSPECTION - Neurological Exam Neurological exam: Alert, Normal Gait Additional comments: only oriented to person, thinks it's 1970 - Psychiatric Exam Psychiatric exam: Flat Affect - Skin Skin Exam: Dry, Intact, Normal Color, Warm Discharge Plan - Discharge Medications Prescriptions: ARIPiprazole [Abilify] 5 mg PO BID #60 tab Insulin Aspart, Recombinant [Novolog] 4 unit SC TID #1 vial Insulin Detemir [Levemir] 14 unit SC Q12 #3 vial Metoprolol Succinate XL [Toprol XL] 25 mg PO DAILY #30 tab risperiDONE [RisperDAL Tab] 0.5 mg PO HS #30 tab - Follow Up Plan Condition: STABLE Disposition: HOME/ ROUTINE Patient education suggested?: Yes Instructions: Diabetes Exchange Diet, Acute Kidney Failure (DC) Additional Instructions: Patient is cleared for discharge as per Dr. Cooney. He will be sent home with visiting nursing services. He will also follow-up with his primary care physician, Dr. Gaona, within one week of discharge. He is to discontinue the following home medications: Haldol Hydralazine Norvasc He is to resume the following home medications: ASA 81 mg daily Plavix 75 mg daily Depakote 500 mg daily Januvia 50 mg daily Pravastatin 20 mg nightly Lyrica 75 mg three times per day He is being discharged with the following new prescriptions: Metoprolol 25 mg daily Abilify 5 mg twice a day Risperdal 0.5 mg nightly He is being discharged on the following insulin regimen: Levemir 12 units twice daily Novolog 4 units after each meal (three times per day), hold if patient does not eat Patient is to return to the ED if symptoms recur or are worsening. This was explained to the patient and his , who understands and agrees. Referrals: Javier Gaona MD [Staff Provider] - <Arthur Cooney - Last Filed: 10/11/17 17:38> Provider - Provider Date of Admission: 10/06/17 04:51 Attending physician: Arthur Cooney DO Hospital Course - Lab Results Lab Results: Micro Results 10/07/17 22:32 Nose MRSA Culture - Final MRSA NOT DETECTED 10/06/17 02:50 Urine Urine Culture - Final No Growth (<1,000 CFU/ML) 10/06/17 07:29 Nose MRSA Culture (Admit) - Final MRSA NOT DETECTED Most Recent Lab Values WBC 7.4 K/uL (4.8-10.8) 10/11/17 06:51 RBC 3.12 Mil/uL (4.40-5.90) L 10/11/17 06:51 Hgb 9.5 g/dL (12.0-18.0) L 10/11/17 06:51 Hct 27.9 % (35.0-51.0) L 10/11/17 06:51 MCV 89.3 fL (80.0-94.0) 10/11/17 06:51 MCH 30.3 pg (27.0-31.0) 10/11/17 06:51 MCHC 33.9 g/dL (33.0-37.0) 10/11/17 06:51 RDW 15.3 % (11.5-14.5) H 10/11/17 06:51 Plt Count 195 K/uL (130-400) 10/11/17 06:51 MPV 8.4 fL (7.2-11.7) 10/11/17 06:51 Neut % (Auto) 45.2 % (50.0-75.0) L 10/11/17 06:51 Lymph % (Auto) 41.2 % (20.0-40.0) H 10/11/17 06:51 Lander % (Auto) 8.9 % (0.0-10.0) 10/11/17 06:51 Eos % (Auto) 4.0 % (0.0-4.0) 08/08/18 06:51 Baso % (Auto) 0.7 % (0.0-2.0) 10/11/17 06:51 Neut # (Auto) 3.4 K/uL (1.8-7.0) 10/11/17 06:51 Lymph # (Auto) 3.1 K/uL (1.0-4.3) 10/11/17 06:51 Lander # (Auto) 0.7 K/uL (0.0-0.8) 10/11/17 06:51 Eos # (Auto) 0.3 K/uL (0.0-0.7) 10/11/17 06:51 Baso # (Auto) 0.0 K/uL (0.0-0.2) 10/11/17 06:51 PT 9.0 SECONDS (9.7-12.2) L 10/06/17 04:46 INR 0.8 10/06/17 04:46 APTT 27 SECONDS (21-34) 10/06/17 04:46 Puncture Site Lra 10/06/17 08:22 pCO2 37 mm/Hg (35-45) 10/06/17 08:22 pO2 137 mm/Hg (80-100) H 10/06/17 08:22 HCO3 21.9 mmol/L (21-28) 10/06/17 08:22 ABG pH 7.36 (7.35-7.45) 10/06/17 08:22 ABG Total CO2 22.0 mmol/L (22-28) 10/06/17 08:22 ABG O2 Saturation 99.0 % (95-98) H 10/06/17 08:22 ABG Base Excess -4.0 mmol/L (-2.0-3.0) L 10/06/17 08:22 Artis Test Pos 10/06/17 08:22 ABG Potassium 3.7 mmol/L (3.6-5.2) 10/06/17 08:22 VBG pH 7.17 (7.32-7.43) L* 10/06/17 04:40 VBG pCO2 35 mmHg (40-60) L 10/06/17 04:40 VBG HCO3 13.0 mmol/L 10/06/17 04:40 VBG Total CO2 13.9 mmol/L (22-28) L 10/06/17 04:40 VBG O2 Sat (Calc) 92.9 % (40-65) H 10/06/17 04:40 VBG Base Excess -14.8 mmol/L (0.0-2.0) L 10/06/17 04:40 VBG Potassium 4.7 mmol/L (3.6-5.2) 10/06/17 04:40 A-a O2 Difference 16.0 mm/Hg 10/06/17 08:22 Respiratory Index 0.1 10/06/17 08:22 Sodium 140.0 mmol/l (132-148) 10/06/17 08:22 Chloride 115.0 mmol/L (98-107) H 10/06/17 08:22 Glucose 183 mg/dl (75-110) H 10/06/17 08:22 Lactate 2.4 mmol/L (0.7-2.1) H 10/06/17 08:22 Liter Flow 2.0 10/06/17 08:22 FiO2 28.0 % 10/06/17 08:22 Crit Value Called To Jean Paul gunter/rn 10/06/17 04:40 Crit Value Called By Stalin burks/rt 10/06/17 04:40 Crit Value Read Back Y 10/06/17 04:40 Blood Gas Notified Time 450 10/06/17 04:40 Sodium 141 mmol/L (132-148) 10/11/17 06:51 Potassium 5.4 mmol/L (3.6-5.2) H 10/11/17 06:51 Chloride 105 mmol/L (98-107) 10/11/17 06:51 Carbon Dioxide 27 mmol/L (22-30) 10/11/17 06:51 Anion Gap 14 (10-20) 10/11/17 06:51 BUN 41 mg/dL (9-20) H 10/11/17 06:51 Creatinine 1.6 mg/dL (0.8-1.5) H 10/11/17 06:51 Est GFR ( Amer) 54 10/11/17 06:51 Est GFR (Non-Af Amer) 45 10/11/17 06:51 POC Glucose (mg/dL) 123 mg/dL (65-110) H 10/11/17 16:30 Random Glucose 83 mg/dL (75-110) 10/11/17 06:51 Calcium 9.5 mg/dl (8.6-10.4) 10/11/17 06:51 Phosphorus 3.9 mg/dL (2.5-4.5) 10/11/17 06:51 Magnesium 2.0 mg/dL (1.6-2.3) 10/11/17 06:51 Total Bilirubin 0.3 mg/dL (0.2-1.3) 10/11/17 06:51 AST 26 U/L (17-59) 10/11/17 06:51 ALT 25 U/L (21-72) 10/11/17 06:51 Alkaline Phosphatase 94 U/L (38-126) 10/11/17 06:51 Ammonia < 9 umol/L (9-33) L 10/06/17 07:44 Total Protein 6.3 g/dL (6.3-8.3) 10/11/17 06:51 Albumin 3.7 g/dL (3.5-5.0) 10/11/17 06:51 Globulin 2.6 gm/dL (2.2-3.9) 10/11/17 06:51 Albumin/Globulin Ratio 1.4 (1.0-2.1) 10/11/17 06:51 Arterial Blood Potassium 3.7 mmol/L (3.6-5.2) 10/06/17 08:22 Venous Blood Potassium 4.7 mmol/L (3.6-5.2) 10/06/17 04:40 Urine Color Straw (YELLOW) 10/06/17 01:40 Urine Clarity Clear (Clear) 10/06/17 01:40 Urine pH 5.0 (5.0-8.0) 10/06/17 01:40 Ur Specific Chalmers 1.021 (1.003-1.030) 10/06/17 01:40 Urine Protein Negative mg/dL (NEGATIVE) 10/06/17 01:40 Urine Glucose (UA) 3+ mg/dL (Normal) H 10/06/17 01:40 Urine Ketones 1+ mg/dL (NEGATIVE) H 10/06/17 01:40 Urine Blood Negative (NEGATIVE) 10/06/17 01:40 Urine Nitrate Negative (NEGATIVE) 10/06/17 01:40 Urine Bilirubin Negative (NEGATIVE) 10/06/17 01:40 Urine Urobilinogen Normal mg/dL (0.2-1.0) 10/06/17 01:40 Ur Leukocyte Esterase Neg William/uL (Negative) 10/06/17 01:40 Urine WBC (Auto) < 1 /hpf (0-5) 10/06/17 01:40 Urine RBC (Auto) < 1 /hpf (0-3) 10/06/17 01:40 Valproic Acid 35.6 ug/mL (50.0-100.0) L 10/06/17 07:44 B-Hydroxybutyrate 5.21 mM (0.02-0.27) H 10/06/17 01:53 Attending/Attestation - Attestation I have personally seen and examined this patient.: Yes I have fully participated in the care of the patient.: Yes I have reviewed all pertinent clinical information, including history, physical exam and plan: Yes Notes (Text): Medical attending: Patient was seen and examined by me. Agree with the above note by the resident The patient was not in acute distress when we saw him. As mentioned previously before the patient has a long history of psychiatric history and so sometimes we suspect this is contributing to his multiple admissions to the hospital with DKA. The patient was awake and alert - he could follow very simple one step commands - however as noted previously he does not know the time, date, or where he is at. He thinks it's still the year 1968 for example. Some adjustments were made to his diabetes medication as well inclduing the amount of insulin as well thank you Arthur Cooney
[2017-10-11 17:10] VITALS: BP 161/78; PULSE 70; TEMP 98.2
== END 2017-10-11 17:08 | disposition home or self-care (01) | DRG 566 ==
LOC: C.ER 01:24 → C.9I 04:51 → C.3T 10-07 22:39
PROVIDERS: ADMIT Hospitalist; ATTEND Hospitalist
DX: E11.01 Type 2 diabetes mellitus with hyperosmolarity with coma (principal); G92 Toxic encephalopathy; N17.9 Acute kidney failure, unspecified; E86.0 Dehydration; E87.5 Hyperkalemia; F03.90 Unspecified dementia, unspecified severity, without behavioral disturbance, psychotic disturbance, mood disturbance, and anxiety; I13.0 Hypertensive heart and chronic kidney disease with heart failure and stage 1 through stage 4 chronic kidney disease, or unspecified chronic kidney disease; N18.9 Chronic kidney disease, unspecified; I50.9 Heart failure, unspecified; F20.9 Schizophrenia, unspecified; D63.8 Anemia in other chronic diseases classified elsewhere; G40.909 Epilepsy, unspecified, not intractable, without status epilepticus; I25.2 Old myocardial infarction; I25.10 Atherosclerotic heart disease of native coronary artery without angina pectoris; Z79.4 Long term (current) use of insulin; F17.210 Nicotine dependence, cigarettes, uncomplicated

== ENCOUNTER 2017-11-08 12:52 | Inpatient (IN) | payer OTHER ==
[2017-11-08 13:05] VITALS: BMI 24.2
[2017-11-08] MEDS ORDERED: Sodium Chloride 0.9% 1,000 ML ONE ×2 (13:20→18:41)
[2017-11-08] MEDS ORDERED: (Novolin R) Insulin Human Regular 100 units/ml vial SC ONE (13:43)
[2017-11-08] MEDS ORDERED: Sodium Chloride 0.9% 1,000 ML IV ONE ×3 (13:43→15:28)
[2017-11-08 14:07] LABS: BASO # 0.1 K/uL (0.0-0.2); BASO % 0.8 % (0.0-2.0); EOS % 0.4 % (0.0-4.0); HEMOGLOBIN 9.9 g/dL (12.0-18.0); LYMPH # 1.2 K/uL (1.0-4.3); LYMPH % 15.6 % (20.0-40.0); MEAN CORPUSCULAR HEMOGLOBIN 31.4 pg (27.0-31.0); MEAN CORPUSCULAR HGB CONC 31.9 g/dL (33.0-37.0); MEAN PLATELET VOLUME 9.2 fL (7.2-11.7); MONO # 0.3 K/uL (0.0-0.8); MONO % 3.5 % (0.0-10.0); NEUT # 6.3 K/uL (1.8-7.0); NEUT % 79.7 % (50.0-75.0); RBC 3.17 Mil/uL (4.40-5.90); RED CELL DISTRIBUTION WIDTH 15.6 % (11.5-14.5); WHITE BLOOD COUNT 7.9 K/uL (4.8-10.8)
[2017-11-08 14:11] LABS: MEAN CELL VOLUME 98.5 fL (80.0-94.0)
[2017-11-08] MEDS ORDERED: (Novolin R) Insulin Human Regular 100 units/ml vial ONE (14:30)
--- NOTE | 2017-11-08 14:31 | C.PDOC ---
History Of Present Illness 57-year-old male, whose PMHx includes Insulin Dependent Diabetes Mellitus, presents to the ED for evaluation of his blood sugar level. Patient underwent hospital admission last month for DKA. Patient receives insulin on a daily basis. However, his at-home accucheck machine has been malfunctioning and family did not want to give patient insulin without a reading today. Patient was found to have blood sugar level greater than 500 in triage. Patient denies fever, chills, nausea, vomiting at this time. Time Seen by Provider: 11/08/17 13:40 Chief Complaint (Nursing): High Blood Sugar History Per: Patient History/Exam Limitations: no limitations Onset/Duration Of Symptoms: Hrs Current Symptoms Are (Timing): Still Present Current Diabetic Medications: Insulin Causative (Exacerbating) Factor(s): Missed Taking Medication Associated Infectious Symptoms: denies: Nausea, Vomiting Additional History Per: Patient Past Medical History Reviewed: Historical Data, Nursing Documentation, Vital Signs Vital Signs: Last Vital Signs Temp 98.2 F 11/08/17 15:07 Pulse 82 11/08/17 16:27 Resp 14 11/08/17 16:27 BP 136/66 11/08/17 16:27 Pulse Ox 97 11/08/17 16:43 - Medical History PMH: Anemia, Anxiety, Bipolar Disorder, CAD, CHF, Dementia, Depression, Diabetes (DKA), Fractures (Skull), HTN, Schizophrenia Denies: Hepatitis, HIV, Kidney Stones, Chronic Kidney Disease, Seizures, Sexually Transmitted Disease - [facility] Procedures INSERTION OF ENDOTRACHEAL AIRWAY INTO TRACHEA, VIA OPENING (12/06/14) INTRODUCTION OF SERUM/TOX/VACCINE INTO MUSCLE, PERC APPROACH (11/26/16) OCCUPATIONAL THERAPY (06/01/14) PHYSICAL THERAPY NEC (06/01/14) RESPIRATORY VENTILATION, 24-96 CONSECUTIVE HOURS (12/06/14) VACCINATION NEC (06/15/14) Family History: States: Unknown Family Hx - Social History Hx Tobacco Use: Yes Hx Alcohol Use: No Hx Substance Use: No - Immunization History Hx Tetanus Toxoid Vaccination: No Hx Influenza Vaccination: No Hx Pneumococcal Vaccination: No Review Of Systems Constitutional: Positive for: Other Physical Exam - Physical Exam Appears: Non-toxic, No Acute Distress Skin: Normal Color, Warm, Dry Head: Atraumatic, Normacephalic Eye(s): bilateral: Normal Inspection Oral Mucosa: Dry, Other (ketotic odor noted ) Neck: Supple Chest: Symmetrical, No Deformity, No Tenderness Cardiovascular: Rhythm Regular, No Murmur Respiratory: Normal Breath Sounds, No Rales, No Rhonchi, No Wheezing Extremity: Normal ROM, Capillary Refill (less than 2 seconds ) Neurological/Psych: Oriented x3, Normal Speech, Normal Cognition ED Course And Treatment - Laboratory Results Result Diagrams: 11/08/17 14:04 11/08/17 15:18 Lab Interpretation: Abnormal (Glucose >500, HCO3 8, Anion Gap 35, BUN 60, Cr 2.2 , pH 7.11) O2 Sat by Pulse Oximetry: 97 (on RA) Pulse Ox Interpretation: Normal Progress Note: Bloodwork and urinalysis ordered and reviewed. Insulin IV blous and drip and IV Fluids given. As glucose levels dropped IV fluid change to D5NS. Reevaluation Time: 16:37 Reassessment Condition: Improved - Physician Consult Information Time Consulting Physician Contacted: 16:37 Physician Contacted: Robbie Benitez Jr. Outcome Of Conversation: Patient to be admitted for DKA on insulin drip. Dr Bryant accepts patient to ICU Disposition - Disposition Disposition: HOSPITALIZED Disposition Time: 19:51 Condition: IMPROVED - POA Present On Arrival: Poor Glycemic Control - Clinical Impression Clinical Impression: DKA (diabetic ketoacidoses) - Scribe Statement The provider has reviewed the documentation as recorded by the Scribe (Roxana Wong) Provider Attestation: All medical record entries made by the Scribe were at my direction and personally dictated by me. I have reviewed the chart and agree that the record accurately reflects my personal performance of the history, physical exam, medical decision making, and the department course for this patient. I have also personally directed, reviewed, and agree with the discharge instructions and disposition.
[2017-11-08 14:32] LABS: VENOUS BLOOD GAS BASE EXCESS -20.5 mmol/L (0.0-2.0); VENOUS BLOOD GAS PCO2 23 mmHg (40-60); VENOUS BLOOD GAS PO2 53 mm/Hg (30-55); VENOUS BLOOD PH 7.11 (7.32-7.43)
[2017-11-08] MEDS ORDERED: Insulin Human Regular 100 UNIT in Sodium Chloride 0.9% 99 ML IV STA ×2 (15:28→20:21)
[2017-11-08 16:18] LABS: ALB/GLOB RATIO 1.6 (1.0-2.1); ALBUMIN 3.3 g/dL (3.5-5.0); CALCIUM 8.6 mg/dl (8.6-10.4)
[2017-11-08 18:32] LABS: URINE BACTERIA RARE (<OCC); URINE BILIRUBIN NEGATIVE (NEGATIVE); URINE BLOOD NEGATIVE (NEGATIVE); URINE CLARITY Clear (Clear); URINE COLOR Straw (YELLOW); URINE GLUCOSE (UA) 3+ mg/dL (Normal); URINE LEUKOCYTE ESTERASE NEG Leu/uL (Negative); URINE PROTEIN NEGATIVE (NEGATIVE); URINE UROBILINOGEN NORMAL mg/dL (0.2-1.0)
--- NOTE | 2017-11-08 19:39 | CP.PCM.CON ---
History of Present Illness - History of Present Illness History of Present Illness: Attending: Dr Benitez Reason for Consult: Critical care Management Chief Complaint: Altered mental status The Patient was seen and examined in the ED. No family member present HPI: The Patient is a poor historian. The hx is obtained from the patient and after review of the medical records. This is a 57 years old male with hx of Dementia, Anemia, CHF and DM II last admitted one month ago for DKA. He was lethargic at home and found to have elevated blood glucose. The family did not administer Insulin because the Accucheck machine had malfunctioned. In the ED his Blood Glucose was greater than 500mg/dl. No fever, nausea, vomits, dizziness nor headaches. No abdominal pain, dysuria nor urinary frequency. PMH: Anemia, Anxiety and Depression; Bipolar Disorder, CAD s/p [place]; CHF, Dementia; Diabetes II(DKA), Fractures (Skull), HTN, Schizophrenia; Seizure PSH: Metal plate in head, s/p Skull Fracture SH: No illegal drug use; Light smoker; No Alcohol use; Live with family FH: State: No known family hx Allergies: NKDA Medication: Reviewed Review of Systems - Review of Systems Systems not reviewed;Unavailable: Dementia Review of Systems: Review of system is limited as the patient is a poor historian and has dementia Past Patient History - Infectious Disease Hx of Infectious Diseases: None - Tetanus Immunizations Tetanus Immunization: Unknown - Past Medical History & Family History Past Medical History?: Yes - Past Social History Smoking Status: Light Smoker < 10 Cigarettes Daily Chewing Tobacco Use: No Cigar Use: No Alcohol: None Drugs: Denies Home Situation {Lives}: With Family - CARDIAC Hx Congestive Heart Failure: Yes Hx Hypertension: Yes - PULMONARY Hx Respiratory Disorders: No Hx Tuberculosis: No - NEUROLOGICAL Hx Dementia: Yes Hx Seizures: No - HEENT Hx HEENT Problems: No - RENAL Hx Chronic Kidney Disease: No Hx Kidney Stones: No - ENDOCRINE/METABOLIC Hx Diabetes Mellitus Type 2: Yes - HEMATOLOGICAL/ONCOLOGICAL Hx Anemia: Yes Hx Human Immunodeficiency Virus (HIV): No - INTEGUMENTARY Hx Dermatological Problems: No - MUSCULOSKELETAL/RHEUMATOLOGICAL Hx Fractures: Yes (Skull) - GASTROINTESTINAL Hx Gastrointestinal Disorders: Yes HX Swallowing Problems: Yes - GENITOURINARY/GYNECOLOGICAL Hx Sexually Transmitted Disorders: No - PSYCHIATRIC Hx Anxiety: Yes Hx Bipolar Disorder: Yes Hx Depression: Yes Hx Schizophrenia: Yes Hx Substance Use: No - SURGICAL HISTORY Hx Surgeries: Yes Other/Comment: metal plates in head (skull fx) - ANESTHESIA Hx Anesthesia: Yes Hx Anesthesia Reactions: No Hx Malignant Hyperthermia: No Meds Allergies/Adverse Reactions: Allergies Allergy/AdvReac Type Severity Reaction Status Date / Time No Known Allergies Allergy Verified 11/08/17 12:58 - Medications Medications: Current Medications Insulin Human Regular 100 unit (/ Sodium Chloride) 100 mls @ 2 mls/hr IV .Q24H STA Stop: 11/09/17 15:27 Last Admin: 11/08/17 16:23 Dose: 2 mls/hr Sodium Chloride (Sodium Chloride 0.9%) 1,000 mls @ 100 mls/hr IV .Q10H ONE Stop: 11/09/17 01:27 Last Admin: 11/08/17 16:23 Dose: 100 mls/hr Physical Exam - Constitutional Appears: No Acute Distress - Head Exam Head Exam: ATRAUMATIC, NORMAL INSPECTION, NORMOCEPHALIC - Eye Exam Eye Exam: EOMI, Normal appearance Pupil Exam: NORMAL ACCOMODATION, PERRL - ENT Exam ENT Exam: Mucous Membranes Dry, Normal External Ear Exam Additional comments: Continuous chewing with some smacking of the lips - Neck Exam Neck exam: Positive for: Full Rom, Normal Inspection - Respiratory Exam Respiratory Exam: Clear to Auscultation Bilateral. absent: Rales, Rhonchi, Wheezes - Cardiovascular Exam Cardiovascular Exam: REGULAR RHYTHM, +S1, +S2, Systolic Murmur - GI/Abdominal Exam GI & Abdominal Exam: Normal Bowel Sounds, Soft. absent: Mass, Organomegaly, Tenderness - Rectal Exam Rectal Exam: Deferred - Extremities Exam Extremities exam: Positive for: full ROM, normal inspection. Negative for: calf tenderness - Back Exam Back exam: NORMAL INSPECTION. absent: CVA tenderness (L), CVA tenderness (R) - Neurological Exam Neurological exam: Alert, CN II-XII Intact, Oriented x3, Reflexes Normal - Psychiatric Exam Psychiatric exam: Normal Affect, Normal Mood - Skin Skin Exam: Dry, Intact, Normal Color, Warm Results - Vital Signs Recent Vital Signs: Last Vital Signs Temp 98.2 F 11/08/17 15:07 Pulse 82 11/08/17 16:27 Resp 14 11/08/17 16:27 BP 136/66 11/08/17 16:27 Pulse Ox 97 11/08/17 16:43 - Labs Result Diagrams: 11/08/17 14:04 11/08/17 21:46 Labs: Laboratory Results - last 24 hr 11/08/17 11/08/17 11/08/17 12:56 14:04 14:27 WBC 7.9 RBC 3.17 L Hgb 9.9 L Hct 31.2 L MCV 98.5 H D MCH 31.4 H MCHC 31.9 L RDW 15.6 H Plt Count 203 MPV 9.2 Neut % (Auto) 79.7 H Lymph % (Auto) 15.6 L Wirt % (Auto) 3.5 Eos % (Auto) 0.4 Baso % (Auto) 0.8 Neut # (Auto) 6.3 Lymph # (Auto) 1.2 Wirt # (Auto) 0.3 Eos # (Auto) 0.0 Baso # (Auto) 0.1 pO2 53 VBG pH 7.11 L* VBG pCO2 23 L VBG HCO3 8.3 VBG Total CO2 8.0 L VBG O2 Sat (Calc) 85.5 H VBG Base Excess -20.5 L VBG Potassium 5.5 H Sodium 132.0 Chloride 90.0 L Glucose > 750 H* D Lactate 8.9 H* Crit Value Called To Er nurse valdez Crit Value Called By Ty morse Crit Value Read Back Y Blood Gas Notified Time 1432 Potassium Carbon Dioxide Anion Gap BUN Creatinine Est GFR ( Amer) Est GFR (Non-Af Amer) POC Glucose (mg/dL) > 500 H* Random Glucose Calcium Total Bilirubin AST ALT Alkaline Phosphatase Total Protein Albumin Globulin Albumin/Globulin Ratio Venous Blood Potassium 5.5 H Urine Color Urine Clarity Urine pH Ur Specific [place] Urine Protein Urine Glucose (UA) Urine Ketones Urine Blood Urine Nitrate Urine Bilirubin Urine Urobilinogen Ur Leukocyte Esterase Urine WBC (Auto) Urine RBC (Auto) Urine Bacteria 11/08/17 11/08/17 11/08/17 14:45 15:18 15:38 WBC RBC Hgb Hct MCV MCH MCHC RDW Plt Count MPV Neut % (Auto) Lymph % (Auto) Wirt % (Auto) Eos % (Auto) Baso % (Auto) Neut # (Auto) Lymph # (Auto) Wirt # (Auto) Eos # (Auto) Baso # (Auto) pO2 VBG pH VBG pCO2 VBG HCO3 VBG Total CO2 VBG O2 Sat (Calc) VBG Base Excess VBG Potassium Sodium 137 Chloride 99 Glucose Lactate Crit Value Called To Crit Value Called By Crit Value Read Back Blood Gas Notified Time Potassium 4.8 Carbon Dioxide 8 L* D Anion Gap 35 H BUN 60 H Creatinine 2.2 H Est GFR ( Amer) 37 Est GFR (Non-Af Amer) 31 POC Glucose (mg/dL) > 500 H* 375 H Random Glucose 496 H* D Calcium 8.6 Total Bilirubin 0.2 AST 33 ALT 32 Alkaline Phosphatase 70 Total Protein 5.3 L Albumin 3.3 L Globulin 2.1 L Albumin/Globulin Ratio 1.6 Venous Blood Potassium Urine Color Urine Clarity Urine pH Ur Specific [place] Urine Protein Urine Glucose (UA) Urine Ketones Urine Blood Urine Nitrate Urine Bilirubin Urine Urobilinogen Ur Leukocyte Esterase Urine WBC (Auto) Urine RBC (Auto) Urine Bacteria 11/08/17 11/08/17 18:19 19:22 WBC RBC Hgb Hct MCV MCH MCHC RDW Plt Count MPV Neut % (Auto) Lymph % (Auto) Wirt % (Auto) Eos % (Auto) Baso % (Auto) Neut # (Auto) Lymph # (Auto) Wirt # (Auto) Eos # (Auto) Baso # (Auto) pO2 VBG pH VBG pCO2 VBG HCO3 VBG Total CO2 VBG O2 Sat (Calc) VBG Base Excess VBG Potassium Sodium Chloride Glucose Lactate Crit Value Called To Crit Value Called By Crit Value Read Back Blood Gas Notified Time Potassium Carbon Dioxide Anion Gap BUN Creatinine Est GFR ( Amer) Est GFR (Non-Af Amer) POC Glucose (mg/dL) 112 H Random Glucose Calcium Total Bilirubin AST ALT Alkaline Phosphatase Total Protein Albumin Globulin Albumin/Globulin Ratio Venous Blood Potassium Urine Color Straw Urine Clarity Clear Urine pH 5.0 Ur Specific [place] 1.016 Urine Protein Negative Urine Glucose (UA) 3+ H Urine Ketones 2+ H Urine Blood Negative Urine Nitrate Negative Urine Bilirubin Negative Urine Urobilinogen Normal Ur Leukocyte Esterase Neg Urine WBC (Auto) < 1 Urine RBC (Auto) < 1 Urine Bacteria Rare Assessment & Plan - Assessment and Plan (Free Text) Assessment: #. DM II with DKA #. Acute Renal Failure #. Anemia #. HTN #. CAD #. Dementia #. Bipolar Plan: 57 years old male with hx of Dementia, Anemia, CHF and DM II last admitted one month ago for DKA. He was lethargic at home and found to have elevated blood glucose. In the ED his Blood Glucose was greater than 500mg/dl. #. DM II with DKA - IV Insulin Drip on "DKA protocol - IV Fluids NS. Change to D5/NS when Blood Glucose drops below 250mg/dl - Accucheck Q1Hour - Replace Potassium, Magnesium and Phosphorous if necessary - Follow Electrolytes - HbA1c 9.9 on 09/13/17 #. Acute Renal Failure - IV Fluids - Follow Renal labs #. Anemia - Iron panel, B12 and Folate normal on 09/13/17 - Follow Hb #. HTN - Toprol - Hold Zestril until the renal labs have improved #. CAD - ASA/Pravachol #. Dementia/ Bipolar/Anxiety and Depression/ Schizophrenia - Riaperdal/Depakote/Abilify #. DVT Prophylaxis with Lovenox #. Code Status: Full - Date & Time Date: 11/08/17 Time: 19:38
[2017-11-08] MEDS: Dextrose 5%/0.9% NS 1,000 ML IV ONE ×2 (19:40→23:07)
[2017-11-08] MEDS ORDERED: Dextrose 50% SYRINGE Inj (50 ml) IV STA (21:22)
[2017-11-08] MEDS ORDERED: Dextrose 50% SYRINGE Inj (50 ml) ONE (21:26)
[2017-11-08 22:08] LABS: CALCIUM 8.2 mg/dl (8.6-10.4)
--- NOTE | 2017-11-08 22:22 | CP.PCM.HP ---
History of Present Illness - History of Present Illness History of Present Illness: PGY2 Medicine H+P for Dr. Benitez Patient is a poor historian and unable to provide an adequate HPI. No family member present. HPI obtained from EMR. Patient is a 57 year old male with past medical history of uncontrolled diabetes, DKA, CAD, CHF, HTN, anemia, alcohol abuse bipolar, schizophrenia, dementia, was brought to the emergency department by family for lethargy. Patient was recently admitted for DKA one month ago. Per ED note, patient's family reported a malfunctioning glucometer so they decided not to give patient his insulin today. Upon arrival, his blood glucose was >500. Patient has no complaints and states he does not know why he is in the hospital. Denies fevers, chills, nausea, vomiting, diarrhea, constipation, chest pain, shortness of breath, abdominal pain, dysuria, urinary frequency, numbness or tinlging. Following patient's information as per EMR PMD: Jimenez PMHx: Uncontrolled diabetes, DKA, CAD, CHF, HTN, anemia, alcohol abuse bipolar, schizophrenia, dementia, CAD, CHF, HTN, anemia PSHx: Unable to obtain FHx: Unable to obtain Medications: Januvia 50mg PO QD, ASA 81mg PO QD, Lisinopril 20mg PO QD, Haldol 2mg PO, Norvasc 5mg PO QD, Pravastatin 20mg PO HS, Ambien 10mg PO HS, Hydralazine 50mg PO QD, Lyrica 75mg PO QD, Plavix 75mg PO QD, Depakote 500mg PO QD Allergies: NKDA Social Hx: Lives with , No noted use of tobacco, ETOH and illicit drugs Present on Admission - Present on Admission Any Indicators Present on Admission: Yes History of Uncontrolled Diabetes: Yes Review of Systems - Review of Systems All systems: reviewed and no additional remarkable complaints except - Constitutional Constitutional: As Per HPI - EENT Eyes: As Per HPI Nose/Mouth/Throat: As Per HPI - Cardiovascular Cardiovascular: As Per HPI - Respiratory Respiratory: As Per HPI - Gastrointestinal Gastrointestinal: As Per HPI - Genitourinary Genitourinary: As Per HPI - Musculoskeletal Musculoskeletal: As Per HPI - Integumentary Integumentary: As Per HPI - Neurological Neurological: As Per HPI - Psychiatric Psychiatric: As Per HPI - Endocrine Endocrine: As Per HPI - Hematologic/Lymphatic Hematologic: As Per HPI Past Patient History - Infectious Disease Hx of Infectious Diseases: None - Tetanus Immunizations Tetanus Immunization: Unknown - Past Medical History & Family History Past Medical History?: Yes - Past Social History Smoking Status: Never Smoked - CARDIAC Hx Congestive Heart Failure: Yes Hx Hypertension: Yes - PULMONARY Hx Respiratory Disorders: No Hx Tuberculosis: No - NEUROLOGICAL Hx Dementia: Yes Hx Seizures: No - HEENT Hx HEENT Problems: No - RENAL Hx Chronic Kidney Disease: No Hx Kidney Stones: No - ENDOCRINE/METABOLIC Hx Diabetes Mellitus Type 2: Yes - HEMATOLOGICAL/ONCOLOGICAL Hx Anemia: Yes Hx Human Immunodeficiency Virus (HIV): No - INTEGUMENTARY Hx Dermatological Problems: No - MUSCULOSKELETAL/RHEUMATOLOGICAL Hx Fractures: Yes (Skull) - GASTROINTESTINAL Hx Gastrointestinal Disorders: Yes HX Swallowing Problems: Yes - GENITOURINARY/GYNECOLOGICAL Hx Sexually Transmitted Disorders: No - PSYCHIATRIC Hx Anxiety: Yes Hx Bipolar Disorder: Yes Hx Depression: Yes Hx Schizophrenia: Yes Hx Substance Use: No - SURGICAL HISTORY Hx Surgeries: Yes Other/Comment: metal plates in head (skull fx) - ANESTHESIA Hx Anesthesia: Yes Hx Anesthesia Reactions: No Hx Malignant Hyperthermia: No Meds Allergies/Adverse Reactions: Allergies Allergy/AdvReac Type Severity Reaction Status Date / Time No Known Allergies Allergy Verified 11/08/17 12:58 Physical Exam - Constitutional Appears: No Acute Distress, Chronically Ill - Head Exam Head Exam: ATRAUMATIC, NORMOCEPHALIC - Eye Exam Eye Exam: EOMI, Normal appearance, PERRL Pupil Exam: NORMAL ACCOMODATION, PERRL - ENT Exam ENT Exam: Mucous Membranes Moist Additional comments: lip smacking - Neck Exam Neck exam: Negative for: Lymphadenopathy - Respiratory Exam Respiratory Exam: Clear to Auscultation Bilateral, NORMAL BREATHING PATTERN. absent: Accessory Muscle Use, Rales, Rhonchi, Wheezes, Respiratory Distress - Cardiovascular Exam Cardiovascular Exam: REGULAR RHYTHM, +S1, +S2 - GI/Abdominal Exam GI & Abdominal Exam: Soft. absent: Distended, Firm, Guarding, Rigid, Tenderness - Extremities Exam Extremities exam: Positive for: pedal pulses present. Negative for: calf tenderness, pedal edema - Neurological Exam Neurological exam: Alert, CN II-XII Intact, Oriented x3 - Psychiatric Exam Psychiatric exam: Normal Affect, Normal Mood - Skin Skin Exam: Dry, Warm Results - Vital Signs Recent Vital Signs: Last Vital Signs Temp 98.2 F 11/08/17 21:50 Pulse 68 11/08/17 21:50 Resp 16 11/08/17 21:50 BP 144/69 11/08/17 21:50 Pulse Ox 100 11/08/17 21:50 - Labs Result Diagrams: 11/08/17 14:04 11/08/17 21:46 Labs: Laboratory Results - last 24 hr 11/08/17 11/08/17 11/08/17 12:56 14:04 14:27 WBC 7.9 RBC 3.17 L Hgb 9.9 L Hct 31.2 L MCV 98.5 H D MCH 31.4 H MCHC 31.9 L RDW 15.6 H Plt Count 203 MPV 9.2 Neut % (Auto) 79.7 H Lymph % (Auto) 15.6 L Rhea % (Auto) 3.5 Eos % (Auto) 0.4 Baso % (Auto) 0.8 Neut # (Auto) 6.3 Lymph # (Auto) 1.2 Rhea # (Auto) 0.3 Eos # (Auto) 0.0 Baso # (Auto) 0.1 pO2 53 VBG pH 7.11 L* VBG pCO2 23 L VBG HCO3 8.3 VBG Total CO2 8.0 L VBG O2 Sat (Calc) 85.5 H VBG Base Excess -20.5 L VBG Potassium 5.5 H Sodium 132.0 Chloride 90.0 L Glucose > 750 H* D Lactate 8.9 H* Crit Value Called To Er nurse valdez Crit Value Called By Ty rt Crit Value Read Back Y Blood Gas Notified Time 1432 Potassium Carbon Dioxide Anion Gap BUN Creatinine Est GFR ( Amer) Est GFR (Non-Af Amer) POC Glucose (mg/dL) > 500 H* Random Glucose Calcium Phosphorus Magnesium Total Bilirubin AST ALT Alkaline Phosphatase Total Protein Albumin Globulin Albumin/Globulin Ratio Venous Blood Potassium 5.5 H Urine Color Urine Clarity Urine pH Ur Specific [place] Urine Protein Urine Glucose (UA) Urine Ketones Urine Blood Urine Nitrate Urine Bilirubin Urine Urobilinogen Ur Leukocyte Esterase Urine WBC (Auto) Urine RBC (Auto) Urine Bacteria 11/08/17 11/08/17 11/08/17 14:45 15:18 15:38 WBC RBC Hgb Hct MCV MCH MCHC RDW Plt Count MPV Neut % (Auto) Lymph % (Auto) Rhea % (Auto) Eos % (Auto) Baso % (Auto) Neut # (Auto) Lymph # (Auto) Rhea # (Auto) Eos # (Auto) Baso # (Auto) pO2 VBG pH VBG pCO2 VBG HCO3 VBG Total CO2 VBG O2 Sat (Calc) VBG Base Excess VBG Potassium Sodium 137 Chloride 99 Glucose Lactate Crit Value Called To Crit Value Called By Crit Value Read Back Blood Gas Notified Time Potassium 4.8 Carbon Dioxide 8 L* D Anion Gap 35 H BUN 60 H Creatinine 2.2 H Est GFR ( Amer) 37 Est GFR (Non-Af Amer) 31 POC Glucose (mg/dL) > 500 H* 375 H Random Glucose 496 H* D Calcium 8.6 Phosphorus Magnesium Total Bilirubin 0.2 AST 33 ALT 32 Alkaline Phosphatase 70 Total Protein 5.3 L Albumin 3.3 L Globulin 2.1 L Albumin/Globulin Ratio 1.6 Venous Blood Potassium Urine Color Urine Clarity Urine pH Ur Specific [place] Urine Protein Urine Glucose (UA) Urine Ketones Urine Blood Urine Nitrate Urine Bilirubin Urine Urobilinogen Ur Leukocyte Esterase Urine WBC (Auto) Urine RBC (Auto) Urine Bacteria 11/08/17 11/08/17 11/08/17 18:19 19:22 21:46 WBC RBC Hgb Hct MCV MCH MCHC RDW Plt Count MPV Neut % (Auto) Lymph % (Auto) Rhea % (Auto) Eos % (Auto) Baso % (Auto) Neut # (Auto) Lymph # (Auto) Rhea # (Auto) Eos # (Auto) Baso # (Auto) pO2 VBG pH VBG pCO2 VBG HCO3 VBG Total CO2 VBG O2 Sat (Calc) VBG Base Excess VBG Potassium Sodium 136 Chloride 106 Glucose Lactate Crit Value Called To Crit Value Called By Crit Value Read Back Blood Gas Notified Time Potassium 4.6 Carbon Dioxide 20 L Anion Gap 15 BUN 52 H Creatinine 1.5 Est GFR ( Amer) 58 Est GFR (Non-Af Amer) 48 POC Glucose (mg/dL) 112 H Random Glucose 150 H Calcium 8.2 L Phosphorus 3.4 Magnesium 2.0 Total Bilirubin AST ALT Alkaline Phosphatase Total Protein Albumin Globulin Albumin/Globulin Ratio Venous Blood Potassium Urine Color Straw Urine Clarity Clear Urine pH 5.0 Ur Specific [place] 1.016 Urine Protein Negative Urine Glucose (UA) 3+ H Urine Ketones 2+ H Urine Blood Negative Urine Nitrate Negative Urine Bilirubin Negative Urine Urobilinogen Normal Ur Leukocyte Esterase Neg Urine WBC (Auto) < 1 Urine RBC (Auto) < 1 Urine Bacteria Rare Assessment & Plan - Assessment and Plan (Free Text) Plan: (1) DKA (diabetic ketoacidoses) Assessment and Plan: Critical Care consulted * admission to ICU * management per ICU HgbA1C (09/13/17): 9.9 VBG: pH 7.11, Lactate 8.9, Glucose >750 Management: * Titratable insulin drip * D5/NS @ 150mls/hr * Accuchecks (2) Prophylactic Care Assessment and Plan: Lovenox 30mg SC daily Case discussed with Dr. Eli Queen Michael PGY2
[2017-11-08] MEDS ORDERED: Dextrose 5%/0.9% NS 1,000 ML IV ONE (23:13)
[2017-11-09 04:42] LABS: BLOOD UREA NITROGEN 45 mg/dL (9-20); CALCIUM 8.4 mg/dl (8.6-10.4); GFR NON-AFRICAN AMERICAN 57
[2017-11-09] MEDS ORDERED: Dextrose 5%/0.9% NS 1,000 ML IV ONE (06:00)
[2017-11-09 09:06] LABS: BLOOD UREA NITROGEN 43 mg/dL (9-20); CALCIUM 8.5 mg/dl (8.6-10.4); GFR NON-AFRICAN AMERICAN 57
[2017-11-09] MEDS: Enoxaparin 30 mg Syringe SC SCH (10:13)
[2017-11-09] MEDS: Insulin Detemir 100 units/ml Vial (Levemir) SC SCH ×2 (10:47→22:17)
[2017-11-09] MEDS: (Novolog) Insulin Aspart, Recombinant 100 u/ml 10 ml vial SC SCH ×2 (12:11→17:22)
--- NOTE | 2017-11-09 13:05 | CP.CCUPN ---
<James Madrigal - Last Filed: 11/09/17 14:21> CCU Subjective - Physician Review Subjective (Free Text): Critical care progress note: Patient seen and examined at bedside. No acute events overnight. The patient's baseline is unclear however the patient states that he has no complaints at this time. 12 point review of systems performed however limited due to patients mental status. CCU Objective - Vital Signs / Intake & Output Vital Signs (Last 4 hours): Vital Signs Pulse Resp BP Pulse Ox 11/09/17 12:00 76 18 100 11/09/17 11:50 132/66 11/09/17 10:50 73 12 163/73 H 100 11/09/17 09:50 71 10 L 147/73 Intake and Output (Last 8hrs): Intake & Output 11/08/17 11/09/17 11/09/17 22:59 06:59 14:59 Intake Total 1215 463 Output Total 200 300 Balance 1015 163 Weight 144 lb 2.917 oz Intake: IV 6 11 Intake, IV Amount 1209 452 right AC #1port 1200 450 right AC #2 port 9 2 Output: Urine 200 300 Urine, Voided 200 300 Other: # Voids Urine, Voided 1 # Bowel Movements 1 - Physical Exam Head: Positive for: Atraumatic, Normocephalic Pupils: Positive for: PERRL Extroacular Muscles: Positive for: EOMI Conjunctiva: Positive for: Normal Mouth: Positive for: Moist Mucous Membranes Respiratory/Chest: Positive for: Clear to Auscultation, Good Air Exchange. Negative for: Respiratory Distress, Accessory Muscle Use, Wheezes, Rales Cardiovascular: Positive for: Regular Rate and Rhythm, Normal S1, S2 Abdomen: Positive for: Normal Bowel Sounds. Negative for: Tenderness, Distention Upper Extremity: Positive for: Normal Inspection. Negative for: Cyanosis, Edema Lower Extremity: Positive for: Normal Inspection. Negative for: Edema, CALF TENDERNESS Neurological: Positive for: GCS=15, CN II-XII Intact. Negative for: Speech Normal - Medications Active Medications: Active Medications Generic Name Dose Route Start Last Admin Trade Name Freq PRN Reason Stop Dose Admin Enoxaparin Sodium 30 mg 11/09/17 10:00 11/09/17 10:13 Lovenox SC 30 mg DAILY ALIE Administration Insulin Human Regular 100 unit 100 mls @ 2 mls/hr 11/08/17 20:21 11/09/17 12: 11 / Sodium Chloride IV 11/09/17 15:27 0 units/hr .Q24H STA 0 mls/hr Protocol Titration Insulin Aspart 4 unit 11/09/17 11:30 11/09/17 12:11 Novolog SC Not Given AC ALIE Insulin Detemir 14 unit 11/09/17 10:30 11/09/17 10:47 Levemir SC 14 units Q12 ALIE Administration - Patient Studies Lab Studies: Lab Studies 11/09/17 11/09/17 11/09/17 Range/Units 12:56 12:09 11:16 WBC (4.8-10.8) K/uL RBC (4.40-5.90) Mil/uL Hgb (12.0-18.0) g/dL Hct (35.0-51.0) % MCV (80.0-94.0) fL MCH (27.0-31.0) pg MCHC (33.0-37.0) g/dL RDW (11.5-14.5) % Plt Count (130-400) K/uL MPV (7.2-11.7) fL Neut % (Auto) (50.0-75.0) % Lymph % (Auto) (20.0-40.0) % [place] % (Auto) (0.0-10.0) % Eos % (Auto) (0.0-4.0) % Baso % (Auto) (0.0-2.0) % Neut # (Auto) (1.8-7.0) K/uL Lymph # (Auto) (1.0-4.3) K/uL [place] # (Auto) (0.0-0.8) K/uL Eos # (Auto) (0.0-0.7) K/uL Baso # (Auto) (0.0-0.2) K/uL pO2 (30-55) mm/Hg VBG pH (7.32-7.43) VBG pCO2 (40-60) mmHg VBG HCO3 mmol/L VBG Total CO2 (22-28) mmol/L VBG O2 Sat (Calc) (40-65) % VBG Base Excess (0.0-2.0) mmol/L VBG Potassium (3.6-5.2) mmol/L Sodium (132-148) mmol/l Chloride (98-107) mmol/L Glucose (75-110) mg/dl Lactate (0.7-2.1) mmol/L Crit Value Called To Crit Value Called By Crit Value Read Back Blood Gas Notified Time Potassium (3.6-5.2) mmol/L Carbon Dioxide (22-30) mmol/L Anion Gap (10-20) BUN (9-20) mg/dL Creatinine (0.8-1.5) mg/dL Est GFR ( Amer) Est GFR (Non-Af Amer) POC Glucose (mg/dL) 131 H 118 H 166 H (65-110) mg/dL Random Glucose (75-110) mg/dL Lactic Acid (0.7-2.1) mmol/L Calcium (8.6-10.4) mg/dl Phosphorus (2.5-4.5) mg/dL Magnesium (1.6-2.3) mg/dL Total Bilirubin (0.2-1.3) mg/dL AST (17-59) U/L ALT (21-72) U/L Alkaline Phosphatase (38-126) U/L Total Protein (6.3-8.3) g/dL Albumin (3.5-5.0) g/dL Globulin (2.2-3.9) gm/dL Albumin/Globulin Ratio (1.0-2.1) Venous Blood Potassium (3.6-5.2) mmol/L Urine Color (YELLOW) Urine Clarity (Clear) Urine pH (5.0-8.0) Ur Specific [place] (1.003-1.030) Urine Protein (NEGATIVE) mg/dL Urine Glucose (UA) (Normal) mg/dL Urine Ketones (NEGATIVE) mg/dL Urine Blood (NEGATIVE) Urine Nitrate (NEGATIVE) Urine Bilirubin (NEGATIVE) Urine Urobilinogen (0.2-1.0) mg/dL Ur Leukocyte Esterase (Negative) William/uL Urine WBC (Auto) (0-5) /hpf Urine RBC (Auto) (0-3) /hpf Urine Bacteria (<OCC) 11/09/17 11/09/17 11/09/17 Range/Units 09:59 08:58 08:43 WBC (4.8-10.8) K/uL RBC (4.40-5.90) Mil/uL Hgb (12.0-18.0) g/dL Hct (35.0-51.0) % MCV (80.0-94.0) fL MCH (27.0-31.0) pg MCHC (33.0-37.0) g/dL RDW (11.5-14.5) % Plt Count (130-400) K/uL MPV (7.2-11.7) fL Neut % (Auto) (50.0-75.0) % Lymph % (Auto) (20.0-40.0) % [place] % (Auto) (0.0-10.0) % Eos % (Auto) (0.0-4.0) % Baso % (Auto) (0.0-2.0) % Neut # (Auto) (1.8-7.0) K/uL Lymph # (Auto) (1.0-4.3) K/uL [place] # (Auto) (0.0-0.8) K/uL Eos # (Auto) (0.0-0.7) K/uL Baso # (Auto) (0.0-0.2) K/uL pO2 (30-55) mm/Hg VBG pH (7.32-7.43) VBG pCO2 (40-60) mmHg VBG HCO3 mmol/L VBG Total CO2 (22-28) mmol/L VBG O2 Sat (Calc) (40-65) % VBG Base Excess (0.0-2.0) mmol/L VBG Potassium (3.6-5.2) mmol/L Sodium 139 (132-148) mmol/l Chloride 110 H (98-107) mmol/L Glucose (75-110) mg/dl Lactate (0.7-2.1) mmol/L Crit Value Called To Crit Value Called By Crit Value Read Back Blood Gas Notified Time Potassium 4.4 (3.6-5.2) mmol/L Carbon Dioxide 21 L (22-30) mmol/L Anion Gap 12 (10-20) BUN 43 H (9-20) mg/dL Creatinine 1.3 (0.8-1.5) mg/dL Est GFR ( Amer) > 60 Est GFR (Non-Af Amer) 57 POC Glucose (mg/dL) 246 H 184 H (65-110) mg/dL Random Glucose 136 H (75-110) mg/dL Lactic Acid (0.7-2.1) mmol/L Calcium 8.5 L (8.6-10.4) mg/dl Phosphorus (2.5-4.5) mg/dL Magnesium (1.6-2.3) mg/dL Total Bilirubin (0.2-1.3) mg/dL AST (17-59) U/L ALT (21-72) U/L Alkaline Phosphatase (38-126) U/L Total Protein (6.3-8.3) g/dL Albumin (3.5-5.0) g/dL Globulin (2.2-3.9) gm/dL Albumin/Globulin Ratio (1.0-2.1) Venous Blood Potassium (3.6-5.2) mmol/L Urine Color (YELLOW) Urine Clarity (Clear) Urine pH (5.0-8.0) Ur Specific [place] (1.003-1.030) Urine Protein (NEGATIVE) mg/dL Urine Glucose (UA) (Normal) mg/dL Urine Ketones (NEGATIVE) mg/dL Urine Blood (NEGATIVE) Urine Nitrate (NEGATIVE) Urine Bilirubin (NEGATIVE) Urine Urobilinogen (0.2-1.0) mg/dL Ur Leukocyte Esterase (Negative) William/uL Urine WBC (Auto) (0-5) /hpf Urine RBC (Auto) (0-3) /hpf Urine Bacteria (<OCC) 11/09/17 11/09/17 11/09/17 Range/Units 08:14 06:56 06:01 WBC (4.8-10.8) K/uL RBC (4.40-5.90) Mil/uL Hgb (12.0-18.0) g/dL Hct (35.0-51.0) % MCV (80.0-94.0) fL MCH (27.0-31.0) pg MCHC (33.0-37.0) g/dL RDW (11.5-14.5) % Plt Count (130-400) K/uL MPV (7.2-11.7) fL Neut % (Auto) (50.0-75.0) % Lymph % (Auto) (20.0-40.0) % [place] % (Auto) (0.0-10.0) % Eos % (Auto) (0.0-4.0) % Baso % (Auto) (0.0-2.0) % Neut # (Auto) (1.8-7.0) K/uL Lymph # (Auto) (1.0-4.3) K/uL [place] # (Auto) (0.0-0.8) K/uL Eos # (Auto) (0.0-0.7) K/uL Baso # (Auto) (0.0-0.2) K/uL pO2 (30-55) mm/Hg VBG pH (7.32-7.43) VBG pCO2 (40-60) mmHg VBG HCO3 mmol/L VBG Total CO2 (22-28) mmol/L VBG O2 Sat (Calc) (40-65) % VBG Base Excess (0.0-2.0) mmol/L VBG Potassium (3.6-5.2) mmol/L Sodium (132-148) mmol/l Chloride (98-107) mmol/L Glucose (75-110) mg/dl Lactate (0.7-2.1) mmol/L Crit Value Called To Crit Value Called By Crit Value Read Back Blood Gas Notified Time Potassium (3.6-5.2) mmol/L Carbon Dioxide (22-30) mmol/L Anion Gap (10-20) BUN (9-20) mg/dL Creatinine (0.8-1.5) mg/dL Est GFR ( Amer) Est GFR (Non-Af Amer) POC Glucose (mg/dL) 124 H 122 H 160 H (65-110) mg/dL Random Glucose (75-110) mg/dL Lactic Acid (0.7-2.1) mmol/L Calcium (8.6-10.4) mg/dl Phosphorus (2.5-4.5) mg/dL Magnesium (1.6-2.3) mg/dL Total Bilirubin (0.2-1.3) mg/dL AST (17-59) U/L ALT (21-72) U/L Alkaline Phosphatase (38-126) U/L Total Protein (6.3-8.3) g/dL Albumin (3.5-5.0) g/dL Globulin (2.2-3.9) gm/dL Albumin/Globulin Ratio (1.0-2.1) Venous Blood Potassium (3.6-5.2) mmol/L Urine Color (YELLOW) Urine Clarity (Clear) Urine pH (5.0-8.0) Ur Specific [place] (1.003-1.030) Urine Protein (NEGATIVE) mg/dL Urine Glucose (UA) (Normal) mg/dL Urine Ketones (NEGATIVE) mg/dL Urine Blood (NEGATIVE) Urine Nitrate (NEGATIVE) Urine Bilirubin (NEGATIVE) Urine Urobilinogen (0.2-1.0) mg/dL Ur Leukocyte Esterase (Negative) William/uL Urine WBC (Auto) (0-5) /hpf Urine RBC (Auto) (0-3) /hpf Urine Bacteria (<OCC) 11/09/17 11/09/17 11/09/17 Range/Units 04:55 04:41 04:25 WBC (4.8-10.8) K/uL RBC (4.40-5.90) Mil/uL Hgb (12.0-18.0) g/dL Hct (35.0-51.0) % MCV (80.0-94.0) fL MCH (27.0-31.0) pg MCHC (33.0-37.0) g/dL RDW (11.5-14.5) % Plt Count (130-400) K/uL MPV (7.2-11.7) fL Neut % (Auto) (50.0-75.0) % Lymph % (Auto) (20.0-40.0) % [place] % (Auto) (0.0-10.0) % Eos % (Auto) (0.0-4.0) % Baso % (Auto) (0.0-2.0) % Neut # (Auto) (1.8-7.0) K/uL Lymph # (Auto) (1.0-4.3) K/uL [place] # (Auto) (0.0-0.8) K/uL Eos # (Auto) (0.0-0.7) K/uL Baso # (Auto) (0.0-0.2) K/uL pO2 (30-55) mm/Hg VBG pH (7.32-7.43) VBG pCO2 (40-60) mmHg VBG HCO3 mmol/L VBG Total CO2 (22-28) mmol/L VBG O2 Sat (Calc) (40-65) % VBG Base Excess (0.0-2.0) mmol/L VBG Potassium (3.6-5.2) mmol/L Sodium 138 (132-148) mmol/l Chloride 111 H (98-107) mmol/L Glucose (75-110) mg/dl Lactate (0.7-2.1) mmol/L Crit Value Called To Crit Value Called By Crit Value Read Back Blood Gas Notified Time Potassium 4.3 (3.6-5.2) mmol/L Carbon Dioxide 21 L (22-30) mmol/L Anion Gap 10 (10-20) BUN 45 H (9-20) mg/dL Creatinine 1.3 (0.8-1.5) mg/dL Est GFR ( Amer) > 60 Est GFR (Non-Af Amer) 57 POC Glucose (mg/dL) 167 H (65-110) mg/dL Random Glucose 114 H (75-110) mg/dL Lactic Acid 2.8 H (0.7-2.1) mmol/L Calcium 8.4 L (8.6-10.4) mg/dl Phosphorus (2.5-4.5) mg/dL Magnesium (1.6-2.3) mg/dL Total Bilirubin (0.2-1.3) mg/dL AST (17-59) U/L ALT (21-72) U/L Alkaline Phosphatase (38-126) U/L Total Protein (6.3-8.3) g/dL Albumin (3.5-5.0) g/dL Globulin (2.2-3.9) gm/dL Albumin/Globulin Ratio (1.0-2.1) Venous Blood Potassium (3.6-5.2) mmol/L Urine Color (YELLOW) Urine Clarity (Clear) Urine pH (5.0-8.0) Ur Specific [place] (1.003-1.030) Urine Protein (NEGATIVE) mg/dL Urine Glucose (UA) (Normal) mg/dL Urine Ketones (NEGATIVE) mg/dL Urine Blood (NEGATIVE) Urine Nitrate (NEGATIVE) Urine Bilirubin (NEGATIVE) Urine Urobilinogen (0.2-1.0) mg/dL Ur Leukocyte Esterase (Negative) William/uL Urine WBC (Auto) (0-5) /hpf Urine RBC (Auto) (0-3) /hpf Urine Bacteria (<OCC) 11/09/17 11/09/17 11/09/17 Range/Units 04:10 03:06 01:51 WBC (4.8-10.8) K/uL RBC (4.40-5.90) Mil/uL Hgb (12.0-18.0) g/dL Hct (35.0-51.0) % MCV (80.0-94.0) fL MCH (27.0-31.0) pg MCHC (33.0-37.0) g/dL RDW (11.5-14.5) % Plt Count (130-400) K/uL MPV (7.2-11.7) fL Neut % (Auto) (50.0-75.0) % Lymph % (Auto) (20.0-40.0) % [place] % (Auto) (0.0-10.0) % Eos % (Auto) (0.0-4.0) % Baso % (Auto) (0.0-2.0) % Neut # (Auto) (1.8-7.0) K/uL Lymph # (Auto) (1.0-4.3) K/uL [place] # (Auto) (0.0-0.8) K/uL Eos # (Auto) (0.0-0.7) K/uL Baso # (Auto) (0.0-0.2) K/uL pO2 (30-55) mm/Hg VBG pH (7.32-7.43) VBG pCO2 (40-60) mmHg VBG HCO3 mmol/L VBG Total CO2 (22-28) mmol/L VBG O2 Sat (Calc) (40-65) % VBG Base Excess (0.0-2.0) mmol/L VBG Potassium (3.6-5.2) mmol/L Sodium (132-148) mmol/l Chloride (98-107) mmol/L Glucose (75-110) mg/dl Lactate (0.7-2.1) mmol/L Crit Value Called To Crit Value Called By Crit Value Read Back Blood Gas Notified Time Potassium (3.6-5.2) mmol/L Carbon Dioxide (22-30) mmol/L Anion Gap (10-20) BUN (9-20) mg/dL Creatinine (0.8-1.5) mg/dL Est GFR ( Amer) Est GFR (Non-Af Amer) POC Glucose (mg/dL) 119 H 131 H 173 H (65-110) mg/dL Random Glucose (75-110) mg/dL Lactic Acid (0.7-2.1) mmol/L Calcium (8.6-10.4) mg/dl Phosphorus (2.5-4.5) mg/dL Magnesium (1.6-2.3) mg/dL Total Bilirubin (0.2-1.3) mg/dL AST (17-59) U/L ALT (21-72) U/L Alkaline Phosphatase (38-126) U/L Total Protein (6.3-8.3) g/dL Albumin (3.5-5.0) g/dL Globulin (2.2-3.9) gm/dL Albumin/Globulin Ratio (1.0-2.1) Venous Blood Potassium (3.6-5.2) mmol/L Urine Color (YELLOW) Urine Clarity (Clear) Urine pH (5.0-8.0) Ur Specific [place] (1.003-1.030) Urine Protein (NEGATIVE) mg/dL Urine Glucose (UA) (Normal) mg/dL Urine Ketones (NEGATIVE) mg/dL Urine Blood (NEGATIVE) Urine Nitrate (NEGATIVE) Urine Bilirubin (NEGATIVE) Urine Urobilinogen (0.2-1.0) mg/dL Ur Leukocyte Esterase (Negative) William/uL Urine WBC (Auto) (0-5) /hpf Urine RBC (Auto) (0-3) /hpf Urine Bacteria (<OCC) 11/09/17 11/08/17 11/08/17 Range/Units 00:59 23:48 22:55 WBC (4.8-10.8) K/uL RBC (4.40-5.90) Mil/uL Hgb (12.0-18.0) g/dL Hct (35.0-51.0) % MCV (80.0-94.0) fL MCH (27.0-31.0) pg MCHC (33.0-37.0) g/dL RDW (11.5-14.5) % Plt Count (130-400) K/uL MPV (7.2-11.7) fL Neut % (Auto) (50.0-75.0) % Lymph % (Auto) (20.0-40.0) % [place] % (Auto) (0.0-10.0) % Eos % (Auto) (0.0-4.0) % Baso % (Auto) (0.0-2.0) % Neut # (Auto) (1.8-7.0) K/uL Lymph # (Auto) (1.0-4.3) K/uL [place] # (Auto) (0.0-0.8) K/uL Eos # (Auto) (0.0-0.7) K/uL Baso # (Auto) (0.0-0.2) K/uL pO2 (30-55) mm/Hg VBG pH (7.32-7.43) VBG pCO2 (40-60) mmHg VBG HCO3 mmol/L VBG Total CO2 (22-28) mmol/L VBG O2 Sat (Calc) (40-65) % VBG Base Excess (0.0-2.0) mmol/L VBG Potassium (3.6-5.2) mmol/L Sodium (132-148) mmol/l Chloride (98-107) mmol/L Glucose (75-110) mg/dl Lactate (0.7-2.1) mmol/L Crit Value Called To Crit Value Called By Crit Value Read Back Blood Gas Notified Time Potassium (3.6-5.2) mmol/L Carbon Dioxide (22-30) mmol/L Anion Gap (10-20) BUN (9-20) mg/dL Creatinine (0.8-1.5) mg/dL Est GFR ( Amer) Est GFR (Non-Af Amer) POC Glucose (mg/dL) 195 H 157 H 142 H (65-110) mg/dL Random Glucose (75-110) mg/dL Lactic Acid (0.7-2.1) mmol/L Calcium (8.6-10.4) mg/dl Phosphorus (2.5-4.5) mg/dL Magnesium (1.6-2.3) mg/dL Total Bilirubin (0.2-1.3) mg/dL AST (17-59) U/L ALT (21-72) U/L Alkaline Phosphatase (38-126) U/L Total Protein (6.3-8.3) g/dL Albumin (3.5-5.0) g/dL Globulin (2.2-3.9) gm/dL Albumin/Globulin Ratio (1.0-2.1) Venous Blood Potassium (3.6-5.2) mmol/L Urine Color (YELLOW) Urine Clarity (Clear) Urine pH (5.0-8.0) Ur Specific [place] (1.003-1.030) Urine Protein (NEGATIVE) mg/dL Urine Glucose (UA) (Normal) mg/dL Urine Ketones (NEGATIVE) mg/dL Urine Blood (NEGATIVE) Urine Nitrate (NEGATIVE) Urine Bilirubin (NEGATIVE) Urine Urobilinogen (0.2-1.0) mg/dL Ur Leukocyte Esterase (Negative) William/uL Urine WBC (Auto) (0-5) /hpf Urine RBC (Auto) (0-3) /hpf Urine Bacteria (<OCC) 11/08/17 11/08/17 11/08/17 Range/Units 22:35 21:46 21:14 WBC (4.8-10.8) K/uL RBC (4.40-5.90) Mil/uL Hgb (12.0-18.0) g/dL Hct (35.0-51.0) % MCV (80.0-94.0) fL MCH (27.0-31.0) pg MCHC (33.0-37.0) g/dL RDW (11.5-14.5) % Plt Count (130-400) K/uL MPV (7.2-11.7) fL Neut % (Auto) (50.0-75.0) % Lymph % (Auto) (20.0-40.0) % [place] % (Auto) (0.0-10.0) % Eos % (Auto) (0.0-4.0) % Baso % (Auto) (0.0-2.0) % Neut # (Auto) (1.8-7.0) K/uL Lymph # (Auto) (1.0-4.3) K/uL [place] # (Auto) (0.0-0.8) K/uL Eos # (Auto) (0.0-0.7) K/uL Baso # (Auto) (0.0-0.2) K/uL pO2 (30-55) mm/Hg VBG pH (7.32-7.43) VBG pCO2 (40-60) mmHg VBG HCO3 mmol/L VBG Total CO2 (22-28) mmol/L VBG O2 Sat (Calc) (40-65) % VBG Base Excess (0.0-2.0) mmol/L VBG Potassium (3.6-5.2) mmol/L Sodium 136 (132-148) mmol/l Chloride 106 (98-107) mmol/L Glucose (75-110) mg/dl Lactate (0.7-2.1) mmol/L Crit Value Called To Crit Value Called By Crit Value Read Back Blood Gas Notified Time Potassium 4.6 (3.6-5.2) mmol/L Carbon Dioxide 20 L (22-30) mmol/L Anion Gap 15 (10-20) BUN 52 H (9-20) mg/dL Creatinine 1.5 (0.8-1.5) mg/dL Est GFR ( Amer) 58 Est GFR (Non-Af Amer) 48 POC Glucose (mg/dL) 143 H 84 (65-110) mg/dL Random Glucose 150 H (75-110) mg/dL Lactic Acid (0.7-2.1) mmol/L Calcium 8.2 L (8.6-10.4) mg/dl Phosphorus 3.4 (2.5-4.5) mg/dL Magnesium 2.0 (1.6-2.3) mg/dL Total Bilirubin (0.2-1.3) mg/dL AST (17-59) U/L ALT (21-72) U/L Alkaline Phosphatase (38-126) U/L Total Protein (6.3-8.3) g/dL Albumin (3.5-5.0) g/dL Globulin (2.2-3.9) gm/dL Albumin/Globulin Ratio (1.0-2.1) Venous Blood Potassium (3.6-5.2) mmol/L Urine Color (YELLOW) Urine Clarity (Clear) Urine pH (5.0-8.0) Ur Specific [place] (1.003-1.030) Urine Protein (NEGATIVE) mg/dL Urine Glucose (UA) (Normal) mg/dL Urine Ketones (NEGATIVE) mg/dL Urine Blood (NEGATIVE) Urine Nitrate (NEGATIVE) Urine Bilirubin (NEGATIVE) Urine Urobilinogen (0.2-1.0) mg/dL Ur Leukocyte Esterase (Negative) William/uL Urine WBC (Auto) (0-5) /hpf Urine RBC (Auto) (0-3) /hpf Urine Bacteria (<OCC) 11/08/17 11/08/17 11/08/17 Range/Units 19:22 18:19 15:38 WBC (4.8-10.8) K/uL RBC (4.40-5.90) Mil/uL Hgb (12.0-18.0) g/dL Hct (35.0-51.0) % MCV (80.0-94.0) fL MCH (27.0-31.0) pg MCHC (33.0-37.0) g/dL RDW (11.5-14.5) % Plt Count (130-400) K/uL MPV (7.2-11.7) fL Neut % (Auto) (50.0-75.0) % Lymph % (Auto) (20.0-40.0) % [place] % (Auto) (0.0-10.0) % Eos % (Auto) (0.0-4.0) % Baso % (Auto) (0.0-2.0) % Neut # (Auto) (1.8-7.0) K/uL Lymph # (Auto) (1.0-4.3) K/uL [place] # (Auto) (0.0-0.8) K/uL Eos # (Auto) (0.0-0.7) K/uL Baso # (Auto) (0.0-0.2) K/uL pO2 (30-55) mm/Hg VBG pH (7.32-7.43) VBG pCO2 (40-60) mmHg VBG HCO3 mmol/L VBG Total CO2 (22-28) mmol/L VBG O2 Sat (Calc) (40-65) % VBG Base Excess (0.0-2.0) mmol/L VBG Potassium (3.6-5.2) mmol/L Sodium (132-148) mmol/l Chloride (98-107) mmol/L Glucose (75-110) mg/dl Lactate (0.7-2.1) mmol/L Crit Value Called To Crit Value Called By Crit Value Read Back Blood Gas Notified Time Potassium (3.6-5.2) mmol/L Carbon Dioxide (22-30) mmol/L Anion Gap (10-20) BUN (9-20) mg/dL Creatinine (0.8-1.5) mg/dL Est GFR ( Amer) Est GFR (Non-Af Amer) POC Glucose (mg/dL) 112 H 375 H (65-110) mg/dL Random Glucose (75-110) mg/dL Lactic Acid (0.7-2.1) mmol/L Calcium (8.6-10.4) mg/dl Phosphorus (2.5-4.5) mg/dL Magnesium (1.6-2.3) mg/dL Total Bilirubin (0.2-1.3) mg/dL AST (17-59) U/L ALT (21-72) U/L Alkaline Phosphatase (38-126) U/L Total Protein (6.3-8.3) g/dL Albumin (3.5-5.0) g/dL Globulin (2.2-3.9) gm/dL Albumin/Globulin Ratio (1.0-2.1) Venous Blood Potassium (3.6-5.2) mmol/L Urine Color Straw (YELLOW) Urine Clarity Clear (Clear) Urine pH 5.0 (5.0-8.0) Ur Specific [place] 1.016 (1.003-1.030) Urine Protein Negative (NEGATIVE) mg/dL Urine Glucose (UA) 3+ H (Normal) mg/dL Urine Ketones 2+ H (NEGATIVE) mg/dL Urine Blood Negative (NEGATIVE) Urine Nitrate Negative (NEGATIVE) Urine Bilirubin Negative (NEGATIVE) Urine Urobilinogen Normal (0.2-1.0) mg/dL Ur Leukocyte Esterase Neg (Negative) William/uL Urine WBC (Auto) < 1 (0-5) /hpf Urine RBC (Auto) < 1 (0-3) /hpf Urine Bacteria Rare (<OCC) 11/08/17 11/08/17 11/08/17 Range/Units 15:18 14:45 14:27 WBC (4.8-10.8) K/uL RBC (4.40-5.90) Mil/uL Hgb (12.0-18.0) g/dL Hct (35.0-51.0) % MCV (80.0-94.0) fL MCH (27.0-31.0) pg MCHC (33.0-37.0) g/dL RDW (11.5-14.5) % Plt Count (130-400) K/uL MPV (7.2-11.7) fL Neut % (Auto) (50.0-75.0) % Lymph % (Auto) (20.0-40.0) % [place] % (Auto) (0.0-10.0) % Eos % (Auto) (0.0-4.0) % Baso % (Auto) (0.0-2.0) % Neut # (Auto) (1.8-7.0) K/uL Lymph # (Auto) (1.0-4.3) K/uL [place] # (Auto) (0.0-0.8) K/uL Eos # (Auto) (0.0-0.7) K/uL Baso # (Auto) (0.0-0.2) K/uL pO2 53 (30-55) mm/Hg VBG pH 7.11 L* (7.32-7.43) VBG pCO2 23 L (40-60) mmHg VBG HCO3 8.3 mmol/L VBG Total CO2 8.0 L (22-28) mmol/L VBG O2 Sat (Calc) 85.5 H (40-65) % VBG Base Excess -20.5 L (0.0-2.0) mmol/L VBG Potassium 5.5 H (3.6-5.2) mmol/L Sodium 137 132.0 (132-148) mmol/l Chloride 99 90.0 L (98-107) mmol/L Glucose > 750 H* D (75-110) mg/dl Lactate 8.9 H* (0.7-2.1) mmol/L Crit Value Called To Ismael valdez Crit Value Called By Ty morse Crit Value Read Back Y Blood Gas Notified Time 1432 Potassium 4.8 (3.6-5.2) mmol/L Carbon Dioxide 8 L* D (22-30) mmol/L Anion Gap 35 H (10-20) BUN 60 H (9-20) mg/dL Creatinine 2.2 H (0.8-1.5) mg/dL Est GFR ( Amer) 37 Est GFR (Non-Af Amer) 31 POC Glucose (mg/dL) > 500 H* (65-110) mg/dL Random Glucose 496 H* D (75-110) mg/dL Lactic Acid (0.7-2.1) mmol/L Calcium 8.6 (8.6-10.4) mg/dl Phosphorus (2.5-4.5) mg/dL Magnesium (1.6-2.3) mg/dL Total Bilirubin 0.2 (0.2-1.3) mg/dL AST 33 (17-59) U/L ALT 32 (21-72) U/L Alkaline Phosphatase 70 (38-126) U/L Total Protein 5.3 L (6.3-8.3) g/dL Albumin 3.3 L (3.5-5.0) g/dL Globulin 2.1 L (2.2-3.9) gm/dL Albumin/Globulin Ratio 1.6 (1.0-2.1) Venous Blood Potassium 5.5 H (3.6-5.2) mmol/L Urine Color (YELLOW) Urine Clarity (Clear) Urine pH (5.0-8.0) Ur Specific [place] (1.003-1.030) Urine Protein (NEGATIVE) mg/dL Urine Glucose (UA) (Normal) mg/dL Urine Ketones (NEGATIVE) mg/dL Urine Blood (NEGATIVE) Urine Nitrate (NEGATIVE) Urine Bilirubin (NEGATIVE) Urine Urobilinogen (0.2-1.0) mg/dL Ur Leukocyte Esterase (Negative) William/uL Urine WBC (Auto) (0-5) /hpf Urine RBC (Auto) (0-3) /hpf Urine Bacteria (<OCC) 11/08/17 11/08/17 Range/Units 14:04 12:56 WBC 7.9 (4.8-10.8) K/uL RBC 3.17 L (4.40-5.90) Mil/uL Hgb 9.9 L (12.0-18.0) g/dL Hct 31.2 L (35.0-51.0) % MCV 98.5 H D (80.0-94.0) fL MCH 31.4 H (27.0-31.0) pg MCHC 31.9 L (33.0-37.0) g/dL RDW 15.6 H (11.5-14.5) % Plt Count 203 (130-400) K/uL MPV 9.2 (7.2-11.7) fL Neut % (Auto) 79.7 H (50.0-75.0) % Lymph % (Auto) 15.6 L (20.0-40.0) % [place] % (Auto) 3.5 (0.0-10.0) % Eos % (Auto) 0.4 (0.0-4.0) % Baso % (Auto) 0.8 (0.0-2.0) % Neut # (Auto) 6.3 (1.8-7.0) K/uL Lymph # (Auto) 1.2 (1.0-4.3) K/uL [place] # (Auto) 0.3 (0.0-0.8) K/uL Eos # (Auto) 0.0 (0.0-0.7) K/uL Baso # (Auto) 0.1 (0.0-0.2) K/uL pO2 (30-55) mm/Hg VBG pH (7.32-7.43) VBG pCO2 (40-60) mmHg VBG HCO3 mmol/L VBG Total CO2 (22-28) mmol/L VBG O2 Sat (Calc) (40-65) % VBG Base Excess (0.0-2.0) mmol/L VBG Potassium (3.6-5.2) mmol/L Sodium (132-148) mmol/l Chloride (98-107) mmol/L Glucose (75-110) mg/dl Lactate (0.7-2.1) mmol/L Crit Value Called To Crit Value Called By Crit Value Read Back Blood Gas Notified Time Potassium (3.6-5.2) mmol/L Carbon Dioxide (22-30) mmol/L Anion Gap (10-20) BUN (9-20) mg/dL Creatinine (0.8-1.5) mg/dL Est GFR ( Amer) Est GFR (Non-Af Amer) POC Glucose (mg/dL) > 500 H* (65-110) mg/dL Random Glucose (75-110) mg/dL Lactic Acid (0.7-2.1) mmol/L Calcium (8.6-10.4) mg/dl Phosphorus (2.5-4.5) mg/dL Magnesium (1.6-2.3) mg/dL Total Bilirubin (0.2-1.3) mg/dL AST (17-59) U/L ALT (21-72) U/L Alkaline Phosphatase (38-126) U/L Total Protein (6.3-8.3) g/dL Albumin (3.5-5.0) g/dL Globulin (2.2-3.9) gm/dL Albumin/Globulin Ratio (1.0-2.1) Venous Blood Potassium (3.6-5.2) mmol/L Urine Color (YELLOW) Urine Clarity (Clear) Urine pH (5.0-8.0) Ur Specific [place] (1.003-1.030) Urine Protein (NEGATIVE) mg/dL Urine Glucose (UA) (Normal) mg/dL Urine Ketones (NEGATIVE) mg/dL Urine Blood (NEGATIVE) Urine Nitrate (NEGATIVE) Urine Bilirubin (NEGATIVE) Urine Urobilinogen (0.2-1.0) mg/dL Ur Leukocyte Esterase (Negative) William/uL Urine WBC (Auto) (0-5) /hpf Urine RBC (Auto) (0-3) /hpf Urine Bacteria (<OCC) Laboratory Results - last 24 hr 11/08/17 11/08/17 11/08/17 12:56 14:04 14:27 WBC 7.9 RBC 3.17 L Hgb 9.9 L Hct 31.2 L MCV 98.5 H D MCH 31.4 H MCHC 31.9 L RDW 15.6 H Plt Count 203 MPV 9.2 Neut % (Auto) 79.7 H Lymph % (Auto) 15.6 L [place] % (Auto) 3.5 Eos % (Auto) 0.4 Baso % (Auto) 0.8 Neut # (Auto) 6.3 Lymph # (Auto) 1.2 [place] # (Auto) 0.3 Eos # (Auto) 0.0 Baso # (Auto) 0.1 pO2 53 VBG pH 7.11 L* VBG pCO2 23 L VBG HCO3 8.3 VBG Total CO2 8.0 L VBG O2 Sat (Calc) 85.5 H VBG Base Excess -20.5 L VBG Potassium 5.5 H Sodium 132.0 Chloride 90.0 L Glucose > 750 H* D Lactate 8.9 H* Crit Value Called To Er nurse josé miguel Crit Value Called By Ty morse Crit Value Read Back Y Blood Gas Notified Time 1432 Potassium Carbon Dioxide Anion Gap BUN Creatinine Est GFR ( Amer) Est GFR (Non-Af Amer) POC Glucose (mg/dL) > 500 H* Random Glucose Lactic Acid Calcium Phosphorus Magnesium Total Bilirubin AST ALT Alkaline Phosphatase Total Protein Albumin Globulin Albumin/Globulin Ratio Venous Blood Potassium 5.5 H Urine Color Urine Clarity Urine pH Ur Specific [place] Urine Protein Urine Glucose (UA) Urine Ketones Urine Blood Urine Nitrate Urine Bilirubin Urine Urobilinogen Ur Leukocyte Esterase Urine WBC (Auto) Urine RBC (Auto) Urine Bacteria 11/08/17 11/08/17 11/08/17 14:45 15:18 15:38 WBC RBC Hgb Hct MCV MCH MCHC RDW Plt Count MPV Neut % (Auto) Lymph % (Auto) [place] % (Auto) Eos % (Auto) Baso % (Auto) Neut # (Auto) Lymph # (Auto) [place] # (Auto) Eos # (Auto) Baso # (Auto) pO2 VBG pH VBG pCO2 VBG HCO3 VBG Total CO2 VBG O2 Sat (Calc) VBG Base Excess VBG Potassium Sodium 137 Chloride 99 Glucose Lactate Crit Value Called To Crit Value Called By Crit Value Read Back Blood Gas Notified Time Potassium 4.8 Carbon Dioxide 8 L* D Anion Gap 35 H BUN 60 H Creatinine 2.2 H Est GFR ( Amer) 37 Est GFR (Non-Af Amer) 31 POC Glucose (mg/dL) > 500 H* 375 H Random Glucose 496 H* D Lactic Acid Calcium 8.6 Phosphorus Magnesium Total Bilirubin 0.2 AST 33 ALT 32 Alkaline Phosphatase 70 Total Protein 5.3 L Albumin 3.3 L Globulin 2.1 L Albumin/Globulin Ratio 1.6 Venous Blood Potassium Urine Color Urine Clarity Urine pH Ur Specific [place] Urine Protein Urine Glucose (UA) Urine Ketones Urine Blood Urine Nitrate Urine Bilirubin Urine Urobilinogen Ur Leukocyte Esterase Urine WBC (Auto) Urine RBC (Auto) Urine Bacteria 11/08/17 11/08/17 11/08/17 18:19 19:22 21:14 WBC RBC Hgb Hct MCV MCH MCHC RDW Plt Count MPV Neut % (Auto) Lymph % (Auto) [place] % (Auto) Eos % (Auto) Baso % (Auto) Neut # (Auto) Lymph # (Auto) [place] # (Auto) Eos # (Auto) Baso # (Auto) pO2 VBG pH VBG pCO2 VBG HCO3 VBG Total CO2 VBG O2 Sat (Calc) VBG Base Excess VBG Potassium Sodium Chloride Glucose Lactate Crit Value Called To Crit Value Called By Crit Value Read Back Blood Gas Notified Time Potassium Carbon Dioxide Anion Gap BUN Creatinine Est GFR ( Amer) Est GFR (Non-Af Amer) POC Glucose (mg/dL) 112 H 84 Random Glucose Lactic Acid Calcium Phosphorus Magnesium Total Bilirubin AST ALT Alkaline Phosphatase Total Protein Albumin Globulin Albumin/Globulin Ratio Venous Blood Potassium Urine Color Straw Urine Clarity Clear Urine pH 5.0 Ur Specific [place] 1.016 Urine Protein Negative Urine Glucose (UA) 3+ H Urine Ketones 2+ H Urine Blood Negative Urine Nitrate Negative Urine Bilirubin Negative Urine Urobilinogen Normal Ur Leukocyte Esterase Neg Urine WBC (Auto) < 1 Urine RBC (Auto) < 1 Urine Bacteria Rare 11/08/17 11/08/17 11/08/17 21:46 22:35 22:55 WBC RBC Hgb Hct MCV MCH MCHC RDW Plt Count MPV Neut % (Auto) Lymph % (Auto) [place] % (Auto) Eos % (Auto) Baso % (Auto) Neut # (Auto) Lymph # (Auto) [place] # (Auto) Eos # (Auto) Baso # (Auto) pO2 VBG pH VBG pCO2 VBG HCO3 VBG Total CO2 VBG O2 Sat (Calc) VBG Base Excess VBG Potassium Sodium 136 Chloride 106 Glucose Lactate Crit Value Called To Crit Value Called By Crit Value Read Back Blood Gas Notified Time Potassium 4.6 Carbon Dioxide 20 L Anion Gap 15 BUN 52 H Creatinine 1.5 Est GFR ( Amer) 58 Est GFR (Non-Af Amer) 48 POC Glucose (mg/dL) 143 H 142 H Random Glucose 150 H Lactic Acid Calcium 8.2 L Phosphorus 3.4 Magnesium 2.0 Total Bilirubin AST ALT Alkaline Phosphatase Total Protein Albumin Globulin Albumin/Globulin Ratio Venous Blood Potassium Urine Color Urine Clarity Urine pH Ur Specific [place] Urine Protein Urine Glucose (UA) Urine Ketones Urine Blood Urine Nitrate Urine Bilirubin Urine Urobilinogen Ur Leukocyte Esterase Urine WBC (Auto) Urine RBC (Auto) Urine Bacteria 11/08/17 11/09/17 11/09/17 23:48 00:59 01:51 WBC RBC Hgb Hct MCV MCH MCHC RDW Plt Count MPV Neut % (Auto) Lymph % (Auto) [place] % (Auto) Eos % (Auto) Baso % (Auto) Neut # (Auto) Lymph # (Auto) [place] # (Auto) Eos # (Auto) Baso # (Auto) pO2 VBG pH VBG pCO2 VBG HCO3 VBG Total CO2 VBG O2 Sat (Calc) VBG Base Excess VBG Potassium Sodium Chloride Glucose Lactate Crit Value Called To Crit Value Called By Crit Value Read Back Blood Gas Notified Time Potassium Carbon Dioxide Anion Gap BUN Creatinine Est GFR ( Amer) Est GFR (Non-Af Amer) POC Glucose (mg/dL) 157 H 195 H 173 H Random Glucose Lactic Acid Calcium Phosphorus Magnesium Total Bilirubin AST ALT Alkaline Phosphatase Total Protein Albumin Globulin Albumin/Globulin Ratio Venous Blood Potassium Urine Color Urine Clarity Urine pH Ur Specific [place] Urine Protein Urine Glucose (UA) Urine Ketones Urine Blood Urine Nitrate Urine Bilirubin Urine Urobilinogen Ur Leukocyte Esterase Urine WBC (Auto) Urine RBC (Auto) Urine Bacteria 11/09/17 11/09/17 11/09/17 03:06 04:10 04:25 WBC RBC Hgb Hct MCV MCH MCHC RDW Plt Count MPV Neut % (Auto) Lymph % (Auto) [place] % (Auto) Eos % (Auto) Baso % (Auto) Neut # (Auto) Lymph # (Auto) [place] # (Auto) Eos # (Auto) Baso # (Auto) pO2 VBG pH VBG pCO2 VBG HCO3 VBG Total CO2 VBG O2 Sat (Calc) VBG Base Excess VBG Potassium Sodium 138 Chloride 111 H Glucose Lactate Crit Value Called To Crit Value Called By Crit Value Read Back Blood Gas Notified Time Potassium 4.3 Carbon Dioxide 21 L Anion Gap 10 BUN 45 H Creatinine 1.3 Est GFR ( Amer) > 60 Est GFR (Non-Af Amer) 57 POC Glucose (mg/dL) 131 H 119 H Random Glucose 114 H Lactic Acid Calcium 8.4 L Phosphorus Magnesium Total Bilirubin AST ALT Alkaline Phosphatase Total Protein Albumin Globulin Albumin/Globulin Ratio Venous Blood Potassium Urine Color Urine Clarity Urine pH Ur Specific [place] Urine Protein Urine Glucose (UA) Urine Ketones Urine Blood Urine Nitrate Urine Bilirubin Urine Urobilinogen Ur Leukocyte Esterase Urine WBC (Auto) Urine RBC (Auto) Urine Bacteria 11/09/17 11/09/17 11/09/17 04:41 04:55 06:01 WBC RBC Hgb Hct MCV MCH MCHC RDW Plt Count MPV Neut % (Auto) Lymph % (Auto) [place] % (Auto) Eos % (Auto) Baso % (Auto) Neut # (Auto) Lymph # (Auto) [place] # (Auto) Eos # (Auto) Baso # (Auto) pO2 VBG pH VBG pCO2 VBG HCO3 VBG Total CO2 VBG O2 Sat (Calc) VBG Base Excess VBG Potassium Sodium Chloride Glucose Lactate Crit Value Called To Crit Value Called By Crit Value Read Back Blood Gas Notified Time Potassium Carbon Dioxide Anion Gap BUN Creatinine Est GFR ( Amer) Est GFR (Non-Af Amer) POC Glucose (mg/dL) 167 H 160 H Random Glucose Lactic Acid 2.8 H Calcium Phosphorus Magnesium Total Bilirubin AST ALT Alkaline Phosphatase Total Protein Albumin Globulin Albumin/Globulin Ratio Venous Blood Potassium Urine Color Urine Clarity Urine pH Ur Specific [place] Urine Protein Urine Glucose (UA) Urine Ketones Urine Blood Urine Nitrate Urine Bilirubin Urine Urobilinogen Ur Leukocyte Esterase Urine WBC (Auto) Urine RBC (Auto) Urine Bacteria 11/09/17 11/09/17 11/09/17 06:56 08:14 08:43 WBC RBC Hgb Hct MCV MCH MCHC RDW Plt Count MPV Neut % (Auto) Lymph % (Auto) [place] % (Auto) Eos % (Auto) Baso % (Auto) Neut # (Auto) Lymph # (Auto) [place] # (Auto) Eos # (Auto) Baso # (Auto) pO2 VBG pH VBG pCO2 VBG HCO3 VBG Total CO2 VBG O2 Sat (Calc) VBG Base Excess VBG Potassium Sodium 139 Chloride 110 H Glucose Lactate Crit Value Called To Crit Value Called By Crit Value Read Back Blood Gas Notified Time Potassium 4.4 Carbon Dioxide 21 L Anion Gap 12 BUN 43 H Creatinine 1.3 Est GFR ( Amer) > 60 Est GFR (Non-Af Amer) 57 POC Glucose (mg/dL) 122 H 124 H Random Glucose 136 H Lactic Acid Calcium 8.5 L Phosphorus Magnesium Total Bilirubin AST ALT Alkaline Phosphatase Total Protein Albumin Globulin Albumin/Globulin Ratio Venous Blood Potassium Urine Color Urine Clarity Urine pH Ur Specific [place] Urine Protein Urine Glucose (UA) Urine Ketones Urine Blood Urine Nitrate Urine Bilirubin Urine Urobilinogen Ur Leukocyte Esterase Urine WBC (Auto) Urine RBC (Auto) Urine Bacteria 11/09/17 11/09/17 11/09/17 08:58 09:59 11:16 WBC RBC Hgb Hct MCV MCH MCHC RDW Plt Count MPV Neut % (Auto) Lymph % (Auto) [place] % (Auto) Eos % (Auto) Baso % (Auto) Neut # (Auto) Lymph # (Auto) [place] # (Auto) Eos # (Auto) Baso # (Auto) pO2 VBG pH VBG pCO2 VBG HCO3 VBG Total CO2 VBG O2 Sat (Calc) VBG Base Excess VBG Potassium Sodium Chloride Glucose Lactate Crit Value Called To Crit Value Called By Crit Value Read Back Blood Gas Notified Time Potassium Carbon Dioxide Anion Gap BUN Creatinine Est GFR ( Amer) Est GFR (Non-Af Amer) POC Glucose (mg/dL) 184 H 246 H 166 H Random Glucose Lactic Acid Calcium Phosphorus Magnesium Total Bilirubin AST ALT Alkaline Phosphatase Total Protein Albumin Globulin Albumin/Globulin Ratio Venous Blood Potassium Urine Color Urine Clarity Urine pH Ur Specific [place] Urine Protein Urine Glucose (UA) Urine Ketones Urine Blood Urine Nitrate Urine Bilirubin Urine Urobilinogen Ur Leukocyte Esterase Urine WBC (Auto) Urine RBC (Auto) Urine Bacteria 11/09/17 11/09/17 12:09 12:56 WBC RBC Hgb Hct MCV MCH MCHC RDW Plt Count MPV Neut % (Auto) Lymph % (Auto) [place] % (Auto) Eos % (Auto) Baso % (Auto) Neut # (Auto) Lymph # (Auto) [place] # (Auto) Eos # (Auto) Baso # (Auto) pO2 VBG pH VBG pCO2 VBG HCO3 VBG Total CO2 VBG O2 Sat (Calc) VBG Base Excess VBG Potassium Sodium Chloride Glucose Lactate Crit Value Called To Crit Value Called By Crit Value Read Back Blood Gas Notified Time Potassium Carbon Dioxide Anion Gap BUN Creatinine Est GFR ( Amer) Est GFR (Non-Af Amer) POC Glucose (mg/dL) 118 H 131 H Random Glucose Lactic Acid Calcium Phosphorus Magnesium Total Bilirubin AST ALT Alkaline Phosphatase Total Protein Albumin Globulin Albumin/Globulin Ratio Venous Blood Potassium Urine Color Urine Clarity Urine pH Ur Specific [place] Urine Protein Urine Glucose (UA) Urine Ketones Urine Blood Urine Nitrate Urine Bilirubin Urine Urobilinogen Ur Leukocyte Esterase Urine WBC (Auto) Urine RBC (Auto) Urine Bacteria EKG/Cardiology Studies: Cardiology / EKG Studies 11/08/17 21:56 EKG [ELECTROCARDIOGRAM] Stat Comment: Mode Of Transportation: BED Reason For Exam: cp Fingerstick Blood Sugar Results: 118 Review of Systems - Review of Systems All systems: reviewed and no additional remarkable complaints except (HPI) Critical Care Progress Note - Nutrition Nutrition: Nutrition Category Date Time Status Heart Healthy Diet [DIET] Diets 11/09/17 Breakfast Active Assessment/Plan - Assessment and Plan (Free Text) Assessment: 57-year-old male with past medical history of diabetes, 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 Neuro: - Currently stable - AAO 2 - Continue home psych dx medications Pulm: - Maintain SPO2 greater than 92% - Nasal cannula as needed CV: - Currently hemodynamically stable - Maintain MAP greater than 65 - Cont home cardiology medications GI: -Heart healthy diet - Cont GI ppx Renal: -Monitor I and O -replete electrolytes as needed Heme: - Monitor H/H - Currently stable Endo: - Currently off of the insulin ggt and anion gap currently closed - Started on his home medication of levemir 14 BID and novolog 4 before meals - Accuchecks Q4H - Cont to monitor GI/DVT ppx Case and plan was reviewed and discussed with Dr Palomino. <Moshe Palomino - Last Filed: 11/09/17 17:03> CCU Objective - Vital Signs / Intake & Output Vital Signs (Last 4 hours): Vital Signs Pulse Resp BP Pulse Ox 11/09/17 14:05 66 14 139/66 99 11/09/17 13:50 69 24 130/62 100 Intake and Output (Last 8hrs): Intake & Output 11/09/17 11/09/17 11/09/17 06:59 14:59 22:59 Intake Total 1215 1268 Output Total 200 300 Balance 1015 968 Weight 144 lb 2.917 oz Intake: IV 6 11 Intake, IV Amount 1209 1057 right AC #1port 1200 1050 right AC #2 port 9 7 Oral 200 Output: Urine 200 300 Urine, Voided 200 300 Other: # Voids Urine, Voided 0 # Bowel Movements 1 - Medications Active Medications: Active Medications Generic Name Dose Route Start Last Admin Trade Name Freq PRN Reason Stop Dose Admin Enoxaparin Sodium 30 mg 11/09/17 10:00 11/09/17 10:13 Lovenox SC 30 mg DAILY ALIE Administration Insulin Aspart 4 unit 11/09/17 11:30 11/09/17 12:11 Novolog SC Not Given AC ALIE Insulin Detemir 14 unit 11/09/17 10:30 11/09/17 10:47 Levemir SC 14 units Q12 ALIE Administration Pantoprazole Sodium 40 mg 11/10/17 10:00 Protonix Ec Tab PO DAILY ALIE - Patient Studies Lab Studies: Microbiology Studies 11/08/17 14:00 Blood Culture - Preliminary Blood NO GROWTH AFTER 24 HOURS 11/08/17 13:30 Blood Culture - Preliminary Blood NO GROWTH AFTER 24 HOURS Lab Studies 11/09/17 11/09/17 11/09/17 Range/Units 13:19 13:15 12:56 pO2 42 (30-55) mm/Hg VBG pH 7.35 (7.32-7.43) VBG pCO2 23 L (40-60) mmHg VBG HCO3 15.8 mmol/L VBG Total CO2 13.4 L (22-28) mmol/L VBG O2 Sat (Calc) 85.1 H (40-65) % VBG Base Excess -10.9 L (0.0-2.0) mmol/L VBG Potassium 2.5 L* (3.6-5.2) mmol/L Glucose 77 (75-110) mg/dl Lactate 2.9 H (0.7-2.1) mmol/L Crit Value Called To Dr perez Crit Value Called By Neer[facility] Crit Value Read Back Y Blood Gas Notified Time 1325 Sodium 149.0 H 139 (132-148) mmol/L Potassium 4.5 (3.6-5.2) mmol/L Chloride 123.0 H 111 H (98-107) mmol/L Carbon Dioxide 20 L (22-30) mmol/L Anion Gap 13 (10-20) BUN 37 H (9-20) mg/dL Creatinine 1.2 (0.8-1.5) mg/dL Est GFR ( Amer) > 60 Est GFR (Non-Af Amer) > 60 POC Glucose (mg/dL) 131 H (65-110) mg/dL Random Glucose 119 H (75-110) mg/dL Lactic Acid (0.7-2.1) mmol/L Calcium 8.4 L (8.6-10.4) mg/dl Phosphorus (2.5-4.5) mg/dL Magnesium (1.6-2.3) mg/dL Venous Blood Potassium 2.5 L* (3.6-5.2) mmol/L Urine Color (YELLOW) Urine Clarity (Clear) Urine pH (5.0-8.0) Ur Specific [place] (1.003-1.030) Urine Protein (NEGATIVE) mg/dL Urine Glucose (UA) (Normal) mg/dL Urine Ketones (NEGATIVE) mg/dL Urine Blood (NEGATIVE) Urine Nitrate (NEGATIVE) Urine Bilirubin (NEGATIVE) Urine Urobilinogen (0.2-1.0) mg/dL Ur Leukocyte Esterase (Negative) William/uL Urine WBC (Auto) (0-5) /hpf Urine RBC (Auto) (0-3) /hpf Urine Bacteria (<OCC) 11/09/17 11/09/17 11/09/17 Range/Units 12:09 11:16 09:59 pO2 (30-55) mm/Hg VBG pH (7.32-7.43) VBG pCO2 (40-60) mmHg VBG HCO3 mmol/L VBG Total CO2 (22-28) mmol/L VBG O2 Sat (Calc) (40-65) % VBG Base Excess (0.0-2.0) mmol/L VBG Potassium (3.6-5.2) mmol/L Glucose (75-110) mg/dl Lactate (0.7-2.1) mmol/L Crit Value Called To Crit Value Called By Crit Value Read Back Blood Gas Notified Time Sodium (132-148) mmol/L Potassium (3.6-5.2) mmol/L Chloride (98-107) mmol/L Carbon Dioxide (22-30) mmol/L Anion Gap (10-20) BUN (9-20) mg/dL Creatinine (0.8-1.5) mg/dL Est GFR ( Amer) Est GFR (Non-Af Amer) POC Glucose (mg/dL) 118 H 166 H 246 H (65-110) mg/dL Random Glucose (75-110) mg/dL Lactic Acid (0.7-2.1) mmol/L Calcium (8.6-10.4) mg/dl Phosphorus (2.5-4.5) mg/dL Magnesium (1.6-2.3) mg/dL Venous Blood Potassium (3.6-5.2) mmol/L Urine Color (YELLOW) Urine Clarity (Clear) Urine pH (5.0-8.0) Ur Specific [place] (1.003-1.030) Urine Protein (NEGATIVE) mg/dL Urine Glucose (UA) (Normal) mg/dL Urine Ketones (NEGATIVE) mg/dL Urine Blood (NEGATIVE) Urine Nitrate (NEGATIVE) Urine Bilirubin (NEGATIVE) Urine Urobilinogen (0.2-1.0) mg/dL Ur Leukocyte Esterase (Negative) William/uL Urine WBC (Auto) (0-5) /hpf Urine RBC (Auto) (0-3) /hpf Urine Bacteria (<OCC) 11/09/17 11/09/17 11/09/17 Range/Units 08:58 08:43 08:14 pO2 (30-55) mm/Hg VBG pH (7.32-7.43) VBG pCO2 (40-60) mmHg VBG HCO3 mmol/L VBG Total CO2 (22-28) mmol/L VBG O2 Sat (Calc) (40-65) % VBG Base Excess (0.0-2.0) mmol/L VBG Potassium (3.6-5.2) mmol/L Glucose (75-110) mg/dl Lactate (0.7-2.1) mmol/L Crit Value Called To Crit Value Called By Crit Value Read Back Blood Gas Notified Time Sodium 139 (132-148) mmol/L Potassium 4.4 (3.6-5.2) mmol/L Chloride 110 H (98-107) mmol/L Carbon Dioxide 21 L (22-30) mmol/L Anion Gap 12 (10-20) BUN 43 H (9-20) mg/dL Creatinine 1.3 (0.8-1.5) mg/dL Est GFR ( Amer) > 60 Est GFR (Non-Af Amer) 57 POC Glucose (mg/dL) 184 H 124 H (65-110) mg/dL Random Glucose 136 H (75-110) mg/dL Lactic Acid (0.7-2.1) mmol/L Calcium 8.5 L (8.6-10.4) mg/dl Phosphorus (2.5-4.5) mg/dL Magnesium (1.6-2.3) mg/dL Venous Blood Potassium (3.6-5.2) mmol/L Urine Color (YELLOW) Urine Clarity (Clear) Urine pH (5.0-8.0) Ur Specific [place] (1.003-1.030) Urine Protein (NEGATIVE) mg/dL Urine Glucose (UA) (Normal) mg/dL Urine Ketones (NEGATIVE) mg/dL Urine Blood (NEGATIVE) Urine Nitrate (NEGATIVE) Urine Bilirubin (NEGATIVE) Urine Urobilinogen (0.2-1.0) mg/dL Ur Leukocyte Esterase (Negative) William/uL Urine WBC (Auto) (0-5) /hpf Urine RBC (Auto) (0-3) /hpf Urine Bacteria (<OCC) 11/09/17 11/09/17 11/09/17 Range/Units 06:56 06:01 04:55 pO2 (30-55) mm/Hg VBG pH (7.32-7.43) VBG pCO2 (40-60) mmHg VBG HCO3 mmol/L VBG Total CO2 (22-28) mmol/L VBG O2 Sat (Calc) (40-65) % VBG Base Excess (0.0-2.0) mmol/L VBG Potassium (3.6-5.2) mmol/L Glucose (75-110) mg/dl Lactate (0.7-2.1) mmol/L Crit Value Called To Crit Value Called By Crit Value Read Back Blood Gas Notified Time Sodium (132-148) mmol/L Potassium (3.6-5.2) mmol/L Chloride (98-107) mmol/L Carbon Dioxide (22-30) mmol/L Anion Gap (10-20) BUN (9-20) mg/dL Creatinine (0.8-1.5) mg/dL Est GFR ( Amer) Est GFR (Non-Af Amer) POC Glucose (mg/dL) 122 H 160 H 167 H (65-110) mg/dL Random Glucose (75-110) mg/dL Lactic Acid (0.7-2.1) mmol/L Calcium (8.6-10.4) mg/dl Phosphorus (2.5-4.5) mg/dL Magnesium (1.6-2.3) mg/dL Venous Blood Potassium (3.6-5.2) mmol/L Urine Color (YELLOW) Urine Clarity (Clear) Urine pH (5.0-8.0) Ur Specific [place] (1.003-1.030) Urine Protein (NEGATIVE) mg/dL Urine Glucose (UA) (Normal) mg/dL Urine Ketones (NEGATIVE) mg/dL Urine Blood (NEGATIVE) Urine Nitrate (NEGATIVE) Urine Bilirubin (NEGATIVE) Urine Urobilinogen (0.2-1.0) mg/dL Ur Leukocyte Esterase (Negative) William/uL Urine WBC (Auto) (0-5) /hpf Urine RBC (Auto) (0-3) /hpf Urine Bacteria (<OCC) 11/09/17 11/09/17 11/09/17 Range/Units 04:41 04:25 04:10 pO2 (30-55) mm/Hg VBG pH (7.32-7.43) VBG pCO2 (40-60) mmHg VBG HCO3 mmol/L VBG Total CO2 (22-28) mmol/L VBG O2 Sat (Calc) (40-65) % VBG Base Excess (0.0-2.0) mmol/L VBG Potassium (3.6-5.2) mmol/L Glucose (75-110) mg/dl Lactate (0.7-2.1) mmol/L Crit Value Called To Crit Value Called By Crit Value Read Back Blood Gas Notified Time Sodium 138 (132-148) mmol/L Potassium 4.3 (3.6-5.2) mmol/L Chloride 111 H (98-107) mmol/L Carbon Dioxide 21 L (22-30) mmol/L Anion Gap 10 (10-20) BUN 45 H (9-20) mg/dL Creatinine 1.3 (0.8-1.5) mg/dL Est GFR ( Amer) > 60 Est GFR (Non-Af Amer) 57 POC Glucose (mg/dL) 119 H (65-110) mg/dL Random Glucose 114 H (75-110) mg/dL Lactic Acid 2.8 H (0.7-2.1) mmol/L Calcium 8.4 L (8.6-10.4) mg/dl Phosphorus (2.5-4.5) mg/dL Magnesium (1.6-2.3) mg/dL Venous Blood Potassium (3.6-5.2) mmol/L Urine Color (YELLOW) Urine Clarity (Clear) Urine pH (5.0-8.0) Ur Specific [place] (1.003-1.030) Urine Protein (NEGATIVE) mg/dL Urine Glucose (UA) (Normal) mg/dL Urine Ketones (NEGATIVE) mg/dL Urine Blood (NEGATIVE) Urine Nitrate (NEGATIVE) Urine Bilirubin (NEGATIVE) Urine Urobilinogen (0.2-1.0) mg/dL Ur Leukocyte Esterase (Negative) William/uL Urine WBC (Auto) (0-5) /hpf Urine RBC (Auto) (0-3) /hpf Urine Bacteria (<OCC) 11/09/17 11/09/17 11/09/17 Range/Units 03:06 01:51 00:59 pO2 (30-55) mm/Hg VBG pH (7.32-7.43) VBG pCO2 (40-60) mmHg VBG HCO3 mmol/L VBG Total CO2 (22-28) mmol/L VBG O2 Sat (Calc) (40-65) % VBG Base Excess (0.0-2.0) mmol/L VBG Potassium (3.6-5.2) mmol/L Glucose (75-110) mg/dl Lactate (0.7-2.1) mmol/L Crit Value Called To Crit Value Called By Crit Value Read Back Blood Gas Notified Time Sodium (132-148) mmol/L Potassium (3.6-5.2) mmol/L Chloride (98-107) mmol/L Carbon Dioxide (22-30) mmol/L Anion Gap (10-20) BUN (9-20) mg/dL Creatinine (0.8-1.5) mg/dL Est GFR ( Amer) Est GFR (Non-Af Amer) POC Glucose (mg/dL) 131 H 173 H 195 H (65-110) mg/dL Random Glucose (75-110) mg/dL Lactic Acid (0.7-2.1) mmol/L Calcium (8.6-10.4) mg/dl Phosphorus (2.5-4.5) mg/dL Magnesium (1.6-2.3) mg/dL Venous Blood Potassium (3.6-5.2) mmol/L Urine Color (YELLOW) Urine Clarity (Clear) Urine pH (5.0-8.0) Ur Specific [place] (1.003-1.030) Urine Protein (NEGATIVE) mg/dL Urine Glucose (UA) (Normal) mg/dL Urine Ketones (NEGATIVE) mg/dL Urine Blood (NEGATIVE) Urine Nitrate (NEGATIVE) Urine Bilirubin (NEGATIVE) Urine Urobilinogen (0.2-1.0) mg/dL Ur Leukocyte Esterase (Negative) William/uL Urine WBC (Auto) (0-5) /hpf Urine RBC (Auto) (0-3) /hpf Urine Bacteria (<OCC) 11/08/17 11/08/17 11/08/17 Range/Units 23:48 22:55 22:35 pO2 (30-55) mm/Hg VBG pH (7.32-7.43) VBG pCO2 (40-60) mmHg VBG HCO3 mmol/L VBG Total CO2 (22-28) mmol/L VBG O2 Sat (Calc) (40-65) % VBG Base Excess (0.0-2.0) mmol/L VBG Potassium (3.6-5.2) mmol/L Glucose (75-110) mg/dl Lactate (0.7-2.1) mmol/L Crit Value Called To Crit Value Called By Crit Value Read Back Blood Gas Notified Time Sodium (132-148) mmol/L Potassium (3.6-5.2) mmol/L Chloride (98-107) mmol/L Carbon Dioxide (22-30) mmol/L Anion Gap (10-20) BUN (9-20) mg/dL Creatinine (0.8-1.5) mg/dL Est GFR ( Amer) Est GFR (Non-Af Amer) POC Glucose (mg/dL) 157 H 142 H 143 H (65-110) mg/dL Random Glucose (75-110) mg/dL Lactic Acid (0.7-2.1) mmol/L Calcium (8.6-10.4) mg/dl Phosphorus (2.5-4.5) mg/dL Magnesium (1.6-2.3) mg/dL Venous Blood Potassium (3.6-5.2) mmol/L Urine Color (YELLOW) Urine Clarity (Clear) Urine pH (5.0-8.0) Ur Specific [place] (1.003-1.030) Urine Protein (NEGATIVE) mg/dL Urine Glucose (UA) (Normal) mg/dL Urine Ketones (NEGATIVE) mg/dL Urine Blood (NEGATIVE) Urine Nitrate (NEGATIVE) Urine Bilirubin (NEGATIVE) Urine Urobilinogen (0.2-1.0) mg/dL Ur Leukocyte Esterase (Negative) William/uL Urine WBC (Auto) (0-5) /hpf Urine RBC (Auto) (0-3) /hpf Urine Bacteria (<OCC) 11/08/17 11/08/17 11/08/17 Range/Units 21:46 21:14 19:22 pO2 (30-55) mm/Hg VBG pH (7.32-7.43) VBG pCO2 (40-60) mmHg VBG HCO3 mmol/L VBG Total CO2 (22-28) mmol/L VBG O2 Sat (Calc) (40-65) % VBG Base Excess (0.0-2.0) mmol/L VBG Potassium (3.6-5.2) mmol/L Glucose (75-110) mg/dl Lactate (0.7-2.1) mmol/L Crit Value Called To Crit Value Called By Crit Value Read Back Blood Gas Notified Time Sodium 136 (132-148) mmol/L Potassium 4.6 (3.6-5.2) mmol/L Chloride 106 (98-107) mmol/L Carbon Dioxide 20 L (22-30) mmol/L Anion Gap 15 (10-20) BUN 52 H (9-20) mg/dL Creatinine 1.5 (0.8-1.5) mg/dL Est GFR ( Amer) 58 Est GFR (Non-Af Amer) 48 POC Glucose (mg/dL) 84 112 H (65-110) mg/dL Random Glucose 150 H (75-110) mg/dL Lactic Acid (0.7-2.1) mmol/L Calcium 8.2 L (8.6-10.4) mg/dl Phosphorus 3.4 (2.5-4.5) mg/dL Magnesium 2.0 (1.6-2.3) mg/dL Venous Blood Potassium (3.6-5.2) mmol/L Urine Color (YELLOW) Urine Clarity (Clear) Urine pH (5.0-8.0) Ur Specific [place] (1.003-1.030) Urine Protein (NEGATIVE) mg/dL Urine Glucose (UA) (Normal) mg/dL Urine Ketones (NEGATIVE) mg/dL Urine Blood (NEGATIVE) Urine Nitrate (NEGATIVE) Urine Bilirubin (NEGATIVE) Urine Urobilinogen (0.2-1.0) mg/dL Ur Leukocyte Esterase (Negative) William/uL Urine WBC (Auto) (0-5) /hpf Urine RBC (Auto) (0-3) /hpf Urine Bacteria (<OCC) 11/08/17 Range/Units 18:19 pO2 (30-55) mm/Hg VBG pH (7.32-7.43) VBG pCO2 (40-60) mmHg VBG HCO3 mmol/L VBG Total CO2 (22-28) mmol/L VBG O2 Sat (Calc) (40-65) % VBG Base Excess (0.0-2.0) mmol/L VBG Potassium (3.6-5.2) mmol/L Glucose (75-110) mg/dl Lactate (0.7-2.1) mmol/L Crit Value Called To Crit Value Called By Crit Value Read Back Blood Gas Notified Time Sodium (132-148) mmol/L Potassium (3.6-5.2) mmol/L Chloride (98-107) mmol/L Carbon Dioxide (22-30) mmol/L Anion Gap (10-20) BUN (9-20) mg/dL Creatinine (0.8-1.5) mg/dL Est GFR ( Amer) Est GFR (Non-Af Amer) POC Glucose (mg/dL) (65-110) mg/dL Random Glucose (75-110) mg/dL Lactic Acid (0.7-2.1) mmol/L Calcium (8.6-10.4) mg/dl Phosphorus (2.5-4.5) mg/dL Magnesium (1.6-2.3) mg/dL Venous Blood Potassium (3.6-5.2) mmol/L Urine Color Straw (YELLOW) Urine Clarity Clear (Clear) Urine pH 5.0 (5.0-8.0) Ur Specific [place] 1.016 (1.003-1.030) Urine Protein Negative (NEGATIVE) mg/dL Urine Glucose (UA) 3+ H (Normal) mg/dL Urine Ketones 2+ H (NEGATIVE) mg/dL Urine Blood Negative (NEGATIVE) Urine Nitrate Negative (NEGATIVE) Urine Bilirubin Negative (NEGATIVE) Urine Urobilinogen Normal (0.2-1.0) mg/dL Ur Leukocyte Esterase Neg (Negative) William/uL Urine WBC (Auto) < 1 (0-5) /hpf Urine RBC (Auto) < 1 (0-3) /hpf Urine Bacteria Rare (<OCC) Laboratory Results - last 24 hr 11/08/17 11/08/17 11/08/17 18:19 19:22 21:14 pO2 VBG pH VBG pCO2 VBG HCO3 VBG Total CO2 VBG O2 Sat (Calc) VBG Base Excess VBG Potassium Glucose Lactate Crit Value Called To Crit Value Called By Crit Value Read Back Blood Gas Notified Time Sodium Potassium Chloride Carbon Dioxide Anion Gap BUN Creatinine Est GFR ( Amer) Est GFR (Non-Af Amer) POC Glucose (mg/dL) 112 H 84 Random Glucose Lactic Acid Calcium Phosphorus Magnesium Venous Blood Potassium Urine Color Straw Urine Clarity Clear Urine pH 5.0 Ur Specific [place] 1.016 Urine Protein Negative Urine Glucose (UA) 3+ H Urine Ketones 2+ H Urine Blood Negative Urine Nitrate Negative Urine Bilirubin Negative Urine Urobilinogen Normal Ur Leukocyte Esterase Neg Urine WBC (Auto) < 1 Urine RBC (Auto) < 1 Urine Bacteria Rare 11/08/17 11/08/17 11/08/17 21:46 22:35 22:55 pO2 VBG pH VBG pCO2 VBG HCO3 VBG Total CO2 VBG O2 Sat (Calc) VBG Base Excess VBG Potassium Glucose Lactate Crit Value Called To Crit Value Called By Crit Value Read Back Blood Gas Notified Time Sodium 136 Potassium 4.6 Chloride 106 Carbon Dioxide 20 L Anion Gap 15 BUN 52 H Creatinine 1.5 Est GFR ( Amer) 58 Est GFR (Non-Af Amer) 48 POC Glucose (mg/dL) 143 H 142 H Random Glucose 150 H Lactic Acid Calcium 8.2 L Phosphorus 3.4 Magnesium 2.0 Venous Blood Potassium Urine Color Urine Clarity Urine pH Ur Specific [place] Urine Protein Urine Glucose (UA) Urine Ketones Urine Blood Urine Nitrate Urine Bilirubin Urine Urobilinogen Ur Leukocyte Esterase Urine WBC (Auto) Urine RBC (Auto) Urine Bacteria 11/08/17 11/09/17 11/09/17 23:48 00:59 01:51 pO2 VBG pH VBG pCO2 VBG HCO3 VBG Total CO2 VBG O2 Sat (Calc) VBG Base Excess VBG Potassium Glucose Lactate Crit Value Called To Crit Value Called By Crit Value Read Back Blood Gas Notified Time Sodium Potassium Chloride Carbon Dioxide Anion Gap BUN Creatinine Est GFR ( Amer) Est GFR (Non-Af Amer) POC Glucose (mg/dL) 157 H 195 H 173 H Random Glucose Lactic Acid Calcium Phosphorus Magnesium Venous Blood Potassium Urine Color Urine Clarity Urine pH Ur Specific [place] Urine Protein Urine Glucose (UA) Urine Ketones Urine Blood Urine Nitrate Urine Bilirubin Urine Urobilinogen Ur Leukocyte Esterase Urine WBC (Auto) Urine RBC (Auto) Urine Bacteria 11/09/17 11/09/17 11/09/17 03:06 04:10 04:25 pO2 VBG pH VBG pCO2 VBG HCO3 VBG Total CO2 VBG O2 Sat (Calc) VBG Base Excess VBG Potassium Glucose Lactate Crit Value Called To Crit Value Called By Crit Value Read Back Blood Gas Notified Time Sodium 138 Potassium 4.3 Chloride 111 H Carbon Dioxide 21 L Anion Gap 10 BUN 45 H Creatinine 1.3 Est GFR ( Amer) > 60 Est GFR (Non-Af Amer) 57 POC Glucose (mg/dL) 131 H 119 H Random Glucose 114 H Lactic Acid Calcium 8.4 L Phosphorus Magnesium Venous Blood Potassium Urine Color Urine Clarity Urine pH Ur Specific [place] Urine Protein Urine Glucose (UA) Urine Ketones Urine Blood Urine Nitrate Urine Bilirubin Urine Urobilinogen Ur Leukocyte Esterase Urine WBC (Auto) Urine RBC (Auto) Urine Bacteria 11/09/17 11/09/17 11/09/17 04:41 04:55 06:01 pO2 VBG pH VBG pCO2 VBG HCO3 VBG Total CO2 VBG O2 Sat (Calc) VBG Base Excess VBG Potassium Glucose Lactate Crit Value Called To Crit Value Called By Crit Value Read Back Blood Gas Notified Time Sodium Potassium Chloride Carbon Dioxide Anion Gap BUN Creatinine Est GFR ( Amer) Est GFR (Non-Af Amer) POC Glucose (mg/dL) 167 H 160 H Random Glucose Lactic Acid 2.8 H Calcium Phosphorus Magnesium Venous Blood Potassium Urine Color Urine Clarity Urine pH Ur Specific [place] Urine Protein Urine Glucose (UA) Urine Ketones Urine Blood Urine Nitrate Urine Bilirubin Urine Urobilinogen Ur Leukocyte Esterase Urine WBC (Auto) Urine RBC (Auto) Urine Bacteria 11/09/17 11/09/17 11/09/17 06:56 08:14 08:43 pO2 VBG pH VBG pCO2 VBG HCO3 VBG Total CO2 VBG O2 Sat (Calc) VBG Base Excess VBG Potassium Glucose Lactate Crit Value Called To Crit Value Called By Crit Value Read Back Blood Gas Notified Time Sodium 139 Potassium 4.4 Chloride 110 H Carbon Dioxide 21 L Anion Gap 12 BUN 43 H Creatinine 1.3 Est GFR ( Amer) > 60 Est GFR (Non-Af Amer) 57 POC Glucose (mg/dL) 122 H 124 H Random Glucose 136 H Lactic Acid Calcium 8.5 L Phosphorus Magnesium Venous Blood Potassium Urine Color Urine Clarity Urine pH Ur Specific [place] Urine Protein Urine Glucose (UA) Urine Ketones Urine Blood Urine Nitrate Urine Bilirubin Urine Urobilinogen Ur Leukocyte Esterase Urine WBC (Auto) Urine RBC (Auto) Urine Bacteria 11/09/17 11/09/17 11/09/17 08:58 09:59 11:16 pO2 VBG pH VBG pCO2 VBG HCO3 VBG Total CO2 VBG O2 Sat (Calc) VBG Base Excess VBG Potassium Glucose Lactate Crit Value Called To Crit Value Called By Crit Value Read Back Blood Gas Notified Time Sodium Potassium Chloride Carbon Dioxide Anion Gap BUN Creatinine Est GFR ( Amer) Est GFR (Non-Af Amer) POC Glucose (mg/dL) 184 H 246 H 166 H Random Glucose Lactic Acid Calcium Phosphorus Magnesium Venous Blood Potassium Urine Color Urine Clarity Urine pH Ur Specific [place] Urine Protein Urine Glucose (UA) Urine Ketones Urine Blood Urine Nitrate Urine Bilirubin Urine Urobilinogen Ur Leukocyte Esterase Urine WBC (Auto) Urine RBC (Auto) Urine Bacteria 11/09/17 11/09/17 11/09/17 12:09 12:56 13:15 pO2 VBG pH VBG pCO2 VBG HCO3 VBG Total CO2 VBG O2 Sat (Calc) VBG Base Excess VBG Potassium Glucose Lactate Crit Value Called To Crit Value Called By Crit Value Read Back Blood Gas Notified Time Sodium 139 Potassium 4.5 Chloride 111 H Carbon Dioxide 20 L Anion Gap 13 BUN 37 H Creatinine 1.2 Est GFR ( Amer) > 60 Est GFR (Non-Af Amer) > 60 POC Glucose (mg/dL) 118 H 131 H Random Glucose 119 H Lactic Acid Calcium 8.4 L Phosphorus Magnesium Venous Blood Potassium Urine Color Urine Clarity Urine pH Ur Specific [place] Urine Protein Urine Glucose (UA) Urine Ketones Urine Blood Urine Nitrate Urine Bilirubin Urine Urobilinogen Ur Leukocyte Esterase Urine WBC (Auto) Urine RBC (Auto) Urine Bacteria 11/09/17 13:19 pO2 42 VBG pH 7.35 VBG pCO2 23 L VBG HCO3 15.8 VBG Total CO2 13.4 L VBG O2 Sat (Calc) 85.1 H VBG Base Excess -10.9 L VBG Potassium 2.5 L* Glucose 77 Lactate 2.9 H Crit Value Called To Dr perez Crit Value Called By Neeraj israel [facility] Crit Value Read Back Y Blood Gas Notified Time 1325 Sodium 149.0 H Potassium Chloride 123.0 H Carbon Dioxide Anion Gap BUN Creatinine Est GFR ( Amer) Est GFR (Non-Af Amer) POC Glucose (mg/dL) Random Glucose Lactic Acid Calcium Phosphorus Magnesium Venous Blood Potassium 2.5 L* Urine Color Urine Clarity Urine pH Ur Specific [place] Urine Protein Urine Glucose (UA) Urine Ketones Urine Blood Urine Nitrate Urine Bilirubin Urine Urobilinogen Ur Leukocyte Esterase Urine WBC (Auto) Urine RBC (Auto) Urine Bacteria EKG/Cardiology Studies: Cardiology / EKG Studies 11/08/17 21:56 EKG [ELECTROCARDIOGRAM] Stat Comment: Mode Of Transportation: BED Reason For Exam: cp Critical Care Progress Note - Nutrition Nutrition: Nutrition Category Date Time Status Heart Healthy Diet [DIET] Diets 11/09/17 Breakfast Active Attending/Attestation - Attestation I have personally seen and examined this patient.: Yes I have fully participated in the care of the patient.: Yes I have reviewed all pertinent clinical information: Yes Notes (Text): 11/09/17 17:03 Today: , November 09, 2017 The Patient was seen and examined at the bedside, Medical records reviewed, and management issues were discussed and formulated with the house staff. I have reviewed all the relevant clinical, laboratory, hemodynamic, radiographic data and medications Events reviewed Pain issues, skin care, head of the bed elevation, glycemic control were addressed. Agree with above resident's assessment and treatment plans of care as transcribed in Dr. Madrigal's note.
[2017-11-09 13:23] LABS: VENOUS BLOOD GAS BASE EXCESS -10.9 mmol/L (0.0-2.0); VENOUS BLOOD GAS PCO2 23 mmHg (40-60); VENOUS BLOOD GAS PO2 42 mm/Hg (30-55); VENOUS BLOOD PH 7.35 (7.32-7.43)
[2017-11-09 14:15] LABS: BLOOD UREA NITROGEN 37 mg/dL (9-20); CALCIUM 8.4 mg/dl (8.6-10.4); GFR NON-AFRICAN AMERICAN > 60
--- NOTE | 2017-11-09 14:38 | CARD ---
APPROVED REPORT Date of service: 11/08/2017 EKG Measurement Heart [id number] <Conclusion> Sinus rhythm with short MO T wave abnormality, consider anterior ischemia Abnormal ECG
[2017-11-10] MEDS: (Novolog) Insulin Aspart, Recombinant 100 u/ml 10 ml vial SC SCH ×4 (09:06→21:38)
[2017-11-10] MEDS: Metoprolol Succinate 25 mg XL Tab PO SCH (09:09)
[2017-11-10] MEDS: Enoxaparin 30 mg Syringe SC SCH (09:09)
--- NOTE | 2017-11-10 10:08 | CP.PCM.PN ---
<Brit Beckford - Last Filed: 11/10/17 17:57> Subjective - Date & Time of Evaluation Date of Evaluation: 11/10/17 Time of Evaluation: 07:50 - Subjective Subjective: PGY-1 Medicine Progress note for Dr. Benitez Patient was seen and examined today at bedside in no acute distress. Nurse reports no overnight events. Patient reports has not had a BM in two days, however nurse endorses a BM yesterday on her shift. Patient has no other complaints. Denies chest pain, shortness of breath, headache, dizziness, abdominal pain, nausea, vomiting, numbness, tingling. Objective - Vital Signs/Intake and Output Vital Signs (last 24 hours): Temp Pulse Resp BP Pulse Ox 98.0 F 77 13 173/69 H 97 11/10/17 08:00 11/10/17 08:00 11/10/17 08:00 11/10/17 08:00 11/10/17 08:00 - Medications Medications: Current Medications Enoxaparin Sodium (Lovenox) 30 mg SC DAILY [facility] Last Admin: 11/10/17 09:09 Dose: 30 mg Insulin Aspart (Novolog) 4 unit SC AC [facility] Last Admin: 11/10/17 09:06 Dose: 4 units Insulin Detemir (Levemir) 14 unit SC Q12 [facility] Last Admin: 11/09/17 22:17 Dose: 14 units Metoprolol Succinate (Toprol Xl) 25 mg PO DAILY [facility] Last Admin: 11/10/17 09:09 Dose: 25 mg Pantoprazole Sodium (Protonix Ec Tab) 40 mg PO DAILY [facility] - Labs Labs: 11/08/17 14:04 11/09/17 13:15 - Constitutional Appears: Non-toxic, No Acute Distress, Chronically Ill - Head Exam Head Exam: ATRAUMATIC, NORMOCEPHALIC - Eye Exam Eye Exam: EOMI, Normal appearance - ENT Exam ENT Exam: Mucous Membranes Moist, Normal Exam Additional comments: smacking lips, poor dentition - Respiratory Exam Respiratory Exam: Clear to Ausculation Bilateral, NORMAL BREATHING PATTERN. absent: Rales, Rhonchi, Wheezes - Cardiovascular Exam Cardiovascular Exam: +S1, +S2. absent: REGULAR RHYTHM, Murmur - GI/Abdominal Exam GI & Abdominal Exam: Soft, Normal Bowel Sounds. absent: Firm, Guarding, Tenderness - Extremities Exam Extremities Exam: Full ROM, Normal Capillary Refill, Normal Inspection. absent : Tenderness Additional comments: IV flushing well SCDs bilaterally - Neurological Exam Neurological Exam: Alert, Awake Additional comments: only responds to Y/N questions. can't name exact hospital location or time. oriented to self has not been ambulating, although has been OOB to chair - Psychiatric Exam Psychiatric exam: Anxious, Normal Affect - Skin Skin Exam: Intact, Normal Color Assessment and Plan - Assessment and Plan (Free Text) Assessment: 57yoM with PMH uncontrolled diabetes, multiple episodes DKA, CAD, CHF, HTN, anemia, alcohol abuse bipolar, schizophrenia, dementia admitted for DKA. Plan: (1) DKA (diabetic ketoacidoses) Assessment and Plan: Critical Care consulted admission and management per ICU until today (11/10), out of ICU HgbA1C (09/13/17): 9.9 VBG: pH 7.11, Lactate 8.9, Glucose >750 Management: * Accuchecks ACHS * ISS - moderate * hypoglycemia protocol * restarted home med: Januvia 50mg po daily * Levemir 14u sc q12 2) CAD, CHF - chronic, diastolic ECHO 09/13/17: LVEF 70.8% Restarted home meds: - ASA 81mg po daily - Plavix 75mg po daily - Lisinopril 20mg po daily - Toprol 25mg po daily - home statin switched to Crestor 3) Hypertension Restarted on home meds: - Lisinopril, Toprol - monitor vital signs 4) Anemia of chronic disease Hgb OA: 9.9 - will monitor with AM labs, transfuse if necessary 5) Hx of Psychiatric Disorder: Schizophrenia, Bipolar 2/2 alcohol abuse Restarted home meds: - Aripiprazole 5mg po bid - Depakote 500mg po daily - Risperidone 0.5mg po HS - Lyrica 75mg po tid 6) Prophylactic Care Assessment and Plan: Lovenox 30mg SC daily Protonix 40mg po daily Heart Healthy Diet - low CCH Dispo: Patient will be discharged tomorrow pending home insulin medication adjustment and conversation with , his primary channel opener outsoles. d/w Dr. Eli Beckford PGY-1 <Robbie Bentiez Jr. - Last Filed: 11/12/17 13:21> Objective - Vital Signs/Intake and Output Vital Signs (last 24 hours): Temp Pulse Resp BP Pulse Ox 98.3 F 78 78 H 152/78 H 20 L 11/11/17 16:00 11/11/17 16:00 11/11/17 16:00 11/11/17 16:00 11/11/17 16:00 - Labs Labs: 11/11/17 07:29 11/11/17 07:29 Attending/Attestation - Attestation I have personally seen and examined this patient.: Yes I have fully participated in the care of the patient.: Yes I have reviewed all pertinent clinical information, including history, physical exam and plan: Yes Notes (Text): 11/12/17 13:21 Reviewed resident note. Agree with findings and plan.
[2017-11-10] MEDS ORDERED: Glucagon Recombinant 1 mg Inj IM PRN (10:26)
[2017-11-10] MEDS ORDERED: Dextrose 50% SYRINGE Inj (50 ml) IV PRN (10:26)
[2017-11-10] MEDS: Divalproex 500 mg ER Tab PO SCH (11:30)
[2017-11-10] MEDS: Pantoprazole 40 mg EC Tab PO SCH (11:31)
[2017-11-10] MEDS: Insulin Detemir 100 units/ml Vial (Levemir) SC SCH ×2 (11:32→22:23)
[2017-11-10 12:58] LABS: BASO % 0.6 % (0.0-2.0); EOS # 0.1 K/uL (0.0-0.7); EOS % 2.4 % (0.0-4.0); HEMOGLOBIN 9.5 g/dL (12.0-18.0); LYMPH # 1.9 K/uL (1.0-4.3); LYMPH % 32.1 % (20.0-40.0); MEAN CORPUSCULAR HEMOGLOBIN 31.6 pg (27.0-31.0); MEAN CORPUSCULAR HGB CONC 34.9 g/dL (33.0-37.0); MEAN PLATELET VOLUME 8.1 fL (7.2-11.7); MONO # 0.3 K/uL (0.0-0.8); MONO % 5.1 % (0.0-10.0); NEUT # 3.5 K/uL (1.8-7.0); NEUT % 59.8 % (50.0-75.0); RBC 3.01 Mil/uL (4.40-5.90); RED CELL DISTRIBUTION WIDTH 15.8 % (11.5-14.5); WHITE BLOOD COUNT 5.8 K/uL (4.8-10.8)
[2017-11-10 13:03] LABS: MEAN CELL VOLUME 90.7 fL (80.0-94.0)
[2017-11-10 13:05] LABS: ALB/GLOB RATIO 1.5 (1.0-2.1); ALBUMIN 3.6 g/dL (3.5-5.0); ALT/SGPT 36 U/L (21-72); AST/SGOT 42 U/L (17-59); BLOOD UREA NITROGEN 22 mg/dL (9-20); CALCIUM 9.4 mg/dl (8.6-10.4); GFR NON-AFRICAN AMERICAN > 60
[2017-11-11 07:47] LABS: BASO % 0.8 % (0.0-2.0); EOS # 0.2 K/uL (0.0-0.7); EOS % 3.4 % (0.0-4.0); HEMOGLOBIN 9.7 g/dL (12.0-18.0); LYMPH # 2.3 K/uL (1.0-4.3); LYMPH % 42.1 % (20.0-40.0); MEAN CELL VOLUME 90.8 fL (80.0-94.0); MEAN CORPUSCULAR HEMOGLOBIN 31.4 pg (27.0-31.0); MEAN CORPUSCULAR HGB CONC 34.6 g/dL (33.0-37.0); MEAN PLATELET VOLUME 8.3 fL (7.2-11.7); MONO # 0.4 K/uL (0.0-0.8); MONO % 8.1 % (0.0-10.0); NEUT # 2.5 K/uL (1.8-7.0); NEUT % 45.6 % (50.0-75.0); RBC 3.09 Mil/uL (4.40-5.90); RED CELL DISTRIBUTION WIDTH 15.9 % (11.5-14.5); WHITE BLOOD COUNT 5.4 K/uL (4.8-10.8)
[2017-11-11 07:56] LABS: ALB/GLOB RATIO 1.3 (1.0-2.1); ALBUMIN 3.1 g/dL (3.5-5.0); ALT/SGPT 40 U/L (21-72); AST/SGOT 34 U/L (17-59); BLOOD UREA NITROGEN 19 mg/dL (9-20); GFR NON-AFRICAN AMERICAN > 60
[2017-11-11] MEDS: (Novolog) Insulin Aspart, Recombinant 100 u/ml 10 ml vial SC SCH ×3 (08:20→16:30)
[2017-11-11] MEDS: Pantoprazole 40 mg EC Tab PO SCH (09:42)
[2017-11-11] MEDS: Divalproex 500 mg ER Tab PO SCH (09:42)
[2017-11-11] MEDS: Enoxaparin 30 mg Syringe SC SCH (09:43)
[2017-11-11] MEDS: Insulin Detemir 100 units/ml Vial (Levemir) SC SCH (09:43)
[2017-11-11] MEDS: Metoprolol Succinate 25 mg XL Tab PO SCH (09:43)
[2017-11-11] MEDS ORDERED: Sod Polystyrene Sulf 15 gm/60 ml Susp PO ONE (16:00)
[2017-11-11 16:05] VITALS: BP 152/78; PULSE 78; RESP 78; TEMP 98.3; O2SAT 20
--- NOTE | 2017-11-11 16:49 | CP.PCM.DIS ---
Provider - Provider Date of Admission: 11/08/17 19:47 Attending physician: Robbie Benitez Jr, MD Consults: none Time Spent in preparation of Discharge (in minutes): 40 Hospital Course - Lab Results Lab Results: Micro Results 11/08/17 14:00 Blood Blood Culture - Preliminary NO GROWTH AFTER 3 DAYS 11/08/17 13:30 Blood Blood Culture - Preliminary NO GROWTH AFTER 3 DAYS 11/08/17 Unknown Nose MRSA Culture (Admit) - Final MRSA NOT DETECTED Most Recent Lab Values WBC 5.4 K/uL (4.8-10.8) 11/11/17 07:29 RBC 3.09 Mil/uL (4.40-5.90) L 11/11/17 07:29 Hgb 9.7 g/dL (12.0-18.0) L 11/11/17 07: Hct 28.0 % (35.0-51.0) L 11/11/17 07: MCV 90.8 fL (80.0-94.0) 11/11/17 07: MCH 31.4 pg (27.0-31.0) H 11/11/17 07: MCHC 34.6 g/dL (33.0-37.0) 11/11/17 07: RDW 15.9 % (11.5-14.5) H 11/11/17 07:29 Plt Count 169 K/uL (130-400) 11/11/17 07:29 MPV 8.3 fL (7.2-11.7) 11/11/17 07: Neut % (Auto) 45.6 % (50.0-75.0) L 11/11/17 07: Lymph % (Auto) 42.1 % (20.0-40.0) H 11/11/17 07:29 [place] % (Auto) 8.1 % (0.0-10.0) 11/11/17 07: Eos % (Auto) 3.4 % (0.0-4.0) 11/11/17 07:29 Baso % (Auto) 0.8 % (0.0-2.0) 11/11/17 07: Neut # (Auto) 2.5 K/uL (1.8-7.0) 11/11/17 07:29 Lymph # (Auto) 2.3 K/uL (1.0-4.3) 11/11/17 07:29 [place]win # (Auto) 0.4 K/uL (0.0-0.8) 11/11/17 07:29 Eos # (Auto) 0.2 K/uL (0.0-0.7) 11/11/17 07:29 Baso # (Auto) 0.0 K/uL (0.0-0.2) 11/11/17 07:29 pO2 42 mm/Hg (30-55) 11/09/17 13:19 VBG pH 7.35 (7.32-7.43) 11/09/17 13:19 VBG pCO2 23 mmHg (40-60) L 11/09/17 13:19 VBG HCO3 15.8 mmol/L 11/09/17 13:19 VBG Total CO2 13.4 mmol/L (22-28) L 11/09/17 13:19 VBG O2 Sat (Calc) 85.1 % (40-65) H 11/09/17 13:19 VBG Base Excess -10.9 mmol/L (0.0-2.0) L 11/09/17 13:19 VBG Potassium 2.5 mmol/L (3.6-5.2) L* 11/09/17 13:19 Sodium 149.0 mmol/l (132-148) H 11/09/17 13:19 Chloride 123.0 mmol/L (98-107) H 11/09/17 13:19 Glucose 77 mg/dl (75-110) 11/09/17 13:19 Lactate 2.9 mmol/L (0.7-2.1) H 11/09/17 13:19 Crit Value Called To Dr perez 11/09/17 13:19 Crit Value Called By Neeraj israel rcp 11/09/17 13:19 Crit Value Read Back Y 11/09/17 13:19 Blood Gas Notified Time 1325 11/09/17 13:19 Sodium 137 mmol/L (132-148) 11/11/17 07:29 Potassium 5.4 mmol/L (3.6-5.2) H 11/11/17 07:29 Chloride 104 mmol/L (98-107) 11/11/17 07:29 Carbon Dioxide 23 mmol/L (22-30) 11/11/17 07:29 Anion Gap 16 (10-20) 11/11/17 07:29 BUN 19 mg/dL (9-20) 11/11/17 07:29 Creatinine 1.2 mg/dL (0.8-1.5) 11/11/17 07:29 Est GFR ( Amer) > 60 11/11/17 07:29 Est GFR (Non-Af Amer) > 60 11/11/17 07:29 POC Glucose (mg/dL) 90 mg/dL (65-110) 11/11/17 16:28 Random Glucose 211 mg/dL (75-110) H 11/11/17 07:29 Lactic Acid 2.8 mmol/L (0.7-2.1) H 11/09/17 04:41 Calcium 9.0 mg/dl (8.6-10.4) 11/11/17 07:29 Phosphorus 3.5 mg/dL (2.5-4.5) 11/11/17 07:29 Magnesium 1.9 mg/dL (1.6-2.3) 11/11/17 07:29 Total Bilirubin 0.2 mg/dL (0.2-1.3) 11/11/17 07:29 AST 34 U/L (17-59) 11/11/17 07:29 ALT 40 U/L (21-72) 11/11/17 07:29 Alkaline Phosphatase 80 U/L (38-126) 11/11/17 07:29 Total Protein 5.4 g/dL (6.3-8.3) L 11/11/17 07:29 Albumin 3.1 g/dL (3.5-5.0) L 11/11/17 07:29 Globulin 2.3 gm/dL (2.2-3.9) 11/11/17 07:29 Albumin/Globulin Ratio 1.3 (1.0-2.1) 11/11/17 07:29 Venous Blood Potassium 2.5 mmol/L (3.6-5.2) L* 11/09/17 13:19 Urine Color Straw (YELLOW) 11/08/17 18:19 Urine Clarity Clear (Clear) 11/08/17 18:19 Urine pH 5.0 (5.0-8.0) 11/08/17 18:19 Ur Specific [place] 1.016 (1.003-1.030) 11/08/17 18: Urine Protein Negative mg/dL (NEGATIVE) 11/08/17 18:19 Urine Glucose (UA) 3+ mg/dL (Normal) H 11/08/17 18:19 Urine Ketones 2+ mg/dL (NEGATIVE) H 11/08/17 18:19 Urine Blood Negative (NEGATIVE) 11/08/17 18: Urine Nitrate Negative (NEGATIVE) 11/08/17 18: Urine Bilirubin Negative (NEGATIVE) 11/08/17 18:19 Urine Urobilinogen Normal mg/dL (0.2-1.0) 11/08/17 18: Ur Leukocyte Esterase Neg William/uL (Negative) 11/08/17 18: Urine WBC (Auto) < 1 /hpf (0-5) 11/08/17 18: Urine RBC (Auto) < 1 /hpf (0-3) 11/08/17 18: Urine Bacteria Rare (<OCC) 11/08/17 18:19 - Hospital Course Hospital Course: Upon hospital admission: Patient is a poor historian and unable to provide an adequate HPI. No family member present. HPI obtained from EMR. Patient is a 57 year old male with past medical history of uncontrolled diabetes, DKA, CAD, CHF , HTN, anemia, alcohol abuse bipolar, schizophrenia, dementia, was brought to the emergency department by family for lethargy. Patient was recently admitted for DKA one month ago. Per ED note, patient's family reported a malfunctioning glucometer so they decided not to give patient his insulin today. Upon arrival, his blood glucose was >500. Patient has no complaints and states he does not know why he is in the hospital. Denies fevers, chills, nausea, vomiting, diarrhea, constipation, chest pain, shortness of breath, abdominal pain, dysuria , urinary frequency, numbness or tinlging. Following patient's information as per EMR PMD: Jimenez PMHx: Uncontrolled diabetes, DKA, CAD, CHF, HTN, anemia, alcohol abuse bipolar, schizophrenia, dementia, CAD, CHF, HTN, anemia PSHx: Unable to obtain FHx: Unable to obtain Medications: Januvia 50mg PO QD, ASA 81mg PO QD, Lisinopril 20mg PO QD, Haldol 2mg PO, Norvasc 5mg PO QD, Pravastatin 20mg PO HS, Ambien 10mg PO HS, Hydralazine 50mg PO QD, Lyrica 75mg PO QD, Plavix 75mg PO QD, Depakote 500mg PO QD Allergies: NKDA Social Hx: Lives with , No noted use of tobacco, ETOH and illicit drugs During hospital course, the patient was evaluated and treated for the following : 1. DKA- patient was admitted with DKA. Family admits to poor management of diet at home, that he frequently snacks on sugary snacks and soda. Family also admits to running out of test strips and not being able to monitor his blood sugar for several days. Patient spent time in the ICU, where he recovered well. His anion gap closed and he responded well to his home medications of Lavamir 12u SC qD and sliding scale averaging 8u per day. The patient did well during this admission, responded well to treatment, and was deemed stable for discharge. Upon hospital discharge, the patient and his care takers (Sister and ) were provided with the following instructions: Patient is stable for discharge per Dr. Benitez. Patient should resume all medications as outlined in this document. Additionally, patient should take the new medications listed below (scripts provided). Spoke with family at length about maintaining a healthy diet at home. 1. Please make an appointment and follow up with your Primary Doctor within one week of discharge. 2. Please eat a healthy diet, shifting away from carbohydrates and refined sugars, with higher intake of vegetables and lean meats like chicken and fish. 3. Stop taking Lisinopril 20mg daily due to elevated potassium. Please start Lisinopril 10mg oral daily. 4. Please stop taking Novolog 4u SC 3x per day. Instead, please start taking Novolog using a sliding scale (print out provided and discussed with family). Patient should return to ED immediately if symptoms return or worsen. Instructions discussed with patient who understood and agreed. Newly prescribed medications: Levemir 17u SC Q12 #30day supply Lisinopril 10mg PO qD #30 Test strips #1 box This is a summary of the patient's hospital admission, see chart for comprehensive detail. - Date & Time of H&P Date of H&P: 11/08/17 Time of H&P: 22:22 Discharge Exam - Additional Findings Additional findings: - Constitutional Appears: Non-toxic, No Acute Distress, Chronically Ill - Head Exam Head Exam: ATRAUMATIC, NORMOCEPHALIC - Eye Exam Eye Exam: EOMI, Normal appearance - ENT Exam ENT Exam: Mucous Membranes Moist, Normal Exam Additional comments: poor dentition - Respiratory Exam Respiratory Exam: Clear to Ausculation Bilateral, NORMAL BREATHING PATTERN. absent: Rales, Rhonchi, Wheezes - Cardiovascular Exam Cardiovascular Exam: +S1, +S2. absent: REGULAR RHYTHM, Murmur - GI/Abdominal Exam GI & Abdominal Exam: Soft, Normal Bowel Sounds. absent: Firm, Guarding, Tenderness - Extremities Exam Extremities Exam: Full ROM, Normal Capillary Refill, Normal Inspection. absent : Tenderness Additional comments: IV flushing well SCDs bilaterally - Neurological Exam Neurological Exam: Alert, Awake Additional comments: only responds to Y/N questions. can't name exact hospital location or time. oriented to self has not been ambulating, although has been OOB to chair - Psychiatric Exam Psychiatric exam: Anxious, Normal Affect - Skin Skin Exam: Intact, Normal Color Discharge Plan - Discharge Medications Prescriptions: Blood Sugar Diagnostic [Test Strips] 1 each MC TID #90 strip Insulin Detemir [Levemir] 17 unit SC Q12 30 Days vial Lisinopril [Zestril] 10 mg PO DAILY #30 tab - Follow Up Plan Condition: IMPROVED Disposition: HOME/ ROUTINE Additional Instructions: Patient is stable for discharge per Dr. Benitez. Patient should resume all medications as outlined in this document. Additionally, patient should take the new medications listed below (scripts provided). Spoke with family at length about maintaining a healthy diet at home. 1. Please make an appointment and follow up with your Primary Doctor within one week of discharge. 2. Please eat a healthy diet, shifting away from carbohydrates and refined sugars, with higher intake of vegetables and lean meats like chicken and fish. 3. Stop taking Lisinopril 20mg daily due to elevated potassium. Please start Lisinopril 10mg oral daily. 4. Please stop taking Novolog 4u SC 3x per day. Instead, please start taking Novolog using a sliding scale (print out provided and discussed with family). Patient should return to ED immediately if symptoms return or worsen. Instructions discussed with patient who understood and agreed. Newly prescribed medications: Levemir 17u SC Q12 #30day supply Lisinopril 10mg PO qD #30 Test strips #1 box
== END 2017-11-11 19:04 | disposition home or self-care (01) | DRG 566 ==
LOC: C.ER 12:52 → C.9E 19:47 → C.9I 21:20 → C.3T 11-10 16:06
PROVIDERS: ADMIT Internal Medicine; ATTEND Internal Medicine
DX: E11.10 Type 2 diabetes mellitus with ketoacidosis without coma (principal); I50.30 Unspecified diastolic (congestive) heart failure; N17.9 Acute kidney failure, unspecified; F03.90 Unspecified dementia, unspecified severity, without behavioral disturbance, psychotic disturbance, mood disturbance, and anxiety; I11.0 Hypertensive heart disease with heart failure; Z79.4 Long term (current) use of insulin; D63.8 Anemia in other chronic diseases classified elsewhere; I25.10 Atherosclerotic heart disease of native coronary artery without angina pectoris; F31.81 Bipolar II disorder; F17.210 Nicotine dependence, cigarettes, uncomplicated

== ENCOUNTER 2017-12-27 14:01 | Inpatient (IN) | payer OTHER ==
[2017-12-27 14:07] VITALS: BMI 23.5
[2017-12-27] MEDS ORDERED: Insulin Human Regular 100 UNIT in Sodium Chloride 0.9% 99 ML IV STA (14:09)
[2017-12-27] MEDS ORDERED: Insulin Human Regular 100 UNIT in Sodium Chloride 0.9% 99 ML IV SCH (14:09)
[2017-12-27] MEDS ORDERED: Sodium Chloride 0.9% 1,000 ML IV ONE ×3 (14:09→15:52)
[2017-12-27] MEDS ORDERED: (Novolin R) Insulin Human Regular 100 units/ml vial IVP STA (14:09)
[2017-12-27] MEDS ORDERED: (Novolin R) Insulin Human Regular 100 units/ml vial ONE (14:30)
[2017-12-27 14:33] LABS: BASO % 0.2 % (0.0-2.0); EOS % 0.1 % (0.0-4.0); HEMOGLOBIN 10.8 g/dL (12.0-18.0); LYMPH # 2.3 K/uL (1.0-4.3); LYMPH % 14.6 % (20.0-40.0); MEAN CORPUSCULAR HEMOGLOBIN 32.3 pg (27.0-31.0); MEAN CORPUSCULAR HGB CONC 32.4 g/dL (33.0-37.0); MEAN PLATELET VOLUME 8.6 fL (7.2-11.7); MONO # 0.8 K/uL (0.0-0.8); NEUT # 12.5 K/uL (1.8-7.0); NEUT % 80.1 % (50.0-75.0); NRBC % 0.1 % (0.0-2.0); RBC 3.33 Mil/uL (4.40-5.90); RED CELL DISTRIBUTION WIDTH 13.6 % (11.5-14.5)
[2017-12-27 14:42] LABS: MEAN CELL VOLUME 99.7 fL (80.0-94.0); WHITE BLOOD COUNT 15.7 K/uL (4.8-10.8)
[2017-12-27 14:59] LABS: ABG ALLEN TEST POS; ARTERIAL BLOOD GAS HCO3 9.5 mmol/L (21-28); ARTERIAL BLOOD GAS O2 SAT 99.2 % (95-98); ARTERIAL BLOOD GAS PCO2 16 mm/Hg (35-45); ARTERIAL BLOOD GAS PH 7.19 (7.35-7.45); ARTERIAL BLOOD GAS PO2 125 mm/Hg (80-100); ARTERIAL BLOOD GAS TCO2 6.6 mmol/L (22-28)
--- NOTE | 2017-12-27 14:59 | C.PDOC ---
Time Seen by Provider: 12/27/17 14:07 Chief Complaint (Nursing): High Blood Sugar Past Medical History Vital Signs: Last Vital Signs Temp 98.3 F 12/27/17 14:09 Pulse 89 12/27/17 14:09 Resp 14 12/27/17 14:09 BP 137/61 12/27/17 14:09 Pulse Ox 100 12/27/17 14:09 - Medical History PMH: Anemia, Anxiety, Bipolar Disorder, CAD, CHF, Dementia, Depression, Diabetes (DKA), Fractures (Skull), HTN, Schizophrenia Denies: Hepatitis, HIV, Kidney Stones, Chronic Kidney Disease, Seizures, Sexually Transmitted Disease - [facility] Procedures INSERTION OF ENDOTRACHEAL AIRWAY INTO TRACHEA, VIA OPENING (12/06/14) INTRODUCTION OF SERUM/TOX/VACCINE INTO MUSCLE, PERC APPROACH (11/26/16) OCCUPATIONAL THERAPY (06/01/14) PHYSICAL THERAPY NEC (06/01/14) RESPIRATORY VENTILATION, 24-96 CONSECUTIVE HOURS (12/06/14) VACCINATION NEC (06/15/14) Family History: States: Unknown Family Hx - Social History Hx Tobacco Use: Yes Hx Alcohol Use: Yes Hx Substance Use: No - Immunization History Hx Tetanus Toxoid Vaccination: No Hx Influenza Vaccination: No Hx Pneumococcal Vaccination: No ED Course And Treatment - Laboratory Results Result Diagrams: 12/27/17 14:27 12/27/17 14:27 ECG: Interpreted By Ri ECG Rhythm: Sinus Rhythm ECG Interpretation: Normal Rate From EC O2 Sat by Pulse Oximetry: 100 Pulse Ox Interpretation: Normal - Radiology CXR: Interpreted by Me CXR Interpretation: Yes: No Acute Disease Progress Note: 1400: glu 945 on CMP. 1530: glu > 500 Reevaluation Time: 15:39 Reassessment Condition: Improved - Physician Consult Information Outcome Of Conversation: 1530 d/w Dr. Escoto ICU, ok to ICU. 1530: d/w Dr. Pappas, Hospitalist covering pts for dayana Alcaraz to adm to ICU Medical Decision Making Medical Decision Making: DKA approx 20 prior episodes of DKA pt with extensive h/o mental illness and dementia offering poor insight into clinical conditon and/or home care. Disposition Doctor Will See Patient In The: Office Counseled Patient/Family Regarding: Studies Performed, Diagnosis - Disposition Disposition: HOME/ ROUTINE Disposition Time: 15:42 Condition: FAIR Forms: [employer] ([place]) - Clinical Impression Clinical Impression: DKA (diabetic ketoacidoses)
[2017-12-27 15:10] LABS: ALB/GLOB RATIO 1.6 (1.0-2.1); ALBUMIN 4.1 g/dL (3.5-5.0); ALT/SGPT 55 U/L (21-72); AST/SGOT 32 U/L (17-59); BLOOD UREA NITROGEN 75 mg/dL (9-20); CALCIUM 9.7 mg/dl (8.6-10.4); GFR NON-AFRICAN AMERICAN 23; LIPASE 151 U/L (23-300)
[2017-12-27] MEDS ORDERED: Sodium Chloride 0.9% 1,000 ML ONE (15:19)
[2017-12-27 15:34] LABS: BARBITURATES, UR NEGATIVE (NEGATIVE); BENZODIAZEPINES, UR NEGATIVE (NEGATIVE); OPIATES, UR NEGATIVE (NEGATIVE); PHENCYCLIDINE, UR NEGATIVE (NEGATIVE); SQUAMOUS EPITHIAL < 1 /hpf (0-5); URINE BILIRUBIN NEGATIVE (NEGATIVE); URINE BLOOD 1+ (NEGATIVE); URINE CLARITY Clear (Clear); URINE COLOR Yellow (YELLOW); URINE GLUCOSE (UA) 3+ mg/dL (Normal); URINE LEUKOCYTE ESTERASE NEG Leu/uL (Negative); URINE PROTEIN NEGATIVE (NEGATIVE); URINE UROBILINOGEN NORMAL mg/dL (0.2-1.0)
--- NOTE | 2017-12-27 15:52 | CP.PCM.HP ---
<Jerilyn Palacio - Last Filed: 12/27/17 16:49> History of Present Illness - History of Present Illness History of Present Illness: Patient is a 57 yo male with dementia and multiple hospitalizations due to DKA who presented to the ED with elevated blood glucose and AMS. Patient is unable to provide history 2/2 to lethargic state as well as baseline dementia. Information is obtained from prior records. Patient has a history of chronic noncompliance. His most recent hospitalization was last month for DKA. There have been discussions with the patient's [place] [facility] [place], which she did not want to pursue. Patient was set up with visiting nursing services during a previous admission. PMH: T2DM- multiple DKA episodes CAD NSTEMI Systolic CHF (HFrEF) HTN JORGE L Dementia Schizophrenia vs bipolar disorder Anemia of chronic disease H/o alcohol use disorder with seizures Meds: Januvia 50 mg PO daily Levemir 17 units SC BID Novolog sliding scale Metoprolol 25 mg daily Lisinopril 10 mg PO daily Pravastatin 20 mg PO QHS Plavix 75 mg PO daily ASA 81 mg PO daily Abilify 5 mg PO BID Risperdal 0.5 mg PO QHS Lyrica 75 mg PO TID Depakote 500 mg PO BID All: NKA FH: unable to obtain SH: lives with with home visiting nursing services Previous heavy alcohol use No known tobacco or illicit drug use PMD: Dr. Gaona Present on Admission - Present on Admission Any Indicators Present on Admission: Yes History of DVT/PE: No History of Uncontrolled Diabetes: Yes Urinary Catheter: No Decubitus Ulcer Present: No History Surgical Site Infection Following: None Review of Systems - Review of Systems Systems not reviewed;Unavailable: Dementia, Altered Mental Status Past Patient History - Infectious Disease Hx of Infectious Diseases: None - Tetanus Immunizations Tetanus Immunization: Unknown - Past Medical History & Family History Past Medical History?: Yes - Past Social History Smoking Status: Never Smoked Chewing Tobacco Use: No Cigar Use: No Alcohol: Other (former heavy alcohol use) Drugs: Denies Home Situation {Lives}: With Family () - CARDIAC Hx Congestive Heart Failure: Yes Hx Hypertension: Yes - PULMONARY Hx Respiratory Disorders: No Hx Tuberculosis: No - NEUROLOGICAL Hx Dementia: Yes Hx Seizures: No - HEENT Hx HEENT Problems: No - RENAL Hx Chronic Kidney Disease: No Hx Kidney Stones: No - ENDOCRINE/METABOLIC Hx Diabetes Mellitus Type 2: Yes - HEMATOLOGICAL/ONCOLOGICAL Hx Anemia: Yes Hx Human Immunodeficiency Virus (HIV): No - INTEGUMENTARY Hx Dermatological Problems: No - MUSCULOSKELETAL/RHEUMATOLOGICAL Hx Fractures: Yes (Skull) - GASTROINTESTINAL Hx Gastrointestinal Disorders: Yes HX Swallowing Problems: Yes - GENITOURINARY/GYNECOLOGICAL Hx Sexually Transmitted Disorders: No - PSYCHIATRIC Hx Anxiety: Yes Hx Bipolar Disorder: Yes Hx Depression: Yes Hx Schizophrenia: Yes Hx Substance Use: No - SURGICAL HISTORY Hx Surgeries: Yes Other/Comment: metal plates in head (skull fx) - ANESTHESIA Hx Anesthesia: Yes Hx Anesthesia Reactions: No Hx Malignant Hyperthermia: No Meds Allergies/Adverse Reactions: Allergies Allergy/AdvReac Type Severity Reaction Status Date / Time No Known Allergies Allergy Verified 12/27/17 14:06 Physical Exam - Constitutional Appears: No Acute Distress, Older Than Stated Age, Confused, Chronically Ill - Head Exam Head Exam: ATRAUMATIC, NORMAL INSPECTION - Eye Exam Eye Exam: EOMI, Normal appearance - ENT Exam ENT Exam: Mucous Membranes Dry - Respiratory Exam Respiratory Exam: Clear to Auscultation Bilateral, NORMAL BREATHING PATTERN. absent: Respiratory Distress - Cardiovascular Exam Cardiovascular Exam: REGULAR RHYTHM, +S1, +S2 - GI/Abdominal Exam GI & Abdominal Exam: Normal Bowel Sounds, Soft. absent: Tenderness - Rectal Exam Rectal Exam: Deferred - Extremities Exam Extremities exam: Positive for: normal inspection - Back Exam Back exam: NORMAL INSPECTION - Neurological Exam Neurological exam: Alert, Altered, CN II-XII Intact Additional comments: oriented to person at baseline - Psychiatric Exam Additional comments: unable to articulate mood - Skin Skin Exam: Dry, Normal Color, Warm Results - Vital Signs Recent Vital Signs: Last Vital Signs Temp 98.3 F 12/27/17 14:09 Pulse 98 H 12/27/17 15:19 Resp 20 12/27/17 15:19 BP 97/58 L 12/27/17 15:19 Pulse Ox 100 12/27/17 15:42 - Labs Result Diagrams: 12/27/17 14:27 12/27/17 14:27 Labs: Laboratory Results - last 24 hr 12/27/17 12/27/17 12/27/17 02:45 14:03 14:27 WBC 15.7 H D RBC 3.33 L Hgb 10.8 L Hct 33.2 L MCV 99.7 H D MCH 32.3 H MCHC 32.4 L RDW 13.6 Plt Count 376 D MPV 8.6 Neut % (Auto) 80.1 H Lymph % (Auto) 14.6 L [place] % (Auto) 5.0 Eos % (Auto) 0.1 Baso % (Auto) 0.2 Neut # (Auto) 12.5 H Lymph # (Auto) 2.3 [place] # (Auto) 0.8 Eos # (Auto) 0.0 Baso # (Auto) 0.0 Puncture Site Rr pCO2 16 L* pO2 125 H HCO3 9.5 L* ABG pH 7.19 L* ABG Total CO2 6.6 L ABG O2 Saturation 99.2 H ABG Base Excess -19.8 L Artis Test Pos ABG Potassium 4.9 Sodium 132.0 Chloride 95.0 L Glucose > 750 H* D Lactate 1.9 Crit Value Called To Dr zhang Crit Value Called By Ginny meyer Crit Value Read Back Y Blood Gas Notified Time 1555 Potassium Carbon Dioxide Anion Gap BUN Creatinine Est GFR ( Amer) Est GFR (Non-Af Amer) POC Glucose (mg/dL) > 500 H* Random Glucose Hemoglobin A1c Calcium Total Bilirubin AST ALT Alkaline Phosphatase Total Protein Albumin Globulin Albumin/Globulin Ratio Lipase Arterial Blood Potassium 4.9 Urine Color Urine Clarity Urine pH Ur Specific [place] Urine Protein Urine Glucose (UA) Urine Ketones Urine Blood Urine Nitrate Urine Bilirubin Urine Urobilinogen Ur Leukocyte Esterase Urine WBC (Auto) Urine RBC (Auto) Ur Squamous Epith Cells Urine Opiates Screen Urine Methadone Screen Ur Barbiturates Screen Ur Phencyclidine Scrn Ur Amphetamines Screen U Benzodiazepines Scrn U Oth Cocaine Metabols U Cannabinoids Screen Alcohol, Quantitative 12/27/17 12/27/17 12/27/17 14:27 14:27 15:11 WBC RBC Hgb Hct MCV MCH MCHC RDW Plt Count MPV Neut % (Auto) Lymph % (Auto) [place] % (Auto) Eos % (Auto) Baso % (Auto) Neut # (Auto) Lymph # (Auto) [place] # (Auto) Eos # (Auto) Baso # (Auto) Puncture Site pCO2 pO2 HCO3 ABG pH ABG Total CO2 ABG O2 Saturation ABG Base Excess Artis Test ABG Potassium Sodium 131 L Chloride 89 L Glucose Lactate Crit Value Called To Crit Value Called By Crit Value Read Back Blood Gas Notified Time Potassium 6.9 H* D Carbon Dioxide 8 L* D Anion Gap 41 H BUN 75 H Creatinine 2.8 H Est GFR ( Amer) 28 Est GFR (Non-Af Amer) 23 POC Glucose (mg/dL) Random Glucose 945 H* D Hemoglobin A1c 12.3 H D Calcium 9.7 Total Bilirubin 0.5 AST 32 ALT 55 Alkaline Phosphatase 230 H D Total Protein 6.6 Albumin 4.1 Globulin 2.5 Albumin/Globulin Ratio 1.6 Lipase 151 Arterial Blood Potassium Urine Color Yellow Urine Clarity Clear Urine pH 5.0 Ur Specific [place] 1.020 Urine Protein Negative Urine Glucose (UA) 3+ H Urine Ketones 1+ H Urine Blood 1+ H Urine Nitrate Negative Urine Bilirubin Negative Urine Urobilinogen Normal Ur Leukocyte Esterase Neg Urine WBC (Auto) 1 Urine RBC (Auto) 4 H Ur Squamous Epith Cells < 1 Urine Opiates Screen Urine Methadone Screen Ur Barbiturates Screen Ur Phencyclidine Scrn Ur Amphetamines Screen U Benzodiazepines Scrn U Oth Cocaine Metabols U Cannabinoids Screen Alcohol, Quantitative < 10 12/27/17 15:11 WBC RBC Hgb Hct MCV MCH MCHC RDW Plt Count MPV Neut % (Auto) Lymph % (Auto) [place] % (Auto) Eos % (Auto) Baso % (Auto) Neut # (Auto) Lymph # (Auto) [place] # (Auto) Eos # (Auto) Baso # (Auto) Puncture Site pCO2 pO2 HCO3 ABG pH ABG Total CO2 ABG O2 Saturation ABG Base Excess Artis Test ABG Potassium Sodium Chloride Glucose Lactate Crit Value Called To Crit Value Called By Crit Value Read Back Blood Gas Notified Time Potassium Carbon Dioxide Anion Gap BUN Creatinine Est GFR ( Amer) Est GFR (Non-Af Amer) POC Glucose (mg/dL) Random Glucose Hemoglobin A1c Calcium Total Bilirubin AST ALT Alkaline Phosphatase Total Protein Albumin Globulin Albumin/Globulin Ratio Lipase Arterial Blood Potassium Urine Color Urine Clarity Urine pH Ur Specific [place] Urine Protein Urine Glucose (UA) Urine Ketones Urine Blood Urine Nitrate Urine Bilirubin Urine Urobilinogen Ur Leukocyte Esterase Urine WBC (Auto) Urine RBC (Auto) Ur Squamous Epith Cells Urine Opiates Screen Negative Urine Methadone Screen Negative Ur Barbiturates Screen Negative Ur Phencyclidine Scrn Negative Ur Amphetamines Screen Negative U Benzodiazepines Scrn Negative U Oth Cocaine Metabols Negative U Cannabinoids Screen Negative Alcohol, Quantitative Assessment & Plan - Assessment and Plan (Free Text) Assessment: Patient is a 57 yo male who presented with DKA. He has a h/o psych disorder (bipolar vs schizophrenia) and dementia. He has been admitted several times in the past with the same presentation (AMS, hyperglycemia) and DKA. He is chronically noncompliant. His administers his insulin and has not wanted long-term placement for the patient. Plan: DKA, acute, recurrent - Monitor in ICU - ABG pH 7.19, pO2 125, PCO2 16 - BG on admission 945 - K 6.9 - CO2 8 - AG 41 - Beta-hydroxybutyrate pending - Hypoglycemia protocol - Accuchecks Q1H - BMP Q4H - Insulin drip - NS 4L in ED - NS @ 250 mL/hr - ICU consult (Jevon) JORGE L with microscopic hematuria - BUN 75, Cr 2.8 - WBC 15.7- july - Renal/bladder u/s pending - UA: Blood 1+ - Urine Cx pending - IVF - Rocephin 1 g IV daily Essential HTN, chronic - Metoprolol succinate 25 mg PO daily - Lisinopril 10 mg PO daily- hold due to hyperkalemia CAD, chronic- h/o NSTEMI - Plavix 75 mg PO daily - ASA 81 mg PO daily - Metoprolol succinate 25 mg PO daily - Pravastatin 20 mg PO QHS Schizophrenia vs Bipolar disorder, chronic - Depakote level pending - Depakote 500 mg PO daily - Lyrica 75 mg PO TID - Abilify 5 mg PO BID - Risperdal 0.5 mg PO qhs Anemia of chronic disease, stable - Monitor H&H IVF: NS @ 250 mL/hr GI ppx: not indicated VTE ppx: Heparin 5,000 Units SC Q8H, SCDs Diet: NPO Code status: full code <Lashell Pappas V - Last Filed: 12/28/17 09:54> Results - Vital Signs Recent Vital Signs: Last Vital Signs Temp 97.5 F L 12/28/17 08:00 Pulse 72 12/28/17 08:00 Resp 9 L 12/28/17 08:00 BP 129/60 12/28/17 07:57 Pulse Ox 100 12/28/17 08:00 - Labs Result Diagrams: 12/28/17 06:33 10/25/18 06:33 Labs: Laboratory Results - last 24 hr 12/27/17 12/27/17 12/27/17 02:45 14:03 14:27 WBC 15.7 H D RBC 3.33 L Hgb 10.8 L Hct 33.2 L MCV 99.7 H D MCH 32.3 H MCHC 32.4 L RDW 13.6 Plt Count 376 D MPV 8.6 Neut % (Auto) 80.1 H Lymph % (Auto) 14.6 L [place] % (Auto) 5.0 Eos % (Auto) 0.1 Baso % (Auto) 0.2 Neut # (Auto) 12.5 H Lymph # (Auto) 2.3 [place] # (Auto) 0.8 Eos # (Auto) 0.0 Baso # (Auto) 0.0 Puncture Site Rr pCO2 16 L* pO2 125 H HCO3 9.5 L* ABG pH 7.19 L* ABG Total CO2 6.6 L ABG O2 Saturation 99.2 H ABG Base Excess -19.8 L Artis Test Pos ABG Potassium 4.9 Sodium 132.0 Chloride 95.0 L Glucose > 750 H* D Lactate 1.9 Crit Value Called To Dr zhang Crit Value Called By Ginny meyer Crit Value Read Back Y Blood Gas Notified Time 1555 Potassium Carbon Dioxide Anion Gap BUN Creatinine Est GFR ( Amer) Est GFR (Non-Af Amer) POC Glucose (mg/dL) > 500 H* Random Glucose Hemoglobin A1c Calcium Phosphorus Magnesium Total Bilirubin AST ALT Alkaline Phosphatase Total Protein Albumin Globulin Albumin/Globulin Ratio Lipase Arterial Blood Potassium 4.9 Urine Color Urine Clarity Urine pH Ur Specific [place] Urine Protein Urine Glucose (UA) Urine Ketones Urine Blood Urine Nitrate Urine Bilirubin Urine Urobilinogen Ur Leukocyte Esterase Urine WBC (Auto) Urine RBC (Auto) Ur Squamous Epith Cells Urine Opiates Screen Urine Methadone Screen Ur Barbiturates Screen Ur Phencyclidine Scrn Ur Amphetamines Screen U Benzodiazepines Scrn U Oth Cocaine Metabols U Cannabinoids Screen Alcohol, Quantitative B-Hydroxybutyrate 12/27/17 12/27/17 12/27/17 14:27 14:27 15:11 WBC RBC Hgb Hct MCV MCH MCHC RDW Plt Count MPV Neut % (Auto) Lymph % (Auto) [place] % (Auto) Eos % (Auto) Baso % (Auto) Neut # (Auto) Lymph # (Auto) [place] # (Auto) Eos # (Auto) Baso # (Auto) Puncture Site pCO2 pO2 HCO3 ABG pH ABG Total CO2 ABG O2 Saturation ABG Base Excess Artis Test ABG Potassium Sodium 131 L Chloride 89 L Glucose Lactate Crit Value Called To Crit Value Called By Crit Value Read Back Blood Gas Notified Time Potassium 6.9 H* D Carbon Dioxide 8 L* D Anion Gap 41 H BUN 75 H Creatinine 2.8 H Est GFR ( Amer) 28 Est GFR (Non-Af Amer) 23 POC Glucose (mg/dL) Random Glucose 945 H* D Hemoglobin A1c 12.3 H D Calcium 9.7 Phosphorus Magnesium Total Bilirubin 0.5 AST 32 ALT 55 Alkaline Phosphatase 230 H D Total Protein 6.6 Albumin 4.1 Globulin 2.5 Albumin/Globulin Ratio 1.6 Lipase 151 Arterial Blood Potassium Urine Color Yellow Urine Clarity Clear Urine pH 5.0 Ur Specific [place] 1.020 Urine Protein Negative Urine Glucose (UA) 3+ H Urine Ketones 1+ H Urine Blood 1+ H Urine Nitrate Negative Urine Bilirubin Negative Urine Urobilinogen Normal Ur Leukocyte Esterase Neg Urine WBC (Auto) 1 Urine RBC (Auto) 4 H Ur Squamous Epith Cells < 1 Urine Opiates Screen Urine Methadone Screen Ur Barbiturates Screen Ur Phencyclidine Scrn Ur Amphetamines Screen U Benzodiazepines Scrn U Oth Cocaine Metabols U Cannabinoids Screen Alcohol, Quantitative < 10 B-Hydroxybutyrate 12/27/17 12/27/17 12/27/17 15:11 15:27 16:36 WBC RBC Hgb Hct MCV MCH MCHC RDW Plt Count MPV Neut % (Auto) Lymph % (Auto) [place] % (Auto) Eos % (Auto) Baso % (Auto) Neut # (Auto) Lymph # (Auto) [place] # (Auto) Eos # (Auto) Baso # (Auto) Puncture Site pCO2 pO2 HCO3 ABG pH ABG Total CO2 ABG O2 Saturation ABG Base Excess Artis Test ABG Potassium Sodium Chloride Glucose Lactate Crit Value Called To Crit Value Called By Crit Value Read Back Blood Gas Notified Time Potassium Carbon Dioxide Anion Gap BUN Creatinine Est GFR ( Amer) Est GFR (Non-Af Amer) POC Glucose (mg/dL) > 500 H* > 500 H* Random Glucose Hemoglobin A1c Calcium Phosphorus Magnesium Total Bilirubin AST ALT Alkaline Phosphatase Total Protein Albumin Globulin Albumin/Globulin Ratio Lipase Arterial Blood Potassium Urine Color Urine Clarity Urine pH Ur Specific [place] Urine Protein Urine Glucose (UA) Urine Ketones Urine Blood Urine Nitrate Urine Bilirubin Urine Urobilinogen Ur Leukocyte Esterase Urine WBC (Auto) Urine RBC (Auto) Ur Squamous Epith Cells Urine Opiates Screen Negative Urine Methadone Screen Negative Ur Barbiturates Screen Negative Ur Phencyclidine Scrn Negative Ur Amphetamines Screen Negative U Benzodiazepines Scrn Negative U Oth Cocaine Metabols Negative U Cannabinoids Screen Negative Alcohol, Quantitative B-Hydroxybutyrate 12/27/17 12/27/17 12/27/17 18:08 18:18 18:53 WBC RBC Hgb Hct MCV MCH MCHC RDW Plt Count MPV Neut % (Auto) Lymph % (Auto) [place] % (Auto) Eos % (Auto) Baso % (Auto) Neut # (Auto) Lymph # (Auto) [place] # (Auto) Eos # (Auto) Baso # (Auto) Puncture Site pCO2 pO2 HCO3 ABG pH ABG Total CO2 ABG O2 Saturation ABG Base Excess Artis Test ABG Potassium Sodium 141 Chloride 103 Glucose Lactate Crit Value Called To Crit Value Called By Crit Value Read Back Blood Gas Notified Time Potassium 4.0 Carbon Dioxide 8 L* Anion Gap 33 H BUN 67 H Creatinine 2.5 H Est GFR ( Amer) 32 Est GFR (Non-Af Amer) 27 POC Glucose (mg/dL) > 500 H* 459 H* Random Glucose 544 H* D Hemoglobin A1c Calcium 8.9 Phosphorus Magnesium Total Bilirubin AST ALT Alkaline Phosphatase Total Protein Albumin Globulin Albumin/Globulin Ratio Lipase Arterial Blood Potassium Urine Color Urine Clarity Urine pH Ur Specific [place] Urine Protein Urine Glucose (UA) Urine Ketones Urine Blood Urine Nitrate Urine Bilirubin Urine Urobilinogen Ur Leukocyte Esterase Urine WBC (Auto) Urine RBC (Auto) Ur Squamous Epith Cells Urine Opiates Screen Urine Methadone Screen Ur Barbiturates Screen Ur Phencyclidine Scrn Ur Amphetamines Screen U Benzodiazepines Scrn U Oth Cocaine Metabols U Cannabinoids Screen Alcohol, Quantitative B-Hydroxybutyrate > 6.00 H 12/27/17 12/27/17 12/27/17 20:08 21:03 22:04 WBC RBC Hgb Hct MCV MCH MCHC RDW Plt Count MPV Neut % (Auto) Lymph % (Auto) [place] % (Auto) Eos % (Auto) Baso % (Auto) Neut # (Auto) Lymph # (Auto) [place] # (Auto) Eos # (Auto) Baso # (Auto) Puncture Site pCO2 pO2 HCO3 ABG pH ABG Total CO2 ABG O2 Saturation ABG Base Excess Artis Test ABG Potassium Sodium Chloride Glucose Lactate Crit Value Called To Crit Value Called By Crit Value Read Back Blood Gas Notified Time Potassium Carbon Dioxide Anion Gap BUN Creatinine Est GFR ( Amer) Est GFR (Non-Af Amer) POC Glucose (mg/dL) 306 H 220 H 164 H Random Glucose Hemoglobin A1c Calcium Phosphorus Magnesium Total Bilirubin AST ALT Alkaline Phosphatase Total Protein Albumin Globulin Albumin/Globulin Ratio Lipase Arterial Blood Potassium Urine Color Urine Clarity Urine pH Ur Specific [place] Urine Protein Urine Glucose (UA) Urine Ketones Urine Blood Urine Nitrate Urine Bilirubin Urine Urobilinogen Ur Leukocyte Esterase Urine WBC (Auto) Urine RBC (Auto) Ur Squamous Epith Cells Urine Opiates Screen Urine Methadone Screen Ur Barbiturates Screen Ur Phencyclidine Scrn Ur Amphetamines Screen U Benzodiazepines Scrn U Oth Cocaine Metabols U Cannabinoids Screen Alcohol, Quantitative B-Hydroxybutyrate 12/27/17 12/27/17 12/28/17 22:47 23:02 00:07 WBC RBC Hgb Hct MCV MCH MCHC RDW Plt Count MPV Neut % (Auto) Lymph % (Auto) [place] % (Auto) Eos % (Auto) Baso % (Auto) Neut # (Auto) Lymph # (Auto) [place] # (Auto) Eos # (Auto) Baso # (Auto) Puncture Site pCO2 pO2 HCO3 ABG pH ABG Total CO2 ABG O2 Saturation ABG Base Excess Artis Test ABG Potassium Sodium 142 Chloride 118 H Glucose Lactate Crit Value Called To Crit Value Called By Crit Value Read Back Blood Gas Notified Time Potassium 4.0 Carbon Dioxide 14 L Anion Gap 15 BUN 50 H Creatinine 1.4 Est GFR ( Amer) > 60 Est GFR (Non-Af Amer) 52 POC Glucose (mg/dL) 142 H 111 H Random Glucose 104 Hemoglobin A1c Calcium 6.6 L Phosphorus Magnesium Total Bilirubin AST ALT Alkaline Phosphatase Total Protein Albumin Globulin Albumin/Globulin Ratio Lipase Arterial Blood Potassium Urine Color Urine Clarity Urine pH Ur Specific [place] Urine Protein Urine Glucose (UA) Urine Ketones Urine Blood Urine Nitrate Urine Bilirubin Urine Urobilinogen Ur Leukocyte Esterase Urine WBC (Auto) Urine RBC (Auto) Ur Squamous Epith Cells Urine Opiates Screen Urine Methadone Screen Ur Barbiturates Screen Ur Phencyclidine Scrn Ur Amphetamines Screen U Benzodiazepines Scrn U Oth Cocaine Metabols U Cannabinoids Screen Alcohol, Quantitative B-Hydroxybutyrate 12/28/17 12/28/17 12/28/17 01:09 02:13 03:03 WBC RBC Hgb Hct MCV MCH MCHC RDW Plt Count MPV Neut % (Auto) Lymph % (Auto) [place] % (Auto) Eos % (Auto) Baso % (Auto) Neut # (Auto) Lymph # (Auto) [place] # (Auto) Eos # (Auto) Baso # (Auto) Puncture Site pCO2 pO2 HCO3 ABG pH ABG Total CO2 ABG O2 Saturation ABG Base Excess Artis Test ABG Potassium Sodium Chloride Glucose Lactate Crit Value Called To Crit Value Called By Crit Value Read Back Blood Gas Notified Time Potassium Carbon Dioxide Anion Gap BUN Creatinine Est GFR ( Amer) Est GFR (Non-Af Amer) POC Glucose (mg/dL) 127 H 64 L 99 Random Glucose Hemoglobin A1c Calcium Phosphorus Magnesium Total Bilirubin AST ALT Alkaline Phosphatase Total Protein Albumin Globulin Albumin/Globulin Ratio Lipase Arterial Blood Potassium Urine Color Urine Clarity Urine pH Ur Specific [place] Urine Protein Urine Glucose (UA) Urine Ketones Urine Blood Urine Nitrate Urine Bilirubin Urine Urobilinogen Ur Leukocyte Esterase Urine WBC (Auto) Urine RBC (Auto) Ur Squamous Epith Cells Urine Opiates Screen Urine Methadone Screen Ur Barbiturates Screen Ur Phencyclidine Scrn Ur Amphetamines Screen U Benzodiazepines Scrn U Oth Cocaine Metabols U Cannabinoids Screen Alcohol, Quantitative B-Hydroxybutyrate 12/28/17 12/28/17 12/28/17 04:02 05:11 06:07 WBC RBC Hgb Hct MCV MCH MCHC RDW Plt Count MPV Neut % (Auto) Lymph % (Auto) [place] % (Auto) Eos % (Auto) Baso % (Auto) Neut # (Auto) Lymph # (Auto) [place] # (Auto) Eos # (Auto) Baso # (Auto) Puncture Site pCO2 pO2 HCO3 ABG pH ABG Total CO2 ABG O2 Saturation ABG Base Excess Artis Test ABG Potassium Sodium Chloride Glucose Lactate Crit Value Called To Crit Value Called By Crit Value Read Back Blood Gas Notified Time Potassium Carbon Dioxide Anion Gap BUN Creatinine Est GFR ( Amer) Est GFR (Non-Af Amer) POC Glucose (mg/dL) 70 144 H 79 Random Glucose Hemoglobin A1c Calcium Phosphorus Magnesium Total Bilirubin AST ALT Alkaline Phosphatase Total Protein Albumin Globulin Albumin/Globulin Ratio Lipase Arterial Blood Potassium Urine Color Urine Clarity Urine pH Ur Specific [place] Urine Protein Urine Glucose (UA) Urine Ketones Urine Blood Urine Nitrate Urine Bilirubin Urine Urobilinogen Ur Leukocyte Esterase Urine WBC (Auto) Urine RBC (Auto) Ur Squamous Epith Cells Urine Opiates Screen Urine Methadone Screen Ur Barbiturates Screen Ur Phencyclidine Scrn Ur Amphetamines Screen U Benzodiazepines Scrn U Oth Cocaine Metabols U Cannabinoids Screen Alcohol, Quantitative B-Hydroxybutyrate 12/28/17 12/28/17 12/28/17 06:33 06:33 06:50 WBC 11.4 H RBC 2.73 L Hgb 8.8 L D Hct 25.5 L MCV 93.4 D MCH 32.1 H MCHC 34.3 RDW 13.3 Plt Count 263 D MPV 8.2 Neut % (Auto) 68.1 Lymph % (Auto) 24.3 [place] % (Auto) 6.1 Eos % (Auto) 0.9 Baso % (Auto) 0.6 Neut # (Auto) 7.8 H Lymph # (Auto) 2.8 [place] # (Auto) 0.7 Eos # (Auto) 0.1 Baso # (Auto) 0.1 Puncture Site pCO2 pO2 HCO3 ABG pH ABG Total CO2 ABG O2 Saturation ABG Base Excess Artis Test ABG Potassium Sodium 142 Chloride 112 H Glucose Lactate Crit Value Called To Crit Value Called By Crit Value Read Back Blood Gas Notified Time Potassium 4.7 Carbon Dioxide 24 Anion Gap 11 BUN 57 H Creatinine 1.6 H Est GFR ( Amer) 54 Est GFR (Non-Af Amer) 45 POC Glucose (mg/dL) 90 Random Glucose 128 H Hemoglobin A1c Calcium 8.3 L Phosphorus 1.9 L Magnesium 2.2 Total Bilirubin 0.2 AST 19 ALT 39 Alkaline Phosphatase 144 H D Total Protein 5.1 L Albumin 2.7 L D Globulin 2.4 Albumin/Globulin Ratio 1.1 Lipase Arterial Blood Potassium Urine Color Urine Clarity Urine pH Ur Specific [place] Urine Protein Urine Glucose (UA) Urine Ketones Urine Blood Urine Nitrate Urine Bilirubin Urine Urobilinogen Ur Leukocyte Esterase Urine WBC (Auto) Urine RBC (Auto) Ur Squamous Epith Cells Urine Opiates Screen Urine Methadone Screen Ur Barbiturates Screen Ur Phencyclidine Scrn Ur Amphetamines Screen U Benzodiazepines Scrn U Oth Cocaine Metabols U Cannabinoids Screen Alcohol, Quantitative B-Hydroxybutyrate Attending/Attestation - Attestation I have personally seen and examined this patient.: Yes I have fully participated in the care of the patient.: Yes I have reviewed all pertinent clinical information: Yes Notes (Text): This is late computer entry for 12/27/17. Patient seen, examined, and case discussed with day-time resident. Patient seen in [facility] Bed 4 in the Emergency Room with ICU. Patient is lethargic, tired. No family accompanied at bedside. Patient remembers me from before. Per review of EMR, patient with known history of noncompliance with medications has had frequent visits to the hospital for DKA. Per ED triage, pt brougth in via EMS c/o of falilure to thrive with increase confusion. Upon arrival blood sugar >500. Patient admitted to the ICU for DKA. Assessment/Plan 1. History of Uncontrolled Diabetes Mellitus, non-compliant Diabetic Ketoacidosis * Admitted to ICU * Fluid resuscitation * Insulin drip * Accuchecks Q2H * NPO * BMP Q4H * Management per ICU * Accuchecks QAC and H * Hold Lisinopril to prevent hyperkalemia * Hypoglycemic protocol 2. Schizophrenia and Bipolar disorder Aggressive Behavior History of Dementia * Abilify 5mg PO BID * Depakote 500 mg PO daily 3. Hyperkalemia * Likely secondary to DKA * D/c Lisinopril se: hyperkalemia 4. Normacytic Anemia (Stable) * Chronic in nature, Hgb at baseline * No active bleeding at this time * Will continue to monitor 5. History of Coronary Artery Disease * Continue ASA and plavix daily 6. History of Hypertension * Hold Toprol XL 25mg PO daily 7. History of Hyperlipidemia * Crestor 2.5mg daily * Lipid panel from 02/2017 * Triglycerides - 225 * Cholesterol - 209 * LDL - 101 * HDL - 56 8. Acute Renal Insufficiency * Fluid resuscitation 9. Abnormal UA * awaiting urine culture * start Rocephin 1 gram IV q daily for empiric antibiotic coverage 10. Prophylactic measures * Heparin 5000 units subq8H
--- NOTE | 2017-12-27 15:53 | CP.PCM.CON ---
<Jerilyn Palacio - Last Filed: 12/27/17 17:38> History of Present Illness - History of Present Illness History of Present Illness: Patient is a 57 yo male with dementia and multiple hospitalizations due to DKA who presented to the ED with elevated blood glucose and AMS. Patient is unable to provide history 2/2 to lethargic state as well as baseline dementia. Information is obtained from prior records. Patient has a history of chronic noncompliance. His most recent hospitalization was last month for DKA. There have been discussions with the patient's regarding [place] [facility] [place], which she did not want to pursue. Patient was set up with visiting nursing services during a previous admission. PMH: T2DM- multiple DKA episodes CAD NSTEMI Systolic CHF (HFrEF) HTN JORGE L Dementia Schizophrenia vs bipolar disorder Anemia of chronic disease H/o alcohol use disorder with seizures Meds: Januvia 50 mg PO daily Levemir 17 units SC BID Novolog sliding scale Metoprolol 25 mg daily Lisinopril 10 mg PO daily Pravastatin 20 mg PO QHS Plavix 75 mg PO daily ASA 81 mg PO daily Abilify 5 mg PO BID Risperdal 0.5 mg PO QHS Lyrica 75 mg PO TID Depakote 500 mg PO BID All: NKA FH: unable to obtain SH: lives with with home visiting nursing services Previous heavy alcohol use No known tobacco or illicit drug use PMD: Dr. Gaona Review of Systems - Review of Systems Systems not reviewed;Unavailable: Dementia, Altered Mental Status Past Patient History - Infectious Disease Hx of Infectious Diseases: None - Tetanus Immunizations Tetanus Immunization: Unknown - Past Medical History & Family History Past Medical History?: Yes - Past Social History Smoking Status: Never Smoked Chewing Tobacco Use: No Cigar Use: No Alcohol: Other (former heavy use) Drugs: Denies Home Situation {Lives}: With Family - CARDIAC Hx Congestive Heart Failure: Yes Hx Hypertension: Yes - PULMONARY Hx Respiratory Disorders: No Hx Tuberculosis: No - NEUROLOGICAL Hx Dementia: Yes Hx Seizures: No - HEENT Hx HEENT Problems: No - RENAL Hx Chronic Kidney Disease: No Hx Kidney Stones: No - ENDOCRINE/METABOLIC Hx Diabetes Mellitus Type 2: Yes - HEMATOLOGICAL/ONCOLOGICAL Hx Anemia: Yes Hx Human Immunodeficiency Virus (HIV): No - INTEGUMENTARY Hx Dermatological Problems: No - MUSCULOSKELETAL/RHEUMATOLOGICAL Hx Fractures: Yes (Skull) - GASTROINTESTINAL Hx Gastrointestinal Disorders: Yes HX Swallowing Problems: Yes - GENITOURINARY/GYNECOLOGICAL Hx Sexually Transmitted Disorders: No - PSYCHIATRIC Hx Anxiety: Yes Hx Bipolar Disorder: Yes Hx Depression: Yes Hx Schizophrenia: Yes Hx Substance Use: No - SURGICAL HISTORY Hx Surgeries: Yes Other/Comment: metal plates in head (skull fx) - ANESTHESIA Hx Anesthesia: Yes Hx Anesthesia Reactions: No Hx Malignant Hyperthermia: No Meds Allergies/Adverse Reactions: Allergies Allergy/AdvReac Type Severity Reaction Status Date / Time No Known Allergies Allergy Verified 12/27/17 14:06 - Medications Medications: Current Medications Insulin Human Regular 100 unit (/ Sodium Chloride) 100 mls @ 10 mls/hr IV .Q10H STA Stop: 12/28/17 00:08 Last Admin: 12/27/17 14:59 Dose: 10 mls/hr Sodium Chloride (Sodium Chloride 0.9%) 1,000 mls @ 1,000 mls/hr IV .Q1H ONE Stop: 12/27/17 16:05 Last Admin: 12/27/17 15:20 Dose: 1,000 mls/hr Physical Exam - Constitutional Appears: No Acute Distress, Older Than Stated Age, Confused, Chronically Ill - Head Exam Head Exam: ATRAUMATIC, NORMAL INSPECTION - Eye Exam Eye Exam: EOMI, Normal appearance, PERRL - ENT Exam ENT Exam: Mucous Membranes Dry - Neck Exam Neck exam: Positive for: Normal Inspection - Respiratory Exam Respiratory Exam: Clear to Auscultation Bilateral, NORMAL BREATHING PATTERN. absent: Respiratory Distress - Cardiovascular Exam Cardiovascular Exam: REGULAR RHYTHM, +S1, +S2 - GI/Abdominal Exam GI & Abdominal Exam: Normal Bowel Sounds, Soft. absent: Tenderness - Rectal Exam Rectal Exam: Deferred - Extremities Exam Extremities exam: Positive for: normal inspection - Neurological Exam Neurological exam: Alert, Altered, CN II-XII Intact - Skin Skin Exam: Dry, Normal Color, Warm Results - Vital Signs Recent Vital Signs: Last Vital Signs Temp 98.3 F 12/27/17 14:09 Pulse 98 H 12/27/17 15:19 Resp 20 12/27/17 15:19 BP 97/58 L 12/27/17 15:19 Pulse Ox 100 12/27/17 15:42 - Labs Result Diagrams: 12/27/17 14:27 12/27/17 14:27 Labs: Laboratory Results - last 24 hr 12/27/17 12/27/17 12/27/17 02:45 14:03 14:27 WBC 15.7 H D RBC 3.33 L Hgb 10.8 L Hct 33.2 L MCV 99.7 H D MCH 32.3 H MCHC 32.4 L RDW 13.6 Plt Count 376 D MPV 8.6 Neut % (Auto) 80.1 H Lymph % (Auto) 14.6 L [place] % (Auto) 5.0 Eos % (Auto) 0.1 Baso % (Auto) 0.2 Neut # (Auto) 12.5 H Lymph # (Auto) 2.3 [place] # (Auto) 0.8 Eos # (Auto) 0.0 Baso # (Auto) 0.0 Puncture Site Rr pCO2 16 L* pO2 125 H HCO3 9.5 L* ABG pH 7.19 L* ABG Total CO2 6.6 L ABG O2 Saturation 99.2 H ABG Base Excess -19.8 L Artis Test Pos ABG Potassium 4.9 Sodium 132.0 Chloride 95.0 L Glucose > 750 H* D Lactate 1.9 Crit Value Called To Dr zhang Crit Value Called By Ginny meyer Crit Value Read Back Y Blood Gas Notified Time 1555 Potassium Carbon Dioxide Anion Gap BUN Creatinine Est GFR ( Amer) Est GFR (Non-Af Amer) POC Glucose (mg/dL) > 500 H* Random Glucose Hemoglobin A1c Calcium Total Bilirubin AST ALT Alkaline Phosphatase Total Protein Albumin Globulin Albumin/Globulin Ratio Lipase Arterial Blood Potassium 4.9 Urine Color Urine Clarity Urine pH Ur Specific [place] Urine Protein Urine Glucose (UA) Urine Ketones Urine Blood Urine Nitrate Urine Bilirubin Urine Urobilinogen Ur Leukocyte Esterase Urine WBC (Auto) Urine RBC (Auto) Ur Squamous Epith Cells Urine Opiates Screen Urine Methadone Screen Ur Barbiturates Screen Ur Phencyclidine Scrn Ur Amphetamines Screen U Benzodiazepines Scrn U Oth Cocaine Metabols U Cannabinoids Screen Alcohol, Quantitative 12/27/17 12/27/17 12/27/17 14:27 14:27 15:11 WBC RBC Hgb Hct MCV MCH MCHC RDW Plt Count MPV Neut % (Auto) Lymph % (Auto) [place] % (Auto) Eos % (Auto) Baso % (Auto) Neut # (Auto) Lymph # (Auto) [place] # (Auto) Eos # (Auto) Baso # (Auto) Puncture Site pCO2 pO2 HCO3 ABG pH ABG Total CO2 ABG O2 Saturation ABG Base Excess Artis Test ABG Potassium Sodium 131 L Chloride 89 L Glucose Lactate Crit Value Called To Crit Value Called By Crit Value Read Back Blood Gas Notified Time Potassium 6.9 H* D Carbon Dioxide 8 L* D Anion Gap 41 H BUN 75 H Creatinine 2.8 H Est GFR ( Amer) 28 Est GFR (Non-Af Amer) 23 POC Glucose (mg/dL) Random Glucose 945 H* D Hemoglobin A1c 12.3 H D Calcium 9.7 Total Bilirubin 0.5 AST 32 ALT 55 Alkaline Phosphatase 230 H D Total Protein 6.6 Albumin 4.1 Globulin 2.5 Albumin/Globulin Ratio 1.6 Lipase 151 Arterial Blood Potassium Urine Color Yellow Urine Clarity Clear Urine pH 5.0 Ur Specific [place] 1.020 Urine Protein Negative Urine Glucose (UA) 3+ H Urine Ketones 1+ H Urine Blood 1+ H Urine Nitrate Negative Urine Bilirubin Negative Urine Urobilinogen Normal Ur Leukocyte Esterase Neg Urine WBC (Auto) 1 Urine RBC (Auto) 4 H Ur Squamous Epith Cells < 1 Urine Opiates Screen Urine Methadone Screen Ur Barbiturates Screen Ur Phencyclidine Scrn Ur Amphetamines Screen U Benzodiazepines Scrn U Oth Cocaine Metabols U Cannabinoids Screen Alcohol, Quantitative < 10 12/27/17 15:11 WBC RBC Hgb Hct MCV MCH MCHC RDW Plt Count MPV Neut % (Auto) Lymph % (Auto) [place] % (Auto) Eos % (Auto) Baso % (Auto) Neut # (Auto) Lymph # (Auto) [place] # (Auto) Eos # (Auto) Baso # (Auto) Puncture Site pCO2 pO2 HCO3 ABG pH ABG Total CO2 ABG O2 Saturation ABG Base Excess Artis Test ABG Potassium Sodium Chloride Glucose Lactate Crit Value Called To Crit Value Called By Crit Value Read Back Blood Gas Notified Time Potassium Carbon Dioxide Anion Gap BUN Creatinine Est GFR ( Amer) Est GFR (Non-Af Amer) POC Glucose (mg/dL) Random Glucose Hemoglobin A1c Calcium Total Bilirubin AST ALT Alkaline Phosphatase Total Protein Albumin Globulin Albumin/Globulin Ratio Lipase Arterial Blood Potassium Urine Color Urine Clarity Urine pH Ur Specific [place] Urine Protein Urine Glucose (UA) Urine Ketones Urine Blood Urine Nitrate Urine Bilirubin Urine Urobilinogen Ur Leukocyte Esterase Urine WBC (Auto) Urine RBC (Auto) Ur Squamous Epith Cells Urine Opiates Screen Negative Urine Methadone Screen Negative Ur Barbiturates Screen Negative Ur Phencyclidine Scrn Negative Ur Amphetamines Screen Negative U Benzodiazepines Scrn Negative U Oth Cocaine Metabols Negative U Cannabinoids Screen Negative Alcohol, Quantitative Assessment & Plan - Assessment and Plan (Free Text) Assessment: Patient is a 57 yo male who presented with DKA. He has a h/o psych disorder (bipolar vs schizophrenia) and dementia. He has been admitted several times in the past with the same presentation (AMS, hyperglycemia) and DKA. He is chronically noncompliant. His administers his insulin and has not wanted long-term placement for the patient. Plan: Neuro: - Baseline dementia- oriented to person - Monitor mental status CV: - Monitor vitals - Metoprolol succinate 25 mg PO daily - Lisinopril 10 mg PO daily- hold due to hyperkalemia - Plavix 75 mg PO daily - ASA 81 mg PO daily - Pravastatin 20 mg PO QHS Pulm: - Maintain spO2>92%- NC PRN GI: - NPO : - BUN 75, Cr 2.8 - WBC 15.7- may - Renal/bladder u/s pending - UA: Blood 1+ - Urine Cx pending - IVF - Rocephin 1 g IV daily Endo: DKA - ABG pH 7.19, pO2 125, PCO2 16 - BG on admission 945 - K 6.9 - CO2 8 - AG 41 - Beta-hydroxybutyrate pending - Hypoglycemia protocol - Accuchecks Q1H - BMP Q4H - Insulin drip - NS 4L in ED - NS @ 250 mL/hr Heme: - Hgb at baseline - Monitor H&H Psych: - Depakote level pending - Depakote 500 mg PO daily - Lyrica 75 mg PO TID - Abilify 5 mg PO BID - Risperdal 0.5 mg PO qhs Ppx: VTE: SCDs, heparin 5000 units Q8H GI: not indicated IVF: NS @ 250 mL/hr Code status: full code Case discussed with attending, Dr. Escoto. PGY-1 Jerilyn Palacio D.O. <Reynaldo Escoto - Last Filed: 12/27/17 18:11> Meds - Medications Medications: Current Medications Aripiprazole (Abilify) 5 mg PO BID [facility] Aspirin (Ecotrin) 81 mg PO DAILY [facility] Clopidogrel Bisulfate (Plavix) 75 mg PO DAILY [facility] Divalproex Sodium (Depakote Er) 500 mg PO DAILY [facility] Heparin Sodium (Porcine) (Heparin) 5,000 units SC Q8 [facility] Insulin Human Regular 100 unit (/ Sodium Chloride) 100 mls @ 10 mls/hr IV .Q10H STA Stop: 12/28/17 00:08 Last Admin: 12/27/17 14:59 Dose: 10 mls/hr Ceftriaxone Sodium 1 gm/ (Sodium Chloride) 100 mls @ 100 mls/hr IVPB DAILY [facility]; Protocol Sodium Chloride (Sodium Chloride 0.9%) 1,000 mls @ 250 mls/hr IV .Q4H [facility] Last Admin: 12/27/17 17:57 Dose: 250 mls/hr Metoprolol Succinate (Toprol Xl) 25 mg PO DAILY [facility] Pregabalin (Lyrica) 75 mg PO TID [facility] Risperidone (Risperdal Tab) 0.5 mg PO HS [facility] Rosuvastatin Calcium (Crestor) 2.5 mg PO HS [facility] Results - Vital Signs Recent Vital Signs: Last Vital Signs Temp 97.4 F L 12/27/17 16:30 Pulse 90 12/27/17 16:30 Resp 16 12/27/17 16:30 BP 142/60 12/27/17 16:30 Pulse Ox 100 12/27/17 16:30 - Labs Result Diagrams: 12/27/17 14:27 12/27/17 14:27 Labs: Laboratory Results - last 24 hr 12/27/17 12/27/17 12/27/17 02:45 14:03 14:27 WBC 15.7 H D RBC 3.33 L Hgb 10.8 L Hct 33.2 L MCV 99.7 H D MCH 32.3 H MCHC 32.4 L RDW 13.6 Plt Count 376 D MPV 8.6 Neut % (Auto) 80.1 H Lymph % (Auto) 14.6 L [place] % (Auto) 5.0 Eos % (Auto) 0.1 Baso % (Auto) 0.2 Neut # (Auto) 12.5 H Lymph # (Auto) 2.3 [place] # (Auto) 0.8 Eos # (Auto) 0.0 Baso # (Auto) 0.0 Puncture Site Rr pCO2 16 L* pO2 125 H HCO3 9.5 L* ABG pH 7.19 L* ABG Total CO2 6.6 L ABG O2 Saturation 99.2 H ABG Base Excess -19.8 L Artis Test Pos ABG Potassium 4.9 Sodium 132.0 Chloride 95.0 L Glucose > 750 H* D Lactate 1.9 Crit Value Called To Dr zhang Crit Value Called By Ginny meyer Crit Value Read Back Y Blood Gas Notified Time 1555 Potassium Carbon Dioxide Anion Gap BUN Creatinine Est GFR ( Amer) Est GFR (Non-Af Amer) POC Glucose (mg/dL) > 500 H* Random Glucose Hemoglobin A1c Calcium Total Bilirubin AST ALT Alkaline Phosphatase Total Protein Albumin Globulin Albumin/Globulin Ratio Lipase Arterial Blood Potassium 4.9 Urine Color Urine Clarity Urine pH Ur Specific [place] Urine Protein Urine Glucose (UA) Urine Ketones Urine Blood Urine Nitrate Urine Bilirubin Urine Urobilinogen Ur Leukocyte Esterase Urine WBC (Auto) Urine RBC (Auto) Ur Squamous Epith Cells Urine Opiates Screen Urine Methadone Screen Ur Barbiturates Screen Ur Phencyclidine Scrn Ur Amphetamines Screen U Benzodiazepines Scrn U Oth Cocaine Metabols U Cannabinoids Screen Alcohol, Quantitative 12/27/17 12/27/17 12/27/17 14:27 14:27 15:11 WBC RBC Hgb Hct MCV MCH MCHC RDW Plt Count MPV Neut % (Auto) Lymph % (Auto) [place] % (Auto) Eos % (Auto) Baso % (Auto) Neut # (Auto) Lymph # (Auto) [place] # (Auto) Eos # (Auto) Baso # (Auto) Puncture Site pCO2 pO2 HCO3 ABG pH ABG Total CO2 ABG O2 Saturation ABG Base Excess Artis Test ABG Potassium Sodium 131 L Chloride 89 L Glucose Lactate Crit Value Called To Crit Value Called By Crit Value Read Back Blood Gas Notified Time Potassium 6.9 H* D Carbon Dioxide 8 L* D Anion Gap 41 H BUN 75 H Creatinine 2.8 H Est GFR ( Amer) 28 Est GFR (Non-Af Amer) 23 POC Glucose (mg/dL) Random Glucose 945 H* D Hemoglobin A1c 12.3 H D Calcium 9.7 Total Bilirubin 0.5 AST 32 ALT 55 Alkaline Phosphatase 230 H D Total Protein 6.6 Albumin 4.1 Globulin 2.5 Albumin/Globulin Ratio 1.6 Lipase 151 Arterial Blood Potassium Urine Color Yellow Urine Clarity Clear Urine pH 5.0 Ur Specific [place] 1.020 Urine Protein Negative Urine Glucose (UA) 3+ H Urine Ketones 1+ H Urine Blood 1+ H Urine Nitrate Negative Urine Bilirubin Negative Urine Urobilinogen Normal Ur Leukocyte Esterase Neg Urine WBC (Auto) 1 Urine RBC (Auto) 4 H Ur Squamous Epith Cells < 1 Urine Opiates Screen Urine Methadone Screen Ur Barbiturates Screen Ur Phencyclidine Scrn Ur Amphetamines Screen U Benzodiazepines Scrn U Oth Cocaine Metabols U Cannabinoids Screen Alcohol, Quantitative < 10 12/27/17 12/27/17 12/27/17 15:11 15:27 16:36 WBC RBC Hgb Hct MCV MCH MCHC RDW Plt Count MPV Neut % (Auto) Lymph % (Auto) [place] % (Auto) Eos % (Auto) Baso % (Auto) Neut # (Auto) Lymph # (Auto) [place] # (Auto) Eos # (Auto) Baso # (Auto) Puncture Site pCO2 pO2 HCO3 ABG pH ABG Total CO2 ABG O2 Saturation ABG Base Excess Artis Test ABG Potassium Sodium Chloride Glucose Lactate Crit Value Called To Crit Value Called By Crit Value Read Back Blood Gas Notified Time Potassium Carbon Dioxide Anion Gap BUN Creatinine Est GFR ( Amer) Est GFR (Non-Af Amer) POC Glucose (mg/dL) > 500 H* > 500 H* Random Glucose Hemoglobin A1c Calcium Total Bilirubin AST ALT Alkaline Phosphatase Total Protein Albumin Globulin Albumin/Globulin Ratio Lipase Arterial Blood Potassium Urine Color Urine Clarity Urine pH Ur Specific [place] Urine Protein Urine Glucose (UA) Urine Ketones Urine Blood Urine Nitrate Urine Bilirubin Urine Urobilinogen Ur Leukocyte Esterase Urine WBC (Auto) Urine RBC (Auto) Ur Squamous Epith Cells Urine Opiates Screen Negative Urine Methadone Screen Negative Ur Barbiturates Screen Negative Ur Phencyclidine Scrn Negative Ur Amphetamines Screen Negative U Benzodiazepines Scrn Negative U Oth Cocaine Metabols Negative U Cannabinoids Screen Negative Alcohol, Quantitative Attending/Attestation - Attestation I have personally seen and examined this patient.: Yes I have fully participated in the care of the patient.: Yes I have reviewed all pertinent clinical information: Yes Notes (Text): 12/27/17 18:11 patient seen and examined 57-year-old male admitted with DKA IV fluids Insulin drip Monitor Accu-Chek every hour Monitor anion gap, potassium every 4 hours Beta hydroxybutyrate
--- NOTE | 2017-12-27 16:01 | RAD ---
HISTORY: adm COMPARISON: Chest x-ray performed 10/06/17 TECHNIQUE: Chest, one view. FINDINGS: Examination limited by habitus. LUNGS: No focal consolidation. Please note that chest x-ray has limited sensitivity for the detection of pulmonary masses. PLEURA: No significant pleural effusion identified. No definite pneumothorax . CARDIOVASCULAR: The cardiomediastinal silhouette appears within normal limits of size. No significant atherosclerotic calcification present. OSSEOUS STRUCTURES: Degenerative changes. VISUALIZED UPPER ABDOMEN: Unremarkable. OTHER FINDINGS: None. IMPRESSION: No focal consolidation, significant pleural effusion, or definite pneumothorax identified.
[2017-12-27] MEDS ORDERED: Sodium Chloride 0.9% 1,000 ML IV SCH (17:45)
[2017-12-27] MEDS ORDERED: Divalproex 500 mg ER Tab PO SCH (18:00)
[2017-12-27] MEDS ORDERED: Calcium Gluconate 4.65 mEq/10 ml Inj IVP ONE (18:10)
[2017-12-27 18:55] LABS: BLOOD UREA NITROGEN 67 mg/dL (9-20); CALCIUM 8.9 mg/dl (8.6-10.4); GFR NON-AFRICAN AMERICAN 27
[2017-12-27] MEDS ORDERED: Potassium Chloride 40 MEQ in Sodium Chloride 0.45% 1,000 ML IV SCH (19:00)
[2017-12-27] MEDS: Rosuvastatin Calcium 2.5 mg Tab PO SCH (21:16)
[2017-12-27] MEDS: Clotrimazole 1% Cream(30 gm) TOP SCH (22:37)
[2017-12-27 23:09] LABS: BLOOD UREA NITROGEN 50 mg/dL (9-20); CALCIUM 6.6 mg/dl (8.6-10.4); GFR NON-AFRICAN AMERICAN 52
[2017-12-28] MEDS ORDERED: Insulin Detemir 100 units/ml Vial (Levemir) SC ONE (00:54)
[2017-12-28] MEDS: Potassium Chloride 20 MEQ in Dextrose 5%/0.45% NS 1,000 ML IV SCH ×2 (02:01→09:43)
[2017-12-28 06:57] LABS: BASO # 0.1 K/uL (0.0-0.2); BASO % 0.6 % (0.0-2.0); EOS # 0.1 K/uL (0.0-0.7); EOS % 0.9 % (0.0-4.0); HEMOGLOBIN 8.8 g/dL (12.0-18.0); LYMPH # 2.8 K/uL (1.0-4.3); LYMPH % 24.3 % (20.0-40.0); MEAN CELL VOLUME 93.4 fL (80.0-94.0); MEAN CORPUSCULAR HEMOGLOBIN 32.1 pg (27.0-31.0); MEAN CORPUSCULAR HGB CONC 34.3 g/dL (33.0-37.0); MEAN PLATELET VOLUME 8.2 fL (7.2-11.7); MONO # 0.7 K/uL (0.0-0.8); MONO % 6.1 % (0.0-10.0); NEUT # 7.8 K/uL (1.8-7.0); NEUT % 68.1 % (50.0-75.0); RBC 2.73 Mil/uL (4.40-5.90); RED CELL DISTRIBUTION WIDTH 13.3 % (11.5-14.5); WHITE BLOOD COUNT 11.4 K/uL (4.8-10.8)
[2017-12-28 07:07] LABS: ALB/GLOB RATIO 1.1 (1.0-2.1); ALBUMIN 2.7 g/dL (3.5-5.0); CALCIUM 8.3 mg/dl (8.6-10.4)
--- NOTE | 2017-12-28 07:22 | CP.CCUPN ---
CCU Subjective - Physician Review Events Since Last Encounter (Free Text): 12/28/17 07:19 glucose decreased- insulin drip stopped Subjective (Free Text): 12/28/17 07:19 Patient was seen and examined this morning. Critical Care Time Spent (in minutes): 35 CCU Objective - Vital Signs / Intake & Output Vital Signs (Last 4 hours): Vital Signs Temp Pulse Resp BP Pulse Ox 12/28/17 06:00 73 9 L 100 12/28/17 05:58 136/61 12/28/17 05:00 80 10 L 100 12/28/17 04:57 125/62 12/28/17 04:00 97.5 F L 80 12 96 12/28/17 03:57 115/54 L Intake and Output (Last 8hrs): Intake & Output 12/27/17 12/28/17 12/28/17 22:59 06:59 14:59 Intake Total 942 1375 Output Total 700 Balance 942 675 Weight 127 lb Intake: IV 38 14 Intake, IV Amount 904 1361 Left Antecubital 54 11 Right Antecubital 850 1350 Output: Urine 700 Urine, Voided 700 Other: # Voids Urine, Voided 1 1 - Medications Active Medications: Active Medications Generic Name Dose Route Start Last Admin Trade Name Freq PRN Reason Stop Dose Admin Aripiprazole 5 mg 12/28/17 10:00 Abilify PO BID [facility] Aspirin 81 mg 12/28/17 10:00 Ecotrin PO DAILY [facility] Clopidogrel Bisulfate 75 mg 12/28/17 10:00 Plavix PO DAILY [facility] Clotrimazole 1 gm 12/27/17 18:30 12/27/17 22:37 Lotrimin 1% TOP Not Given BID [facility] Divalproex Sodium 500 mg 12/28/17 10:00 Depakote Er PO DAILY [facility] Heparin Sodium (Porcine) 5,000 units 12/27/17 22:00 12/28/17 06:16 Heparin SC 5,000 units Q8 ALIE Administration Ceftriaxone Sodium 1 gm/ 100 mls @ 100 mls/hr 12/28/17 10:00 Sodium Chloride IVPB DAILY [facility] Protocol Insulin Human Regular 100 unit 100 mls @ 0 mls/hr 12/27/17 14:09 12/28/17 06:00 / Sodium Chloride IV 0 units/hr .Q0M ALIE 0 mls/hr Titration Protocol Per Protocol Potassium Chloride 20 meq/ 1,010 mls @ 125 mls/hr 12/28/17 01:00 12/28/17 02:01 Dextrose/Sodium Chloride IV 125 mls/hr .Q8H5M ALIE Administration Insulin Aspart 0 unit 12/28/17 07:30 Novolog SC ACHS ALEI Protocol Insulin Detemir 17 unit 12/28/17 10:00 Levemir SC Q12 ALIE Metoprolol Succinate 25 mg 12/28/17 10:00 Toprol Xl PO DAILY ALIE Pregabalin 75 mg 12/28/17 10:00 Lyrica PO TID ALIE Risperidone 0.5 mg 12/27/17 22:00 12/27/17 21:15 Risperdal Tab PO 0.5 mg HS ALIE Administration Rosuvastatin Calcium 2.5 mg 12/27/17 22:00 12/27/17 21:16 Crestor PO 2.5 mg HS ALIE Administration - Patient Studies Lab Studies: Lab Studies 12/28/17 12/28/17 12/28/17 Range/Units 06:33 06:33 05:11 WBC 11.4 H (4.8-10.8) K/uL RBC 2.73 L (4.40-5.90) Mil/uL Hgb 8.8 L D (12.0-18.0) g/dL Hct 25.5 L (35.0-51.0) % MCV 93.4 D (80.0-94.0) fL MCH 32.1 H (27.0-31.0) pg MCHC 34.3 (33.0-37.0) g/dL RDW 13.3 (11.5-14.5) % Plt Count 263 D (130-400) K/uL MPV 8.2 (7.2-11.7) fL Neut % (Auto) 68.1 (50.0-75.0) % Lymph % (Auto) 24.3 (20.0-40.0) % [place] % (Auto) 6.1 (0.0-10.0) % Eos % (Auto) 0.9 (0.0-4.0) % Baso % (Auto) 0.6 (0.0-2.0) % Neut # (Auto) 7.8 H (1.8-7.0) K/uL Lymph # (Auto) 2.8 (1.0-4.3) K/uL [place] # (Auto) 0.7 (0.0-0.8) K/uL Eos # (Auto) 0.1 (0.0-0.7) K/uL Baso # (Auto) 0.1 (0.0-0.2) K/uL Puncture Site pCO2 (35-45) mm/Hg pO2 (80-100) mm/Hg HCO3 (21-28) mmol/L ABG pH (7.35-7.45) ABG Total CO2 (22-28) mmol/L ABG O2 Saturation (95-98) % ABG Base Excess (-2.0-3.0) mmol/L Artis Test ABG Potassium (3.6-5.2) mmol/L Sodium 142 (132-148) mmol/l Chloride 112 H (98-107) mmol/L Glucose (75-110) mg/dl Lactate (0.7-2.1) mmol/L Crit Value Called To Crit Value Called By Crit Value Read Back Blood Gas Notified Time Potassium 4.7 (3.6-5.2) mmol/L Carbon Dioxide 24 (22-30) mmol/L Anion Gap 11 (10-20) BUN 57 H (9-20) mg/dL Creatinine 1.6 H (0.8-1.5) mg/dL Est GFR ( Amer) 54 Est GFR (Non-Af Amer) 45 POC Glucose (mg/dL) 144 H (65-110) mg/dL Random Glucose 128 H (75-110) mg/dL Hemoglobin A1c (4.2-6.5) % Calcium 8.3 L (8.6-10.4) mg/dl Phosphorus 1.9 L (2.5-4.5) mg/dL Magnesium 2.2 (1.6-2.3) mg/dL Total Bilirubin 0.2 (0.2-1.3) mg/dL AST 19 (17-59) U/L ALT 39 (21-72) U/L Alkaline Phosphatase 144 H D (38-126) U/L Total Protein 5.1 L (6.3-8.3) g/dL Albumin 2.7 L D (3.5-5.0) g/dL Globulin 2.4 (2.2-3.9) gm/dL Albumin/Globulin Ratio 1.1 (1.0-2.1) Lipase (23-300) U/L Arterial Blood Potassium (3.6-5.2) mmol/L Urine Color (YELLOW) Urine Clarity (Clear) Urine pH (5.0-8.0) Ur Specific [place] (1.003-1.030) Urine Protein (NEGATIVE) mg/dL Urine Glucose (UA) (Normal) mg/dL Urine Ketones (NEGATIVE) mg/dL Urine Blood (NEGATIVE) Urine Nitrate (NEGATIVE) Urine Bilirubin (NEGATIVE) Urine Urobilinogen (0.2-1.0) mg/dL Ur Leukocyte Esterase (Negative) William/uL Urine WBC (Auto) (0-5) /hpf Urine RBC (Auto) (0-3) /hpf Ur Squamous Epith Cells (0-5) /hpf Urine Opiates Screen (NEGATIVE) Urine Methadone Screen (NEGATIVE) Ur Barbiturates Screen (NEGATIVE) Ur Phencyclidine Scrn (NEGATIVE) Ur Amphetamines Screen (NEGATIVE) U Benzodiazepines Scrn (NEGATIVE) U Oth Cocaine Metabols (NEGATIVE) U Cannabinoids Screen (NEGATIVE) Alcohol, Quantitative (0-10) mg/dl B-Hydroxybutyrate (0.02-0.27) mM 12/28/17 12/28/17 12/28/17 Range/Units 04:02 03:03 02:13 WBC (4.8-10.8) K/uL RBC (4.40-5.90) Mil/uL Hgb (12.0-18.0) g/dL Hct (35.0-51.0) % MCV (80.0-94.0) fL MCH (27.0-31.0) pg MCHC (33.0-37.0) g/dL RDW (11.5-14.5) % Plt Count (130-400) K/uL MPV (7.2-11.7) fL Neut % (Auto) (50.0-75.0) % Lymph % (Auto) (20.0-40.0) % [place] % (Auto) (0.0-10.0) % Eos % (Auto) (0.0-4.0) % Baso % (Auto) (0.0-2.0) % Neut # (Auto) (1.8-7.0) K/uL Lymph # (Auto) (1.0-4.3) K/uL [place] # (Auto) (0.0-0.8) K/uL Eos # (Auto) (0.0-0.7) K/uL Baso # (Auto) (0.0-0.2) K/uL Puncture Site pCO2 (35-45) mm/Hg pO2 (80-100) mm/Hg HCO3 (21-28) mmol/L ABG pH (7.35-7.45) ABG Total CO2 (22-28) mmol/L ABG O2 Saturation (95-98) % ABG Base Excess (-2.0-3.0) mmol/L Artis Test ABG Potassium (3.6-5.2) mmol/L Sodium (132-148) mmol/l Chloride (98-107) mmol/L Glucose (75-110) mg/dl Lactate (0.7-2.1) mmol/L Crit Value Called To Crit Value Called By Crit Value Read Back Blood Gas Notified Time Potassium (3.6-5.2) mmol/L Carbon Dioxide (22-30) mmol/L Anion Gap (10-20) BUN (9-20) mg/dL Creatinine (0.8-1.5) mg/dL Est GFR ( Amer) Est GFR (Non-Af Amer) POC Glucose (mg/dL) 70 99 64 L (65-110) mg/dL Random Glucose (75-110) mg/dL Hemoglobin A1c (4.2-6.5) % Calcium (8.6-10.4) mg/dl Phosphorus (2.5-4.5) mg/dL Magnesium (1.6-2.3) mg/dL Total Bilirubin (0.2-1.3) mg/dL AST (17-59) U/L ALT (21-72) U/L Alkaline Phosphatase (38-126) U/L Total Protein (6.3-8.3) g/dL Albumin (3.5-5.0) g/dL Globulin (2.2-3.9) gm/dL Albumin/Globulin Ratio (1.0-2.1) Lipase (23-300) U/L Arterial Blood Potassium (3.6-5.2) mmol/L Urine Color (YELLOW) Urine Clarity (Clear) Urine pH (5.0-8.0) Ur Specific [place] (1.003-1.030) Urine Protein (NEGATIVE) mg/dL Urine Glucose (UA) (Normal) mg/dL Urine Ketones (NEGATIVE) mg/dL Urine Blood (NEGATIVE) Urine Nitrate (NEGATIVE) Urine Bilirubin (NEGATIVE) Urine Urobilinogen (0.2-1.0) mg/dL Ur Leukocyte Esterase (Negative) William/uL Urine WBC (Auto) (0-5) /hpf Urine RBC (Auto) (0-3) /hpf Ur Squamous Epith Cells (0-5) /hpf Urine Opiates Screen (NEGATIVE) Urine Methadone Screen (NEGATIVE) Ur Barbiturates Screen (NEGATIVE) Ur Phencyclidine Scrn (NEGATIVE) Ur Amphetamines Screen (NEGATIVE) U Benzodiazepines Scrn (NEGATIVE) U Oth Cocaine Metabols (NEGATIVE) U Cannabinoids Screen (NEGATIVE) Alcohol, Quantitative (0-10) mg/dl B-Hydroxybutyrate (0.02-0.27) mM 12/28/17 12/28/17 12/27/17 Range/Units 01:09 00:07 23:02 WBC (4.8-10.8) K/uL RBC (4.40-5.90) Mil/uL Hgb (12.0-18.0) g/dL Hct (35.0-51.0) % MCV (80.0-94.0) fL MCH (27.0-31.0) pg MCHC (33.0-37.0) g/dL RDW (11.5-14.5) % Plt Count (130-400) K/uL MPV (7.2-11.7) fL Neut % (Auto) (50.0-75.0) % Lymph % (Auto) (20.0-40.0) % [place] % (Auto) (0.0-10.0) % Eos % (Auto) (0.0-4.0) % Baso % (Auto) (0.0-2.0) % Neut # (Auto) (1.8-7.0) K/uL Lymph # (Auto) (1.0-4.3) K/uL [place] # (Auto) (0.0-0.8) K/uL Eos # (Auto) (0.0-0.7) K/uL Baso # (Auto) (0.0-0.2) K/uL Puncture Site pCO2 (35-45) mm/Hg pO2 (80-100) mm/Hg HCO3 (21-28) mmol/L ABG pH (7.35-7.45) ABG Total CO2 (22-28) mmol/L ABG O2 Saturation (95-98) % ABG Base Excess (-2.0-3.0) mmol/L Artis Test ABG Potassium (3.6-5.2) mmol/L Sodium (132-148) mmol/l Chloride (98-107) mmol/L Glucose (75-110) mg/dl Lactate (0.7-2.1) mmol/L Crit Value Called To Crit Value Called By Crit Value Read Back Blood Gas Notified Time Potassium (3.6-5.2) mmol/L Carbon Dioxide (22-30) mmol/L Anion Gap (10-20) BUN (9-20) mg/dL Creatinine (0.8-1.5) mg/dL Est GFR ( Amer) Est GFR (Non-Af Amer) POC Glucose (mg/dL) 127 H 111 H 142 H (65-110) mg/dL Random Glucose (75-110) mg/dL Hemoglobin A1c (4.2-6.5) % Calcium (8.6-10.4) mg/dl Phosphorus (2.5-4.5) mg/dL Magnesium (1.6-2.3) mg/dL Total Bilirubin (0.2-1.3) mg/dL AST (17-59) U/L ALT (21-72) U/L Alkaline Phosphatase (38-126) U/L Total Protein (6.3-8.3) g/dL Albumin (3.5-5.0) g/dL Globulin (2.2-3.9) gm/dL Albumin/Globulin Ratio (1.0-2.1) Lipase (23-300) U/L Arterial Blood Potassium (3.6-5.2) mmol/L Urine Color (YELLOW) Urine Clarity (Clear) Urine pH (5.0-8.0) Ur Specific [place] (1.003-1.030) Urine Protein (NEGATIVE) mg/dL Urine Glucose (UA) (Normal) mg/dL Urine Ketones (NEGATIVE) mg/dL Urine Blood (NEGATIVE) Urine Nitrate (NEGATIVE) Urine Bilirubin (NEGATIVE) Urine Urobilinogen (0.2-1.0) mg/dL Ur Leukocyte Esterase (Negative) William/uL Urine WBC (Auto) (0-5) /hpf Urine RBC (Auto) (0-3) /hpf Ur Squamous Epith Cells (0-5) /hpf Urine Opiates Screen (NEGATIVE) Urine Methadone Screen (NEGATIVE) Ur Barbiturates Screen (NEGATIVE) Ur Phencyclidine Scrn (NEGATIVE) Ur Amphetamines Screen (NEGATIVE) U Benzodiazepines Scrn (NEGATIVE) U Oth Cocaine Metabols (NEGATIVE) U Cannabinoids Screen (NEGATIVE) Alcohol, Quantitative (0-10) mg/dl B-Hydroxybutyrate (0.02-0.27) mM 12/27/17 12/27/17 12/27/17 Range/Units 22:47 22:04 21:03 WBC (4.8-10.8) K/uL RBC (4.40-5.90) Mil/uL Hgb (12.0-18.0) g/dL Hct (35.0-51.0) % MCV (80.0-94.0) fL MCH (27.0-31.0) pg MCHC (33.0-37.0) g/dL RDW (11.5-14.5) % Plt Count (130-400) K/uL MPV (7.2-11.7) fL Neut % (Auto) (50.0-75.0) % Lymph % (Auto) (20.0-40.0) % [place] % (Auto) (0.0-10.0) % Eos % (Auto) (0.0-4.0) % Baso % (Auto) (0.0-2.0) % Neut # (Auto) (1.8-7.0) K/uL Lymph # (Auto) (1.0-4.3) K/uL [place] # (Auto) (0.0-0.8) K/uL Eos # (Auto) (0.0-0.7) K/uL Baso # (Auto) (0.0-0.2) K/uL Puncture Site pCO2 (35-45) mm/Hg pO2 (80-100) mm/Hg HCO3 (21-28) mmol/L ABG pH (7.35-7.45) ABG Total CO2 (22-28) mmol/L ABG O2 Saturation (95-98) % ABG Base Excess (-2.0-3.0) mmol/L Artis Test ABG Potassium (3.6-5.2) mmol/L Sodium 142 (132-148) mmol/l Chloride 118 H (98-107) mmol/L Glucose (75-110) mg/dl Lactate (0.7-2.1) mmol/L Crit Value Called To Crit Value Called By Crit Value Read Back Blood Gas Notified Time Potassium 4.0 (3.6-5.2) mmol/L Carbon Dioxide 14 L (22-30) mmol/L Anion Gap 15 (10-20) BUN 50 H (9-20) mg/dL Creatinine 1.4 (0.8-1.5) mg/dL Est GFR ( Amer) > 60 Est GFR (Non-Af Amer) 52 POC Glucose (mg/dL) 164 H 220 H (65-110) mg/dL Random Glucose 104 (75-110) mg/dL Hemoglobin A1c (4.2-6.5) % Calcium 6.6 L (8.6-10.4) mg/dl Phosphorus (2.5-4.5) mg/dL Magnesium (1.6-2.3) mg/dL Total Bilirubin (0.2-1.3) mg/dL AST (17-59) U/L ALT (21-72) U/L Alkaline Phosphatase (38-126) U/L Total Protein (6.3-8.3) g/dL Albumin (3.5-5.0) g/dL Globulin (2.2-3.9) gm/dL Albumin/Globulin Ratio (1.0-2.1) Lipase (23-300) U/L Arterial Blood Potassium (3.6-5.2) mmol/L Urine Color (YELLOW) Urine Clarity (Clear) Urine pH (5.0-8.0) Ur Specific [place] (1.003-1.030) Urine Protein (NEGATIVE) mg/dL Urine Glucose (UA) (Normal) mg/dL Urine Ketones (NEGATIVE) mg/dL Urine Blood (NEGATIVE) Urine Nitrate (NEGATIVE) Urine Bilirubin (NEGATIVE) Urine Urobilinogen (0.2-1.0) mg/dL Ur Leukocyte Esterase (Negative) William/uL Urine WBC (Auto) (0-5) /hpf Urine RBC (Auto) (0-3) /hpf Ur Squamous Epith Cells (0-5) /hpf Urine Opiates Screen (NEGATIVE) Urine Methadone Screen (NEGATIVE) Ur Barbiturates Screen (NEGATIVE) Ur Phencyclidine Scrn (NEGATIVE) Ur Amphetamines Screen (NEGATIVE) U Benzodiazepines Scrn (NEGATIVE) U Oth Cocaine Metabols (NEGATIVE) U Cannabinoids Screen (NEGATIVE) Alcohol, Quantitative (0-10) mg/dl B-Hydroxybutyrate (0.02-0.27) mM 12/27/17 12/27/17 12/27/17 Range/Units 20:08 18:53 18:18 WBC (4.8-10.8) K/uL RBC (4.40-5.90) Mil/uL Hgb (12.0-18.0) g/dL Hct (35.0-51.0) % MCV (80.0-94.0) fL MCH (27.0-31.0) pg MCHC (33.0-37.0) g/dL RDW (11.5-14.5) % Plt Count (130-400) K/uL MPV (7.2-11.7) fL Neut % (Auto) (50.0-75.0) % Lymph % (Auto) (20.0-40.0) % [place] % (Auto) (0.0-10.0) % Eos % (Auto) (0.0-4.0) % Baso % (Auto) (0.0-2.0) % Neut # (Auto) (1.8-7.0) K/uL Lymph # (Auto) (1.0-4.3) K/uL [place] # (Auto) (0.0-0.8) K/uL Eos # (Auto) (0.0-0.7) K/uL Baso # (Auto) (0.0-0.2) K/uL Puncture Site pCO2 (35-45) mm/Hg pO2 (80-100) mm/Hg HCO3 (21-28) mmol/L ABG pH (7.35-7.45) ABG Total CO2 (22-28) mmol/L ABG O2 Saturation (95-98) % ABG Base Excess (-2.0-3.0) mmol/L Artis Test ABG Potassium (3.6-5.2) mmol/L Sodium (132-148) mmol/l Chloride (98-107) mmol/L Glucose (75-110) mg/dl Lactate (0.7-2.1) mmol/L Crit Value Called To Crit Value Called By Crit Value Read Back Blood Gas Notified Time Potassium (3.6-5.2) mmol/L Carbon Dioxide (22-30) mmol/L Anion Gap (10-20) BUN (9-20) mg/dL Creatinine (0.8-1.5) mg/dL Est GFR ( Amer) Est GFR (Non-Af Amer) POC Glucose (mg/dL) 306 H 459 H* > 500 H* (65-110) mg/dL Random Glucose (75-110) mg/dL Hemoglobin A1c (4.2-6.5) % Calcium (8.6-10.4) mg/dl Phosphorus (2.5-4.5) mg/dL Magnesium (1.6-2.3) mg/dL Total Bilirubin (0.2-1.3) mg/dL AST (17-59) U/L ALT (21-72) U/L Alkaline Phosphatase (38-126) U/L Total Protein (6.3-8.3) g/dL Albumin (3.5-5.0) g/dL Globulin (2.2-3.9) gm/dL Albumin/Globulin Ratio (1.0-2.1) Lipase (23-300) U/L Arterial Blood Potassium (3.6-5.2) mmol/L Urine Color (YELLOW) Urine Clarity (Clear) Urine pH (5.0-8.0) Ur Specific [place] (1.003-1.030) Urine Protein (NEGATIVE) mg/dL Urine Glucose (UA) (Normal) mg/dL Urine Ketones (NEGATIVE) mg/dL Urine Blood (NEGATIVE) Urine Nitrate (NEGATIVE) Urine Bilirubin (NEGATIVE) Urine Urobilinogen (0.2-1.0) mg/dL Ur Leukocyte Esterase (Negative) William/uL Urine WBC (Auto) (0-5) /hpf Urine RBC (Auto) (0-3) /hpf Ur Squamous Epith Cells (0-5) /hpf Urine Opiates Screen (NEGATIVE) Urine Methadone Screen (NEGATIVE) Ur Barbiturates Screen (NEGATIVE) Ur Phencyclidine Scrn (NEGATIVE) Ur Amphetamines Screen (NEGATIVE) U Benzodiazepines Scrn (NEGATIVE) U Oth Cocaine Metabols (NEGATIVE) U Cannabinoids Screen (NEGATIVE) Alcohol, Quantitative (0-10) mg/dl B-Hydroxybutyrate (0.02-0.27) mM 12/27/17 12/27/17 12/27/17 Range/Units 18:08 16:36 15:27 WBC (4.8-10.8) K/uL RBC (4.40-5.90) Mil/uL Hgb (12.0-18.0) g/dL Hct (35.0-51.0) % MCV (80.0-94.0) fL MCH (27.0-31.0) pg MCHC (33.0-37.0) g/dL RDW (11.5-14.5) % Plt Count (130-400) K/uL MPV (7.2-11.7) fL Neut % (Auto) (50.0-75.0) % Lymph % (Auto) (20.0-40.0) % [place] % (Auto) (0.0-10.0) % Eos % (Auto) (0.0-4.0) % Baso % (Auto) (0.0-2.0) % Neut # (Auto) (1.8-7.0) K/uL Lymph # (Auto) (1.0-4.3) K/uL [place] # (Auto) (0.0-0.8) K/uL Eos # (Auto) (0.0-0.7) K/uL Baso # (Auto) (0.0-0.2) K/uL Puncture Site pCO2 (35-45) mm/Hg pO2 (80-100) mm/Hg HCO3 (21-28) mmol/L ABG pH (7.35-7.45) ABG Total CO2 (22-28) mmol/L ABG O2 Saturation (95-98) % ABG Base Excess (-2.0-3.0) mmol/L Artis Test ABG Potassium (3.6-5.2) mmol/L Sodium 141 (132-148) mmol/l Chloride 103 (98-107) mmol/L Glucose (75-110) mg/dl Lactate (0.7-2.1) mmol/L Crit Value Called To Crit Value Called By Crit Value Read Back Blood Gas Notified Time Potassium 4.0 (3.6-5.2) mmol/L Carbon Dioxide 8 L* (22-30) mmol/L Anion Gap 33 H (10-20) BUN 67 H (9-20) mg/dL Creatinine 2.5 H (0.8-1.5) mg/dL Est GFR ( Amer) 32 Est GFR (Non-Af Amer) 27 POC Glucose (mg/dL) > 500 H* > 500 H* (65-110) mg/dL Random Glucose 544 H* D (75-110) mg/dL Hemoglobin A1c (4.2-6.5) % Calcium 8.9 (8.6-10.4) mg/dl Phosphorus (2.5-4.5) mg/dL Magnesium (1.6-2.3) mg/dL Total Bilirubin (0.2-1.3) mg/dL AST (17-59) U/L ALT (21-72) U/L Alkaline Phosphatase (38-126) U/L Total Protein (6.3-8.3) g/dL Albumin (3.5-5.0) g/dL Globulin (2.2-3.9) gm/dL Albumin/Globulin Ratio (1.0-2.1) Lipase (23-300) U/L Arterial Blood Potassium (3.6-5.2) mmol/L Urine Color (YELLOW) Urine Clarity (Clear) Urine pH (5.0-8.0) Ur Specific [place] (1.003-1.030) Urine Protein (NEGATIVE) mg/dL Urine Glucose (UA) (Normal) mg/dL Urine Ketones (NEGATIVE) mg/dL Urine Blood (NEGATIVE) Urine Nitrate (NEGATIVE) Urine Bilirubin (NEGATIVE) Urine Urobilinogen (0.2-1.0) mg/dL Ur Leukocyte Esterase (Negative) William/uL Urine WBC (Auto) (0-5) /hpf Urine RBC (Auto) (0-3) /hpf Ur Squamous Epith Cells (0-5) /hpf Urine Opiates Screen (NEGATIVE) Urine Methadone Screen (NEGATIVE) Ur Barbiturates Screen (NEGATIVE) Ur Phencyclidine Scrn (NEGATIVE) Ur Amphetamines Screen (NEGATIVE) U Benzodiazepines Scrn (NEGATIVE) U Oth Cocaine Metabols (NEGATIVE) U Cannabinoids Screen (NEGATIVE) Alcohol, Quantitative (0-10) mg/dl B-Hydroxybutyrate > 6.00 H (0.02-0.27) mM 12/27/17 12/27/17 12/27/17 Range/Units 15:11 15:11 14:27 WBC (4.8-10.8) K/uL RBC (4.40-5.90) Mil/uL Hgb (12.0-18.0) g/dL Hct (35.0-51.0) % MCV (80.0-94.0) fL MCH (27.0-31.0) pg MCHC (33.0-37.0) g/dL RDW (11.5-14.5) % Plt Count (130-400) K/uL MPV (7.2-11.7) fL Neut % (Auto) (50.0-75.0) % Lymph % (Auto) (20.0-40.0) % [place] % (Auto) (0.0-10.0) % Eos % (Auto) (0.0-4.0) % Baso % (Auto) (0.0-2.0) % Neut # (Auto) (1.8-7.0) K/uL Lymph # (Auto) (1.0-4.3) K/uL [place] # (Auto) (0.0-0.8) K/uL Eos # (Auto) (0.0-0.7) K/uL Baso # (Auto) (0.0-0.2) K/uL Puncture Site pCO2 (35-45) mm/Hg pO2 (80-100) mm/Hg HCO3 (21-28) mmol/L ABG pH (7.35-7.45) ABG Total CO2 (22-28) mmol/L ABG O2 Saturation (95-98) % ABG Base Excess (-2.0-3.0) mmol/L Artis Test ABG Potassium (3.6-5.2) mmol/L Sodium (132-148) mmol/l Chloride (98-107) mmol/L Glucose (75-110) mg/dl Lactate (0.7-2.1) mmol/L Crit Value Called To Crit Value Called By Crit Value Read Back Blood Gas Notified Time Potassium (3.6-5.2) mmol/L Carbon Dioxide (22-30) mmol/L Anion Gap (10-20) BUN (9-20) mg/dL Creatinine (0.8-1.5) mg/dL Est GFR ( Amer) Est GFR (Non-Af Amer) POC Glucose (mg/dL) (65-110) mg/dL Random Glucose (75-110) mg/dL Hemoglobin A1c 12.3 H D (4.2-6.5) % Calcium (8.6-10.4) mg/dl Phosphorus (2.5-4.5) mg/dL Magnesium (1.6-2.3) mg/dL Total Bilirubin (0.2-1.3) mg/dL AST (17-59) U/L ALT (21-72) U/L Alkaline Phosphatase (38-126) U/L Total Protein (6.3-8.3) g/dL Albumin (3.5-5.0) g/dL Globulin (2.2-3.9) gm/dL Albumin/Globulin Ratio (1.0-2.1) Lipase (23-300) U/L Arterial Blood Potassium (3.6-5.2) mmol/L Urine Color Yellow (YELLOW) Urine Clarity Clear (Clear) Urine pH 5.0 (5.0-8.0) Ur Specific [place] 1.020 (1.003-1.030) Urine Protein Negative (NEGATIVE) mg/dL Urine Glucose (UA) 3+ H (Normal) mg/dL Urine Ketones 1+ H (NEGATIVE) mg/dL Urine Blood 1+ H (NEGATIVE) Urine Nitrate Negative (NEGATIVE) Urine Bilirubin Negative (NEGATIVE) Urine Urobilinogen Normal (0.2-1.0) mg/dL Ur Leukocyte Esterase Neg (Negative) William/uL Urine WBC (Auto) 1 (0-5) /hpf Urine RBC (Auto) 4 H (0-3) /hpf Ur Squamous Epith Cells < 1 (0-5) /hpf Urine Opiates Screen Negative (NEGATIVE) Urine Methadone Screen Negative (NEGATIVE) Ur Barbiturates Screen Negative (NEGATIVE) Ur Phencyclidine Scrn Negative (NEGATIVE) Ur Amphetamines Screen Negative (NEGATIVE) U Benzodiazepines Scrn Negative (NEGATIVE) U Oth Cocaine Metabols Negative (NEGATIVE) U Cannabinoids Screen Negative (NEGATIVE) Alcohol, Quantitative (0-10) mg/dl B-Hydroxybutyrate (0.02-0.27) mM 12/27/17 12/27/17 12/27/17 Range/Units 14:27 14:27 14:03 WBC 15.7 H D (4.8-10.8) K/uL RBC 3.33 L (4.40-5.90) Mil/uL Hgb 10.8 L (12.0-18.0) g/dL Hct 33.2 L (35.0-51.0) % MCV 99.7 H D (80.0-94.0) fL MCH 32.3 H (27.0-31.0) pg MCHC 32.4 L (33.0-37.0) g/dL RDW 13.6 (11.5-14.5) % Plt Count 376 D (130-400) K/uL MPV 8.6 (7.2-11.7) fL Neut % (Auto) 80.1 H (50.0-75.0) % Lymph % (Auto) 14.6 L (20.0-40.0) % [place] % (Auto) 5.0 (0.0-10.0) % Eos % (Auto) 0.1 (0.0-4.0) % Baso % (Auto) 0.2 (0.0-2.0) % Neut # (Auto) 12.5 H (1.8-7.0) K/uL Lymph # (Auto) 2.3 (1.0-4.3) K/uL [place] # (Auto) 0.8 (0.0-0.8) K/uL Eos # (Auto) 0.0 (0.0-0.7) K/uL Baso # (Auto) 0.0 (0.0-0.2) K/uL Puncture Site pCO2 (35-45) mm/Hg pO2 (80-100) mm/Hg HCO3 (21-28) mmol/L ABG pH (7.35-7.45) ABG Total CO2 (22-28) mmol/L ABG O2 Saturation (95-98) % ABG Base Excess (-2.0-3.0) mmol/L Artis Test ABG Potassium (3.6-5.2) mmol/L Sodium 131 L (132-148) mmol/l Chloride 89 L (98-107) mmol/L Glucose (75-110) mg/dl Lactate (0.7-2.1) mmol/L Crit Value Called To Crit Value Called By Crit Value Read Back Blood Gas Notified Time Potassium 6.9 H* D (3.6-5.2) mmol/L Carbon Dioxide 8 L* D (22-30) mmol/L Anion Gap 41 H (10-20) BUN 75 H (9-20) mg/dL Creatinine 2.8 H (0.8-1.5) mg/dL Est GFR ( Amer) 28 Est GFR (Non-Af Amer) 23 POC Glucose (mg/dL) > 500 H* (65-110) mg/dL Random Glucose 945 H* D (75-110) mg/dL Hemoglobin A1c (4.2-6.5) % Calcium 9.7 (8.6-10.4) mg/dl Phosphorus (2.5-4.5) mg/dL Magnesium (1.6-2.3) mg/dL Total Bilirubin 0.5 (0.2-1.3) mg/dL AST 32 (17-59) U/L ALT 55 (21-72) U/L Alkaline Phosphatase 230 H D (38-126) U/L Total Protein 6.6 (6.3-8.3) g/dL Albumin 4.1 (3.5-5.0) g/dL Globulin 2.5 (2.2-3.9) gm/dL Albumin/Globulin Ratio 1.6 (1.0-2.1) Lipase 151 (23-300) U/L Arterial Blood Potassium (3.6-5.2) mmol/L Urine Color (YELLOW) Urine Clarity (Clear) Urine pH (5.0-8.0) Ur Specific [place] (1.003-1.030) Urine Protein (NEGATIVE) mg/dL Urine Glucose (UA) (Normal) mg/dL Urine Ketones (NEGATIVE) mg/dL Urine Blood (NEGATIVE) Urine Nitrate (NEGATIVE) Urine Bilirubin (NEGATIVE) Urine Urobilinogen (0.2-1.0) mg/dL Ur Leukocyte Esterase (Negative) William/uL Urine WBC (Auto) (0-5) /hpf Urine RBC (Auto) (0-3) /hpf Ur Squamous Epith Cells (0-5) /hpf Urine Opiates Screen (NEGATIVE) Urine Methadone Screen (NEGATIVE) Ur Barbiturates Screen (NEGATIVE) Ur Phencyclidine Scrn (NEGATIVE) Ur Amphetamines Screen (NEGATIVE) U Benzodiazepines Scrn (NEGATIVE) U Oth Cocaine Metabols (NEGATIVE) U Cannabinoids Screen (NEGATIVE) Alcohol, Quantitative < 10 (0-10) mg/dl B-Hydroxybutyrate (0.02-0.27) mM 12/27/17 Range/Units 02:45 WBC (4.8-10.8) K/uL RBC (4.40-5.90) Mil/uL Hgb (12.0-18.0) g/dL Hct (35.0-51.0) % MCV (80.0-94.0) fL MCH (27.0-31.0) pg MCHC (33.0-37.0) g/dL RDW (11.5-14.5) % Plt Count (130-400) K/uL MPV (7.2-11.7) fL Neut % (Auto) (50.0-75.0) % Lymph % (Auto) (20.0-40.0) % [place] % (Auto) (0.0-10.0) % Eos % (Auto) (0.0-4.0) % Baso % (Auto) (0.0-2.0) % Neut # (Auto) (1.8-7.0) K/uL Lymph # (Auto) (1.0-4.3) K/uL [place] # (Auto) (0.0-0.8) K/uL Eos # (Auto) (0.0-0.7) K/uL Baso # (Auto) (0.0-0.2) K/uL Puncture Site Rr pCO2 16 L* (35-45) mm/Hg pO2 125 H (80-100) mm/Hg HCO3 9.5 L* (21-28) mmol/L ABG pH 7.19 L* (7.35-7.45) ABG Total CO2 6.6 L (22-28) mmol/L ABG O2 Saturation 99.2 H (95-98) % ABG Base Excess -19.8 L (-2.0-3.0) mmol/L Artis Test Pos ABG Potassium 4.9 (3.6-5.2) mmol/L Sodium 132.0 (132-148) mmol/l Chloride 95.0 L (98-107) mmol/L Glucose > 750 H* D (75-110) mg/dl Lactate 1.9 (0.7-2.1) mmol/L Crit Value Called To Dr [email or web address] Crit Value Called By Ginny meyer Crit Value Read Back Y Blood Gas Notified Time 1555 Potassium (3.6-5.2) mmol/L Carbon Dioxide (22-30) mmol/L Anion Gap (10-20) BUN (9-20) mg/dL Creatinine (0.8-1.5) mg/dL Est GFR ( Amer) Est GFR (Non-Af Amer) POC Glucose (mg/dL) (65-110) mg/dL Random Glucose (75-110) mg/dL Hemoglobin A1c (4.2-6.5) % Calcium (8.6-10.4) mg/dl Phosphorus (2.5-4.5) mg/dL Magnesium (1.6-2.3) mg/dL Total Bilirubin (0.2-1.3) mg/dL AST (17-59) U/L ALT (21-72) U/L Alkaline Phosphatase (38-126) U/L Total Protein (6.3-8.3) g/dL Albumin (3.5-5.0) g/dL Globulin (2.2-3.9) gm/dL Albumin/Globulin Ratio (1.0-2.1) Lipase (23-300) U/L Arterial Blood Potassium 4.9 (3.6-5.2) mmol/L Urine Color (YELLOW) Urine Clarity (Clear) Urine pH (5.0-8.0) Ur Specific [place] (1.003-1.030) Urine Protein (NEGATIVE) mg/dL Urine Glucose (UA) (Normal) mg/dL Urine Ketones (NEGATIVE) mg/dL Urine Blood (NEGATIVE) Urine Nitrate (NEGATIVE) Urine Bilirubin (NEGATIVE) Urine Urobilinogen (0.2-1.0) mg/dL Ur Leukocyte Esterase (Negative) William/uL Urine WBC (Auto) (0-5) /hpf Urine RBC (Auto) (0-3) /hpf Ur Squamous Epith Cells (0-5) /hpf Urine Opiates Screen (NEGATIVE) Urine Methadone Screen (NEGATIVE) Ur Barbiturates Screen (NEGATIVE) Ur Phencyclidine Scrn (NEGATIVE) Ur Amphetamines Screen (NEGATIVE) U Benzodiazepines Scrn (NEGATIVE) U Oth Cocaine Metabols (NEGATIVE) U Cannabinoids Screen (NEGATIVE) Alcohol, Quantitative (0-10) mg/dl B-Hydroxybutyrate (0.02-0.27) mM Laboratory Results - last 24 hr 12/27/17 12/27/17 12/27/17 02:45 14:03 14:27 WBC 15.7 H D RBC 3.33 L Hgb 10.8 L Hct 33.2 L MCV 99.7 H D MCH 32.3 H MCHC 32.4 L RDW 13.6 Plt Count 376 D MPV 8.6 Neut % (Auto) 80.1 H Lymph % (Auto) 14.6 L [place] % (Auto) 5.0 Eos % (Auto) 0.1 Baso % (Auto) 0.2 Neut # (Auto) 12.5 H Lymph # (Auto) 2.3 [place] # (Auto) 0.8 Eos # (Auto) 0.0 Baso # (Auto) 0.0 Puncture Site Rr pCO2 16 L* pO2 125 H HCO3 9.5 L* ABG pH 7.19 L* ABG Total CO2 6.6 L ABG O2 Saturation 99.2 H ABG Base Excess -19.8 L Artis Test Pos ABG Potassium 4.9 Sodium 132.0 Chloride 95.0 L Glucose > 750 H* D Lactate 1.9 Crit Value Called To Dr zhang Crit Value Called By Ginny meyer Crit Value Read Back Y Blood Gas Notified Time 1555 Potassium Carbon Dioxide Anion Gap BUN Creatinine Est GFR ( Amer) Est GFR (Non-Af Amer) POC Glucose (mg/dL) > 500 H* Random Glucose Hemoglobin A1c Calcium Phosphorus Magnesium Total Bilirubin AST ALT Alkaline Phosphatase Total Protein Albumin Globulin Albumin/Globulin Ratio Lipase Arterial Blood Potassium 4.9 Urine Color Urine Clarity Urine pH Ur Specific [place] Urine Protein Urine Glucose (UA) Urine Ketones Urine Blood Urine Nitrate Urine Bilirubin Urine Urobilinogen Ur Leukocyte Esterase Urine WBC (Auto) Urine RBC (Auto) Ur Squamous Epith Cells Urine Opiates Screen Urine Methadone Screen Ur Barbiturates Screen Ur Phencyclidine Scrn Ur Amphetamines Screen U Benzodiazepines Scrn U Oth Cocaine Metabols U Cannabinoids Screen Alcohol, Quantitative B-Hydroxybutyrate 12/27/17 12/27/17 12/27/17 14:27 14:27 15:11 WBC RBC Hgb Hct MCV MCH MCHC RDW Plt Count MPV Neut % (Auto) Lymph % (Auto) [place] % (Auto) Eos % (Auto) Baso % (Auto) Neut # (Auto) Lymph # (Auto) [place] # (Auto) Eos # (Auto) Baso # (Auto) Puncture Site pCO2 pO2 HCO3 ABG pH ABG Total CO2 ABG O2 Saturation ABG Base Excess Artis Test ABG Potassium Sodium 131 L Chloride 89 L Glucose Lactate Crit Value Called To Crit Value Called By Crit Value Read Back Blood Gas Notified Time Potassium 6.9 H* D Carbon Dioxide 8 L* D Anion Gap 41 H BUN 75 H Creatinine 2.8 H Est GFR ( Amer) 28 Est GFR (Non-Af Amer) 23 POC Glucose (mg/dL) Random Glucose 945 H* D Hemoglobin A1c 12.3 H D Calcium 9.7 Phosphorus Magnesium Total Bilirubin 0.5 AST 32 ALT 55 Alkaline Phosphatase 230 H D Total Protein 6.6 Albumin 4.1 Globulin 2.5 Albumin/Globulin Ratio 1.6 Lipase 151 Arterial Blood Potassium Urine Color Yellow Urine Clarity Clear Urine pH 5.0 Ur Specific [place] 1.020 Urine Protein Negative Urine Glucose (UA) 3+ H Urine Ketones 1+ H Urine Blood 1+ H Urine Nitrate Negative Urine Bilirubin Negative Urine Urobilinogen Normal Ur Leukocyte Esterase Neg Urine WBC (Auto) 1 Urine RBC (Auto) 4 H Ur Squamous Epith Cells < 1 Urine Opiates Screen Urine Methadone Screen Ur Barbiturates Screen Ur Phencyclidine Scrn Ur Amphetamines Screen U Benzodiazepines Scrn U Oth Cocaine Metabols U Cannabinoids Screen Alcohol, Quantitative < 10 B-Hydroxybutyrate 12/27/17 12/27/17 12/27/17 15:11 15:27 16:36 WBC RBC Hgb Hct MCV MCH MCHC RDW Plt Count MPV Neut % (Auto) Lymph % (Auto) [place] % (Auto) Eos % (Auto) Baso % (Auto) Neut # (Auto) Lymph # (Auto) [place] # (Auto) Eos # (Auto) Baso # (Auto) Puncture Site pCO2 pO2 HCO3 ABG pH ABG Total CO2 ABG O2 Saturation ABG Base Excess Artis Test ABG Potassium Sodium Chloride Glucose Lactate Crit Value Called To Crit Value Called By Crit Value Read Back Blood Gas Notified Time Potassium Carbon Dioxide Anion Gap BUN Creatinine Est GFR ( Amer) Est GFR (Non-Af Amer) POC Glucose (mg/dL) > 500 H* > 500 H* Random Glucose Hemoglobin A1c Calcium Phosphorus Magnesium Total Bilirubin AST ALT Alkaline Phosphatase Total Protein Albumin Globulin Albumin/Globulin Ratio Lipase Arterial Blood Potassium Urine Color Urine Clarity Urine pH Ur Specific [place] Urine Protein Urine Glucose (UA) Urine Ketones Urine Blood Urine Nitrate Urine Bilirubin Urine Urobilinogen Ur Leukocyte Esterase Urine WBC (Auto) Urine RBC (Auto) Ur Squamous Epith Cells Urine Opiates Screen Negative Urine Methadone Screen Negative Ur Barbiturates Screen Negative Ur Phencyclidine Scrn Negative Ur Amphetamines Screen Negative U Benzodiazepines Scrn Negative U Oth Cocaine Metabols Negative U Cannabinoids Screen Negative Alcohol, Quantitative B-Hydroxybutyrate 12/27/17 12/27/17 12/27/17 18:08 18:18 18:53 WBC RBC Hgb Hct MCV MCH MCHC RDW Plt Count MPV Neut % (Auto) Lymph % (Auto) [place] % (Auto) Eos % (Auto) Baso % (Auto) Neut # (Auto) Lymph # (Auto) [place] # (Auto) Eos # (Auto) Baso # (Auto) Puncture Site pCO2 pO2 HCO3 ABG pH ABG Total CO2 ABG O2 Saturation ABG Base Excess Artis Test ABG Potassium Sodium 141 Chloride 103 Glucose Lactate Crit Value Called To Crit Value Called By Crit Value Read Back Blood Gas Notified Time Potassium 4.0 Carbon Dioxide 8 L* Anion Gap 33 H BUN 67 H Creatinine 2.5 H Est GFR ( Amer) 32 Est GFR (Non-Af Amer) 27 POC Glucose (mg/dL) > 500 H* 459 H* Random Glucose 544 H* D Hemoglobin A1c Calcium 8.9 Phosphorus Magnesium Total Bilirubin AST ALT Alkaline Phosphatase Total Protein Albumin Globulin Albumin/Globulin Ratio Lipase Arterial Blood Potassium Urine Color Urine Clarity Urine pH Ur Specific [place] Urine Protein Urine Glucose (UA) Urine Ketones Urine Blood Urine Nitrate Urine Bilirubin Urine Urobilinogen Ur Leukocyte Esterase Urine WBC (Auto) Urine RBC (Auto) Ur Squamous Epith Cells Urine Opiates Screen Urine Methadone Screen Ur Barbiturates Screen Ur Phencyclidine Scrn Ur Amphetamines Screen U Benzodiazepines Scrn U Oth Cocaine Metabols U Cannabinoids Screen Alcohol, Quantitative B-Hydroxybutyrate > 6.00 H 12/27/17 12/27/17 12/27/17 20:08 21:03 22:04 WBC RBC Hgb Hct MCV MCH MCHC RDW Plt Count MPV Neut % (Auto) Lymph % (Auto) [place] % (Auto) Eos % (Auto) Baso % (Auto) Neut # (Auto) Lymph # (Auto) [place] # (Auto) Eos # (Auto) Baso # (Auto) Puncture Site pCO2 pO2 HCO3 ABG pH ABG Total CO2 ABG O2 Saturation ABG Base Excess Artis Test ABG Potassium Sodium Chloride Glucose Lactate Crit Value Called To Crit Value Called By Crit Value Read Back Blood Gas Notified Time Potassium Carbon Dioxide Anion Gap BUN Creatinine Est GFR ( Amer) Est GFR (Non-Af Amer) POC Glucose (mg/dL) 306 H 220 H 164 H Random Glucose Hemoglobin A1c Calcium Phosphorus Magnesium Total Bilirubin AST ALT Alkaline Phosphatase Total Protein Albumin Globulin Albumin/Globulin Ratio Lipase Arterial Blood Potassium Urine Color Urine Clarity Urine pH Ur Specific [place] Urine Protein Urine Glucose (UA) Urine Ketones Urine Blood Urine Nitrate Urine Bilirubin Urine Urobilinogen Ur Leukocyte Esterase Urine WBC (Auto) Urine RBC (Auto) Ur Squamous Epith Cells Urine Opiates Screen Urine Methadone Screen Ur Barbiturates Screen Ur Phencyclidine Scrn Ur Amphetamines Screen U Benzodiazepines Scrn U Oth Cocaine Metabols U Cannabinoids Screen Alcohol, Quantitative B-Hydroxybutyrate 12/27/17 12/27/17 12/28/17 22:47 23:02 00:07 WBC RBC Hgb Hct MCV MCH MCHC RDW Plt Count MPV Neut % (Auto) Lymph % (Auto) [place] % (Auto) Eos % (Auto) Baso % (Auto) Neut # (Auto) Lymph # (Auto) [place] # (Auto) Eos # (Auto) Baso # (Auto) Puncture Site pCO2 pO2 HCO3 ABG pH ABG Total CO2 ABG O2 Saturation ABG Base Excess Artis Test ABG Potassium Sodium 142 Chloride 118 H Glucose Lactate Crit Value Called To Crit Value Called By Crit Value Read Back Blood Gas Notified Time Potassium 4.0 Carbon Dioxide 14 L Anion Gap 15 BUN 50 H Creatinine 1.4 Est GFR ( Amer) > 60 Est GFR (Non-Af Amer) 52 POC Glucose (mg/dL) 142 H 111 H Random Glucose 104 Hemoglobin A1c Calcium 6.6 L Phosphorus Magnesium Total Bilirubin AST ALT Alkaline Phosphatase Total Protein Albumin Globulin Albumin/Globulin Ratio Lipase Arterial Blood Potassium Urine Color Urine Clarity Urine pH Ur Specific [place] Urine Protein Urine Glucose (UA) Urine Ketones Urine Blood Urine Nitrate Urine Bilirubin Urine Urobilinogen Ur Leukocyte Esterase Urine WBC (Auto) Urine RBC (Auto) Ur Squamous Epith Cells Urine Opiates Screen Urine Methadone Screen Ur Barbiturates Screen Ur Phencyclidine Scrn Ur Amphetamines Screen U Benzodiazepines Scrn U Oth Cocaine Metabols U Cannabinoids Screen Alcohol, Quantitative B-Hydroxybutyrate 12/28/17 12/28/17 12/28/17 01:09 02:13 03:03 WBC RBC Hgb Hct MCV MCH MCHC RDW Plt Count MPV Neut % (Auto) Lymph % (Auto) [place] % (Auto) Eos % (Auto) Baso % (Auto) Neut # (Auto) Lymph # (Auto) [place] # (Auto) Eos # (Auto) Baso # (Auto) Puncture Site pCO2 pO2 HCO3 ABG pH ABG Total CO2 ABG O2 Saturation ABG Base Excess Artis Test ABG Potassium Sodium Chloride Glucose Lactate Crit Value Called To Crit Value Called By Crit Value Read Back Blood Gas Notified Time Potassium Carbon Dioxide Anion Gap BUN Creatinine Est GFR ( Amer) Est GFR (Non-Af Amer) POC Glucose (mg/dL) 127 H 64 L 99 Random Glucose Hemoglobin A1c Calcium Phosphorus Magnesium Total Bilirubin AST ALT Alkaline Phosphatase Total Protein Albumin Globulin Albumin/Globulin Ratio Lipase Arterial Blood Potassium Urine Color Urine Clarity Urine pH Ur Specific [place] Urine Protein Urine Glucose (UA) Urine Ketones Urine Blood Urine Nitrate Urine Bilirubin Urine Urobilinogen Ur Leukocyte Esterase Urine WBC (Auto) Urine RBC (Auto) Ur Squamous Epith Cells Urine Opiates Screen Urine Methadone Screen Ur Barbiturates Screen Ur Phencyclidine Scrn Ur Amphetamines Screen U Benzodiazepines Scrn U Oth Cocaine Metabols U Cannabinoids Screen Alcohol, Quantitative B-Hydroxybutyrate 12/28/17 12/28/17 12/28/17 04:02 05:11 06:33 WBC RBC Hgb Hct MCV MCH MCHC RDW Plt Count MPV Neut % (Auto) Lymph % (Auto) [place] % (Auto) Eos % (Auto) Baso % (Auto) Neut # (Auto) Lymph # (Auto) [place] # (Auto) Eos # (Auto) Baso # (Auto) Puncture Site pCO2 pO2 HCO3 ABG pH ABG Total CO2 ABG O2 Saturation ABG Base Excess Artis Test ABG Potassium Sodium 142 Chloride 112 H Glucose Lactate Crit Value Called To Crit Value Called By Crit Value Read Back Blood Gas Notified Time Potassium 4.7 Carbon Dioxide 24 Anion Gap 11 BUN 57 H Creatinine 1.6 H Est GFR ( Amer) 54 Est GFR (Non-Af Amer) 45 POC Glucose (mg/dL) 70 144 H Random Glucose 128 H Hemoglobin A1c Calcium 8.3 L Phosphorus 1.9 L Magnesium 2.2 Total Bilirubin 0.2 AST 19 ALT 39 Alkaline Phosphatase 144 H D Total Protein 5.1 L Albumin 2.7 L D Globulin 2.4 Albumin/Globulin Ratio 1.1 Lipase Arterial Blood Potassium Urine Color Urine Clarity Urine pH Ur Specific [place] Urine Protein Urine Glucose (UA) Urine Ketones Urine Blood Urine Nitrate Urine Bilirubin Urine Urobilinogen Ur Leukocyte Esterase Urine WBC (Auto) Urine RBC (Auto) Ur Squamous Epith Cells Urine Opiates Screen Urine Methadone Screen Ur Barbiturates Screen Ur Phencyclidine Scrn Ur Amphetamines Screen U Benzodiazepines Scrn U Oth Cocaine Metabols U Cannabinoids Screen Alcohol, Quantitative B-Hydroxybutyrate 12/28/17 06:33 WBC 11.4 H RBC 2.73 L Hgb 8.8 L D Hct 25.5 L MCV 93.4 D MCH 32.1 H MCHC 34.3 RDW 13.3 Plt Count 263 D MPV 8.2 Neut % (Auto) 68.1 Lymph % (Auto) 24.3 [place] % (Auto) 6.1 Eos % (Auto) 0.9 Baso % (Auto) 0.6 Neut # (Auto) 7.8 H Lymph # (Auto) 2.8 [place] # (Auto) 0.7 Eos # (Auto) 0.1 Baso # (Auto) 0.1 Puncture Site pCO2 pO2 HCO3 ABG pH ABG Total CO2 ABG O2 Saturation ABG Base Excess Artis Test ABG Potassium Sodium Chloride Glucose Lactate Crit Value Called To Crit Value Called By Crit Value Read Back Blood Gas Notified Time Potassium Carbon Dioxide Anion Gap BUN Creatinine Est GFR ( Amer) Est GFR (Non-Af Amer) POC Glucose (mg/dL) Random Glucose Hemoglobin A1c Calcium Phosphorus Magnesium Total Bilirubin AST ALT Alkaline Phosphatase Total Protein Albumin Globulin Albumin/Globulin Ratio Lipase Arterial Blood Potassium Urine Color Urine Clarity Urine pH Ur Specific [place] Urine Protein Urine Glucose (UA) Urine Ketones Urine Blood Urine Nitrate Urine Bilirubin Urine Urobilinogen Ur Leukocyte Esterase Urine WBC (Auto) Urine RBC (Auto) Ur Squamous Epith Cells Urine Opiates Screen Urine Methadone Screen Ur Barbiturates Screen Ur Phencyclidine Scrn Ur Amphetamines Screen U Benzodiazepines Scrn U Oth Cocaine Metabols U Cannabinoids Screen Alcohol, Quantitative B-Hydroxybutyrate EKG/Cardiology Studies: Cardiology / EKG Studies 12/27/17 13:57 EKG [ELECTROCARDIOGRAM] Stat Comment: Mode Of Transportation: BED Reason For Exam: cp Fingerstick Blood Sugar Results: 90 Critical Care Progress Note - Nutrition Nutrition: Nutrition Category Date Time Status Consistent Carbohydrate [DIET] Diets 12/28/17 Breakfast Active Assessment/Plan - Assessment and Plan (Free Text) Assessment: Patient is a 57 yo male who presented with DKA. He has a h/o psych disorder (bipolar vs schizophrenia) and dementia. He has been admitted several times in the past with the same presentation (AMS, hyperglycemia) and DKA. He is chronically noncompliant. His administers his insulin and has not wanted long-term placement for the patient. Plan: Neuro: - Baseline dementia- oriented to person - Monitor mental status CV: - Monitor vitals - Metoprolol succinate 25 mg PO daily - Lisinopril 10 mg PO daily- hold due to hyperkalemia - Plavix 75 mg PO daily - ASA 81 mg PO daily - Pravastatin 20 mg PO QHS Pulm: - Maintain spO2>92%- NC PRN GI: - NPO : - BUN 75, Cr 2.8 - WBC 15.7- may - Renal/bladder u/s pending - UA: Blood 1+ - Urine Cx pending - IVF - Rocephin 1 g IV daily Endo: DKA - ABG pH 7.19, pO2 125, PCO2 16 - BG on admission 945 - K 6.9 - CO2 8 - AG 41 - Beta-hydroxybutyrate pending - Hypoglycemia protocol - Accuchecks Q1H - BMP Q4H - Discontinue insulin drip - NS 4L in ED - NS @ 250 mL/hr Heme: - Hgb at baseline - Monitor H&H Psych: - Depakote level pending - Depakote 500 mg PO daily - Lyrica 75 mg PO TID - Abilify 5 mg PO BID - Risperdal 0.5 mg PO qhs Ppx: VTE: SCDs, heparin 5000 units Q8H GI: not indicated IVF: NS @ 250 mL/hr Code status: full code Case discussed with attending, Dr. Cleaning. PGY-1 Jerilyn Palacio D.O.
[2017-12-28] MEDS: (Novolog) Insulin Aspart, Recombinant 100 u/ml 10 ml vial SC SCH ×5 (08:12→21:36)
[2017-12-28] MEDS: Divalproex 500 mg ER Tab PO SCH (09:40)
[2017-12-28] MEDS: Clotrimazole 1% Cream(30 gm) TOP SCH ×2 (09:42→17:33)
[2017-12-28] MEDS: Metoprolol Succinate 25 mg XL Tab PO SCH (09:43)
--- NOTE | 2017-12-28 09:46 | US ---
Date of service: 12/27/2017 PROCEDURE: Ultrasound of the Kidneys HISTORY: microscopic hematuria COMPARISON: None available. TECHNIQUE: Sonogram of the kidneys. FINDINGS: RIGHT KIDNEY: Measures: 11.8 x 9.2 x 10.4 cm. Diffuse increased echogenicity. No stone or gross hydronephrosis noted. LEFT KIDNEY: Measures: 9.6 X 6.6 X 4.7 cm. DIFFUSE INCREASED ECHOGENICITY NO stone or gross hydronephrosis noted. OTHER FINDINGS: Bladder prevoid urine volume 590 mL. Postvoid urine volume 61 mL. Bilateral ureteral jets noted. No gross bladder wall thickening or intraluminal bladder masses. Prostate volume is 31.37 IMPRESSION: No hydronephrosis. Bilateral echogenic kidneys compatible with medical renal disease. No echogenic shadowing renal stones noted. Postvoid urine volume as above. No bladder calculi noted. No intrinsic bladder pathology appreciated. Prostate volume as above. Concordant results (preliminary interpretation) provided by [facility].
--- NOTE | 2017-12-28 09:58 | CP.PCM.PN ---
Subjective - Date & Time of Evaluation Date of Evaluation: 12/28/17 Time of Evaluation: 09:40 - Subjective Subjective: Medical Attending Note: Patient seen and examined at bedside. Patient is without his dentures they are at home. Patient reports he is feeling better compared to yesterday. No family present at bedside. Objective - Vital Signs/Intake and Output Vital Signs (last 24 hours): Temp Pulse Resp BP Pulse Ox 97.5 F L 72 9 L 129/60 100 12/28/17 08:00 12/28/17 08:00 12/28/17 08:00 12/28/17 07:57 12/28/17 08:00 Intake and Output: 12/28/17 12/28/17 06:59 18:59 Intake Total 2047 125 Output Total 700 Balance 1347 125 - Medications Medications: Current Medications Aripiprazole (Abilify) 5 mg PO BID [facility] Last Admin: 12/28/17 09:41 Dose: 5 mg Aspirin (Ecotrin) 81 mg PO DAILY [facility] Last Admin: 12/28/17 09:41 Dose: 81 mg Clopidogrel Bisulfate (Plavix) 75 mg PO DAILY [facility] Last Admin: 12/28/17 09:41 Dose: 75 mg Clotrimazole (Lotrimin 1%) 1 gm TOP BID [facility] Last Admin: 12/28/17 09:42 Dose: Not Given Divalproex Sodium (Depakote Er) 500 mg PO DAILY [facility] Last Admin: 12/28/17 09:40 Dose: 500 mg Heparin Sodium (Porcine) (Heparin) 5,000 units SC Q8 [facility] Last Admin: 12/28/17 06:16 Dose: 5,000 units Ceftriaxone Sodium 1 gm/ (Sodium Chloride) 100 mls @ 100 mls/hr IVPB DAILY [facility]; Protocol Last Admin: 12/28/17 09:40 Dose: 100 mls/hr Insulin Human Regular 100 unit (/ Sodium Chloride) 100 mls @ 0 mls/hr IV .Q0M [facility]; Protocol Last Titration: 12/28/17 06:00 Dose: 0 units/hr, 0 mls/hr Potassium Chloride 20 meq/ (Dextrose/Sodium Chloride) 1,010 mls @ 125 mls/hr IV .Q8H5M [facility] Last Admin: 12/28/17 09:43 Dose: 125 mls/hr Insulin Aspart (Novolog) 0 unit SC ACHS [facility]; Protocol Last Admin: 12/28/17 08:12 Dose: Not Given Insulin Detemir (Levemir) 17 unit SC Q12 [facility] Last Admin: 12/28/17 09:40 Dose: 17 u Metoprolol Succinate (Toprol Xl) 25 mg PO DAILY [facility] Last Admin: 12/28/17 09:43 Dose: 25 mg Pregabalin (Lyrica) 75 mg PO TID [facility] Last Admin: 12/28/17 09:40 Dose: 75 mg Risperidone (Risperdal Tab) 0.5 mg PO [facility] Last Admin: 12/27/17 21:15 Dose: 0.5 mg Rosuvastatin Calcium (Crestor) 2.5 mg PO [facility] Last Admin: 12/27/17 21:16 Dose: 2.5 mg Saccharomyces Boulardii (Florastor) 250 mg PO BID [facility] - Labs Labs: 12/28/17 06:33 12/28/17 06:33 - Constitutional Appears: Non-toxic, No Acute Distress - Head Exam Head Exam: NORMAL INSPECTION - Eye Exam Eye Exam: EOMI - ENT Exam ENT Exam: Mucous Membranes Moist - Respiratory Exam Respiratory Exam: Clear to Ausculation Bilateral, NORMAL BREATHING PATTERN. absent: Rales, Rhonchi, Wheezes - Cardiovascular Exam Cardiovascular Exam: REGULAR RHYTHM, +S1, +S2 - GI/Abdominal Exam GI & Abdominal Exam: Soft, Normal Bowel Sounds. absent: Distended, Firm, Guarding, Rigid, Tenderness, Rebound - Extremities Exam Extremities Exam: absent: Pedal Edema, Tenderness - Neurological Exam Neurological Exam: Alert, Awake, Oriented x3 - Psychiatric Exam Psychiatric exam: Normal Affect, Normal Mood - Skin Skin Exam: Dry, Normal Color, Warm Assessment and Plan (1) DKA (diabetic ketoacidoses) Status: Acute (2) Dehydration Status: Acute (3) Diabetes mellitus Status: Acute (4) History of coronary artery disease Status: Acute (5) History of hypertension Status: Acute (6) History of schizophrenia Status: Acute (7) Prophylactic measure Status: Acute (8) Schizophrenia Status: Acute (9) UTI (lower urinary tract infection) Status: Acute (10) CAD (coronary artery disease) Status: Chronic (11) Diabetes mellitus type 2, insulin dependent Status: Chronic (12) HTN (hypertension) Status: Chronic Attending/Attestation - Attestation I have personally seen and examined this patient.: Yes I have fully participated in the care of the patient.: Yes I have reviewed all pertinent clinical information, including history, physical exam and plan: Yes Notes (Text): Assessment/Plan 1. History of Uncontrolled Diabetes Mellitus, non-compliant Diabetic Ketoacidosis * Admitted to ICU; awaiting ICU rounds * Endocrinology consult * off Insulin drip * Accuchecks QAC and HS * Carbohydrate consistent diet * Hold Lisinopril to prevent hyperkalemia * Hypoglycemic protocol * Novolog insulin sliding scale achs * Levemir 17 units [id number] * d/c IV fluids 2. Schizophrenia and Bipolar disorder Aggressive Behavior History of Dementia * Abilify 5mg PO BID * Depakote 500 mg PO daily 3. Hyperkalemia * Likely secondary to DKA * D/c Lisinopril se: hyperkalemia 4. Normacytic Anemia (Stable) * Chronic in nature, Hgb at baseline * Hgb drop but I suspect its dilutional * No active bleeding at this time * Will continue to monitor 5. History of Coronary Artery Disease * Continue ASA and plavix daily 6. History of Hypertension * Hold Toprol XL 25mg PO daily 7. History of Hyperlipidemia * Crestor 2.5mg daily * Lipid panel from 02/2017 * Triglycerides - 225 * Cholesterol - 209 * LDL - 101 * HDL - 56 8. Acute Renal Insufficiency * improved * Bladder US: no hydronephrosis. b/l echogenic kidneys compatible with medical renal disease. no echogenic shadowing renal stones noted. no bladder calculi, no intrinsic bladder pathology. 9. Abnormal UA * awaiting urine culture * start Rocephin 1 gram IV q daily for empiric antibiotic coverage * pending blood cultures * Chest xray: negative 10. Prophylactic measures * Heparin 5000 units subq8H * PT/OT eval * Palliative consult-->goals of care; patient is in and out of the hospital for DKA, noncompliance on diabetic meds
[2017-12-28] MEDS ORDERED: Insulin Detemir 100 units/ml Vial (Levemir) SC SCH (10:00)
[2017-12-28] MEDS ORDERED: Metoprolol Succinate 25 mg XL Tab PO SCH (10:00)
[2017-12-28] MEDS: Saccharomyces Boulardi 250 mg Cap PO SCH ×2 (10:46→17:32)
--- NOTE | 2017-12-28 11:16 | CP.PCM.CON ---
History of Present Illness - History of Present Illness History of Present Illness: palliative consult requestd by Doctor Pappas for goals of care discussion Patient is a 57 yo male with multiple admissions to this hospital, admitted with AMS and lethargy. Patient found to be in DKA and blood sugar > 500 and Hb A1C 12.3, upon arriving to ED. Patient started on Insulin drip. Today his BS is 90, Insulinn drip stopped and patient is placed on Sliding scale. WBC 15.7 on admission , down to 11.4 today. Rocephin IV on. Patient had many similar episodes of DKA due to noncompliance with DM mds at home. per record, LTC was suggested in the past and refused by patient's . Palliative consult called for further discussion of goals of care. PMH: dementia, Bipolar disorder, anxiety, CAD, CHF, DM, nay Fx, Schizoprenia, edentulous, wears dentures, unemployed Soc. Hx: , lives at home Fam. Hx: denied by patient Review of Systems - Constitutional Constitutional: absent: As Per HPI, Anorexia, Chills, Daytime Sleepiness, Excessive Sweating, Fatigue, Fever, Frequent Falls, Headache, Increased Appetite, Lethargy, Malaise, Night Sweats, Snoring, Sleep Apnea, Weight Gain, Weight Loss, Weakness, Other - EENT Eyes: absent: As Per HPI, Blind Spots, Blurred Vision, Change in Vision, Decreased Night Vision, Diplopia, Discharge, Dry Eye, Exophthalmos, Floaters, Irritation, Itchy Eyes, Loss of Peripheral Vision, Pain, Photophobia, Requires Corrective Lenses, Sees Flashes, Spots in Vision, Tunnel Vision, Other Visual Disturbances, Loss of Vision, Other Nose/Mouth/Throat: absent: As Per HPI, Epistaxis, Nasal Congestion, Nasal Discharge, Nasal Obstruction, Nasal Trauma, Nose Pain, Post Nasal Drip, Sinus Pain, Sinus Pressure, Bleeding Gums, Change in Voice, Dental Pain, Dry Mouth, Dysphagia, Halitosis, Hoarsness, Lip Swelling, Mouth Lesions, Mouth Pain, Odynophagia, Sore Throat, Throat Swelling, Tongue Swelling, Facial Pain, Neck Pain, Neck Mass, Other - Cardiovascular Cardiovascular: absent: As Per HPI, Acrocyanosis, Chest Pain, Chest Pain at Rest, Chest Pain with Activity, Claudication, Diaphoresis, Dyspnea, Dyspnea on Exertion, Edema, Irregular Heart Rhythm, Pain Radiating to Arm/Neck/Jaw, Leg Edema, Leg Ulcers, Lightheadedness, Orthopnea, Palpitations, Paroxysmal Nocturnal Dyspnea, Pedal Edema, Radiating Pain, Rapid Heart Rate, Slow Heart Rate, Syncope, Other - Respiratory Respiratory: absent: As Per HPI, Cough, Dyspnea, Hemoptysis, Dyspnea on Exertion, Wheezing, Snoring, Stridor, Pain on Inspiration, Chest Congestion, Excessive Mucous Production, Change in Mucous Color, Pain with Coughing, Other - Gastrointestinal Gastrointestinal: absent: As Per HPI, Abdominal Pain, Belching, Bloating, Change in Bowel Habits, Change in Stool Character, Coffee Ground Emesis, Constipation, Cramping, Diarrhea, Dyspepsia, Dysphagia, Early Satiety, Excessive Flatus, Fecal Incontinence, Heartburn, Hematemesis, Hematochezia, Loose Stools, Melena, N ausea, Odynophagia, Temesmus, Vomiting, Other - Genitourinary Genitourinary: absent: As Per HPI, Change in Urinary Stream, Difficulty Urinating, Dysuria, Flank Pain, Hematuria, Pyuria, Nocturia, Urinary Incontinence, Urinary Frequency, Urinary Hesitance, Urinary Urgency, Voiding Freq/Small Amts, Freq UTI, Hx Renal/Bladder Calculi, Hx /Renal Surgery, Bladder Distension, Other - Reproductive: Male Reproductive:Male: As Per HPI, Prepubesant, Dyspareunia, Genital Lesions, Genital Pruritis, Pelvic Pain, Sexual Dysfunction, Penile Discharge, Genital Odor, Impotence, On ED Medications, Penile Implant, Other - Musculoskeletal Musculoskeletal: absent: As Per HPI, Abnormal Gait, Arthralgias, Atrophy, Back Pain, Deformity, Joint Swelling, Limited Range of Motion, Loss of Height, Muscle Cramps, Muscle Weakness, Myalgias, Neck Pain, Numbness, Radiating Pain into Limb, Stiffness, Tingling, Other - Integumentary Integumentary: absent: As Per HPI, Acne, Alopecia, Bleeding Lesions, Change in Hair, Change in Nails, Change in Pigmentation, Changing Lesions, Dry Skin, Erythema, Furuncle, Hirsutism, Lesions, New Lesions, Non-Healing Lesions, Veena tosensitivity, Pruritus, Rash, Skin Pain, Skin Ulcer, Sores, Striae, Swelling, Unusual Bruising, Wounds, Jaundice, Other - Neurological Neurological: Frequent Falls - Psychiatric Psychiatric: Difficulty Concentrating - Endocrine Endocrine: Polydipsia, Polyuria - Hematologic/Lymphatic Hematologic: absent: As Per HPI, Easy Bleeding, Easy Bruising, Lymphadenopathy, Other Past Patient History - Infectious Disease Hx of Infectious Diseases: None - Tetanus Immunizations Tetanus Immunization: Unknown - Past Medical History & Family History Past Medical History?: Yes - Past Social History Smoking Status: Heavy Smoker > 10 Cigarettes Daily - CARDIAC Hx Congestive Heart Failure: Yes Hx Hypertension: Yes - PULMONARY Hx Respiratory Disorders: No Hx Tuberculosis: No - NEUROLOGICAL Hx Dementia: Yes Hx Seizures: No - HEENT Hx HEENT Problems: No - RENAL Hx Chronic Kidney Disease: No Hx Kidney Stones: No - ENDOCRINE/METABOLIC Hx Diabetes Mellitus Type 2: Yes - HEMATOLOGICAL/ONCOLOGICAL Hx Anemia: Yes Hx Human Immunodeficiency Virus (HIV): No - INTEGUMENTARY Hx Dermatological Problems: No - MUSCULOSKELETAL/RHEUMATOLOGICAL Hx Fractures: Yes (Skull) - GASTROINTESTINAL Hx Gastrointestinal Disorders: Yes HX Swallowing Problems: Yes - GENITOURINARY/GYNECOLOGICAL Hx Sexually Transmitted Disorders: No - PSYCHIATRIC Hx Anxiety: Yes Hx Bipolar Disorder: Yes Hx Depression: Yes Hx Schizophrenia: Yes Hx Substance Use: No - SURGICAL HISTORY Hx Surgeries: Yes Other/Comment: metal plates in head (skull fx) - ANESTHESIA Hx Anesthesia: Yes Hx Anesthesia Reactions: No Hx Malignant Hyperthermia: No Meds Allergies/Adverse Reactions: Allergies Allergy/AdvReac Type Severity Reaction Status Date / Time No Known Allergies Allergy Verified 12/27/17 14:06 - Medications Medications: Current Medications Aripiprazole (Abilify) 5 mg PO BID [facility] Last Admin: 12/28/17 09:41 Dose: 5 mg Aspirin (Ecotrin) 81 mg PO DAILY [facility] Last Admin: 12/28/17 09:41 Dose: 81 mg Clopidogrel Bisulfate (Plavix) 75 mg PO DAILY [facility] Last Admin: 12/28/17 09:41 Dose: 75 mg Clotrimazole (Lotrimin 1%) 1 gm TOP BID [facility] Last Admin: 12/28/17 09:42 Dose: Not Given Divalproex Sodium (Depakote Er) 500 mg PO DAILY [facility] Last Admin: 12/28/17 09:40 Dose: 500 mg Heparin Sodium (Porcine) (Heparin) 5,000 units SC Q8 [facility] Last Admin: 12/28/17 06:16 Dose: 5,000 units Ceftriaxone Sodium 1 gm/ (Sodium Chloride) 100 mls @ 100 mls/hr IVPB DAILY [facility]; Protocol Last Admin: 12/28/17 09:40 Dose: 100 mls/hr Insulin Human Regular 100 unit (/ Sodium Chloride) 100 mls @ 0 mls/hr IV .Q0M [facility]; Protocol Last Titration: 12/28/17 06:00 Dose: 0 units/hr, 0 mls/hr Insulin Aspart (Novolog) 0 unit SC ACHS [facility]; Protocol Last Admin: 12/28/17 08:12 Dose: Not Given Insulin Detemir (Levemir) 17 unit SC Q12 [facility] Last Admin: 12/28/17 09:40 Dose: 17 u Metoprolol Succinate (Toprol Xl) 25 mg PO DAILY [facility] Last Admin: 12/28/17 09:43 Dose: 25 mg Pregabalin (Lyrica) 75 mg PO TID [facility] Last Admin: 12/28/17 09:40 Dose: 75 mg Risperidone (Risperdal Tab) 0.5 mg PO [facility] Last Admin: 12/27/17 21:15 Dose: 0.5 mg Rosuvastatin Calcium (Crestor) 2.5 mg PO HS [facility] Last Admin: 12/27/17 21:16 Dose: 2.5 mg Saccharomyces Boulardii (Florastor) 250 mg PO BID [facility] Last Admin: 12/28/17 10:46 Dose: 250 mg Physical Exam - Constitutional Appears: Chronically Ill - Head Exam Head Exam: ATRAUMATIC, NORMAL INSPECTION, NORMOCEPHALIC - Eye Exam Eye Exam: EOMI, Normal appearance, Periorbital tenderness, PERRL Pupil Exam: NORMAL ACCOMODATION, PERRL - ENT Exam ENT Exam: Mucous Membranes Moist, Normal Exam - Neck Exam Neck exam: Positive for: Normal Inspection - Respiratory Exam Respiratory Exam: Clear to Auscultation Bilateral, NORMAL BREATHING PATTERN - Cardiovascular Exam Cardiovascular Exam: REGULAR RHYTHM - GI/Abdominal Exam GI & Abdominal Exam: Normal Bowel Sounds, Soft - Rectal Exam Rectal Exam: Deferred - Exam Exam: NORMAL INSPECTION - Extremities Exam Extremities exam: Positive for: normal inspection - Back Exam Back exam: NORMAL INSPECTION - Neurological Exam Neurological exam: Alert, Oriented x3, Reflexes Normal - Psychiatric Exam Psychiatric exam: Normal Affect, Normal Mood - Skin Skin Exam: Dry, Intact, Normal Color, Warm Results - Vital Signs Recent Vital Signs: Last Vital Signs Temp 97.5 F L 12/28/17 08:00 Pulse 85 12/28/17 10:00 Resp 11 L 12/28/17 10:00 BP 146/68 12/28/17 09:43 Pulse Ox 100 12/28/17 10:00 - Labs Result Diagrams: 12/28/17 06:33 12/28/17 06:33 Labs: Laboratory Results - last 24 hr 12/27/17 12/27/17 12/27/17 02:45 14:03 14:27 WBC 15.7 H D RBC 3.33 L Hgb 10.8 L Hct 33.2 L MCV 99.7 H D MCH 32.3 H MCHC 32.4 L RDW 13.6 Plt Count 376 D MPV 8.6 Neut % (Auto) 80.1 H Lymph % (Auto) 14.6 L Navarro % (Auto) 5.0 Eos % (Auto) 0.1 Baso % (Auto) 0.2 Neut # (Auto) 12.5 H Lymph # (Auto) 2.3 Navarro # (Auto) 0.8 Eos # (Auto) 0.0 Baso # (Auto) 0.0 Puncture Site Rr pCO2 16 L* pO2 125 H HCO3 9.5 L* ABG pH 7.19 L* ABG Total CO2 6.6 L ABG O2 Saturation 99.2 H ABG Base Excess -19.8 L Artis Test Pos ABG Potassium 4.9 Sodium 132.0 Chloride 95.0 L Glucose > 750 H* D Lactate 1.9 Crit Value Called To Dr zhang Crit Value Called By Ginny meyer Crit Value Read Back Y Blood Gas Notified Time 1555 Potassium Carbon Dioxide Anion Gap BUN Creatinine Est GFR ( Amer) Est GFR (Non-Af Amer) POC Glucose (mg/dL) > 500 H* Random Glucose Hemoglobin A1c Calcium Phosphorus Magnesium Total Bilirubin AST ALT Alkaline Phosphatase Total Protein Albumin Globulin Albumin/Globulin Ratio Lipase Arterial Blood Potassium 4.9 Urine Color Urine Clarity Urine pH Ur Specific Gower Urine Protein Urine Glucose (UA) Urine Ketones Urine Blood Urine Nitrate Urine Bilirubin Urine Urobilinogen Ur Leukocyte Esterase Urine WBC (Auto) Urine RBC (Auto) Ur Squamous Epith Cells Urine Opiates Screen Urine Methadone Screen Ur Barbiturates Screen Ur Phencyclidine Scrn Ur Amphetamines Screen U Benzodiazepines Scrn U Oth Cocaine Metabols U Cannabinoids Screen Alcohol, Quantitative B-Hydroxybutyrate 12/27/17 12/27/17 12/27/17 14:27 14:27 15:11 WBC RBC Hgb Hct MCV MCH MCHC RDW Plt Count MPV Neut % (Auto) Lymph % (Auto) Navarro % (Auto) Eos % (Auto) Baso % (Auto) Neut # (Auto) Lymph # (Auto) Navarro # (Auto) Eos # (Auto) Baso # (Auto) Puncture Site pCO2 pO2 HCO3 ABG pH ABG Total CO2 ABG O2 Saturation ABG Base Excess Artis Test ABG Potassium Sodium 131 L Chloride 89 L Glucose Lactate Crit Value Called To Crit Value Called By Crit Value Read Back Blood Gas Notified Time Potassium 6.9 H* D Carbon Dioxide 8 L* D Anion Gap 41 H BUN 75 H Creatinine 2.8 H Est GFR ( Amer) 28 Est GFR (Non-Af Amer) 23 POC Glucose (mg/dL) Random Glucose 945 H* D Hemoglobin A1c 12.3 H D Calcium 9.7 Phosphorus Magnesium Total Bilirubin 0.5 AST 32 ALT 55 Alkaline Phosphatase 230 H D Total Protein 6.6 Albumin 4.1 Globulin 2.5 Albumin/Globulin Ratio 1.6 Lipase 151 Arterial Blood Potassium Urine Color Yellow Urine Clarity Clear Urine pH 5.0 Ur Specific Gower 1.020 Urine Protein Negative Urine Glucose (UA) 3+ H Urine Ketones 1+ H Urine Blood 1+ H Urine Nitrate Negative Urine Bilirubin Negative Urine Urobilinogen Normal Ur Leukocyte Esterase Neg Urine WBC (Auto) 1 Urine RBC (Auto) 4 H Ur Squamous Epith Cells < 1 Urine Opiates Screen Urine Methadone Screen Ur Barbiturates Screen Ur Phencyclidine Scrn Ur Amphetamines Screen U Benzodiazepines Scrn U Oth Cocaine Metabols U Cannabinoids Screen Alcohol, Quantitative < 10 B-Hydroxybutyrate 12/27/17 12/27/17 12/27/17 15:11 15:27 16:36 WBC RBC Hgb Hct MCV MCH MCHC RDW Plt Count MPV Neut % (Auto) Lymph % (Auto) Navarro % (Auto) Eos % (Auto) Baso % (Auto) Neut # (Auto) Lymph # (Auto) Navarro # (Auto) Eos # (Auto) Baso # (Auto) Puncture Site pCO2 pO2 HCO3 ABG pH ABG Total CO2 ABG O2 Saturation ABG Base Excess Artis Test ABG Potassium Sodium Chloride Glucose Lactate Crit Value Called To Crit Value Called By Crit Value Read Back Blood Gas Notified Time Potassium Carbon Dioxide Anion Gap BUN Creatinine Est GFR ( Amer) Est GFR (Non-Af Amer) POC Glucose (mg/dL) > 500 H* > 500 H* Random Glucose Hemoglobin A1c Calcium Phosphorus Magnesium Total Bilirubin AST ALT Alkaline Phosphatase Total Protein Albumin Globulin Albumin/Globulin Ratio Lipase Arterial Blood Potassium Urine Color Urine Clarity Urine pH Ur Specific Gower Urine Protein Urine Glucose (UA) Urine Ketones Urine Blood Urine Nitrate Urine Bilirubin Urine Urobilinogen Ur Leukocyte Esterase Urine WBC (Auto) Urine RBC (Auto) Ur Squamous Epith Cells Urine Opiates Screen Negative Urine Methadone Screen Negative Ur Barbiturates Screen Negative Ur Phencyclidine Scrn Negative Ur Amphetamines Screen Negative U Benzodiazepines Scrn Negative U Oth Cocaine Metabols Negative U Cannabinoids Screen Negative Alcohol, Quantitative B-Hydroxybutyrate 12/27/17 12/27/17 12/27/17 18:08 18:18 18:53 WBC RBC Hgb Hct MCV MCH MCHC RDW Plt Count MPV Neut % (Auto) Lymph % (Auto) Navarro % (Auto) Eos % (Auto) Baso % (Auto) Neut # (Auto) Lymph # (Auto) Navarro # (Auto) Eos # (Auto) Baso # (Auto) Puncture Site pCO2 pO2 HCO3 ABG pH ABG Total CO2 ABG O2 Saturation ABG Base Excess Artis Test ABG Potassium Sodium 141 Chloride 103 Glucose Lactate Crit Value Called To Crit Value Called By Crit Value Read Back Blood Gas Notified Time Potassium 4.0 Carbon Dioxide 8 L* Anion Gap 33 H BUN 67 H Creatinine 2.5 H Est GFR ( Amer) 32 Est GFR (Non-Af Amer) 27 POC Glucose (mg/dL) > 500 H* 459 H* Random Glucose 544 H* D Hemoglobin A1c Calcium 8.9 Phosphorus Magnesium Total Bilirubin AST ALT Alkaline Phosphatase Total Protein Albumin Globulin Albumin/Globulin Ratio Lipase Arterial Blood Potassium Urine Color Urine Clarity Urine pH Ur Specific Gower Urine Protein Urine Glucose (UA) Urine Ketones Urine Blood Urine Nitrate Urine Bilirubin Urine Urobilinogen Ur Leukocyte Esterase Urine WBC (Auto) Urine RBC (Auto) Ur Squamous Epith Cells Urine Opiates Screen Urine Methadone Screen Ur Barbiturates Screen Ur Phencyclidine Scrn Ur Amphetamines Screen U Benzodiazepines Scrn U Oth Cocaine Metabols U Cannabinoids Screen Alcohol, Quantitative B-Hydroxybutyrate > 6.00 H 12/27/17 12/27/17 12/27/17 20:08 21:03 22:04 WBC RBC Hgb Hct MCV MCH MCHC RDW Plt Count MPV Neut % (Auto) Lymph % (Auto) Navarro % (Auto) Eos % (Auto) Baso % (Auto) Neut # (Auto) Lymph # (Auto) Navarro # (Auto) Eos # (Auto) Baso # (Auto) Puncture Site pCO2 pO2 HCO3 ABG pH ABG Total CO2 ABG O2 Saturation ABG Base Excess Artis Test ABG Potassium Sodium Chloride Glucose Lactate Crit Value Called To Crit Value Called By Crit Value Read Back Blood Gas Notified Time Potassium Carbon Dioxide Anion Gap BUN Creatinine Est GFR ( Amer) Est GFR (Non-Af Amer) POC Glucose (mg/dL) 306 H 220 H 164 H Random Glucose Hemoglobin A1c Calcium Phosphorus Magnesium Total Bilirubin AST ALT Alkaline Phosphatase Total Protein Albumin Globulin Albumin/Globulin Ratio Lipase Arterial Blood Potassium Urine Color Urine Clarity Urine pH Ur Specific Gower Urine Protein Urine Glucose (UA) Urine Ketones Urine Blood Urine Nitrate Urine Bilirubin Urine Urobilinogen Ur Leukocyte Esterase Urine WBC (Auto) Urine RBC (Auto) Ur Squamous Epith Cells Urine Opiates Screen Urine Methadone Screen Ur Barbiturates Screen Ur Phencyclidine Scrn Ur Amphetamines Screen U Benzodiazepines Scrn U Oth Cocaine Metabols U Cannabinoids Screen Alcohol, Quantitative B-Hydroxybutyrate 12/27/17 12/27/17 12/28/17 22:47 23:02 00:07 WBC RBC Hgb Hct MCV MCH MCHC RDW Plt Count MPV Neut % (Auto) Lymph % (Auto) Navarro % (Auto) Eos % (Auto) Baso % (Auto) Neut # (Auto) Lymph # (Auto) Navarro # (Auto) Eos # (Auto) Baso # (Auto) Puncture Site pCO2 pO2 HCO3 ABG pH ABG Total CO2 ABG O2 Saturation ABG Base Excess Artis Test ABG Potassium Sodium 142 Chloride 118 H Glucose Lactate Crit Value Called To Crit Value Called By Crit Value Read Back Blood Gas Notified Time Potassium 4.0 Carbon Dioxide 14 L Anion Gap 15 BUN 50 H Creatinine 1.4 Est GFR ( Amer) > 60 Est GFR (Non-Af Amer) 52 POC Glucose (mg/dL) 142 H 111 H Random Glucose 104 Hemoglobin A1c Calcium 6.6 L Phosphorus Magnesium Total Bilirubin AST ALT Alkaline Phosphatase Total Protein Albumin Globulin Albumin/Globulin Ratio Lipase Arterial Blood Potassium Urine Color Urine Clarity Urine pH Ur Specific Gower Urine Protein Urine Glucose (UA) Urine Ketones Urine Blood Urine Nitrate Urine Bilirubin Urine Urobilinogen Ur Leukocyte Esterase Urine WBC (Auto) Urine RBC (Auto) Ur Squamous Epith Cells Urine Opiates Screen Urine Methadone Screen Ur Barbiturates Screen Ur Phencyclidine Scrn Ur Amphetamines Screen U Benzodiazepines Scrn U Oth Cocaine Metabols U Cannabinoids Screen Alcohol, Quantitative B-Hydroxybutyrate 12/28/17 12/28/17 12/28/17 01:09 02:13 03:03 WBC RBC Hgb Hct MCV MCH MCHC RDW Plt Count MPV Neut % (Auto) Lymph % (Auto) Navarro % (Auto) Eos % (Auto) Baso % (Auto) Neut # (Auto) Lymph # (Auto) Navarro # (Auto) Eos # (Auto) Baso # (Auto) Puncture Site pCO2 pO2 HCO3 ABG pH ABG Total CO2 ABG O2 Saturation ABG Base Excess Artis Test ABG Potassium Sodium Chloride Glucose Lactate Crit Value Called To Crit Value Called By Crit Value Read Back Blood Gas Notified Time Potassium Carbon Dioxide Anion Gap BUN Creatinine Est GFR ( Amer) Est GFR (Non-Af Amer) POC Glucose (mg/dL) 127 H 64 L 99 Random Glucose Hemoglobin A1c Calcium Phosphorus Magnesium Total Bilirubin AST ALT Alkaline Phosphatase Total Protein Albumin Globulin Albumin/Globulin Ratio Lipase Arterial Blood Potassium Urine Color Urine Clarity Urine pH Ur Specific Gower Urine Protein Urine Glucose (UA) Urine Ketones Urine Blood Urine Nitrate Urine Bilirubin Urine Urobilinogen Ur Leukocyte Esterase Urine WBC (Auto) Urine RBC (Auto) Ur Squamous Epith Cells Urine Opiates Screen Urine Methadone Screen Ur Barbiturates Screen Ur Phencyclidine Scrn Ur Amphetamines Screen U Benzodiazepines Scrn U Oth Cocaine Metabols U Cannabinoids Screen Alcohol, Quantitative B-Hydroxybutyrate 12/28/17 12/28/17 12/28/17 04:02 05:11 06:07 WBC RBC Hgb Hct MCV MCH MCHC RDW Plt Count MPV Neut % (Auto) Lymph % (Auto) Navarro % (Auto) Eos % (Auto) Baso % (Auto) Neut # (Auto) Lymph # (Auto) Navarro # (Auto) Eos # (Auto) Baso # (Auto) Puncture Site pCO2 pO2 HCO3 ABG pH ABG Total CO2 ABG O2 Saturation ABG Base Excess Artis Test ABG Potassium Sodium Chloride Glucose Lactate Crit Value Called To Crit Value Called By Crit Value Read Back Blood Gas Notified Time Potassium Carbon Dioxide Anion Gap BUN Creatinine Est GFR ( Amer) Est GFR (Non-Af Amer) POC Glucose (mg/dL) 70 144 H 79 Random Glucose Hemoglobin A1c Calcium Phosphorus Magnesium Total Bilirubin AST ALT Alkaline Phosphatase Total Protein Albumin Globulin Albumin/Globulin Ratio Lipase Arterial Blood Potassium Urine Color Urine Clarity Urine pH Ur Specific Gower Urine Protein Urine Glucose (UA) Urine Ketones Urine Blood Urine Nitrate Urine Bilirubin Urine Urobilinogen Ur Leukocyte Esterase Urine WBC (Auto) Urine RBC (Auto) Ur Squamous Epith Cells Urine Opiates Screen Urine Methadone Screen Ur Barbiturates Screen Ur Phencyclidine Scrn Ur Amphetamines Screen U Benzodiazepines Scrn U Oth Cocaine Metabols U Cannabinoids Screen Alcohol, Quantitative B-Hydroxybutyrate 12/28/17 12/28/17 12/28/17 06:33 06:33 06:50 WBC 11.4 H RBC 2.73 L Hgb 8.8 L D Hct 25.5 L MCV 93.4 D MCH 32.1 H MCHC 34.3 RDW 13.3 Plt Count 263 D MPV 8.2 Neut % (Auto) 68.1 Lymph % (Auto) 24.3 Navarro % (Auto) 6.1 Eos % (Auto) 0.9 Baso % (Auto) 0.6 Neut # (Auto) 7.8 H Lymph # (Auto) 2.8 Navarro # (Auto) 0.7 Eos # (Auto) 0.1 Baso # (Auto) 0.1 Puncture Site pCO2 pO2 HCO3 ABG pH ABG Total CO2 ABG O2 Saturation ABG Base Excess Artis Test ABG Potassium Sodium 142 Chloride 112 H Glucose Lactate Crit Value Called To Crit Value Called By Crit Value Read Back Blood Gas Notified Time Potassium 4.7 Carbon Dioxide 24 Anion Gap 11 BUN 57 H Creatinine 1.6 H Est GFR ( Amer) 54 Est GFR (Non-Af Amer) 45 POC Glucose (mg/dL) 90 Random Glucose 128 H Hemoglobin A1c Calcium 8.3 L Phosphorus 1.9 L Magnesium 2.2 Total Bilirubin 0.2 AST 19 ALT 39 Alkaline Phosphatase 144 H D Total Protein 5.1 L Albumin 2.7 L D Globulin 2.4 Albumin/Globulin Ratio 1.1 Lipase Arterial Blood Potassium Urine Color Urine Clarity Urine pH Ur Specific Gower Urine Protein Urine Glucose (UA) Urine Ketones Urine Blood Urine Nitrate Urine Bilirubin Urine Urobilinogen Ur Leukocyte Esterase Urine WBC (Auto) Urine RBC (Auto) Ur Squamous Epith Cells Urine Opiates Screen Urine Methadone Screen Ur Barbiturates Screen Ur Phencyclidine Scrn Ur Amphetamines Screen U Benzodiazepines Scrn U Oth Cocaine Metabols U Cannabinoids Screen Alcohol, Quantitative B-Hydroxybutyrate 12/28/17 08:07 WBC RBC Hgb Hct MCV MCH MCHC RDW Plt Count MPV Neut % (Auto) Lymph % (Auto) Navarro % (Auto) Eos % (Auto) Baso % (Auto) Neut # (Auto) Lymph # (Auto) Navarro # (Auto) Eos # (Auto) Baso # (Auto) Puncture Site pCO2 pO2 HCO3 ABG pH ABG Total CO2 ABG O2 Saturation ABG Base Excess Artis Test ABG Potassium Sodium Chloride Glucose Lactate Crit Value Called To Crit Value Called By Crit Value Read Back Blood Gas Notified Time Potassium Carbon Dioxide Anion Gap BUN Creatinine Est GFR ( Amer) Est GFR (Non-Af Amer) POC Glucose (mg/dL) 130 H Random Glucose Hemoglobin A1c Calcium Phosphorus Magnesium Total Bilirubin AST ALT Alkaline Phosphatase Total Protein Albumin Globulin Albumin/Globulin Ratio Lipase Arterial Blood Potassium Urine Color Urine Clarity Urine pH Ur Specific Gower Urine Protein Urine Glucose (UA) Urine Ketones Urine Blood Urine Nitrate Urine Bilirubin Urine Urobilinogen Ur Leukocyte Esterase Urine WBC (Auto) Urine RBC (Auto) Ur Squamous Epith Cells Urine Opiates Screen Urine Methadone Screen Ur Barbiturates Screen Ur Phencyclidine Scrn Ur Amphetamines Screen U Benzodiazepines Scrn U Oth Cocaine Metabols U Cannabinoids Screen Alcohol, Quantitative B-Hydroxybutyrate Assessment & Plan - Assessment and Plan (Free Text) Assessment: Palliative consult Full Code, there is no advance directive n chart, PPS 40% I reviewed medical records, all diagnostic studies, examined and interviewed patient in the bed Patient is alert, oriented X 3 with speech that is extremely unclear due to missing teeth. Patent attempts to participate in discussion , but only able to maintain very simple discussion.Patient left his dentures at home. Patient cognition is not up to discussing goals of care or any other deeper and meaning ful conversation. Physical exam reveals chronically ill male, looking older than stated age in no acute distress. Oral mucosa moist. Patient denies increased thirst / urination. Breathing is normal, no adventitious sounds. Denies cough/SOB. Abdomen soft, tolerates diet well, denies constipation. Patient is ambulatory. Reports feeling numbness to his feet and hands due to Diabetic neuropathy. Lyrica 75 mg Po TID on board. BP 146/68, HR 85, O2sat 100 % RA Patient takes his Psych meds; Depacote, Abilify and Risperidone I attempted to discuss goals of care with patient but it was very dificult due to his unclear speech. I asked if I could discuss his condition and plan of care with hi and he agreed. Family meetings scheduled for 1 pm today with patient's . 1:40 pm Patient's did not come for the family meeting as she agreed upon, claiming she did not have a transportation. I offered another meeting for tomorrow morning what she agreed with. This phone conversation was witnessed by the Medical ICU resident who confirmed experiencing the same noncompliant family behavior in the past. I shared this with Doctor Pappas. Impression * Chronically ill male , non compliant with DM meds what is seen in frequent re admissions with same diagnosis of DKA * Uncontrolled diabetes * Patient is not capable of discussing goals of care due to his psych Hx * Patient's is advocating for patient, but was not able to come in today for family meeting * patient is edentulous Suggestions * Blood sugar control * Reinforce compliance with DM meds, diet and exercises at home * Goals of care to be discussed with ; * LTC seems appropriate placement for this patient where all his Medical and nursing needs could be readily met * Ask to bring in patient's dentures; soft diet in mean time Patient's agreed to a family meeting for tomorrow morning.
[2017-12-28] MEDS: Sodium Chloride 0.45% 1,000 ML IV SCH ×2 (14:58→22:26)
[2017-12-28] MEDS: Rosuvastatin Calcium 2.5 mg Tab PO SCH (21:33)
[2017-12-28] MEDS: (Lantus) Insulin Glargine, Recombinant SC SCH (21:34)
[2017-12-28] MEDS: Dextrose 5%/0.45% NS 1,000 ML IV SCH (23:03)
--- NOTE | 2017-12-29 02:48 | CON ---
DATE: 12/28/2017 LOCATION: ICU room #9. HISTORY OF PRESENT ILLNESS: This is a 57-year-old male with known history of type 2 insulin requiring diabetes presenting here with marked hyperglycemic accelerations and worsening generalized body weakness with altered mental status and is being referred now for diabetic evaluation and management. PAST MEDICAL HISTORY: History of type 2 insulin requiring diabetes on a combination of Levemir given as 17 units subcu b.i.d. with Januvia taken as 50 mg once daily with a NovoLog sliding scale as per the family, history of hypertension and dyslipidemia, history of coronary artery disease with previous acute myocardial infarction, history of multiple hospital admissions for diabetic ketoacidosis and dehydration. He also has previous admission for congestive heart failure as noted. There is also significant history of dementia with underlying schizoaffective disorder, there is also chronic history of seizure disorder ____ chronic alcoholism. FAMILY HISTORY: Positive for hypertension and diabetes. SOCIAL HISTORY: The patient has a supportive and family and has significant history of chronic alcoholism and previous nicotine dependence. REVIEW OF SYSTEMS: As per the family, was noted of increasing generalized body weakness with hypersomnolence and lethargy worse on the day of admission, also had bifrontal headaches with visual blurring and disrupted sleep patterns and insomnia prior to this increasing lethargy and hypersomnolence. No chest pain or palpitations, but has had progressive shortness of breath, especially on exertion. His oral intake has been variable with nausea, dyspepsia and episodic bouts of vomiting with upper abdominal pain. Has also had marked polyuria, nocturia, and polydipsia as noted with lower extremity painful paresthesia. PHYSICAL EXAMINATION: GENERAL: This is an average built male in no apparent distress. VITAL SIGNS: Blood pressure 140/80, pulse 100 beats per minute regular, temperature 98, respirations 20. Height is 5 feet and 7 inches, weight is 127 pounds. HEENT: Head is normocephalic. Eyes anicteric with pink conjunctivae. Funduscopy is not possible at this time. Ears, nose and throat otherwise normal. NECK: Supple. Thyroid gland is normal size. No carotid bruits or cervical adenopathy. CARDIOPULMONARY: Some adynamic precordium. S1 and S2 are rapid and regular. LUNGS: Clear to auscultation. ABDOMEN: Flat and soft. Positive bowel sounds. EXTREMITIES: No peripheral edema. Pulses are +2 bilaterally. LABORATORY DATA: The initial chemistry showed a BUN of 75, sodium 131, potassium 6.9, chloride 89, CO2 is 8, glucose is 945, creatinine is 2.8. The glucose values were initially fluctuating now improved with the initiation of an insulin drip infusion as given. The latest chemistry today showed a BUN of 57, sodium 142, potassium 4.7, chloride 112, CO2 24, glucose 128 and creatinine 1.6. His glucose levels have ranged from 90 to 130 mg/dL. ASSESSMENT: This is a 57-year-old male with uncontrolled and decompensated type 2 insulin requiring diabetes presenting with diabetic ketoacidosis and dehydration with hyperosmolar state hyponatremia and hyperkalemia related to increased osmotic diuresis thereof. He also has diabetic microvascular complications of retinopathy, polyneuropathy and nephropathy with underlying chronic kidney disease. Moreover, his diabetic macrovascular complications of coronary artery disease and peripheral arterial disease and vasculopathy. PLAN OF MANAGEMENT: We will modify once again his current insulin regimen and switch him to more physiologic basal and bolus insulin drug combination as ordered. We will discontinue the insulin drip infusion as ordered and detailed orders have been given. We will add NovoLog given as 6 units subcu t.i.d. before meals to start today. We will modify the target scale to obviate hypoglycemia and detailed orders have been given. We will also add Lantus give as 14 units subcu at time daily to start tonight. We will titrate incrementally as indicated to optimize metabolic control and also as his oral intake improve totally. We will continue the vigorous IV hydration at this time and half normal saline to run at 125 mL per hour has been ordered and we will obtain serial chemistries and supplement accordingly as needed. We will follow. Brook Hernandez MD
[2017-12-29] MEDS: (Novolog) Insulin Aspart, Recombinant 100 u/ml 10 ml vial SC SCH ×6 (07:45→17:22)
[2017-12-29] MEDS: Dextrose 5%/0.45% NS 1,000 ML IV SCH ×3 (07:56→21:53)
[2017-12-29 08:47] LABS: BASO # 0.1 K/uL (0.0-0.2); BASO % 0.7 % (0.0-2.0); EOS # 0.2 K/uL (0.0-0.7); EOS % 1.6 % (0.0-4.0); HEMOGLOBIN 9.5 g/dL (12.0-18.0); LYMPH # 3.5 K/uL (1.0-4.3); LYMPH % 32.6 % (20.0-40.0); MEAN CELL VOLUME 93.5 fL (80.0-94.0); MEAN CORPUSCULAR HEMOGLOBIN 32.2 pg (27.0-31.0); MEAN CORPUSCULAR HGB CONC 34.5 g/dL (33.0-37.0); MONO # 0.7 K/uL (0.0-0.8); MONO % 6.1 % (0.0-10.0); NEUT # 6.4 K/uL (1.8-7.0); RBC 2.96 Mil/uL (4.40-5.90); RED CELL DISTRIBUTION WIDTH 13.8 % (11.5-14.5); WHITE BLOOD COUNT 10.8 K/uL (4.8-10.8)
[2017-12-29 09:00] LABS: ALB/GLOB RATIO 1.1 (1.0-2.1); ALBUMIN 2.9 g/dL (3.5-5.0); ALT/SGPT 39 U/L (21-72); AST/SGOT 24 U/L (17-59); BLOOD UREA NITROGEN 29 mg/dL (9-20); CALCIUM 8.8 mg/dl (8.6-10.4); GFR NON-AFRICAN AMERICAN > 60
[2017-12-29] MEDS: Metoprolol Succinate 25 mg XL Tab PO SCH (09:53)
[2017-12-29] MEDS: Divalproex 500 mg ER Tab PO SCH (09:53)
[2017-12-29] MEDS: Saccharomyces Boulardi 250 mg Cap PO SCH ×2 (09:53→17:55)
[2017-12-29] MEDS: Clotrimazole 1% Cream(30 gm) TOP SCH ×2 (10:19→17:56)
--- NOTE | 2017-12-29 11:47 | CP.PCM.PN ---
<Jaxson Patrick - Last Filed: 12/29/17 18:35> Subjective - Date & Time of Evaluation Date of Evaluation: 12/29/17 Time of Evaluation: 11:46 - Subjective Subjective: Jaxson Patrick Medicine progress note for Dr. Pappas Patient seen and examined at bedside. No acute events overnight. Patient is resting comfortably and is alert and oriented x 3. He denies fevers, chills, shortness of breath, abdominal pain, urinary symptoms, or any other complaints at this time. Objective - Vital Signs/Intake and Output Vital Signs (last 24 hours): Temp Pulse Resp BP Pulse Ox 97.8 F 78 20 145/76 99 12/29/17 08:00 12/29/17 08:00 12/29/17 08:00 12/29/17 08:00 12/29/17 08:00 Intake and Output: 12/29/17 12/29/17 06:59 18:59 Intake Total 1920 Output Total 900 Balance 1020 - Medications Medications: Current Medications Aripiprazole (Abilify) 5 mg PO BID [facility] Last Admin: 12/29/17 09:52 Dose: 5 mg Aspirin (Ecotrin) 81 mg PO DAILY [facility] Last Admin: 12/29/17 09:52 Dose: 81 mg Clopidogrel Bisulfate (Plavix) 75 mg PO DAILY [facility] Last Admin: 12/29/17 09:52 Dose: 75 mg Clotrimazole (Lotrimin 1%) 1 gm TOP BID [facility] Last Admin: 12/29/17 10:19 Dose: 1 applic Divalproex Sodium (Depakote Er) 500 mg PO DAILY [facility] Last Admin: 12/29/17 09:53 Dose: 500 mg Heparin Sodium (Porcine) (Heparin) 5,000 units SC Q8 [facility] Last Admin: 12/29/17 07:26 Dose: 5,000 units Ceftriaxone Sodium 1 gm/ (Sodium Chloride) 100 mls @ 100 mls/hr IVPB DAILY [facility]; Protocol Last Admin: 12/29/17 10:01 Dose: 100 mls/hr Dextrose/Sodium Chloride (Dextrose 5%/0.45% Ns 1000 Ml) 1,000 mls @ 100 mls/hr IV .Q10H [facility] Last Admin: 12/29/17 07:56 Dose: 100 mls/hr Insulin Aspart (Novolog) 6 unit SC AC [facility] Last Admin: 12/29/17 07:45 Dose: Not Given Insulin Aspart (Novolog) 0 unit SC ACHS [facility] Last Admin: 12/29/17 07:45 Dose: Not Given Insulin Glargine (Lantus) 14 unit SC HS [facility] Last Admin: 12/28/17 21:34 Dose: 15 units Metoprolol Succinate (Toprol Xl) 25 mg PO DAILY [facility] Last Admin: 12/29/17 09:53 Dose: 25 mg Pregabalin (Lyrica) 75 mg PO TID [facility] Last Admin: 12/29/17 10:01 Dose: 75 mg Risperidone (Risperdal Tab) 0.5 mg PO [facility] Last Admin: 12/28/17 21:33 Dose: 0.5 mg Rosuvastatin Calcium (Crestor) 2.5 mg PO [facility] Last Admin: 12/28/17 21:33 Dose: 2.5 mg Saccharomyces Boulardii (Florastor) 250 mg PO BID [facility] Last Admin: 12/29/17 09:53 Dose: 250 mg - Labs Labs: 12/29/17 08:27 12/29/17 08:27 - Additional Findings Additional findings: - Constitutional Appears: Non-toxic, No Acute Distress - Head Exam Head Exam: NORMAL INSPECTION - Eye Exam Eye Exam: EOMI - ENT Exam ENT Exam: Mucous Membranes Moist - Respiratory Exam Respiratory Exam: Clear to Ausculation Bilateral, NORMAL BREATHING PATTERN. absent: Rales, Rhonchi, Wheezes - Cardiovascular Exam Cardiovascular Exam: REGULAR RHYTHM, +S1, +S2 - GI/Abdominal Exam GI & Abdominal Exam: Soft, Normal Bowel Sounds. absent: Distended, Firm, Guarding, Rigid, Tenderness, Rebound - Extremities Exam Extremities Exam: absent: Pedal Edema, Tenderness - Neurological Exam Neurological Exam: Alert, Awake, Oriented x3 - Psychiatric Exam Psychiatric exam: Normal Affect, Normal Mood - Skin Skin Exam: Dry, Normal Color, Warm Assessment and Plan - Assessment and Plan (Free Text) Assessment: Patient is a 57 year old male with PMH of dementia and multiple hospitalizations due to DKA who was admitted to the ICU for treatment of DKA. Plan: Diabetic Ketoacidosis: - Endocrinology, Dr. Hernandez consulted - Patient is off Insulin drip - Insulin sliding scale - Lantus 14 units SC Q12H - Accuchecks ACHS - Hypoglycemic protocol Schizophrenia and bipolar disorder, and aggressive Behavior: - Pschiatry, Dr. Delgado consulted - C/w Abilify 5mg PO BID - C/w Depakote 500 mg PO QD Normacytic Anemia: - Hb at 9.5 today - No active bleeding at this time - Continue to monitor H & H History of Coronary Artery Disease: - C/w ASA 81mg PO QD - C/w Plavix 75mg PO QD Hypertension - C/w Metoprolol 25mg PO daily Hyperlipidemia: - C/w Crestor 2.5mg PO QD Acute Renal Insufficiency, resolved: -Bladder US (12/27): no hydronephrosis. b/l echogenic kidneys compatible with medical renal disease. no echogenic shadowing renal stones noted. no bladder faye culi, no intrinsic bladder pathology. Abnormal UA: - Urine culture: negative - Discontinue Rocephin Hyperkalemia, resolved: - Likely 2/2 DKA - Hold Lisinopril Prophylaxis/diet: - Heparin 5000 units subq8H - Carbohydrate consistent diet Case discussed with Dr. Mian Patrick PGY-1 <Lashell Pappas V - Last Filed: 12/30/17 19:17> Objective - Vital Signs/Intake and Output Vital Signs (last 24 hours): Temp Pulse Resp BP Pulse Ox 98.8 F 81 96 H 148/80 96 12/30/17 15:47 12/30/17 15:47 12/30/17 15:47 12/30/17 15:47 12/30/17 15:47 Intake and Output: 12/30/17 12/31/17 18:59 06:59 Intake Total 1150 Output Total 1800 Balance -650 - Medications Medications: Current Medications Aripiprazole (Abilify) 5 mg PO BID [facility] Last Admin: 12/30/17 17:44 Dose: 5 mg Aspirin (Ecotrin) 81 mg PO DAILY [facility] Last Admin: 12/30/17 09:22 Dose: 81 mg Clopidogrel Bisulfate (Plavix) 75 mg PO DAILY [facility] Last Admin: 12/30/17 09:22 Dose: 75 mg Clotrimazole (Lotrimin 1%) 1 gm TOP BID [facility] Last Admin: 12/30/17 17:49 Dose: 1 applic Divalproex Sodium (Depakote Er) 500 mg PO DAILY [facility] Last Admin: 12/30/17 09:22 Dose: 500 mg Heparin Sodium (Porcine) (Heparin) 5,000 units SC Q8 [facility] Last Admin: 12/30/17 13:36 Dose: 5,000 units Dextrose/Sodium Chloride (Dextrose 5%/0.45% Ns 1000 Ml) 1,000 mls @ 100 mls/hr IV .Q10H [facility] Last Admin: 12/30/17 17:51 Dose: 100 mls/hr Insulin Aspart (Novolog) 6 unit SC AC [facility] Last Admin: 12/30/17 17:46 Dose: 6 u Insulin Aspart (Novolog) 0 unit SC ACHS [facility] Last Admin: 12/30/17 17:46 Dose: Not Given Insulin Glargine (Lantus) 14 unit SC HS [facility] Last Admin: 12/29/17 21:50 Dose: 14 units Metoprolol Succinate (Toprol Xl) 25 mg PO DAILY [facility] Last Admin: 12/30/17 09:23 Dose: 25 mg Pregabalin (Lyrica) 75 mg PO TID [facility] Last Admin: 12/30/17 17:45 Dose: 75 mg Risperidone (Risperdal Tab) 0.5 mg PO HS [facility] Last Admin: 12/29/17 21:51 Dose: 0.5 mg Rosuvastatin Calcium (Crestor) 2.5 mg PO HS [facility] Last Admin: 12/29/17 21:51 Dose: 2.5 mg Saccharomyces Boulardii (Florastor) 250 mg PO BID [facility] Last Admin: 12/30/17 17:45 Dose: 250 mg - Labs Labs: 12/30/17 11:32 12/30/17 11:32 Assessment and Plan (1) DKA (diabetic ketoacidoses) Status: Acute (2) Dehydration Status: Acute (3) Diabetes mellitus Status: Acute (4) History of coronary artery disease Status: Acute (5) History of hypertension Status: Acute (6) History of schizophrenia Status: Acute (7) Prophylactic measure Status: Acute (8) Schizophrenia Status: Acute (9) UTI (lower urinary tract infection) Status: Acute (10) CAD (coronary artery disease) Status: Chronic (11) Diabetes mellitus type 2, insulin dependent Status: Chronic (12) HTN (hypertension) Status: Chronic Attending/Attestation - Attestation I have personally seen and examined this patient.: Yes I have fully participated in the care of the patient.: Yes I have reviewed all pertinent clinical information, including history, physical exam and plan: Yes Notes (Text): This is late computer entry for 12/29/17. Patient seen, examined and case discussed with medical assembly. Patient transferred out from the ICU to the floor. Patient is medically stable. does not want to take him home. I spoke with psychotherapist social worker, noting patient was very uncooperative in intial conversation; recommended for [facility] case facility. Will consult psych to optimize on his medications. Assessment/Plan 1. History of Uncontrolled Diabetes Mellitus, non-compliant Diabetic Ketoacidosis * Admitted to ICU and stabilized out from ICU * Endocrinology consult * off Insulin drip * Accuchecks QAC and HS * Carbohydrate consistent diet * Hold Lisinopril to prevent hyperkalemia * Hypoglycemic protocol * Novolog insulin sliding scale achs * Levemir 14 units subqHS * D51/2NS 100cc/hr * Crestor 2.5mg POqHS 2. Schizophrenia and Bipolar disorder Aggressive Behavior History of Dementia * Abilify 5mg PO BID * Depakote 500 mg PO daily 3. Hyperkalemia -->resolved * Likely secondary to DKA * D/c Lisinopril se: hyperkalemia 4. Normacytic Anemia (Stable) * Chronic in nature, Hgb at baseline * No active bleeding at this time * Will continue to monitor 5. History of Coronary Artery Disease * Continue ASA and plavix daily * Toprol XL 25mg PO daily 6. History of Hypertension * Toprol XL 25mg PO daily 7. History of Hyperlipidemia * Crestor 2.5mg daily * Lipid panel from 02/2017 * Triglycerides - 225 * Cholesterol - 209 * LDL - 101 * HDL - 56 8. Acute Renal Insufficiency * Bladder US: no hydronephrosis. b/l echogenic kidneys compatible with medical renal disease. no echogenic shadowing renal stones noted. no bladder calculi, no intrinsic bladder pathology. * Resolved 9. Abnormal UA * Urine culture: no growth * start Rocephin 1 gram IV q daily completed 12/29/17 * Blood cultures; negative * Chest xray: negative 10. Prophylactic measures * Heparin 5000 units subq8H * PT/OT eval * Palliative consult-->goals of care; patient is in and out of the hospital for DKA, noncompliance on diabetic meds
[2017-12-29] MEDS: (Lantus) Insulin Glargine, Recombinant SC SCH (21:50)
[2017-12-29] MEDS: Rosuvastatin Calcium 2.5 mg Tab PO SCH (21:51)
--- NOTE | 2017-12-30 04:29 | PN ---
DATE: 12/29/2017 ENDOCRINOLOGY FOLLOWUP NOTE LOCATION: 359. SUBJECTIVE: This is a 57-year-old male with recent uncontrolled type 2 insulin-requiring diabetes, presenting here with diabetic ketoacidosis and dehydration and is now being followed closely for metabolic management. His oral intake remains quite variable. LABORATORY DATA: As per the nursing staff, the glucose values today have ranged from 133 to 162 and 186 mg/dL. His chemistry showed a BUN of 29, sodium 140, potassium 3.8, chloride 107, CO2 of 25, glucose 75, and creatinine 1.1. ASSESSMENT: This is a 57-year-old male with uncontrolled and decompensated type 2 insulin-requiring diabetes, presenting with extremes of glycemic fluctuations relating to the variability of his oral intake as noted. PLAN OF MANAGEMENT: We will modify once again his basal and bolus insulin regimen to optimize metabolic control. We will lower the NovoLog to 6 units subcutaneous t.i.d. before meals as ordered and continue the basal insulin given as Lantus at 14 units subcutaneous at bedtime daily as given. We will obtain serial chemistries and supplement accordingly as needed. We will also continue the low-dose correction scale using NovoLog insulin as ordered. We will follow and advise accordingly. Brook Hernandez MD
[2017-12-30] MEDS: Dextrose 5%/0.45% NS 1,000 ML IV SCH ×4 (04:45→17:51)
[2017-12-30] MEDS: (Novolog) Insulin Aspart, Recombinant 100 u/ml 10 ml vial SC SCH ×7 (07:52→21:32)
[2017-12-30] MEDS: Saccharomyces Boulardi 250 mg Cap PO SCH ×2 (09:22→17:45)
[2017-12-30] MEDS: Divalproex 500 mg ER Tab PO SCH (09:22)
[2017-12-30] MEDS: Metoprolol Succinate 25 mg XL Tab PO SCH (09:23)
[2017-12-30] MEDS: Clotrimazole 1% Cream(30 gm) TOP SCH ×2 (09:23→17:49)
[2017-12-30 11:42] LABS: BASO % 0.6 % (0.0-2.0); EOS # 0.1 K/uL (0.0-0.7); EOS % 1.6 % (0.0-4.0); HEMOGLOBIN 8.9 g/dL (12.0-18.0); LYMPH # 2.3 K/uL (1.0-4.3); LYMPH % 33.4 % (20.0-40.0); MEAN CELL VOLUME 93.2 fL (80.0-94.0); MEAN CORPUSCULAR HEMOGLOBIN 32.1 pg (27.0-31.0); MEAN CORPUSCULAR HGB CONC 34.4 g/dL (33.0-37.0); MEAN PLATELET VOLUME 7.9 fL (7.2-11.7); MONO # 0.5 K/uL (0.0-0.8); MONO % 6.8 % (0.0-10.0); NEUT % 57.6 % (50.0-75.0); NRBC % 0.1 % (0.0-2.0); RBC 2.76 Mil/uL (4.40-5.90); RED CELL DISTRIBUTION WIDTH 13.3 % (11.5-14.5); WHITE BLOOD COUNT 6.9 K/uL (4.8-10.8)
[2017-12-30 11:51] LABS: ALB/GLOB RATIO 1.1 (1.0-2.1); ALBUMIN 2.8 g/dL (3.5-5.0); ALT/SGPT 44 U/L (21-72); AST/SGOT 48 U/L (17-59); BLOOD UREA NITROGEN 14 mg/dL (9-20); CALCIUM 8.6 mg/dl (8.6-10.4); GFR NON-AFRICAN AMERICAN > 60
--- NOTE | 2017-12-30 17:34 | CP.PCM.PN ---
<Veronika Wynn - Last Filed: 12/30/17 17:58> Subjective - Date & Time of Evaluation Date of Evaluation: 12/30/17 Time of Evaluation: 17:31 - Subjective Subjective: Patient seen and examined at bedside. Patient denies chest pain, shortness of breath, abdominal pain Objective - Vital Signs/Intake and Output Vital Signs (last 24 hours): Temp Pulse Resp BP Pulse Ox 98.8 F 81 96 H 148/80 96 12/30/17 15:47 12/30/17 15:47 12/30/17 15:47 12/30/17 15:47 12/30/17 15:47 Intake and Output: 12/30/17 12/30/17 06:59 18:59 Intake Total 1900 1150 Output Total 2450 1800 Balance -550 -650 - Medications Medications: Current Medications Aripiprazole (Abilify) 5 mg PO BID [facility] Last Admin: 12/30/17 09:22 Dose: 5 mg Aspirin (Ecotrin) 81 mg PO DAILY [facility] Last Admin: 12/30/17 09:22 Dose: 81 mg Clopidogrel Bisulfate (Plavix) 75 mg PO DAILY [facility] Last Admin: 12/30/17 09:22 Dose: 75 mg Clotrimazole (Lotrimin 1%) 1 gm TOP BID [facility] Last Admin: 12/30/17 09:23 Dose: 1 applic Divalproex Sodium (Depakote Er) 500 mg PO DAILY [facility] Last Admin: 12/30/17 09:22 Dose: 500 mg Heparin Sodium (Porcine) (Heparin) 5,000 units SC Q8 [facility] Last Admin: 12/30/17 13:36 Dose: 5,000 units Dextrose/Sodium Chloride (Dextrose 5%/0.45% Ns 1000 Ml) 1,000 mls @ 100 mls/hr IV .Q10H [facility] Last Admin: 12/30/17 14:06 Dose: Not Given Insulin Aspart (Novolog) 6 unit SC AC [facility] Last Admin: 12/30/17 11:52 Dose: 6 u Insulin Aspart (Novolog) 0 unit SC ACHS [facility] Last Admin: 12/30/17 11:19 Dose: Not Given Insulin Glargine (Lantus) 14 unit SC HS [facility] Last Admin: 12/29/17 21:50 Dose: 14 units Metoprolol Succinate (Toprol Xl) 25 mg PO DAILY [facility] Last Admin: 12/30/17 09:23 Dose: 25 mg Pregabalin (Lyrica) 75 mg PO TID [facility] Last Admin: 12/30/17 13:36 Dose: 75 mg Risperidone (Risperdal Tab) 0.5 mg PO [facility] Last Admin: 12/29/17 21:51 Dose: 0.5 mg Rosuvastatin Calcium (Crestor) 2.5 mg PO [facility] Last Admin: 12/29/17 21:51 Dose: 2.5 mg Saccharomyces Boulardii (Florastor) 250 mg PO BID [facility] Last Admin: 12/30/17 09:22 Dose: 250 mg - Labs Labs: 12/30/17 11:32 12/30/17 11:32 - Head Exam Head Exam: ATRAUMATIC, NORMAL INSPECTION - Eye Exam Eye Exam: EOMI, Normal appearance - Neck Exam Neck Exam: Normal Inspection - Respiratory Exam Respiratory Exam: Clear to Ausculation Bilateral, NORMAL BREATHING PATTERN - Cardiovascular Exam Cardiovascular Exam: REGULAR RHYTHM - GI/Abdominal Exam GI & Abdominal Exam: Soft, Normal Bowel Sounds - Extremities Exam Extremities Exam: Normal Inspection. absent: Tenderness - Neurological Exam Neurological Exam: Alert, Awake. absent: Oriented x3 (Patient thinks it is year 1917.) - Psychiatric Exam Psychiatric exam: Normal Affect, Normal Mood - Skin Skin Exam: Dry, Intact, Normal Color, Warm Assessment and Plan - Assessment and Plan (Free Text) Assessment: 57 year old male with PMHx of dementia and DKA who was admitted to the ICU for treatment of DKA. Now on inpatient floor and hemodynamically stable. DKA has resolved. DKA - resolved and off insulin drip, now treating DM: -133 to 218 glucose range - Novolog 6 units ac [facility] - Lantus 14 units SC hs - Accuchecks ACHS - Hypoglycemic protocol - Endocrinology consulted Schizophrenia and bipolar disorder: - Abilify 5mg PO BID - Depakote 500 mg PO QD -psych consulted History of NSTEMI: - continue with ASA 81mg and Plavix 75mg PO QD - continue with Crestor 2.5mg PO QD - continue with Metoprolol 25mg PO daily Acute Renal Insufficiency, resolved: -Bladder US 12/27: wnl -BUN/Cr 29/1.1 -> 14/1 Normocytic Anemia: - Hb at 9.5 -> 8.9 and without active bleeding at this time - Continue to monitor Hyperkalemia, resolved: - Likely 2/2 DKA -lisinopril was held due to lytes but now wnl - Lisinopril 2.5 mg PO QD added considering his DM and elevated BP 140-160/70s-80s Prophylaxis/diet: - DVT: Heparin 5000 units sq q8h Case discussed with Dr. Mian Wynn PGY-1 <Lashell Pappas V - Last Filed: 12/30/17 19:15> Objective - Vital Signs/Intake and Output Vital Signs (last 24 hours): Temp Pulse Resp BP Pulse Ox 98.8 F 81 96 H 148/80 96 12/30/17 15:47 12/30/17 15:47 12/30/17 15:47 12/30/17 15:47 12/30/17 15:47 Intake and Output: 12/30/17 12/31/17 18:59 06:59 Intake Total 1150 Output Total 1800 Balance -650 - Medications Medications: Current Medications Aripiprazole (Abilify) 5 mg PO BID [facility] Last Admin: 12/30/17 17:44 Dose: 5 mg Aspirin (Ecotrin) 81 mg PO DAILY [facility] Last Admin: 12/30/17 09:22 Dose: 81 mg Clopidogrel Bisulfate (Plavix) 75 mg PO DAILY [facility] Last Admin: 12/30/17 09:22 Dose: 75 mg Clotrimazole (Lotrimin 1%) 1 gm TOP BID [facility] Last Admin: 12/30/17 17:49 Dose: 1 applic Divalproex Sodium (Depakote Er) 500 mg PO DAILY [facility] Last Admin: 12/30/17 09:22 Dose: 500 mg Heparin Sodium (Porcine) (Heparin) 5,000 units SC Q8 [facility] Last Admin: 12/30/17 13:36 Dose: 5,000 units Dextrose/Sodium Chloride (Dextrose 5%/0.45% Ns 1000 Ml) 1,000 mls @ 100 mls/hr IV .Q10H [facility] Last Admin: 12/30/17 17:51 Dose: 100 mls/hr Insulin Aspart (Novolog) 6 unit SC AC [facility] Last Admin: 12/30/17 17:46 Dose: 6 u Insulin Aspart (Novolog) 0 unit SC ACHS [facility] Last Admin: 12/30/17 17:46 Dose: Not Given Insulin Glargine (Lantus) 14 unit SC [facility] Last Admin: 12/29/17 21:50 Dose: 14 units Metoprolol Succinate (Toprol Xl) 25 mg PO DAILY [facility] Last Admin: 12/30/17 09:23 Dose: 25 mg Pregabalin (Lyrica) 75 mg PO TID [facility] Last Admin: 12/30/17 17:45 Dose: 75 mg Risperidone (Risperdal Tab) 0.5 mg PO [facility] Last Admin: 12/29/17 21:51 Dose: 0.5 mg Rosuvastatin Calcium (Crestor) 2.5 mg PO [facility] Last Admin: 12/29/17 21:51 Dose: 2.5 mg Saccharomyces Boulardii (Florastor) 250 mg PO BID [facility] Last Admin: 12/30/17 17:45 Dose: 250 mg - Labs Labs: 12/30/17 11:32 12/30/17 11:32 Assessment and Plan (1) DKA (diabetic ketoacidoses) Status: Acute (2) Dehydration Status: Acute (3) Diabetes mellitus Status: Acute (4) History of coronary artery disease Status: Acute (5) History of hypertension Status: Acute (6) History of schizophrenia Status: Acute (7) Prophylactic measure Status: Acute (8) Schizophrenia Status: Acute (9) UTI (lower urinary tract infection) Status: Acute (10) CAD (coronary artery disease) Status: Chronic (11) Diabetes mellitus type 2, insulin dependent Status: Chronic (12) HTN (hypertension) Status: Chronic Attending/Attestation - Attestation I have personally seen and examined this patient.: Yes I have fully participated in the care of the patient.: Yes I have reviewed all pertinent clinical information, including history, physical exam and plan: Yes Notes (Text): Patient seen, examined and case discussed with day-time resident. Patient is very calm, and cooperative this afternoon. Patient had a bowel movement. We will restart Lisinopril 2.5mg once a day. Patient is pending psych evaluation. Disposition: does not want to take him home; discussed with social work yesterday will re-attempt longterm care facility. Assessment/Plan 1. History of Uncontrolled Diabetes Mellitus, non-compliant Diabetic Ketoacidosis * Admitted to ICU and stabilized out from ICU * Endocrinology consult * off Insulin drip * Accuchecks QAC and HS * Carbohydrate consistent diet * Hold Lisinopril to prevent hyperkalemia * Hypoglycemic protocol * Novolog insulin sliding scale achs * Levemir 14 units subqHS * D51/2NS 100cc/hr * Crestor 2.5mg POqHS 2. Schizophrenia and Bipolar disorder Aggressive Behavior History of Dementia * Abilify 5mg PO BID * Depakote 500 mg PO daily 3. Hyperkalemia -->resolved * Likely secondary to DKA * D/c Lisinopril se: hyperkalemia 4. Normacytic Anemia (Stable) * Chronic in nature, Hgb at baseline * Hgb drop but I suspect its dilutional * No active bleeding at this time * Will continue to monitor 5. History of Coronary Artery Disease * Continue ASA and plavix daily * Toprol XL 25mg PO daily 6. History of Hypertension * Toprol XL 25mg PO daily 7. History of Hyperlipidemia * Crestor 2.5mg daily * Lipid panel from 02/2017 * Triglycerides - 225 * Cholesterol - 209 * LDL - 101 * HDL - 56 8. Acute Renal Insufficiency * Bladder US: no hydronephrosis. b/l echogenic kidneys compatible with medical renal disease. no echogenic shadowing renal stones noted. no bladder calculi, no intrinsic bladder pathology. * Resolved 9. Abnormal UA * Urine culture: no growth * start Rocephin 1 gram IV q daily completed 12/29/17 * Blood cultures; negative * Chest xray: negative 10. Prophylactic measures * Heparin 5000 units subq8H * PT/OT eval * Palliative consult-->goals of care; patient is in and out of the hospital for DKA, noncompliance on diabetic meds
--- NOTE | 2017-12-30 20:45 | CP.PCM.PN ---
<Elias Quintanilla - Last Filed: 12/31/17 03:27> Subjective - Date & Time of Evaluation Date of Evaluation: 12/31/17 Time of Evaluation: 03:27 - Subjective Subjective: PGY-[address] Pappas - 12/31 Progress Note Patient seen and examined at bedside. No acute events reported by nursing. Patient appears comfortable. Patient denies chest pain, shortness of breath, abdominal pain. Objective - Vital Signs/Intake and Output Vital Signs (last 24 hours): Temp Pulse Resp BP Pulse Ox 98.8 F 81 96 H 148/80 96 12/30/17 15:47 12/30/17 15:47 12/30/17 15:47 12/30/17 15:47 12/30/17 15:47 Intake and Output: 12/30/17 12/31/17 18:59 06:59 Intake Total 1150 Output Total 1800 Balance -650 - Medications Medications: Current Medications Aripiprazole (Abilify) 5 mg PO BID [facility] Last Admin: 12/30/17 17:44 Dose: 5 mg Aspirin (Ecotrin) 81 mg PO DAILY [facility] Last Admin: 12/30/17 09:22 Dose: 81 mg Clopidogrel Bisulfate (Plavix) 75 mg PO DAILY [facility] Last Admin: 12/30/17 09:22 Dose: 75 mg Clotrimazole (Lotrimin 1%) 1 gm TOP BID [facility] Last Admin: 12/30/17 17:49 Dose: 1 applic Divalproex Sodium (Depakote Er) 500 mg PO DAILY [facility] Last Admin: 12/30/17 09:22 Dose: 500 mg Heparin Sodium (Porcine) (Heparin) 5,000 units SC Q8 [facility] Last Admin: 12/30/17 13:36 Dose: 5,000 units Dextrose/Sodium Chloride (Dextrose 5%/0.45% Ns 1000 Ml) 1,000 mls @ 100 mls/hr IV .Q10H [facility] Last Admin: 12/30/17 17:51 Dose: 100 mls/hr Insulin Aspart (Novolog) 6 unit SC AC [facility] Last Admin: 12/30/17 17:46 Dose: 6 u Insulin Aspart (Novolog) 0 unit SC ACHS [facility] Last Admin: 12/30/17 17:46 Dose: Not Given Insulin Glargine (Lantus) 14 unit SC HS [facility] Last Admin: 12/29/17 21:50 Dose: 14 units Metoprolol Succinate (Toprol Xl) 25 mg PO DAILY [facility] Last Admin: 12/30/17 09:23 Dose: 25 mg Pregabalin (Lyrica) 75 mg PO TID [facility] Last Admin: 12/30/17 17:45 Dose: 75 mg Risperidone (Risperdal Tab) 0.5 mg PO [facility] Last Admin: 12/29/17 21:51 Dose: 0.5 mg Rosuvastatin Calcium (Crestor) 2.5 mg PO [facility] Last Admin: 12/29/17 21:51 Dose: 2.5 mg Saccharomyces Boulardii (Florastor) 250 mg PO BID [facility] Last Admin: 12/30/17 17:45 Dose: 250 mg - Labs Labs: 12/30/17 11:32 12/30/17 11:32 - Constitutional Appears: Non-toxic, No Acute Distress - Head Exam Head Exam: ATRAUMATIC, NORMAL INSPECTION - Eye Exam Eye Exam: EOMI, Normal appearance - ENT Exam ENT Exam: Mucous Membranes Moist - Neck Exam Neck Exam: Normal Inspection. absent: Tenderness - Respiratory Exam Respiratory Exam: Clear to Ausculation Bilateral. absent: Rales, Rhonchi, Wheezes - Cardiovascular Exam Cardiovascular Exam: REGULAR RHYTHM, +S1, +S2 - GI/Abdominal Exam GI & Abdominal Exam: Soft, Normal Bowel Sounds. absent: Tenderness - Extremities Exam Extremities Exam: Normal Capillary Refill, Normal Inspection. absent: Pedal Edema, Tenderness - Neurological Exam Neurological Exam: Alert, Awake. absent: Oriented x3 - Psychiatric Exam Psychiatric exam: Normal Affect, Normal Mood - Skin Skin Exam: Dry, Intact, Normal Color Assessment and Plan - Assessment and Plan (Free Text) Assessment: 57 year old male with PMHx of dementia and DKA who was admitted to the ICU for treatment of DKA. Now on inpatient floor and hemodynamically stable. DKA has resolved. DKA - resolved and off insulin drip, now treating DM: -133 to 218 glucose range - Novolog 6 units ac [facility] - Lantus 14 units SC hs - Accuchecks ACHS - Hypoglycemic protocol - Endocrinology consulted Schizophrenia and bipolar disorder: - Abilify 5mg PO BID - Depakote 500 mg PO QD -psych consulted History of NSTEMI: - continue with ASA 81mg and Plavix 75mg PO QD - continue with Crestor 2.5mg PO QD - continue with Metoprolol 25mg PO daily Acute Renal Insufficiency, resolved: -Bladder US 12/27: wnl -BUN/Cr 29/1.1 -> 14/ Normocytic Anemia: - Hb at 9.5 -> 8.9 and without active bleeding at this time - Continue to monitor Hyperkalemia, resolved: - Likely 2/2 DKA -lisinopril was held due to lytes but now wnl - Lisinopril 2.5 mg PO QD added considering his DM and elevated BP 140-160/70s-80s Prophylaxis/diet: - DVT: Heparin 5000 units sq q8h Case discussed with Dr. Mian Quintanilla, PGY-1 <Lashell Pappas V - Last Filed: 01/01/18 08:35> Objective - Vital Signs/Intake and Output Vital Signs (last 24 hours): Temp Pulse Resp BP Pulse Ox 98.4 F 71 20 149/69 98 12/31/17 23:57 12/31/17 23:57 12/31/17 23:57 12/31/17 23:57 12/31/17 23:57 Intake and Output: 01/01/18 01/01/18 06:59 18:59 Intake Total 900 Output Total 500 Balance 400 - Medications Medications: Current Medications Aripiprazole (Abilify) 5 mg PO BID [facility] Last Admin: 12/31/17 17:45 Dose: 5 mg Aspirin (Ecotrin) 81 mg PO DAILY [facility] Last Admin: 12/31/17 09:22 Dose: 81 mg Clopidogrel Bisulfate (Plavix) 75 mg PO DAILY [facility] Last Admin: 12/31/17 09:21 Dose: 75 mg Clotrimazole (Lotrimin 1%) 1 gm TOP BID [facility] Last Admin: 12/31/17 17:45 Dose: 1 applic Divalproex Sodium (Depakote Er) 500 mg PO DAILY [facility] Last Admin: 12/31/17 09:21 Dose: 500 mg Heparin Sodium (Porcine) (Heparin) 5,000 units SC Q8 [facility] Last Admin: 01/01/18 05:29 Dose: 5,000 units Sodium Chloride (Sodium Chloride 0.45%) 1,000 mls @ 75 mls/hr IV .[id number] [facility] Last Admin: 01/01/18 01:48 Dose: 75 mls/hr Insulin Aspart (Novolog) 6 unit SC AC [facility] Last Admin: 12/31/17 17:55 Dose: 6 u Insulin Aspart (Novolog) 0 unit SC ACHS [facility] Last Admin: 12/31/17 21:31 Dose: Not Given Insulin Glargine (Lantus) 14 unit SC HS [facility] Last Admin: 12/31/17 21:31 Dose: 14 units Metoprolol Succinate (Toprol Xl) 25 mg PO DAILY [facility] Last Admin: 12/31/17 09:21 Dose: 25 mg Pregabalin (Lyrica) 75 mg PO TID [facility] Last Admin: 12/31/17 17:45 Dose: 75 mg Risperidone (Risperdal Tab) 0.5 mg PO HS [facility] Last Admin: 12/31/17 21:30 Dose: 0.5 mg Rosuvastatin Calcium (Crestor) 2.5 mg PO HS [facility] Last Admin: 12/31/17 21:30 Dose: 2.5 mg Saccharomyces Boulardii (Florastor) 250 mg PO BID [facility] Last Admin: 12/31/17 17:45 Dose: 250 mg - Labs Labs: 01/01/18 06:47 01/01/18 06:47 - Head Exam Head Exam: NORMOCEPHALIC - Respiratory Exam Respiratory Exam: NORMAL BREATHING PATTERN - Neurological Exam Neurological Exam: Oriented x3 - Skin Skin Exam: Warm Assessment and Plan (1) DKA (diabetic ketoacidoses) Status: Acute (2) Dehydration Status: Acute (3) Diabetes mellitus Status: Acute (4) History of coronary artery disease Status: Acute (5) History of hypertension Status: Acute (6) History of schizophrenia Status: Acute (7) Prophylactic measure Status: Acute (8) Schizophrenia Status: Acute (9) UTI (lower urinary tract infection) Status: Acute (10) CAD (coronary artery disease) Status: Chronic (11) Diabetes mellitus type 2, insulin dependent Status: Chronic (12) HTN (hypertension) Status: Chronic Attending/Attestation - Attestation I have personally seen and examined this patient.: Yes I have fully participated in the care of the patient.: Yes I have reviewed all pertinent clinical information, including history, physical exam and plan: Yes Notes (Text): This is late computer entry for 12/31/17. Patient seen in the afternoon approximately 1:30PM. Per clinical partner, he was been cooperative, no fighting, no aggression on her shift. Patient is approachable, saying aggie, wondering when he can go home. We are awaiting psychiatry consult for evaluation. We are hoping to optimize his medications for his multiple psychiatric conditions for him to be a candidate for [facility] care facility. His refuses to bring him home. 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 Disposition: does not want to take him home; discussed with social work on monday will re-attempt [facility] care facility for discharge planning. recommended for psych consult. Assessment/Plan 1. History of Uncontrolled Diabetes Mellitus, non-compliant Diabetic Ketoacidosis * Admitted to ICU and stabilized out from ICU * Endocrinology consult * off Insulin drip * Accuchecks QAC and HS * Carbohydrate consistent diet * Hold Lisinopril to prevent hyperkalemia * Hypoglycemic protocol * Novolog insulin sliding scale achs * Levemir 14 units subqHS * d/c D51/2NS 100cc/hr by endo * Crestor 2.5mg POqHS 2. Schizophrenia and Bipolar disorder Aggressive Behavior History of Dementia * Abilify 5mg PO BID * Depakote 500 mg PO daily 3. Hyperkalemia -->resolved * Likely secondary to DKA * D/c Lisinopril se: hyperkalemia 4. Normacytic Anemia (Stable) * Chronic in nature, Hgb at baseline * in the 9s * No active bleeding at this time * Will continue to monitor 5. History of Coronary Artery Disease * Continue ASA and plavix daily * Toprol XL 25mg PO daily * Restart low dose lisinopril 6. History of Hypertension * Toprol XL 25mg PO daily 7. History of Hyperlipidemia * Crestor 2.5mg daily * Lipid panel from 02/2017 * Triglycerides - 225 * Cholesterol - 209 * LDL - 101 * HDL - 56 8. Acute Renal Insufficiency * Bladder US: no hydronephrosis. b/l echogenic kidneys compatible with medical renal disease. no echogenic shadowing renal stones noted. no bladder calculi, no intrinsic bladder pathology. * Resolved 9. Abnormal UA * Urine culture: no growth * start Rocephin 1 gram IV q daily completed 12/29/17 * Blood cultures; negative * Chest xray: negative 10. Prophylactic measures * Heparin 5000 units subq8H * PT/OT eval * Palliative consult-->goals of care; patient is in and out of the hospital for DKA, noncompliance on diabetic meds Disposition: pending psych consult; pending f/u with palliative care in regards to goals of care
[2017-12-30] MEDS: (Lantus) Insulin Glargine, Recombinant SC SCH (21:32)
[2017-12-30] MEDS: Rosuvastatin Calcium 2.5 mg Tab PO SCH (21:33)
--- NOTE | 2017-12-30 23:26 | PN ---
DATE: 12/30/2017 ENDO FOLLOWUP NOTE LOCATION: In room 359. SUBJECTIVE: This is a 57-year-old male with recent uncontrolled type 2 insulin-requiring diabetes, presenting here with diabetic ketoacidosis and dehydration, and has since then improved clinically and metabolically as noted thereof. His oral intake, however, remains very variable with suboptimal meal portions as noted. His glycemic levels today have ranged from 133-162 and 186 mg per dL. LABORATORY DATA: His chemistry showed a BUN of 14, sodium 136, potassium 5, chloride 103, CO2 of 26, glucose 218, and creatinine 1. ASSESSMENT AND PLAN: This is a 57-year-old male with uncontrolled and decompensated type 2 insulin-requiring diabetes, presenting here with dehydration and diabetic ketoacidosis, and has since then improved clinically and metabolically as noted thereof. So at this time, we will continue the same basal and bolus insulin regimen to allow for dose equilibration and keep him on Novolog given as 6 units subcutaneously t.i.d. before meals as ordered. We will continue the low-dose correction scale using Novolog insulin as given. We will also continue the same basal insulin given as Lantus at 14 units subcutaneously at bedtime daily as given. We will obtain serial chemistries and supplement accordingly as needed. We will follow. Brook Hernandez MD
[2017-12-31 00:23] VITALS: RESP 20
[2017-12-31] MEDS: Dextrose 5%/0.45% NS 1,000 ML IV SCH ×2 (01:39→10:04)
[2017-12-31] MEDS: (Novolog) Insulin Aspart, Recombinant 100 u/ml 10 ml vial SC SCH ×7 (07:34→21:31)
[2017-12-31 08:45] LABS: BASO % 0.7 % (0.0-2.0); EOS # 0.2 K/uL (0.0-0.7); EOS % 3.1 % (0.0-4.0); HEMOGLOBIN 8.9 g/dL (12.0-18.0); LYMPH # 2.6 K/uL (1.0-4.3); LYMPH % 39.8 % (20.0-40.0); MEAN CELL VOLUME 93.4 fL (80.0-94.0); MEAN CORPUSCULAR HEMOGLOBIN 31.8 pg (27.0-31.0); MEAN PLATELET VOLUME 8.5 fL (7.2-11.7); MONO # 0.5 K/uL (0.0-0.8); MONO % 7.4 % (0.0-10.0); NEUT # 3.2 K/uL (1.8-7.0); RBC 2.81 Mil/uL (4.40-5.90); RED CELL DISTRIBUTION WIDTH 13.5 % (11.5-14.5); WHITE BLOOD COUNT 6.5 K/uL (4.8-10.8)
[2017-12-31 09:05] LABS: ALB/GLOB RATIO 1.1 (1.0-2.1); ALBUMIN 2.8 g/dL (3.5-5.0); ALT/SGPT 41 U/L (21-72); AST/SGOT 38 U/L (17-59); BLOOD UREA NITROGEN 15 mg/dL (9-20); CALCIUM 8.8 mg/dl (8.6-10.4); GFR NON-AFRICAN AMERICAN > 60
[2017-12-31] MEDS: Divalproex 500 mg ER Tab PO SCH (09:21)
[2017-12-31] MEDS: Saccharomyces Boulardi 250 mg Cap PO SCH ×2 (09:21→17:45)
[2017-12-31] MEDS: Metoprolol Succinate 25 mg XL Tab PO SCH (09:21)
[2017-12-31] MEDS: Clotrimazole 1% Cream(30 gm) TOP SCH ×2 (09:28→17:45)
[2017-12-31] MEDS: Sodium Chloride 0.45% 1,000 ML IV SCH (12:07)
--- NOTE | 2017-12-31 20:23 | PN ---
DATE: 12/31/2017 ENDOCRINOLOGY FOLLOWUP NOTE LOCATION: Room 359. SUBJECTIVE: This is a 57-year-old male with recent uncontrolled type 2 insulin requiring diabetes, now being followed closely for metabolic management. His oral intake remains quite variable as per the nursing staff with supervening episodic moments of symptomatic hypoglycemia as noted thereof. His glycemic levels today have improved overnight and the glucose values have ranged from 133 to 162 mg/dL. His latest chemistries showed a BUN of 15, sodium 136, potassium 4.4, chloride 103, CO2 of 27, glucose 184, and creatinine 1. PLAN: At this time, we will continue the same basal and bolus insulin regimen to allow for dose equilibration and keep him on the NovoLog given as 6 units t.i.d. before meals as ordered. We will continue the low dose correction scale using NovoLog insulin as given. We will also continue the basal insulin given as Lantus at units subcu at bedtime daily to start tonight. We will titrate incrementally as indicated to optimize metabolic control. Also, continue the IV hydration lowered to 75 mL/hr to fully replenish the lost fluids and electrolytes from the recent osmotic diuresis thereof. We will follow with you. Brook Hernandez MD
[2017-12-31] MEDS: Rosuvastatin Calcium 2.5 mg Tab PO SCH (21:30)
[2017-12-31] MEDS: (Lantus) Insulin Glargine, Recombinant SC SCH (21:31)
[2018-01-01] MEDS: Sodium Chloride 0.45% 1,000 ML IV SCH ×2 (01:48→19:54)
[2018-01-01 06:57] LABS: BASO % 0.5 % (0.0-2.0); EOS # 0.2 K/uL (0.0-0.7); EOS % 3.5 % (0.0-4.0); HEMOGLOBIN 8.8 g/dL (12.0-18.0); LYMPH # 2.6 K/uL (1.0-4.3); LYMPH % 38.1 % (20.0-40.0); MEAN CORPUSCULAR HEMOGLOBIN 31.9 pg (27.0-31.0); MEAN CORPUSCULAR HGB CONC 34.3 g/dL (33.0-37.0); MEAN PLATELET VOLUME 8.1 fL (7.2-11.7); MONO # 0.5 K/uL (0.0-0.8); NEUT # 3.4 K/uL (1.8-7.0); NEUT % 49.9 % (50.0-75.0); RBC 2.75 Mil/uL (4.40-5.90); RED CELL DISTRIBUTION WIDTH 13.4 % (11.5-14.5); WHITE BLOOD COUNT 6.8 K/uL (4.8-10.8)
[2018-01-01 07:27] LABS: ALB/GLOB RATIO 1.2 (1.0-2.1); ALBUMIN 2.9 g/dL (3.5-5.0); ALT/SGPT 38 U/L (21-72); AST/SGOT 29 U/L (17-59); BLOOD UREA NITROGEN 25 mg/dL (9-20); CALCIUM 8.8 mg/dl (8.6-10.4); GFR NON-AFRICAN AMERICAN 57
--- NOTE | 2018-01-01 07:39 | CARD ---
APPROVED REPORT Date of service: 12/27/2017 EKG Measurement Heart [id number] <Conclusion> Normal sinus rhythm Nonspecific ST and T wave abnormality Abnormal ECG
[2018-01-01] MEDS: Divalproex 500 mg ER Tab PO SCH (09:46)
[2018-01-01] MEDS: (Novolog) Insulin Aspart, Recombinant 100 u/ml 10 ml vial SC SCH ×7 (09:47→21:32)
[2018-01-01] MEDS: Metoprolol Succinate 25 mg XL Tab PO SCH (09:47)
[2018-01-01] MEDS: Saccharomyces Boulardi 250 mg Cap PO SCH ×2 (09:54→17:33)
--- NOTE | 2018-01-01 10:11 | CP.PCM.PN ---
<Jaxson Patrick - Last Filed: 01/01/18 11:09> Subjective - Date & Time of Evaluation Date of Evaluation: 01/01/18 Time of Evaluation: 10:11 - Subjective Subjective: Jaxson Patrick Medicine progress note for Dr. Saavedra Patient seen and examined at bedside. No acute events overnight. Patient has no complaints at this time. He denies fevers, chills, shortness of breath, chest pain, abdominal pain, nausea, vomiting, or urinary symptoms. Objective - Vital Signs/Intake and Output Vital Signs (last 24 hours): Temp Pulse Resp BP Pulse Ox 98.2 F 72 20 156/83 H 97 01/01/18 08:00 01/01/18 08:00 01/01/18 08:00 01/01/18 08:00 01/01/18 08:00 Intake and Output: 01/01/18 01/01/18 06:59 18:59 Intake Total 900 Output Total 500 Balance 400 - Medications Medications: Current Medications Aripiprazole (Abilify) 5 mg PO BID [facility] Last Admin: 01/01/18 09:46 Dose: 5 mg Aspirin (Ecotrin) 81 mg PO DAILY [facility] Last Admin: 01/01/18 09:47 Dose: 81 mg Clopidogrel Bisulfate (Plavix) 75 mg PO DAILY [facility] Last Admin: 01/01/18 09:47 Dose: 75 mg Clotrimazole (Lotrimin 1%) 1 gm TOP BID [facility] Last Admin: 12/31/17 17:45 Dose: 1 applic Divalproex Sodium (Depakote Er) 500 mg PO DAILY [facility] Last Admin: 01/01/18 09:46 Dose: 500 mg Heparin Sodium (Porcine) (Heparin) 5,000 units SC Q8 [facility] Last Admin: 01/01/18 05:29 Dose: 5,000 units Sodium Chloride (Sodium Chloride 0.45%) 1,000 mls @ 75 mls/hr IV .[id number] [facility] Last Admin: 01/01/18 01:48 Dose: 75 mls/hr Insulin Aspart (Novolog) 6 unit SC AC [facility] Last Admin: 01/01/18 09:48 Dose: 6 u Insulin Aspart (Novolog) 0 unit SC ACHS [facility] Last Admin: 01/01/18 09:47 Dose: Not Given Insulin Glargine (Lantus) 14 unit SC [facility] Last Admin: 12/31/17 21:31 Dose: 14 units Metoprolol Succinate (Toprol Xl) 25 mg PO DAILY [facility] Last Admin: 01/01/18 09:47 Dose: 25 mg Pregabalin (Lyrica) 75 mg PO TID [facility] Last Admin: 01/01/18 09:47 Dose: 75 mg Risperidone (Risperdal Tab) 0.5 mg PO [facility] Last Admin: 12/31/17 21:30 Dose: 0.5 mg Rosuvastatin Calcium (Crestor) 2.5 mg PO [facility] Last Admin: 12/31/17 21:30 Dose: 2.5 mg Saccharomyces Boulardii (Florastor) 250 mg PO BID [facility] Last Admin: 01/01/18 09:54 Dose: 250 mg - Labs Labs: 01/01/18 06:47 01/01/18 06:47 - Additional Findings Additional findings: - Constitutional Appears: Non-toxic, No Acute Distress - Head Exam Head Exam: ATRAUMATIC, NORMAL INSPECTION - Eye Exam Eye Exam: EOMI, Normal appearance - ENT Exam ENT Exam: Mucous Membranes Moist - Neck Exam Neck Exam: Normal Inspection. absent: Tenderness - Respiratory Exam Respiratory Exam: Clear to Ausculation Bilateral. absent: Rales, Rhonchi, Wheezes - Cardiovascular Exam Cardiovascular Exam: REGULAR RHYTHM, +S1, +S2 - GI/Abdominal Exam GI & Abdominal Exam: Soft, Normal Bowel Sounds. absent: Tenderness - Extremities Exam Extremities Exam: Normal Capillary Refill, Normal Inspection. absent: Pedal Edema, Tenderness - Neurological Exam Neurological Exam: Alert, Awake. absent: Oriented x3 - Psychiatric Exam Psychiatric exam: Normal Affect, Normal Mood - Skin Skin Exam: Dry, Intact, Normal Color Assessment and Plan - Assessment and Plan (Free Text) Assessment: Patient is a 57 year old male with PMH of dementia and DKA who was admitted to the ICU for treatment of DKA. Now on inpatient floor and hemodynamically stable. DKA has resolved. Plan: Diabetic Ketoacidosis, resolved: - Endocrinology, Dr. Hernandez consulted - C/w NS @ 75mls/hr - Insulin sliding scale - Lantus 14 units SC QHS - Accuchecks ACHS - Hypoglycemia protocol Schizophrenia and bipolar disorder, and aggressive Behavior: - Pschiatry, Dr. Danny consulted - C/w Abilify 5mg PO BID - C/w Depakote 500 mg PO QD Normacytic Anemia: - Hb at 9.5 today - No active bleeding at this time - Continue to monitor H & H History of Coronary Artery Disease: - C/w ASA 81mg PO QD - C/w Plavix 75mg PO QD - C/w Metoprolol 25mg PO QD History of hypertension - C/w Metoprolol 25mg PO QD History of hyperlipidemia: - C/w Crestor 2.5mg PO QD History of seizures - C/w Depakote 500 mg PO QD Acute Renal Insufficiency, resolved: -Bladder US (12/27): no hydronephrosis. b/l echogenic kidneys compatible with medical renal disease. no echogenic shadowing renal stones noted. no bladder calculi, no intrinsic bladder pathology. Abnormal UA: - Urine culture: negative - Discontinue Rocephin Hyperkalemia, resolved: - Likely 2/2 DKA - Hold Lisinopril Prophylaxis/diet: - Heparin 5000 units subq8H - Carbohydrate consistent diet Disposition: Pending palliative care and psychiatry recommendations. Palliative care to meet with patient's to discuss goals of care. Case discussed with Dr. Quentin Patrick PGY-1 <Lia Saavedra - Last Filed: 01/08/18 09:41> Objective - Vital Signs/Intake and Output Vital Signs (last 24 hours): Temp Pulse Resp BP Pulse Ox 98.2 F 77 20 103/61 99 01/08/18 08:00 01/08/18 08:00 01/08/18 08:00 01/08/18 08:00 01/08/18 08:00 Intake and Output: 01/08/18 01/08/18 06:59 18:59 Output Total 300 Balance -300 - Medications Medications: Current Medications Amlodipine Besylate (Norvasc) 5 mg PO DAILY [facility] Aripiprazole (Abilify) 5 mg PO BID [facility] Last Admin: 01/07/18 17:54 Dose: 5 mg Aspirin (Ecotrin) 81 mg PO DAILY [facility] Last Admin: 01/07/18 10:32 Dose: 81 mg Clopidogrel Bisulfate (Plavix) 75 mg PO DAILY [facility] Last Admin: 01/07/18 10:32 Dose: 75 mg Clotrimazole (Lotrimin 1%) 1 gm TOP BID [facility] Last Admin: 01/07/18 17:55 Dose: 1 applic Divalproex Sodium (Depakote Dr) 500 mg PO BID [facility] Last Admin: 01/07/18 17:54 Dose: 500 mg Insulin Aspart (Novolog) 0 unit SC ACHS [facility] Last Admin: 01/08/18 08:30 Dose: Not Given Insulin Aspart (Novolog) 8 unit SC AC [facility] Last Admin: 01/08/18 08:29 Dose: 8 units Insulin Glargine (Lantus) 20 unit SC HS [facility] Last Admin: 01/07/18 21:55 Dose: 20 units Metoprolol Succinate (Toprol Xl) 25 mg PO DAILY [facility] Last Admin: 01/07/18 10:32 Dose: 25 mg Pregabalin (Lyrica) 75 mg PO TID [facility] Last Admin: 01/07/18 17:53 Dose: 75 mg Rosuvastatin Calcium (Crestor) 2.5 mg PO [facility] Last Admin: 01/07/18 21:55 Dose: 2.5 mg Saccharomyces Boulardii (Florastor) 250 mg PO BID [facility] Last Admin: 01/07/18 17:53 Dose: 250 mg Trazodone HCl (Desyrel) 50 mg PO [facility] Last Admin: 01/07/18 21:55 Dose: 50 mg - Labs Labs: 01/08/18 07:29 01/08/18 07:29 Attending/Attestation - Attestation I have personally seen and examined this patient.: Yes I have fully participated in the care of the patient.: Yes I have reviewed all pertinent clinical information, including history, physical exam and plan: Yes Notes (Text): Assessment and the plan discussed with the resident Patient is confused,noncompliant with meds at home . follow family meeting I agree with the documentation of the resident
[2018-01-01] MEDS: Clotrimazole 1% Cream(30 gm) TOP SCH (17:34)
[2018-01-01] MEDS: (Lantus) Insulin Glargine, Recombinant SC SCH (21:31)
[2018-01-01] MEDS: Rosuvastatin Calcium 2.5 mg Tab PO SCH (21:31)
--- NOTE | 2018-01-02 01:25 | PN ---
DATE: 01/01/2018 LOCATION: Room 359. SUBJECTIVE: This is a 57-year-old male with recent uncontrolled type 2 insulin requiring diabetes, now being followed closely for metabolic management. His glycemic levels are fluctuating but much improved at this time, and the glucose values overnight have ranged from 122 to 195 mg/dL. His chemistry showed a BUN of 25, sodium 137, potassium 4.5, chloride 104, CO2 of 27, glucose 123, and creatinine 1.3. So at this time, we will continue the same basal and bolus insulin regimen to allow for dose equilibration and keep him on the NovoLog, given as 6 units subcu t.i.d. before meals as ordered. We will continue the Lantus, given as basal insulin at 14 units subcu at bedtime daily as given. We will titrate increment as indicated to optimize metabolic control. We will obtain serial chemistries and supplement accordingly as needed. We will follow. Brook Hernandez MD
[2018-01-02] MEDS: (Novolog) Insulin Aspart, Recombinant 100 u/ml 10 ml vial SC SCH ×7 (07:57→21:37)
--- NOTE | 2018-01-02 09:12 | CP.PCM.PN ---
Subjective - Date & Time of Evaluation Date of Evaluation: 01/02/18 Time of Evaluation: 09:11 - Subjective Subjective: Jaxson Patrick Medicine progress note for Dr. Ocasio Patient seen and examined at bedside. No acute events overnight. Patient has no complaints at this time. He denies fevers, chills, shortness of breath, chest pain, abdominal pain, nausea, vomiting, or urinary symptoms. Objective - Vital Signs/Intake and Output Vital Signs (last 24 hours): Temp Pulse Resp BP Pulse Ox 98.2 F 77 20 156/79 H 98 01/02/18 07:30 01/02/18 07:30 01/02/18 07:30 01/02/18 07:30 01/02/18 07:30 Intake and Output: 01/02/18 01/02/18 06:59 18:59 Intake Total 900 Output Total 600 Balance 300 - Medications Medications: Current Medications Aripiprazole (Abilify) 5 mg PO BID [facility] Last Admin: 01/01/18 17:33 Dose: 5 mg Aspirin (Ecotrin) 81 mg PO DAILY [facility] Last Admin: 01/01/18 09:47 Dose: 81 mg Clopidogrel Bisulfate (Plavix) 75 mg PO DAILY [facility] Last Admin: 01/01/18 09:47 Dose: 75 mg Clotrimazole (Lotrimin 1%) 1 gm TOP BID [facility] Last Admin: 01/01/18 17:34 Dose: 1 applic Divalproex Sodium (Depakote Er) 500 mg PO DAILY [facility] Last Admin: 01/01/18 09:46 Dose: 500 mg Heparin Sodium (Porcine) (Heparin) 5,000 units SC Q8 [facility] Last Admin: 01/02/18 05:16 Dose: 5,000 units Sodium Chloride (Sodium Chloride 0.45%) 1,000 mls @ 75 mls/hr IV .[id number] [facility] Last Admin: 01/01/18 19:54 Dose: 75 mls/hr Insulin Aspart (Novolog) 6 unit SC AC [facility] Last Admin: 01/02/18 07:57 Dose: 6 u Insulin Aspart (Novolog) 0 unit SC ACHS [facility] Last Admin: 01/02/18 07:58 Dose: Not Given Insulin Glargine (Lantus) 14 unit SC HS [facility] Last Admin: 01/01/18 21:31 Dose: 14 units Metoprolol Succinate (Toprol Xl) 25 mg PO DAILY [facility] Last Admin: 01/01/18 09:47 Dose: 25 mg Pregabalin (Lyrica) 75 mg PO TID [facility] Last Admin: 01/01/18 17:33 Dose: 75 mg Risperidone (Risperdal Tab) 0.5 mg PO [facility] Last Admin: 01/01/18 21:31 Dose: 0.5 mg Rosuvastatin Calcium (Crestor) 2.5 mg PO [facility] Last Admin: 01/01/18 21:31 Dose: 2.5 mg Saccharomyces Boulardii (Florastor) 250 mg PO BID [facility] Last Admin: 01/01/18 17:33 Dose: 250 mg - Labs Labs: 01/01/18 06:47 01/01/18 06:47 - Additional Findings Additional findings: - Constitutional Appears: Non-toxic, No Acute Distress - Head Exam Head Exam: ATRAUMATIC, NORMAL INSPECTION - Eye Exam Eye Exam: EOMI, Normal appearance - ENT Exam ENT Exam: Mucous Membranes Moist - Neck Exam Neck Exam: Normal Inspection. absent: Tenderness - Respiratory Exam Respiratory Exam: Clear to Ausculation Bilateral. absent: Rales, Rhonchi, Wheezes - Cardiovascular Exam Cardiovascular Exam: REGULAR RHYTHM, +S1, +S2 - GI/Abdominal Exam GI & Abdominal Exam: Soft, Normal Bowel Sounds. absent: Tenderness - Extremities Exam Extremities Exam: Normal Capillary Refill, Normal Inspection. absent: Pedal Edema, Tenderness - Neurological Exam Neurological Exam: Alert, Awake. absent: Oriented x3 - Psychiatric Exam Psychiatric exam: Normal Affect, Normal Mood - Skin Skin Exam: Dry, Intact, Normal Color Assessment and Plan - Assessment and Plan (Free Text) Assessment: Patient is a 57 year old male with PMH of dementia and DKA who was admitted to the ICU for treatment of DKA. Now on inpatient floor and hemodynamically stable. DKA has resolved. Plan: Diabetic Ketoacidosis, resolved: - Endocrinology, Dr. Hernandez consulted - C/w NS @ 75mls/hr - Insulin sliding scale - Lantus 14 units SC QHS - Accuchecks ACHS - Hypoglycemia protocol Schizophrenia and bipolar disorder, and aggressive Behavior: - Pschiatry, Dr. Delgado consulted - C/w Abilify 5mg PO BID - C/w Depakote 500 mg PO QD Normacytic Anemia: - Hb at 9.5 today - No active bleeding at this time - Continue to monitor H & H History of Coronary Artery Disease: - C/w ASA 81mg PO QD - C/w Plavix 75mg PO QD - C/w Metoprolol 25mg PO QD History of hypertension - C/w Metoprolol 25mg PO QD History of hyperlipidemia: - C/w Crestor 2.5mg PO QD History of seizures - C/w Depakote 500 mg PO QD Acute Renal Insufficiency, resolved: -Bladder US (12/27): no hydronephrosis. b/l echogenic kidneys compatible with medical renal disease. no echogenic shadowing renal stones noted. no bladder calculi, no intrinsic bladder pathology. Abnormal UA: - Urine culture: negative - Discontinue Rocephin Hyperkalemia, resolved: - Likely 2/2 DKA - Hold Lisinopril Prophylaxis/diet: - Heparin 5000 units SC Q8H - Carbohydrate consistent diet Disposition: Pending palliative care and psychiatry recommendations. Palliative care to meet with patient's to discuss goals of care. Case discussed with Dr. Amarjit Patrick PGY-1
[2018-01-02] MEDS: Metoprolol Succinate 25 mg XL Tab PO SCH (09:43)
[2018-01-02] MEDS: Saccharomyces Boulardi 250 mg Cap PO SCH ×2 (09:43→17:20)
[2018-01-02] MEDS: Clotrimazole 1% Cream(30 gm) TOP SCH ×2 (09:44→18:00)
[2018-01-02] MEDS: Divalproex 500 mg ER Tab PO SCH (09:44)
[2018-01-02] MEDS: Sodium Chloride 0.45% 1,000 ML IV SCH ×3 (09:45→21:44)
[2018-01-02] MEDS: Rosuvastatin Calcium 2.5 mg Tab PO SCH (21:38)
[2018-01-02] MEDS: (Lantus) Insulin Glargine, Recombinant SC SCH (21:40)
--- NOTE | 2018-01-02 23:26 | PN ---
DATE: 01/01/2018 ENDOCRINOLOGY FOLLOWUP LOCATION: Room 359. SUBJECTIVE: This is a 57-year-old male with recent uncontrolled type 2 insulin-requiring diabetes, now being followed closely for metabolic management. His hyperglycemic levels are fluctuating, not much improved at this time, and the glucose values are ranging from 94 to 150 and 275 mg/dL. LABORATORY DATA: His latest chemistry showed a BUN of 25, sodium 137, potassium 4.5, chloride 104, CO2 of 27, glucose 123, and creatinine 1.3. PLAN: So at this time, we will continue the same basal and bolus insulin regimen to allow for dose equilibration and keep the Novolog at 6 units subcutaneously t.i.d. before meals as ordered. We will continue the Lantus given as 14 units subcutaneously at bedtime daily as ordered. We will obtain serial chemistries and supplement accordingly as needed. We will follow. Brook Hernandez MD
[2018-01-03] MEDS: Sodium Chloride 0.45% 1,000 ML IV SCH ×2 (06:40→10:04)
[2018-01-03 07:38] LABS: BASO # 0.1 K/uL (0.0-0.2); BASO % 0.9 % (0.0-2.0); EOS # 0.3 K/uL (0.0-0.7); EOS % 3.8 % (0.0-4.0); HEMOGLOBIN 8.4 g/dL (12.0-18.0); LYMPH # 2.3 K/uL (1.0-4.3); LYMPH % 26.4 % (20.0-40.0); MEAN CELL VOLUME 94.7 fL (80.0-94.0); MEAN CORPUSCULAR HEMOGLOBIN 32.2 pg (27.0-31.0); MONO # 0.6 K/uL (0.0-0.8); MONO % 7.2 % (0.0-10.0); NEUT # 5.3 K/uL (1.8-7.0); NEUT % 61.7 % (50.0-75.0); RBC 2.6 Mil/uL (4.40-5.90); RED CELL DISTRIBUTION WIDTH 13.4 % (11.5-14.5); WHITE BLOOD COUNT 8.6 K/uL (4.8-10.8)
--- NOTE | 2018-01-03 07:51 | CP.PCM.PN ---
<Jaxson Patrick - Last Filed: 01/03/18 17:40> Subjective - Date & Time of Evaluation Date of Evaluation: 01/03/18 Time of Evaluation: 07:48 - Subjective Subjective: Jaxson Patrick Medicine progress note for Dr. Wong Patient seen and examined at bedside. Patient's blood glucose level was 462 this morning and 10 units of Novolog given. Patient's POC glucose in the afternoon is 258. Patient has no complaints at this time. He denies fevers, chills, shortness of breath, chest pain, abdominal pain, nausea, vomiting, or urinary symptoms. Objective - Vital Signs/Intake and Output Vital Signs (last 24 hours): Temp Pulse Resp BP Pulse Ox 98.9 F 75 20 155/72 H 97 01/03/18 00:19 01/03/18 00:19 01/03/18 00:19 01/03/18 00:19 01/03/18 00:19 Intake and Output: 01/03/18 01/03/18 06:59 18:59 Intake Total 600 Balance 600 - Medications Medications: Current Medications Aripiprazole (Abilify) 5 mg PO BID [facility] Last Admin: 01/02/18 17:20 Dose: 5 mg Aspirin (Ecotrin) 81 mg PO DAILY [facility] Last Admin: 01/02/18 09:43 Dose: 81 mg Clopidogrel Bisulfate (Plavix) 75 mg PO DAILY [facility] Last Admin: 01/02/18 09:43 Dose: 75 mg Clotrimazole (Lotrimin 1%) 1 gm TOP BID [facility] Last Admin: 01/02/18 18:00 Dose: 1 applic Divalproex Sodium (Depakote Er) 500 mg PO DAILY [facility] Last Admin: 01/02/18 09:44 Dose: 500 mg Heparin Sodium (Porcine) (Heparin) 5,000 units SC Q8 [facility] Last Admin: 01/03/18 06:55 Dose: 5,000 units Sodium Chloride (Sodium Chloride 0.45%) 1,000 mls @ 75 mls/hr IV .[id number] [facility] Last Admin: 01/02/18 21:44 Dose: 75 mls/hr Insulin Aspart (Novolog) 6 unit SC AC [facility] Last Admin: 01/02/18 16:23 Dose: 6 u Insulin Aspart (Novolog) 0 unit SC ACHS [facility] Last Admin: 01/02/18 21:37 Dose: Not Given Insulin Glargine (Lantus) 14 unit SC HS [facility] Last Admin: 01/02/18 21:40 Dose: 14 units Metoprolol Succinate (Toprol Xl) 25 mg PO DAILY [facility] Last Admin: 01/02/18 09:43 Dose: 25 mg Pregabalin (Lyrica) 75 mg PO TID [facility] Last Admin: 01/02/18 17:20 Dose: 75 mg Risperidone (Risperdal Tab) 0.5 mg PO [facility] Last Admin: 01/02/18 21:37 Dose: 0.5 mg Rosuvastatin Calcium (Crestor) 2.5 mg PO HS [facility] Last Admin: 01/02/18 21:38 Dose: 2.5 mg Saccharomyces Boulardii (Florastor) 250 mg PO BID [facility] Last Admin: 01/02/18 17:20 Dose: 250 mg - Labs Labs: 01/03/18 07:21 01/01/18 06:47 - Additional Findings Additional findings: - Constitutional Appears: Non-toxic, No Acute Distress - Head Exam Head Exam: ATRAUMATIC, NORMAL INSPECTION - Eye Exam Eye Exam: EOMI, Normal appearance - ENT Exam ENT Exam: Mucous Membranes Moist - Neck Exam Neck Exam: Normal Inspection. absent: Tenderness - Respiratory Exam Respiratory Exam: Clear to Ausculation Bilateral. absent: Rales, Rhonchi, Wh eezes - Cardiovascular Exam Cardiovascular Exam: REGULAR RHYTHM, +S1, +S2 - GI/Abdominal Exam GI & Abdominal Exam: Soft, Normal Bowel Sounds. absent: Tenderness - Extremities Exam Extremities Exam: Normal Capillary Refill, Normal Inspection. absent: Pedal Edema, Tenderness - Neurological Exam Neurological Exam: Alert, Awake. absent: Oriented x3 - Psychiatric Exam Psychiatric exam: Normal Affect, Normal Mood - Skin Skin Exam: Dry, Intact, Normal Color Assessment and Plan - Assessment and Plan (Free Text) Assessment: Patient is a 57 year old male with PMH of dementia and DKA who was admitted to [facility] ICU for treatment of DKA. Now on inpatient floor and hemodynamically stable. DKA has resolved. Plan: Diabetic Ketoacidosis, resolved: - Fluctuating glucose levels ranging from 92-423 - Make sure patient is not drinking fruit juices or any other sugary food/drinks - Endocrinology, Dr. Hernandez consulted - Discontinue NS @ 75mls/hr- due to patient's elevated BP and patient is well hydrated - C/w Insulin sliding scale - C/w Lantus 14 units SC QHS - Accuchecks ACHS - Hypoglycemia protocol - Follow up Potassium levels in am Hypertension: - C/w Metoprolol 25mg PO QD - Discontinue NS @ 75mls/hr - Consider switching to Metoprolol Succinate 50mg PO QD if BP is still elevated after discontinuing IV fluids - Continue to hold home medication Lisinopril due to elevated potassium levels Schizophrenia and bipolar disorder, and aggressive Behavior: - Pschiatry, Dr. Delgado consulted - C/w Abilify 5mg PO BID - C/w Depakote 500 mg PO QD - Start Trazodone 50mg PO HS Normacytic Anemia: - No active bleeding at this time - Continue to monitor H & H History of Coronary Artery Disease: - C/w ASA 81mg PO QD - C/w Plavix 75mg PO QD - C/w Metoprolol 25mg PO QD History of hyperlipidemia: - C/w Crestor 2.5mg PO QD History of seizures - C/w Depakote 500 mg PO QD Acute Renal Insufficiency, resolved: -Bladder US (12/27): no hydronephrosis. b/l echogenic kidneys compatible with medical renal disease. no echogenic shadowing renal stones noted. no bladder calculi, no intrinsic bladder pathology. Prophylaxis/diet: - Heparin 5000 units SC Q8H - Carbohydrate consistent diet Disposition: Pending palliative care and psychiatry recommendations. Palliative care to meet with patient's to discuss goals of care. Case discussed with Dr. Marvin Patrick, PGY-1 <Raymond Wong - Last Filed: 01/06/18 19:21> Objective - Vital Signs/Intake and Output Vital Signs (last 24 hours): Temp Pulse Resp BP Pulse Ox 98.7 F 75 20 154/78 H 100 01/06/18 15:00 01/06/18 15:00 01/06/18 15:00 01/06/18 15:00 01/06/18 15:00 Intake and Output: 01/06/18 01/07/18 18:59 05:59 Intake Total 500 Balance 500 - Medications Medications: Current Medications Aripiprazole (Abilify) 5 mg PO BID [facility] Last Admin: 01/06/18 17:42 Dose: 5 mg Aspirin (Ecotrin) 81 mg PO DAILY [facility] Last Admin: 01/06/18 10:10 Dose: 81 mg Clopidogrel Bisulfate (Plavix) 75 mg PO DAILY [facility] Last Admin: 01/06/18 10:10 Dose: 75 mg Clotrimazole (Lotrimin 1%) 1 gm TOP BID [facility] Last Admin: 01/06/18 17:42 Dose: 1 applic Divalproex Sodium (Depakote Dr) 500 mg PO BID [facility] Last Admin: 01/06/18 17:42 Dose: 500 mg Heparin Sodium (Porcine) (Heparin) 5,000 units SC Q8 [facility] Last Admin: 01/06/18 14:36 Dose: 5,000 units Insulin Aspart (Novolog) 0 unit SC ACHS [facility] Last Admin: 01/06/18 16:42 Dose: 2 units Insulin Aspart (Novolog) 3 unit SC AC [facility] Last Admin: 01/06/18 17:43 Dose: 3 units Insulin Glargine (Lantus) 8 unit SC [facility] Last Admin: 01/05/18 21:30 Dose: 8 units Lisinopril (Zestril) 5 mg PO DAILY [facility] Last Admin: 01/06/18 10:10 Dose: 5 mg Metoprolol Succinate (Toprol Xl) 25 mg PO DAILY [facility] Last Admin: 01/06/18 10:10 Dose: 25 mg Pregabalin (Lyrica) 75 mg PO TID [facility] Last Admin: 01/06/18 17:42 Dose: 75 mg Rosuvastatin Calcium (Crestor) 2.5 mg PO [facility] Last Admin: 01/05/18 21:07 Dose: 2.5 mg Saccharomyces Boulardii (Florastor) 250 mg PO BID [facility] Last Admin: 01/06/18 17:53 Dose: 250 mg Trazodone HCl (Desyrel) 50 mg PO [facility] Last Admin: 01/05/18 21:08 Dose: 50 mg - Labs Labs: 01/06/18 07:00 01/06/18 07:00 Attending/Attestation - Attestation I have personally seen and examined this patient.: Yes I have fully participated in the care of the patient.: Yes I have reviewed all pertinent clinical information, including history, physical exam and plan: Yes Notes (Text): 01/06/18 19:20 This is a late entry. Care of this patient was gone over in detail with resident Dr. Patrick. Raymond Wong D.O.
[2018-01-03] MEDS: (Novolog) Insulin Aspart, Recombinant 100 u/ml 10 ml vial SC SCH ×7 (07:54→21:20)
[2018-01-03 08:25] LABS: ALB/GLOB RATIO 1.2 (1.0-2.1); ALBUMIN 2.8 g/dL (3.5-5.0); ALT/SGPT 40 U/L (21-72); AST/SGOT 41 U/L (17-59); BLOOD UREA NITROGEN 32 mg/dL (9-20); CALCIUM 8.6 mg/dl (8.6-10.4); GFR NON-AFRICAN AMERICAN 57
[2018-01-03] MEDS: Metoprolol Succinate 25 mg XL Tab PO SCH (09:33)
[2018-01-03] MEDS: Saccharomyces Boulardi 250 mg Cap PO SCH ×2 (09:33→17:31)
[2018-01-03] MEDS: Clotrimazole 1% Cream(30 gm) TOP SCH ×2 (09:34→17:31)
[2018-01-03] MEDS: Divalproex 500 mg ER Tab PO SCH (09:34)
--- NOTE | 2018-01-03 13:39 | PCM.PSYCH ---
Initial Psychiatric Evaluation - Initial Psychiatric Evaluation Type of Admission: Voluntary Chief Complaint (in patient's own words): "OK" History of Present Illness and Precipitating Events: Consulted for psychiatric clearance. He is a 57 year old male who is and retired. He lives with his with home visiting nursing services. He was hospitalized for DKA. Pt has a history of schizophrenia and has been becoming easily agitated. He is pleasant and cooperative currently to questions and medications. He had a history of heavy alcohol use in the past but denies tobacco or other substance use. Currently, he denies hearing any voices or suicidal thoughts. He is content with the medications he is on. He is a poor historian and is contacted who reported that the pt had had admissions in the past Past Medical History: T2DM with multiple DKA episodes, CAD, NSTEMI, Systolic CHF, HTN, JORGE L, Anemia of chronic disease Psychiatric History: Schizophrenia, Dementia, h/o alcohol use disorder with complications Current Medications: Active Medications Generic Name Dose Route Start Last Admin Trade Name Freq PRN Reason Stop Dose Admin Aripiprazole 5 mg 12/28/17 10:00 01/03/18 09:34 Abilify PO 5 mg BID ALIE Administration Aspirin 81 mg 12/28/17 10:00 01/03/18 09:33 Ecotrin PO 81 mg DAILY ALIE Administration Clopidogrel Bisulfate 75 mg 12/28/17 10:00 01/03/18 09:33 Plavix PO 75 mg DAILY ALIE Administration Clotrimazole 1 gm 12/27/17 18:30 01/03/18 09:34 Lotrimin 1% TOP 1 applic BID ALIE Administration Divalproex Sodium 500 mg 12/28/17 10:00 01/03/18 09:34 Depakote Er PO 500 mg DAILY ALIE Administration Heparin Sodium (Porcine) 5,000 units 12/27/17 22:00 01/03/18 13:22 Heparin SC 5,000 units Q8 ALIE Administration Sodium Chloride 1,000 mls @ 75 mls/hr 12/31/17 12:00 01/03/18 10:04 Sodium Chloride 0.45% IV 75 mls/hr .[id number] ALIE Administration Insulin Aspart 6 unit 12/28/17 16:30 01/03/18 11:43 Novolog SC 6 u AC ALIE Administration Insulin Aspart 0 unit 12/28/17 16:30 01/03/18 11:42 Novolog SC Not Given ACHS ALIE Insulin Glargine 14 unit 12/28/17 22:00 01/02/18 21:40 Lantus SC 14 units HS ALIE Administration Metoprolol Succinate 25 mg 12/28/17 10:00 01/03/18 09:33 Toprol Xl PO 25 mg DAILY ALIE Administration Pregabalin 75 mg 12/28/17 10:00 01/03/18 13:22 Lyrica PO 75 mg TID ALIE Administration Risperidone 0.5 mg 12/27/17 22:00 01/02/18 21:37 Risperdal Tab PO 0.5 mg HS ALIE Administration Rosuvastatin Calcium 2.5 mg 12/27/17 22:00 01/02/18 21:38 Crestor PO 2.5 mg HS ALIE Administration Saccharomyces Boulardii 250 mg 12/28/17 10:00 01/03/18 09:33 Florastor PO 250 mg BID ALIE Administration Past Psychiatric History - Past Psychiatric History Previous Treatment History: Inpatient Pertinent Medical Hx (Current Medical&Sleep Prob, Allergies): Allergies Allergy/AdvReac Type Severity Reaction Status Date / Time No Known Allergies Allergy Verified 12/27/17 14:06 Aspirin [Adult Low Dose Aspirin EC] 81 mg PO DAILY #30 tablet. 03/29/17 Pravastatin Sodium [Pravachol] 20 mg PO HS tab 06/29/17 Clopidogrel [Plavix] 75 mg PO DAILY 09/12/17 Divalproex [Depakote ER] 500 mg PO DAILY 09/12/17 Pregabalin [Lyrica] 75 mg PO TID 10/06/17 SITagliptin [Januvia] 50 mg PO DAILY 10/06/17 ARIPiprazole [Abilify] 5 mg PO BID #60 tab 10/11/17 Metoprolol Succinate XL [Toprol XL] 25 mg PO DAILY #30 tab 10/11/17 risperiDONE [RisperDAL Tab] 0.5 mg PO HS #30 tab 10/11/17 Blood Sugar Diagnostic [Test Strips] 1 each MC TID #90 strip 11/11/17 Insulin Detemir [Levemir] 17 unit SC Q12 30 Days vial 11/11/17 Lisinopril [Zestril] 10 mg PO DAILY #30 tab 11/11/17 Review of Systems - Psychiatric Psychiatric: Abnormal Sleep Pattern, Difficulty Concentrating. absent: Depression, Hallucinations, Homicidal Ideation, Paranoia, Suicidal Ideation Mental Status Examination - Personal Presentation Personal Presentation: Looks older than stated age - Affect Affect: Blunted (odd) - Motor Activity Motor Activity: Calm - Reliability in Providing Information Reliability in Providing Information: Poor, due to cognitve impairment - Speech Speech: Disorganized - Mood Mood: Anxious - Formal Thought Process Formal Thought Process: Loosening of associations - Cognitive Functions Orientation: Person, Place, Time Sensorium: Alert Attention/Concentration: Easily distracted Abstract Thinking: [place] Estimate of Intelligence: Below average Judgement: Intact, as evidence by: Insight regarding need for hospitalization Memory: Recent impaired, as evidence by: Inability to recall events of the day, Remote impaired as evidenced by: Inability to recall sig life events - Risk Risk: Diminished functioning - Strength & Assets Inventory Strength & Assets Inventory: Family support, Cooperative - Limitations Limitations: Other DSM 5 DX - DSM 5 DSM 5 Diagnosis: Chronic schizophrenia r/o dementia onset Alcohol use d/o - in remission - Recommended/Plan of Treatment Treatment Recommendations and Plan of Treatment: Continue Abilify for psychosis Continue depakote for aggressive bhv (now in control) Discontinue risperdal, due to DM and he is already on Abilify Trazodone for insomnia Support Family contact psych will sign off
[2018-01-03] MEDS: Divalproex 500 mg DR Tab PO SCH (18:00)
--- NOTE | 2018-01-03 20:59 | PN ---
DATE: 01/03/2018 ENDOCRINOLOGY FOLLOWUP LOCATION: In room 359. SUBJECTIVE: This is a 57-year-old male with known history of type 2 insulin-requiring diabetes, now being followed closely for metabolic management. His glycemic levels are fluctuating but improved, and apparently, the nursing staff held the bedtime insulin with supervening hyperglycemic accelerations early this morning and glucose levels were 423 mg/dL. The chemistry showed a BUN of 32, sodium 132, potassium 5.6, chloride 102, CO2 of 25, glucose 462, and creatinine 1.3. So at this time, we will continue the IV hydration as given and modify to 75 mL/hour of normal saline as ordered. We will increase the Lantus to 16 units subcutaneously at bedtime daily to start tonight. We will continue the low-dose correction scale using Novolog insulin as ordered. We will also continue the same Novolog insulin given preprandially with Novolog given as 6 units subcutaneously t.i.d. before meals as ordered. We will obtain serial chemistries and supplement accordingly as needed. We will follow. Brook Hernandez MD
[2018-01-03] MEDS: (Lantus) Insulin Glargine, Recombinant SC SCH (21:21)
[2018-01-03] MEDS: Rosuvastatin Calcium 2.5 mg Tab PO SCH (21:25)
[2018-01-04 06:51] LABS: BASO # 0.1 K/uL (0.0-0.2); BASO % 0.8 % (0.0-2.0); EOS # 0.4 K/uL (0.0-0.7); EOS % 4.3 % (0.0-4.0); HEMOGLOBIN 8.2 g/dL (12.0-18.0); LYMPH # 2.6 K/uL (1.0-4.3); LYMPH % 29.2 % (20.0-40.0); MEAN CELL VOLUME 93.5 fL (80.0-94.0); MEAN CORPUSCULAR HEMOGLOBIN 32.1 pg (27.0-31.0); MEAN CORPUSCULAR HGB CONC 34.3 g/dL (33.0-37.0); MEAN PLATELET VOLUME 7.5 fL (7.2-11.7); MONO # 0.8 K/uL (0.0-0.8); MONO % 9.6 % (0.0-10.0); NEUT # 4.9 K/uL (1.8-7.0); NEUT % 56.1 % (50.0-75.0); RBC 2.57 Mil/uL (4.40-5.90); WHITE BLOOD COUNT 8.8 K/uL (4.8-10.8)
[2018-01-04] MEDS: (Novolog) Insulin Aspart, Recombinant 100 u/ml 10 ml vial SC SCH ×7 (07:51→22:25)
[2018-01-04 07:55] LABS: ALB/GLOB RATIO 1.1 (1.0-2.1); ALT/SGPT 34 U/L (21-72); AST/SGOT 40 U/L (17-59); BLOOD UREA NITROGEN 31 mg/dL (9-20); CALCIUM 8.9 mg/dl (8.6-10.4); GFR NON-AFRICAN AMERICAN > 60
--- NOTE | 2018-01-04 09:46 | CP.PCM.PN ---
<Brit Beckford Y - Last Filed: 01/04/18 15:11> Subjective - Date & Time of Evaluation Date of Evaluation: 01/04/18 Time of Evaluation: 07:45 - Subjective Subjective: PGY-1 Medicine Progress Note for Dr. Gricel Wong Patient was seen and examined today sitting up at bedside comfortably eating breakfast. Nurse reports no overnight events. Patient denies any acute complaints. Denies any pain, headache, nausea, vomiting. Is able to urinate and have BM with no issues. Objective - Vital Signs/Intake and Output Vital Signs (last 24 hours): Temp Pulse Resp BP Pulse Ox 98.5 F 90 20 132/74 100 01/04/18 08:43 01/04/18 08:43 01/04/18 08:43 01/04/18 08:43 01/04/18 08:43 Intake and Output: 01/04/18 01/04/18 06:59 18:59 Intake Total 600 Output Total 300 Balance 600 -300 - Medications Medications: Current Medications Aripiprazole (Abilify) 5 mg PO BID [facility] Last Admin: 01/03/18 17:31 Dose: 5 mg Aspirin (Ecotrin) 81 mg PO DAILY [facility] Last Admin: 01/03/18 09:33 Dose: 81 mg Clopidogrel Bisulfate (Plavix) 75 mg PO DAILY [facility] Last Admin: 01/03/18 09:33 Dose: 75 mg Clotrimazole (Lotrimin 1%) 1 gm TOP BID [facility] Last Admin: 01/03/18 17:31 Dose: 1 applic Divalproex Sodium (Depakote Dr) 500 mg PO BID [facility] Last Admin: 01/03/18 18:00 Dose: 500 mg Heparin Sodium (Porcine) (Heparin) 5,000 units SC Q8 [facility] Last Admin: 01/04/18 06:41 Dose: 5,000 units Insulin Aspart (Novolog) 6 unit SC AC [facility] Last Admin: 01/04/18 07:54 Dose: 6 u Insulin Aspart (Novolog) 0 unit SC ACHS [facility] Last Admin: 01/04/18 07:51 Dose: Not Given Insulin Glargine (Lantus) 16 unit SC HS [facility] Last Admin: 01/03/18 21:21 Dose: 16 units Metoprolol Succinate (Toprol Xl) 25 mg PO DAILY [facility] Last Admin: 01/03/18 09:33 Dose: 25 mg Pregabalin (Lyrica) 75 mg PO TID [facility] Last Admin: 01/03/18 17:31 Dose: 75 mg Rosuvastatin Calcium (Crestor) 2.5 mg PO [facility] Last Admin: 01/03/18 21:25 Dose: 2.5 mg Saccharomyces Boulardii (Florastor) 250 mg PO BID [facility] Last Admin: 01/03/18 17:31 Dose: 250 mg Trazodone HCl (Desyrel) 50 mg PO [facility] Last Admin: 01/03/18 21:25 Dose: 50 mg - Labs Labs: 01/04/18 06:45 01/04/18 06:45 - Constitutional Appears: Non-toxic, No Acute Distress - Head Exam Head Exam: ATRAUMATIC, NORMOCEPHALIC - Eye Exam Eye Exam: EOMI, Normal appearance - ENT Exam ENT Exam: Mucous Membranes Moist Additional comments: poor dentition, no dentures - Respiratory Exam Respiratory Exam: Clear to Ausculation Bilateral, NORMAL BREATHING PATTERN. absent: Rales, Rhonchi, Wheezes - Cardiovascular Exam Cardiovascular Exam: REGULAR RHYTHM, +S1, +S2 - GI/Abdominal Exam GI & Abdominal Exam: Soft, Normal Bowel Sounds. absent: Tenderness - Extremities Exam Extremities Exam: Normal Capillary Refill, Normal Inspection. absent: Pedal Edema, Tenderness Additional comments: peripheral pulses palpable bilaterally (radial, PT) - Neurological Exam Neurological Exam: Alert, Awake. absent: Oriented x3 - Psychiatric Exam Psychiatric exam: Normal Affect, Normal Mood - Skin Skin Exam: Dry, Intact, Normal Color Assessment and Plan - Assessment and Plan (Free Text) Assessment: Patient is a 57 year old male with PMH of dementia and DKA who was admitted to the ICU for treatment of DKA. Now on inpatient floor and hemodynamically stable. DKA has resolved. Plan: Diabetic Ketoacidosis, resolved: - Fluctuating glucose levels ranging from 92-423 - Make sure patient is not drinking fruit juices or any other sugary food/drinks - Hgb A1c (12/27): 12.3 - Endocrinology, Dr. Hernandez consulted - recs appreciated - Discontinue NS @ 75mls/hr - due to patient's elevated BP and patient is well hydrated - C/w Insulin sliding scale - low - increased to Lantus 16 from 14 units SC QHS - started Novolog 6u SC AC - Accuchecks ACHS - Hypoglycemia protocol - Monitor Potassium with AM labs Hypertension: - C/w Metoprolol 25mg PO QD - Restarting home Lisinopril at half strength. 5mg PO QD. Monitor K levels - Discontinue NS @ 75mls/hr Schizophrenia and bipolar disorder, and aggressive Behavior: - Pschiatry, Dr. Delgado consulted - C/w Abilify 5mg PO BID - C/w Depakote 500 mg PO BID - C/w Trazodone 50mg PO HS - Discontinue Risperdal since patient is on Abilify Normocytic Anemia: - No active bleeding at this time - Continue to monitor H & H Coronary Artery Disease: - C/w ASA 81mg PO QD - C/w Plavix 75mg PO QD - C/w Metoprolol 25mg PO QD Hyperlipidemia: - C/w Crestor 2.5mg PO QD History of seizures: - C/w Depakote 500 mg PO BID Neuropathic Pain: - likely secondary diabetic pain - C/w Lyrica 75 mg PO TID Acute Renal Insufficiency, resolved: -Bladder US (12/27): no hydronephrosis. b/l echogenic kidneys compatible with medical renal disease. no echogenic shadowing renal stones noted. no bladder calculi, no intrinsic bladder pathology. Prophylaxis/diet: - Heparin 5000 units SC Q8H - Florastor 250 mg PO BID - Carbohydrate consistent diet Dispo: Palliative Care was unable to meet with patient's as she didn't arrive at multiple appointments to assess goals of care. Recommends fdc care: [facility] [place] Case discussed with Dr. Marvin Beckford, PGY-1 <Raymond Wong - Last Filed: 01/06/18 19:20> Objective - Vital Signs/Intake and Output Vital Signs (last 24 hours): Temp Pulse Resp BP Pulse Ox 98.7 F 75 20 154/78 H 100 01/06/18 15:00 01/06/18 15:00 01/06/18 15:00 01/06/18 15:00 01/06/18 15:00 Intake and Output: 01/06/18 01/07/18 18:59 05:59 Intake Total 500 Balance 500 - Medications Medications: Current Medications Aripiprazole (Abilify) 5 mg PO BID [facility] Last Admin: 01/06/18 17:42 Dose: 5 mg Aspirin (Ecotrin) 81 mg PO DAILY [facility] Last Admin: 01/06/18 10:10 Dose: 81 mg Clopidogrel Bisulfate (Plavix) 75 mg PO DAILY [facility] Last Admin: 01/06/18 10:10 Dose: 75 mg Clotrimazole (Lotrimin 1%) 1 gm TOP BID [facility] Last Admin: 01/06/18 17:42 Dose: 1 applic Divalproex Sodium (Depakote Dr) 500 mg PO BID [facility] Last Admin: 01/06/18 17:42 Dose: 500 mg Heparin Sodium (Porcine) (Heparin) 5,000 units SC Q8 [facility] Last Admin: 01/06/18 14:36 Dose: 5,000 units Insulin Aspart (Novolog) 0 unit SC ACHS [facility] Last Admin: 01/06/18 16:42 Dose: 2 units Insulin Aspart (Novolog) 3 unit SC AC [facility] Last Admin: 01/06/18 17:43 Dose: 3 units Insulin Glargine (Lantus) 8 unit SC [facility] Last Admin: 01/05/18 21:30 Dose: 8 units Lisinopril (Zestril) 5 mg PO DAILY [facility] Last Admin: 01/06/18 10:10 Dose: 5 mg Metoprolol Succinate (Toprol Xl) 25 mg PO DAILY [facility] Last Admin: 01/06/18 10:10 Dose: 25 mg Pregabalin (Lyrica) 75 mg PO TID [facility] Last Admin: 01/06/18 17:42 Dose: 75 mg Rosuvastatin Calcium (Crestor) 2.5 mg PO [facility] Last Admin: 01/05/18 21:07 Dose: 2.5 mg Saccharomyces Boulardii (Florastor) 250 mg PO BID [facility] Last Admin: 01/06/18 17:53 Dose: 250 mg Trazodone HCl (Desyrel) 50 mg PO [facility] Last Admin: 01/05/18 21:08 Dose: 50 mg - Labs Labs: 01/06/18 07:00 01/06/18 07:00 Attending/Attestation - Attestation I have personally seen and examined this patient.: Yes I have fully participated in the care of the patient.: Yes I have reviewed all pertinent clinical information, including history, physical exam and plan: Yes Notes (Text): 01/06/18 19:20 This is a late entry. Care of this patient was gone over in detail with resident Dr. Beckford. Raymond Wong D.O.
[2018-01-04] MEDS: Divalproex 500 mg DR Tab PO SCH ×2 (09:56→17:34)
[2018-01-04] MEDS: Metoprolol Succinate 25 mg XL Tab PO SCH (09:57)
[2018-01-04] MEDS: Saccharomyces Boulardi 250 mg Cap PO SCH ×2 (09:57→17:34)
[2018-01-04] MEDS: Clotrimazole 1% Cream(30 gm) TOP SCH ×2 (09:58→17:34)
[2018-01-04] MEDS: Rosuvastatin Calcium 2.5 mg Tab PO SCH (22:19)
[2018-01-04] MEDS: (Lantus) Insulin Glargine, Recombinant SC SCH (22:20)
--- NOTE | 2018-01-05 00:09 | PN ---
DATE: 01/04/2018 ENDOCRINOLOGY FOLLOWUP NOTE LOCATION: Room 359. SUBJECTIVE: This is a 57-year-old male with recent uncontrolled type 2 insulin requiring diabetes, presenting with diabetic ketoacidosis and dehydration and has since then improved clinically and metabolically as noted thereof. His glucose levels overnight have ranged from 107 to 151 and 181 mg/dL, it was 496 at bedtime last night. The chemistries today showed a BUN of 31, sodium 135, potassium 5.1, chloride 103, CO2 of 25, glucose 165, and creatinine 1.1. So at this time, we will continue the same basal and bolus insulin regimen to allow for dose equilibration and keep him on the Lantus given as 16 units subcu at bedtime daily as ordered and modified last night. We will continue the NovoLog, given as 6 units subcu t.i.d. before meals as ordered. We will continue the low dose correction scale using Novolog insulin as given. We will follow and advised accordingly. Brook Hernandez MD
[2018-01-05 06:50] LABS: BASO % 0.5 % (0.0-2.0); EOS # 0.3 K/uL (0.0-0.7); EOS % 3.6 % (0.0-4.0); HEMOGLOBIN 8.7 g/dL (12.0-18.0); LYMPH # 3.1 K/uL (1.0-4.3); LYMPH % 36.8 % (20.0-40.0); MEAN CELL VOLUME 92.4 fL (80.0-94.0); MEAN CORPUSCULAR HEMOGLOBIN 33.2 pg (27.0-31.0); MEAN PLATELET VOLUME 7.2 fL (7.2-11.7); MONO # 0.8 K/uL (0.0-0.8); MONO % 9.4 % (0.0-10.0); NEUT # 4.2 K/uL (1.8-7.0); NEUT % 49.7 % (50.0-75.0); NRBC % 0.1 % (0.0-2.0); RBC 2.61 Mil/uL (4.40-5.90); RED CELL DISTRIBUTION WIDTH 13.6 % (11.5-14.5); WHITE BLOOD COUNT 8.4 K/uL (4.8-10.8)
[2018-01-05 07:08] LABS: ALB/GLOB RATIO 1.2 (1.0-2.1); ALBUMIN 3.2 g/dL (3.5-5.0); ALT/SGPT 39 U/L (21-72); AST/SGOT 52 U/L (17-59); BLOOD UREA NITROGEN 29 mg/dL (9-20); CALCIUM 9.2 mg/dl (8.6-10.4); GFR NON-AFRICAN AMERICAN > 60
--- NOTE | 2018-01-05 07:15 | CP.PCM.PN ---
<Jaxson Patrick - Last Filed: 01/05/18 23:20> Subjective - Date & Time of Evaluation Date of Evaluation: 01/05/18 Time of Evaluation: 07:09 - Subjective Subjective: PGY-1 Medicine Progress Note for Dr. Gricel Wong Patient was seen and examined today. Nurse reports no overnight events. He denies any pain, fevers, chills, headache, nausea, vomiting, shortness of breath, chest pain, or abdominal pain. Objective - Vital Signs/Intake and Output Vital Signs (last 24 hours): Temp Pulse Resp BP Pulse Ox 98.4 F 82 20 134/74 98 01/04/18 23:45 01/04/18 23:45 01/04/18 23:45 01/04/18 23:45 01/04/18 23:45 - Medications Medications: Current Medications Aripiprazole (Abilify) 5 mg PO BID [facility] Last Admin: 01/04/18 17:34 Dose: 5 mg Aspirin (Ecotrin) 81 mg PO DAILY [facility] Last Admin: 01/04/18 09:57 Dose: 81 mg Clopidogrel Bisulfate (Plavix) 75 mg PO DAILY [facility] Last Admin: 01/04/18 09:56 Dose: 75 mg Clotrimazole (Lotrimin 1%) 1 gm TOP BID [facility] Last Admin: 01/04/18 17:34 Dose: 1 applic Divalproex Sodium (Depakote Dr) 500 mg PO BID [facility] Last Admin: 01/04/18 17:34 Dose: 500 mg Heparin Sodium (Porcine) (Heparin) 5,000 units SC Q8 [facility] Last Admin: 01/05/18 05:31 Dose: 5,000 units Insulin Aspart (Novolog) 6 unit SC AC [facility] Last Admin: 01/04/18 17:36 Dose: 6 u Insulin Aspart (Novolog) 0 unit SC ACHS [facility] Last Admin: 01/04/18 22:25 Dose: Not Given Insulin Glargine (Lantus) 16 unit SC HS [facility] Last Admin: 01/04/18 22:20 Dose: 16 units Lisinopril (Zestril) 5 mg PO DAILY [facility] Metoprolol Succinate (Toprol Xl) 25 mg PO DAILY [facility] Last Admin: 01/04/18 09:57 Dose: 25 mg Pregabalin (Lyrica) 75 mg PO TID [facility] Last Admin: 01/04/18 17:34 Dose: 75 mg Rosuvastatin Calcium (Crestor) 2.5 mg PO HS [facility] Last Admin: 01/04/18 22:19 Dose: 2.5 mg Saccharomyces Boulardii (Florastor) 250 mg PO BID [facility] Last Admin: 01/04/18 17:34 Dose: 250 mg Trazodone HCl (Desyrel) 50 mg PO [facility] Last Admin: 01/04/18 22:19 Dose: 50 mg - Labs Labs: 01/05/18 06:30 01/05/18 06:30 - Additional Findings Additional findings: - Constitutional Appears: Non-toxic, No Acute Distress - Head Exam Head Exam: ATRAUMATIC, NORMOCEPHALIC - Eye Exam Eye Exam: EOMI, Normal appearance - ENT Exam ENT Exam: Mucous Membranes Moist Additional comments: poor dentition, no dentures - Respiratory Exam Respiratory Exam: Clear to Ausculation Bilateral, NORMAL BREATHING PATTERN. absent: Rales, Rhonchi, Wheezes - Cardiovascular Exam Cardiovascular Exam: REGULAR RHYTHM, +S1, +S2 - GI/Abdominal Exam GI & Abdominal Exam: Soft, Normal Bowel Sounds. absent: Tenderness - Extremities Exam Extremities Exam: Normal Capillary Refill, Normal Inspection. absent: Pedal Edema, Tenderness Additional comments: - Neurological Exam Neurological Exam: Alert, Awake. absent: Oriented x3 - Psychiatric Exam Psychiatric exam: Normal Affect, Normal Mood - Skin Skin Exam: Dry, Intact, Normal Color Assessment and Plan - Assessment and Plan (Free Text) Assessment: Patient is a 57 year old male with PMH of dementia and DKA who was admitted to the ICU for treatment of DKA. Now on inpatient floor and hemodynamically stable. DKA has resolved. Plan: Diabetic Ketoacidosis, resolved: - Fluctuating glucose levels ranging from 92-423 - Make sure patient is not drinking fruit juices or any other sugary food/drinks - Hgb A1c (12/27): 12.3 - Endocrinology, Dr. Hernandez consulted - recs appreciated - Discontinue NS @ 75mls/hr - due to patient's elevated BP and patient is well hydrated - Insulin sliding scale - low - Decreased dose of Lantus to 14 units SC QHS - Blood glucose of 39 this morning - Novolog 6u SC AC - Accuchecks ACHS - Hypoglycemia protocol - Monitor Potassium with AM labs Hypertension: - Metoprolol 25mg PO QD - Lisinopril 5mg PO QD- Monitor K+ levels Schizophrenia and bipolar disorder, and aggressive Behavior: - PscDr. Danny fall consulted - Abilify 5mg PO BID - Depakote 500 mg PO BID - Trazodone 50mg PO HS - Discontinue Risperdal since patient is on Abilify Normocytic Anemia: - No active bleeding at this time - Continue to monitor H & H Coronary Artery Disease: - ASA 81mg PO QD - Plavix 75mg PO QD - Metoprolol 25mg PO QD Hyperlipidemia: - Crestor 2.5mg PO QD History of seizures: - Depakote 500 mg PO BID Neuropathic Pain: - Likely secondary diabetic pain - Lyrica 75 mg PO TID Acute Renal Insufficiency, resolved: -Bladder US (12/27): no hydronephrosis. b/l echogenic kidneys compatible with medical renal disease. no echogenic shadowing renal stones noted. no bladder calculi, no intrinsic bladder pathology. Prophylaxis/diet: - Heparin 5000 units SC Q8H - Florastor 250 mg PO BID - Carbohydrate consistent diet Dispo: Palliative Care was unable to meet with patient's as she didn't arrive at multiple appointments to assess goals of care. Recommends halfway care: [facility] Case discussed with Dr. Marvin Patrick, PGY-1 <Raymond Wong - Last Filed: 01/06/18 19:20> Objective - Vital Signs/Intake and Output Vital Signs (last 24 hours): Temp Pulse Resp BP Pulse Ox 98.7 F 75 20 154/78 H 100 01/06/18 15:00 01/06/18 15:00 01/06/18 15:00 01/06/18 15:00 01/06/18 15:00 Intake and Output: 01/06/18 01/07/18 18:59 05:59 Intake Total 500 Balance 500 - Medications Medications: Current Medications Aripiprazole (Abilify) 5 mg PO BID [facility] Last Admin: 01/06/18 17:42 Dose: 5 mg Aspirin (Ecotrin) 81 mg PO DAILY [facility] Last Admin: 01/06/18 10:10 Dose: 81 mg Clopidogrel Bisulfate (Plavix) 75 mg PO DAILY [facility] Last Admin: 01/06/18 10:10 Dose: 75 mg Clotrimazole (Lotrimin 1%) 1 gm TOP BID [facility] Last Admin: 01/06/18 17:42 Dose: 1 applic Divalproex Sodium (Depakote Dr) 500 mg PO BID [facility] Last Admin: 01/06/18 17:42 Dose: 500 mg Heparin Sodium (Porcine) (Heparin) 5,000 units SC Q8 [facility] Last Admin: 01/06/18 14:36 Dose: 5,000 units Insulin Aspart (Novolog) 0 unit SC ACHS [facility] Last Admin: 01/06/18 16:42 Dose: 2 units Insulin Aspart (Novolog) 3 unit SC AC [facility] Last Admin: 01/06/18 17:43 Dose: 3 units Insulin Glargine (Lantus) 8 unit SC HS [facility] Last Admin: 01/05/18 21:30 Dose: 8 units Lisinopril (Zestril) 5 mg PO DAILY [facility] Last Admin: 01/06/18 10:10 Dose: 5 mg Metoprolol Succinate (Toprol Xl) 25 mg PO DAILY [facility] Last Admin: 01/06/18 10:10 Dose: 25 mg Pregabalin (Lyrica) 75 mg PO TID [facility] Last Admin: 01/06/18 17:42 Dose: 75 mg Rosuvastatin Calcium (Crestor) 2.5 mg PO [facility] Last Admin: 01/05/18 21:07 Dose: 2.5 mg Saccharomyces Boulardii (Florastor) 250 mg PO BID [facility] Last Admin: 01/06/18 17:53 Dose: 250 mg Trazodone HCl (Desyrel) 50 mg PO [facility] Last Admin: 01/05/18 21:08 Dose: 50 mg - Labs Labs: 01/06/18 07:00 01/06/18 07:00 Attending/Attestation - Attestation I have personally seen and examined this patient.: Yes I have fully participated in the care of the patient.: Yes I have reviewed all pertinent clinical information, including history, physical exam and plan: Yes Notes (Text): 01/06/18 19:18 This is a late entry. Care of this patient was gone over in detail with resident Dr. Patrick. Raymond Wong D.O.
[2018-01-05] MEDS: (Novolog) Insulin Aspart, Recombinant 100 u/ml 10 ml vial SC SCH ×6 (08:07→21:29)
[2018-01-05] MEDS: Divalproex 500 mg DR Tab PO SCH ×2 (09:18→17:39)
[2018-01-05] MEDS: Metoprolol Succinate 25 mg XL Tab PO SCH (09:18)
[2018-01-05] MEDS: Saccharomyces Boulardi 250 mg Cap PO SCH ×2 (09:18→17:39)
[2018-01-05] MEDS: Clotrimazole 1% Cream(30 gm) TOP SCH ×2 (09:19→17:39)
[2018-01-05] MEDS: Rosuvastatin Calcium 2.5 mg Tab PO SCH (21:07)
[2018-01-05] MEDS: (Lantus) Insulin Glargine, Recombinant SC SCH (21:30)
--- NOTE | 2018-01-05 21:34 | PN ---
DATE: 01/05/2018 ENDOCRINOLOGY FOLLOWUP NOTE LOCATION: Room 359. This is a 57-year-old male with recent uncontrolled type 2 insulin-requiring diabetes, now being followed closely for metabolic management. His glycemic levels are fluctuating, but improved. The glucose values overnight, however, dropped to 56 and 72 mg/dL. His chemistry showed a BUN of 29, sodium 140, potassium 4.6, chloride 107, CO2 of 30, glucose 39, and creatinine 1.2. So at this time, we will modify once again his basal and bolus insulin regimen because of the variability of his oral intake as noted and lower the Novolog to 3 units subcu t.i.d. before meals to start today as ordered. We will obtain serial chemistries and supplement accordingly as needed. We will also continue the low-dose correction scale using Novolog insulin as given to obviate hypoglycemia, and detailed orders have been given. We will also lower the basal insulin given overnight with Lantus to be given as much lower dose of 8 units subcu at bedtime daily as given. We will titrate incrementally as indicated to optimize metabolic control. We will obtain serial chemistries and supplement accordingly as needed. We will follow. Brook Hernandez MD
[2018-01-05] MEDS ORDERED: (Lantus) Insulin Glargine, Recombinant SC SCH (22:00)
[2018-01-06 07:56] LABS: BASO # 0.1 K/uL (0.0-0.2); BASO % 0.7 % (0.0-2.0); EOS # 0.2 K/uL (0.0-0.7); HEMOGLOBIN 8.1 g/dL (12.0-18.0); LYMPH # 2.9 K/uL (1.0-4.3); LYMPH % 37.7 % (20.0-40.0); MEAN CELL VOLUME 94.2 fL (80.0-94.0); MEAN CORPUSCULAR HEMOGLOBIN 32.7 pg (27.0-31.0); MEAN CORPUSCULAR HGB CONC 34.7 g/dL (33.0-37.0); MEAN PLATELET VOLUME 7.6 fL (7.2-11.7); MONO # 0.8 K/uL (0.0-0.8); MONO % 9.9 % (0.0-10.0); NEUT # 3.8 K/uL (1.8-7.0); NEUT % 48.7 % (50.0-75.0); RBC 2.48 Mil/uL (4.40-5.90); RED CELL DISTRIBUTION WIDTH 13.6 % (11.5-14.5); WHITE BLOOD COUNT 7.8 K/uL (4.8-10.8)
[2018-01-06] MEDS: (Novolog) Insulin Aspart, Recombinant 100 u/ml 10 ml vial SC SCH ×7 (08:10→21:45)
[2018-01-06 08:23] LABS: ALB/GLOB RATIO 1.1 (1.0-2.1); ALBUMIN 2.8 g/dL (3.5-5.0); ALT/SGPT 32 U/L (21-72); AST/SGOT 31 U/L (17-59); BLOOD UREA NITROGEN 29 mg/dL (9-20); CALCIUM 8.7 mg/dl (8.6-10.4); GFR NON-AFRICAN AMERICAN > 60
[2018-01-06] MEDS: Saccharomyces Boulardi 250 mg Cap PO SCH ×2 (10:09→17:53)
[2018-01-06] MEDS: Metoprolol Succinate 25 mg XL Tab PO SCH (10:10)
[2018-01-06] MEDS: Divalproex 500 mg DR Tab PO SCH ×2 (10:10→17:42)
[2018-01-06] MEDS: Clotrimazole 1% Cream(30 gm) TOP SCH ×2 (10:11→17:42)
--- NOTE | 2018-01-06 10:20 | CP.PCM.PN ---
<Jaxson Patrick - Last Filed: 01/06/18 16:37> Subjective - Date & Time of Evaluation Date of Evaluation: 01/06/18 Time of Evaluation: 10:18 - Subjective Subjective: PGY-1 Medicine Progress Note for Dr. Gricel Wong Patient was seen and examined today. Nurse reports no overnight events. Patient is sitting on the chair comfortably. He denies any pain, fevers, chills, headache, nausea, vomiting, shortness of breath, chest pain, or abdominal pain. Objective - Vital Signs/Intake and Output Vital Signs (last 24 hours): Temp Pulse Resp BP Pulse Ox 98.7 F 75 20 126/68 97 01/06/18 07:00 01/06/18 10:07 01/06/18 07:00 01/06/18 10:07 01/06/18 07:00 Intake and Output: 01/06/18 01/06/18 06:59 18:59 Intake Total 350 Balance 350 - Medications Medications: Current Medications Aripiprazole (Abilify) 5 mg PO BID [facility] Last Admin: 01/06/18 10:10 Dose: 5 mg Aspirin (Ecotrin) 81 mg PO DAILY [facility] Last Admin: 01/06/18 10:10 Dose: 81 mg Clopidogrel Bisulfate (Plavix) 75 mg PO DAILY [facility] Last Admin: 01/06/18 10:10 Dose: 75 mg Clotrimazole (Lotrimin 1%) 1 gm TOP BID [facility] Last Admin: 01/06/18 10:11 Dose: 1 applic Divalproex Sodium (Depakote Dr) 500 mg PO BID [facility] Last Admin: 01/06/18 10:10 Dose: 500 mg Heparin Sodium (Porcine) (Heparin) 5,000 units SC Q8 [facility] Last Admin: 01/06/18 05:18 Dose: 5,000 units Insulin Aspart (Novolog) 0 unit SC ACHS [facility] Last Admin: 01/06/18 08:10 Dose: Not Given Insulin Aspart (Novolog) 3 unit SC AC [facility] Last Admin: 01/06/18 08:37 Dose: 3 units Insulin Glargine (Lantus) 8 unit SC HS [facility] Last Admin: 01/05/18 21:30 Dose: 8 units Lisinopril (Zestril) 5 mg PO DAILY [facility] Last Admin: 01/06/18 10:10 Dose: 5 mg Metoprolol Succinate (Toprol Xl) 25 mg PO DAILY [facility] Last Admin: 01/06/18 10:10 Dose: 25 mg Pregabalin (Lyrica) 75 mg PO TID [facility] Last Admin: 01/06/18 10:10 Dose: 75 mg Rosuvastatin Calcium (Crestor) 2.5 mg PO [facility] Last Admin: 01/05/18 21:07 Dose: 2.5 mg Saccharomyces Boulardii (Florastor) 250 mg PO BID [facility] Last Admin: 01/06/18 10:09 Dose: 250 mg Trazodone HCl (Desyrel) 50 mg PO [facility] Last Admin: 01/05/18 21:08 Dose: 50 mg - Labs Labs: 01/06/18 07:00 01/06/18 07:00 - Additional Findings Additional findings: - Constitutional Appears: Non-toxic, No Acute Distress - Head Exam Head Exam: ATRAUMATIC, NORMOCEPHALIC - Eye Exam Eye Exam: EOMI, Normal appearance - ENT Exam ENT Exam: Mucous Membranes Moist Additional comments: poor dentition, no dentures - Respiratory Exam Respiratory Exam: Clear to Ausculation Bilateral, NORMAL BREATHING PATTERN. absent: Rales, Rhonchi, Wheezes - Cardiovascular Exam Cardiovascular Exam: REGULAR RHYTHM, +S1, +S2 - GI/Abdominal Exam GI & Abdominal Exam: Soft, Normal Bowel Sounds. absent: Tenderness - Extremities Exam Extremities Exam: Normal Capillary Refill, Normal Inspection. absent: Pedal Edema, Tenderness Additional comments: - Neurological Exam Neurological Exam: Alert, Awake. absent: Oriented x3 - Psychiatric Exam Psychiatric exam: Normal Affect, Normal Mood - Skin Skin Exam: Dry, Intact, Normal Color Assessment and Plan - Assessment and Plan (Free Text) Assessment: Patient is a 57 year old male with PMH of dementia and DKA who was admitted to [facility] ICU for treatment of DKA. Now on inpatient floor and hemodynamically stable. DKA has resolved. Patient is awaiting acceptance at [facility]. Plan: Diabetic Ketoacidosis, resolved: - Fluctuating glucose levels ranging from 92-423 - Make sure patient is not drinking fruit juices or any other sugary food/drinks - Hgb A1c (12/27): 12.3 - Endocrinology, Dr. Hernandez consulted - Discontinue NS @ 75mls/hr - due to patient's elevated BP and patient is well hydrated - Insulin sliding scale - low - Decreased dose of Lantus to 8 units SC QHS - Novolog 6u SC AC - Accuchecks ACHS - Hypoglycemia protocol - Monitor Potassium with AM labs Hypertension: - Metoprolol 25mg PO QD - Lisinopril 5mg PO QD Hyperkalemia: - K+: 5.6 today - Kayexalate 15mg PO once - Patient is on Lisinopril 5mg PO QD- will hold if potassium level continue to rise - Will continue to monitor Schizophrenia and bipolar disorder, and aggressive Behavior: - Pschiatry, Dr. Delgado consulted - Abilify 5mg PO BID - Depakote 500 mg PO BID - Trazodone 50mg PO HS - Discontinue Risperdal since patient is on Abilify Normocytic Anemia: - No active bleeding at this time - Continue to monitor H & H Coronary Artery Disease: - ASA 81mg PO QD - Plavix 75mg PO QD - Metoprolol 25mg PO QD Hyperlipidemia: - Crestor 2.5mg PO QD History of seizures: - Depakote 500 mg PO BID Neuropathic Pain: - Likely secondary diabetic pain - Lyrica 75 mg PO TID Acute Renal Insufficiency, resolved: -Bladder US (12/27): no hydronephrosis. b/l echogenic kidneys compatible with medical renal disease. no echogenic shadowing renal stones noted. no bladder calculi, no intrinsic bladder pathology. Prophylaxis/diet: - Heparin 5000 units SC Q8H - Florastor 250 mg PO BID - Carbohydrate consistent diet Dispo: Awaiting acceptance to [facility]: [facility] Case discussed with Dr. Marvin Partick, PGY-1 <Raymond Wong - Last Filed: 01/06/18 19:18> Objective - Vital Signs/Intake and Output Vital Signs (last 24 hours): Temp Pulse Resp BP Pulse Ox 98.7 F 75 20 154/78 H 100 01/06/18 15:00 01/06/18 15:00 01/06/18 15:00 01/06/18 15:00 01/06/18 15:00 Intake and Output: 01/06/18 01/07/18 18:59 05:59 Intake Total 500 Balance 500 - Medications Medications: Current Medications Aripiprazole (Abilify) 5 mg PO BID [facility] Last Admin: 01/06/18 17:42 Dose: 5 mg Aspirin (Ecotrin) 81 mg PO DAILY [facility] Last Admin: 01/06/18 10:10 Dose: 81 mg Clopidogrel Bisulfate (Plavix) 75 mg PO DAILY [facility] Last Admin: 01/06/18 10:10 Dose: 75 mg Clotrimazole (Lotrimin 1%) 1 gm TOP BID [facility] Last Admin: 01/06/18 17:42 Dose: 1 applic Divalproex Sodium (Depakote Dr) 500 mg PO BID [facility] Last Admin: 01/06/18 17:42 Dose: 500 mg Heparin Sodium (Porcine) (Heparin) 5,000 units SC Q8 [facility] Last Admin: 01/06/18 14:36 Dose: 5,000 units Insulin Aspart (Novolog) 0 unit SC ACHS [facility] Last Admin: 01/06/18 16:42 Dose: 2 units Insulin Aspart (Novolog) 3 unit SC AC [facility] Last Admin: 01/06/18 17:43 Dose: 3 units Insulin Glargine (Lantus) 8 unit SC [facility] Last Admin: 01/05/18 21:30 Dose: 8 units Lisinopril (Zestril) 5 mg PO DAILY [facility] Last Admin: 01/06/18 10:10 Dose: 5 mg Metoprolol Succinate (Toprol Xl) 25 mg PO DAILY [facility] Last Admin: 01/06/18 10:10 Dose: 25 mg Pregabalin (Lyrica) 75 mg PO TID [facility] Last Admin: 01/06/18 17:42 Dose: 75 mg Rosuvastatin Calcium (Crestor) 2.5 mg PO [facility] Last Admin: 01/05/18 21:07 Dose: 2.5 mg Saccharomyces Boulardii (Florastor) 250 mg PO BID [facility] Last Admin: 01/06/18 17:53 Dose: 250 mg Trazodone HCl (Desyrel) 50 mg PO [facility] Last Admin: 01/05/18 21:08 Dose: 50 mg - Labs Labs: 01/06/18 07:00 01/06/18 07:00 Attending/Attestation - Attestation I have personally seen and examined this patient.: Yes I have fully participated in the care of the patient.: Yes I have reviewed all pertinent clinical information, including history, physical exam and plan: Yes Notes (Text): 01/06/18 19:14 Patient was seen and examined at 12:00 PM Care of this patient was gone over in detail with resident Dr. Patrick. Raymond Wong D.O.
[2018-01-06] MEDS ORDERED: Sod Polystyrene Sulf 15 gm/60 ml Susp PO ONE ×2 (16:36→18:00)
--- NOTE | 2018-01-06 18:36 | PN ---
DATE: 01/06/2018 ENDOCRINOLOGY FOLLOWUP NOTE LOCATION: Room 359. SUBJECTIVE: This is a 57-year-old male with recent uncontrolled type 2 insulin-requiring diabetes, now being followed closely for metabolic management. His glycemic levels are fluctuating once again overnight with glucose levels ranging from 205 to 280 mg/dL. His latest chemistries show a BUN of 29, sodium 136, potassium 5.6, chloride 104, CO2 25, glucose 255, and creatinine 1.2. So at this time, we will modify once again his basal and bolus insulin regimen and lower the NovoLog to 3 units t.i.d. before meals as ordered. We will also increase the basal insulin with Lantus to be given as 8 units subcutaneous at bedtime daily to start tonight. We will obtain serial chemistries and supplement accordingly as needed, We will follow. Brook Hernandez MD
[2018-01-06] MEDS: Rosuvastatin Calcium 2.5 mg Tab PO SCH (21:31)
[2018-01-06] MEDS: (Lantus) Insulin Glargine, Recombinant SC SCH (21:32)
--- NOTE | 2018-01-07 07:43 | CP.PCM.PN ---
<Jaxson Patrick - Last Filed: 01/07/18 18:05> Subjective - Date & Time of Evaluation Date of Evaluation: 01/07/18 Time of Evaluation: 07:43 - Subjective Subjective: PGY-1 Medicine Progress Note for Dr. Gricel Wong Patient was seen and examined today. Nurse reports no overnight events. He denies any pain, fevers, chills, headache, nausea, vomiting, shortness of breath, chest pain, or abdominal pain. Objective - Vital Signs/Intake and Output Vital Signs (last 24 hours): Temp Pulse Resp BP Pulse Ox 97.5 F L 73 20 148/80 98 01/07/18 00:00 01/07/18 00:00 01/07/18 00:00 01/07/18 00:00 01/07/18 00:00 Intake and Output: 01/07/18 01/07/18 06:59 18:59 Intake Total Balance - Medications Medications: Current Medications Aripiprazole (Abilify) 5 mg PO BID [facility] Last Admin: 01/06/18 17:42 Dose: 5 mg Aspirin (Ecotrin) 81 mg PO DAILY [facility] Last Admin: 01/06/18 10:10 Dose: 81 mg Clopidogrel Bisulfate (Plavix) 75 mg PO DAILY [facility] Last Admin: 01/06/18 10:10 Dose: 75 mg Clotrimazole (Lotrimin 1%) 1 gm TOP BID [facility] Last Admin: 01/06/18 17:42 Dose: 1 applic Divalproex Sodium (Depakote Dr) 500 mg PO BID [facility] Last Admin: 01/06/18 17:42 Dose: 500 mg Insulin Aspart (Novolog) 0 unit SC ACHS [facility] Last Admin: 01/06/18 21:45 Dose: Not Given Insulin Aspart (Novolog) 3 unit SC AC [facility] Last Admin: 01/06/18 17:43 Dose: 3 units Insulin Glargine (Lantus) 8 unit SC HS [facility] Last Admin: 01/06/18 21:32 Dose: 8 units Lisinopril (Zestril) 5 mg PO DAILY [facility] Last Admin: 01/06/18 10:10 Dose: 5 mg Metoprolol Succinate (Toprol Xl) 25 mg PO DAILY [facility] Last Admin: 01/06/18 10:10 Dose: 25 mg Pregabalin (Lyrica) 75 mg PO TID [facility] Last Admin: 01/06/18 17:42 Dose: 75 mg Rosuvastatin Calcium (Crestor) 2.5 mg PO [facility] Last Admin: 01/06/18 21:31 Dose: 2.5 mg Saccharomyces Boulardii (Florastor) 250 mg PO BID [facility] Last Admin: 01/06/18 17:53 Dose: 250 mg Trazodone HCl (Desyrel) 50 mg PO [facility] Last Admin: 01/06/18 21:31 Dose: 50 mg - Labs Labs: 01/06/18 07:00 01/06/18 07:00 - Additional Findings Additional findings: - Constitutional Appears: Non-toxic, No Acute Distress - Head Exam Head Exam: ATRAUMATIC, NORMOCEPHALIC - Eye Exam Eye Exam: EOMI, Normal appearance - ENT Exam ENT Exam: Mucous Membranes Moist Additional comments: poor dentition, no dentures - Respiratory Exam Respiratory Exam: Clear to Ausculation Bilateral, NORMAL BREATHING PATTERN. absent: Rales, Rhonchi, Wheezes - Cardiovascular Exam Cardiovascular Exam: REGULAR RHYTHM, +S1, +S2 - GI/Abdominal Exam GI & Abdominal Exam: Soft, Normal Bowel Sounds. absent: Tenderness - Extremities Exam Extremities Exam: Normal Capillary Refill, Normal Inspection. absent: Pedal Edema, Tenderness Additional comments: - Neurological Exam Neurological Exam: Alert, Awake. absent: Oriented x3 - Psychiatric Exam Psychiatric exam: Normal Affect, Normal Mood - Skin Skin Exam: Dry, Intact, Normal Color Assessment and Plan - Assessment and Plan (Free Text) Assessment: Patient is a 57 year old male with PMH of dementia and DKA who was admitted to the ICU for treatment of DKA. Now on inpatient floor and hemodynamically stable. DKA has resolved. Patient is awaiting acceptance at [facility]. Plan: Diabetic Ketoacidosis, resolved: - Fluctuating glucose levels ranging from 200-370 - Make sure patient is not drinking fruit juices or any other sugary food/drinks - Hgb A1c (12/27): 12.3 - Endocrinology, Dr. Hernnadez consulted - Insulin sliding scale - low - Lantus to 20 units SC QHS - Novolog 8 units SC AC - Accuchecks ACHS - Hypoglycemia protocol - Monitor Potassium with AM labs Hypertension: - Metoprolol 25mg PO QD - Norvasc 5mg PO QD - Hold Lisinopril 5mg PO QD - Will hold due to hyperkalemia. Not indicated to use ARB's due to risk of hyperkalemia Hyperkalemia: - K+: 5.8 today - Kayexalate 15mg PO once - Hold Lisinopril 5mg PO QD - EKG: NSR @ 72 bpm - Will continue to monitor Schizophrenia and bipolar disorder, and aggressive Behavior: - PscDr. Danny fall consulted - Abilify 5mg PO BID - Depakote 500 mg PO BID - Trazodone 50mg PO HS - Discontinue Risperdal since patient is on Abilify Normocytic Anemia: - No active bleeding at this time - Continue to monitor H & H Coronary Artery Disease: - ASA 81mg PO QD - Plavix 75mg PO QD - Metoprolol 25mg PO QD Hyperlipidemia: - Crestor 2.5mg PO QD History of seizures: - Depakote 500 mg PO BID Neuropathic Pain: - Likely secondary diabetic pain - Lyrica 75 mg PO TID Acute Renal Insufficiency, resolved: -Bladder US (12/27): no hydronephrosis. b/l echogenic kidneys compatible with medical renal disease. no echogenic shadowing renal stones noted. no bladder calculi, no intrinsic bladder pathology. Prophylaxis/diet: - Heparin 5000 units SC Q8H - Florastor 250 mg PO BID - Carbohydrate consistent diet Disposition: Awaiting acceptance to custodial care: [facility] Case discussed with Dr. Marvin Patrick, PGY-1 <Raymond Wong - Last Filed: 01/07/18 18:12> Objective - Vital Signs/Intake and Output Vital Signs (last 24 hours): Temp Pulse Resp BP Pulse Ox 98.5 F 72 20 128/67 100 01/07/18 15:00 01/07/18 15:00 01/07/18 15:00 01/07/18 15:00 01/07/18 15:00 Intake and Output: 01/07/18 01/07/18 06:59 18:59 Intake Total 620 Output Total 400 Balance 220 - Medications Medications: Current Medications Amlodipine Besylate (Norvasc) 5 mg PO DAILY [facility] Aripiprazole (Abilify) 5 mg PO BID [facility] Last Admin: 01/07/18 17:54 Dose: 5 mg Aspirin (Ecotrin) 81 mg PO DAILY [facility] Last Admin: 01/07/18 10:32 Dose: 81 mg Clopidogrel Bisulfate (Plavix) 75 mg PO DAILY [facility] Last Admin: 01/07/18 10:32 Dose: 75 mg Clotrimazole (Lotrimin 1%) 1 gm TOP BID [facility] Last Admin: 01/07/18 17:55 Dose: 1 applic Divalproex Sodium (Depakote Dr) 500 mg PO BID [facility] Last Admin: 01/07/18 17:54 Dose: 500 mg Insulin Aspart (Novolog) 0 unit SC ACHS [facility] Last Admin: 01/07/18 17:14 Dose: Not Given Insulin Aspart (Novolog) 8 unit SC AC [facility] Last Admin: 01/07/18 11:58 Dose: 8 units Insulin Glargine (Lantus) 20 unit SC HS [facility] Metoprolol Succinate (Toprol Xl) 25 mg PO DAILY [facility] Last Admin: 01/07/18 10:32 Dose: 25 mg Pregabalin (Lyrica) 75 mg PO TID [facility] Last Admin: 01/07/18 17:53 Dose: 75 mg Rosuvastatin Calcium (Crestor) 2.5 mg PO HS [facility] Last Admin: 01/06/18 21:31 Dose: 2.5 mg Saccharomyces Boulardii (Florastor) 250 mg PO BID [facility] Last Admin: 01/07/18 17:53 Dose: 250 mg Trazodone HCl (Desyrel) 50 mg PO HS [facility] Last Admin: 01/06/18 21:31 Dose: 50 mg - Labs Labs: 01/07/18 07:51 01/07/18 07:51 Attending/Attestation - Attestation I have personally seen and examined this patient.: Yes I have fully participated in the care of the patient.: Yes I have reviewed all pertinent clinical information, including history, physical exam and plan: Yes Notes (Text): 01/07/18 18:11 Patient was seen and examined at 10:15 AM 01/07/18. Care of this patient was gone over in detail with resident Dr. Patrick. Raymond Wong D.O.
[2018-01-07 08:07] LABS: BASO % 0.5 % (0.0-2.0); EOS # 0.3 K/uL (0.0-0.7); EOS % 3.1 % (0.0-4.0); HEMOGLOBIN 9.1 g/dL (12.0-18.0); LYMPH % 35.9 % (20.0-40.0); MEAN CELL VOLUME 93.9 fL (80.0-94.0); MEAN CORPUSCULAR HEMOGLOBIN 32.6 pg (27.0-31.0); MEAN CORPUSCULAR HGB CONC 34.7 g/dL (33.0-37.0); MEAN PLATELET VOLUME 7.7 fL (7.2-11.7); MONO # 0.8 K/uL (0.0-0.8); MONO % 9.4 % (0.0-10.0); NEUT # 4.2 K/uL (1.8-7.0); NEUT % 51.1 % (50.0-75.0); RBC 2.79 Mil/uL (4.40-5.90); RED CELL DISTRIBUTION WIDTH 13.5 % (11.5-14.5); WHITE BLOOD COUNT 8.3 K/uL (4.8-10.8)
[2018-01-07 08:23] LABS: ALB/GLOB RATIO 1.2 (1.0-2.1); ALBUMIN 3.3 g/dL (3.5-5.0); ALT/SGPT 33 U/L (21-72); AST/SGOT 28 U/L (17-59); BLOOD UREA NITROGEN 32 mg/dL (9-20); CALCIUM 8.9 mg/dl (8.6-10.4); GFR NON-AFRICAN AMERICAN 57
[2018-01-07] MEDS: (Novolog) Insulin Aspart, Recombinant 100 u/ml 10 ml vial SC SCH ×7 (08:33→21:48)
[2018-01-07] MEDS ORDERED: (Lantus) Insulin Glargine, Recombinant SC SCH ×2 (10:12→22:00)
[2018-01-07] MEDS ORDERED: (Novolog) Insulin Aspart, Recombinant 100 u/ml 10 ml vial SC SCH (10:12)
[2018-01-07] MEDS: Metoprolol Succinate 25 mg XL Tab PO SCH (10:32)
[2018-01-07] MEDS: Divalproex 500 mg DR Tab PO SCH ×2 (10:32→17:54)
[2018-01-07] MEDS: Saccharomyces Boulardi 250 mg Cap PO SCH ×2 (10:32→17:53)
[2018-01-07] MEDS ORDERED: Sod Polystyrene Sulf 15 gm/60 ml Susp PO STA (10:44)
[2018-01-07] MEDS: Clotrimazole 1% Cream(30 gm) TOP SCH ×2 (10:47→17:55)
[2018-01-07] MEDS: Rosuvastatin Calcium 2.5 mg Tab PO SCH (21:55)
[2018-01-08 07:44] LABS: BASO # 0.1 K/uL (0.0-0.2); BASO % 0.9 % (0.0-2.0); EOS # 0.2 K/uL (0.0-0.7); EOS % 3.1 % (0.0-4.0); HEMOGLOBIN 8.4 g/dL (12.0-18.0); LYMPH # 2.8 K/uL (1.0-4.3); LYMPH % 35.8 % (20.0-40.0); MEAN CELL VOLUME 92.8 fL (80.0-94.0); MEAN CORPUSCULAR HEMOGLOBIN 32.5 pg (27.0-31.0); MEAN PLATELET VOLUME 7.2 fL (7.2-11.7); MONO # 0.7 K/uL (0.0-0.8); MONO % 9.4 % (0.0-10.0); NEUT # 3.9 K/uL (1.8-7.0); NEUT % 50.8 % (50.0-75.0); RBC 2.57 Mil/uL (4.40-5.90); RED CELL DISTRIBUTION WIDTH 13.5 % (11.5-14.5); WHITE BLOOD COUNT 7.7 K/uL (4.8-10.8)
--- NOTE | 2018-01-08 07:58 | CP.PCM.PN ---
<Jaxson Patrick - Last Filed: 01/08/18 14:28> Subjective - Date & Time of Evaluation Date of Evaluation: 01/08/18 Time of Evaluation: 07:58 - Subjective Subjective: PGY-1 Medicine Progress Note for Dr. Pappas Patient was seen and examined today. Nurse reports no overnight events. Patient is comfortable and sitting eating breakfast. He denies any pain, fevers, chills, headache, nausea, vomiting, shortness of breath, chest pain, or abdominal pain. Objective - Vital Signs/Intake and Output Vital Signs (last 24 hours): Temp Pulse Resp BP Pulse Ox 98.1 F 77 20 145/70 99 01/08/18 00:00 01/08/18 00:00 01/08/18 00:00 01/08/18 00:00 01/08/18 00:00 Intake and Output: 01/08/18 01/08/18 06:59 18:59 Output Total 300 Balance -300 - Medications Medications: Current Medications Amlodipine Besylate (Norvasc) 5 mg PO DAILY [facility] Aripiprazole (Abilify) 5 mg PO BID [facility] Last Admin: 01/07/18 17:54 Dose: 5 mg Aspirin (Ecotrin) 81 mg PO DAILY [facility] Last Admin: 01/07/18 10:32 Dose: 81 mg Clopidogrel Bisulfate (Plavix) 75 mg PO DAILY [facility] Last Admin: 01/07/18 10:32 Dose: 75 mg Clotrimazole (Lotrimin 1%) 1 gm TOP BID [facility] Last Admin: 01/07/18 17:55 Dose: 1 applic Divalproex Sodium (Depakote Dr) 500 mg PO BID [facility] Last Admin: 01/07/18 17:54 Dose: 500 mg Insulin Aspart (Novolog) 0 unit SC ACHS [facility] Last Admin: 01/07/18 21:48 Dose: Not Given Insulin Aspart (Novolog) 8 unit SC AC [facility] Last Admin: 01/07/18 11:58 Dose: 8 units Insulin Glargine (Lantus) 20 unit SC HS [facility] Last Admin: 01/07/18 21:55 Dose: 20 units Metoprolol Succinate (Toprol Xl) 25 mg PO DAILY [facility] Last Admin: 01/07/18 10:32 Dose: 25 mg Pregabalin (Lyrica) 75 mg PO TID [facility] Last Admin: 01/07/18 17:53 Dose: 75 mg Rosuvastatin Calcium (Crestor) 2.5 mg PO HS [facility] Last Admin: 01/07/18 21:55 Dose: 2.5 mg Saccharomyces Boulardii (Florastor) 250 mg PO BID [facility] Last Admin: 01/07/18 17:53 Dose: 250 mg Trazodone HCl (Desyrel) 50 mg PO [facility] Last Admin: 01/07/18 21:55 Dose: 50 mg - Labs Labs: 01/08/18 07:29 01/07/18 07:51 - Additional Findings Additional findings: - Constitutional Appears: Non-toxic, No Acute Distress - Head Exam Head Exam: ATRAUMATIC, NORMOCEPHALIC - Eye Exam Eye Exam: EOMI, Normal appearance - ENT Exam ENT Exam: Mucous Membranes Moist Additional comments: poor dentition, no dentures - Respiratory Exam Respiratory Exam: Clear to Ausculation Bilateral, NORMAL BREATHING PATTERN. absent: Rales, Rhonchi, Wheezes - Cardiovascular Exam Cardiovascular Exam: REGULAR RHYTHM, +S1, +S2 - GI/Abdominal Exam GI & Abdominal Exam: Soft, Normal Bowel Sounds. absent: Tenderness - Extremities Exam Extremities Exam: Normal Capillary Refill, Normal Inspection. absent: Pedal Ayo ma, Tenderness Additional comments: - Neurological Exam Neurological Exam: Alert, Awake. absent: Oriented x3 - Psychiatric Exam Psychiatric exam: Normal Affect, Normal Mood - Skin Skin Exam: Dry, Intact, Normal Color Assessment and Plan - Assessment and Plan (Free Text) Assessment: Patient is a 57 year old male with PMH of dementia and DKA who was admitted to the ICU for treatment of DKA. Now on inpatient floor and hemodynamically stable. DKA has resolved. Patient is awaiting acceptance at [facility] Plan: Diabetic Ketoacidosis, resolved: - Insulin sliding scale - low - Lantus to 20 units SC QHS - Novolog 8 units SC AC - Accuchecks ACHS - Fluctuating glucose levels ranging from 200-370 - Will make sure patient is not drinking fruit juices or any other sugary food/drinks - Hgb A1c (12/27): 12.3 - Endocrinology, Dr. Hernandez consulted - Hypoglycemia protocol - Monitor Potassium with AM labs JORGE L: - BUN/Cr: 39/1.6, Cr was 1.3 yesterday - Will encourage patient to drink more fluids - Continue to monitor Hypertension: - Metoprolol 25mg PO QD - Norvasc 5mg PO QD - Hold Lisinopril - due to hyperkalemia. Not indicated to use ARB's due to risk of hyperkalemia Hyperkalemia: - K+: 4.7 today - Hold Lisinopril - EKG: NSR @ 72 bpm - Will continue to monitor Schizophrenia and bipolar disorder, and aggressive Behavior: - Psceufemia, Dr. Delgado consulted - Abilify 5mg PO BID - Depakote 500 mg PO BID - Trazodone 50mg PO HS Normocytic Anemia: - No active bleeding at this time - Continue to monitor H & H Coronary Artery Disease: - ASA 81mg PO QD - Plavix 75mg PO QD - Metoprolol 25mg PO QD Hyperlipidemia: - Crestor 2.5mg PO QD History of seizures: - Depakote 500 mg PO BID Neuropathic Pain: - Likely secondary diabetic pain - Lyrica 75 mg PO TID Acute Renal Insufficiency, resolved: - Bladder US (12/27): no hydronephrosis. b/l echogenic kidneys compatible with medical renal disease. no echogenic shadowing renal stones noted. no bladder calculi, no intrinsic bladder pathology. Prophylaxis/diet: - Heparin 5000 units SC Q8H - Florastor 250 mg PO BID - Carbohydrate consistent diet Disposition: Awaiting acceptance to terminal [facility] care: [facility] Case discussed with Dr. Mian Patrick, PGY-1 <Lashell Pappas V - Last Filed: 01/08/18 21:47> Objective - Vital Signs/Intake and Output Vital Signs (last 24 hours): Temp Pulse Resp BP Pulse Ox 98 F 66 20 114/69 100 01/08/18 15:00 01/08/18 15:00 01/08/18 15:00 01/08/18 15:00 01/08/18 15:00 Intake and Output: 01/08/18 01/09/18 18:59 06:59 Intake Total 500 Balance 500 - Medications Medications: Current Medications Amlodipine Besylate (Norvasc) 5 mg PO DAILY [facility] Last Admin: 01/08/18 10:10 Dose: 5 mg Aripiprazole (Abilify) 5 mg PO BID [facility] Last Admin: 01/08/18 18:17 Dose: 5 mg Aspirin (Ecotrin) 81 mg PO DAILY [facility] Last Admin: 01/08/18 10:10 Dose: 81 mg Clopidogrel Bisulfate (Plavix) 75 mg PO DAILY [facility] Last Admin: 01/08/18 10:10 Dose: 75 mg Clotrimazole (Lotrimin 1%) 1 gm TOP BID [facility] Last Admin: 01/08/18 18:21 Dose: 1 applic Divalproex Sodium (Depakote Dr) 500 mg PO BID [facility] Last Admin: 01/08/18 18:17 Dose: 500 mg Insulin Aspart (Novolog) 0 unit SC ACHS [facility] Last Admin: 01/08/18 18:18 Dose: Not Given Insulin Aspart (Novolog) 6 unit SC AC [facility] Last Admin: 01/08/18 18:18 Dose: 6 units Insulin Glargine (Lantus) 16 unit SC HS [facility] Metoprolol Succinate (Toprol Xl) 25 mg PO DAILY [facility] Last Admin: 01/08/18 10:10 Dose: 25 mg Pregabalin (Lyrica) 75 mg PO TID [facility] Last Admin: 01/08/18 18:17 Dose: 75 mg Rosuvastatin Calcium (Crestor) 2.5 mg PO HS [facility] Last Admin: 01/07/18 21:55 Dose: 2.5 mg Saccharomyces Boulardii (Florastor) 250 mg PO BID [facility] Last Admin: 01/08/18 18:17 Dose: 250 mg Trazodone HCl (Desyrel) 50 mg PO HS [facility] Last Admin: 01/07/18 21:55 Dose: 50 mg - Labs Labs: 01/08/18 07:29 01/08/18 07:29 Assessment and Plan (1) DKA (diabetic ketoacidoses) Status: Acute (2) Dehydration Status: Acute (3) Diabetes mellitus Status: Acute (4) History of coronary artery disease Status: Acute (5) History of hypertension Status: Acute (6) History of schizophrenia Status: Acute (7) Prophylactic measure Status: Acute (8) Schizophrenia Status: Acute (9) UTI (lower urinary tract infection) Status: Acute (10) CAD (coronary artery disease) Status: Chronic (11) Diabetes mellitus type 2, insulin dependent Status: Chronic (12) HTN (hypertension) Status: Chronic Attending/Attestation - Attestation I have personally seen and examined this patient.: Yes I have fully participated in the care of the patient.: Yes I have reviewed all pertinent clinical information, including history, physical exam and plan: Yes Notes (Text): Patient seen, examined, and case discussed with day-time resident. Patient seen this afternoon. patient is pleasant, not combative, has had a bowel movement. We are awaiting placement for discharge. Social and case management on the case. Assessment/Plan 1. Diabetic Ketoacidosis, resolved Uncontrolled diabetes Assessment/Plan * Insulin sliding scale - low * Lantus 16 units SC QHS * Novolog 6 units SC AC * Accuchecks ACHS * Hgb A1c (12/27): 12.3 * Endocrinology, Dr. Hernandez consulted * Hypoglycemia protocol * Monitor Potassium with AM labs 2. Acute Renal Insufficiency Assessment/Plan * Monitor BUN/Cr * Will encourage patient to drink more fluids * Continue to monitor * Bladder US (12/27): no hydronephrosis. b/l echogenic kidneys compatible with medical renal disease. no echogenic shadowing renal stones noted. no bladder calculi, no intrinsic bladder pathology. 3. Hypertension Assessment/Plan * Metoprolol 25mg PO QD * Norvasc 5mg PO QD * Hold Lisinopril - due to hyperkalemia. Not indicated to use ARB's due to risk of hyperkalemia 4. Hyperkalemia Assessment/Plan * K+: 4.7 today * Hold Lisinopril secondary to hyperkalemia * EKG: NSR @ 72 bpm * Will continue to monitor 5. Schizophrenia and bipolar disorder, and aggressive Behavior Assessment/Plan - Pschicrystal, Dr. Delgado consulted - Abilify 5mg PO BID - Depakote 500 mg PO BID - Trazodone 50mg PO HS 6. Normocytic Anemia Assessment/Plan - No active bleeding at this time - Continue to monitor H & H 7. History of Coronary Artery Disease Assessment/Plan * ASA 81mg PO QDaily * Plavix 75mg PO QDaily * Metoprolol 25mg PO QDaily 8. Hyperlipidemia Assessment/Plan * Crestor 2.5mg PO QHS 9. History of seizures Assessment/Plan * Depakote 500 mg PO BID 10. Neuropathic Pain Assessment/Plan - Likely secondary diabetic pain - Lyrica 75 mg PO TID 11. Prophylaxis/diet: - Heparin 5000 units SC Q8H - Florastor 250 mg PO BID - Carbohydrate consistent diet Disposition: patient is medically stable. patient is awaiting placement. Per prior discussion with social and case management, it will difficult to place patient for discharge given prior occurrences.
--- NOTE | 2018-01-08 08:20 | PN ---
DATE: 01/07/2018 ENDOCRINOLOGY FOLLOWUP NOTE LOCATION: In room 359. SUBJECTIVE: This is a 57-year-old male with recent uncontrolled type 2 insulin-requiring diabetes, now being followed closely for metabolic management. His glycemic levels are fluctuating as noted overnight with glucose values ranging from 347 to 371 mg/dL. It was 206 at bedtime last night and 303 at dinner time as noted. LABORATORY DATA: His chemistries today showed a BUN of 32, sodium 135, potassium 5.8, chloride 103, CO2 of 25, glucose 322, and creatinine 1.3. ASSESSMENT AND PLAN: So at this time, we will modify once again his basal and bolus insulin regimen and increase the Lantus to 20 units subcutaneous at bedtime daily to start tonight. We will also increase his prandial insulin with NovoLog to be given as 8 units subcutaneous t.i.d. before meals to start at lunchtime today as ordered. We will also continue the low dose correction scale using NovoLog insulin as given. We will obtain serial chemistries and supplement accordingly as needed. We will follow. Brook Hernandez MD
[2018-01-08] MEDS: (Novolog) Insulin Aspart, Recombinant 100 u/ml 10 ml vial SC SCH ×7 (08:29→22:03)
[2018-01-08 08:47] LABS: ALB/GLOB RATIO 1.2 (1.0-2.1); ALBUMIN 3.1 g/dL (3.5-5.0); CALCIUM 8.6 mg/dl (8.6-10.4)
[2018-01-08] MEDS: Metoprolol Succinate 25 mg XL Tab PO SCH (10:10)
[2018-01-08] MEDS: Saccharomyces Boulardi 250 mg Cap PO SCH ×2 (10:10→18:17)
[2018-01-08] MEDS: Clotrimazole 1% Cream(30 gm) TOP SCH ×2 (10:11→18:21)
[2018-01-08] MEDS: Divalproex 500 mg DR Tab PO SCH ×2 (10:11→18:17)
--- NOTE | 2018-01-08 21:43 | CARD ---
APPROVED REPORT Date of service: 01/07/2018 EKG Measurement Heart [id number] <Conclusion> Normal sinus rhythm Nonspecific T wave abnormality Abnormal ECG
[2018-01-08] MEDS: (Lantus) Insulin Glargine, Recombinant SC SCH (22:02)
[2018-01-08] MEDS: Rosuvastatin Calcium 2.5 mg Tab PO SCH (22:02)
--- NOTE | 2018-01-08 23:58 | PN ---
DATE: 01/08/2018 LOCATION: In room 359. SUBJECTIVE: This is a 57-year-old male with recent uncontrolled type 2 insulin-requiring diabetes, now being followed closely for metabolic management. His glycemic levels are extremely fluctuating with today's glucose values ranging from 86 to 89 and 272 mg/dL. His latest chemistries show a BUN of 39, sodium 137, potassium 4.7, chloride 106, CO2 25, glucose 103, and creatinine 1.6. So, at this time we will modify once again his basal and bolus insulin regimen and lower the NovoLog to 6 units t.i.d. before meals to start today. We will also lower the basal insulin with Lantus to be given as 16 units subcutaneous at bedtime daily to start tonight. We will modify the low dose correction scale using NovoLog insulin to obviate hypoglycemia. We will obtain serial chemistries and supplement accordingly as needed. We will follow. Brook Hernandez MD
[2018-01-09 07:35] LABS: BASO # 0.1 K/uL (0.0-0.2); BASO % 0.7 % (0.0-2.0); EOS # 0.2 K/uL (0.0-0.7); EOS % 2.7 % (0.0-4.0); HEMOGLOBIN 8.4 g/dL (12.0-18.0); LYMPH # 3.1 K/uL (1.0-4.3); MEAN CELL VOLUME 93.6 fL (80.0-94.0); MEAN CORPUSCULAR HEMOGLOBIN 32.8 pg (27.0-31.0); MEAN PLATELET VOLUME 7.5 fL (7.2-11.7); MONO # 0.8 K/uL (0.0-0.8); MONO % 8.8 % (0.0-10.0); NEUT # 4.5 K/uL (1.8-7.0); NEUT % 51.8 % (50.0-75.0); RBC 2.55 Mil/uL (4.40-5.90); RED CELL DISTRIBUTION WIDTH 13.8 % (11.5-14.5); WHITE BLOOD COUNT 8.6 K/uL (4.8-10.8)
[2018-01-09] MEDS: (Novolog) Insulin Aspart, Recombinant 100 u/ml 10 ml vial SC SCH ×7 (07:39→22:05)
--- NOTE | 2018-01-09 07:39 | CP.PCM.PN ---
<Jaxson Patrick - Last Filed: 01/09/18 17:03> Subjective - Date & Time of Evaluation Date of Evaluation: 01/09/18 Time of Evaluation: 07:39 - Subjective Subjective: PGY-1 Medicine Progress Note for Dr. Pappas Patient was seen and examined today. Nurse reports no overnight events. Patient is comfortable and sitting eating breakfast. He denies any pain, fevers, chills, headache, nausea, vomiting, shortness of breath, chest pain, or abdominal pain. Objective - Vital Signs/Intake and Output Vital Signs (last 24 hours): Temp Pulse Resp BP Pulse Ox 98.2 F 71 20 118/67 98 01/09/18 00:38 01/09/18 00:38 01/09/18 00:38 01/09/18 00:38 01/09/18 00:38 Intake and Output: 01/09/18 01/09/18 06:59 18:59 Intake Total 850 Balance 850 - Medications Medications: Current Medications Amlodipine Besylate (Norvasc) 5 mg PO DAILY [facility] Last Admin: 01/08/18 10:10 Dose: 5 mg Aripiprazole (Abilify) 5 mg PO BID [facility] Last Admin: 01/08/18 18:17 Dose: 5 mg Aspirin (Ecotrin) 81 mg PO DAILY [facility] Last Admin: 01/08/18 10:10 Dose: 81 mg Clopidogrel Bisulfate (Plavix) 75 mg PO DAILY [facility] Last Admin: 01/08/18 10:10 Dose: 75 mg Clotrimazole (Lotrimin 1%) 1 gm TOP BID [facility] Last Admin: 01/08/18 18:21 Dose: 1 applic Divalproex Sodium (Depakote Dr) 500 mg PO BID [facility] Last Admin: 01/08/18 18:17 Dose: 500 mg Insulin Aspart (Novolog) 0 unit SC ACHS [facility] Last Admin: 01/09/18 07:39 Dose: Not Given Insulin Aspart (Novolog) 6 unit SC AC [facility] Last Admin: 01/08/18 18:18 Dose: 6 units Insulin Glargine (Lantus) 16 unit SC HS [facility] Last Admin: 01/08/18 22:02 Dose: 16 units Metoprolol Succinate (Toprol Xl) 25 mg PO DAILY [facility] Last Admin: 01/08/18 10:10 Dose: 25 mg Pregabalin (Lyrica) 75 mg PO TID [facility] Last Admin: 01/08/18 18:17 Dose: 75 mg Rosuvastatin Calcium (Crestor) 2.5 mg PO [facility] Last Admin: 01/08/18 22:02 Dose: 2.5 mg Saccharomyces Boulardii (Florastor) 250 mg PO BID [facility] Last Admin: 01/08/18 18:17 Dose: 250 mg Trazodone HCl (Desyrel) 50 mg PO [facility] Last Admin: 01/08/18 22:02 Dose: 50 mg - Labs Labs: 01/09/18 07:10 01/08/18 07:29 - Additional Findings Additional findings: - Constitutional Appears: Non-toxic, No Acute Distress - Head Exam Head Exam: ATRAUMATIC, NORMOCEPHALIC - Eye Exam Eye Exam: EOMI, Normal appearance - ENT Exam ENT Exam: Mucous Membranes Moist Additional comments: poor dentition, no dentures - Respiratory Exam Respiratory Exam: Clear to Ausculation Bilateral, NORMAL BREATHING PATTERN. absent: Rales, Rhonchi, Wheezes - Cardiovascular Exam Cardiovascular Exam: REGULAR RHYTHM, +S1, +S2 - GI/Abdominal Exam GI & Abdominal Exam: Soft, Normal Bowel Sounds. absent: Tenderness - Extremities Exam Extremities Exam: Normal Capillary Refill, Normal Inspection. absent: Pedal Edema, Tenderness Additional comments: - Neurological Exam Neurological Exam: Alert, Awake. absent: Oriented x3 - Psychiatric Exam Psychiatric exam: Normal Affect, Normal Mood - Skin Skin Exam: Dry, Intact, Normal Color Assessment and Plan - Assessment and Plan (Free Text) Assessment: Patient is a 57 year old male with PMH of dementia and DKA who was admitted to the ICU for treatment of DKA. Now on inpatient floor and hemodynamically stable. DKA has resolved. Patient is awaiting acceptance at [facility]. Plan: Diabetic Ketoacidosis, resolved: - Insulin sliding scale - low - Lantus 16 units SC QHS - Novolog 6 units SC AC - Accuchecks ACHS - Fluctuating glucose levels ranging from 200-370 - Will make sure patient is not drinking fruit juices or any other sugary food/drinks - Hgb A1c (12/27): 12.3 - Endocrinology, Dr. Hernandez consulted - Hypoglycemia protocol - Monitor Potassium with AM labs JORGE L: - BUN/Cr: 43/1.7 - trending up from yesterday - Start IVF: NS @ 50 mls/hr - Will encourage patient to drink more fluids - Continue to monitor Hypertension: - Metoprolol 25mg PO QD - Norvasc 5mg PO QD - Hold Lisinopril - due to hyperkalemia. Not indicated to use ARB's due to risk of hyperkalemia Hyperkalemia: - K+: 5.6 today - Hold Lisinopril - EKG (01/07): NSR @ 72 bpm - Will continue to monitor Schizophrenia and bipolar disorder, and aggressive Behavior: - Pschiatry, Dr. Delgado consulted - Abilify 5mg PO BID - Depakote 500 mg PO BID - Trazodone 50mg PO HS Normocytic Anemia: - No active bleeding at this time - Continue to monitor H & H Coronary Artery Disease: - ASA 81mg PO QD - Plavix 75mg PO QD - Metoprolol 25mg PO QD Hyperlipidemia: - Crestor 2.5mg PO QD History of seizures: - Depakote 500 mg PO BID Neuropathic Pain: - Likely secondary diabetic pain - Lyrica 75 mg PO TID Acute Renal Insufficiency, resolved: - Bladder US (12/27): no hydronephrosis. b/l echogenic kidneys compatible with medical renal disease. no echogenic shadowing renal stones noted. no bladder calculi, no intrinsic bladder pathology. Prophylaxis/diet: - Heparin 5000 units SC Q8H - Florastor 250 mg PO BID - Carbohydrate consistent diet Disposition: Awaiting acceptance to [facility]: [facility] [place] [place] Case discussed with Dr. Mian Patrick, PGY-1 <Lashell Pappas V - Last Filed: 01/18/18 21:36> Objective - Vital Signs/Intake and Output Vital Signs (last 24 hours): Temp Pulse Resp BP Pulse Ox 98.9 F 73 20 153/74 H 99 01/17/18 15:30 01/17/18 15:30 01/17/18 15:30 01/17/18 15:30 01/17/18 15:30 - Labs Labs: 01/17/18 11:42 01/17/18 11:42 Assessment and Plan (1) DKA (diabetic ketoacidoses) Status: Acute (2) Dehydration Status: Acute (3) Diabetes mellitus Status: Acute (4) History of coronary artery disease Status: Acute (5) History of hypertension Status: Acute (6) History of schizophrenia Status: Acute (7) Prophylactic measure Status: Acute (8) Schizophrenia Status: Acute (9) UTI (lower urinary tract infection) Status: Acute (10) CAD (coronary artery disease) Status: Chronic (11) Diabetes mellitus type 2, insulin dependent Status: Chronic (12) HTN (hypertension) Status: Chronic Attending/Attestation - Attestation I have personally seen and examined this patient.: Yes I have fully participated in the care of the patient.: Yes I have reviewed all pertinent clinical information, including history, physical exam and plan: Yes Notes (Text): This is late computer entry fo 01/09/18. Patient seen, examined, and case discussed with day-time resident. Patient seen this afternoon. patient is pleasant, not combative, has had a bowel movement. We are awaiting placement for discharge. Social and case management on the case. Assessment/Plan 1. Diabetic Ketoacidosis, resolved Uncontrolled diabetes Assessment/Plan * Insulin sliding scale - low * Lantus 16 units SC QHS * Novolog 6 units SC AC * Accuchecks ACHS * Hgb A1c (12/27): 12.3 * Endocrinology, Dr. Hernandez consulted * Hypoglycemia protocol * Monitor Potassium with AM labs 2. Acute Renal Insufficiency Assessment/Plan * Monitor BUN/Cr * Will encourage patient to drink more fluids * Continue to monitor * Bladder US (12/27): no hydronephrosis. b/l echogenic kidneys compatible with medical renal disease. no echogenic shadowing renal stones noted. no bladder calculi, no intrinsic bladder pathology. 3. Hypertension Assessment/Plan * Metoprolol 25mg PO QD * Norvasc 5mg PO QD * Hold Lisinopril - due to hyperkalemia. Not indicated to use ARB's due to risk of hyperkalemia 4. Hyperkalemia Assessment/Plan * K+: 4.7 today * Hold Lisinopril secondary to hyperkalemia * EKG: NSR @ 72 bpm * Will continue to monitor 5. Schizophrenia and bipolar disorder, and aggressive Behavior Assessment/Plan - Pschiatry, Dr. Delgado consulted - Abilify 5mg PO BID - Depakote 500 mg PO BID - Trazodone 50mg PO HS 6. Normocytic Anemia Assessment/Plan - No active bleeding at this time - Continue to monitor H & H 7. History of Coronary Artery Disease Assessment/Plan * ASA 81mg PO QDaily * Plavix 75mg PO QDaily * Metoprolol 25mg PO QDaily 8. Hyperlipidemia Assessment/Plan * Crestor 2.5mg PO QHS 9. History of seizures Assessment/Plan * Depakote 500 mg PO BID 10. Neuropathic Pain Assessment/Plan - Likely secondary diabetic pain - Lyrica 75 mg PO TID 11. Prophylaxis/diet: - Heparin 5000 units SC Q8H - Florastor 250 mg PO BID - Carbohydrate consistent diet Disposition: patient is medically stable. patient is awaiting placement. Per prior discussion with social and case management, it will difficult to place patient for discharge given prior occurrences.
[2018-01-09 08:09] LABS: ALB/GLOB RATIO 1.3 (1.0-2.1); ALBUMIN 3.2 g/dL (3.5-5.0); CALCIUM 8.8 mg/dl (8.6-10.4)
[2018-01-09] MEDS: Metoprolol Succinate 25 mg XL Tab PO SCH (09:44)
[2018-01-09] MEDS: Divalproex 500 mg DR Tab PO SCH ×2 (09:44→17:49)
[2018-01-09] MEDS: Saccharomyces Boulardi 250 mg Cap PO SCH ×2 (09:44→17:49)
[2018-01-09] MEDS: Clotrimazole 1% Cream(30 gm) TOP SCH ×2 (09:45→18:00)
[2018-01-09] MEDS ORDERED: Sod Polystyrene Sulf 15 gm/60 ml Susp PO STA (09:51)
[2018-01-09] MEDS ORDERED: Sodium Chloride 0.9% 1,000 ML IV SCH (17:15)
[2018-01-09] MEDS: Rosuvastatin Calcium 2.5 mg Tab PO SCH (21:12)
[2018-01-09] MEDS: (Lantus) Insulin Glargine, Recombinant SC SCH (21:13)
[2018-01-09] MEDS: Simethicone 80 mg Chewtab PO SCH (21:19)
--- NOTE | 2018-01-09 22:20 | PN ---
DATE: LOCATION: Room 359. SUBJECTIVE: This is a 57-year-old male with recent uncontrolled type 2 insulin-requiring diabetes, now being followed closely for metabolic management. Once again, he has extremes of glycemic fluctuations as noted overnight with the morning insulin regimen possibly being held by the nursing staff because of the marked hyperglycemic accelerations at lunchtime with glucose levels of 480 mg/dL. His fasting glucose was 196 and his bedtime glucose was 113 mg/dL. LABORATORY DATA: His chemistry showed a BUN of 43, sodium 134, potassium 5.6, chloride 103, CO2 of 25, glucose 189, and creatinine 1.7. ASSESSMENT AND PLAN: So at this time, we will continue the modified basal and bolus insulin regimen as given with NovoLog given at 6 units subcutaneously t.i.d. before meals, to start today as ordered. We will continue also the basal insulin given at 16 units of Lantus at bedtime as ordered. We will obtain serial chemistries and supplement accordingly as needed. We will follow this. Brook Hernandez MD (Delete this signature block when dictator is a preceptor.)
--- NOTE | 2018-01-10 07:21 | CP.PCM.PN ---
<Jaxson Patrick - Last Filed: 01/10/18 15:33> Subjective - Date & Time of Evaluation Date of Evaluation: 01/10/18 Time of Evaluation: 07:21 - Subjective Subjective: PGY-1 Medicine Progress Note for Dr. Pappas Patient was seen and examined today. Nurse reports no overnight events. Patient is comfortable and sitting on his bed eating breakfast. He denies any pain, fevers, chills, headache, nausea, vomiting, shortness of breath, chest pain, or abdominal pain. Objective - Vital Signs/Intake and Output Vital Signs (last 24 hours): Temp Pulse Resp BP Pulse Ox 98.2 F 78 20 136/73 97 01/10/18 05:30 01/10/18 00:17 01/10/18 00:17 01/10/18 00:17 01/10/18 00:17 Intake and Output: 01/10/18 01/10/18 06:59 18:59 Intake Total 1150 Balance 1150 - Medications Medications: Current Medications Amlodipine Besylate (Norvasc) 5 mg PO DAILY [facility] Last Admin: 01/09/18 09:45 Dose: 5 mg Aripiprazole (Abilify) 5 mg PO BID [facility] Last Admin: 01/09/18 17:49 Dose: 5 mg Aspirin (Ecotrin) 81 mg PO DAILY [facility] Last Admin: 01/09/18 09:45 Dose: 81 mg Clopidogrel Bisulfate (Plavix) 75 mg PO DAILY [facility] Last Admin: 01/09/18 09:45 Dose: 75 mg Clotrimazole (Lotrimin 1%) 1 gm TOP BID [facility] Last Admin: 01/09/18 18:00 Dose: 1 applic Divalproex Sodium (Depakote Dr) 500 mg PO BID [facility] Last Admin: 01/09/18 17:49 Dose: 500 mg Docusate Sodium (Colace) 100 mg PO BID [facility] Last Admin: 01/09/18 19:00 Dose: 100 mg Insulin Aspart (Novolog) 0 unit SC ACHS [facility] Last Admin: 01/09/18 22:05 Dose: Not Given Insulin Aspart (Novolog) 6 unit SC AC [facility] Last Admin: 01/09/18 17:14 Dose: 6 units Insulin Glargine (Lantus) 16 unit SC HS [facility] Last Admin: 01/09/18 21:13 Dose: 16 units Metoprolol Succinate (Toprol Xl) 25 mg PO DAILY [facility] Last Admin: 01/09/18 09:44 Dose: 25 mg Pregabalin (Lyrica) 75 mg PO TID [facility] Last Admin: 01/09/18 17:49 Dose: 75 mg Rosuvastatin Calcium (Crestor) 2.5 mg PO [facility] Last Admin: 01/09/18 21:12 Dose: 2.5 mg Saccharomyces Boulardii (Florastor) 250 mg PO BID [facility] Last Admin: 01/09/18 17:49 Dose: 250 mg Simethicone (Mylicon Chew Tab) 80 mg PO BID [facility] Last Admin: 01/09/18 21:19 Dose: 80 mg Trazodone HCl (Desyrel) 50 mg PO [facility] Last Admin: 01/09/18 21:12 Dose: 50 mg - Labs Labs: 01/09/18 07:10 01/09/18 07:10 - Constitutional Appears: Well, Non-toxic, No Acute Distress - Head Exam Head Exam: ATRAUMATIC, NORMOCEPHALIC - Eye Exam Eye Exam: EOMI, Normal appearance - ENT Exam ENT Exam: Mucous Membranes Moist - Respiratory Exam Respiratory Exam: Clear to Ausculation Bilateral, NORMAL BREATHING PATTERN. absent: Rales, Rhonchi, Wheezes - Cardiovascular Exam Cardiovascular Exam: REGULAR RHYTHM, +S1, +S2. absent: Gallop, Rubs, Murmur - GI/Abdominal Exam GI & Abdominal Exam: Soft, Normal Bowel Sounds. absent: Distended, Guarding, Tenderness - Extremities Exam Extremities Exam: Normal Inspection. absent: Calf Tenderness, Pedal Edema, Tenderness - Neurological Exam Neurological Exam: Alert, Awake, Oriented x3 - Psychiatric Exam Psychiatric exam: Normal Affect, Normal Mood - Skin Skin Exam: Dry, Intact, Normal Color, Warm Assessment and Plan - Assessment and Plan (Free Text) Assessment: Patient is a 57 year old male with PMH of dementia and DKA who was admitted to the ICU for treatment of DKA. Now on inpatient floor and hemodynamically stable. DKA has resolved. Patient is awaiting acceptance at [facility]. Plan: Diabetic Ketoacidosis, resolved: - Insulin sliding scale - low - Lantus 16 units SC QHS - Novolog 6 units SC AC - Accuchecks ACHS - Fluctuating glucose levels ranging from 200-370 - Will make sure patient is not drinking fruit juices or any other sugary food/drinks - Hgb A1c (12/27): 12.3 - Endocrinology, Dr. Hernandez consulted - Hypoglycemia protocol - Monitor Potassium with AM labs JORGE L: - BUN/Cr: 39/1.5 - downtrending - Start IVF: NS @ 50 mls/hr - Will encourage patient to drink more fluids - Continue to monitor Hypertension: - Metoprolol 25mg PO QD - Norvasc 5mg PO QD - Hold Lisinopril - due to hyperkalemia. Not indicated to use ARB's due to risk of hyperkalemia Hyperkalemia: - K+: 5.6 today - Kayexalate 15mg PO ONCE - Hold Lisinopril - EKG (01/07): NSR @ 72 bpm - Will continue to monitor Schizophrenia and bipolar disorder, and aggressive Behavior: - Pschiatry, Dr. Delgado consulted - Abilify 5mg PO BID - Depakote 500 mg PO BID - Trazodone 50mg PO HS Normocytic Anemia: - No active bleeding at this time - Continue to monitor H & H Coronary Artery Disease: - ASA 81mg PO QD - Plavix 75mg PO QD - Metoprolol 25mg PO QD Hyperlipidemia: - Crestor 2.5mg PO QD History of seizures: - Depakote 500 mg PO BID Neuropathic Pain: - Likely secondary diabetic pain - Lyrica 75 mg PO TID Acute Renal Insufficiency, resolved: - Bladder US (12/27): no hydronephrosis. b/l echogenic kidneys compatible with medical renal disease. no echogenic shadowing renal stones noted. no bladder calculi, no intrinsic bladder pathology. Prophylaxis/diet: - Heparin 5000 units SC Q8H - Florastor 250 mg PO BID - Carbohydrate consistent diet Disposition: Awaiting acceptance to cadd technician care: Kaela Santos, pending for patient's to submit financial documents. Case discussed with Dr. Mian Patrick, PGY-1 <Lashell Pappas V - Last Filed: 01/18/18 21:37> Objective - Vital Signs/Intake and Output Vital Signs (last 24 hours): Temp Pulse Resp BP Pulse Ox 98.9 F 73 20 153/74 H 99 01/17/18 15:30 01/17/18 15:30 01/17/18 15:30 01/17/18 15:30 01/17/18 15:30 - Labs Labs: 01/17/18 11:42 01/17/18 11:42 Assessment and Plan (1) DKA (diabetic ketoacidoses) Status: Acute (2) Dehydration Status: Acute (3) Diabetes mellitus Status: Acute (4) History of coronary artery disease Status: Acute (5) History of hypertension Status: Acute (6) History of schizophrenia Status: Acute (7) Prophylactic measure Status: Acute (8) Schizophrenia Status: Acute (9) UTI (lower urinary tract infection) Status: Acute (10) CAD (coronary artery disease) Status: Chronic (11) Diabetes mellitus type 2, insulin dependent Status: Chronic (12) HTN (hypertension) Status: Chronic Attending/Attestation - Attestation I have personally seen and examined this patient.: Yes I have fully participated in the care of the patient.: Yes I have reviewed all pertinent clinical information, including history, physical exam and plan: Yes Notes (Text): Patient seen, examined, and case discussed with day-time resident. Patient seen this afternoon. patient is pleasant, not combative, has had a bowel movement. Patient had mildly elevated potassium. Given Kayexlate today. We are awaiting placement for discharge. Social and case management on the case. Assessment/Plan 1. Diabetic Ketoacidosis, resolved Uncontrolled diabetes Assessment/Plan * Insulin sliding scale - low * Lantus 16 units SC QHS * Novolog 6 units SC AC * Accuchecks ACHS * Hgb A1c (12/27): 12.3 * Endocrinology, Dr. Hernandez consulted * Hypoglycemia protocol * Monitor Potassium with AM labs 2. Acute Renal Insufficiency Assessment/Plan * Monitor BUN/Cr * Will encourage patient to drink more fluids * Continue to monitor * Bladder US (12/27): no hydronephrosis. b/l echogenic kidneys compatible with medical renal disease. no echogenic shadowing renal stones noted. no bladder calculi, no intrinsic bladder pathology. 3. Hypertension Assessment/Plan * Metoprolol 25mg PO QD * Norvasc 5mg PO QD * Hold Lisinopril - due to hyperkalemia. Not indicated to use ARB's due to risk of hyperkalemia 4. Hyperkalemia Assessment/Plan * Given Kayexlate * Hold Lisinopril secondary to hyperkalemia * EKG: NSR @ 72 bpm * Will continue to monitor 5. Schizophrenia and bipolar disorder, and aggressive Behavior Assessment/Plan - Pschiatry, Dr. Delgado consulted - Abilify 5mg PO BID - Depakote 500 mg PO BID - Trazodone 50mg PO HS 6. Normocytic Anemia Assessment/Plan - No active bleeding at this time - Continue to monitor H & H 7. History of Coronary Artery Disease Assessment/Plan * ASA 81mg PO QDaily * Plavix 75mg PO QDaily * Metoprolol 25mg PO QDaily 8. Hyperlipidemia Assessment/Plan * Crestor 2.5mg PO QHS 9. History of seizures Assessment/Plan * Depakote 500 mg PO BID 10. Neuropathic Pain Assessment/Plan - Likely secondary diabetic pain - Lyrica 75 mg PO TID 11. Prophylaxis/diet: - Heparin 5000 units SC Q8H - Florastor 250 mg PO BID - Carbohydrate consistent diet Disposition: patient is medically stable. patient is awaiting placement. Per prior discussion with social and case management, it will difficult to place patient for discharge given prior occurrences.
[2018-01-10] MEDS: (Novolog) Insulin Aspart, Recombinant 100 u/ml 10 ml vial SC SCH ×7 (09:07→21:41)
[2018-01-10] MEDS: Divalproex 500 mg DR Tab PO SCH ×2 (09:08→17:21)
[2018-01-10] MEDS: Saccharomyces Boulardi 250 mg Cap PO SCH ×2 (09:08→17:18)
[2018-01-10] MEDS: Simethicone 80 mg Chewtab PO SCH ×2 (09:09→17:18)
[2018-01-10] MEDS: Metoprolol Succinate 25 mg XL Tab PO SCH (09:09)
[2018-01-10] MEDS: Clotrimazole 1% Cream(30 gm) TOP SCH ×3 (09:20→17:23)
[2018-01-10 11:05] LABS: BASO # 0.1 K/uL (0.0-0.2); BASO % 0.8 % (0.0-2.0); EOS # 0.3 K/uL (0.0-0.7); EOS % 2.7 % (0.0-4.0); HEMOGLOBIN 8.9 g/dL (12.0-18.0); LYMPH # 3.1 K/uL (1.0-4.3); LYMPH % 33.4 % (20.0-40.0); MEAN CELL VOLUME 94.6 fL (80.0-94.0); MEAN CORPUSCULAR HEMOGLOBIN 31.8 pg (27.0-31.0); MEAN CORPUSCULAR HGB CONC 33.6 g/dL (33.0-37.0); MEAN PLATELET VOLUME 7.3 fL (7.2-11.7); MONO # 0.6 K/uL (0.0-0.8); MONO % 6.6 % (0.0-10.0); NEUT # 5.3 K/uL (1.8-7.0); NEUT % 56.5 % (50.0-75.0); RBC 2.8 Mil/uL (4.40-5.90); RED CELL DISTRIBUTION WIDTH 13.8 % (11.5-14.5); WHITE BLOOD COUNT 9.4 K/uL (4.8-10.8)
[2018-01-10 11:23] LABS: ALB/GLOB RATIO 1.3 (1.0-2.1); ALBUMIN 3.6 g/dL (3.5-5.0); CALCIUM 9.2 mg/dl (8.6-10.4)
[2018-01-10] MEDS ORDERED: Sod Polystyrene Sulf 15 gm/60 ml Susp PO ONE ×2 (11:49→13:45)
[2018-01-10] MEDS ORDERED: Sodium Chloride 0.9% 1,000 ML IV SCH (12:00)
--- NOTE | 2018-01-10 13:46 | PN ---
DATE: 01/10/2018 ENDO FOLLOWUP NOTE LOCATION: Room 359. SUBJECTIVE: This is a 57-year-old male with recent uncontrolled type 2 insulin-requiring diabetes, now being followed closely for metabolic management. His glycemic levels are fluctuating, but much improved at this time and the glucose values have ranged from 133 to 262 mg/dL. His latest chemistries showed a BUN of 39, sodium 138, potassium 5.6, chloride 105, CO2 24, glucose 150, and creatinine 1.5. ASSESSMENT AND PLAN: So, at this time, we will continue the same basal and bolus insulin regimen to allow for dose equilibration and keep him on the NovoLog given as 6 units subcutaneous t.i.d. before meals as ordered. We will continue the Lantus given as 16 units subcutaneous at bedtime daily as given. We will obtain serial chemistries and supplement accordingly as needed. We will follow. Brook Hernandez MD
[2018-01-10] MEDS: Rosuvastatin Calcium 2.5 mg Tab PO SCH (21:39)
[2018-01-10] MEDS: (Lantus) Insulin Glargine, Recombinant SC SCH (21:40)
--- NOTE | 2018-01-11 07:56 | CP.PCM.PN ---
<Veronika Wynn - Last Filed: 01/11/18 17:44> Subjective - Date & Time of Evaluation Date of Evaluation: 01/11/18 Time of Evaluation: 17:44 - Subjective Subjective: Patient seen and examined at bedside this morning. Patient states he feels fine. No chest pain, SOB, nausea, vomiting, diarrhea, headaches, abdominal pain. Objective - Vital Signs/Intake and Output Vital Signs (last 24 hours): Temp Pulse Resp BP Pulse Ox 98.5 F 70 20 149/75 98 01/11/18 00:21 01/11/18 00:21 01/11/18 00:21 01/11/18 00:21 01/11/18 00:21 Intake and Output: 01/11/18 01/11/18 06:59 18:59 Intake Total 640 Output Total 700 Balance -60 - Medications Medications: Current Medications Amlodipine Besylate (Norvasc) 5 mg PO DAILY [facility] Last Admin: 01/10/18 09:09 Dose: 5 mg Aripiprazole (Abilify) 5 mg PO BID [facility] Last Admin: 01/10/18 17:21 Dose: 5 mg Aspirin (Ecotrin) 81 mg PO DAILY [facility] Last Admin: 01/10/18 09:09 Dose: 81 mg Clopidogrel Bisulfate (Plavix) 75 mg PO DAILY [facility] Last Admin: 01/10/18 09:09 Dose: 75 mg Clotrimazole (Lotrimin 1%) 1 gm TOP BID [facility] Last Admin: 01/10/18 17:23 Dose: 1 applic Divalproex Sodium (Depakote Dr) 500 mg PO BID [facility] Last Admin: 01/10/18 17:21 Dose: 500 mg Docusate Sodium (Colace) 100 mg PO BID [facility] Last Admin: 01/10/18 17:18 Dose: 100 mg Insulin Aspart (Novolog) 0 unit SC ACHS [facility] Last Admin: 01/10/18 21:41 Dose: 2 units Insulin Aspart (Novolog) 6 unit SC AC [facility] Last Admin: 01/10/18 17:19 Dose: 6 units Insulin Glargine (Lantus) 16 unit SC HS [facility] Last Admin: 01/10/18 21:40 Dose: 16 units Metoprolol Succinate (Toprol Xl) 25 mg PO DAILY [facility] Last Admin: 01/10/18 09:09 Dose: 25 mg Pregabalin (Lyrica) 75 mg PO TID [facility] Last Admin: 01/10/18 17:19 Dose: 75 mg Rosuvastatin Calcium (Crestor) 2.5 mg PO [facility] Last Admin: 01/10/18 21:39 Dose: 2.5 mg Saccharomyces Boulardii (Florastor) 250 mg PO BID [facility] Last Admin: 01/10/18 17:18 Dose: 250 mg Simethicone (Mylicon Chew Tab) 80 mg PO BID [facility] Last Admin: 01/10/18 17:18 Dose: 80 mg Trazodone HCl (Desyrel) 50 mg PO [facility] Last Admin: 01/10/18 21:39 Dose: 50 mg - Labs Labs: 01/10/18 10:57 01/10/18 10:57 - Constitutional Appears: Well, Non-toxic, Older Than Stated Age, Cachectic - Head Exam Head Exam: ATRAUMATIC, NORMAL INSPECTION - Eye Exam Eye Exam: EOMI, Normal appearance - Neck Exam Neck Exam: Normal Inspection - Respiratory Exam Respiratory Exam: Clear to Ausculation Bilateral, NORMAL BREATHING PATTERN - Extremities Exam Extremities Exam: Normal Capillary Refill, Normal Inspection - Neurological Exam Neurological Exam: Alert, Awake - Psychiatric Exam Psychiatric exam: Normal Affect, Normal Mood - Skin Skin Exam: Dry, Intact, Normal Color, Warm Assessment and Plan - Assessment and Plan (Free Text) Assessment: Patient is a 57 year old male with PMH of dementia and DKA who was admitted to the ICU for treatment of DKA. Now on inpatient floor and hemodynamically stable. DKA has resolved. Patient is awaiting acceptance at [facility]. DKA - resolved - Lantus 16 units SC QHS - Novolog 6 units SC AC - Accuchecks ACHS - Fluctuating glucose levels ranging from 200-370 before, now can be improved to 100s - Hgb A1c (12/27): 12.3 - Endocrinology, Dr. Hernandez consulted - evaluated pt today 01/11. Per note, continue with lantus and novolog doses 16 and 6 as written above - Hypoglycemia protocol - Monitor Potassium with AM labs JORGE L - BUN/Cr: 39/1.5 - downtrending - Start IVF: NS @ 50 mls/hr - Will encourage patient to drink more fluids - Continue to monitor HTN - Metoprolol 25mg PO QD - Norvasc 5mg PO QD - Hold Lisinopril - due to hyperkalemia. Not indicated to use ARB's due to risk of hyperkalemia Hyperkalemia - K+: 5.8 today, called lab to ensure it is not hemolyzed before rx kayexalate - Kayexalate 30mg PO ONCE with duonebs, then ensure patient has BM to evacuate excess K - Hold Lisinopril - EKG (01/07): NSR @ 72 bpm - Will continue to monitor CMP qAM CAD - ASA 81mg PO QD - Plavix 75mg PO QD - Metoprolol 25mg PO QD - Crestor 2.5mg PO QD Schizophrenia and bipolar disorder - Psychiatry, Dr. Delgado consulted - Abilify 5mg PO BID - Depakote 500 mg PO BID - Trazodone 50mg PO HS Normocytic Anemia - No active bleeding at this time - Continue to monitor CBC qAM History of seizures - Depakote 500 mg PO BID Neuropathic Pain - Likely secondary to diabetic pain - Lyrica 75 mg PO TID - DVT ppx: Heparin 5000 units SC Q8H - GI ppx: not indicated Disposition: Awaiting acceptance to termite control representative care: Kaela Santos, pending for patient's to submit financial documents. Case discussed with Dr. Mian Wynn PGY-1 <Lashell Pappas V - Last Filed: 01/18/18 21:39> Objective - Vital Signs/Intake and Output Vital Signs (last 24 hours): Temp Pulse Resp BP Pulse Ox 98.9 F 73 20 153/74 H 99 01/17/18 15:30 01/17/18 15:30 01/17/18 15:30 01/17/18 15:30 01/17/18 15:30 - Labs Labs: 01/17/18 11:42 01/17/18 11:42 Assessment and Plan (1) DKA (diabetic ketoacidoses) Status: Acute (2) Dehydration Status: Acute (3) Diabetes mellitus Status: Acute (4) History of coronary artery disease Status: Acute (5) History of hypertension Status: Acute (6) History of schizophrenia Status: Acute (7) Prophylactic measure Status: Acute (8) Schizophrenia Status: Acute (9) UTI (lower urinary tract infection) Status: Acute (10) CAD (coronary artery disease) Status: Chronic (11) Diabetes mellitus type 2, insulin dependent Status: Chronic (12) HTN (hypertension) Status: Chronic Attending/Attestation - Attestation I have personally seen and examined this patient.: Yes I have fully participated in the care of the patient.: Yes I have reviewed all pertinent clinical information, including history, physical exam and plan: Yes Notes (Text): This is late computer entry for 01/11/18. Patient seen, examined and case discussed with medical physics researcher. We are awaiting placement for discharge. Social and case management on the case. Assessment/Plan 1. Diabetic Ketoacidosis, resolved Uncontrolled diabetes Assessment/Plan * Insulin sliding scale - low * Lantus 16 units SC QHS * Novolog 6 units SC AC * Accuchecks ACHS * Hgb A1c (12/27): 12.3 * Endocrinology, Dr. Hernandez consulted * Hypoglycemia protocol * Monitor Potassium with AM labs 2. Acute Renal Insufficiency Assessment/Plan * Monitor BUN/Cr * Will encourage patient to drink more fluids * Continue to monitor * Bladder US (12/27): no hydronephrosis. b/l echogenic kidneys compatible with medical renal disease. no echogenic shadowing renal stones noted. no bladder calculi, no intrinsic bladder pathology. 3. Hypertension Assessment/Plan * Metoprolol 25mg PO QD * Norvasc 5mg PO QD * Hold Lisinopril - due to hyperkalemia. Not indicated to use ARB's due to risk of hyperkalemia 4. Hyperkalemia Assessment/Plan * Hold Lisinopril secondary to hyperkalemia * EKG: NSR @ 72 bpm * Will continue to monitor 5. Schizophrenia and bipolar disorder, and aggressive Behavior Assessment/Plan - Pschiatry, Dr. Delgado consulted - Abilify 5mg PO BID - Depakote 500 mg PO BID - Trazodone 50mg PO HS 6. Normocytic Anemia Assessment/Plan - No active bleeding at this time - Continue to monitor H & H 7. History of Coronary Artery Disease Assessment/Plan * ASA 81mg PO QDaily * Plavix 75mg PO QDaily * Metoprolol 25mg PO QDaily 8. Hyperlipidemia Assessment/Plan * Crestor 2.5mg PO QHS 9. History of seizures Assessment/Plan * Depakote 500 mg PO BID 10. Neuropathic Pain Assessment/Plan - Likely secondary diabetic pain - Lyrica 75 mg PO TID 11. Prophylaxis/diet: - Heparin 5000 units SC Q8H - Florastor 250 mg PO BID - Carbohydrate consistent diet Disposition: patient is medically stable. patient is awaiting placement. Per prior discussion with social and case management, it will difficult to place patient for discharge given prior occurrences.
[2018-01-11] MEDS: (Novolog) Insulin Aspart, Recombinant 100 u/ml 10 ml vial SC SCH ×7 (08:30→22:09)
[2018-01-11] MEDS: Simethicone 80 mg Chewtab PO SCH ×2 (11:00→17:37)
[2018-01-11] MEDS: Clotrimazole 1% Cream(30 gm) TOP SCH ×2 (11:00→17:55)
[2018-01-11] MEDS: Divalproex 500 mg DR Tab PO SCH ×2 (11:00→17:37)
[2018-01-11] MEDS: Metoprolol Succinate 25 mg XL Tab PO SCH (11:00)
[2018-01-11] MEDS: Saccharomyces Boulardi 250 mg Cap PO SCH ×2 (11:00→17:37)
[2018-01-11 11:55] LABS: BASO # 0.1 K/uL (0.0-0.2); BASO % 0.7 % (0.0-2.0); EOS # 0.2 K/uL (0.0-0.7); EOS % 2.4 % (0.0-4.0); HEMOGLOBIN 8.7 g/dL (12.0-18.0); LYMPH # 2.3 K/uL (1.0-4.3); LYMPH % 23.5 % (20.0-40.0); MEAN CELL VOLUME 94.5 fL (80.0-94.0); MEAN CORPUSCULAR HEMOGLOBIN 32.4 pg (27.0-31.0); MEAN CORPUSCULAR HGB CONC 34.3 g/dL (33.0-37.0); MEAN PLATELET VOLUME 7.4 fL (7.2-11.7); MONO # 0.6 K/uL (0.0-0.8); NEUT # 6.4 K/uL (1.8-7.0); NEUT % 67.4 % (50.0-75.0); RBC 2.68 Mil/uL (4.40-5.90); RED CELL DISTRIBUTION WIDTH 13.8 % (11.5-14.5); WHITE BLOOD COUNT 9.6 K/uL (4.8-10.8)
[2018-01-11 12:12] LABS: ALB/GLOB RATIO 1.2 (1.0-2.1); ALBUMIN 3.1 g/dL (3.5-5.0); ALT/SGPT 26 U/L (21-72); AST/SGOT 26 U/L (17-59); BLOOD UREA NITROGEN 31 mg/dL (9-20); CALCIUM 8.7 mg/dl (8.6-10.4); GFR NON-AFRICAN AMERICAN > 60
[2018-01-11] MEDS ORDERED: Albuterol-Ipratrop 3 mg / 0.5 (3 ml) UD INH STA (13:54)
[2018-01-11] MEDS ORDERED: Sod Polystyrene Sulf 15 gm/60 ml Susp PO ONE (14:00)
[2018-01-11] MEDS: (Lantus) Insulin Glargine, Recombinant SC SCH (22:08)
[2018-01-11] MEDS: Rosuvastatin Calcium 2.5 mg Tab PO SCH (22:08)
--- NOTE | 2018-01-12 02:25 | PN ---
DATE: 01/11/2018 ENDOCRINOLOGY FOLLOWUP NOTE LOCATION: Room 359. This is a 57-year-old male with recent uncontrolled type 2 insulin-requiring diabetes, now being followed closely for metabolic management. His glycemic values are fluctuating but much improved as noted today with glucose levels ranging from 104 to 186 mg/dL. However, it was 327 at bedtime last night. His chemistries today showed a BUN of 31, sodium 138, potassium 5.8, chloride 105, CO2 of 23, glucose 189, and creatinine 1.2. So at this time, we will continue the same basal and bolus insulin regimen to allow for dose equilibration and keep him on the NovoLog given as 6 units t.i.d. before meals as ordered. We will continue the Lantus given as 16 units subcu at bedtime daily as given. We will obtain serial chemistries and supplement accordingly as needed. We will follow. Brook Hernandez MD
[2018-01-12] MEDS: (Novolog) Insulin Aspart, Recombinant 100 u/ml 10 ml vial SC SCH ×7 (08:00→21:25)
[2018-01-12] MEDS: Divalproex 500 mg DR Tab PO SCH ×2 (10:46→17:14)
[2018-01-12] MEDS: Saccharomyces Boulardi 250 mg Cap PO SCH ×2 (10:46→17:09)
[2018-01-12] MEDS: Metoprolol Succinate 25 mg XL Tab PO SCH (10:46)
[2018-01-12] MEDS: Clotrimazole 1% Cream(30 gm) TOP SCH ×2 (10:54→17:19)
[2018-01-12] MEDS: Simethicone 80 mg Chewtab PO SCH ×2 (10:59→17:09)
[2018-01-12 12:54] LABS: BASO # 0.1 K/uL (0.0-0.2); BASO % 1.1 % (0.0-2.0); EOS # 0.2 K/uL (0.0-0.7); EOS % 2.3 % (0.0-4.0); HEMOGLOBIN 8.3 g/dL (12.0-18.0); LYMPH # 2.2 K/uL (1.0-4.3); LYMPH % 24.3 % (20.0-40.0); MEAN CELL VOLUME 95.2 fL (80.0-94.0); MEAN CORPUSCULAR HEMOGLOBIN 32.5 pg (27.0-31.0); MEAN CORPUSCULAR HGB CONC 34.1 g/dL (33.0-37.0); MEAN PLATELET VOLUME 7.7 fL (7.2-11.7); MONO # 0.5 K/uL (0.0-0.8); MONO % 5.7 % (0.0-10.0); NEUT # 5.9 K/uL (1.8-7.0); NEUT % 66.6 % (50.0-75.0); RBC 2.56 Mil/uL (4.40-5.90); RED CELL DISTRIBUTION WIDTH 13.9 % (11.5-14.5); WHITE BLOOD COUNT 8.9 K/uL (4.8-10.8)
[2018-01-12 13:17] LABS: ALB/GLOB RATIO 1.3 (1.0-2.1); ALBUMIN 3.2 g/dL (3.5-5.0); ALT/SGPT 26 U/L (21-72); AST/SGOT 32 U/L (17-59); BLOOD UREA NITROGEN 37 mg/dL (9-20); CALCIUM 8.2 mg/dl (8.6-10.4); GFR NON-AFRICAN AMERICAN 52
[2018-01-12] MEDS ORDERED: (Novolog) Insulin Aspart, Recombinant 100 u/ml 10 ml vial SC ONE (13:52)
[2018-01-12] MEDS ORDERED: Sodium Chloride 0.45% 1,000 ML IV ONE (13:53)
--- NOTE | 2018-01-12 14:03 | CP.PCM.PN ---
<Veronika Wynn - Last Filed: 01/12/18 14:15> Subjective - Date & Time of Evaluation Date of Evaluation: 01/12/18 Time of Evaluation: 14:00 - Subjective Subjective: Patient seen and examined at beside this morning. He denies chest pain, SOB, nausea, vomiting, diarrhea, abdominal pain. Patient states he had a BM last night that was soft. Objective - Vital Signs/Intake and Output Vital Signs (last 24 hours): Temp Pulse Resp BP Pulse Ox 98.0 F 81 20 134/71 96 01/12/18 09:20 01/12/18 09:20 01/12/18 09:20 01/12/18 09:20 01/12/18 09:20 Intake and Output: 01/12/18 01/12/18 06:59 18:59 Intake Total 750 Balance 750 - Medications Medications: Current Medications Amlodipine Besylate (Norvasc) 5 mg PO DAILY [facility] Last Admin: 01/12/18 10:45 Dose: 5 mg Aripiprazole (Abilify) 5 mg PO BID [facility] Last Admin: 01/12/18 10:46 Dose: 5 mg Aspirin (Ecotrin) 81 mg PO DAILY [facility] Last Admin: 01/12/18 10:45 Dose: 81 mg Clopidogrel Bisulfate (Plavix) 75 mg PO DAILY [facility] Last Admin: 01/12/18 10:46 Dose: 75 mg Clotrimazole (Lotrimin 1%) 1 gm TOP BID [facility] Last Admin: 01/12/18 10:54 Dose: 1 applic Divalproex Sodium (Depakote Dr) 500 mg PO BID [facility] Last Admin: 01/12/18 10:46 Dose: 500 mg Docusate Sodium (Colace) 100 mg PO BID [facility] Last Admin: 01/12/18 10:54 Dose: 100 mg Sodium Chloride (Sodium Chloride 0.45%) 1,000 mls @ 100 mls/hr IV .Q10H ONE Stop: 01/12/18 23:52 Insulin Aspart (Novolog) 0 unit SC ACHS [facility] Last Admin: 01/12/18 12:16 Dose: 4 units Insulin Aspart (Novolog) 4 unit SC AC [facility] Last Admin: 01/12/18 12:15 Dose: 4 units Insulin Glargine (Lantus) 10 unit SC HS [facility] Metoprolol Succinate (Toprol Xl) 25 mg PO DAILY [facility] Last Admin: 01/12/18 10:46 Dose: 25 mg Pregabalin (Lyrica) 75 mg PO TID [facility] Last Admin: 01/12/18 10:58 Dose: 75 mg Rosuvastatin Calcium (Crestor) 2.5 mg PO HS [facility] Last Admin: 01/11/18 22:08 Dose: 2.5 mg Saccharomyces Boulardii (Florastor) 250 mg PO BID [facility] Last Admin: 01/12/18 10:46 Dose: 250 mg Simethicone (Mylicon Chew Tab) 80 mg PO BID [facility] Last Admin: 01/12/18 10:59 Dose: 80 mg Sodium Polystyrene Sulfonate (Kayexalate Susp) 15 gm PO TID [facility] Trazodone HCl (Desyrel) 50 mg PO [facility] Last Admin: 01/11/18 22:08 Dose: 50 mg - Labs Labs: 01/12/18 12:41 01/12/18 12:41 - Constitutional Appears: Well, Non-toxic, Cachectic - Head Exam Head Exam: ATRAUMATIC, NORMAL INSPECTION - Eye Exam Eye Exam: EOMI - ENT Exam ENT Exam: Normal Exam - Neck Exam Neck Exam: Normal Inspection - Respiratory Exam Respiratory Exam: Clear to Ausculation Bilateral, NORMAL BREATHING PATTERN - Cardiovascular Exam Cardiovascular Exam: REGULAR RHYTHM. absent: Bradycardia, Tachycardia, Clicks, Diastolic murmur, Murmur - GI/Abdominal Exam GI & Abdominal Exam: Soft, Normal Bowel Sounds. absent: Bruit, Distended, Firm, Guarding, Rigid, Tenderness - Neurological Exam Neurological Exam: Alert, Awake - Psychiatric Exam Psychiatric exam: Normal Affect, Normal Mood - Skin Skin Exam: Dry, Intact, Normal Color, Warm Assessment and Plan - Assessment and Plan (Free Text) Assessment: Patient is a 57 year old male with PMH of dementia and DKA who was admitted to the ICU for treatment of DKA. Now on inpatient floor and hemodynamically stable. DKA has resolved. DKA (admitting diagnosis) and DM - Lantus 16 units SC QHS - Novolog 6 units SC AC - Accuchecks ACHS - Fluctuating glucose levels ranging from 200-370 before, now can be improved to 100s - Hgb A1c (12/27): 12.3 - Endocrinology, Dr. Hernandez consulted - evaluated pt 01/11. Per note, continue with lantus and novolog doses 16 and 6 as written above - Hypoglycemia protocol - Monitor Potassium with AM labs - Dr. Hernandez consulted for 01/12 critical value 528. RN consulted Dr. Hernandez and followed her insulin order of 4U. Repeat BNP ordered for 01/12 evening Hyperkalemia - K+: 5.8 01/11, called lab to ensure it is not hemolyzed before rx kayexalate ->- Kayexalate 30mg PO ONCE with duonebs, then ensure patient has BM to evacuate excess K -K+ increased to 6.5 01/12, pt given 3 doses of 15 mg kayelalate, RN called and aware, and also to give stat duonebs. -Await repeat BNP tonight 01/12 - Hold Lisinopril - EKG (01/07): NSR @ 72 bpm - Will continue to monitor CMP qAM and use kayexalate when needed JORGE L - BUN/Cr: 39/1.5 - downtrending - Start IVF: NS @ 50 mls/hr - Will encourage patient to drink more fluids - Continue to monitor HTN - Metoprolol 25mg PO QD - Norvasc 5mg PO QD - Hold Lisinopril - due to hyperkalemia. Not indicated to use ARB's due to risk of hyperkalemia CAD - ASA 81mg PO QD - Plavix 75mg PO QD - Metoprolol 25mg PO QD - Crestor 2.5mg PO QD Schizophrenia and bipolar disorder - Psychiatry, Dr. Delgado consulted - Abilify 5mg PO BID - Depakote 500 mg PO BID - Trazodone 50mg PO HS Normocytic Anemia - No active bleeding at this time - Continue to monitor CBC qAM History of seizures - Depakote 500 mg PO BID Neuropathic Pain - Likely secondary to diabetic pain - Lyrica 75 mg PO TID - DVT ppx: Heparin 5000 units SC Q8H - GI ppx: not indicated Disposition: Awaiting acceptance to [employer] [facility] care: Kaela Santos, pending for patient's to submit financial documents. Case discussed with Dr. Mian Wynn PGY-1 <Lashell Pappas V - Last Filed: 01/18/18 21:41> Objective - Vital Signs/Intake and Output Vital Signs (last 24 hours): Temp Pulse Resp BP Pulse Ox 98.9 F 73 20 153/74 H 99 01/17/18 15:30 01/17/18 15:30 01/17/18 15:30 01/17/18 15:30 01/17/18 15:30 - Labs Labs: 01/17/18 11:42 01/17/18 11:42 Assessment and Plan (1) DKA (diabetic ketoacidoses) Status: Acute (2) Dehydration Status: Acute (3) Diabetes mellitus Status: Acute (4) History of coronary artery disease Status: Acute (5) History of hypertension Status: Acute (6) History of schizophrenia Status: Acute (7) Prophylactic measure Status: Acute (8) Schizophrenia Status: Acute (9) UTI (lower urinary tract infection) Status: Acute (10) CAD (coronary artery disease) Status: Chronic (11) Diabetes mellitus type 2, insulin dependent Status: Chronic (12) HTN (hypertension) Status: Chronic Attending/Attestation - Attestation I have personally seen and examined this patient.: Yes I have fully participated in the care of the patient.: Yes I have reviewed all pertinent clinical information, including history, physical exam and plan: Yes Notes (Text): This is late computer entry for 01/12/18. Patient's potassium elevated; given three dose of Kayexlate. Insulin adjusted by furniture mechanic today and follow-up with resident noted. Patient is awaiting placement. Awaiting repeat blood work and sugar. Assessment/Plan 1. Diabetic Ketoacidosis, resolved Uncontrolled diabetes Assessment/Plan * Insulin sliding scale - low * Lantus 10 units SC QHS * Novolog 4 units SC AC * Accuchecks ACHS * Hgb A1c (12/27): 12.3 * Endocrinology, Dr. Hernandez consulted * Hypoglycemia protocol * Monitor Potassium with AM labs 2. Acute Renal Insufficiency Assessment/Plan * Monitor BUN/Cr * Will encourage patient to drink more fluids * Continue to monitor * Bladder US (12/27): no hydronephrosis. b/l echogenic kidneys compatible with medical renal disease. no echogenic shadowing renal stones noted. no bladder calculi, no intrinsic bladder pathology. 3. Hypertension Assessment/Plan * Metoprolol 25mg PO QD * Norvasc 5mg PO QD * Hold Lisinopril - due to hyperkalemia. Not indicated to use ARB's due to risk of hyperkalemia 4. Hyperkalemia Assessment/Plan * Given doses of Kayexlate today * Hold Lisinopril secondary to hyperkalemia * EKG: NSR @ 72 bpm * Will continue to monitor * F/u repeat blood work 5. Schizophrenia and bipolar disorder, and aggressive Behavior Assessment/Plan - Pschiatry, Dr. Delgado consulted - Abilify 5mg PO BID - Depakote 500 mg PO BID - Trazodone 50mg PO HS 6. Normocytic Anemia Assessment/Plan - No active bleeding at this time - Continue to monitor H & H 7. History of Coronary Artery Disease Assessment/Plan * ASA 81mg PO QDaily * Plavix 75mg PO QDaily * Metoprolol 25mg PO QDaily 8. Hyperlipidemia Assessment/Plan * Crestor 2.5mg PO QHS 9. History of seizures Assessment/Plan * Depakote 500 mg PO BID 10. Neuropathic Pain Assessment/Plan - Likely secondary diabetic pain - Lyrica 75 mg PO TID 11. Prophylaxis/diet: - Heparin 5000 units SC Q8H - Florastor 250 mg PO BID - Carbohydrate consistent diet Disposition: patient is medically stable. patient is awaiting placement. Per prior discussion with social and case management, it will difficult to place patient for discharge given prior occurrences.
[2018-01-12] MEDS ORDERED: (Novolin R) Insulin Human Regular 100 units/ml vial SC ONE (14:09)
[2018-01-12] MEDS ORDERED: Albuterol-Ipratrop 3 mg / 0.5 (3 ml) UD INH STA (14:16)
[2018-01-12] MEDS: Sod Polystyrene Sulf 15 gm/60 ml Susp PO SCH ×2 (14:25→17:08)
[2018-01-12 20:23] LABS: BLOOD UREA NITROGEN 36 mg/dL (9-20); CALCIUM 7.5 mg/dl (8.6-10.4); GFR NON-AFRICAN AMERICAN 57
[2018-01-12] MEDS: Rosuvastatin Calcium 2.5 mg Tab PO SCH (21:21)
[2018-01-12] MEDS ORDERED: (Lantus) Insulin Glargine, Recombinant SC SCH ×2 (22:00→22:13)
--- NOTE | 2018-01-13 03:29 | PN ---
DATE: 01/12/2018 ENDOCRINOLOGY FOLLOWUP NOTE LOCATION: Room 359. SUBJECTIVE: This is a 57-year-old male with recent uncontrolled type 2 insulin-requiring diabetes, now with extremes of glycemic fluctuations with initial symptomatic hypoglycemia yesterday and now overnight and today, has developed marked hyperglycemic accelerations as noted thereof. His lunch time glucose was actually 528 with a fasting glucose of 88 and a noontime glucose of 468 mg per dL. His latest glucose values, however, have improved, but still fluctuating and have ranged from 255-341 mg per dL. His latest chemistry showed a BUN of 37, sodium 134, potassium 6.5, chloride 101, CO2 of 37, and glucose 528 as mentioned. So at this time, we will modify once again his basal and bolus insulin regimen and increase the Lantus to 12 units subcutaneously at bedtime daily to start tonight. We will also increase his NovoLog to 6 units subcutaneously t.i.d. before meals to start tomorrow morning as ordered. We will titrate incremental as dictated to optimize metabolic control. We will obtain serial chemistries and supplement accordingly as needed. We will follow. Brook Hernandez MD
--- NOTE | 2018-01-13 05:44 | CP.PCM.PN ---
<Brit Beckford Y - Last Filed: 01/13/18 05:39> Subjective - Date & Time of Evaluation Date of Evaluation: 01/13/18 Time of Evaluation: 06:40 - Subjective Subjective: PGY-1 Medicine Progress Note for Dr. Pappas Patient was seen and examined today at bedside in no acute distress. Nurse reports no overnight events. Patient remains in good spirits and has no new complaints. Denies CP, SOB, n/v/c/d, headache, dizziness. Objective - Vital Signs/Intake and Output Vital Signs (last 24 hours): Temp Pulse Resp BP Pulse Ox 99.3 F 75 20 148/79 99 01/12/18 23:21 01/12/18 23:21 01/12/18 23:21 01/12/18 23:21 01/12/18 23:21 Intake and Output: 01/12/18 01/13/18 18:59 06:59 Intake Total 600 1200 Output Total 1000 Balance 600 200 - Medications Medications: Current Medications Amlodipine Besylate (Norvasc) 5 mg PO DAILY [facility] Last Admin: 01/12/18 10:45 Dose: 5 mg Aripiprazole (Abilify) 5 mg PO BID [facility] Last Admin: 01/12/18 17:14 Dose: 5 mg Aspirin (Ecotrin) 81 mg PO DAILY [facility] Last Admin: 01/12/18 10:45 Dose: 81 mg Clopidogrel Bisulfate (Plavix) 75 mg PO DAILY [facility] Last Admin: 01/12/18 10:46 Dose: 75 mg Clotrimazole (Lotrimin 1%) 1 gm TOP BID [facility] Last Admin: 01/12/18 17:19 Dose: 1 applic Divalproex Sodium (Depakote Dr) 500 mg PO BID [facility] Last Admin: 01/12/18 17:14 Dose: 500 mg Docusate Sodium (Colace) 100 mg PO BID [facility] Last Admin: 01/12/18 17:14 Dose: 100 mg Insulin Aspart (Novolog) 0 unit SC ACHS [facility] Last Admin: 01/12/18 21:25 Dose: 2 units Insulin Aspart (Novolog) 6 unit SC AC [facility] Insulin Glargine (Lantus) 12 unit SC HS [facility] Metoprolol Succinate (Toprol Xl) 25 mg PO DAILY [facility] Last Admin: 01/12/18 10:46 Dose: 25 mg Pregabalin (Lyrica) 75 mg PO TID [facility] Last Admin: 01/12/18 17:14 Dose: 75 mg Rosuvastatin Calcium (Crestor) 2.5 mg PO [facility] Last Admin: 01/12/18 21:21 Dose: 2.5 mg Saccharomyces Boulardii (Florastor) 250 mg PO BID [facility] Last Admin: 01/12/18 17:09 Dose: 250 mg Simethicone (Mylicon Chew Tab) 80 mg PO BID [facility] Last Admin: 01/12/18 17:09 Dose: 80 mg Sodium Polystyrene Sulfonate (Kayexalate Susp) 15 gm PO TID [facility] Last Admin: 01/12/18 17:08 Dose: 15 gm Trazodone HCl (Desyrel) 50 mg PO [facility] Last Admin: 01/12/18 21:21 Dose: 50 mg - Labs Labs: 01/12/18 12:41 01/12/18 19:45 - Constitutional Appears: Non-toxic, No Acute Distress - Head Exam Head Exam: ATRAUMATIC, NORMOCEPHALIC - Eye Exam Eye Exam: EOMI - ENT Exam ENT Exam: Mucous Membranes Moist Additional comments: poor dentition - Respiratory Exam Respiratory Exam: Clear to Ausculation Bilateral, NORMAL BREATHING PATTERN. absent: Rales, Rhonchi, Wheezes - Cardiovascular Exam Cardiovascular Exam: REGULAR RHYTHM, +S1, +S2. absent: Gallop, Rubs, Murmur - GI/Abdominal Exam GI & Abdominal Exam: Soft, Normal Bowel Sounds. absent: Distended, Firm, Guarding, Tenderness - Extremities Exam Extremities Exam: Normal Capillary Refill. absent: Calf Tenderness, Pedal Edema - Neurological Exam Neurological Exam: Alert, Awake. absent: Oriented x3 - Psychiatric Exam Psychiatric exam: Normal Affect, Normal Mood - Skin Skin Exam: Dry, Intact, Normal Color, Warm Assessment and Plan - Assessment and Plan (Free Text) Assessment: Patient is a 57 year old male with PMH of dementia and DKA who was admitted to [facility] ICU for treatment of DKA. Now on inpatient floor and hemodynamically stable. DKA has resolved. Plan: DKA - resolved, DM - Lantus 16 units SC QHS - Novolog 6 units SC AC - Accuchecks ACHS - Fluctuating glucose levels ranging from 200-370 before, now can be improved to 100s - Hgb A1c (12/27): 12.3 - Endocrinology, Dr. Hernandez consulted - evaluated pt 01/11. Per note, continue with lantus and novolog doses 16 and 6 as written above - Hypoglycemia protocol - Monitor Potassium with AM labs Hyperkalemia - K+: 5.8 01/11, called lab to ensure it is not hemolyzed before rx kayexalate ->- Kayexalate 30mg PO ONCE with duonebs, then ensure patient has BM to evacuate excess K -K+ increased to 6.5 01/12, pt given 3 doses of 15 mg kayelalate, RN called and aware, and also to give stat duonebs. Given 4u insulin. BNP dropped to 4.8 - Hold Lisinopril - EKG (01/07): NSR @ 72 bpm - Will continue to monitor CMP qAM and use kayexalate when needed JORGE L - BUN/Cr: 39/1.5 - downtrending - Start IVF: NS @ 50 mls/hr - Will encourage patient to drink more fluids - Continue to monitor HTN - Metoprolol 25mg PO QD - Norvasc 5mg PO QD - Hold Lisinopril - due to hyperkalemia. Not indicated to use ARB's due to risk of hyperkalemia CAD - ASA 81mg PO QD - Plavix 75mg PO QD - Metoprolol 25mg PO QD - Crestor 2.5mg PO QD Schizophrenia and bipolar disorder - Psychiatry, Dr. Delgado consulted - Abilify 5mg PO BID - Depakote 500 mg PO BID - Trazodone 50mg PO HS Normocytic Anemia - No active bleeding at this time - Continue to monitor CBC qAM History of seizures - Depakote 500 mg PO BID Neuropathic Pain - Likely secondary to diabetic pain - Lyrica 75 mg PO TID PPx - DVT ppx: Heparin 5000 units SC Q8H - GI ppx: not indicated Disposition: Awaiting acceptance to [facility] principal care: Kaela Santos, pending for patient's to submit financial documents. Brit Beckford PGY-1 <Lashell Pappas V - Last Filed: 01/13/18 09:23> Objective - Vital Signs/Intake and Output Vital Signs (last 24 hours): Temp Pulse Resp BP Pulse Ox 98.8 F 75 20 148/79 99 11/10/18 05:30 01/12/18 23:21 01/12/18 23:21 01/12/18 23:21 01/12/18 23:21 Intake and Output: 01/13/18 01/13/18 06:59 18:59 Intake Total 1700 Output Total 1000 Balance 700 - Medications Medications: Current Medications Amlodipine Besylate (Norvasc) 5 mg PO DAILY [facility] Last Admin: 01/12/18 10:45 Dose: 5 mg Aripiprazole (Abilify) 5 mg PO BID [facility] Last Admin: 01/12/18 17:14 Dose: 5 mg Aspirin (Ecotrin) 81 mg PO DAILY [facility] Last Admin: 01/12/18 10:45 Dose: 81 mg Clopidogrel Bisulfate (Plavix) 75 mg PO DAILY [facility] Last Admin: 01/12/18 10:46 Dose: 75 mg Clotrimazole (Lotrimin 1%) 1 gm TOP BID [facility] Last Admin: 01/12/18 17:19 Dose: 1 applic Divalproex Sodium (Depakote Dr) 500 mg PO BID [facility] Last Admin: 01/12/18 17:14 Dose: 500 mg Docusate Sodium (Colace) 100 mg PO BID [facility] Last Admin: 01/12/18 17:14 Dose: 100 mg Insulin Aspart (Novolog) 0 unit SC ACHS [facility] Last Admin: 01/13/18 07:50 Dose: Not Given Insulin Aspart (Novolog) 6 unit SC AC [facility] Last Admin: 01/13/18 07:56 Dose: 6 units Insulin Glargine (Lantus) 12 unit SC HS [facility] Metoprolol Succinate (Toprol Xl) 25 mg PO DAILY [facility] Last Admin: 01/12/18 10:46 Dose: 25 mg Pregabalin (Lyrica) 75 mg PO TID [facility] Last Admin: 01/12/18 17:14 Dose: 75 mg Rosuvastatin Calcium (Crestor) 2.5 mg PO [facility] Last Admin: 01/12/18 21:21 Dose: 2.5 mg Saccharomyces Boulardii (Florastor) 250 mg PO BID [facility] Last Admin: 01/12/18 17:09 Dose: 250 mg Simethicone (Mylicon Chew Tab) 80 mg PO BID [facility] Last Admin: 01/12/18 17:09 Dose: 80 mg Sodium Polystyrene Sulfonate (Kayexalate Susp) 15 gm PO DAILY [facility] Trazodone HCl (Desyrel) 50 mg PO HS [facility] Last Admin: 01/12/18 21:21 Dose: 50 mg - Labs Labs: 01/13/18 07:06 01/13/18 07:06 Assessment and Plan (1) DKA (diabetic ketoacidoses) Status: Acute (2) Dehydration Status: Acute (3) Diabetes mellitus Status: Acute (4) History of coronary artery disease Status: Acute (5) History of hypertension Status: Acute (6) History of schizophrenia Status: Acute (7) Prophylactic measure Status: Acute (8) Schizophrenia Status: Acute (9) UTI (lower urinary tract infection) Status: Acute (10) CAD (coronary artery disease) Status: Chronic (11) Diabetes mellitus type 2, insulin dependent Status: Chronic (12) HTN (hypertension) Status: Chronic Attending/Attestation - Attestation I have personally seen and examined this patient.: Yes I have fully participated in the care of the patient.: Yes I have reviewed all pertinent clinical information, including history, physical exam and plan: Yes Notes (Text): Patient seen, examined, and case discussed with day-time resident. Patient seen this morning. Patient is resting comfortably. In no acute distress. Patient's potassium is borderline hyperkalemia; started on metcalf Kayexlate. Abdirahman alvarado had bowel movement yesterday., Discussed with case management yesterday, they were working with [facility] for [facility] placement for discharge planning. Social and case management on the case. Assessment/Plan 1. Diabetic Ketoacidosis, resolved Uncontrolled diabetes Assessment/Plan * Insulin sliding scale - low * Lantus 16 units SC QHS * Novolog 6 units SC AC * Accuchecks ACHS * Hgb A1c (12/27): 12.3 * Endocrinology, Dr. Hernandez consulted * Hypoglycemia protocol * Monitor Potassium with AM labs 2. Acute Renal Insufficiency Assessment/Plan * Monitor BUN/Cr * Will encourage patient to drink more fluids * Continue to monitor * Bladder US (12/27): no hydronephrosis. b/l echogenic kidneys compatible with medical renal disease. no echogenic shadowing renal stones noted. no bladder calculi, no intrinsic bladder pathology. 3. Hypertension Assessment/Plan * Metoprolol 25mg PO QD * Norvasc 5mg PO QD * Hold Lisinopril - due to hyperkalemia. Not indicated to use ARB's due to risk of hyperkalemia 4. Hyperkalemia Assessment/Plan * Hold Lisinopril secondary to hyperkalemia * EKG: NSR @ 72 bpm * Will continue to monitor * Daily Kayexlate 5. Schizophrenia and bipolar disorder, and aggressive Behavior Assessment/Plan * Psychiatry, Dr. Delgado consulted * Abilify 5mg PO BID * Depakote 500 mg PO BID * Trazodone 50mg PO HS 6. Normocytic Anemia Assessment/Plan * No active bleeding at this time * Continue to monitor H & H 7. History of Coronary Artery Disease Assessment/Plan * ASA 81mg PO QDaily * Plavix 75mg PO QDaily * Metoprolol 25mg PO QDaily 8. Hyperlipidemia Assessment/Plan * Crestor 2.5mg PO QHS 9. History of seizures Assessment/Plan * Depakote 500 mg PO BID 10. Neuropathic Pain Assessment/Plan * Likely secondary diabetic pain * Lyrica 75 mg PO TID 11. Prophylaxis/diet: * Heparin 5000 units SC Q8H * Florastor 250 mg PO BID * Carbohydrate consistent diet Disposition: patient is medically stable. patient is awaiting placement. Patient's behavior controlled with optimization of psychiatric medications. Case and social are working with for discharge placement.
[2018-01-13 07:26] LABS: BASO # 0.1 K/uL (0.0-0.2); BASO % 0.8 % (0.0-2.0); EOS # 0.2 K/uL (0.0-0.7); EOS % 2.4 % (0.0-4.0); HEMOGLOBIN 8.3 g/dL (12.0-18.0); LYMPH # 2.8 K/uL (1.0-4.3); LYMPH % 34.1 % (20.0-40.0); MEAN CELL VOLUME 93.4 fL (80.0-94.0); MEAN CORPUSCULAR HGB CONC 34.3 g/dL (33.0-37.0); MEAN PLATELET VOLUME 7.7 fL (7.2-11.7); MONO # 0.6 K/uL (0.0-0.8); MONO % 6.9 % (0.0-10.0); NEUT # 4.5 K/uL (1.8-7.0); NEUT % 55.8 % (50.0-75.0); NRBC % 0.1 % (0.0-2.0); RBC 2.57 Mil/uL (4.40-5.90); RED CELL DISTRIBUTION WIDTH 13.6 % (11.5-14.5); WHITE BLOOD COUNT 8.1 K/uL (4.8-10.8)
[2018-01-13 07:49] LABS: ALB/GLOB RATIO 1.2 (1.0-2.1); ALT/SGPT 25 U/L (21-72); AST/SGOT 29 U/L (17-59); BLOOD UREA NITROGEN 36 mg/dL (9-20); CALCIUM 8.5 mg/dl (8.6-10.4); GFR NON-AFRICAN AMERICAN 57
[2018-01-13] MEDS: (Novolog) Insulin Aspart, Recombinant 100 u/ml 10 ml vial SC SCH ×7 (07:50→22:06)
[2018-01-13] MEDS: Divalproex 500 mg DR Tab PO SCH ×2 (10:29→18:32)
[2018-01-13] MEDS: Metoprolol Succinate 25 mg XL Tab PO SCH (10:29)
[2018-01-13] MEDS: Saccharomyces Boulardi 250 mg Cap PO SCH ×2 (10:29→18:32)
[2018-01-13] MEDS: Sod Polystyrene Sulf 15 gm/60 ml Susp PO SCH (10:30)
[2018-01-13] MEDS: Simethicone 80 mg Chewtab PO SCH ×2 (10:30→18:32)
[2018-01-13] MEDS: Clotrimazole 1% Cream(30 gm) TOP SCH ×2 (10:42→18:47)
--- NOTE | 2018-01-13 14:11 | PN ---
DATE: 01/13/2018 ENDOCRINOLOGY FOLLOWUP NOTE LOCATION: In room 359. SUBJECTIVE: This is a 57-year-old male with recent uncontrolled type 2 insulin-requiring diabetes, now being followed closely for metabolic management. His glycemic levels are fluctuating as noted overnight with glucose levels ranging from 302 to 341 mg/dL. LABORATORY DATA: His chemistries today showed a BUN of 36, sodium 138, potassium 5.1, chloride 105, CO2 of 27, glucose 265, and creatinine 1.3. ASSESSMENT AND PLAN: Once again we will modify his basal and bolus insulin regimen to optimize metabolic control. We will increase the Lantus to 14 units subcutaneously at bedtime daily to start tonight. We will continue the low dose correction scale using NovoLog insulin to obviate hypoglycemia and detailed orders have been given. We will also continue the low dose prandial insulin given as NovoLog at 6 units t.i.d. before meals as ordered. We will obtain serial chemistries and supplement accordingly as needed. We will follow. Brook Hernandez MD
[2018-01-13] MEDS: Rosuvastatin Calcium 2.5 mg Tab PO SCH (22:05)
[2018-01-13] MEDS: (Lantus) Insulin Glargine, Recombinant SC SCH (22:05)
--- NOTE | 2018-01-14 02:11 | CP.PCM.PN ---
<Brit Beckford Y - Last Filed: 01/14/18 02:09> Subjective - Date & Time of Evaluation Date of Evaluation: 01/14/18 Time of Evaluation: 06:55 - Subjective Subjective: PGY-1 Medicine Progress Note for Dr. Alvarado Patient was seen and examined today at bedside in no acute distress. Nurse reports no overnight events. Patient remains in good spirits and has no new complaints. Denies CP, SOB, n/v/c/d, headache, dizziness. Shows no facial twitching, chest tightness, other symptomology. Objective - Vital Signs/Intake and Output Vital Signs (last 24 hours): Temp Pulse Resp BP Pulse Ox 98.8 F 81 20 151/84 H 98 01/14/18 00:25 01/14/18 00:25 01/14/18 00:25 01/14/18 00:25 01/14/18 00:25 Intake and Output: 01/13/18 01/14/18 18:59 06:59 Intake Total 500 500 Balance 500 500 - Medications Medications: Current Medications Amlodipine Besylate (Norvasc) 5 mg PO DAILY [facility] Last Admin: 01/13/18 10:29 Dose: 5 mg Aripiprazole (Abilify) 5 mg PO BID [facility] Last Admin: 01/13/18 18:31 Dose: 5 mg Aspirin (Ecotrin) 81 mg PO DAILY [facility] Last Admin: 01/13/18 10:29 Dose: 81 mg Clopidogrel Bisulfate (Plavix) 75 mg PO DAILY [facility] Last Admin: 01/13/18 10:29 Dose: 75 mg Clotrimazole (Lotrimin 1%) 1 gm TOP BID [facility] Last Admin: 01/13/18 18:47 Dose: 1 applic Divalproex Sodium (Depakote Dr) 500 mg PO BID [facility] Last Admin: 01/13/18 18:32 Dose: 500 mg Docusate Sodium (Colace) 100 mg PO BID [facility] Last Admin: 01/13/18 18:32 Dose: 100 mg Insulin Aspart (Novolog) 0 unit SC ACHS [facility] Last Admin: 01/13/18 22:06 Dose: Not Given Insulin Aspart (Novolog) 6 unit SC AC [facility] Last Admin: 01/13/18 18:32 Dose: 6 units Insulin Glargine (Lantus) 14 unit SC HS [facility] Last Admin: 01/13/18 22:05 Dose: 14 units Metoprolol Succinate (Toprol Xl) 25 mg PO DAILY [facility] Last Admin: 01/13/18 10:29 Dose: 25 mg Pregabalin (Lyrica) 75 mg PO TID [facility] Last Admin: 01/13/18 18:32 Dose: 75 mg Rosuvastatin Calcium (Crestor) 2.5 mg PO HS [facility] Last Admin: 01/13/18 22:05 Dose: 2.5 mg Saccharomyces Boulardii (Florastor) 250 mg PO BID [facility] Last Admin: 01/13/18 18:32 Dose: 250 mg Simethicone (Mylicon Chew Tab) 80 mg PO BID [facility] Last Admin: 01/13/18 18:32 Dose: 80 mg Sodium Polystyrene Sulfonate (Kayexalate Susp) 15 gm PO DAILY [facility] Last Admin: 01/13/18 10:30 Dose: 15 gm Trazodone HCl (Desyrel) 50 mg PO HS [facility] Last Admin: 01/13/18 22:05 Dose: 50 mg - Labs Labs: 01/13/18 07:06 01/13/18 07:06 - Constitutional Appears: Non-toxic, No Acute Distress - Head Exam Head Exam: ATRAUMATIC, NORMOCEPHALIC - Eye Exam Eye Exam: EOMI - ENT Exam ENT Exam: Mucous Membranes Moist Additional comments: poor dentition - Respiratory Exam Respiratory Exam: Clear to Ausculation Bilateral, NORMAL BREATHING PATTERN. absent: Rales, Rhonchi, Wheezes - Cardiovascular Exam Cardiovascular Exam: REGULAR RHYTHM, +S1, +S2. absent: Gallop, Rubs, Murmur - GI/Abdominal Exam GI & Abdominal Exam: Soft, Normal Bowel Sounds. absent: Distended, Firm, Guarding - Extremities Exam Extremities Exam: Normal Capillary Refill. absent: Calf Tenderness, Pedal Edema - Neurological Exam Neurological Exam: Alert, Awake. absent: Oriented x3 - Psychiatric Exam Psychiatric exam: Normal Affect, Normal Mood - Skin Skin Exam: Dry, Intact, Normal Color, Warm Assessment and Plan - Assessment and Plan (Free Text) Assessment: Patient is a 57 year old male with PMH of dementia and DKA who was admitted to the ICU for treatment of DKA. Now on inpatient floor and hemodynamically stable. DKA has resolved. Plan: DKA - resolved, DM - Lantus 16 units SC QHS - Novolog 6 units SC AC - Accuchecks ACHS - Fluctuating glucose levels ranging from 200-370 before, now can be improved to 100s - Hgb A1c (12/27): 12.3 - Endocrinology, Dr. Hernandez consulted - evaluated pt 01/11. Per note, continue with lantus and novolog doses 16 and 6 as written above - Hypoglycemia protocol - Monitor Potassium with AM labs Hyperkalemia - K+: 5.8 01/11, called lab to ensure it is not hemolyzed before rx kayexalate ->- Kayexalate 30mg PO ONCE with duonebs, then ensure patient has BM to evacuate excess K -K+ increased to 6.5 01/12, pt given 3 doses of 15 mg kayelalate, RN called and aware, and also to give stat duonebs. Given 4u insulin. BNP dropped to 4.8 - Hold Lisinopril - EKG (01/07): NSR @ 72 bpm - Will continue to monitor CMP qAM and use kayexalate when needed JORGE L - BUN/Cr: 39/1.5 - downtrending - Start IVF: NS @ 50 mls/hr - Will encourage patient to drink more fluids - Continue to monitor HTN - Metoprolol 25mg PO QD - Norvasc 5mg PO QD - Hold Lisinopril - due to hyperkalemia. Not indicated to use ARB's due to risk of hyperkalemia CAD - ASA 81mg PO QD - Plavix 75mg PO QD - Metoprolol 25mg PO QD - Crestor 2.5mg PO QD Schizophrenia and bipolar disorder - Psychiatry, Dr. Delgado consulted - Abilify 5mg PO BID - Depakote 500 mg PO BID - Trazodone 50mg PO HS Normocytic Anemia - No active bleeding at this time - Continue to monitor CBC qAM History of seizures - Depakote 500 mg PO BID Neuropathic Pain - Likely secondary to diabetic pain - Lyrica 75 mg PO TID PPx - DVT ppx: Heparin 5000 units SC Q8H - GI ppx: not indicated Disposition: Awaiting acceptance to [facility] care: Kaela Santos, pending for patient's to submit financial documents. <Derrell Alvarado - Last Filed: 01/14/18 16:01> Objective - Vital Signs/Intake and Output Vital Signs (last 24 hours): Temp Pulse Resp BP Pulse Ox 99.1 F 74 20 165/80 H 98 01/14/18 07:58 01/14/18 07:58 01/14/18 07:58 01/14/18 07:58 01/14/18 07:58 Intake and Output: 01/14/18 01/14/18 06:59 18:59 Intake Total 800 600 Balance 800 600 - Medications Medications: Current Medications Amlodipine Besylate (Norvasc) 5 mg PO DAILY [facility] Last Admin: 01/14/18 09:20 Dose: 5 mg Aripiprazole (Abilify) 5 mg PO BID [facility] Last Admin: 01/14/18 09:21 Dose: 5 mg Aspirin (Ecotrin) 81 mg PO DAILY [facility] Last Admin: 01/14/18 09:20 Dose: 81 mg Clopidogrel Bisulfate (Plavix) 75 mg PO DAILY [facility] Last Admin: 01/14/18 09:21 Dose: 75 mg Clotrimazole (Lotrimin 1%) 1 gm TOP BID [facility] Last Admin: 01/14/18 09:19 Dose: 1 applic Divalproex Sodium (Depakote Dr) 500 mg PO BID [facility] Last Admin: 01/14/18 09:22 Dose: 500 mg Docusate Sodium (Colace) 100 mg PO BID [facility] Last Admin: 01/14/18 09:52 Dose: 100 mg Insulin Aspart (Novolog) 0 unit SC ACHS [facility] Last Admin: 01/14/18 12:06 Dose: Not Given Insulin Aspart (Novolog) 8 unit SC AC [facility] Last Admin: 01/14/18 12:30 Dose: 8 units Insulin Glargine (Lantus) 14 unit SC HS [facility] Last Admin: 01/13/18 22:05 Dose: 14 units Metoprolol Succinate (Toprol Xl) 25 mg PO DAILY [facility] Last Admin: 01/14/18 09:20 Dose: 25 mg Pregabalin (Lyrica) 75 mg PO TID [facility] Last Admin: 01/14/18 13:34 Dose: 75 mg Rosuvastatin Calcium (Crestor) 2.5 mg PO HS [facility] Last Admin: 01/13/18 22:05 Dose: 2.5 mg Saccharomyces Boulardii (Florastor) 250 mg PO BID [facility] Last Admin: 01/14/18 09:20 Dose: 250 mg Simethicone (Mylicon Chew Tab) 80 mg PO BID [facility] Last Admin: 01/14/18 09:21 Dose: 80 mg Sodium Polystyrene Sulfonate (Kayexalate Susp) 15 gm PO DAILY [facility] Last Admin: 01/14/18 09:21 Dose: 15 gm Trazodone HCl (Desyrel) 50 mg PO HS [facility] Last Admin: 01/13/18 22:05 Dose: 50 mg - Labs Labs: 01/14/18 09:19 01/14/18 13:19 Attending/Attestation - Attestation I have personally seen and examined this patient.: Yes I have fully participated in the care of the patient.: Yes I have reviewed all pertinent clinical information, including history, physical exam and plan: Yes Notes (Text): noted to have hyperkalemia with K of 6.0 today; given Kayexalate and moved his bowels repeated chemistry with K of 5.0. Will continue to monitor
[2018-01-14] MEDS: (Novolog) Insulin Aspart, Recombinant 100 u/ml 10 ml vial SC SCH ×7 (07:54→21:46)
[2018-01-14] MEDS: Clotrimazole 1% Cream(30 gm) TOP SCH ×2 (09:19→17:28)
[2018-01-14] MEDS: Metoprolol Succinate 25 mg XL Tab PO SCH (09:20)
[2018-01-14] MEDS: Saccharomyces Boulardi 250 mg Cap PO SCH ×2 (09:20→17:24)
[2018-01-14] MEDS: Simethicone 80 mg Chewtab PO SCH ×2 (09:21→17:24)
[2018-01-14] MEDS: Sod Polystyrene Sulf 15 gm/60 ml Susp PO SCH (09:21)
[2018-01-14] MEDS: Divalproex 500 mg DR Tab PO SCH ×2 (09:22→17:24)
[2018-01-14 09:32] LABS: BASO # 0.1 K/uL (0.0-0.2); BASO % 1.1 % (0.0-2.0); EOS # 0.3 K/uL (0.0-0.7); EOS % 2.8 % (0.0-4.0); HEMOGLOBIN 8.2 g/dL (12.0-18.0); LYMPH # 2.4 K/uL (1.0-4.3); LYMPH % 27.5 % (20.0-40.0); MEAN CORPUSCULAR HEMOGLOBIN 32.6 pg (27.0-31.0); MEAN CORPUSCULAR HGB CONC 34.7 g/dL (33.0-37.0); MEAN PLATELET VOLUME 7.6 fL (7.2-11.7); MONO # 0.5 K/uL (0.0-0.8); MONO % 6.1 % (0.0-10.0); NEUT # 5.5 K/uL (1.8-7.0); NEUT % 62.5 % (50.0-75.0); RBC 2.52 Mil/uL (4.40-5.90); RED CELL DISTRIBUTION WIDTH 13.6 % (11.5-14.5); WHITE BLOOD COUNT 8.8 K/uL (4.8-10.8)
[2018-01-14 09:46] LABS: ALB/GLOB RATIO 1.1 (1.0-2.1); ALBUMIN 3.2 g/dL (3.5-5.0); ALT/SGPT 25 U/L (21-72); AST/SGOT 49 U/L (17-59); BLOOD UREA NITROGEN 38 mg/dL (9-20); CALCIUM 8.5 mg/dl (8.6-10.4); GFR NON-AFRICAN AMERICAN 57
[2018-01-14] MEDS ORDERED: Sod Polystyrene Sulf 15 gm/60 ml Susp PO ONE (10:20)
--- NOTE | 2018-01-14 13:50 | PN ---
DATE: 01/14/2018 ENDO FOLLOWUP NOTE LOCATION: Room 359. SUBJECTIVE: This is a 57-year-old male with recent uncontrolled type 2 insulin-requiring diabetes, now being followed closely for metabolic management. His glycemic level is once again fluctuating as noted overnight and glucose levels have ranged from 265 to 302 and 341 mg/dL. LABORATORY DATA: His chemistries today showed a BUN of 38, sodium 135, potassium 6, chloride 104, CO2 of 21, glucose 265, and creatinine 1.3. ASSESSMENT AND PLAN: So, at this time, we will modify once again his basal and bolus insulin regimen and increase the Lantus to 14 units subcutaneous at bedtime daily to start tonight. We will increase and titrate his NovoLog to a dose of 8 units subcutaneous t.i.d. before meals to start today. We will obtain serial chemistries and supplement accordingly as needed. We will follow. Brook Hernandez MD
[2018-01-14 13:51] LABS: BLOOD UREA NITROGEN 36 mg/dL (9-20); CALCIUM 8.2 mg/dl (8.6-10.4); GFR NON-AFRICAN AMERICAN 57
[2018-01-14] MEDS: Rosuvastatin Calcium 2.5 mg Tab PO SCH (21:45)
[2018-01-14] MEDS: (Lantus) Insulin Glargine, Recombinant SC SCH (21:47)
[2018-01-15] MEDS: (Novolog) Insulin Aspart, Recombinant 100 u/ml 10 ml vial SC SCH ×7 (07:47→21:34)
[2018-01-15] MEDS: Divalproex 500 mg DR Tab PO SCH ×2 (10:02→18:01)
[2018-01-15] MEDS: Sod Polystyrene Sulf 15 gm/60 ml Susp PO SCH (10:02)
[2018-01-15] MEDS: Saccharomyces Boulardi 250 mg Cap PO SCH ×2 (10:02→18:01)
[2018-01-15] MEDS: Simethicone 80 mg Chewtab PO SCH ×2 (10:03→18:01)
[2018-01-15] MEDS: Clotrimazole 1% Cream(30 gm) TOP SCH ×2 (10:04→18:11)
[2018-01-15] MEDS: Metoprolol Succinate 25 mg XL Tab PO SCH (10:08)
--- NOTE | 2018-01-15 11:36 | CP.PCM.PN ---
<Veronika Wynn - Last Filed: 01/15/18 15:32> Subjective - Date & Time of Evaluation Date of Evaluation: 01/15/18 Time of Evaluation: 11:34 - Subjective Subjective: Patient seen and examined at bedside. He continues to deny chest pain, SOB, nausea, vomiting, diarrhea. Patient had a BM last night that was soft. Objective - Vital Signs/Intake and Output Vital Signs (last 24 hours): Temp Pulse Resp BP Pulse Ox 98.2 F 72 20 170/92 H 99 01/15/18 08:00 01/15/18 08:00 01/15/18 08:00 01/15/18 08:00 01/15/18 08:00 Intake and Output: 01/15/18 01/15/18 06:59 18:59 Intake Total 450 Balance 450 - Medications Medications: Current Medications Amlodipine Besylate (Norvasc) 10 mg PO Q24H [facility] Aripiprazole (Abilify) 5 mg PO BID [facility] Last Admin: 01/15/18 10:03 Dose: 5 mg Aspirin (Ecotrin) 81 mg PO DAILY [facility] Last Admin: 01/15/18 10:03 Dose: 81 mg Clopidogrel Bisulfate (Plavix) 75 mg PO DAILY [facility] Last Admin: 01/15/18 10:03 Dose: 75 mg Clotrimazole (Lotrimin 1%) 1 gm TOP BID [facility] Last Admin: 01/15/18 10:04 Dose: 1 applic Divalproex Sodium (Depakote Dr) 500 mg PO BID [facility] Last Admin: 01/15/18 10:02 Dose: 500 mg Docusate Sodium (Colace) 100 mg PO BID [facility] Last Admin: 01/15/18 10:03 Dose: 100 mg Insulin Aspart (Novolog) 0 unit SC ACHS [facility] Last Admin: 01/15/18 07:47 Dose: Not Given Insulin Aspart (Novolog) 8 unit SC AC [facility] Last Admin: 01/15/18 08:08 Dose: 8 units Insulin Glargine (Lantus) 14 unit SC HS [facility] Last Admin: 01/14/18 21:47 Dose: Not Given Metoprolol Succinate (Toprol Xl) 25 mg PO DAILY [facility] Last Admin: 01/15/18 10:08 Dose: 25 mg Pregabalin (Lyrica) 75 mg PO TID [facility] Last Admin: 01/15/18 10:02 Dose: 75 mg Rosuvastatin Calcium (Crestor) 2.5 mg PO HS [facility] Last Admin: 01/14/18 21:45 Dose: 2.5 mg Saccharomyces Boulardii (Florastor) 250 mg PO BID [facility] Last Admin: 01/15/18 10:02 Dose: 250 mg Simethicone (Mylicon Chew Tab) 80 mg PO BID [facility] Last Admin: 01/15/18 10:03 Dose: 80 mg Sodium Polystyrene Sulfonate (Kayexalate Susp) 15 gm PO DAILY [facility] Last Admin: 01/15/18 10:02 Dose: 15 gm Trazodone HCl (Desyrel) 50 mg PO HS [facility] Last Admin: 01/14/18 21:45 Dose: 50 mg - Labs Labs: 01/14/18 09:19 01/14/18 13:19 - Constitutional Appears: Well, Older Than Stated Age, Cachectic - Head Exam Head Exam: ATRAUMATIC, NORMAL INSPECTION - Eye Exam Eye Exam: EOMI, Normal appearance - Neck Exam Neck Exam: Normal Inspection - Respiratory Exam Respiratory Exam: Clear to Ausculation Bilateral, NORMAL BREATHING PATTERN - Cardiovascular Exam Cardiovascular Exam: REGULAR RHYTHM - Neurological Exam Neurological Exam: Alert, Awake - Psychiatric Exam Psychiatric exam: Normal Affect, Normal Mood - Skin Skin Exam: Dry, Intact, Normal Color, Warm Assessment and Plan - Assessment and Plan (Free Text) Assessment: Patient is a 57 year old male with PMH of dementia and DKA who was admitted to the ICU for treatment of DKA. Now on inpatient floor and hemodynamically stable. DKA has resolved. DKA - resolved, DM - Lantus 16 units SC QHS - Novolog 6 units SC AC - Accuchecks ACHS - Fluctuating glucose levels ranging from 200-370 before, now can be improved to 100s - Hgb A1c (12/27): 12.3 - Endocrinology, Dr. Hernandez consulted - evaluated pt 01/11. Per note, continue with lantus and novolog doses 16 and 6 as written above - Hypoglycemia protocol - Monitor Potassium with AM labs Hyperkalemia - K+: 5.8 01/11, called lab to ensure it is not hemolyzed before rx kayexalate ->- Kayexalate 30mg PO ONCE with duonebs, then ensure patient has BM to evacuate excess K -K+ increased to 6.5 01/12, pt given 3 doses of 15 mg kayelalate, RN called and aware, and also to give stat duonebs. Given 4u insulin. BNP dropped to 4.8 - Hold Lisinopril - EKG (01/07): NSR @ 72 bpm - Will continue to monitor CMP qAM and use kayexalate when needed JORGE L - BUN/Cr: 39/1.5 - downtrending - Start IVF: NS @ 50 mls/hr - Will encourage patient to drink more fluids - Continue to monitor HTN - Metoprolol 25mg PO QD - Norvasc 5mg PO QD - Hold Lisinopril - due to hyperkalemia. Not indicated to use ARB's due to risk of hyperkalemia CAD - ASA 81mg PO QD - Plavix 75mg PO QD - Metoprolol 25mg PO QD - Crestor 2.5mg PO QD Schizophrenia and bipolar disorder - Psychiatry, Dr. Delgado consulted - Abilify 5mg PO BID - Depakote 500 mg PO BID - Trazodone 50mg PO HS Normocytic Anemia - No active bleeding at this time - Continue to monitor CBC qAM History of seizures - Depakote 500 mg PO BID Neuropathic Pain - Likely secondary to diabetic pain - Lyrica 75 mg PO TID PPx - DVT ppx: Heparin 5000 units SC Q8H - GI ppx: not indicated Disposition: [facility] <Raymond Wong - Last Filed: 01/19/18 20:43> Objective - Vital Signs/Intake and Output Vital Signs (last 24 hours): Temp Pulse Resp BP Pulse Ox 98.9 F 73 20 153/74 H 99 01/17/18 15:30 01/17/18 15:30 01/17/18 15:30 01/17/18 15:30 01/17/18 15:30 - Labs Labs: 01/17/18 11:42 01/17/18 11:42 Attending/Attestation - Attestation I have personally seen and examined this patient.: Yes I have fully participated in the care of the patient.: Yes I have reviewed all pertinent clinical information, including history, physical exam and plan: Yes Notes (Text): 01/19/18 20:42 This is a late entry. Care of this patient was gone over in detail with resident Dr. Lashanda Wynn. Raymond Wong D.O.
--- NOTE | 2018-01-15 18:21 | PN ---
DATE: 01/15/2018 LOCATION: Room 359. SUBJECTIVE: This is a 57-year-old male with recent uncontrolled type 2 insulin-requiring diabetes, now being followed closely for metabolic management. Once again, his oral intake is variable but improved with extremes of glycemic fluctuations as noted overnight. The glucose values today have ranged from 236 to 241 mg/dL. It was 63 at bedtime last night. PLAN: So at this time, we will modify once again his basal and bolus insulin regimen and lower the Novolog to 8 units t.i.d. before meals to start today. We will continue the Lantus at the lower dose of 14 units subcu at bedtime daily as given. We will obtain serial chemistries and supplement accordingly as needed. We will follow. Brook Hernandez MD
[2018-01-15] MEDS: (Lantus) Insulin Glargine, Recombinant SC SCH (21:33)
[2018-01-15] MEDS: Rosuvastatin Calcium 2.5 mg Tab PO SCH (21:33)
[2018-01-16 06:59] LABS: BASO # 0.1 K/uL (0.0-0.2); EOS # 0.2 K/uL (0.0-0.7); EOS % 2.6 % (0.0-4.0); HEMOGLOBIN 8.6 g/dL (12.0-18.0); LYMPH # 1.9 K/uL (1.0-4.3); LYMPH % 22.3 % (20.0-40.0); MEAN CELL VOLUME 92.9 fL (80.0-94.0); MEAN CORPUSCULAR HEMOGLOBIN 32.3 pg (27.0-31.0); MEAN CORPUSCULAR HGB CONC 34.7 g/dL (33.0-37.0); MEAN PLATELET VOLUME 7.7 fL (7.2-11.7); MONO # 0.6 K/uL (0.0-0.8); MONO % 6.7 % (0.0-10.0); NEUT # 5.7 K/uL (1.8-7.0); NEUT % 67.4 % (50.0-75.0); RBC 2.65 Mil/uL (4.40-5.90); RED CELL DISTRIBUTION WIDTH 13.4 % (11.5-14.5); WHITE BLOOD COUNT 8.4 K/uL (4.8-10.8)
[2018-01-16 08:13] LABS: ALB/GLOB RATIO 1.2 (1.0-2.1); ALBUMIN 3.2 g/dL (3.5-5.0); CALCIUM 9.1 mg/dl (8.6-10.4)
[2018-01-16] MEDS: (Novolog) Insulin Aspart, Recombinant 100 u/ml 10 ml vial SC SCH ×7 (08:29→21:04)
[2018-01-16] MEDS: Simethicone 80 mg Chewtab PO SCH ×2 (09:15→17:26)
[2018-01-16] MEDS: Sod Polystyrene Sulf 15 gm/60 ml Susp PO SCH (09:15)
[2018-01-16] MEDS: Saccharomyces Boulardi 250 mg Cap PO SCH ×2 (09:15→17:26)
[2018-01-16] MEDS: Divalproex 500 mg DR Tab PO SCH ×2 (09:15→17:26)
[2018-01-16] MEDS: Metoprolol Succinate 25 mg XL Tab PO SCH (09:15)
[2018-01-16] MEDS: Clotrimazole 1% Cream(30 gm) TOP SCH ×2 (09:17→17:25)
--- NOTE | 2018-01-16 13:27 | CP.PCM.DIS ---
<Veronika Wynn - Last Filed: 01/16/18 15:40> Provider - Provider Date of Admission: 12/27/17 15:35 Attending physician: Raymond Wong MD Primary care physician: Jimenez Consults: Endo: Cam, Psych: Ozden, Palliative: Dragona Time Spent in preparation of Discharge (in minutes): 45 Hospital Course - Lab Results Lab Results: Micro Results 12/27/17 17:46 Blood Blood Culture - Final NO GROWTH AFTER 5 DAYS 12/27/17 17:46 Blood Gram Stain - Final TEST NOT PERFORMED 12/27/17 16:48 Blood Blood Culture - Final NO GROWTH AFTER 5 DAYS 12/27/17 16:48 Blood Gram Stain - Final TEST NOT PERFORMED 12/28/17 17:47 Nose MRSA Culture - Final MRSA NOT DETECTED 12/27/17 17:24 Naris MRSA Culture (Admit) - Final MRSA NOT DETECTED 12/27/17 16:41 Urine,Clean Catch Urine Culture - Final No Growth (<1,000 CFU/ML) Most Recent Lab Values WBC 8.4 K/uL (4.8-10.8) 01/16/18 06:53 RBC 2.65 Mil/uL (4.40-5.90) L 01/16/18 06:53 Hgb 8.6 g/dL (12.0-18.0) L 01/16/18 06:53 Hct 24.6 % (35.0-51.0) L 01/16/18 06:53 MCV 92.9 fL (80.0-94.0) 01/16/18 06:53 MCH 32.3 pg (27.0-31.0) H 01/16/18 06:53 MCHC 34.7 g/dL (33.0-37.0) 01/16/18 06:53 RDW 13.4 % (11.5-14.5) 01/16/18 06:53 Plt Count 261 K/uL (130-400) 01/16/18 06:53 MPV 7.7 fL (7.2-11.7) 01/16/18 06:53 Neut % (Auto) 67.4 % (50.0-75.0) 01/16/18 06:53 Lymph % (Auto) 22.3 % (20.0-40.0) 01/16/18 06:53 [place] % (Auto) 6.7 % (0.0-10.0) 01/16/18 06:53 Eos % (Auto) 2.6 % (0.0-4.0) 01/16/18 06:53 Baso % (Auto) 1.0 % (0.0-2.0) 01/16/18 06:53 Neut # (Auto) 5.7 K/uL (1.8-7.0) 01/16/18 06:53 Lymph # (Auto) 1.9 K/uL (1.0-4.3) 01/16/18 06:53 [place] # (Auto) 0.6 K/uL (0.0-0.8) 01/16/18 06:53 Eos # (Auto) 0.2 K/uL (0.0-0.7) 01/16/18 06:53 Baso # (Auto) 0.1 K/uL (0.0-0.2) 01/16/18 06:53 Puncture Site Rr 12/27/17 02:45 pCO2 16 mm/Hg (35-45) L* 12/27/17 02:45 pO2 125 mm/Hg (80-100) H 12/27/17 02:45 HCO3 9.5 mmol/L (21-28) L* 12/27/17 02:45 ABG pH 7.19 (7.35-7.45) L* 12/27/17 02:45 ABG Total CO2 6.6 mmol/L (22-28) L 12/27/17 02:45 ABG O2 Saturation 99.2 % (95-98) H 12/27/17 02:45 ABG Base Excess -19.8 mmol/L (-2.0-3.0) L 12/27/17 02:45 Artis Test Pos 12/27/17 02:45 ABG Potassium 4.9 mmol/L (3.6-5.2) 12/27/17 02:45 Sodium 132.0 mmol/l (132-148) 12/27/17 02:45 Chloride 95.0 mmol/L (98-107) L 12/27/17 02:45 Glucose > 750 mg/dl (75-110) H* D 12/27/17 02:45 Lactate 1.9 mmol/L (0.7-2.1) 12/27/17 02:45 Crit Value Called To Dr zhang 12/27/17 02:45 Crit Value Called By Ginny meyer 12/27/17 02:45 Crit Value Read Back Y 12/27/17 02:45 Blood Gas Notified Time 1555 12/27/17 02:45 Sodium 136 mmol/L (132-148) 01/16/18 06:53 Potassium 4.8 mmol/L (3.6-5.2) 01/16/18 06:53 Chloride 101 mmol/L (98-107) 01/16/18 06:53 Carbon Dioxide 28 mmol/L (22-30) 01/16/18 06:53 Anion Gap 12 (10-20) 01/16/18 06:53 BUN 40 mg/dL (9-20) H 01/16/18 06:53 Creatinine 1.7 mg/dL (0.8-1.5) H 01/16/18 06:53 Est GFR ( Amer) 50 01/16/18 06:53 Est GFR (Non-Af Amer) 42 01/16/18 06:53 POC Glucose (mg/dL) 226 mg/dL (65-110) H 01/16/18 11:38 Random Glucose 305 mg/dL (75-110) H 01/16/18 06:53 Hemoglobin A1c 12.3 % (4.2-6.5) H D 12/27/17 14:27 Calcium 9.1 mg/dl (8.6-10.4) 01/16/18 06:53 Phosphorus 3.9 mg/dL (2.5-4.5) 01/12/18 12:41 Magnesium 2.1 mg/dL (1.6-2.3) 01/12/18 12:41 Total Bilirubin 0.2 mg/dL (0.2-1.3) 01/16/18 06:53 AST 27 U/L (17-59) 01/16/18 06:53 ALT 24 U/L (21-72) 01/16/18 06:53 Alkaline Phosphatase 70 U/L (38-126) 01/16/18 06:53 Total Protein 5.8 g/dL (6.3-8.3) L 01/16/18 06:53 Albumin 3.2 g/dL (3.5-5.0) L 01/16/18 06:53 Globulin 2.6 gm/dL (2.2-3.9) 01/16/18 06:53 Albumin/Globulin Ratio 1.2 (1.0-2.1) 01/16/18 06:53 Lipase 151 U/L (23-300) 12/27/17 14:27 Arterial Blood Potassium 4.9 mmol/L (3.6-5.2) 12/27/17 02:45 Urine Color Yellow (YELLOW) 12/27/17 15:11 Urine Clarity Clear (Clear) 12/27/17 15:11 Urine pH 5.0 (5.0-8.0) 12/27/17 15:11 Ur Specific [place] 1.020 (1.003-1.030) 12/27/17 15:11 Urine Protein Negative mg/dL (NEGATIVE) 12/27/17 15:11 Urine Glucose (UA) 3+ mg/dL (Normal) H 12/27/17 15:11 Urine Ketones 1+ mg/dL (NEGATIVE) H 12/27/17 15:11 Urine Blood 1+ (NEGATIVE) H 12/27/17 15:11 Urine Nitrate Negative (NEGATIVE) 12/27/17 15:11 Urine Bilirubin Negative (NEGATIVE) 12/27/17 15:11 Urine Urobilinogen Normal mg/dL (0.2-1.0) 12/27/17 15:11 Ur Leukocyte Esterase Neg William/uL (Negative) 12/27/17 15:11 Urine WBC (Auto) 1 /hpf (0-5) 12/27/17 15:11 Urine RBC (Auto) 4 /hpf (0-3) H 12/27/17 15:11 Ur Squamous Epith Cells < 1 /hpf (0-5) 12/27/17 15:11 Urine Opiates Screen Negative (NEGATIVE) 12/27/17 15:11 Urine Methadone Screen Negative (NEGATIVE) 12/27/17 15:11 Ur Barbiturates Screen Negative (NEGATIVE) 12/27/17 15:11 Valproic Acid 15.6 ug/mL (50.0-100.0) L 12/30/17 11:32 Ur Phencyclidine Scrn Negative (NEGATIVE) 12/27/17 15:11 Ur Amphetamines Screen Negative (NEGATIVE) 12/27/17 15:11 U Benzodiazepines Scrn Negative (NEGATIVE) 12/27/17 15:11 U Oth Cocaine Metabols Negative (NEGATIVE) 12/27/17 15:11 U Cannabinoids Screen Negative (NEGATIVE) 12/27/17 15:11 Alcohol, Quantitative < 10 mg/dl (0-10) 12/27/17 14:27 B-Hydroxybutyrate > 6.00 mM (0.02-0.27) H 12/27/17 18:08 - Hospital Course Hospital Course: On admission: Patient is a 57 yo male with dementia and multiple hospitalizations due to DKA who presented to the ED with elevated blood glucose and AMS. Patient is unable to provide history 2/2 to lethargic state as well as baseline dementia. Information is obtained from prior records. Patient has a history of chronic noncompliance. His most recent hospitalization was last month for DKA. There have been discussions with the patient's regarding correction placement, which she did not want to pursue. Patient was set up with visiting nursing services during a previous admission. On discharge: Patient admitted for DKA; he also with extensive history of hospitalization due to DKA. Patient also with frequent hyperkalemia that has been intermittently treated with kayexalate. His DM has been followed by Dr. 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 It can be labile depending on how much juice patient drinks as well. Patient remains stable and afebrile on the medicine floor without telemetry since admission on 12/27. Psych also consulted due to his schizophrenia vs. bipolar disorder. Patient with hisstory of noncompliance. There have been discussions with patient's with correction care placement, which is why patient has been hospitalized here for an extended perioud of time. Finally, case management confirmed that [facility] has accepted him as a resident on Monday 01/15. *above is just a summary of hospital events. Please see complete medical record for details. Patient instructions: Patient is stable for transfer to [facility] when bed is available. Please medication reconcilition for medications to continue at [facility]. Please note that the Clotramizole Cream is to be applied to the right upper arm rash. Please note that his blood pressure medication was adjusted on 01/15/18 so please give a few days before adjusting again: Norvasc 10 mg PO 1x/day at bedtime 10 PM and Metoprolol XL 25 mg PO 1x/day at 10 AM. Thank you! Raymond Wong D.O. *Please return to the emergency room if you have increasing chest pain, shortness of breath, Patient agrees to the above. - Date & Time of H&P Date of H&P: 01/16/18 Time of H&P: 15:44 Discharge Exam - Head Exam Head Exam: ATRAUMATIC, NORMAL INSPECTION - Eye Exam Eye Exam: EOMI, Normal appearance - Respiratory Exam Respiratory Exam: Clear to PA & Lateral, NORMAL BREATHING PATTERN, UNREMARKABLE - Cardiovascular Exam Cardiovascular Exam: REGULAR RHYTHM. absent: Bradycardia, Tachycardia, Clicks, Diastolic murmur, Systolic Murmur - GI/Abdominal Exam GI & Abdominal Exam: Normal Bowel Sounds, Unremarkable - Extremities Exam Extremities exam: normal capillary refill, normal inspection Additional comments: strong peripheral pulses, no peripheral edema - Neurological Exam Neurological exam: Alert - Psychiatric Exam Psychiatric exam: Normal Affect, Normal Mood - Skin Skin Exam: Dry, Intact, Normal Color, Warm Discharge Plan - Follow Up Plan Condition: FAIR Disposition: TRANSF TO SNF Instructions: Heart Failure, Adult (DC), Diabetic Ketoacidosis (DC) Additional Instructions: Patient is stable for transfer to [facility] when bed is available. Please medication reconcilition for medications to continue at [facility]. Please note that the Clotramizole Cream is to be applied to the right upper arm rash. Please note that his blood pressure medication was adjusted on 01/15/18 so please give a few days before adjusting again: Norvasc 10 mg PO 1x/day at bedtime 10 PM and Metoprolol XL 25 mg PO 1x/day at 10 AM. Thank you! Raymond Wong D.O. <Raymond Wong - Last Filed: 01/19/18 20:43> Provider - Provider Date of Admission: 12/27/17 15:35 Attending physician: Raymond Wong MD Time Spent in preparation of Discharge (in minutes): 40 Hospital Course - Lab Results Lab Results: Micro Results 12/27/17 17:46 Blood Blood Culture - Final NO GROWTH AFTER 5 DAYS 12/27/17 17:46 Blood Gram Stain - Final TEST NOT PERFORMED 12/27/17 16:48 Blood Blood Culture - Final NO GROWTH AFTER 5 DAYS 12/27/17 16:48 Blood Gram Stain - Final TEST NOT PERFORMED 12/28/17 17:47 Nose MRSA Culture - Final MRSA NOT DETECTED 12/27/17 17:24 Naris MRSA Culture (Admit) - Final MRSA NOT DETECTED 12/27/17 16:41 Urine,Clean Catch Urine Culture - Final No Growth (<1,000 CFU/ML) Most Recent Lab Values WBC 8.1 K/uL (4.8-10.8) 01/17/18 11:42 RBC 2.55 Mil/uL (4.40-5.90) L 01/17/18 11:42 Hgb 8.3 g/dL (12.0-18.0) L 01/17/18 11:42 Hct 23.7 % (35.0-51.0) L 01/17/18 11:42 MCV 92.9 fL (80.0-94.0) 01/17/18 11:42 MCH 32.5 pg (27.0-31.0) H 01/17/18 11:42 MCHC 35.0 g/dL (33.0-37.0) 01/17/18 11:42 RDW 13.3 % (11.5-14.5) 01/17/18 11:42 Plt Count 247 K/uL (130-400) 01/17/18 11:42 MPV 7.9 fL (7.2-11.7) 01/17/18 11:42 Neut % (Auto) 68.5 % (50.0-75.0) 01/17/18 11:42 Lymph % (Auto) 20.1 % (20.0-40.0) 01/17/18 11:42 [place] % (Auto) 8.0 % (0.0-10.0) 01/17/18 11:42 Eos % (Auto) 2.7 % (0.0-4.0) 01/17/18 11:42 Baso % (Auto) 0.7 % (0.0-2.0) 01/17/18 11:42 Neut # (Auto) 5.6 K/uL (1.8-7.0) 01/17/18 11:42 Lymph # (Auto) 1.6 K/uL (1.0-4.3) 01/17/18 11:42 [place] # (Auto) 0.6 K/uL (0.0-0.8) 01/17/18 11:42 Eos # (Auto) 0.2 K/uL (0.0-0.7) 01/17/18 11:42 Baso # (Auto) 0.1 K/uL (0.0-0.2) 01/17/18 11:42 Puncture Site Rr 12/27/17 02:45 pCO2 16 mm/Hg (35-45) L* 12/27/17 02:45 pO2 125 mm/Hg (80-100) H 12/27/17 02:45 HCO3 9.5 mmol/L (21-28) L* 12/27/17 02:45 ABG pH 7.19 (7.35-7.45) L* 12/27/17 02:45 ABG Total CO2 6.6 mmol/L (22-28) L 12/27/17 02:45 ABG O2 Saturation 99.2 % (95-98) H 12/27/17 02:45 ABG Base Excess -19.8 mmol/L (-2.0-3.0) L 12/27/17 02:45 Artis Test Pos 12/27/17 02:45 ABG Potassium 4.9 mmol/L (3.6-5.2) 12/27/17 02:45 Sodium 132.0 mmol/l (132-148) 12/27/17 02:45 Chloride 95.0 mmol/L (98-107) L 12/27/17 02:45 Glucose > 750 mg/dl (75-110) H* D 12/27/17 02:45 Lactate 1.9 mmol/L (0.7-2.1) 12/27/17 02:45 Crit Value Called To Dr zhang 12/27/17 02:45 Crit Value Called By Ginny meyer 12/27/17 02:45 Crit Value Read Back Y 12/27/17 02:45 Blood Gas Notified Time 1555 12/27/17 02:45 Sodium 135 mmol/L (132-148) 01/17/18 11:42 Potassium 5.2 mmol/L (3.6-5.2) 01/17/18 11:42 Chloride 97 mmol/L (98-107) L 01/17/18 11:42 Carbon Dioxide 27 mmol/L (22-30) 01/17/18 11:42 Anion Gap 16 (10-20) 01/17/18 11:42 BUN 38 mg/dL (9-20) H 01/17/18 11:42 Creatinine 1.4 mg/dL (0.8-1.5) 01/17/18 11:42 Est GFR ( Amer) > 60 01/17/18 11:42 Est GFR (Non-Af Amer) 52 01/17/18 11:42 POC Glucose (mg/dL) 481 mg/dL (65-110) H* 01/17/18 21:17 Random Glucose 323 mg/dL (75-110) H 01/17/18 11:42 Hemoglobin A1c 12.3 % (4.2-6.5) H D 12/27/17 14:27 Calcium 8.6 mg/dl (8.6-10.4) 01/17/18 11:42 Phosphorus 3.9 mg/dL (2.5-4.5) 01/12/18 12:41 Magnesium 2.1 mg/dL (1.6-2.3) 01/12/18 12:41 Total Bilirubin 0.2 mg/dL (0.2-1.3) 01/17/18 11:42 AST 23 U/L (17-59) 01/17/18 11:42 ALT 22 U/L (21-72) 01/17/18 11:42 Alkaline Phosphatase 66 U/L (38-126) 01/17/18 11:42 Total Protein 5.8 g/dL (6.3-8.3) L 01/17/18 11:42 Albumin 3.2 g/dL (3.5-5.0) L 01/17/18 11:42 Globulin 2.6 gm/dL (2.2-3.9) 01/17/18 11:42 Albumin/Globulin Ratio 1.2 (1.0-2.1) 01/17/18 11:42 Lipase 151 U/L (23-300) 12/27/17 14:27 Arterial Blood Potassium 4.9 mmol/L (3.6-5.2) 12/27/17 02:45 Urine Color Yellow (YELLOW) 12/27/17 15:11 Urine Clarity Clear (Clear) 12/27/17 15:11 Urine pH 5.0 (5.0-8.0) 12/27/17 15:11 Ur Specific [place] 1.020 (1.003-1.030) 12/27/17 15:11 Urine Protein Negative mg/dL (NEGATIVE) 12/27/17 15:11 Urine Glucose (UA) 3+ mg/dL (Normal) H 12/27/17 15:11 Urine Ketones 1+ mg/dL (NEGATIVE) H 12/27/17 15:11 Urine Blood 1+ (NEGATIVE) H 12/27/17 15:11 Urine Nitrate Negative (NEGATIVE) 12/27/17 15:11 Urine Bilirubin Negative (NEGATIVE) 12/27/17 15:11 Urine Urobilinogen Normal mg/dL (0.2-1.0) 12/27/17 15:11 Ur Leukocyte Esterase Neg William/uL (Negative) 12/27/17 15:11 Urine WBC (Auto) 1 /hpf (0-5) 12/27/17 15:11 Urine RBC (Auto) 4 /hpf (0-3) H 12/27/17 15:11 Ur Squamous Epith Cells < 1 /hpf (0-5) 12/27/17 15:11 Urine Opiates Screen Negative (NEGATIVE) 12/27/17 15:11 Urine Methadone Screen Negative (NEGATIVE) 12/27/17 15:11 Ur Barbiturates Screen Negative (NEGATIVE) 12/27/17 15:11 Valproic Acid 15.6 ug/mL (50.0-100.0) L 12/30/17 11:32 Ur Phencyclidine Scrn Negative (NEGATIVE) 12/27/17 15:11 Ur Amphetamines Screen Negative (NEGATIVE) 12/27/17 15:11 U Benzodiazepines Scrn Negative (NEGATIVE) 12/27/17 15:11 U Oth Cocaine Metabols Negative (NEGATIVE) 12/27/17 15:11 U Cannabinoids Screen Negative (NEGATIVE) 12/27/17 15:11 Alcohol, Quantitative < 10 mg/dl (0-10) 12/27/17 14:27 B-Hydroxybutyrate > 6.00 mM (0.02-0.27) H 12/27/17 18:08 Attending/Attestation - Attestation I have personally seen and examined this patient.: Yes I have fully participated in the care of the patient.: Yes I have reviewed all pertinent clinical information, including history, physical exam and plan: Yes Notes (Text): 01/19/18 20:43 This is a late entry. Care of this patient was gone over in detail with resident Dr. Lashanda Wynn. Raymond Wong D.O.
[2018-01-16] MEDS: Aritificial Tears (15ml) OU SCH ×2 (13:47→17:28)
--- NOTE | 2018-01-16 15:58 | PN ---
DATE: 01/16/2018 ENDOCRINOLOGY FOLLOWUP NOTE LOCATION: In room 359. SUBJECTIVE: This is a 57-year-old male with recent uncontrolled type 2 insulin-requiring diabetes, now being followed closely for metabolic management. Once again, he has developed supervening hyperglycemic accelerations overnight, with glucose levels ranging from 261 to 307 mg/dL. LABORATORY DATA: His chemistry showed a BUN of 40, sodium 136, potassium 4.8, chloride 101, CO2 of 28, glucose 305, and creatinine 1.7. ASSESSMENT AND PLAN: So at this time, we will modify once again his basal insulin and increase the Lantus to 16 units subcutaneous at bedtime daily, to start tonight. We will continue the low-dose correction scale using NovoLog insulin as given. We will also continue the same prandial insulin given as NovoLog at 8 units t.i.d. before meals because of the variability of his oral intake and high predilection for symptomatic hypoglycemia. We will obtain serial chemistries and supplement accordingly as needed. We will follow. Brook Hernandez MD
[2018-01-16] MEDS: Rosuvastatin Calcium 2.5 mg Tab PO SCH (21:02)
[2018-01-16] MEDS ORDERED: (Lantus) Insulin Glargine, Recombinant SC SCH (22:00)
[2018-01-17 00:27] VITALS: O2SAT 99
--- NOTE | 2018-01-17 07:51 | CP.PCM.PN ---
<Veronika Wynn - Last Filed: 01/17/18 07:49> Subjective - Date & Time of Evaluation Date of Evaluation: 01/17/18 Time of Evaluation: 07:49 - Subjective Subjective: Patient still here today 01/17 since he failed bedcheck last night. Per SW note insurance not accepting him despite [facility] accepting him. Patient this morning wonders when he can leave. Denies chest pain, SOB, n/v/d. Patient had BM last night. Objective - Vital Signs/Intake and Output Vital Signs (last 24 hours): Temp Pulse Resp BP Pulse Ox 98.1 F 73 20 160/88 H 99 01/17/18 00:26 01/17/18 00:26 01/17/18 00:26 01/17/18 00:26 01/17/18 00:26 Intake and Output: 01/17/18 01/17/18 06:59 18:59 Intake Total 360 Balance 360 - Medications Medications: Current Medications Amlodipine Besylate (Norvasc) 10 mg PO Q24H [facility] [place] Last Admin: 01/16/18 21:03 Dose: 10 mg Aripiprazole (Abilify) 5 mg PO BID [facility] [place] Last Admin: 01/16/18 17:26 Dose: 5 mg Artificial Tears (Artificial Tears) 0 ml OU BID [facility] [place] Last Admin: 01/16/18 17:28 Dose: 2 drop Aspirin (Ecotrin) 81 mg PO DAILY [facility] [place] Last Admin: 01/16/18 09:15 Dose: 81 mg Clopidogrel Bisulfate (Plavix) 75 mg PO DAILY [facility] [place] Last Admin: 01/16/18 09:15 Dose: 75 mg Clotrimazole (Lotrimin 1%) 1 gm TOP BID [facility] Last Admin: 01/16/18 17:25 Dose: 1 applic Divalproex Sodium (Depakote Dr) 500 mg PO BID [facility] [place] Last Admin: 01/16/18 17:26 Dose: 500 mg Docusate Sodium (Colace) 100 mg PO BID [facility] [place] Last Admin: 01/16/18 17:26 Dose: 100 mg Insulin Aspart (Novolog) 0 unit SC ACHS [facility] [place] Last Admin: 01/16/18 21:04 Dose: Not Given Insulin Aspart (Novolog) 8 unit SC AC [facility] [place] Last Admin: 01/16/18 17:27 Dose: 8 units Insulin Glargine (Lantus) 16 unit SC HS [facility] [place] Last Admin: 01/16/18 21:04 Dose: 16 units Metoprolol Succinate (Toprol Xl) 25 mg PO DAILY [facility] [place] Last Admin: 01/16/18 09:15 Dose: 25 mg Pregabalin (Lyrica) 75 mg PO TID [facility] [place] Last Admin: 01/16/18 17:27 Dose: 75 mg Rosuvastatin Calcium (Crestor) 2.5 mg PO [facility] Last Admin: 01/16/18 21:02 Dose: 2.5 mg Saccharomyces Boulardii (Florastor) 250 mg PO BID [facility] [place] Last Admin: 01/16/18 17:26 Dose: 250 mg Simethicone (Mylicon Chew Tab) 80 mg PO BID [facility] [place] Last Admin: 01/16/18 17:26 Dose: 80 mg Sodium Polystyrene Sulfonate (Kayexalate Susp) 15 gm PO DAILY [facility] Last Admin: 01/16/18 09:15 Dose: 15 gm Trazodone HCl (Desyrel) 50 mg PO [facility] Last Admin: 01/16/18 21:03 Dose: 50 mg - Labs Labs: 01/16/18 06:53 01/16/18 06:53 - Head Exam Head Exam: ATRAUMATIC, NORMAL INSPECTION - Eye Exam Eye Exam: EOMI, Normal appearance - Neck Exam Neck Exam: Normal Inspection - Respiratory Exam Respiratory Exam: Clear to Ausculation Bilateral, NORMAL BREATHING PATTERN. absent: Rales, Rhonchi, Wheezes - Cardiovascular Exam Cardiovascular Exam: REGULAR RHYTHM. absent: Diastolic murmur, Murmur - GI/Abdominal Exam GI & Abdominal Exam: Soft, Normal Bowel Sounds. absent: Firm, Guarding, Rigid, Tenderness, Rebound - Back Exam Back Exam: NORMAL INSPECTION - Neurological Exam Neurological Exam: Alert, Awake - Psychiatric Exam Psychiatric exam: Normal Affect, Normal Mood - Skin Skin Exam: Dry, Intact, Normal Color, Warm Assessment and Plan - Assessment and Plan (Free Text) Assessment: Patient is a 57 year old male with PMH of dementia and DKA who was admitted to the ICU for treatment of DKA. Now on inpatient floor and hemodynamically stable. DKA has resolved. DKA - resolved, DM - Lantus 16 units SC QHS - Novolog 6 units SC AC - Accuchecks ACHS - Fluctuating glucose levels ranging from 200-370 before, now can be improved to 100s - Hgb A1c (12/27): 12.3 - Endocrinology, Dr. Hernandez consulted - evaluated pt 01/11. Per note, continue with lantus and novolog doses 16 and 6 as written above - Hypoglycemia protocol - Monitor Potassium with AM labs Hyperkalemia - K+: 5.8 01/11, called lab to ensure it is not hemolyzed before rx kayexalate ->- Kayexalate 30mg PO ONCE with duonebs, then ensure patient has BM to evacuate excess K -K+ increased to 6.5 01/12, pt given 3 doses of 15 mg kayelalate, RN called and aware, and also to give stat duonebs. Given 4u insulin. BNP dropped to 4.8 - Hold Lisinopril - EKG (01/07): NSR @ 72 bpm - Will continue to monitor CMP qAM and use kayexalate when needed JORGE L - BUN/Cr: 39/1.5 - downtrending - Start IVF: NS @ 50 mls/hr - Will encourage patient to drink more fluids - Continue to monitor HTN - Metoprolol 25mg PO QD - Norvasc 5mg PO QD - Hold Lisinopril - due to hyperkalemia. Not indicated to use ARB's due to risk of hyperkalemia CAD - ASA 81mg PO QD - Plavix 75mg PO QD - Metoprolol 25mg PO QD - Crestor 2.5mg PO QD Schizophrenia and bipolar disorder - Psychiatry, Dr. Delgado consulted - Abilify 5mg PO BID - Depakote 500 mg PO BID - Trazodone 50mg PO HS Normocytic Anemia - No active bleeding at this time - Continue to monitor CBC qAM History of seizures - Depakote 500 mg PO BID Neuropathic Pain - Likely secondary to diabetic pain - Lyrica 75 mg PO TID PPx - DVT ppx: Heparin 5000 units SC Q8H - GI ppx: not indicated Disposition: Awaiting acceptance to [facility] care with insurance approval <Raymond Wong - Last Filed: 01/19/18 20:44> Objective - Vital Signs/Intake and Output Vital Signs (last 24 hours): Temp Pulse Resp BP Pulse Ox 98.9 F 73 20 153/74 H 99 01/17/18 15:30 01/17/18 15:30 01/17/18 15:30 01/17/18 15:30 01/17/18 15:30 - Labs Labs: 01/17/18 11:42 01/17/18 11:42 Attending/Attestation - Attestation I have personally seen and examined this patient.: Yes I have fully participated in the care of the patient.: Yes I have reviewed all pertinent clinical information, including history, physical exam and plan: Yes Notes (Text): 01/19/18 20:43 This is a late entry. Care of this patient and discharge instructions were gone over in detail with resident Dr. Lashanda Wynn. Raymond Wong D.O.
[2018-01-17] MEDS: (Novolog) Insulin Aspart, Recombinant 100 u/ml 10 ml vial SC SCH ×7 (08:17→21:27)
[2018-01-17] MEDS: Saccharomyces Boulardi 250 mg Cap PO SCH ×2 (10:02→17:11)
[2018-01-17] MEDS: Divalproex 500 mg DR Tab PO SCH (10:02)
[2018-01-17] MEDS: Metoprolol Succinate 25 mg XL Tab PO SCH (10:03)
[2018-01-17] MEDS: Aritificial Tears (15ml) OU SCH ×2 (10:03→17:30)
[2018-01-17] MEDS: Sod Polystyrene Sulf 15 gm/60 ml Susp PO SCH (10:04)
[2018-01-17] MEDS: Simethicone 80 mg Chewtab PO SCH ×2 (10:07→17:11)
[2018-01-17] MEDS: Clotrimazole 1% Cream(30 gm) TOP SCH ×2 (10:57→17:33)
[2018-01-17 11:54] LABS: BASO # 0.1 K/uL (0.0-0.2); BASO % 0.7 % (0.0-2.0); EOS # 0.2 K/uL (0.0-0.7); EOS % 2.7 % (0.0-4.0); HEMOGLOBIN 8.3 g/dL (12.0-18.0); LYMPH # 1.6 K/uL (1.0-4.3); LYMPH % 20.1 % (20.0-40.0); MEAN CELL VOLUME 92.9 fL (80.0-94.0); MEAN CORPUSCULAR HEMOGLOBIN 32.5 pg (27.0-31.0); MEAN PLATELET VOLUME 7.9 fL (7.2-11.7); MONO # 0.6 K/uL (0.0-0.8); NEUT # 5.6 K/uL (1.8-7.0); NEUT % 68.5 % (50.0-75.0); RBC 2.55 Mil/uL (4.40-5.90); RED CELL DISTRIBUTION WIDTH 13.3 % (11.5-14.5); WHITE BLOOD COUNT 8.1 K/uL (4.8-10.8)
[2018-01-17 13:20] LABS: ALB/GLOB RATIO 1.2 (1.0-2.1); ALBUMIN 3.2 g/dL (3.5-5.0); AST/SGOT 23 U/L (17-59); BLOOD UREA NITROGEN 38 mg/dL (9-20); CALCIUM 8.6 mg/dl (8.6-10.4); GFR NON-AFRICAN AMERICAN 52
[2018-01-17 13:21] LABS: ALT/SGPT 22 U/L (21-72)
--- NOTE | 2018-01-17 13:58 | CP.PCM.DIS ---
<Veronika Wynn - Last Filed: 01/17/18 13:56> Provider - Provider Date of Admission: 12/27/17 15:35 Attending physician: Raymond Wong MD Primary care physician: Jimenez Consults: Endocrinology - [place], Psych - [place], Palliative - [place] Time Spent in preparation of Discharge (in minutes): 45 Hospital Course - Lab Results Lab Results: Micro Results 12/27/17 17:46 Blood Blood Culture - Final NO GROWTH AFTER 5 DAYS 12/27/17 17:46 Blood Gram Stain - Final TEST NOT PERFORMED 12/27/17 16:48 Blood Blood Culture - Final NO GROWTH AFTER 5 DAYS 12/27/17 16:48 Blood Gram Stain - Final TEST NOT PERFORMED 12/28/17 17:47 Nose MRSA Culture - Final MRSA NOT DETECTED 12/27/17 17:24 Naris MRSA Culture (Admit) - Final MRSA NOT DETECTED 12/27/17 16:41 Urine,Clean Catch Urine Culture - Final No Growth (<1,000 CFU/ML) Most Recent Lab Values WBC 8.1 K/uL (4.8-10.8) 01/17/18 11:42 RBC 2.55 Mil/uL (4.40-5.90) L 01/17/18 11:42 Hgb 8.3 g/dL (12.0-18.0) L 01/17/18 11:42 Hct 23.7 % (35.0-51.0) L 01/17/18 11:42 MCV 92.9 fL (80.0-94.0) 01/17/18 11:42 MCH 32.5 pg (27.0-31.0) H 01/17/18 11:42 MCHC 35.0 g/dL (33.0-37.0) 01/17/18 11:42 RDW 13.3 % (11.5-14.5) 01/17/18 11:42 Plt Count 247 K/uL (130-400) 01/17/18 11:42 MPV 7.9 fL (7.2-11.7) 01/17/18 11:42 Neut % (Auto) 68.5 % (50.0-75.0) 01/17/18 11:42 Lymph % (Auto) 20.1 % (20.0-40.0) 01/17/18 11:42 [place] % (Auto) 8.0 % (0.0-10.0) 01/17/18 11:42 Eos % (Auto) 2.7 % (0.0-4.0) 01/17/18 11:42 Baso % (Auto) 0.7 % (0.0-2.0) 01/17/18 11:42 Neut # (Auto) 5.6 K/uL (1.8-7.0) 01/17/18 11:42 Lymph # (Auto) 1.6 K/uL (1.0-4.3) 01/17/18 11:42 [place] # (Auto) 0.6 K/uL (0.0-0.8) 01/17/18 11:42 Eos # (Auto) 0.2 K/uL (0.0-0.7) 01/17/18 11:42 Baso # (Auto) 0.1 K/uL (0.0-0.2) 01/17/18 11:42 Puncture Site Rr 12/27/17 02:45 pCO2 16 mm/Hg (35-45) L* 12/27/17 02:45 pO2 125 mm/Hg (80-100) H 12/27/17 02:45 HCO3 9.5 mmol/L (21-28) L* 12/27/17 02:45 ABG pH 7.19 (7.35-7.45) L* 12/27/17 02:45 ABG Total CO2 6.6 mmol/L (22-28) L 12/27/17 02:45 ABG O2 Saturation 99.2 % (95-98) H 12/27/17 02:45 ABG Base Excess -19.8 mmol/L (-2.0-3.0) L 12/27/17 02:45 Artis Test Pos 12/27/17 02:45 ABG Potassium 4.9 mmol/L (3.6-5.2) 12/27/17 02:45 Sodium 132.0 mmol/l (132-148) 12/27/17 02:45 Chloride 95.0 mmol/L (98-107) L 12/27/17 02:45 Glucose > 750 mg/dl (75-110) H* D 12/27/17 02:45 Lactate 1.9 mmol/L (0.7-2.1) 12/27/17 02:45 Crit Value Called To Dr zhang 12/27/17 02:45 Crit Value Called By Ginny meyer 12/27/17 02:45 Crit Value Read Back Y 12/27/17 02:45 Blood Gas Notified Time 1555 12/27/17 02:45 Sodium 135 mmol/L (132-148) 01/17/18 11:42 Potassium 5.2 mmol/L (3.6-5.2) 01/17/18 11:42 Chloride 97 mmol/L (98-107) L 01/17/18 11:42 Carbon Dioxide 27 mmol/L (22-30) 01/17/18 11:42 Anion Gap 16 (10-20) 01/17/18 11:42 BUN 38 mg/dL (9-20) H 01/17/18 11:42 Creatinine 1.4 mg/dL (0.8-1.5) 01/17/18 11:42 Est GFR ( Amer) > 60 01/17/18 11:42 Est GFR (Non-Af Amer) 52 01/17/18 11:42 POC Glucose (mg/dL) 321 mg/dL (65-110) H 01/17/18 11:24 Random Glucose 323 mg/dL (75-110) H 01/17/18 11:42 Hemoglobin A1c 12.3 % (4.2-6.5) H D 12/27/17 14:27 Calcium 8.6 mg/dl (8.6-10.4) 01/17/18 11:42 Phosphorus 3.9 mg/dL (2.5-4.5) 01/12/18 12:41 Magnesium 2.1 mg/dL (1.6-2.3) 01/12/18 12:41 Total Bilirubin 0.2 mg/dL (0.2-1.3) 01/17/18 11:42 AST 23 U/L (17-59) 01/17/18 11:42 ALT 22 U/L (21-72) 01/17/18 11:42 Alkaline Phosphatase 66 U/L (38-126) 01/17/18 11:42 Total Protein 5.8 g/dL (6.3-8.3) L 01/17/18 11:42 Albumin 3.2 g/dL (3.5-5.0) L 01/17/18 11:42 Globulin 2.6 gm/dL (2.2-3.9) 01/17/18 11:42 Albumin/Globulin Ratio 1.2 (1.0-2.1) 01/17/18 11:42 Lipase 151 U/L (23-300) 12/27/17 14:27 Arterial Blood Potassium 4.9 mmol/L (3.6-5.2) 12/27/17 02:45 Urine Color Yellow (YELLOW) 12/27/17 15:11 Urine Clarity Clear (Clear) 12/27/17 15:11 Urine pH 5.0 (5.0-8.0) 12/27/17 15:11 Ur Specific [place] 1.020 (1.003-1.030) 12/27/17 15:11 Urine Protein Negative mg/dL (NEGATIVE) 12/27/17 15:11 Urine Glucose (UA) 3+ mg/dL (Normal) H 12/27/17 15:11 Urine Ketones 1+ mg/dL (NEGATIVE) H 12/27/17 15:11 Urine Blood 1+ (NEGATIVE) H 12/27/17 15:11 Urine Nitrate Negative (NEGATIVE) 12/27/17 15:11 Urine Bilirubin Negative (NEGATIVE) 12/27/17 15:11 Urine Urobilinogen Normal mg/dL (0.2-1.0) 12/27/17 15:11 Ur Leukocyte Esterase Neg William/uL (Negative) 12/27/17 15:11 Urine WBC (Auto) 1 /hpf (0-5) 12/27/17 15:11 Urine RBC (Auto) 4 /hpf (0-3) H 12/27/17 15:11 Ur Squamous Epith Cells < 1 /hpf (0-5) 12/27/17 15:11 Urine Opiates Screen Negative (NEGATIVE) 12/27/17 15:11 Urine Methadone Screen Negative (NEGATIVE) 12/27/17 15:11 Ur Barbiturates Screen Negative (NEGATIVE) 12/27/17 15:11 Valproic Acid 15.6 ug/mL (50.0-100.0) L 12/30/17 11:32 Ur Phencyclidine Scrn Negative (NEGATIVE) 12/27/17 15:11 Ur Amphetamines Screen Negative (NEGATIVE) 12/27/17 15:11 U Benzodiazepines Scrn Negative (NEGATIVE) 12/27/17 15:11 U Oth Cocaine Metabols Negative (NEGATIVE) 12/27/17 15:11 U Cannabinoids Screen Negative (NEGATIVE) 12/27/17 15:11 Alcohol, Quantitative < 10 mg/dl (0-10) 12/27/17 14:27 B-Hydroxybutyrate > 6.00 mM (0.02-0.27) H 12/27/17 18:08 - Hospital Course Hospital Course: On admission: Patient is a 57 yo male with dementia and multiple hospitalizations due to DKA who presented to the ED with elevated blood glucose and AMS. Patient is unable to provide history 2/2 to lethargic state as well as baseline dementia. Information is obtained from prior records. Patient has a history of chronic noncompliance. His most recent hospitalization was last month for DKA. 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 Patient was set up with visiting nursing services during a previous admission. On discharge: Patient admitted for DKA; he also with extensive history of hospitalization due to DKA. Patient also with frequent hyperkalemia that has been intermittently treated with kayexalate. His DM has been followed by Dr. Hernandez, program strategist, who adjusts insulin as needed. It can be labile depending on how much juice patient drinks as well. Patient remains stable and afebrile on the medicine floor without telemetry since admission on 12/27. Psych also consulted due to his schizophrenia vs. bipolar disorder. Patient with hisstory of noncompliance. There have been discussions with patient's with snf care placement, which is why patient has been hospitalized here for an extended perioud of time. Finally, case management confirmed that [facility] has accepted him as a resident on Monday 01/15. *above is just a summary of hospital events. Please see complete medical record for details. Patient instructions: Patient is stable for transfer to [facility] when bed is available. Please medication reconcilition for medications to continue at [facility]. Please note that the Clotramizole Cream is to be applied to the right upper arm rash. Please note that his blood pressure medication was adjusted on 01/15/18 so please give a few days before adjusting again: Norvasc 10 mg PO 1x/day at bedtime 10 PM and Metoprolol XL 25 mg PO 1x/day at 10 AM. Thank you! Raymond Wong D.O. *Please return to the emergency room if you have increasing chest pain, shortness of breath, Patient agrees to the above. - Date & Time of H&P Date of H&P: 01/17/18 Time of H&P: 13:57 Discharge Exam - Head Exam Head Exam: ATRAUMATIC, NORMAL INSPECTION - Eye Exam Eye Exam: EOMI, Normal appearance - ENT Exam ENT Exam: Mucous Membranes Moist - Respiratory Exam Respiratory Exam: Clear to PA & Lateral, NORMAL BREATHING PATTERN, UNREMARKABLE - Cardiovascular Exam Cardiovascular Exam: REGULAR RHYTHM. absent: Diastolic murmur, Irregular Rhythm, Systolic Murmur - GI/Abdominal Exam GI & Abdominal Exam: Normal Bowel Sounds, Soft, Unremarkable. absent: Tenderness - Extremities Exam Extremities exam: normal inspection - Neurological Exam Neurological exam: Alert - Psychiatric Exam Psychiatric exam: Normal Affect, Normal Mood - Skin Skin Exam: Dry, Intact, Normal Color, Warm Discharge Plan - Follow Up Plan Condition: FAIR Disposition: TRANSF TO SNF Instructions: Heart Failure, Adult (DC), Diabetic Ketoacidosis (DC) Additional Instructions: Patient is stable for transfer to [facility] when bed is [facility]. Please medication reconcilition for medications to continue at [facility]. Please note that the Clotramizole Cream is to be applied to the right upper arm rash. Please note that his blood pressure medication was adjusted on 01/15/18 so please give a few days before adjusting again: Norvasc 10 mg PO 1x/day at bedtime 10 PM and Metoprolol XL 25 mg PO 1x/day at 10 AM. Thank you! Raymond Wong D.O. <Raymond Wong - Last Filed: 01/19/18 20:44> Provider - Provider Date of Admission: 12/27/17 15:35 Attending physician: Raymond Wong MD Time Spent in preparation of Discharge (in minutes): 40 Hospital Course - Lab Results Lab Results: Micro Results 12/27/17 17:46 Blood Blood Culture - Final NO GROWTH AFTER 5 DAYS 12/27/17 17:46 Blood Gram Stain - Final TEST NOT PERFORMED 12/27/17 16:48 Blood Blood Culture - Final NO GROWTH AFTER 5 DAYS 12/27/17 16:48 Blood Gram Stain - Final TEST NOT PERFORMED 12/28/17 17:47 Nose MRSA Culture - Final MRSA NOT DETECTED 12/27/17 17:24 Naris MRSA Culture (Admit) - Final MRSA NOT DETECTED 12/27/17 16:41 Urine,Clean Catch Urine Culture - Final No Growth (<1,000 CFU/ML) Most Recent Lab Values WBC 8.1 K/uL (4.8-10.8) 01/17/18 11:42 RBC 2.55 Mil/uL (4.40-5.90) L 01/17/18 11:42 Hgb 8.3 g/dL (12.0-18.0) L 01/17/18 11:42 Hct 23.7 % (35.0-51.0) L 01/17/18 11:42 MCV 92.9 fL (80.0-94.0) 01/17/18 11:42 MCH 32.5 pg (27.0-31.0) H 01/17/18 11:42 MCHC 35.0 g/dL (33.0-37.0) 01/17/18 11:42 RDW 13.3 % (11.5-14.5) 01/17/18 11:42 Plt Count 247 K/uL (130-400) 01/17/18 11:42 MPV 7.9 fL (7.2-11.7) 01/17/18 11:42 Neut % (Auto) 68.5 % (50.0-75.0) 01/17/18 11:42 Lymph % (Auto) 20.1 % (20.0-40.0) 01/17/18 11:42 [place] % (Auto) 8.0 % (0.0-10.0) 01/17/18 11:42 Eos % (Auto) 2.7 % (0.0-4.0) 01/17/18 11:42 Baso % (Auto) 0.7 % (0.0-2.0) 01/17/18 11:42 Neut # (Auto) 5.6 K/uL (1.8-7.0) 01/17/18 11:42 Lymph # (Auto) 1.6 K/uL (1.0-4.3) 01/17/18 11:42 [place] # (Auto) 0.6 K/uL (0.0-0.8) 01/17/18 11:42 Eos # (Auto) 0.2 K/uL (0.0-0.7) 01/17/18 11:42 Baso # (Auto) 0.1 K/uL (0.0-0.2) 01/17/18 11:42 Puncture Site Rr 12/27/17 02:45 pCO2 16 mm/Hg (35-45) L* 12/27/17 02:45 pO2 125 mm/Hg (80-100) H 12/27/17 02:45 HCO3 9.5 mmol/L (21-28) L* 12/27/17 02:45 ABG pH 7.19 (7.35-7.45) L* 12/27/17 02:45 ABG Total CO2 6.6 mmol/L (22-28) L 12/27/17 02:45 ABG O2 Saturation 99.2 % (95-98) H 12/27/17 02:45 ABG Base Excess -19.8 mmol/L (-2.0-3.0) L 12/27/17 02:45 Artis Test Pos 12/27/17 02:45 ABG Potassium 4.9 mmol/L (3.6-5.2) 12/27/17 02:45 Sodium 132.0 mmol/l (132-148) 12/27/17 02:45 Chloride 95.0 mmol/L (98-107) L 12/27/17 02:45 Glucose > 750 mg/dl (75-110) H* D 12/27/17 02:45 Lactate 1.9 mmol/L (0.7-2.1) 12/27/17 02:45 Crit Value Called To Dr zhang 12/27/17 02:45 Crit Value Called By Ginny meyer 12/27/17 02:45 Crit Value Read Back Y 12/27/17 02:45 Blood Gas Notified Time 1555 12/27/17 02:45 Sodium 135 mmol/L (132-148) 01/17/18 11:42 Potassium 5.2 mmol/L (3.6-5.2) 01/17/18 11:42 Chloride 97 mmol/L (98-107) L 01/17/18 11:42 Carbon Dioxide 27 mmol/L (22-30) 01/17/18 11:42 Anion Gap 16 (10-20) 01/17/18 11:42 BUN 38 mg/dL (9-20) H 01/17/18 11:42 Creatinine 1.4 mg/dL (0.8-1.5) 01/17/18 11:42 Est GFR ( Amer) > 60 01/17/18 11:42 Est GFR (Non-Af Amer) 52 01/17/18 11:42 POC Glucose (mg/dL) 481 mg/dL (65-110) H* 01/17/18 21:17 Random Glucose 323 mg/dL (75-110) H 01/17/18 11:42 Hemoglobin A1c 12.3 % (4.2-6.5) H D 12/27/17 14:27 Calcium 8.6 mg/dl (8.6-10.4) 01/17/18 11:42 Phosphorus 3.9 mg/dL (2.5-4.5) 01/12/18 12:41 Magnesium 2.1 mg/dL (1.6-2.3) 01/12/18 12:41 Total Bilirubin 0.2 mg/dL (0.2-1.3) 01/17/18 11:42 AST 23 U/L (17-59) 01/17/18 11:42 ALT 22 U/L (21-72) 01/17/18 11:42 Alkaline Phosphatase 66 U/L (38-126) 01/17/18 11:42 Total Protein 5.8 g/dL (6.3-8.3) L 01/17/18 11:42 Albumin 3.2 g/dL (3.5-5.0) L 01/17/18 11:42 Globulin 2.6 gm/dL (2.2-3.9) 01/17/18 11:42 Albumin/Globulin Ratio 1.2 (1.0-2.1) 01/17/18 11:42 Lipase 151 U/L (23-300) 12/27/17 14:27 Arterial Blood Potassium 4.9 mmol/L (3.6-5.2) 12/27/17 02:45 Urine Color Yellow (YELLOW) 12/27/17 15:11 Urine Clarity Clear (Clear) 12/27/17 15:11 Urine pH 5.0 (5.0-8.0) 12/27/17 15:11 Ur Specific [place] 1.020 (1.003-1.030) 12/27/17 15:11 Urine Protein Negative mg/dL (NEGATIVE) 12/27/17 15:11 Urine Glucose (UA) 3+ mg/dL (Normal) H 12/27/17 15:11 Urine Ketones 1+ mg/dL (NEGATIVE) H 12/27/17 15:11 Urine Blood 1+ (NEGATIVE) H 12/27/17 15:11 Urine Nitrate Negative (NEGATIVE) 12/27/17 15:11 Urine Bilirubin Negative (NEGATIVE) 12/27/17 15:11 Urine Urobilinogen Normal mg/dL (0.2-1.0) 12/27/17 15:11 Ur Leukocyte Esterase Neg William/uL (Negative) 12/27/17 15:11 Urine WBC (Auto) 1 /hpf (0-5) 12/27/17 15:11 Urine RBC (Auto) 4 /hpf (0-3) H 12/27/17 15:11 Ur Squamous Epith Cells < 1 /hpf (0-5) 12/27/17 15:11 Urine Opiates Screen Negative (NEGATIVE) 12/27/17 15:11 Urine Methadone Screen Negative (NEGATIVE) 12/27/17 15:11 Ur Barbiturates Screen Negative (NEGATIVE) 12/27/17 15:11 Valproic Acid 15.6 ug/mL (50.0-100.0) L 12/30/17 11:32 Ur Phencyclidine Scrn Negative (NEGATIVE) 12/27/17 15:11 Ur Amphetamines Screen Negative (NEGATIVE) 12/27/17 15:11 U Benzodiazepines Scrn Negative (NEGATIVE) 12/27/17 15:11 U Oth Cocaine Metabols Negative (NEGATIVE) 12/27/17 15:11 U Cannabinoids Screen Negative (NEGATIVE) 12/27/17 15:11 Alcohol, Quantitative < 10 mg/dl (0-10) 12/27/17 14:27 B-Hydroxybutyrate > 6.00 mM (0.02-0.27) H 12/27/17 18:08 Attending/Attestation - Attestation I have personally seen and examined this patient.: Yes I have fully participated in the care of the patient.: Yes I have reviewed all pertinent clinical information, including history, physical exam and plan: Yes Notes (Text): 01/19/18 20:44 This is a late entry. Care of this patient and discharge instructions were gone over in detail with resident Dr. Lashanda Wynn. Raymond Wong D.O.
[2018-01-17 16:07] VITALS: BP 153/74; PULSE 73; TEMP 98.9
[2018-01-17] MEDS ORDERED: Divalproex 500 mg DR Tab PO SCH (18:00)
[2018-01-17] MEDS ORDERED: Divalproex 250 mg DR Tab PO SCH (18:00)
--- NOTE | 2018-01-17 20:28 | PN ---
DATE: 01/17/2018 ENDOCRINOLOGY FOLLOWUP NOTE LOCATION: Room 359. This is a 57-year-old male with recent uncontrolled type 2 insulin-requiring diabetes with extremes of glycemic fluctuations with bedtime hypoglycemic episodes and supervening hyperglycemic accelerations today as noted. His glucose levels were 59 actually early this morning with a glucose level of 321 at lunchtime today as noted. The latest glucose tonight is 110 mg/dL. His latest chemistry showed a BUN of 38, sodium 135, potassium 5.2, chloride 97, CO2 of 27, glucose 323, and creatinine 1.4. So at this time, we will modify once again his basal and bolus insulin regimen to adjust to the variability of his oral intake as noted. We will lower the NovoLog to 6 units subcu t.i.d. before meals to start today. We will also lower the Lantus given as basal insulin with a dose of 14 units subcu at bedtime daily to start tonight. We will titrate incrementally as indicated to optimize metabolic control. We will obtain serial chemistries and supplement accordingly as needed. We will follow. Brook Hernandez MD
[2018-01-17] MEDS: Rosuvastatin Calcium 2.5 mg Tab PO SCH (21:25)
[2018-01-17] MEDS ORDERED: (Lantus) Insulin Glargine, Recombinant SC SCH (22:00)
[2018-01-18] MEDS ORDERED: (Novolog) Insulin Aspart, Recombinant 100 u/ml 10 ml vial SC SCH (07:30)
== END 2018-01-17 21:45 ==
LOC: C.ER 14:01 → C.9E 15:35 → C.9I 16:14 → C.3T 12-28 17:49
PROVIDERS: ADMIT Family Medicine; ATTEND Family Medicine
DX: E11.10 Type 2 diabetes mellitus with ketoacidosis without coma (principal); I50.22 Chronic systolic (congestive) heart failure; N17.9 Acute kidney failure, unspecified; N18.9 Chronic kidney disease, unspecified; N39.0 Urinary tract infection, site not specified; E86.0 Dehydration; E87.5 Hyperkalemia; E87.1 Hypo-osmolality and hyponatremia; F03.91 Unspecified dementia, unspecified severity, with behavioral disturbance; I13.0 Hypertensive heart and chronic kidney disease with heart failure and stage 1 through stage 4 chronic kidney disease, or unspecified chronic kidney disease; D63.8 Anemia in other chronic diseases classified elsewhere; E11.21 Type 2 diabetes mellitus with diabetic nephropathy; E11.319 Type 2 diabetes mellitus with unspecified diabetic retinopathy without macular edema; F25.9 Schizoaffective disorder, unspecified; E11.42 Type 2 diabetes mellitus with diabetic polyneuropathy; E11.22 Type 2 diabetes mellitus with diabetic chronic kidney disease; E11.51 Type 2 diabetes mellitus with diabetic peripheral angiopathy without gangrene; I25.10 Atherosclerotic heart disease of native coronary artery without angina pectoris; R31.29 Other microscopic hematuria; G40.909 Epilepsy, unspecified, not intractable, without status epilepticus; F31.9 Bipolar disorder, unspecified; F10.11 Alcohol abuse, in remission; E78.5 Hyperlipidemia, unspecified; I25.2 Old myocardial infarction; Z75.1 Person awaiting admission to adequate facility elsewhere; Z79.02 Long term (current) use of antithrombotics/antiplatelets; Z79.82 Long term (current) use of aspirin; Z79.4 Long term (current) use of insulin; Z79.899 Other long term (current) drug therapy; Z87.891 Personal history of nicotine dependence; Z91.14 Patient's other noncompliance with medication regimen; Z91.19 Patient's noncompliance with other medical treatment and regimen